=== PATIENT | male | born 1945 | race Caucasian/White ===

== ENCOUNTER 2019-12-18 10:04 | Outpatient (REF) | payer MEDICARE, OTHER, SELFPAY ==
[2019-12-18 11:52] LABS: Basophils Percent Auto 0.7 % (0-2); Eosinophils Absolute Auto 0.2 X10*3/uL (0.0-0.4); Hematocrit 40.8 % (42-52); Hemoglobin 13.5 g/dl (14.0-18.0); Imm Gran Abs Auto 0.05 X10*3/uL (0.00-0.03); Imm Gran Pct Auto 0.9 % (0.0-0.4); Lymphocytes Absolute Auto 0.6 X10*3/uL (1.2-4.9); Lymphocytes Percent Auto 10.8 % (20-40); MANUAL DIFF FLAG SCAN; Mean Corpuscular HGB Conc 33.1 g/dl (31.0-36.0); Mean Corpuscular Hemoglobin 31.6 pg (27.0-33.0); Mean Corpuscular Volume 95.6 fL (80-98); Mean Platelet Volume 10.4 fL (9.4-12.4); Monocytes Absolute Auto 0.7 X10*3/uL (0.1-1.2); Monocytes Percent Auto 12.5 % (2-11); Neutrophils Absolute Auto 3.9 X10*3/uL (2.0-8.3); Neutrophils Percent Auto 71.1 % (45-73); Platelet Count 155 X10*3/uL (160-400); Red Blood Count 4.27 X10*6/uL (4.60-5.80); Red Cell Distribution Width 12.9 % (11.0-16.0); SCAN SMEAR FLAG 1; White Blood Count 5.4 X10*3/uL (4.8-10.8)
[2019-12-18 12:08] LABS: Glucose Urine UA NEG (NEG); Leukocyte Esterase Urine NEG (NEG); Nitrite Urine NEG (NEG); Specific Gravity - Urine 1.025 (1.005-1.025); Urine Blood NEG (NEG); Urine Ketones NEG (NEG); Urine Protein NEG (NEG-TRACE)
[2019-12-18 12:18] LABS: Appearance Urine HAZY; Color Urine YELLOW
[2019-12-18 12:21] LABS: Alanine Aminotransferase 28 U/L (0-40); Albumin Level 3.9 g/dL (3.5-5.0); Alkaline Phosphatase 78 U/L (39-117); Anion Gap 15 (12-20); Aspartate Amino Transferase 29 U/L (5-37); Bilirubin Total 0.7 mg/dL (0.0-1.0); Blood Urea Nitrogen 22 mg/dL (9-16); Calcium 9.4 mg/dL (8.4-10.2); Carbon Dioxide 22 mmol/L (22-29); Chloride 107 mmol/L (96-108); Cholesterol 114 mg/dL; Estimated Glomerular Filt Rate > 60; Glucose Fasting 94 mg/dL (60-99); HDL Cholesterol 44 mg/dL; LDL Cholesterol Calculated 55 mg/dl; Potassium 4.2 mmol/l (3.3-5.1); Sodium 140 mmol/L (135-145); Total Protein 7.3 g/dL (6.5-8.0); Triglycerides 77 mg/dL
[2019-12-18 12:39] LABS: SLIDE REVIEW VERIFIED
[2019-12-18 12:44] LABS: Prostate Specific Antigen 0.52 ng/mL (<0.05-4.0)
[2019-12-18 14:02] LABS: Reflex LDLD? No
== END 2019-12-18 10:05 | disposition home or self-care (01) ==
LOC: HO.LAB 10:04
PROVIDERS: PCP Internal Medicine; Visit Provider Internal Medicine
DX: E78.00 Pure hypercholesterolemia, unspecified (principal); D86.9 Sarcoidosis, unspecified; M87.051 Idiopathic aseptic necrosis of right femur
CPT/HCPCS: 36415; 80053; 80061; 81003; 84153; 85025

== ENCOUNTER → 2020-04-21 11:16 | Outpatient (BNVA) | payer MEDICARE, OTHER, SELFPAY | PROVIDERS: PCP Internal Medicine; Visit Provider Hospitalist | DX: D86.9 Sarcoidosis, unspecified (principal); J45.40 Moderate persistent asthma, uncomplicated; J30.9 Allergic rhinitis, unspecified | CPT/HCPCS: Q3014 ==

== ENCOUNTER 2020-06-16 10:51 | Outpatient (REF) | payer MEDICARE, OTHER, SELFPAY ==
[2020-06-16 12:26] LABS: Alanine Aminotransferase 32 U/L (0-40); Alkaline Phosphatase 72 U/L (39-117); Aspartate Amino Transferase 32 U/L (5-37); Bilirubin Direct 0.4 mg/dL (0.0-0.5); Cholesterol 122 mg/dL; HDL Cholesterol 43 mg/dL; LDL Cholesterol Calculated 57 mg/dl; Total Protein 7.2 g/dL (6.5-8.0); Triglycerides 112 mg/dL
[2020-06-16 13:27] LABS: Reflex LDLD? No
== END 2020-06-16 10:52 | disposition home or self-care (01) ==
LOC: HO.LNP 10:51
PROVIDERS: Visit Provider Internal Medicine
DX: E78.00 Pure hypercholesterolemia, unspecified (principal)
CPT/HCPCS: 80061; 80076

== ENCOUNTER 2020-06-18 13:44 | Outpatient (REF) | payer MEDICARE, OTHER, SELFPAY ==
[2020-06-18 13:59] LABS: Basophils Percent Auto 0.7 % (0-2); Eosinophils Absolute Auto 0.3 X10*3/uL (0.0-0.4); Eosinophils Percent Auto 4.6 % (0-4); Hematocrit 42.1 % (42-52); Hemoglobin 13.8 g/dl (14.0-18.0); Imm Gran Abs Auto 0.07 X10*3/uL (0.00-0.03); Imm Gran Pct Auto 1.2 % (0.0-0.4); Lymphocytes Absolute Auto 0.6 X10*3/uL (1.2-4.9); Lymphocytes Percent Auto 9.4 % (20-40); MANUAL DIFF FLAG SCAN; Mean Corpuscular HGB Conc 32.8 g/dl (31.0-36.0); Mean Corpuscular Hemoglobin 32.1 pg (27.0-33.0); Mean Corpuscular Volume 97.9 fL (80-98); Mean Platelet Volume 11.7 fL (9.4-12.4); Monocytes Absolute Auto 0.7 X10*3/uL (0.1-1.2); Monocytes Percent Auto 11.2 % (2-11); Neutrophils Absolute Auto 4.3 X10*3/uL (2.0-8.3); Neutrophils Percent Auto 72.9 % (45-73); Platelet Count 144 X10*3/uL (160-400); Red Cell Distribution Width 13.3 % (11.0-16.0); SCAN SMEAR FLAG 1; White Blood Count 5.9 X10*3/uL (4.8-10.8)
[2020-06-18 14:36] LABS: Iron 93 mcg/dL (45-160); Percent Iron Saturation 32 % (15-50); Total Iron Binding Capacity 289 mcg/dL (228-428); Unsaturated Iron Binding 196 ug/dL
[2020-06-18 14:44] LABS: SLIDE REVIEW VERIFIED
[2020-06-18 15:01] LABS: Thyroid Stimulating Hormone 2.37 uIU/mL (0.32-4.0)
== END 2020-06-18 13:45 | disposition home or self-care (01) ==
LOC: HO.LNP 13:44
PROVIDERS: Visit Provider Internal Medicine
DX: R53.83 Other fatigue (principal); R06.02 Shortness of breath
CPT/HCPCS: 83540; 84443; 85025

== ENCOUNTER 2020-06-23 07:55 | Outpatient (REF) | payer MEDICARE, OTHER, SELFPAY ==
--- NOTE | ~2020-06-23 | XR_ITS ---
EXAMINATION: XR CHEST CLINICAL INFORMATION: Moderate persistent asthma COMPARISON: Chest x-ray November 07, 2016 TECHNIQUE: 2 views of the chest were obtained. FINDINGS: Cardiac silhouette is normal in size. The lungs are adequately aerated. Mild interval increase in prominence of interstitial markings diffusely, particularly the left upper lobe. Previously visualized fibrotic changes and scarring with calcifications of the right lung apex is again noted. No pneumothorax or pleural effusion. Mild to moderate diffuse degenerative changes of the spine. XR/XR chest 2V IMPRESSION: Mild interval worsening in prominence of the interstitial markings diffusely, particularly within the left upper lobe. This may represent progression of chronic changes, however, superimposed left upper lobe infiltrate or mass is within the differential. Clinical correlation is recommended. Further evaluation with chest CT may be warranted.
[2020-06-23 09:48] LABS: B Type Natriuretic Peptide 220 pg/mL (<100); Troponin-I High Sensitivity 13.5 ng/L (<3.5-35.0)
[2020-06-23 09:53] LABS: Anion Gap 11 (12-20); Blood Urea Nitrogen 24 mg/dL (9-16); Calcium 9.8 mg/dL (8.4-10.2); Carbon Dioxide 28 mmol/L (22-29); Chloride 108 mmol/L (96-108); Estimated Glomerular Filt Rate 49; Glucose Random 101 mg/dL (60-115); Potassium 4.8 mmol/L (3.3-5.1); Sodium 142 mmol/L (135-145)
[2020-06-23 10:15] LABS: Erythrocyte Sedimentation Rate 7 MM/HR (0-15)
[2020-06-24 10:01] LABS: Immunoglobulin E 381 kU/L (<OR=114)
[2020-06-24 14:07] LABS: Anti Nuclear Antibody Screen NEGATIVE (NEGATIVE)
[2020-07-04 01:31] LABS: Angiotensin Converting Enzyme 30 U/L (9-67)
== END 2020-06-23 07:56 | disposition home or self-care (01) ==
LOC: HO.XRAY 07:55
PROVIDERS: PCP Internal Medicine; Visit Provider Hospitalist
DX: J45.40 Moderate persistent asthma, uncomplicated (principal); J30.9 Allergic rhinitis, unspecified; D86.9 Sarcoidosis, unspecified
CPT/HCPCS: 36415; 71046; 80048; 82164; 82785; 83880; 84484; 85652; 86038; 86039; 99212

== ENCOUNTER → 2020-06-24 14:59 | Outpatient (REF) | payer MEDICARE, OTHER, SELFPAY ==
--- NOTE | 2020-06-24 15:04 | CA_ITS ---
Transthoracic Echocardiogram Patient (Last, First, Middle): Erasmo Quevedo B Gender: Male Date of : 1945 Age: 75 Procedure Date: 06/24/2020 Procedure Type: Transthoracic Echocardiogram Location: OP Height: 172.72 cm Weight: 106.6 kg BSA: 2.19 m2 Heart Rate: bpm BP: 135 / 68 mmHg Window Dresser: Referring MD: Sebastian Patricia MD Play Reader: Joon Hopper MD Symptoms: I27.20 - Pulmonary hypertension, unspecified Study Quality: Fair ECG Rhythm: Sinus Conclusions: - 1. Normal LV systolic function with impaired relaxation filling pattern 2. Fibrocalcific aortic valve changes noted with mildly increased gradient suggestive of early aortic stenosis 3. Normal RV systolic pressure 4. No pericardial effusion Findings Left Ventricle Normal left ventricular size and systolic function. There is mildly increased left ventricular wall thickness. The visually estimated ejection fraction is between 60-65%. Spectral Doppler is indicative of an impaired relaxation filling pattern. E/E prime ratio is between 8 and 15 consistent with indeterminate filling pressures. Right Ventricle Normal right ventricular cavity size and systolic function. Atria The left atrium is mildly dilated. There is no evidence of interatrial shunt. The right atrium was not well visualized. Aortic Valve The aortic valve was not well visualized. There is mild calcification of the aortic valve. There is mild thickening of the aortic valve. The mean gradient is 10 mmHg. The aortic valve area is 2.13 cm2. There is no aortic valve regurgitation. Mitral Valve Normal mitral valve structure and function. There is trace mitral valve regurgitation. There is no mitral valve stenosis. Pulmonic Valve The pulmonic valve was not well visualized. Tricuspid Valve Likely normal tricuspid valve structure and function. There is trace tricuspid valve regurgitation. The right ventricular systolic pressure is normal. The right ventricular systolic pressure is 18 mmHg. Normal right atrial pressure. There is no evidence of pulmonary hypertension. Great Vessels All visible segments of the aorta are normal in size. The pulmonary artery was not well visualized. Venous The inferior vena cava is normal in size and collapses greater than 50% with inspiration. Pericardium/Pleural There is no evidence of pericardial effusion. Measurements 2D Linear Measurements IVSd: 1.26 0.6-0.9/0.6-1.0 cm LVIDd: 5.47 3.9-5.3/4.2-5.9 cm LVIDd Index: 2.50 2.4-3.2/2.2-3.1 cm/m2 LVIDs: 3.79 2.0-3.6 cm LVPWd: 1.27 0.7-1.1 cm Ao Root: 3.30 2.1-3.5 cm LA Diam: 4.80 2.7-3.8/3.0-4.0 cm LAIDs Index: 2.19 1.5-2.3 cm/m2 LV Mass: 362.27 67-162/88-224 g LV Mass Index: 165.42 43-95/49-115 g/m2 LVOT Diam: 2.60 3.0+(-)1.3 cm Mitral Valve MV Pk E: 0.59 MV PK A: 0.52 MV Decel Time: 239.00 E/A: 1.10 E'Lateral: 7.25 E'Medial: 5.42 E/E' Med: 10.80 E/E' Lat: 8.10 PHT: 70.00 MVA PHT: 3.14 Decel [place]: 2.45 Aortic Valve AoV Pk John: 2.05 AoV Mn John: 1.46 AoV VTI: 0.50 AoV Pk Grad: 17.00 Aov Mn Grad: 10.00 NATHALIE Cont.VTI: 2.13 LVOT LVOT Pk John: 0.93 LVOT Mn John: 0.63 LVOT VTI: 0.20 LVOT Pk Grad: 3.00 LVOT Mn Grad: 2.00 LVOT Diam: 2.60 LVOT Area: 5.31 Diastolic Function MV Pk E: 0.59 MV Pk A: 0.52 E/A: 1.10 E'Medial: 5.42 E/E' Med: 10.80 E' Laterial: 7.25 E/E' Lat: 8.10 Tricuspid Valve TR Pk John: 1.95 TR Pk Grad: 15.00 RA Press: 3.00 RVSP: 18.00 Great Vessels Aorta Ao Root-2D: 3.30 2.0-3.7 cm Ao Asc: 3.40 2.1-3.4 cm Pulmonary Valve PV Pk John: 0.87 Peak PV Grad: 3.00 Updated in Other Vendor System with Status of Final Joon Hopper MD electronically signed on 06/25/2020 4:21:44 PM with status of Final
== END ==
LOC: HO.CARD 14:59
PROVIDERS: Visit Provider Hospitalist
DX: I27.20 Pulmonary hypertension, unspecified (principal)
CPT/HCPCS: 93306

== ENCOUNTER 2020-06-29 12:49 | Outpatient (REF) | payer MEDICARE, OTHER, SELFPAY ==
--- NOTE | ~2020-06-29 | XR_ITS ---
EXAMINATION: XR CHEST CLINICAL INFORMATION: Sarcoidosis. COMPARISON: Previous chest x-ray May 2020 TECHNIQUE: 2 views of the chest were obtained. FINDINGS: The cardiac silhouette does not appear enlarged. The pulmonary [place] are prominent. This is unchanged. There are increased interstitial markings. There are small nodules. There is a larger abnormal parenchymal density in the left upper lobe and the left hilar region. These findings appear unchanged from previous chest x-rays. There is no pleural effusion or pneumothorax. There are degenerative changes of the spine. XR/XR chest 2V IMPRESSION: Stable chest x-ray findings.
[2020-06-29 15:01] LABS: Anion Gap 13 (12-20); Blood Urea Nitrogen 29 mg/dL (9-16); Calcium 9.4 mg/dL (8.4-10.2); Carbon Dioxide 26 mmol/L (22-29); Chloride 107 mmol/L (96-108); Estimated Glomerular Filt Rate 46; Glucose Random 100 mg/dL (60-115); Potassium 4.3 mmol/L (3.3-5.1); Sodium 142 mmol/L (135-145)
== END 2020-06-29 12:50 | disposition home or self-care (01) ==
LOC: HO.RESP 12:49
PROVIDERS: PCP Internal Medicine; Visit Provider Hospitalist
DX: J45.40 Moderate persistent asthma, uncomplicated (principal); D86.9 Sarcoidosis, unspecified
CPT/HCPCS: 36415; 71046; 80048; 94060; 94727; 94729

== ENCOUNTER → 2020-07-06 10:41 | Outpatient (BNVA) | payer MEDICARE, OTHER, SELFPAY | PROVIDERS: PCP Internal Medicine; Referring Provider Internal Medicine; Visit Provider Internal Medicine Cardiovascular Disease | DX: I25.10 Atherosclerotic heart disease of native coronary artery without angina pectoris (principal); R06.02 Shortness of breath | CPT/HCPCS: 93005; 99212 ==

== ENCOUNTER → 2020-07-10 10:02 | Outpatient (BNVA) | payer MEDICARE, OTHER, SELFPAY | PROVIDERS: PCP Internal Medicine; Visit Provider Hospitalist | DX: J98.4 Other disorders of lung (principal); J45.40 Moderate persistent asthma, uncomplicated; R06.01 Orthopnea | CPT/HCPCS: 99212 ==

== ENCOUNTER 2020-07-20 09:41 | Outpatient (REF) | payer MEDICARE, OTHER, SELFPAY ==
--- NOTE | ~2020-07-20 | CT_ITS ---
EXAMINATION: CT CHEST WITHOUT CONTRAST CLINICAL INFORMATION: Sarcoidosis. COMPARISON: Chest x-ray 06/29/2020. TECHNIQUE: Multidetector volumetric CT imaging of the chest was done. Axial MIP volume rendering provided. Sagittal and coronal reformatted images were obtained. This CT examination was performed using dose optimization techniques as appropriate, variously including the following: *Automated exposure control *Adjustment of mA and/or kV according to patient size (this includes techniques or standardized protocols for targeted exams where dose is matched to indication/reason for exam; i.e. extremities or head) *Use of iterative reconstruction technique DLP: 251 mGy-cm. FINDINGS: COMMUNITY CENTER WORKER: Expanded lungs with increased interstitial markings in both lungs. No consolidation seen. LUNGS: There are patchy parenchymal opacities in both upper lobes condensing into larger opacities and extending to the suprahilar region bilaterally. There are multiple bilateral vysza-mn-naklqmbl-sized pulmonary nodule seen in both upper lobes, and both lower lower lobes numerous to count. There are less nodules seen in the right middle lobe and the lingula. MEDIASTINUM: The thyroid lobes are symmetrical and normal. The central trachea and the bronchi are widely patent. There are multiple calcified tjafl-ai-dsgjhacb sized mediastinal lymph nodes. The heart size and the great vessels are normal caliber. There are coronary artery calcifications. No pleural effusion seen. PLEURA: There is no pleural effusion. No pleural mass or thickening. AXILLA: No lymphadenopathy. UPPER ABDOMEN: Visualized liver, spleen, pancreas and bilateral adrenal glands are unremarkable. OSSEOUS STRUCTURES: No lytic or sclerotic process seen. CT/CT chest wo con IMPRESSION: Bilateral patchy parenchymal opacities and nodules in both upper and lower lobes consistent with sarcoid disease. There are numerous calcified mediastinal lymph nodes. There is no pleural effusion or pleural thickening.
== END 2020-07-20 09:42 | disposition home or self-care (01) ==
LOC: HO.CT 09:41
PROVIDERS: PCP Internal Medicine; Visit Provider Hospitalist
DX: D86.9 Sarcoidosis, unspecified (principal); R06.01 Orthopnea; J98.4 Other disorders of lung
CPT/HCPCS: 71250

== ENCOUNTER → 2020-08-07 09:45 | Outpatient (BNVA) | payer MEDICARE, OTHER, SELFPAY | PROVIDERS: PCP Internal Medicine; Visit Provider Hospitalist | DX: J98.4 Other disorders of lung (principal); J45.40 Moderate persistent asthma, uncomplicated; J30.9 Allergic rhinitis, unspecified; N18.9 Chronic kidney disease, unspecified; D86.9 Sarcoidosis, unspecified; R06.02 Shortness of breath | CPT/HCPCS: 99212 ==

== ENCOUNTER 2020-09-29 13:22 | Outpatient (REF) | payer MEDICARE, OTHER, SELFPAY ==
[2020-09-29 14:30] LABS: MANUAL DIFF FLAG NO
[2020-09-29 14:40] LABS: Basophils Percent Auto 0.5 % (0-2); Eosinophils Absolute Auto 0.2 X10*3/uL (0.0-0.4); Eosinophils Percent Auto 3.9 % (0-4); Hematocrit 40.6 % (42-52); Hemoglobin 13.4 g/dl (14.0-18.0); Imm Gran Abs Auto 0.03 X10*3/uL (0.00-0.03); Imm Gran Pct Auto 0.5 % (0.0-0.4); Lymphocytes Absolute Auto 0.7 X10*3/uL (1.2-4.9); Lymphocytes Percent Auto 12.9 % (20-40); Mean Corpuscular Hemoglobin 31.9 pg (27.0-33.0); Mean Corpuscular Volume 96.7 fL (80-98); Mean Platelet Volume 10.5 fL (9.4-12.4); Monocytes Absolute Auto 0.7 X10*3/uL (0.1-1.2); Monocytes Percent Auto 13.1 % (2-11); Neutrophils Absolute Auto 3.8 X10*3/uL (2.0-8.3); Neutrophils Percent Auto 69.1 % (45-73); Platelet Count 147 X10*3/uL (160-400); Red Cell Distribution Width 13.2 % (11.0-16.0); White Blood Count 5.6 X10*3/uL (4.8-10.8)
[2020-09-29 15:12] LABS: Alanine Aminotransferase 25 U/L (0-40); Albumin Level 3.7 g/dL (3.5-5.0); Alkaline Phosphatase 73 U/L (39-117); Anion Gap 13 (12-20); Aspartate Amino Transferase 27 U/L (5-37); Bilirubin Direct 0.3 mg/dL (0.0-0.5); Bilirubin Total 0.8 mg/dL (0.0-1.0); Blood Urea Nitrogen 19 mg/dL (9-16); Calcium 9.4 mg/dL (8.4-10.2); Carbon Dioxide 22 mmol/L (22-29); Chloride 110 mmol/L (96-108); Estimated Glomerular Filt Rate 58; Glucose Random 102 mg/dL (60-115); Potassium 4.5 mmol/L (3.3-5.1); Sodium 140 mmol/L (135-145); Total Protein 6.9 g/dL (6.5-8.0)
[2020-09-29 15:15] LABS: B Type Natriuretic Peptide 239 pg/mL (<100)
[2020-09-29 15:27] LABS: Erythrocyte Sedimentation Rate 12 MM/HR (0-15)
== END 2020-09-29 13:23 | disposition home or self-care (01) ==
LOC: HO.LAB 13:22
PROVIDERS: PCP Internal Medicine; Visit Provider Hospitalist
DX: D86.9 Sarcoidosis, unspecified (principal); I25.10 Atherosclerotic heart disease of native coronary artery without angina pectoris; J98.4 Other disorders of lung; R06.02 Shortness of breath
CPT/HCPCS: 36415; 80048; 80076; 83880; 85025; 85652

== ENCOUNTER 2020-10-29 10:19 | Outpatient (REF) | payer MEDICARE, OTHER, SELFPAY ==
[2020-10-29 10:52] LABS: MANUAL DIFF FLAG NO
[2020-10-29 11:29] LABS: Basophils Percent Auto 0.4 % (0-2); Eosinophils Absolute Auto 0.2 X10*3/uL (0.0-0.4); Eosinophils Percent Auto 4.5 % (0-4); Hematocrit 41.6 % (42-52); Imm Gran Abs Auto 0.06 X10*3/uL (0.00-0.03); Imm Gran Pct Auto 1.2 % (0.0-0.4); Lymphocytes Absolute Auto 0.6 X10*3/uL (1.2-4.9); Lymphocytes Percent Auto 11.5 % (20-40); Mean Corpuscular HGB Conc 33.7 g/dl (31.0-36.0); Mean Corpuscular Hemoglobin 32.3 pg (27.0-33.0); Mean Corpuscular Volume 96.1 fL (80-98); Mean Platelet Volume 10.6 fL (9.4-12.4); Monocytes Absolute Auto 0.6 X10*3/uL (0.1-1.2); Monocytes Percent Auto 12.1 % (2-11); Neutrophils Absolute Auto 3.5 X10*3/uL (2.0-8.3); Neutrophils Percent Auto 70.3 % (45-73); Platelet Count 151 X10*3/uL (160-400); Red Blood Count 4.33 X10*6/uL (4.60-5.80); Red Cell Distribution Width 13.1 % (11.0-16.0); White Blood Count 4.9 X10*3/uL (4.8-10.8)
[2020-10-29 11:31] LABS: Glucose Urine UA NEG (NEG); Leukocyte Esterase Urine NEG (NEG); Nitrite Urine NEG (NEG); Specific Gravity - Urine 1.015 (1.005-1.025); Urine Blood NEG (NEG); Urine Ketones NEG (NEG); Urine Protein NEG (NEG-TRACE)
[2020-10-29 11:34] LABS: Appearance Urine CLEAR; Color Urine YELLOW
[2020-10-29 11:42] LABS: Anion Gap 11 (12-20); Blood Urea Nitrogen 20 mg/dL (9-16); Carbon Dioxide 23 mmol/L (22-29); Chloride 108 mmol/L (96-108); Estimated Glomerular Filt Rate > 60; Phosphorus 2.9 mg/dL (2.7-4.5); Potassium 4.4 mmol/L (3.3-5.1); Sodium 138 mmol/L (135-145)
[2020-10-29 11:50] LABS: B Type Natriuretic Peptide 135 pg/mL (<100)
[2020-10-29 12:10] LABS: Creatinine, mg/dL 80.57
[2020-10-29 12:13] LABS: Creatinine Urine 134.28 mg/dL; Microalbum/Creatinine Ratio Ur 5.9 ug/mg cr; Total Protein Urine Random < 7 mg/dL (<12)
[2020-10-29 12:26] LABS: Creatinine, 24Hr Urine 1.1 G/Day (1.0-2.0); Sodium 24 Hr Urine 141.1 mmol/Day (40-220); Total Volume 24 Hour Urine 1425 mL
[2020-10-29 12:48] LABS: Creatinine (CrCl) 1.16 mg/dL (0.5-1.4); Creatinine Clearance 68.7 mL/min (85-125)
[2020-10-30 12:34] LABS: Calcium 9.8 mg/dL (8.4-10.2)
[2020-10-30 17:51] LABS: Calcium (PTHI) 9.7 mg/dL (8.6-10.3); PTHI 17 pg/mL (14-64)
== END 2020-10-29 10:20 | disposition home or self-care (01) ==
LOC: HO.LAB 10:19
PROVIDERS: Internal Medicine Nephrology; PCP Internal Medicine; Visit Provider Internal Medicine Nephrology
DX: N20.0 Calculus of kidney (principal); D86.0 Sarcoidosis of lung; N18.31 Chronic kidney disease, stage 3a; N25.0 Renal osteodystrophy
CPT/HCPCS: 36415; 80051; 81003; 82040; 82043; 82306; 82308; 82310; 82565; 82575; 83880; 83970; 84100; 84156; 84300; 84520; 85025; 87086

== ENCOUNTER 2020-11-06 | Outpatient (REF) | payer MEDICARE, OTHER, SELFPAY | END 2020-11-06 00:01 | disposition home or self-care (01) | LOC: CF | PROVIDERS: Visit Provider Hospitalist | DX: J98.4 Other disorders of lung (principal); N18.9 Chronic kidney disease, unspecified; R06.02 Shortness of breath; J45.40 Moderate persistent asthma, uncomplicated; J30.9 Allergic rhinitis, unspecified; D86.9 Sarcoidosis, unspecified; I25.10 Atherosclerotic heart disease of native coronary artery without angina pectoris; I49.3 Ventricular premature depolarization; I47.2 Ventricular tachycardia; Z88.0 Allergy status to penicillin; Z88.8 Allergy status to other drugs, medicaments and biological substances; Z91.041 Radiographic dye allergy status; Z95.5 Presence of coronary angioplasty implant and graft | CPT/HCPCS: 99212 ==

== ENCOUNTER 2020-12-28 11:04 | Outpatient (REF) | payer MEDICARE, OTHER, SELFPAY ==
[2020-12-28 11:08] LABS: MANUAL DIFF FLAG NO
[2020-12-28 11:12] LABS: Basophils Absolute Auto 0.1 X10*3/uL (0.0-0.2); Basophils Percent Auto 0.9 % (0-2); Eosinophils Absolute Auto 0.3 X10*3/uL (0.0-0.4); Eosinophils Percent Auto 5.3 % (0-4); Hematocrit 44.2 % (42.0-52.0); Hemoglobin 14.5 g/dl (14.0-18.0); Imm Gran Abs Auto 0.04 X10*3/uL (0.00-0.03); Imm Gran Pct Auto 0.7 % (0.0-0.4); Lymphocytes Absolute Auto 0.9 X10*3/uL (1.2-4.9); Lymphocytes Percent Auto 16.7 % (20-40); Mean Corpuscular HGB Conc 32.8 g/dl (31.0-36.0); Mean Corpuscular Hemoglobin 32.4 pg (27.0-33.0); Mean Corpuscular Volume 98.7 fL (80.0-98.0); Mean Platelet Volume 11.7 fL (9.4-12.4); Monocytes Absolute Auto 0.6 X10*3/uL (0.1-1.2); Monocytes Percent Auto 11.7 % (2-11); Neutrophils Absolute Auto 3.52 x10*3/uL (2.0-8.3); Neutrophils Percent Auto 64.7 % (45-73); Platelet Count 151 X10*3/uL (160-400); Red Blood Count 4.48 X10*6/uL (4.60-5.80); Red Cell Distribution Width 12.8 % (11.0-16.0); White Blood Count 5.5 X10*3/uL (4.8-10.8)
[2020-12-28 11:41] LABS: Alanine Aminotransferase 33 U/L (0-40); Albumin Level 3.9 g/dL (3.5-5.0); Alkaline Phosphatase 69 U/L (39-117); Anion Gap 14 (12-20); Aspartate Amino Transferase 32 U/L (5-37); Bilirubin Total 1.1 mg/dL (0.0-1.0); Blood Urea Nitrogen 21 mg/dL (9-16); Calcium 9.8 mg/dL (8.4-10.2); Carbon Dioxide 27 mmol/L (22-29); Chloride 105 mmol/L (96-108); Cholesterol 110 mg/dL; Estimated Glomerular Filt Rate 55; Glucose Fasting 110 mg/dL (60-99); HDL Cholesterol 42 mg/dL; LDL Cholesterol Calculated 48 mg/dl; Potassium 4.5 mmol/L (3.3-5.1); Sodium 141 mmol/L (135-145); Total Protein 7.2 g/dL (6.5-8.0); Triglycerides 101 mg/dL
[2020-12-28 11:48] LABS: Appearance Urine CLEAR; Color Urine YELLOW; Glucose Urine UA NEG (NEG); Leukocyte Esterase Urine NEG (NEG); Nitrite Urine NEG (NEG); PH 6.5 (5.0-8.0); Urine Blood NEG (NEG); Urine Ketones NEG (NEG); Urine Protein NEG (NEG-TRACE)
[2020-12-28 11:58] LABS: Reflex LDLD? No
[2020-12-28 12:02] LABS: PSA,Total (Free>4and<10) 0.35 ng/mL (0.00-4.00)
== END 2020-12-28 11:05 | disposition home or self-care (01) ==
LOC: HO.LNP 11:04
PROVIDERS: Visit Provider Internal Medicine
DX: E78.00 Pure hypercholesterolemia, unspecified (principal); D86.9 Sarcoidosis, unspecified
CPT/HCPCS: 80053; 80061; 81003; 84153; 85025

== ENCOUNTER → 2021-01-07 10:14 | Outpatient (BNVA) | payer MEDICARE, OTHER, SELFPAY | PROVIDERS: PCP Internal Medicine; Referring Provider Internal Medicine; Visit Provider Internal Medicine Cardiovascular Disease | DX: I25.10 Atherosclerotic heart disease of native coronary artery without angina pectoris (principal); I49.3 Ventricular premature depolarization; R06.02 Shortness of breath | CPT/HCPCS: 99212 ==

== ENCOUNTER 2021-03-16 09:03 | Outpatient (REF) | payer MEDICARE, OTHER, SELFPAY ==
--- NOTE | 2021-03-16 | PFT_ITS ---
FLOWS: FEV1 78% of predicted at 2.39 L. FVC 72% of predicted at 3.06 L. FEV1 to FVC ratio of 0.78. No bronchodilator response except in ylkkr-ty-iusobo airways. LUNG VOLUMES: Total lung capacity 74% of predicted at 5.23 L. Residual volume 73% of predicted at 1.88 L. FVC 74% of predicted at 3.35 L. Expiratory reserve volume 7% of predicted at 0.10 L. Diffusion capacity is mildly decreased, diffusion capacity adjusted to normal after correction for alveolar ventilation. IMPRESSION: Moderate restrictive ventilatory defect with no bronchodilator response except in qpkzw-kk-bgysdp airways. Decreased expiratory reserve volume suggests extrathoracic restriction likely secondary to abdominal obesity. Decreased diffusion capacity suggests emphysema. MD CHACHO Bustos/MODL / [id number]
== END 2021-03-16 09:04 | disposition home or self-care (01) ==
LOC: HO.RESP 09:03
PROVIDERS: PCP Internal Medicine; Visit Provider Hospitalist
DX: J44.9 Chronic obstructive pulmonary disease, unspecified (principal); J98.4 Other disorders of lung; R06.02 Shortness of breath; J45.40 Moderate persistent asthma, uncomplicated; J30.9 Allergic rhinitis, unspecified; D86.9 Sarcoidosis, unspecified; N18.9 Chronic kidney disease, unspecified
CPT/HCPCS: 94060; 94727; 94729; 99212

== ENCOUNTER → 2021-06-09 13:24 | Outpatient (REF) | payer MEDICARE, OTHER, SELFPAY ==
--- NOTE | 2021-06-09 14:07 | CA_ITS ---
Transthoracic Echocardiogram Patient (Last, First, Middle): Erasmo Quevedo B Gender: Male Date of : 1945 Age: 76 Procedure Date: 06/09/2021 Procedure Type: Transthoracic Echocardiogram Location: OP Height: 180.34 cm Weight: 100.7 kg BSA: 2.20 m2 Heart Rate: bpm BP: 125 / 76 mmHg Ship Pilot: DANNA Referring MD: Joon Hopper MD Er Tech: Joon Hopper MD Symptoms: R06.02 - Shortness of breath Study Quality: Technically Difficult ECG Rhythm: Sinus Conclusions: - 1. Mildly reduced LV systolic function with LVEF of 45-50% with impaired relaxation filling pattern 2. Normal cardiac valvular Doppler 3. Normal RV systolic pressure 4. No gross pericardial effusion Findings Left Ventricle The left ventricle was not well visualized. There is normal left ventricular wall thickness. The left ventricular systolic function is mildly decreased. The visually estimated ejection fraction is between 45-50%. Spectral Doppler is indicative of an impaired relaxation filling pattern. E/E prime ratio is between 8 and 15 consistent with indeterminate filling pressures. Right Ventricle The right ventricle was not well visualized. Atria The left atrium was not well visualized. Interatrial shunt cannot be excluded. The right atrium was not well visualized. Aortic Valve There is mild calcification of the aortic valve. There is moderate thickening of the aortic valve. There is no aortic valve stenosis. There is no aortic valve regurgitation. Mitral Valve There is mild anterior mitral leaflet thickening. There is trace mitral valve regurgitation. There is no mitral valve stenosis. Pulmonic Valve The pulmonic valve was not well visualized. Tricuspid Valve The tricuspid valve was not well visualized. There is trace tricuspid valve regurgitation. The right ventricular systolic pressure is normal. The right ventricular systolic pressure is 22 mmHg. Normal right atrial pressure. There is no evidence of pulmonary hypertension. Great Vessels All visible segments of the aorta are normal in size. The pulmonary artery was not well visualized. Venous The inferior vena cava is normal in size and collapses greater than 50% with inspiration. Pericardium/Pleural There is no evidence of pericardial effusion. Prior Study Comparison Changes noted compared to prior study dated: 06/24/2020. LV systolic function is reduced Measurements 2D Linear Measurements IVSd: 1.33 0.6-0.9/0.6-1.0 cm LVIDd: 5.91 3.9-5.3/4.2-5.9 cm LVIDd Index: 2.69 2.4-3.2/2.2-3.1 cm/m2 LVIDs: 4.71 2.0-3.6 cm LVPWd: 1.06 0.7-1.1 cm LA Diam: 4.40 2.7-3.8/3.0-4.0 cm LAIDs Index: 2.00 1.5-2.3 cm/m2 LV Mass: 379.98 67-162/88-224 g LV Mass Index: 172.72 43-95/49-115 g/m2 LVOT Diam: 2.50 3.0+(-)1.3 cm 2D Systolic Function EF 4C: 50.50 >55% EF 2C: 45.80 >55% EF BiP: 47.80 >55% Mitral Valve MV Pk E: 0.46 MV PK A: 0.49 MV Decel Time: 313.00 E/A: 0.90 E'Lateral: 3.92 E'Medial: 3.15 E/E' Med: 14.50 E/E' Lat: 11.70 PHT: 92.00 MVA PHT: 2.39 Decel [place]: 1.47 Aortic Valve AoV Pk John: 1.61 AoV Mn John: 1.09 AoV VTI: 0.33 AoV Pk Grad: 10.00 Aov Mn Grad: 5.00 NATHALIE Cont.VTI: 2.28 LVOT LVOT Pk John: 0.71 LVOT Mn John: 0.48 LVOT VTI: 0.15 LVOT Pk Grad: 2.00 LVOT Mn Grad: 1.00 LVOT Diam: 2.50 LVOT Area: 4.91 Diastolic Function MV Pk E: 0.46 MV Pk A: 0.49 E/A: 0.90 E'Medial: 3.15 E/E' Med: 14.50 E' Laterial: 3.92 E/E' Lat: 11.70 Right Ventricle TAPSE (mm): 23.00 Tricuspid Valve TR Pk John: 1.86 TR Pk Grad: 14.00 RA Press: 8.00 RVSP: 22.00 Great Vessels Aorta Sinus of Valsalva: 3.52 2.0-3.[address] Ridge: 3.13 1.7-3.4 cm Ao Asc: 3.60 2.1-3.4 cm Ao Arch: 3.20 Updated in Other Vendor System with Status of Final Joon Hopper MD electronically signed on 06/10/2021 9:00:35 AM with status of Final
== END ==
LOC: HO.CARD 13:24
PROVIDERS: Visit Provider Internal Medicine Cardiovascular Disease
DX: R06.02 Shortness of breath (principal)
CPT/HCPCS: 93306

== ENCOUNTER → 2021-06-22 14:00 | Outpatient (BNVA) | payer MEDICARE, OTHER, SELFPAY | PROVIDERS: PCP Internal Medicine; Referring Provider Internal Medicine; Visit Provider Internal Medicine Cardiovascular Disease | DX: I42.9 Cardiomyopathy, unspecified (principal); I25.10 Atherosclerotic heart disease of native coronary artery without angina pectoris | CPT/HCPCS: 99212 ==

== ENCOUNTER → 2021-06-24 09:22 | Outpatient (REF) | payer MEDICARE, OTHER, SELFPAY ==
--- NOTE | ~2021-06-24 | NM_ITS ---
Lexiscan Myocardial perfusion study Indication: Cardiomyopathy, assess for coronary disease and ischemia Technique: The patient was brought in for a Lexiscan perfusion study on 06/24/2021 and was injected 0.4 mg of Lexiscan intravenously. Within a minute of this injection 35 mCi of sestamibi was given intravenously. Images were obtained using the SPECT gamma camera interlaced with the gating device. Images were obtained in supine position. Resting perfusion study was performed on 06/25/2021. Patient was administered 35 mCi of sestamibi intravenously at rest. Images were then obtained in supine position. Total DLP 109mGy-cm. Images were processed with the software and compared side to side in short axis, horizontal long axis and vertical long axis views. Findings: Raw acquisition reviewed. The stress perfusion study showed no significant perfusion abnormality. Both uncorrected as well as CT attenuation corrected images were reviewed. The gated study shows mildly reduced LV systolic function with calculated LVEF of 50 %. LV cavity is normal in size. The gated study shows normal wall thickening and contraction of segments. Resting study shows no significant perfusion abnormality. Both uncorrected as well as CT attenuation corrected images were reviewed. Gating at rest reveals normal wall motion with ejection fraction at 51%. The findings are consistent with no definite reversible or fixed perfusion defects. NM/NM nicolás perf SPECT rest & str Impression: 1. Myocardial perfusion imaging study shows likely normal myocardial perfusion without any evidence of ischemia or infarction. 2. Gated LVEF is 50% during stress and 51% during rest. 3. Transient ischemic dilatation not present. EKG component of the test reported separately.
--- NOTE | 2021-06-24 09:25 | CA_ITS ---
Acquisition Time: 2021-06-24 09:39:24 Total Exercise Time: 00:02:00 Test Indications: SOB, ABN ECHO, PVC'S, NSVT Medications: SEE CHART Protocol: LEXISCAN Max HR: 076 BPM 52% of Pred: 144 BPM Max BP: 124/058 mmHG Max Work Load: 1.0 METS Pharmacological stress test with Lexiscan injection, while sitting and kicking his legs, without anginal symptoms, with isolated PVCs, with normotensive resposne to injection, with nondiagnostic EKG for ischemia. Nuclear images pending. Test reviewed with Dr Traore. Referred By: Joon Hopper Overread By: PETEY PAGE
== END ==
LOC: HO.CARD 09:22
PROVIDERS: Visit Provider Internal Medicine Cardiovascular Disease
DX: I25.10 Atherosclerotic heart disease of native coronary artery without angina pectoris (principal); I49.3 Ventricular premature depolarization; R06.02 Shortness of breath
CPT/HCPCS: 78452; 93017; A9500; J0280; J2785

== ENCOUNTER → 2021-06-29 14:54 | Outpatient (REF) | payer MEDICARE, OTHER, SELFPAY ==
--- NOTE | 2021-06-29 14:59 | HM_ITS ---
* Total monitoring time 3 days. * Underlying rhythm is sinus. Average rate 59/Min. Range 47 to 88/Min. * No atrial fibrillation or flutter or AV blocks or pauses. * Occasional supraventricular ectopy. [place] of 2.2%. 7 supraventricular episodes. Longest, 8 beats. * Frequent ventricular ectopy. Overall burden 7.6%. 2 morphologies. 238 couplets. 4 runs; longest 7 beats. * No patient events. MTDD
== END ==
LOC: HO.CARD 14:54
PROVIDERS: PCP Internal Medicine; Visit Provider Internal Medicine Cardiovascular Disease
DX: I49.3 Ventricular premature depolarization (principal)
CPT/HCPCS: 93242

== ENCOUNTER 2021-07-02 09:11 | Outpatient (REF) | payer MEDICARE, OTHER, SELFPAY ==
[2021-07-02 10:21] LABS: Anion Gap 12 (12-20); Blood Urea Nitrogen 20 mg/dL (9-16); Calcium 9.8 mg/dL (8.4-10.2); Carbon Dioxide 27 mmol/L (22-29); Chloride 106 mmol/L (96-108); Estimated Glomerular Filt Rate 50; Glucose Random 102 mg/dL (60-115); Potassium 4.5 mmol/L (3.3-5.1); Sodium 140 mmol/L (135-145)
[2021-07-02 10:22] LABS: Alanine Aminotransferase 34 U/L (0-40); Albumin Level 3.9 g/dL (3.5-5.0); Alkaline Phosphatase 68 U/L (39-117); Aspartate Amino Transferase 31 U/L (5-37); Bilirubin Direct 0.4 mg/dL (0.0-0.5); Bilirubin Total 0.9 mg/dL (0.0-1.0); Cholesterol 120 mg/dL; HDL Cholesterol 45 mg/dL; LDL Cholesterol Calculated 57 mg/dl; Total Protein 7.5 g/dL (6.5-8.0); Triglycerides 90 mg/dL
[2021-07-02 12:40] LABS: Reflex LDLD? No
== END 2021-07-02 09:12 | disposition home or self-care (01) ==
LOC: HO.LAB 09:11
PROVIDERS: Absent Provider Internal Medicine Cardiovascular Disease; PCP Internal Medicine; Visit Provider Internal Medicine
DX: I25.10 Atherosclerotic heart disease of native coronary artery without angina pectoris (principal); E78.00 Pure hypercholesterolemia, unspecified
CPT/HCPCS: 36415; 80048; 80061; 80076

== ENCOUNTER 2021-09-08 11:04 | Outpatient (REF) | payer MEDICARE, OTHER, SELFPAY ==
[2021-09-08 11:18] LABS: MANUAL DIFF FLAG NO
[2021-09-08 11:29] LABS: Basophils Absolute Auto 0.1 X10*3/uL (0.0-0.2); Basophils Percent Auto 0.7 % (0-2); Eosinophils Absolute Auto 0.2 X10*3/uL (0.0-0.4); Eosinophils Percent Auto 2.7 % (0-4); Hematocrit 41.2 % (42.0-52.0); Hemoglobin 13.7 g/dl (14.0-18.0); Imm Gran Abs Auto 0.04 X10*3/uL (0.00-0.03); Imm Gran Pct Auto 0.5 % (0.0-0.4); Lymphocytes Absolute Auto 0.8 X10*3/uL (1.2-4.9); Lymphocytes Percent Auto 10.6 % (20-40); Mean Corpuscular HGB Conc 33.3 g/dl (31.0-36.0); Mean Corpuscular Hemoglobin 32.5 pg (27.0-33.0); Mean Corpuscular Volume 97.6 fL (80.0-98.0); Mean Platelet Volume 10.5 fL (9.4-12.4); Monocytes Absolute Auto 0.7 X10*3/uL (0.1-1.2); Monocytes Percent Auto 9.5 % (2-11); Neutrophils Absolute Auto 5.7 x10*3/uL (2.0-8.3); Platelet Count 192 X10*3/uL (160-400); Red Blood Count 4.22 X10*6/uL (4.60-5.80); Red Cell Distribution Width 13.2 % (11.0-16.0); White Blood Count 7.4 X10*3/uL (4.8-10.8)
[2021-09-08 12:06] LABS: Erythrocyte Sedimentation Rate 23 MM/HR (0-15)
[2021-09-10 13:46] LABS: SARS COV2 IgG NEGATIVE
== END 2021-09-08 11:05 | disposition home or self-care (01) ==
LOC: HO.LAB 11:04
PROVIDERS: PCP Internal Medicine; Visit Provider Hospitalist
DX: J98.4 Other disorders of lung (principal); N18.9 Chronic kidney disease, unspecified; R06.02 Shortness of breath; J45.40 Moderate persistent asthma, uncomplicated; J30.9 Allergic rhinitis, unspecified; D86.9 Sarcoidosis, unspecified; G47.33 Obstructive sleep apnea (adult) (pediatric); Z20.822 Contact with and (suspected) exposure to COVID-19
CPT/HCPCS: 36415; 85025; 85652; 86769; 99212

== ENCOUNTER → 2021-09-13 09:52 | Outpatient (BNVA) | payer MEDICARE, OTHER, SELFPAY | PROVIDERS: PCP Internal Medicine; Referring Provider Internal Medicine; Visit Provider Internal Medicine Cardiovascular Disease | DX: I42.9 Cardiomyopathy, unspecified (principal); I25.10 Atherosclerotic heart disease of native coronary artery without angina pectoris; I49.3 Ventricular premature depolarization | CPT/HCPCS: 82607; 82746; 84439; 84443; 99212 ==

== ENCOUNTER 2021-09-13 15:42 | Outpatient (REF) | payer MEDICARE, OTHER, SELFPAY ==
[2021-09-13 16:23] LABS: TSH reflex Free T4 4.15 uIU/mL (0.32-4.0)
[2021-09-13 16:48] LABS: Folate 12.5 ng/mL (> or = 4.0); Vitamin B12 285 pg/mL (200-900)
[2021-09-13 17:01] LABS: Free T4 (Free Thyroxine) 0.85 ng/dL (0.71-1.85)
== END 2021-09-13 15:43 | disposition home or self-care (01) ==
LOC: HO.LNP 15:42
PROVIDERS: Visit Provider Internal Medicine
DX: Z13.89 Encounter for screening for other disorder (principal)
CPT/HCPCS: 82607; 82746; 84439; 84443

== ENCOUNTER → 2021-09-20 12:56 | Outpatient (REF) | payer MEDICARE, OTHER, SELFPAY | LOC: HO.SL 12:56 | PROVIDERS: PCP Internal Medicine; Visit Provider Internal Medicine Pulmonary Disease | DX: G47.33 Obstructive sleep apnea (adult) (pediatric) (principal) | CPT/HCPCS: 95806 ==

== ENCOUNTER → 2021-10-04 09:36 | Outpatient (BNVA) | payer MEDICARE, OTHER, SELFPAY | PROVIDERS: PCP Internal Medicine; Visit Provider Hospitalist | DX: G47.33 Obstructive sleep apnea (adult) (pediatric) (principal); J98.4 Other disorders of lung; J45.40 Moderate persistent asthma, uncomplicated; J30.9 Allergic rhinitis, unspecified; D86.9 Sarcoidosis, unspecified; N18.9 Chronic kidney disease, unspecified | CPT/HCPCS: Q3014 ==

== ENCOUNTER → 2021-12-29 15:53 | Outpatient (REF) | payer MEDICARE, OTHER, SELFPAY ==
--- NOTE | 2021-12-29 15:55 | CA_ITS ---
Transthoracic Echocardiogram Patient (Last, First, Middle): Erasmo Quevedo B Gender: Male Date of : 1945 Age: 76 Procedure Date: 12/29/2021 Procedure Type: Transthoracic Echocardiogram Location: OP Height: 180.34 cm Weight: 104.33 kg BSA: 2.24 m2 Heart Rate: bpm BP: 136 / 60 mmHg Director Of Parks And Recreation: Referring MD: Joon Hopper MD Symptoms: I42.9 - Cardiomyopathy, unspecified Study Quality: Good/Contrast used ECG Rhythm: Sinus Conclusions: - The left ventricular systolic function is mildly decreased. The calculated ejection fraction is 47% by biplane method. Findings Left Ventricle Normal left ventricular cavity size. There is mildly increased left ventricular wall thickness. The left ventricular systolic function is mildly decreased. The calculated ejection fraction is 47% by biplane method. There is mild global hypokinesis. Right Ventricle Moderately increased right ventricular cavity size. There is normal right ventricular systolic function. Venous The inferior vena cava is normal in size and collapses less than 50% with inspiration. Prior Study Comparison No significant change compared to prior study dated: 06/09/2021. Measurements 2D Linear Measurements IVSd: 1.20 0.6-0.9/0.6-1.0 cm LVIDd: 5.44 3.9-5.3/4.2-5.9 cm LVIDd Index: 2.43 2.4-3.2/2.2-3.1 cm/m2 LVIDs: 4.43 2.0-3.6 cm LVPWd: 1.24 0.7-1.1 cm LV Mass: 341.45 67-162/88-224 g LV Mass Index: 152.43 43-95/49-115 g/m2 LVOT Diam: 2.20 3.0+(-)1.3 cm 2D Systolic Function EF 4C: 50.00 >55% EF 2C: 41.60 >55% EF BiP: 47.30 >55% LVOT LVOT Pk John: 0.71 LVOT Mn John: 0.51 LVOT VTI: 0.14 LVOT Pk Grad: 2.00 LVOT Mn Grad: 1.00 LVOT Diam: 2.20 LVOT Area: 3.80 Tricuspid Valve TR Pk John: 1.78 TR Pk Grad: 13.00 RA Press: 3.00 RVSP: 16.00 Updated in Other Vendor System with Status of Final Osmar Traore MD electronically signed on 12/31/2021 11:12:56 AM with status of Final
== END ==
LOC: HO.CARD 15:53
PROVIDERS: PCP Internal Medicine; Visit Provider Internal Medicine Cardiovascular Disease
DX: I42.9 Cardiomyopathy, unspecified (principal)
CPT/HCPCS: 93308; Q9957

== ENCOUNTER 2021-12-30 10:50 | Outpatient (REF) | payer MEDICARE, OTHER, SELFPAY ==
[2021-12-30 10:54] LABS: MANUAL DIFF FLAG NO
[2021-12-30 11:08] LABS: Appearance Urine Clear; Color Urine Yellow; Glucose Urine UA Negative (Negative); Leukocyte Esterase Urine Trace (Negative); Nitrite Urine Negative (Negative); Specific Gravity - Urine 1.015 (1.005-1.025); UMIC TRIGGER UA YES; Urine Blood Negative (Negative); Urine Ketones Negative (Negative); Urine Protein Negative (Neg-Trace)
[2021-12-30 11:10] LABS: Basophils Percent Auto 0.5 % (0-2); Eosinophils Absolute Auto 0.4 X10*3/uL (0.0-0.4); Eosinophils Percent Auto 5.2 % (0-4); Hematocrit 41.6 % (42.0-52.0); Hemoglobin 13.3 g/dl (14.0-18.0); Imm Gran Abs Auto 0.06 X10*3/uL (0.00-0.03); Imm Gran Pct Auto 0.7 % (0.0-0.4); Lymphocytes Absolute Auto 1.6 X10*3/uL (1.2-4.9); Lymphocytes Percent Auto 19.7 % (20-40); Mean Corpuscular Hemoglobin 31.8 pg (27.0-33.0); Mean Corpuscular Volume 99.5 fL (80.0-98.0); Mean Platelet Volume 12.1 fL (9.4-12.4); Monocytes Percent Auto 11.7 % (2-11); Neutrophils Absolute Auto 5.1 x10*3/uL (2.0-8.3); Neutrophils Percent Auto 62.2 % (45-73); Platelet Count 191 X10*3/uL (160-400); Red Blood Count 4.18 X10*6/uL (4.60-5.80); Red Cell Distribution Width 13.3 % (11.0-16.0); White Blood Count 8.3 X10*3/uL (4.8-10.8)
[2021-12-30 11:11] LABS: Bacteria Urine None Seen (None Seen); Hyaline Casts Urine 0-2 /LPF (0-2); RBC Urine 0-2 /HPF (0-2); Squamous Epithelial Cell Urine 0-2 /HPF (0-2); WBC Urine 0-5 /HPF (0-5)
[2021-12-30 11:16] LABS: Alanine Aminotransferase 25 U/L (0-40); Albumin Level 3.6 g/dL (3.5-5.0); Alkaline Phosphatase 83 U/L (39-117); Anion Gap 15 (12-20); Aspartate Amino Transferase 26 U/L (5-37); Bilirubin Total 0.8 mg/dL (0.0-1.0); Blood Urea Nitrogen 16 mg/dL (9-16); Calcium 9.7 mg/dL (8.4-10.2); Carbon Dioxide 24 mmol/L (22-29); Chloride 107 mmol/L (96-108); Cholesterol 111 mg/dL; Estimated Glomerular Filt Rate 50; Glucose Fasting 111 mg/dL (60-99); HDL Cholesterol 43 mg/dL; LDL Cholesterol Calculated 52 mg/dl; Potassium 4.2 mmol/L (3.3-5.1); Sodium 142 mmol/L (135-145); Total Protein 7.3 g/dL (6.5-8.0); Triglycerides 81 mg/dL
[2021-12-30 11:37] LABS: PSA,Total (Free>4and<10) 0.53 ng/mL (0.00-4.00)
== END 2021-12-30 10:51 | disposition home or self-care (01) ==
LOC: HO.LNP 10:50
PROVIDERS: Visit Provider Internal Medicine
DX: E78.00 Pure hypercholesterolemia, unspecified (principal); D86.9 Sarcoidosis, unspecified; Z12.5 Encounter for screening for malignant neoplasm of prostate
CPT/HCPCS: 80053; 80061; 81001; 84153; 85025

== ENCOUNTER → 2022-01-18 09:48 | Outpatient (BNVA) | payer MEDICARE, OTHER, SELFPAY | PROVIDERS: PCP Internal Medicine; Visit Provider Hospitalist | DX: G47.33 Obstructive sleep apnea (adult) (pediatric) (principal); J98.4 Other disorders of lung; J45.40 Moderate persistent asthma, uncomplicated; J30.9 Allergic rhinitis, unspecified; D86.9 Sarcoidosis, unspecified | CPT/HCPCS: 99212 ==

== ENCOUNTER → 2022-03-22 10:00 | Outpatient (BNVA) | payer MEDICARE, OTHER, SELFPAY | PROVIDERS: PCP Internal Medicine; Referring Provider Internal Medicine; Visit Provider Internal Medicine Cardiovascular Disease | DX: I42.9 Cardiomyopathy, unspecified (principal); I25.10 Atherosclerotic heart disease of native coronary artery without angina pectoris | CPT/HCPCS: 99212 ==

== ENCOUNTER 2022-06-30 10:32 | Outpatient (REF) | payer MEDICARE, OTHER, SELFPAY ==
[2022-06-30 11:21] LABS: Alanine Aminotransferase 29 U/L (0-40); Albumin Level 3.7 g/dL (3.5-5.0); Alkaline Phosphatase 76 U/L (39-117); Aspartate Amino Transferase 27 U/L (5-37); Bilirubin Direct 0.3 mg/dL (0.0-0.5); Cholesterol 114 mg/dL; HDL Cholesterol 39 mg/dL; LDL Cholesterol Calculated 57 mg/dl; Total Protein 6.9 g/dL (6.5-8.0); Triglycerides 93 mg/dL
[2022-06-30 14:44] LABS: Reflex LDLD? No
== END 2022-06-30 10:33 | disposition home or self-care (01) ==
LOC: HO.LNP 10:32
PROVIDERS: PCP Internal Medicine; Visit Provider Internal Medicine
DX: E78.00 Pure hypercholesterolemia, unspecified (principal)
CPT/HCPCS: 80061; 80076

== ENCOUNTER → 2022-07-26 09:52 | Outpatient (BNVA) | payer MEDICARE, OTHER, SELFPAY | PROVIDERS: PCP Internal Medicine; Visit Provider Hospitalist | DX: G47.33 Obstructive sleep apnea (adult) (pediatric) (principal); J98.4 Other disorders of lung; J45.40 Moderate persistent asthma, uncomplicated; J30.9 Allergic rhinitis, unspecified; R91.8 Other nonspecific abnormal finding of lung field; D86.9 Sarcoidosis, unspecified; Z79.899 Other long term (current) drug therapy | CPT/HCPCS: 99212 ==

== ENCOUNTER 2022-08-19 12:48 | Outpatient (REF) | payer MEDICARE, OTHER, SELFPAY ==
--- NOTE | ~2022-08-19 | CT_ITS ---
EXAMINATION: CT HEAD WITHOUT CONTRAST CLINICAL INFORMATION: Disorientation. COMPARISON: None. TECHNIQUE: Contiguous axial imaging was performed from the skullbase to vertex without intravenous administration of contrast. This CT examination was performed using dose optimization techniques as appropriate, variously including the following: *Automated exposure control *Adjustment of mA and/or kV according to patient size (this includes techniques or standardized protocols for targeted exams where dose is matched to indication/reason for exam; i.e. extremities or head) *Use of iterative reconstruction technique DLP: 901 mGy-cm. FINDINGS: There is no evidence of acute intracranial hemorrhage or territorial infarction. No abnormal mass effect or midline shift is seen. Ferreira to white matter differentiation is well preserved. No extra-axial fluid collections are identified. Moderate generalized parenchymal volume loss noted with concordant ex vacuo prominence of the ventricles. Mild chronic white matter microangiopathic changes noted. The osseous structures and soft tissues are normal. The mastoid air cells are well aerated. There is mild mucosal thickening in the left maxillary antrum. CT/CT head/brain wo IV con IMPRESSION: No acute intracranial pathology. Moderate diffuse parenchymal volume loss and mild chronic white matter microangiopathy.
== END 2022-08-19 12:49 | disposition home or self-care (01) ==
LOC: HO.CT 12:48
PROVIDERS: PCP Internal Medicine; Visit Provider Internal Medicine
DX: R41.0 Disorientation, unspecified (principal); F34.1 Dysthymic disorder
CPT/HCPCS: 70450

== ENCOUNTER 2023-01-03 08:37 | Outpatient (REF) | payer MEDICARE, OTHER, SELFPAY ==
[2023-01-03 10:42] LABS: MANUAL DIFF FLAG NO
[2023-01-03 10:53] LABS: Basophils Percent Auto 0.5 % (0-2); Eosinophils Absolute Auto 0.3 X10*3/uL (0.0-0.4); Eosinophils Percent Auto 4.1 % (0-4); Hematocrit 46.6 % (42.0-52.0); Hemoglobin 15.2 g/dl (14.0-18.0); Imm Gran Abs Auto 0.07 X10*3/uL (0.00-0.03); Lymphocytes Absolute Auto 1.5 X10*3/uL (1.2-4.9); Lymphocytes Percent Auto 20.3 % (20-40); Mean Corpuscular HGB Conc 32.6 g/dl (31.0-36.0); Mean Corpuscular Hemoglobin 32.5 pg (27.0-33.0); Mean Corpuscular Volume 99.8 fL (80.0-98.0); Mean Platelet Volume 10.8 fL (9.4-12.4); Monocytes Absolute Auto 0.8 X10*3/uL (0.1-1.2); Monocytes Percent Auto 10.8 % (2-11); Neutrophils Absolute Auto 4.6 x10*3/uL (2.0-8.3); Neutrophils Percent Auto 63.3 % (45-73); Platelet Count 179 X10*3/uL (160-400); Red Blood Count 4.67 X10*6/uL (4.60-5.80); White Blood Count 7.3 X10*3/uL (4.8-10.8)
[2023-01-03 10:54] LABS: Appearance Urine Clear; Color Urine Yellow; Glucose Urine UA Negative (Negative); Leukocyte Esterase Urine Small (1+) (Negative); Nitrite Urine Negative (Negative); UMIC TRIGGER UACC YES; Urine Blood Negative (Negative); Urine Ketones Negative (Negative); Urine Protein Negative (Neg-Trace)
[2023-01-03 10:58] LABS: Bacteria Urine None Seen (None Seen); Hyaline Casts Urine 0-2 /LPF (0-2); Squamous Epithelial Cell Urine 0-2 /HPF (0-2); UACC Culture Trigger YES
[2023-01-03 11:10] LABS: Alanine Aminotransferase 19 U/L (0-40); Albumin Level 3.8 g/dL (3.5-5.0); Alkaline Phosphatase 80 U/L (39-117); Anion Gap 10 (12-20); Aspartate Amino Transferase 24 U/L (5-37); Bilirubin Total 0.9 mg/dL (0.0-1.0); Blood Urea Nitrogen 17 mg/dL (9-16); Calcium 9.8 mg/dL (8.4-10.2); Carbon Dioxide 27 mmol/L (22-29); Chloride 108 mmol/L (96-108); Cholesterol 132 mg/dL (<200); Estimated Glomerular Filt Rate 54; Glucose Fasting 99 mg/dL (60-99); HDL Cholesterol 38 mg/dL (>40); LDL Cholesterol Calculated 74 mg/dL (<100); Potassium 4.1 mmol/L (3.3-5.1); Sodium 141 mmol/L (135-145); Total Protein 7.5 g/dL (6.5-8.0); Triglycerides 102 mg/dL (<150)
[2023-01-03 11:19] LABS: PSA,Total (Free>4and<10) 0.53 ng/mL (0.00-4.00)
== END 2023-01-03 08:38 | disposition home or self-care (01) ==
LOC: HO.10HDL 08:37
PROVIDERS: Visit Provider Internal Medicine
DX: D86.9 Sarcoidosis, unspecified (principal); E78.00 Pure hypercholesterolemia, unspecified; R82.90 Unspecified abnormal findings in urine; Z12.5 Encounter for screening for malignant neoplasm of prostate
CPT/HCPCS: 36415; 80053; 80061; 81001; 84153; 85025; 87086

== ENCOUNTER → 2023-01-25 10:45 | Outpatient (REF) | payer MEDICARE, OTHER, SELFPAY ==
--- NOTE | 2023-01-25 10:48 | HM_ITS ---
Conclusion: 1. Patient was monitored for total period of 3 days 2. Baseline was atrial fibrillation/flutter with average heart rate of 80 beats per minute with adequate rate control 3. No significant pauses noted greater than 3 seconds 4. Frequent PVCs noted with total burden of 26% with multiple nonsustained VT episodes noted, fastest at 164 beats per minute 5. Patient complain mainly at symptoms of tiredness which correlated with underlying rhythm. MTDD
--- NOTE | 2023-01-25 10:48 | CA_ITS ---
Transthoracic Echocardiogram Patient (Last, First, Middle): Erasmo Quevedo B Gender: Male Date of : 1945 Age: 77 Procedure Date: 01/25/2023 Procedure Type: Transthoracic Echocardiogram Location: OP Height: 180.34 cm Weight: 101.15 kg BSA: 2.21 m2 Heart Rate: bpm BP: 94 / 58 mmHg Social Research Assistant: TO Referring MD: Joon Hopper MD Airconditioning Plant Operator: Joon Hopper MD Symptoms: I42.9 - Cardiomyopathy, unspecified Study Quality: Fair/Contrast ECG Rhythm: Undetermined Conclusions: - 1. Mild to moderate LV systolic dysfunction 2. Left atrial is mildly dilated 3. Mild aortic stenosis 4. Normal RVSP 5. No pericardial effusion. Findings Procedure Information Contrast agent, definity, is being given per protocol without apparent complications. Left Ventricle Normal left ventricular cavity size. There is normal left ventricular wall thickness. The left ventricular systolic function is mild to moderately decreased. The visually estimated ejection fraction is between 40-45%. Diastolic function is indeterminate on the basis of available data. Right Ventricle The right ventricle was not well visualized. Atria The left atrium is mildly dilated. Interatrial shunt cannot be excluded. The right atrium was not well visualized. Aortic Valve There is mild calcification of the aortic valve. There is mild thickening of the aortic valve. There is mild aortic valve stenosis. The peak aortic velocity is 1.81 m/s. The mean gradient is 7 mmHg. There is no aortic valve regurgitation. Mitral Valve There is mild anterior and posterior mitral leaflet thickening. There is mild mitral valve regurgitation. There is no mitral valve stenosis. Pulmonic Valve The pulmonic valve was not well visualized. Tricuspid Valve Likely normal tricuspid valve structure and function. There is trace tricuspid valve regurgitation. The right ventricular systolic pressure is normal. The right ventricular systolic pressure is 20 mmHg. Normal right atrial pressure. There is no evidence of pulmonary hypertension. Great Vessels The pulmonary artery was not well visualized. Venous The inferior vena cava is normal in size and collapses greater than 50% with inspiration. Pericardium/Pleural There is no evidence of pericardial effusion. Measurements 2D Linear Measurements IVSd: 1.09 0.6-0.9/0.6-1.0 cm LVIDd: 4.56 3.9-5.3/4.2-5.9 cm LVIDd Index: 2.06 2.4-3.2/2.2-3.1 cm/m2 LVIDs: 3.09 2.0-3.6 cm LVPWd: 1.07 0.7-1.1 cm LV Mass: 216.99 67-162/88-224 g LV Mass Index: 98.19 43-95/49-115 g/m2 LVOT Diam: 2.30 3.0+(-)1.3 cm 2D Systolic Function EF 4C: 43.90 >55% EF 2C: 46.10 >55% EF BiP: 44.60 >55% Mitral Valve E'Lateral: 7.51 E'Medial: 5.55 Aortic Valve AoV Pk John: 1.81 AoV Mn John: 1.21 AoV VTI: 0.36 AoV Pk Grad: 13.00 Aov Mn Grad: 7.00 NATHALIE Cont.VTI: 0.87 LVOT LVOT Pk John: 0.46 LVOT Mn John: 0.31 LVOT VTI: 0.08 LVOT Pk Grad: 1.00 LVOT Mn Grad: 0.00 LVOT Diam: 2.30 LVOT Area: 4.15 Diastolic Function E'Medial: 5.55 E' Laterial: 7.51 Right Ventricle TAPSE (mm): 18.00 TVS' John: 10.30 Tricuspid Valve TR Pk John: 2.05 TR Pk Grad: 17.00 RA Press: 3.00 RVSP: 20.00 Great Vessels Aorta Sinus of Valsalva: 3.65 2.0-3.[address] [place]: 2.49 1.7-3.4 cm Ao Asc: 3.50 2.1-3.4 cm Updated in Other Vendor System with Status of Final Joon Hopper MD electronically signed on 01/26/2023 5:06:15 PM with status of Final
== END ==
LOC: HO.CARD 10:45
PROVIDERS: PCP Internal Medicine; Visit Provider Internal Medicine Cardiovascular Disease
DX: I49.3 Ventricular premature depolarization (principal); I42.9 Cardiomyopathy, unspecified
CPT/HCPCS: 93242; 93306; Q9957

== ENCOUNTER → 2023-01-25 10:48 | Outpatient (BNV) | payer MEDICARE, OTHER, SELFPAY | PROVIDERS: PCP Internal Medicine; Visit Provider Internal Medicine Cardiovascular Disease | DX: I48.91 Unspecified atrial fibrillation (principal) | CPT/HCPCS: 93244; 93306 ==

== ENCOUNTER 2023-02-07 11:11 | Outpatient (AMB) | payer MEDICARE, OTHER, SELFPAY ==
[2023-02-07 11:32] VITALS: BP 134/82; PULSE 86; BMI 32.6
--- NOTE | 2023-02-07 11:32 | MHC.OFFVIS ---
Intake Vital Signs 02/07/23 11:32 Height 5 ft 10 in Weight 227 lb 1.218 oz BMI 32.6 BP 134/82 Blood Pressure Location Lt brachial Position Sitting Pulse 86 Intake Visit Reasons: follow-up after echo and holter Intake Note: follow-up after echo and holter c/o blood in urine and fatigue Share[employer] Developer Required: No Hematology Oncology Consultant: Hematology Oncology Consultant Present Accompanied by: Spouse Allergies gadobenic acid [Multihance] Allergy (Severe, Verified 07/26/22 10:00) Rash azithromycin [From ZITHROMAX Z-JOYCE] Allergy (Intermediate, Verified 07/26/22 10:00) HIVES Iodinated Contrast Media [IV CONTRAST] Allergy (Intermediate, Verified 07/26/22 10:00) HIVES Penicillins Allergy (Mild, Verified 07/26/22 10:00) RASH Medication List - Last Reconciled 02/07/23 by Joon Hopper MD albuterol sulfate 90 mcg/actuation 2 inhalations inhalation Q6H PRN 30 days allopurinol 100 mg PO DAILY atorvastatin 80 mg PO DAILY azelastine-fluticasone 137-50 mcg/spray 1 spray intranasal BID bisoprolol fumarate 5 mg PO DAILY brimonidine 0.1% (Alphagan P) drps ophthalmic (eye) losartan 25 mg PO BEDTIME mometasone-formoterol 200-5 mcg/actuation 2 puffs inhalation BID 90 days montelukast 10 mg PO DAILY potassium citrate ER PO rivaroxaban (Xarelto) 20 mg PO DAILY tiotropium bromide 2.5 mcg/actuation (Spiriva Respimat) 2 inhalations inhalation DAILY HPI HPI Comments History of Present Illness Details Erasmo comes for urgent follow-up visit as having increasing symptoms exertional shortness of breath. is concerned about increasing symptoms of shortness of breath with walking short distances. He had a recent echocardiogram which showed undetermined rhythm is suggestive atrial flutter. Holter monitors consistent with atrial fibrillation flutter with controlled ventricular response with frequent PVCs. No clear symptoms of orthopnea, PND, leg edema. Patient is not using CPAP therapy at this point time. Denies any exertional chest pain. Denies any lightheadedness, syncope. After detecting atrial flutter last week he was started on Xarelto 20 mg daily which she has been taking and took this morning and subsequently the patient said he noticed some blood in his urine. This was more than tinged hematuria. Patient does have history of renal stones. [facility] Medical History Pulmonary nodules Chronic restrictive lung disease Chronic renal disease Nonsustained ventricular tachycardia PVCs (premature ventricular contractions) CAD (coronary artery disease) Dyspnea Chronic allergic rhinitis Asthma Sarcoidosis Surgical History Stented coronary artery Family History Other Asthma Social History Patient Tobacco Use Status: Never used Tobacco Review of Systems Const Denies chills, Denies fatigue, Denies fever(s), Denies frequent falls, Denies weakness, Denies weight gain and Denies weight loss ENT Denies dizziness Card Denies chest pain, Denies leg edema, Denies lightheadedness, Denies palpitations, Denies dyspnea, Denies dyspnea on exertion, Denies orthopnea and Denies other (loss of consciousness) Resp Denies cough, Denies dyspnea and Denies dyspnea on exertion GI Denies hematochezia and Denies change in stool character Musc Denies abnormal gait, Denies muscle weakness, Denies numbness, Denies radiating pain into limb and Denies tingling Neuro Denies abnormal gait, Denies dizziness, Denies frequent falls, Denies numbness, Denies tingling and Denies weakness Endo Denies fatigue and Denies palpitations Physical Exam Vital Signs: Last Vital Signs Pulse 86 02/07/23 11:32 BP 134/82 02/07/23 11:32 BMI result Body Mass Index 32.6 Const General: cooperative, comfortable, alert and awake Nutritional Appearance: obese Orientation/consciousness: patient oriented x3 Limitations: ambulation with cane Neck Neck: Yes trachea midline, Yes supple and Yes no JVD Resp Effort & Inspection: normal respiratory effort Auscultation: clear to auscultation bilaterally, no rales and no wheezes Cardio Jugular venous distension: no JVD Palpation: normal PMI Rhythm: abnormal rhythm irregularly irregular Heart sounds: S1 normal heart sound present and S2 normal heart sound present GI Auscultation: normal bowel sounds Skin General skin exam: no rashes or lesions noted Neuro General: patient oriented x3 and no focal motor deficits Extrem General: Yes no clubbing, cyanosis or edema Psych Appearance: grossly normal Office Procedures EKG Details: EKG shows atrial flutter with variable conduction with wide complex QRS complex either PVCs or aberrantly conducted complexes with nonspecific ST T wave changes [id number], Complete Assessment & Plan Assessment & Plan (1) Atrial flutter: Code(s): I48.92 - Unspecified atrial flutter Plan: Patient with newly increased symptoms exertional shortness of without worsening pulmonary function, could be related to new onset atrial flutter with loss of AV synchrony. No overt signs of heart failure. Cause of atrial flutter appears to be multifactorial related to possibly underlying cardiomyopathy possibly related to sarcoidosis, chronic pulmonary disease, and/or untreated sleep apnea. Importance of treating sleep apnea was discussed. Had sent a message to Dr. Patricia about hopefully initiating CPAP therapy. Other complexity in his condition is hematuria related to Xarelto therapy. This appears to be mild at this point time. Advised to increase fluid intakes. If the hematuria clears with increase fluid intake, I have advised to continue Xarelto therapy and reach out to urology. If his hematuria persist despite increase hydration current therapy will need to re-evaluate Xarelto therapy and have to stop it. If the blood tennis cannot be continued safely, I would not pursue with synchronized cardioversion at this point in time. We also discussed about possibly doing MEGHANA guided cardioversion although I do not think this is necessary. His main issues going to be bleeding related to Xarelto therapy and if he cannot continue Xarelto therapy this would become an issue and without to consider him for Watchman device. All this was discussed with patient and patient's and they showed understanding. However I do things maintaining rhythm will improve his symptoms related to loss of AV synchrony and may even require antiarrhythmic drug therapy. (2) Cardiomyopathy: Code(s): I42.9 - Cardiomyopathy, unspecified Plan: Cardiomyopathy with slight worsening LV systolic function question ischemic question related to sarcoidosis. Will suggest a vasodilating myocardial perfusion imaging in near future. Continue neurohormonal modulation with losartan and bisoprolol. Avoidance of cardiotoxic agent was discussed. Increasing symptoms possibly related to atrial flutter. At this point time advised management as above. Will also perform a cardiac MRI to evaluate for any scar related cardiac sarcoidosis and may require further evaluation with cardiac PET metabolic imaging to evaluate for active inflammation. (3) PVCs (premature ventricular contractions): Code(s): I49.3 - Ventricular premature depolarization Plan: PVCs workup as above. (4) CAD (coronary artery disease): Code(s): I25.10 - Atherosclerotic heart disease of upper [place] coronary artery without angina pectoris Plan: CAD with prior stenting of the LAD. Having increasing symptoms of shortness of breath and worsening LV ejection fraction. Rule out myocardial ischemia. Currently on full oral anticoagulation with Xarelto and avoid aspirin therapy especially given his hematuria. Continue high-intensity statin therapy. Continue aggressive blood pressure control. Will follow up in the clinic in 6 weeks time after cardioversion. Greater than 40 minutes was spent in managing his complex care. Orders: Orders CA lexiscan stress w nicolás Today I42.9 - Cardiomyopathy, unspecified MR cardiac morph fnct w con 1 Week I42.9 - Cardiomyopathy, unspecified Coding Level of Care Code Est Pt Level 5 (82617) Diagnoses Atrial flutter I48.92 Cardiomyopathy I42.9 PVCs (premature ventricular contractions) I49.3 CAD (coronary artery disease) I25.10 CPT Codes EKG - CPT: 07667-[id number], Complete ([id number])
== END 2023-02-07 12:17 | disposition home or self-care (01) ==
PROVIDERS: PCP Internal Medicine; Visit Provider Internal Medicine Cardiovascular Disease
DX: I48.92 Unspecified atrial flutter (principal); I42.9 Cardiomyopathy, unspecified; I49.3 Ventricular premature depolarization; I25.10 Atherosclerotic heart disease of native coronary artery without angina pectoris
CPT/HCPCS: 93010; 99215

== ENCOUNTER → 2023-02-07 11:11 | Outpatient (BNVA) | payer MEDICARE, OTHER, SELFPAY | PROVIDERS: PCP Internal Medicine; Visit Provider Internal Medicine Cardiovascular Disease | DX: I48.92 Unspecified atrial flutter (principal); I42.9 Cardiomyopathy, unspecified; I49.3 Ventricular premature depolarization; I25.10 Atherosclerotic heart disease of native coronary artery without angina pectoris | CPT/HCPCS: 93005; 99212 ==

== ENCOUNTER 2023-03-21 09:18 | Outpatient (AMB) | payer MEDICARE, OTHER, SELFPAY ==
--- NOTE | 2023-03-21 09:27 | A.OFFVIS_ITS ---
Intake Vital Signs 03/21/23 09:28 Height 5 ft 10 in Weight 227 lb 1.218 oz BMI 32.6 Pulse 88 Pulse Source Pulse Oximeter Pulse Oximetry (%) 96 Oxygen Delivery Method Room Air Intake Visit Reasons: Obstructive sleep apnea Allergies gadobenic acid [Multihance] Allergy (Severe, Verified 03/21/23 09:29) Rash azithromycin [From ZITHROMAX Z-JOYCE] Allergy (Intermediate, Verified 03/21/23 09:29) HIVES Iodinated Contrast Media [IV CONTRAST] Allergy (Intermediate, Verified 03/21/23 09:29) HIVES Penicillins Allergy (Mild, Verified 03/21/23 09:29) RASH HPI HPI Comments History of Present Illness Details The patient is a 77-year-old gentleman with known sarcoidosis in addition to asthma COPD overlap syndrome. Overall he is doing very well. He continues to be a maximum respiratory therapy. The response better with the nebulized therapy. He had a good summer without any exacerbations of the obstructive airway disease. We talked about ways to deescalate his respiratory therapy. He still having some dyspnea on exertion, mild in severity usually when he is going up hills. Usually gets better with rest. His major issue right now is weight gain in addition to difficulty sleeping. He does not have any significant snoring. However, we did talk about considering a sleep study. His Fanshawe score is elevated 12/20. He says that he has fragmented sleep and will see if we can improve that with a sleep aid. Otherwise we can consider a sleep study in the future. 03/16/2021 the patient is here for a pulmonary follow-up visit. Overall he is doing about the same. Still having dyspnea on exertion. [id number] severity. He does try to go walking and exercise. She continues with respiratory therapy. He did not have to start the budesonide. The patient did undergo pulmonary function studies today. We did review them. It appears that he does have interval worsening of both the FVC and the FEV1. This goes along with a restrictive ventilatory defect. He does have mild restrictive lung disease. Patient does have some underlying parenchymal lung conditions on his CT scan although they have not changed. The patient has had issues with weight gain. We did talk about the importance of weight loss. In addition to that he will have a chest x-ray done when able in order to assess for any changes based on the abnormal PFTs. 09/08/2021 the patient is here for a pulmonary follow-up visit. From a respiratory status he is doing very well. He continues uses respiratory inhale rs with good effect. He has not required any prednisone. He has not had any recent exacerbations. However, he has been having significant daytime drowsiness. He has been sleeping at nighttime and also for several hours during the daytime. His Fanshawe score is elevated 12/24. His is concerned. She denies any significant apneic episodes although he does snore. The patient has never had a sleep study he does have increased cardiovascular risk factors therefore a home sleep study is warranted. Were also request additional blood work to further address the issues with the change in mentation. 10/04/2021 the patient has a telehealth visit today. Still having significant daytime drowsiness. His Fanshawe score still 11/24. The patient did have a home sleep study that we reviewed together. It appears that he has moderate obstructive sleep apnea with significant hypoxia and some evidence of tachyarrhythmia. Therefore, the patient does have significant cardiovascular risk factors and needs to start PAP therapy as possible. from a respiratory status seems to be stable on the current respiratory regimen. Therefore will continue that at this time. 07/26/2022 the patient is here for pulmonary follow-up visit. Overall he is doing well from a respiratory status. He continues uses rest for medications as prescribed. He has not required any prednisone or any rescue medication at this time. He doing well from a respiratory status. He has been sleeping off and on. Slightly fragmented sometimes he wakes up and reads and sometimes he does other things. Therefore, he tends to wake up later in the day usually around 11:00 o'clock to noontime. We talked about better sleep quality by providing sleep aid. I did send trazodone to the pharmacy for him to try to use 1 hour before sleep in order to see if this would help him with better sleep hygiene. The patient was initially going to have an overnight oximetry to see if he needed oxygen but will hold off at this time as it is more cumbersome. The patient has been trying to sleep on his side to try to minimize the snoring and the apneic episodes. We did review his last CT scan of the chest that was done back in 2020 with multiple pulmonary nodules in airspace disease. The patient understands this is a sarcoidosis. Does not mean that that is active but the only way of knowing for sure is to repeat imaging studies. Clinically the patient is doing well he now so therefore will hold off on a CT scan until next year. Unless, the patient has any worsening symptoms he is to call the office in then we may want to reimage his chest at an earlier time in that case. 03/21/2023 the patient is here for a pulmonary follow-up visit. The patient is having issues with his atrial fibrillation. He is monitored closely by Cardiology. He was placed on anticoagulation but had to stop it because of hematuria. Therefore now he is off all anticoagulation. Barker Peeler concerned because of his untreated sleep apnea resulting worsening cardiac arrhythmias. The patient did have a sleep study back in demonstrating moderate sleep apnea. He also has significant hypoxia. We did review the results together. The patient did have a hard time with CPAP. He is wondering about other alternatives. The patient continues to have daytime drowsiness. His Fanshawe score is elevated 11/24. He has been sleeping about 12 hours a day and still feels tired. He also complains of shortness breath [id number] with activity. He does have some degree of myopathy. In view of the cardiac arrh ythmia in the significant sleep apnea the patient needs to have an in-lab sleep study to further address the question of the sleep apnea and hopefully to get it titrated in the hospital if he does qualify for split study. The patient now has atrial fibrillation off anticoagulation I am concerned for the possibility of stroke and therefore I would like to have him have this study as soon as possible. I will request an urgent in-lab sleep study at this time. From a respiratory status continues use his respiratory inhalers. Has not had to use his rescue inhaler at this time. [facility] Medical History Pulmonary nodules Chronic restrictive lung disease Chronic renal disease Nonsustained ventricular tachycardia PVCs (premature ventricular contractions) CAD (coronary artery disease) Dyspnea Chronic allergic rhinitis Asthma Sarcoidosis Surgical History Stented coronary artery Family History Other Asthma Social History Patient Tobacco Use Status: Never used Tobacco Review of Systems Const Denies chills, Reports daytime sleepiness, Reports difficulty sleeping, Reports fatigue, Denies fever(s), Denies frequent falls, Denies weakness, Denies weight gain and Denies weight loss Eyes Denies change in vision ENT Denies change in voice and Denies dizziness Card Denies chest pain, Denies leg edema, Denies lightheadedness, Denies palpitations, Denies dyspnea, Reports dyspnea on exertion, Denies orthopnea and Denies other (loss of consciousness) Resp Reports cough, Denies dyspnea and Reports dyspnea on exertion GI Denies hematochezia and Denies change in stool character Musc Denies abnormal gait, Denies muscle weakness, Denies numbness, Denies radiating pain into limb and Denies tingling Neuro Denies abnormal gait, Denies dizziness, Denies frequent falls, Denies numbness, Denies tingling and Denies weakness Endo Reports fatigue and Denies palpitations Physical Exam Vital Signs: Last Vital Signs Pulse 88 03/21/23 09:28 Pulse Ox 96 03/21/23 09:28 Oxygen Delivery Method Room Air 03/21/23 09:28 BMI result Body Mass Index 32.6 Const General: cooperative, comfortable, alert and awake Orientation/consciousness: patient oriented x3 HEENT Head: Yes normal to inspection Eyes Conjunctivae: conjunctival abnormal bilateral pallor Neck Neck: Yes trachea midline, Yes supple and Yes no JVD Chest Chest palpation & inspection: normal inspection of the chest Resp Effort & Inspection: normal respiratory effort Auscultation: no rales, no wheezes and diminished lung sounds Cardio Heart sounds: S1 normal heart sound present and S2 normal heart sound present GI Auscultation: normal bowel sounds Skin General skin exam: no rashes or lesions noted Neuro General: patient oriented x3 and no focal motor deficits Extrem General: Yes no clubbing, cyanosis or edema Psych Appearance: grossly normal Assessment & Plan Assessment & Plan (1) MARE (obstructive sleep apnea): Code(s): G47.33 - Obstructive sleep apnea (adult) (pediatric) (2) Chronic restrictive lung disease: Code(s): J98.4 - Other disorders of lung (3) Asthma: Code(s): J45.909 - Unspecified asthma, uncomplicated Qualifiers: Asthma severity: moderate Asthma persistence: persistent Asthma complication type: uncomplicated Qualified Code(s): J45.40 - Moderate persistent asthma, uncomplicated (4) Chronic allergic rhinitis: Code(s): J30.9 - Allergic rhinitis, unspecified (5) Sarcoidosis: Code(s): D86.9 - Sarcoidosis, unspecified (6) Pulmonary nodules: Code(s): R91.8 - Other nonspecific abnormal finding of lung field (7) Atrial flutter: Code(s): I48.92 - Unspecified atrial flutter Qualifiers: Atrial flutter type: unspecified Qualified Code(s): I48.92 - Unspecified atrial flutter Plan Needs an in-lab PSG, split study Continue Dulera twice a day Continue Spiriva daily Continue Singulair daily Weight management Follow-up 6-8 weeks Orders: Orders RT PSG in-lab sleep study Today G47.33 - Obstructive sleep apnea (adult) (pediatric), I42.9 - Cardiomyopathy, unspecified, I48.92 - Unspecified atrial flutter, J44.9 - Chronic obstructive pulmonary disease, unspecified, R91.8 - Oth er nonspecific abnormal finding of lung field Coding Level of Care Code Est Pt Level 4 (98869) Diagnoses MARE (obstructive sleep apnea) G47.33 Chronic restrictive lung disease J98.4 Moderate persistent asthma without complication J45.40 Asthma severity: moderate Asthma persistence: persistent Asthma complication type: uncomplicated Chronic allergic rhinitis J30.9 Sarcoidosis D86.9 Pulmonary nodules R91.8 Atrial flutter, unspecified type I48.92 Atrial flutter type: unspecified Time Spent (min) 17
[2023-03-21 09:28] VITALS: PULSE 88; O2SAT 96; BMI 32.6
== END 2023-03-21 10:04 | disposition home or self-care (01) ==
PROVIDERS: PCP Internal Medicine; Visit Provider Hospitalist
DX: G47.33 Obstructive sleep apnea (adult) (pediatric) (principal); J98.4 Other disorders of lung; J45.40 Moderate persistent asthma, uncomplicated; J30.9 Allergic rhinitis, unspecified; D86.9 Sarcoidosis, unspecified; R91.8 Other nonspecific abnormal finding of lung field; I48.92 Unspecified atrial flutter
CPT/HCPCS: 99214

== ENCOUNTER → 2023-03-21 09:18 | Outpatient (BNVA) | payer MEDICARE, OTHER, SELFPAY | PROVIDERS: PCP Internal Medicine; Visit Provider Hospitalist | DX: G47.33 Obstructive sleep apnea (adult) (pediatric) (principal); J98.4 Other disorders of lung; J45.40 Moderate persistent asthma, uncomplicated; J30.9 Allergic rhinitis, unspecified; D86.9 Sarcoidosis, unspecified; R91.8 Other nonspecific abnormal finding of lung field; I48.92 Unspecified atrial flutter; Z79.899 Other long term (current) drug therapy | CPT/HCPCS: 99212 ==

== ENCOUNTER → 2023-03-24 07:51 | Outpatient (REF) | payer MEDICARE, OTHER, SELFPAY ==
--- NOTE | ~2023-03-24 | NM_ITS ---
Lexiscan Myocardial perfusion study Indication: Shortness of breath, assess for coronary disease and ischemia Technique: The patient was brought in for a Lexiscan perfusion study on 03/24/2023 and was injected 0.4 mg of Lexiscan intravenously. Within a minute of this injection 35 mCi of sestamibi was given intravenously. Images were obtained using the SPECT gamma camera interlaced with the gating device. Images were obtained in supine position. Resting perfusion study was performed on 03/27/2023. Patient was administered 35 mCi of sestamibi intravenously at rest. Images were then obtained in supine position. Images were processed with the software and compared side to side in short axis, horizontal long axis and vertical long axis views. Total DLP 168mGy-cm. Findings: Raw acquisition reviewed. The stress perfusion study showed mildly diminished tracer uptake in the distal part of lateral wall. With CT attenuation correction, there is significant improvement suggestive of soft tissue attenuation artifact. The gated study shows diminished LV systolic function with calculated LVEF of 42%. LV cavity is normal in size. The gated study shows globally reduced wall thickening and contraction of segments. Resting study shows mildly reduced tracer uptake in the distal part of inferolateral wall. There is improvement with CT attenuation correction suggestive of possibly diaphragmatic attenuation artifact. Gating at rest reveals normal wall motion with ejection fraction at 45%. The findings are consistent with fixed distal lateral defect suspected to be from attenuation artifact. NM/NM nicolás perf SPECT rest & str Impression: 1. Myocardial perfusion imaging study shows no clear evidence of any ischemia or infarction. Probably normal myocardial perfusion. 2. Gated LVEF is 42% during stress and 45% during rest. Correlate with echocardiogram. 3. Transient ischemic dilatation not present. EKG component of the test reported separately.
--- NOTE | 2023-03-24 07:53 | CA_ITS ---
Acquisition Time: 2023-03-24 07:55:57 Total Exercise Time: 00:02:00 Test Indications: Dyspnea Medications: ALBUTEROL ALLOPURINOL ATORVASTATIN BISOPROLOL LOSARTAN SINGULAIR XARELTO Protocol: LEXISCAN Max HR: 098 BPM 68% of Pred: 143 BPM Max BP: 108/064 mmHG Max Work Load: 1.0 METS Pharmacological stress test with Lexiscan injection, without anginal symptoms, isolated PVCs, ventricular bigeminy, with normotensive response to injection, with nondiagnoistic EKGs. Aminophylline 75mg IVP given to reverse Lexiscan. Nuclear images pending. Test reviewed with Dr. Brown. Referred By: Joon Hopper Overread By: Kristy Valencia
== END ==
LOC: HO.CARD 07:51
PROVIDERS: PCP Internal Medicine; Visit Provider Internal Medicine Cardiovascular Disease
DX: I42.9 Cardiomyopathy, unspecified (principal)
CPT/HCPCS: 78452; 93017; A9500; J0280; J2785

== ENCOUNTER → 2023-03-24 07:53 | Outpatient (BNV) | payer MEDICARE, OTHER, SELFPAY | PROVIDERS: PCP Internal Medicine; Visit Provider Nurse Practitioner | DX: I42.9 Cardiomyopathy, unspecified (principal); R06.02 Shortness of breath | CPT/HCPCS: 78452; 93016; 93018 ==

== ENCOUNTER → 2023-03-28 19:30 | Outpatient (REF) | payer MEDICARE, OTHER, SELFPAY | LOC: HO.SL 19:30 | PROVIDERS: PCP Internal Medicine; Visit Provider Hospitalist | DX: G47.33 Obstructive sleep apnea (adult) (pediatric) (principal); J44.9 Chronic obstructive pulmonary disease, unspecified; R91.8 Other nonspecific abnormal finding of lung field; I48.92 Unspecified atrial flutter; I42.9 Cardiomyopathy, unspecified | CPT/HCPCS: 95810 ==

== ENCOUNTER → 2023-03-28 23:17 | Outpatient (BNV) | payer MEDICARE, OTHER, SELFPAY | PROVIDERS: PCP Internal Medicine; Visit Provider Internal Medicine | DX: R06.83 Snoring (principal) | CPT/HCPCS: 95810 ==

== ENCOUNTER 2023-05-04 09:46 | Outpatient (AMB) | payer MEDICARE, OTHER, SELFPAY ==
--- NOTE | 2023-05-04 09:58 | A.OFFVIS_ITS ---
Intake Vital Signs 05/04/23 10:01 Height 5 ft 10 in Weight 227 lb 1.218 oz BMI 32.6 Pulse 90 Pulse Source Pulse Oximeter Pulse Oximetry (%) 96 Oxygen Delivery Method Room Air Intake Visit Reasons: Obstructive sleep apnea Process Mechanic Required: No Allergies gadobenic acid [Multihance] Allergy (Severe, Verified 05/04/23 10:02) Rash azithromycin [From ZITHROMAX Z-JOYCE] Allergy (Intermediate, Verified 05/04/23 10:02) HIVES Iodinated Contrast Media [IV CONTRAST] Allergy (Intermediate, Verified 05/04/23 10:02) HIVES Penicillins Allergy (Mild, Verified 05/04/23 10:02) RASH HPI HPI Comments History of Present Illness Details The patient is a 78-year-old gentleman with known sarcoidosis in addition to asthma COPD overlap syndrome. Overall he is doing very well. He continues to be a maximum respiratory therapy. The response better with the nebulized therapy. He had a good summer without any exacerbations of the obstructive airway disease. We talked about ways to deescalate his respiratory therapy. He still having some dyspnea on exertion, mild in severity usually when he is going up hills. Usually gets better with rest. His major issue right now is weight gain in addition to difficulty sleeping. He does not have any significant snoring. However, we did talk about considering a sleep study. His [place] score is elevated 10/24. He says that he has fragmented sleep and will see if we can improve that with a sleep aid. Otherwise we can consider a sleep study in the future. 03/21/2023 the patient is here for a pulmonary follow-up visit. The patient is having issues with his atrial fibrillation. He is monitored closely by Cardiology. He was placed on anticoagulation but had to stop it because of hematuria. Therefore now he is off all anticoagulation. Technology Infusion Specialist concerned because of his untreated sleep apnea resulting worsening cardiac arrhythmias. T he patient did have a sleep study back in demonstrating moderate sleep apnea. He also has significant hypoxia. We did review the results together. The patient did have a hard time with CPAP. He is wondering about other alternatives. The patient continues to have daytime drowsiness. His [place] score is elevated 11/24. He has been sleeping about 12 hours a day and still feels tired. He also complains of shortness breath [id number] with activity. He does have some degree of myopathy. In view of the cardiac arrhythmia in the significant sleep apnea the patient needs to have an in-lab sleep study to further address the question of the sleep apnea and hopefully to get it titrated in the hospital if he does qualify for split study. The patient now has atrial fibrillation off anticoagulation I am concerned for the possibility of stroke and therefore I would like to have him have this study as soon as possible. I will request an urgent in-lab sleep study at this time. From a respiratory status continues use his respiratory inhalers. Has not had to use his rescue inhaler at this time. 05/04/2023 the patient is here for pulmona ry follow-up visit. Been doing about the same. Still very drowsy sleeps around 12 hours a day. His [place] score is elevated 16/24. He did undergo an in-lab sleep study. It was not significant but likely nondiagnostic since he had a hard time sleeping. The patient does have a history asthma COPD overlap syndrome. Will go ahead and check his overnight oximetry. He continues to follow closely with Cardiology regarding his cardiac arrhythmia. In the meantime from the sarcoid standpoint the patient has had pulmonary nodules and has scheduled CT scan for May 2023. If the CT scans abnormal let him know. Otherwise will follow-up in the next visit. From a respiratory status seems responding well to the current respiratory regimen so therefore will not make any changes at this time. [facility] Medical History Pulmonary nodules Chronic restrictive lung disease Chronic renal disease Nonsustained ventricular tachycardia PVCs (premature ventricular contractions) CAD (coronary artery disease) Dyspnea Chronic allergic rhinitis Asthma Sarcoidosis Surgical History Stented coronary artery Family History Other Asthma Social History Patient Tobacco Use Status: Never used Tobacco Review of Systems Const Denies chills, Reports daytime sleepiness, Reports difficulty sleeping, Reports fatigue, Denies fever(s), Denies frequent falls, Denies weakness, Denies weight gain and Denies weight loss Eyes Denies change in vision ENT Denies change in voice and Denies dizziness Card Denies chest pain, Denies leg edema, Denies lightheadedness, Denies palpitations, Denies dyspnea, Reports dyspnea on exertion, Denies orthopnea and Denies other (loss of consciousness) Resp Reports cough, Denies dyspnea and Reports dyspnea on exertion GI Denies hematochezia and Denies change in stool character Musc Denies abnormal gait, Denies muscle weakness, Denies numbness, Denies radiating pain into limb and Denies tingling Neuro Denies abnormal gait, Denies dizziness, Denies frequent falls, Denies numbness, Denies tingling and Denies weakness Endo Reports fatigue and Denies palpitations Physical Exam Vital Signs: Last Vital Signs Pulse 90 05/04/23 10:01 Pulse Ox 96 05/04/23 10:01 Oxygen Delivery Method Room Air 05/04/23 10:01 BMI result Body Mass Index 32.6 Const General: cooperative, comfortable, alert and awake Orientation/consciousness: patient oriented x3 HEENT Head: Yes normal to inspection Eyes Conjunctivae: conjunctival abnormal bilateral pallor Neck Neck: Yes trachea midline, Yes supple and Yes no JVD Chest Chest palpation & inspection: normal inspection of the chest Resp Effort & Inspection: normal respiratory effort Auscultation: no rales, no wheezes and diminished lung sounds Cardio Heart sounds: S1 normal heart sound present and S2 normal heart sound present GI Auscultation: normal bowel sounds Skin General skin exam: no rashes or lesions noted Neuro General: patient oriented x3 and no focal motor deficits Extrem General: Yes no clubbing, cyanosis or edema Psych Appearance: grossly normal Assessment & Plan Assessment & Plan (1) Asthma-COPD overlap syndrome: Code(s): J44.9 - Chronic obstructive pulmonary disease, unspecified (2) Chronic restrictive lung disease: Code(s): J98.4 - Other disorders of lung (3) Chronic allergic rhinitis: Code(s): J30.9 - Allergic rhinitis, unspecified (4) Sarcoidosis: Code(s): D86.9 - Sarcoidosis, unspecified (5) Pulmonary nodules: Code(s): R91.8 - Other nonspecific abnormal finding of lung field (6) Atrial flutter: Code(s): I48.92 - Unspecified atrial flutter Qualifiers: Atrial flutter type: unspecified Qualified Code(s): I48.92 - Unspecified atrial flutter (7) Asthma: Code(s): J45.909 - Unspecified asthma, uncomplicated Qualifiers: Asthma complication type: uncomplicated Asthma persistence: persistent Asthma severity: moderate Qualified Code(s): J45.40 - Moderate persistent asthma, uncomplicated Plan Overnight oximetry on RA Continue Dulera twice a day Continue Spiriva daily Continue Singulair daily Weight management CT chest 05/2023 Follow-up 6 months Coding Level of Care Code Est Pt Level 4 (20782) Diagnoses Asthma-COPD overlap syndrome J44.9 Chronic restrictive lung disease J98.4 Chronic allergic rhinitis J30.9 Sarcoidosis D86.9 Pulmonary nodules R91.8 Atrial flutter, unspecified type I48.92 Atrial flutter type: unspecified Moderate persistent asthma without complication J45.40 Asthma complication type: uncomplicated Asthma persistence: persistent Asthma severity: moderate Time Spent (min) 17
[2023-05-04 10:01] VITALS: PULSE 90; O2SAT 96; BMI 32.6
== END 2023-05-04 10:43 | disposition home or self-care (01) ==
PROVIDERS: PCP Internal Medicine; Visit Provider Hospitalist
DX: J44.9 Chronic obstructive pulmonary disease, unspecified (principal); J98.4 Other disorders of lung; J30.9 Allergic rhinitis, unspecified; D86.9 Sarcoidosis, unspecified; R91.8 Other nonspecific abnormal finding of lung field; I48.92 Unspecified atrial flutter; J45.40 Moderate persistent asthma, uncomplicated
CPT/HCPCS: 99214

== ENCOUNTER → 2023-05-04 09:46 | Outpatient (BNVA) | payer MEDICARE, OTHER, SELFPAY | PROVIDERS: PCP Internal Medicine; Visit Provider Hospitalist | DX: I48.92 Unspecified atrial flutter (principal); I42.9 Cardiomyopathy, unspecified; I25.10 Atherosclerotic heart disease of native coronary artery without angina pectoris; I49.3 Ventricular premature depolarization; J44.9 Chronic obstructive pulmonary disease, unspecified; J98.4 Other disorders of lung; J30.9 Allergic rhinitis, unspecified; J45.40 Moderate persistent asthma, uncomplicated; D86.9 Sarcoidosis, unspecified; R91.8 Other nonspecific abnormal finding of lung field | CPT/HCPCS: 93005; 99212 ==

== ENCOUNTER 2023-05-04 11:13 | Outpatient (AMB) | payer MEDICARE, OTHER, SELFPAY ==
[2023-05-04 11:28] VITALS: BP 118/64; PULSE 84; BMI 31.9
--- NOTE | 2023-05-04 11:28 | MHC.OFFVIS ---
Intake Vital Signs 05/04/23 11:28 Height 5 ft 10 in Weight 222 lb BMI 31.9 BP 118/64 Blood Pressure Location Lt brachial Position Sitting Pulse 84 Intake Visit Reasons: 3 month follow-up after mri Intake Note: follow up to discuss MRI and Stress test with EKG Allergies gadobenic acid [Multihance] Allergy (Severe, Verified 05/04/23 10:02) Rash azithromycin [From ZITHROMAX Z-JOYCE] Allergy (Intermediate, Verified 05/04/23 10:02) HIVES Iodinated Contrast Media [IV CONTRAST] Allergy (Intermediate, Verified 05/04/23 10:02) HIVES Penicillins Allergy (Mild, Verified 05/04/23 10:02) RASH Medication List - Last Reconciled 05/04/23 by Joon Hopper MD albuterol sulfate 90 mcg/actuation 2 inhalations inhalation Q6H PRN 30 days allopurinol 100 mg PO DAILY atorvastatin 80 mg PO DAILY azelastine-fluticasone 137-50 mcg/spray 1 spray intranasal BID bisoprolol fumarate 5 mg PO DAILY brimonidine 0.1% (Alphagan P) drps ophthalmic (eye) losartan 25 mg PO BEDTIME mometasone-formoterol 200-5 mcg/actuation 2 puffs inhalation BID 90 days montelukast 10 mg PO DAILY potassium citrate ER PO tiotropium bromide 2.5 mcg/actuation (Spiriva Respimat) 2 inhalations inhalation DAILY HPI HPI Comments History of Present Illness Details Erasmo comes for follow-up, accompanied by his . He has not had any recurrent hematuria. He has currently not on any oral anticoagulation. Has seen Neurology and there has been no other obvious source of bleeding except for BPH. He is currently on medications for the same. As per the continues to be very limited in amount of activity with exertional shortness of breath just walking room to room. No orthopnea, PND, leg edema. Myocardial perfusion imaging was within normal limits with no evidence of ischemia. Cardiac MRI was suboptimal due to arrhythmias although showed moderate LV systolic dysfunction and aortic stenosis there was no clear gadolinium enhancement that would suggest sarcoidosis. He continues to have frequent PVCs. Not using his CPAP. [facility], [facility] Medical History Pulmonary nodules Chronic restrictive lung disease Chronic renal disease Nonsustained ventricular tachycardia PVCs (premature ventricular contractions) CAD (coronary artery disease) Dyspnea Chronic allergic rhinitis Asthma Sarcoidosis Surgical History Stented coronary artery Family History Other Asthma Social History Patient Tobacco Use Status: Never used Tobacco Review of Systems Const Denies weakness ENT Denies dizziness Card Denies chest pain, Denies chest pain with activity, Denies syncope, Denies rapid heart rate, Denies pedal edema, Denies edema, Denies leg edema, Denies lightheadedness, Denies palpitations, Denies dyspnea, Denies dyspnea on exertion and Denies orthopnea Resp Denies cough, Denies dyspnea and Denies dyspnea on exertion GI Denies hematochezia and Denies change in stool character Musc Denies abnormal gait, Denies muscle cramps, Denies muscle weakness, Denies numbness, Denies radiating pain into limb and Denies tingling Neuro Denies abnormal gait, Denies dizziness, Denies syncope, Denies numbness, Denies tingling and Denies weakness Endo Denies palpitations Physical Exam Vital Signs: Last Vital Signs Pulse 84 05/04/23 11:28 BP 118/64 05/04/23 11:28 BMI result Body Mass Index 31.9 Const General: cooperative, comfortable, alert and awake Nutritional Appearance: obese Orientation/consciousness: patient oriented x3 Limitations: ambulation with cane Neck Neck: Yes trachea midline, Yes supple and Yes no JVD Resp Effort & Inspection: normal respiratory effort Auscultation: clear to auscultation bilaterally, no rales and no wheezes Cardio Jugular venous distension: no JVD Palpation: normal PMI Rhythm: abnormal rhythm irregularly irregular Heart sounds: S1 normal heart sound present and S2 normal heart sound present GI Auscultation: normal bowel sounds Skin General skin exam: no rashes or lesions noted Neuro General: patient oriented x3 and no focal motor deficits Extrem General: Yes no clubbing, cyanosis or edema Psych Appearance: grossly normal Office Procedures EKG Details: EKG shows atrial flutter with controlled ventricular response with frequent PVCs/aberrantly conducted complexes [id number], Complete Assessment & Plan Assessment & Plan (1) Atrial flutter: Code(s): I48.92 - Unspecified atrial flutter Qualifiers: Atrial flutter type: unspecified Qualified Code(s): I48.92 - Unspecified atrial flutter Plan: Recent onset persistent atrial flutter with significantly worsening symptoms of exertional shortness of breath with minimal functionality. No overt signs of congestive heart failure. Management of atrial flutter was discussed. It is reasonable to pursue rhythm control approach given his significant symptoms as well as LV systolic dysfunction. This was discussed with him and his . He has currently not having any bleeding issues. Will therefore take the liberty to start him on oral anticoagulant therapy but switch her to Eliquis 5 mg b.i.d.. Continue current rate control strategies. Once he is 3 and half weeks with oral anticoagulation has no bleeding complication will start him on antiarrhythmic drug therapy with Multaq to help us with achieving sinus rhythm and maintaining sinus rhythm in the long run. Management was discussed in details. If he develops bleeding issues, will need referral for Watchman device. (2) Cardiomyopathy: Code(s): I42.9 - Cardiomyopathy, unspecified Plan: Cardiomyopathy with [id number] LV systolic dysfunction. There is no clear evidence of ischemia or infiltrative disorder based on the cardiac MRI and recent myocardial perfusion imaging. Could be related to atrial flutter or cardiomyopathy process. Will pursue rhythm control approach as above and see if this will help with improving his LV systolic function. Meanwhile continue current neurohormonal modulation with losartan as well as bisoprolol therapy. Signs and symptoms of heart failure were discussed. (3) CAD (coronary artery disease): Code(s): I25.10 - Atherosclerotic heart disease of [place] coronary artery without angina pectoris Plan: CAD with remote stenting of the LAD. No recurrent evidence of ischemia. Currently on full oral anticoagulation and will therefore avoid aspirin therapy. Continue high-intensity statin therapy. Blood pressure is currently well optimized. Target goal LDL less than 60 mg/dL. (4) PVCs (premature ventricular contractions): Code(s): I49.3 - Ventricular premature depolarization Plan: Frequent PVCs which in the past have been polymorphic. There has been clearly no evidence of infiltrative disorder from prior workup. Although this is not completely ruled out. Will continue to follow clinically. Pursue rhythm control approach as above. Follow up with Holter monitor. No change in therapy. Will follow up in the clinic in 2 months time, sooner p.r.n.. Thank you for allowing me to partake in his care Orders: Orders Cardioversion 4 Weeks I48.92 - Unspecified atrial flutter Medications: New dronedarone (Multaq) must administer with a meal/food 400 mg PO Q12H 60 tabs 5RF I48.92 - Unspecified atrial flutter apixaban (Eliquis) 5 mg PO BID 60 tabs 5RF I48.92 - Unspecified atrial flutter Discontinued rivaroxaban (Xarelto) must administer with evening meal Discontinued Reason: Patient no longer taking 20 mg PO DAILY 30 tabs 0RF Coding Level of Care Code Est Pt Level 4 (87746) Diagnoses Atrial flutter, unspecified type I48.92 Atrial flutter type: unspecified Cardiomyopathy I42.9 CAD (coronary artery disease) I25.10 PVCs (premature ventricular contractions) I49.3 CPT Codes EKG - CPT: 66260-[id number], Complete ([id number])
== END 2023-05-04 12:34 | disposition home or self-care (01) ==
PROVIDERS: PCP Internal Medicine; Visit Provider Internal Medicine Cardiovascular Disease
DX: I48.92 Unspecified atrial flutter (principal); I42.9 Cardiomyopathy, unspecified; I25.10 Atherosclerotic heart disease of native coronary artery without angina pectoris; I49.3 Ventricular premature depolarization
CPT/HCPCS: 93010; 99214

== ENCOUNTER 2023-05-31 11:18 | Day surgery (SDC) | payer MEDICARE, OTHER, SELFPAY ==
--- NOTE | 2023-05-29 13:32 | HO.ANESPROP2 ---
Documented by User: Amanda Lan NP 05/29/23 13:33 HPI - Anesthesia Eval Consult details Narrative: 78yo M for Cardioversion Eliquis for afib PMFSH Active Problems Active Problems: All Active Problems (Updated 03/21/23 @ 12:56 by Sebastian Patricia MD) Atrial flutter (Acute) Pulmonary nodules (Acute) Asthma-COPD overlap syndrome (Acute) MARE (obstructive sleep apnea) (Acute) Cardiomyopathy (Acute) Chronic restrictive lung disease (Acute) Chronic renal disease (Acute) SOB (shortness of breath) on exertion (Acute) PVCs (premature ventricular contractions) (Acute) CAD (coronary artery disease) (Acute) Dyspnea (Acute) Chronic allergic rhinitis (Acute) Asthma (Acute) Sarcoidosis (Acute) Past Medical History Medical History Pulmonary nodules Chronic restrictive lung disease Chronic renal disease Nonsustained ventricular tachycardia PVCs (premature ventricular contractions) CAD (coronary artery disease) Dyspnea Chronic allergic rhinitis Asthma Sarcoidosis Family History Family History Other Asthma Surgical History Surgical History Stented coronary artery Social History Social History Patient Tobacco Use Status: Never used Tobacco Advance Directives: No Advance Directives Information Provided: Yes Meds Allergies Allergy/AdvReac Type Severity Reaction Status Date / Time gadobenic acid [Multihance] Allergy Severe Rash Verified 05/04/23 10:02 azithromycin Allergy Intermediate HIVES Verified 05/04/23 10:02 [From ZITHROMAX Z-JOYCE] Iodinated Contrast Media Allergy Intermediate HIVES Verified 05/04/23 10:02 [IV CONTRAST] Penicillins Allergy Mild RASH Verified 05/04/23 10:02 Home Medications Medication Instructions Recorded Confirmed Last Taken Type allopurinol 100 mg tablet 100 mg PO DAILY 04/21/20 05/04/23 Unknown History montelukast 10 mg tablet 10 mg PO DAILY 04/21/20 05/04/23 Unknown History brimonidine 0.1 % eye drops drp ophthalmic (eye) 02/07/23 05/04/23 Unknown History (Alphagan P) potassium citrate 10 mEq (1,080 PO 02/07/23 05/04/23 Unknown History mg) tablet,extended release Exam Narrative Narrative: ECHO 12/2022 Conclusions: - 1. Mild to moderate LV systolic dysfunction 2. Left atrial is mildly dilated 3. Mild aortic stenosis 4. Normal RVSP 5. No pericardial effusion. NM nicolás perf SPECT rest & str 02/2023 Impression: 1. Myocardial perfusion imaging study shows no clear evidence of any ischemia or infarction. Probably normal myocardial perfusion. 2. Gated LVEF is 42% during stress and 45% during rest. Correlate with echocardiogram. 3. Transient ischemic dilatation not present. EKG component of the test reported separately. Assessment and Plan Assessment Anesthesia Assessment: Chart Reviewed Documented by User: Jessica Boyer MD 05/31/23 11:58 [facility]LY [facility] Past Medical History Medical History Pulmonary nodules Chronic restrictive lung disease Chronic renal disease Nonsustained ventricular tachycardia PVCs (premature ventricular contractions) CAD (coronary artery disease) Dyspnea Chronic allergic rhinitis Asthma Sarcoidosis Family History Family History Other Asthma Family history of problems with anesthesia: No Surgical History Surgical History Stented coronary artery History of Problems with Anesthesia: No Social History Social History Patient Tobacco Use Status: Never used Tobacco Advance Directives: No Advance Directives Information Provided: Yes Meds Allergies Allergy/AdvReac Type Severity Reaction Status Date / Time gadobenic acid [Multihance] Allergy Severe Rash Verified 05/04/23 10:02 azithromycin Allergy Intermediate HIVES Verified 05/04/23 10:02 [From ZITHROMAX Z-JOYCE] Iodinated Contrast Media Allergy Intermediate HIVES Verified 05/04/23 10:02 [IV CONTRAST] Penicillins Allergy Mild RASH Verified 05/04/23 10:02 Home Medications Medication Instructions Recorded Confirmed Last Taken Type allopurinol 100 mg tablet 100 mg PO DAILY 04/21/20 05/04/23 Unknown History montelukast 10 mg tablet 10 mg PO DAILY 04/21/20 05/04/23 Unknown History brimonidine 0.1 % eye drops drp ophthalmic (eye) 02/07/23 05/04/23 Unknown History (Alphagan P) potassium citrate 10 mEq (1,080 PO 02/07/23 05/04/23 Unknown History mg) tablet,extended release Exam Airway Mallampati Class: II TM Dist: >3cm Neck ROM: Full Heart: rrr Lungs: cta Assessment and Plan Assessment Anesthesia Assessment: Anesthesia Plan Discussed Final Anesthetic Review Family History of Problems with Anesthesia: No History of Problems with Anesthesia: No NPO: Yes ASA Class: III Final Preanesthetic Review: No Changes in Pt Med Stat, Meds/Allgs Chart Reviewed and Consent Obtained/Reviewed Patient Risk: Intermediate Procedure Risk: Low Anesthetic Plan Anesthetic Plan: GA Disposition: Standard PACU
--- NOTE | 2023-05-31 11:46 | MHC.SHP ---
Pre-Procedural Eval Section A - 24 Hr Update-Section A only Date of Service: 05/31/23 The patient is an INPATIENT: No Changes since office visit: Yes Changes in Medication and Yes Patient answered all questions; No Cold of Flu in the past 2 weeks and No New Medical Problems The patient has been examined within 24 hours of the surgical procedure. The History & Physical has been completed within 30 days and I have reviewed it.: Yes Section B - Complete if H&P > 30 days Chief Complaint: Unspecified atrial flutter Allergies: Allergies Allergy/AdvReac Type Severity Reaction Status Date / Time gadobenic acid [Multihance] Allergy Severe Rash Verified 05/04/23 10:02 azithromycin Allergy Intermediate HIVES Verified 05/04/23 10:02 [From ZITHROMAX Z-JOYCE] Iodinated Contrast Media Allergy Intermediate HIVES Verified 05/04/23 10:02 [IV CONTRAST] Penicillins Allergy Mild RASH Verified 05/04/23 10:02 Plan I have reviewed the history and physical and performed a pertinent physical examination on my patient. No changes have occurred unless specified. Time Spent With Patient Time: Total time managing care of this patient today ____ minutes.
[2023-05-31 11:59] VITALS: BMI 31.2
[2023-05-31 12:03] VITALS: BP 112/73; PULSE 66; RESP 18; TEMP 36.1; O2SAT 96
[2023-05-31] MEDS: Lactated Ringers 1,000 ML 100 ML IVCONT (12:19)
--- NOTE | 2023-05-31 13:41 | PC.NURSE ---
When asked what procedure he was having done, pt was unable to state. Pt knows it has something to do with his heart. My told me about an hour ago, but I forgot Pt oriented x4, but is a poor historian regarding his medical history.
--- NOTE | 2023-05-31 14:01 | ECG_ITS ---
Test Reason : s/p cardioversion Blood Pressure : / mmHG Vent. Rate : 058 BPM Atrial Rate : 058 BPM P-R Int : 222 ms QRS Dur : 108 ms QT Int : 442 ms P-R-T Axes : 022 -23 -24 degrees QTc Int : 433 ms Sinus bradycardia with 1st degree A-V block with frequent Premature ventricular complexes Nonspecific T wave abnormality Abnormal ECG When compared with ECG of 20-AUG-2014 16:18, Premature supraventricular complexes are no longer Present NM interval has increased Vent. rate has decreased BY 39 BPM Nonspecific T wave abnormality now evident in Anterior leads Referred By: Joon Hopper Electronically Signed By:JOON HOPPER MD
--- NOTE | 2023-05-31 14:05 | HO.CARDIVERS ---
Cardioversion Procedure Note Cardioversion Date of Procedure: Today Ordering Provider: Dr. Hopper Performing Provider: Dr. Hopper Indication for Procedure: Symptomatic persistent atrial fibrillation Pre-Op Diagnosis: Same Post-Op Diagnosis: NSR Performed with Transesophageal Echo: No Consent: Verbal and Written consent was obtained from the patient before starting. The patient was made aware of the risk of synchronized cardioversion including benefits and alternatives Procedure: After consent obtained, cardioversion pads were attached in AP configuration and the patient was sedated by the anesthesia team. Once adequate sedation achieved, patinet was delivered 200 J of biphasic synchronized energy in AP configuration. Complications: None Impression: Successful conversion to NSR Recommendations: 1. 12 lead EKG 2. Continue multaq and eliquis. 3. Follow up in clinic.
[2023-05-31 14:13] VITALS: BP 85/58; PULSE 59; RESP 17; TEMP 36.7; O2SAT 96
[2023-05-31 14:18] VITALS: BP 90/58; PULSE 58; RESP 18; O2SAT 97
[2023-05-31 14:23] VITALS: BP 94/76; PULSE 57; RESP 18; O2SAT 99
[2023-05-31 14:28] VITALS: BP 120/80; PULSE 62; RESP 18; TEMP 36.3; O2SAT 96
[2023-05-31 14:43] VITALS: BP 128/72; PULSE 62; RESP 18; O2SAT 96
== END 2023-05-31 15:35 | disposition home or self-care (01) ==
PROVIDERS: PCP Internal Medicine; Visit Provider Internal Medicine Cardiovascular Disease
PROC: 5A2204Z Restoration of Cardiac Rhythm, Single (ICD-10-PCS; principal; 2023-05-31 13:00)
DX: I48.92 Unspecified atrial flutter (principal); I48.19 Other persistent atrial fibrillation; I42.9 Cardiomyopathy, unspecified; I25.10 Atherosclerotic heart disease of native coronary artery without angina pectoris; Z95.5 Presence of coronary angioplasty implant and graft; I49.3 Ventricular premature depolarization; I47.29 Other ventricular tachycardia; J45.909 Unspecified asthma, uncomplicated; D86.9 Sarcoidosis, unspecified; Z79.01 Long term (current) use of anticoagulants; N18.9 Chronic kidney disease, unspecified; Z79.51 Long term (current) use of inhaled steroids; Z79.899 Other long term (current) drug therapy; Z91.041 Radiographic dye allergy status; Z88.0 Allergy status to penicillin; Z88.1 Allergy status to other antibiotic agents
CPT/HCPCS: 92960; 93005; J2704

== ENCOUNTER → 2023-05-31 11:18 | Outpatient (BNV) | payer MEDICARE, OTHER, SELFPAY | PROVIDERS: PCP Internal Medicine; Visit Provider Internal Medicine Cardiovascular Disease | DX: I48.19 Other persistent atrial fibrillation (principal) | CPT/HCPCS: 92960; 93010 ==

== ENCOUNTER → 2023-06-14 11:28 | Outpatient (REF) | payer MEDICARE, OTHER, SELFPAY ==
--- NOTE | 2023-06-14 11:33 | HM_ITS ---
* Total monitoring time 3 days. * Underlying rhythm is sinus with an average rate of 54/Min. * Frequent ventricular ectopy with a burden of 10%. Frequent bigeminy. Rare trigeminy. Rare couplets, triplets. Multiple morphologies.5 short runs. Longest 7 beats. * Rare supraventricular ectopy. * No significant pauses or AV blocks. * No patient markers or diary events. MTDD
== END ==
LOC: HO.CARD 11:28
PROVIDERS: PCP Internal Medicine; Visit Provider Internal Medicine Cardiovascular Disease
DX: I48.92 Unspecified atrial flutter (principal); I49.3 Ventricular premature depolarization
CPT/HCPCS: 93242

== ENCOUNTER → 2023-06-14 11:33 | Outpatient (BNV) | payer MEDICARE, OTHER, SELFPAY | PROVIDERS: PCP Internal Medicine; Visit Provider Internal Medicine | DX: I49.3 Ventricular premature depolarization (principal) | CPT/HCPCS: 93244 ==

== ENCOUNTER 2023-06-19 09:57 | Outpatient (REF) | payer MEDICARE, OTHER, SELFPAY ==
--- NOTE | ~2023-06-19 | CT_ITS ---
EXAMINATION: CT CHEST WITHOUT CONTRAST CLINICAL INFORMATION: Pulmonary nodules. COMPARISON: CT chest 07/20/2020. TECHNIQUE: Multidetector volumetric CT imaging of the chest was done. Axial MIP volume rendering provided. Sagittal and coronal reformatted images were obtained. This CT examination was performed using dose optimization techniques as appropriate, variously including the following: *Automated exposure control *Adjustment of mA and/or kV according to patient size (this includes techniques or standardized protocols for targeted exams where dose is matched to indication/reason for exam; i.e. extremities or head) *Use of iterative reconstruction technique DLP: 322 mGy-cm FINDINGS: LUNGS: Again seen are numerous bilateral pulmonary nodules many of which have associated calcification. Rich images of most have been saved. When comparison is made to the 07/20/2020 study there has been no significant or meaningful interval change. Some traction bronchiectasis is present at the lung bases, most marked in the right lower lobe medially. MEDIASTINUM: Heart size is normal. Again seen is mediastinal and bilateral hilar lymphadenopathy with the majority of nodes with calcification unchanged when compared to the 07/20/2020 study. CORONARY ARTERY CALCIFICATION: Extensive. PLEURA: There is no pleural effusion. No pleural mass or thickening. AXILLA: No lymphadenopathy. UPPER ABDOMEN: Unremarkable. OSSEOUS STRUCTURES: Mild degenerative changes. No bony destructive lesions. CT/CT chest wo IV con IMPRESSION: Stable appearance of the chest with numerous bilateral pulmonary nodules and mediastinal and hilar lymphadenopathy. The majority of the nodules and lymph nodes contain calcification. 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 Fleischner guidelines were followed.
== END 2023-06-19 09:58 | disposition home or self-care (01) ==
LOC: HO.CT 09:57
PROVIDERS: PCP Internal Medicine; Visit Provider Hospitalist
DX: R91.8 Other nonspecific abnormal finding of lung field (principal)
CPT/HCPCS: 71250

== ENCOUNTER 2023-06-29 10:21 | Outpatient (AMB) | payer MEDICARE, OTHER, SELFPAY ==
--- NOTE | 2023-06-29 10:23 | MHC.OFFVIS ---
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 Accompanied by: Spouse Allergies gadobenic acid [Multihance] Allergy (Severe, Verified 05/04/23 10:02) Rash azithromycin [From ZITHROMAX Z-JOYCE] Allergy (Intermediate, Verified 05/04/23 10:02) HIVES Iodinated Contrast Media [IV CONTRAST] Allergy (Intermediate, Verified 05/04/23 10:02) HIVES Penicillins Allergy (Mild, Verified 05/04/23 10:02) RASH Medication List - Last Reconciled 06/29/23 by Joon Hopper MD albuterol sulfate 90 mcg/actuation 2 inhalations inhalation Q6H PRN 30 days allopurinol 100 mg PO DAILY apixaban (Eliquis) 5 mg PO BID 90 days atorvastatin 80 mg PO DAILY azelastine-fluticasone 137-50 mcg/spray 1 spray intranasal BID bisoprolol fumarate 5 mg PO DAILY brimonidine 0.1% (Alphagan P) drps ophthalmic (eye) dronedarone (Multaq) 400 mg PO Q12H finasteride 5 mg PO DAILY losartan 25 mg PO BEDTIME mometasone-formoterol 200-5 mcg/actuation 2 puffs inhalation BID 90 days montelukast 10 mg PO DAILY potassium citrate ER PO tiotropium bromide 2.5 mcg/actuation (Spiriva Respimat) 2 inhalations inhalation DAILY HPI Comments Details: Erasmo comes for follow-up, accompanied by his . Status post cardioversion. Holter monitor shows frequent sinus bradycardia and frequent PVCs. However there was no episodes of atrial flutter fibrillation. Patient says he does not feel much difference in his symptomatology. Has not been exercising much. Denies any anginal symptoms. No heart failure symptoms. He said he had episode of lightheadedness yesterday in the late afternoon lasted for about couple of hours. He did not syncopized. This was while he was sitting in the chair any cap sitting. No hemodynamics were performed at that time. Takes all his medications. No bleeding issues or neurologic events [facility] Medical History Pulmonary nodules Chronic restrictive lung disease Chronic renal disease Nonsustained ventricular tachycardia PVCs (premature ventricular contractions) CAD (coronary artery disease) Dyspnea Chronic allergic rhinitis Asthma Sarcoidosis Surgical History Stented coronary artery Family History Other Asthma Social History Patient Tobacco Use Status: Current someday Tobacco user Tobacco use type: Cigar Review of Systems Const Denies chills, Denies fatigue, Denies fever(s), Denies frequent falls, Denies weakness, Denies weight gain and Denies weight loss ENT Denies dizziness Card Denies chest pain, Denies leg edema, Denies lightheadedness, Denies palpitations, Denies dyspnea, Denies dyspnea on exertion, Denies orthopnea and Denies other (loss of consciousness) Resp Denies cough, Denies dyspnea and Denies dyspnea on exertion GI Denies hematochezia and Denies change in stool character Musc Denies abnormal gait, Denies muscle weakness, Denies numbness, Denies radiating pain into limb and Denies tingling Neuro Denies abnormal gait, Denies dizziness, Denies frequent falls, Denies numbness, Denies tingling and Denies weakness Endo Denies fatigue and Denies palpitations Physical Exam Vital Signs: BMI result Body Mass Index 32.9 Const General: cooperative, comfortable, alert and awake Nutritional Appearance: obese Orientation/consciousness: patient oriented x3 Limitations: ambulation with cane Neck Neck: Yes trachea midline, Yes supple and Yes no JVD Resp Effort & Inspection: normal respiratory effort Auscultation: clear to auscultation bilaterally, no rales and no wheezes Cardio Jugular venous distension: no JVD Palpation: normal PMI Rate: regular rate Rhythm: abnormal rhythm with ectopic beats Heart sounds: S1 normal heart sound present, S2 normal heart sound present, no click, no gallops and Murmur heart sound present systolic early, decrescendo and crescendo GI Auscultation: normal bowel sounds Skin General skin exam: no rashes or lesions noted Neuro General: patient oriented x3 and no focal motor deficits Extrem General: Yes no clubbing, cyanosis or edema Psych Appearance: grossly normal Office Procedures EKG Details: EKG shows normal sinus rhythm with heart rate of 59 beats per minute frequent PVCs with first-degree AV block with PVCs appear to be unifocal on today's EKG with nonspecific T-wave changes [id number], Complete Assessment & Plan Assessment & Plan (1) Cardiomyopathy: Code(s): I42.9 - Cardiomyopathy, unspecified Category: Medical Plan: Cardiomyopathy of unclear etiology although clinically with no signs or symptoms of heart failure. Continue neurohormonal modulation with bisoprolol and losartan. There is no evidence of myocardial ischemia. Signs and symptoms of heart failure were discussed. Encouraged to increase activity level. (2) Atrial flutter: Code(s): I48.92 - Unspecified atrial flutter Category: Medical Qualifiers: Atrial flutter type: unspecified Qualified Code(s): I48.92 - Unspecified atrial flutter Plan: Atrial flutter which is not paroxysmal since cardioversion. Currently being maintained on Multaq therapy and maintaining his rhythm. Heart rate is on the slow side without any symptoms. Continue Multaq therapy. He has not noticed significant change in his exercise capacity. Encouraged to continue to participate in physical activity as tolerated. If there is no significant change in his functional capacity in normal sinus rhythm in future will pursue rate control approach either blood control approach. Continue full oral anticoagulation, currently on Eliquis 5 mg b.i.d.. Semi annual renal function test should be performed. EKG every 3 months need to be performed. (3) CAD (coronary artery disease): Code(s): I25.10 - Atherosclerotic heart disease of [place] coronary artery without angina pectoris Category: Medical Plan: CAD status post prior stenting to the LAD. No symptoms of angina. Currently on full oral anticoagulation with Eliquis and therefore would avoid antiplatelet regimen. Continue full high-intensity statin therapy. Target goal LDL closer to 60 mg/dL. Blood pressure is generally well optimized advised to monitor blood pressure at home maintain a log. Goal blood pressure less than 130/84. Low-salt diet was discussed. Advised to increase activity level and participate in weight loss program. (4) PVCs (premature ventricular contractions): Code(s): I49.3 - Ventricular premature depolarization Category: Medical Plan: PVCs which are frequent and multifocal. Although he has no symptoms related to it. No obvious etiology including extensive workup for cardiac sarcoidosis has led to no obvious findings of infiltrative heart disease. Remains asymptomatic. He does have episode of nonsustained VT. LV ejection fraction is mildly to moderately depressed will continue monitor. If LV function further deteriorates consider ICD placement. This was discussed. Follow up in the clinic in 3 months for EKG in 6 months with me. Thank you for allowing me to partake in his care Coding Level of Care Code Est Pt Level 4 (15056) Diagnoses Cardiomyopathy I42.9 Atrial flutter, unspecified type I48.92 Atrial flutter type: unspecified CAD (coronary artery disease) I25.10 PVCs (premature ventricular contractions) I49.3 CPT Codes EKG - CPT: 39449-[id number], Complete ([id number])
[2023-06-29 10:24] VITALS: BP 140/80; PULSE 59; BMI 32.9
== END 2023-06-29 10:50 | disposition home or self-care (01) ==
PROVIDERS: PCP Internal Medicine; Visit Provider Internal Medicine Cardiovascular Disease
DX: I42.9 Cardiomyopathy, unspecified (principal); I48.92 Unspecified atrial flutter; I25.10 Atherosclerotic heart disease of native coronary artery without angina pectoris; I49.3 Ventricular premature depolarization
CPT/HCPCS: 93010; 99214

== ENCOUNTER → 2023-06-29 10:21 | Outpatient (BNVA) | payer MEDICARE, OTHER, SELFPAY | PROVIDERS: PCP Internal Medicine; Visit Provider Internal Medicine Cardiovascular Disease | DX: I42.9 Cardiomyopathy, unspecified (principal); I48.92 Unspecified atrial flutter; I25.10 Atherosclerotic heart disease of native coronary artery without angina pectoris; I49.3 Ventricular premature depolarization | CPT/HCPCS: 93005; 99212 ==

== ENCOUNTER 2023-07-14 11:46 | Outpatient (REF) | payer MEDICARE, OTHER, SELFPAY ==
[2023-07-14 12:31] LABS: Alanine Aminotransferase 20 U/L (0-40); Albumin Level 3.8 g/dL (3.5-5.0); Alkaline Phosphatase 63 U/L (39-117); Aspartate Amino Transferase 23 U/L (5-37); Bilirubin Direct 0.4 mg/dL (0.0-0.5); Cholesterol 114 mg/dL (<200); HDL Cholesterol 42 mg/dL (>40); LDL Cholesterol Calculated 53 mg/dL (<100); Total Protein 7.5 g/dL (6.5-8.0); Triglycerides 97 mg/dL (<150)
[2023-07-14 14:49] LABS: Reflex LDLD? No
== END 2023-07-14 11:47 | disposition home or self-care (01) ==
LOC: HO.LNP 11:46
PROVIDERS: Visit Provider Internal Medicine
DX: E78.00 Pure hypercholesterolemia, unspecified (principal)
CPT/HCPCS: 80061; 80076

== ENCOUNTER 2023-08-20 17:34 | Inpatient (IN) | payer MEDICARE, OTHER, SELFPAY ==
--- NOTE | ~2023-08-20 | CT_ITS ---
EXAMINATION: CT soft tissue neck w IV con CLINICAL INFORMATION: right sided swelling, patient had recent right sided dental extraction, now septic with significant right sided facial and neck swelling - concern for abscess. COMPARISON: None TECHNIQUE: Following the administration of 60 mL of Omnipaque 350 intravenous contrast, helical imaging was performed in the axial plane with generation of coronal and sagittal reformatted images. This CT examination was performed using dose optimization techniques as appropriate, variously including the following: * Automated exposure control * Adjustment of mA and/or kV according to patient size (this includes techniques or standardized protocols for targeted exams where dose is matched to indication/reason for exam; i.e. extremities or head) Use of iterative reconstruction technique DLP: 2178 mGy-cm FINDINGS: Absent right mandibular second premolar tooth and second molar. Small mucus retention cyst in the posterior maxillary sinus. Inferior mucoperiosteal thickening in the left maxillary sinus. No acute fracture. Streak artifact from dental amalgam limits evaluation of the soft tissues. Phlegmonous changes are seen within the right premandibular space including small foci of gas. There is marked asymmetric soft tissue edema and inflammatory stranding within the right cheek/premandibular space. No organized fluid collection. The parotid glands are homogeneous in attenuation. Submandibular glands are normal. No contour abnormality or pathologic enhancement is seen within the oral cavity or pharyngeal mucosal space. No retropharyngeal fluid collection is seen. The parapharyngeal fat is preserved. The carotid sheath vasculature opacify normally. No extra mucosal soft tissue mass or fluid collection is seen. No suspicious cervical lymph nodes are identified by size criteria, enhancement characteristics, or morphology. The thyroid gland appears normal. Multifocal nodular opacities in the visualized lung apices. The imaged portions of the brain and orbits appear within normal limits. Mild cervical spondylosis. There are no destructive lesions within the osseous structures. CT/CT soft tissue neck w IV con IMPRESSION: 1. Phlegmonous changes in the right premandibular space with marked asymmetric soft tissue edema and inflammatory stranding. No organized fluid collection. 2. Absent right mandibular second premolar tooth and second molar. 3. Multifocal nodular opacities in the visualized lung apices, likely infectious/inflammatory in etiology.
--- NOTE | ~2023-08-20 | XR_ITS ---
EXAMINATION: XR CHEST CLINICAL INFORMATION: Follow-up pneumonia. COMPARISON: Prior chest radiographs, most recently 08/22/2023; CT chest dated 06/17/2023.. TECHNIQUE: Frontal view of the chest was obtained. FINDINGS: The heart, great vessels, pulmonary vasculature and mediastinum are stable. There are persistent bilateral patchy opacities, with some interim improvement in the right upper lobe. A small right pleural effusion is questioned. There is no pneumothorax. Multiple calcified lymph nodes are redemonstrated. There are degenerative changes of the shoulders. No acute osseous abnormality is seen. XR/XR chest 1V IMPRESSION: Findings are consistent with persistent mild bilateral pneumonia and a small right pleural effusion.
--- NOTE | ~2023-08-20 | CT_ITS ---
EXAMINATION: CT head/brain wo IV con CLINICAL INFORMATION: Patient more altered than baseline COMPARISON: CT head 08/19/2022 TECHNIQUE: Contiguous axial imaging was performed from the skull base to vertex without intravenous contrast. This CT examination was performed using dose optimization techniques as appropriate, variously including the following: * Automated exposure control * Adjustment of mA and/or kV according to patient size (this includes techniques or standardized protocols for targeted exams where dose is matched to indication/reason for exam; i.e. extremities or head) * Use of iterative reconstruction technique DLP: 773 mGy-cm. FINDINGS: There is no evidence of acute intracranial hemorrhage or territorial infarction. Ferreira to white matter differentiation is well preserved. No abnormal mass effect or midline shift is seen. No extra-axial fluid collections are identified. No hydrocephalus. Proportional prominence of the ventricles and sulcal spaces is consistent with moderate volume loss. Patchy periventricular and deep white matter hypoattenuation is consistent with mild small vessel ischemic changes. The cerebellar tonsils are well positioned. No acute osseous or soft tissue abnormality. Visualized portions of the orbits are unremarkable. Mild mucoperiosteal thickening in the left maxillary sinus. Remaining visualized paranasal sinuses and mastoid air cells are well-aerated. CT/CT head/brain wo IV con IMPRESSION: 1. No acute intracranial pathology. No significant interval change compared to 08/16/2022. 2. Chronic small vessel ischemic disease and volume loss.
--- NOTE | ~2023-08-20 | US_ITS ---
EXAMINATION: US ABDOMEN LIMITED CLINICAL INFORMATION: Elevated Bilirubin, septic COMPARISON: CT abdomen/pelvis 10/29/2018 TECHNIQUE: Real-time imaging of the right upper quadrant abdominal viscera. FINDINGS: PANCREAS: Obscured from visualization by overlying bowel gas. LIVER: Evaluation is limited due to patient body habitus. The visualized liver is normal in size. The liver contour is normal. There is diffuse mildly increased liver parenchymal echogenicity, consistent with hepatic steatosis. No focal hepatic lesion. There is no intrahepatic biliary duct dilatation seen. GALLBLADDER: The gallbladder is physiologically distended without evidence of stones, sludge, polyps, wall thickening or pericholecystic fluid. COMMON BILE DUCT: Normal in caliber measuring 0.5 cm in diameter. FREE FLUID: None. US/US abdomen limited IMPRESSION: Mild hepatic steatosis.
--- NOTE | ~2023-08-20 | XR_ITS ---
EXAMINATION: XR CHEST CLINICAL INFORMATION: Hypoxia sepsis COMPARISON: Chest radiograph from 06/29/2020 TECHNIQUE: Frontal view of the chest was obtained. FINDINGS: Bilateral pulmonary nodules are better appreciated on prior cross-sectional imaging. Bilateral low lung volume. Interstitial prominence. Trace bilateral pleural effusions. No pneumothorax. Trachea is midline. Cardiac mediastinal silhouette is mildly enlarged. Osseous structures are intact. Soft tissues are unremarkable. XR/XR chest 1V IMPRESSION: 1. Bilateral pulmonary nodules are better appreciated on prior cross-sectional imaging. 2. Bilateral low lung volume. 3. Interstitial prominence. 4. Trace bilateral pleural effusions.
--- NOTE | ~2023-08-20 | CT_ITS ---
EXAMINATION: CT FACIAL BONES WITHOUT CONTRAST CLINICAL INFORMATION: Swelling COMPARISON: CT head and neck exams from the same day TECHNIQUE: Noncontrast multidetector helical imaging was performed through the facial bones. Coronal and sagittal reformatted images were created. This CT examination was performed using dose optimization techniques as appropriate, variously including the following: *Automated exposure control *Adjustment of mA and/or kV according to patient size (this includes techniques or standardized protocols for targeted exams where dose is matched to indication/reason for exam; i.e. extremities or head) *Use of iterative reconstruction technique DLP: 1432 mGy-cm FINDINGS: There is redemonstration of phlegmonous changes around the right aspect of the mandible as seen on recent soft tissue neck CT. No definite fluid collection is seen, though evaluation for this is limited in the absence of intravenous contrast. Evaluation of this region is also limited due to streak artifact from dental hardware. Redemonstrated sequelae of right-sided mandibular tooth extraction. No acute maxillofacial fractures are seen. Moderate mucosal thickening of the left maxillary sinus. Mild mucosal thickening of the right maxillary sinus. Slight mucosal thickening of the bilateral ethmoid air cells. Frontal and sphenoid sinuses appear well-aerated The mandibular condyles are well-seated in the condylar fossa. Mastoid air cells are well-aerated. The orbits demonstrate a grossly normal appearance bilaterally. The globes are intact, and there are no suspicious findings to suggest retrobulbar hemorrhage. Visualized portions of the brain parenchyma are unremarkable. Degenerative changes noted in the partially visualized cervical spine. CT/CT facial bones wo IV con IMPRESSION: Redemonstration of phlegmonous changes around the right aspect of the mandible as seen on recent soft tissue neck CT. No definite fluid collection is seen, though evaluation for this is limited in the absence of intravenous contrast and streak artifact from dental hardware.
--- NOTE | ~2023-08-20 | XR_ITS ---
EXAMINATION: XR CHEST CLINICAL INFORMATION: Hypoxia COMPARISON: Chest 08/20/2023 TECHNIQUE: AP upright portable view of the chest was obtained. 10:24 AM FINDINGS: The patient is rotated. Low lung volumes. There is increased patchy opacity in the left upper lobe and left lower lobe/lingula. There is definite increased patchy opacity in the right lower lobe/right middle lobe. Again noted is slight streaky opacity in the right upper lobe. The cardiomediastinal silhouette is stable. Probable small right pleural effusion. A few small pulmonary nodules are noted. No acute osseous abnormality. There is marked degenerative change of the left glenohumeral joint. XR/XR chest 1V IMPRESSION: 1. Worsening bilateral pneumonia. 2. Probable small right pleural effusion. 3. A few small pulmonary nodules are noted, better seen on chest CT scan
[2023-08-20 17:44] VITALS: BP 104/41; BP 90/42; PULSE 60; PULSE 67; RESP 26; TEMP 39; O2SAT 89; BMI 33.6
--- NOTE | 2023-08-20 17:54 | ECG_ITS ---
Test Reason : AMS Blood Pressure : / mmHG Vent. Rate : 070 BPM Atrial Rate : 070 BPM P-R Int : 192 ms QRS Dur : 104 ms QT Int : 426 ms P-R-T Axes : 011 -26 -07 degrees QTc Int : 460 ms Sinus rhythm with frequent Premature ventricular complexes Nonspecific ST and T wave abnormality Abnormal ECG When compared with ECG of 31-MAY-2023 14:24, [place] interval has decreased Referred By: Mercedes Gonzales Electronically Signed By:CASSIDY MITCHELL MD
--- NOTE | 2023-08-20 17:54 | ED.GENADULT ---
HPI - General Adult General Chief complaint: Altered Mental Status Stated complaint: ams, dental surgery recently, R side jaw swelling Time Seen by Provider: 08/20/23 17:53 Source: patient Mode of arrival: ambulatory Limitations: no limitations History of Present Illness ED Provider: Mercedes Gonzales PA-C HPI narrative: 78-year-old male with history of atrial flutter s/p cardioversion on eliquis, CAD, sarcoidosis of the lung, asthma who is s/p tooth extraction on 08/14 and was brought from home by ambulance for evaluation of AMS and right-sided facial swelling. He had 3 teeth extracted from his right mouth (2 from back bottom, one from back top) on 08/14, swelling started on 08/16, and his noticed some confusion starting this morning. His eliquis was held for the procedure, his gave him one dose on 08/15 morning and has not given it since because she noticed the swelling on morning of 08/16. He has not been eating or drinking as much since the procedure. He had 3 episodes of diarrhea 2 days ago, no blood, has been taking antidiarrheals with good effect. He was not on any antibiotics pre- or post-extraction, but his called dentist this morning about the swelling and dentist prescribed augmentin, he has had one dose. Patient denies chest pain, shortness of breath, nausea/vomiting. Denies difficulty breathing given the swelling, but endorses some difficulty swallowing. He is alert and oriented to person and place, not the year. MD complaint: Right-sided facial swelling, AMS Onset (ago): day(s) (5 days swelling, confusion since this morning) Location: face and neck Radiation: non-radiation Associated symptoms: confusion, fever/chills and loss of appetite Treatments prior to arrival: cold therapy Related Data Home Medications ?Medication ?Instructions ?Recorded ?Confirmed allopurinol 100 mg tablet 100 mg PO DAILY 04/21/20 06/29/23 montelukast 10 mg tablet 10 mg PO DAILY 04/21/20 06/29/23 brimonidine 0.1 % eye drops drp ophthalmic (eye) 02/07/23 06/29/23 (Alphagan P) potassium citrate 10 mEq (1,080 PO 02/07/23 06/29/23 mg) tablet,extended release finasteride 5 mg tablet 5 mg PO DAILY 06/29/23 06/29/23 Previous Rx's ?Medication ?Instructions ?Recorded azelastine 137 mcg-fluticasone 50 1 spray intranasal BID #69 grams 12/20/21 mcg/spray nasal spray mometasone-formoterol HFA 200 2 puff inhalation BID 90 days #3 ea 11/07/22 mcg-5 mcg/actuation aerosol inhaler losartan 25 mg tablet 25 mg PO BEDTIME #90 tabs 11/16/22 tiotropium bromide 2.5 2 inh inhalation DAILY #12 grams 11/16/22 mcg/actuation mist for inhalation (Spiriva Respimat) albuterol sulfate 90 mcg/actuation 2 inh inhalation Q6H PRN shortness 12/19/22 aerosol inhaler of breath or wheezing 30 days #18 grams atorvastatin 80 mg tablet 80 mg PO DAILY #90 tabs 04/26/23 bisoprolol fumarate 5 mg tablet 5 mg PO DAILY #90 tabs 05/25/23 apixaban 5 mg tablet (Eliquis) 5 mg PO BID 90 days #180 tabs 05/30/23 dronedarone 400 mg tablet (Multaq) 400 mg PO Q12H 90 days #180 tabs 07/17/23 Allergies Allergy/AdvReac Type Severity Reaction Status Date / Time gadobenic acid [Multihance] Allergy Severe Rash Verified 08/20/23 17:46 azithromycin Allergy Intermediate HIVES Verified 08/20/23 17:46 [From ZITHROMAX Z-JOYCE] Iodinated Contrast Media Allergy Intermediate HIVES Verified 08/20/23 17:46 [IV CONTRAST] Penicillins Allergy Mild RASH Verified 08/20/23 17:46 Review of Systems Constitutional: Constitutional: Reports no additional constitutional complaints, Denies chills, Reports fever(s) and Denies night sweats Eyes: Eyes: Reports no additional eye complaints, Denies blurry vision, Denies change in vision, Denies diplopia, Denies eye discharge, Denies loss of vision and Denies eye pain ENT: Reports dysphagia, Denies dizziness and Reports facial pain Cardiovascular: Cardiovascular: Reports no additional cardiovascular complaints, Denies chest pain, Denies lightheadedness, Denies Loss of Consciousness and Denies dyspnea Respiratory: Respiratory: Reports no additional respiratory complaints and Denies dyspnea Gastrointestinal: Gastrointestinal: Reports no additional gastrointestinal complaints, Denies abdominal pain, Denies melena, Denies hematochezia, Denies change in bowel habits, Denies change in stool character, Reports dysphagia and Reports diarrhea (3 episodes, improved with medication) Genitourinary: Genitourinary: Reports no additional male genitourinary complaints, Denies hematuria, Denies oliguria, Denies difficulty urinating, Denies dysuria, Denies urinary frequency, Denies urinary hesitancy, Denies urinary incontinence and Denies urinary urgency Musculoskeletal: Musculoskeletal: Reports no additional musculoskeletal complaints, Denies numbness and Denies tingling Integumentary/Breasts: Skin/Breast: Reports swelling (right side of face and neck with overlying bruise) Neurologic: Reports confusion (alert, oriented to person and place, not year, able to answer hpi questions), Denies dizziness, Denies loss of vision, Denies numbness and Denies tingling Psychiatric: Psychiatric: Reports no additional psychiatric complaints and Reports confusion (alert, oriented to person and place, not year, able to answer hpi questions) Endocrine: Endocrine: Reports no additional endocrine complaints Hematologic/Lymphatic: Hematologic/Lymphatic: Reports no additional hematologic/lymphatic complaints Allergic/Immunologic: Allergic/Immunologic: Reports no additional allergic/immunologic complaints PMFSH Past Medical History Attestation statement: The following information was validated with the patient. (all information validated with the patient's ) Source: old records reviewed, obtained from family (patient's provided additional history and confirmed the history provided by the patient) and nursing notes reviewed Medical History Pulmonary nodules Chronic restrictive lung disease Chronic renal disease Nonsustained ventricular tachycardia PVCs (premature ventricular contractions) CAD (coronary artery disease) Dyspnea Chronic allergic rhinitis Asthma Sarcoidosis Surgical History Stented coronary artery Family History Family History Other Asthma Social History Social History Patient Tobacco Use Status: Current someday Tobacco user Tobacco use type: Cigar Smoked in Last 30 Days: No Use of substances other than those prescribed or required for medical reasons: No Advance Directives: No Advance Directives Information Provided: Yes Do you have a plan to hurt others: No Plan Physical Exam ED Vital Signs: Vital Signs - 24 hr 08/20/23 17:44 08/20/23 18:24 08/20/23 20:09 Temperature 102.2 F H Pulse Rate 67 64 66 Respiratory Rate 26 H 17 16 Blood Pressure 90/42 L 103/49 L 78/45 L Pulse Oximetry 89 L 95 98 Oxygen Delivery Method Room Air Nasal Cannula Nasal Cannula Oxygen Flow Rate 2 3 08/20/23 20:46 08/20/23 23:06 08/21/23 00:06 Temperature Pulse Rate 61 54 60 Respiratory Rate 16 15 Blood Pressure 97/39 L 114/81 97/55 L Pulse Oximetry 97 100 100 Oxygen Delivery Method Nasal Cannula Nasal Cannula Nasal Cannula Oxygen Flow Rate 3 3 3 BMI result Body Mass Index 33.6 Const General: alert, awake and confusion (alert, oriented to person and place, not year, able to answer hpi questions) Nutritional Appearance: well nourished Orientation/consciousness: confusion (alert, oriented to person and place, not year, able to answer hpi questions) Limitations: no limitations [facility] Head: Yes atraumatic Ears: hearing grossly normal bilaterally and external ears normal General nose exam: Normal external nose present, no nasal discharge noted and no epistaxis Face and sinus: No abrasion, No laceration and Yes other (right sided facial and neck swelling / bruising) Mouth: Normal oral and palatal mucosa present, no drooling and no muffled voice Eyes General: appearance normal, both eyes and all related structures Periorbital: periorbital findings normal Eyelids: Yes eyelids normal Conjunctivae: conjunctivae normal Pupils: Equal, round and reactive pupils present EOM: EOMs intact bilaterally Neck Neck: Yes normal visual inspection, Yes full ROM and Yes no lymphadenopathy Chest Chest palpation & inspection: normal inspection of the chest Resp Effort & Inspection: normal respiratory effort and able to speak in complete sentences GI Inspection: Yes normal to inspection Neuro General: confusion (alert, oriented to person and place, not year, able to answer hpi questions) Cranial nerves: Yes Equal, round and reactive pupils present Cognition (Neuro): normal cognition Motor exam (neuro): 5/5 motor strength present throughout Sensory Exam: Normal double simultaneous stimulation for sensation Coordination: [id number] test normal Extrem General: Yes normal to inspection, Yes full ROM and Yes capillary refill normal Psych Appearance: grossly normal Mental Status: mental status grossly normal Affect: normal affect Attitude: cooperative Thought process: Normal thought process present Thought content: Normal thought content present Insight: Good insight present (Psych) Medications Administered Discontinued Medications Generic Name Dose Route Start Last Admin Trade Name Mia PRN Reason Stop Dose Admin Acetaminophen 650 mg 08/20/23 18:17 08/20/23 18:34 Acetaminophen Supp 650 Mg Supp.Rect LA 08/20/23 18:18 650 mg ONCE ONE Administration Ceftriaxone Sodium 1 gm/ 50 mls @ 100 mls/hr 08/20/23 17:54 08/20/23 19:04 Sodium Chloride IV 08/20/23 18:23 Infused ONCE ONE Infusion Sodium Chloride 2,190 mls @ 2,190 mls/hr 08/20/23 17:58 08/20/23 20:00 Ns IV 08/20/23 18:57 Infused .Q1H STA Infusion Piperacillin Sod/Tazobactam 50 mls @ 100 mls/hr 08/20/23 20:08 08/20/23 20:49 Sod 3.375 gm/ Sodium Chloride IV 08/20/23 20:37 Infused ONCE ONE Infusion Sodium Chloride 500 mls @ 500 mls/hr 08/20/23 21:30 08/20/23 23:13 Ns IV 08/20/23 22:29 Infused .Q1H ESTUARDO Infusion Vancomycin HCl 2,000 mg in 500 mls @ 250 mls/hr 08/20/23 21:45 08/21/23 00:07 Vancomycin/Ns IV 08/20/23 23:44 Infused ONCE ONE Infusion Albumin Human 100 mls @ 133.333 mls/hr 08/20/23 22:00 08/21/23 00:07 Kedbumin 25 % IV 08/20/23 23:44 Infused Q1H ESTUARDO Infusion Iohexol 60 ml 08/20/23 19:24 08/20/23 19:24 Iohexol 350 Mg/Ml 100 Ml Infus..Btl IV 08/20/23 19:25 60 ml ONCE ONE Administration Medical Decision Making Medical Decision Making MDM Narrative: Patient is a 78 year old assigned male at with a history of atrial flutter on eliquis, CKD, CAD, MARE, asthma, and cardiomyopathy presenting to the emergency department today with sepsis. Patient's physical exam showed mild swelling and bruising in various stages of healing to the right side of the face and neck. Patient's blood work showed an elevated WBC count of 14.1, ESR of 59, CRP of 22.82, albumin of 3.1, total bili of 1.8, BUN of 24, CR of 1.50, and NA of 134. Patient's urine showed no acute process. Patient's chest x-ray showed trace bilateral pleural effusions. Given the patient's elevated bilirubin and at the time, undifferentiated infectious process, I obtained a RUQ US that showed no acute process. Patient's head CT showed no acute process. Patient's CT of the face and neck showed phlegmonous changes in the right premandibular space with marked asymmetric soft tissue edema and inflammatory stranding but no abscess. Additionally, showed multifocal nodular opacities in the visualized lung apices the radiologst speculates are likely infectious/inflammatory. Sepsis was added to my working differential diagnosis at 1754. Upon arrival, patient's SPO2 was initially 88% on room air. Patient was placed on 3 liters of oxygen via nasal cannula and brought up to 100%. Patient's blood pressure was 90/42. Patient was given a 30mg/kg IV fluid bolus based on ideal body weight that was calculated by the system to be 73kg therefore patient was given 2,190ml of NS. Patient was given IV ceftriaxone and zosyn. I attempted to admit the patient to medicine however, the patient's MAP continued to be on the lower side of normal and dipped into abnormal territory. I spoke the risk control product liability director motion picture photographer, Dr. Bray, who recommended IV albumin and repeating the blood pressures. Patient's blood pressure continued to remain low. Patient continued to protect his own airway and mentate well. Patient accepted to the ICU. I explained my physical exam findings as well as all test results to the patient and the patient's . I answered all questions asked by the patient and the patient's . Patient and the patient's verbalized agreement and understanding with this treatment plan and admission. Differential Diagnosis Differential Diagnoses: The differential diagnosis associated with the presentation includes Cellulitis Sepsis Hypotension Hypoxia Admission/Observation Consideration of admission/observation: Escalation of care including admission/observation considered Patient admitted to the ICU as noted in the MDM Rationale portion of this note. Consult Healthcare Provider Management of the patient was discussed with: Hospitalist (spoke to the hospitalist about potential hospital admission as noted in the MDM Rationale portion of this note.) and Beam Racker (spoke to the risk control product liability director as noted in the MDM Rationale portion of this note.) Lab Data [facility] Lab Attestation statement: I reviewed the patient's lab results. My interpretation of these results are in the MDM Rationale portion of this note. 08/20/23 18:10 08/20/23 18:10 Labs: Lab Results 08/20/23 08/20/23 08/20/23 Range/Units 17:57 18:10 20:49 WBC 14.1 H (4.8-10.8) X10*3/uL RBC 3.57 L D (4.60-5.80) X10*6/uL Hgb 12.1 L D (14.0-18.0) g/dl Hct 34.4 L D (42.0-52.0) % MCV 96.4 (80.0-98.0) fL MCH 33.9 H (27.0-33.0) pg MCHC 35.2 (31.0-36.0) g/dl RDW 13.7 (11.0-16.0) % Plt Count 153 L (160-400) X10*3/uL MPV 10.4 (9.4-12.4) fL Immature Gran % (Auto) 0.8 H (0.0-0.4) % Neut % (Auto) 82.3 H (45-73) % Lymph % (Auto) 5.9 L (20-40) % Gregg % (Auto) 10.9 (2-11) % Eos % (Auto) 0.0 (0-4) % Baso % (Auto) 0.1 (0-2) % Lymph # (Auto) 0.8 L (1.2-4.9) X10*3/uL Gregg # (Auto) 1.5 H (0.1-1.2) X10*3/uL Eos # (Auto) 0.0 (0.0-0.4) X10*3/uL Baso # (Auto) 0.0 (0.0-0.2) X10*3/uL Abs Immat Gran (auto) 0.11 H (0.00-0.03) X10*3/uL Absolute Neuts (auto) 11.6 H (2.0-8.3) x10*3/uL Absolute Nucleated RBC 0.000 (0.0-0.012) X10*3/uL Nucleated RBC % (auto) 0.0 (0.0-0.2) /100WBC Smear Tech's Comments VERIFIED ESR 59 H (0-15) MM/HR PT 17.1 H (11.1-13.3) SEC INR 1.4 H (0.9-1.1) APTT 30.7 (26.0-36.8) SEC Sodium 134 L (135-145) mmol/L Potassium 4.7 (3.3-5.1) mmol/L Chloride 106 (96-108) mmol/L Carbon Dioxide 20 L (22-29) mmol/L Anion Gap 13 (12-20) BUN 24 H (9-16) mg/dL Creatinine 1.50 H (0.5-1.4) mg/dL Estim Creat Clear Calc 49.5 Estimated GFR 45 POC Glucose 117 H (60-115) mg/dL Random Glucose 112 (60-115) mg/dL Lactic Acid 1.0 (0.5-2.0) mmol/L Calcium 8.6 D (8.4-10.2) mg/dL Magnesium 1.9 (1.6-2.6) mg/dL Total Bilirubin 1.8 H (0.0-1.0) mg/dL AST 19 (5-37) U/L ALT 13 (0-40) U/L Alkaline Phosphatase 54 (39-117) U/L Troponin I High Sens 22.2 (<3.5-35.0) ng/L C-Reactive Protein 22.82 H (< or = 0.50) mg/dL Total Protein 6.8 (6.5-8.0) g/dL Albumin 3.1 L (3.5-5.0) g/dL Urine Color Dark Yellow Urine Appearance Cloudy Urine pH 6.5 (5.0-9.0) Ur Specific Radnor 1.025 (1.005-1.025) Urine Protein Trace (Neg-Trace) mg/dL Urine Glucose (UA) Negative (Negative) mg/dL Urine Ketones Trace (Negative) mg/dL Urine Blood Large (3+) H (Negative) Urine Nitrite Negative (Negative) Ur Leukocyte Esterase Small (1+) H (Negative) Urine RBC >20 H (0-2) /HPF Urine WBC 6-10 (0-5) /HPF Ur Squamous Epith Cells 0-2 (0-2) /HPF Urine Bacteria None Seen (None Seen) Hyaline Casts 0-2 (0-2) /LPF Influenza Type A (PCR) NEGATIVE (Negative) Influenza Type B (PCR) NEGATIVE (Negative) RSV RNA Qual (PCR) NEGATIVE (Negative) SARS-CoV-2 RNA (RT-PCR) NEGATIVE (Negative) Independent Interpretation I performed an independent interpretation of an: Plain X-Ray and CT Scan Interpretation: My interpretation is in agreement with the radiologist's impression of these imaging studies. EXAMINATION: XR CHEST CLINICAL INFORMATION: Hypoxia sepsis COMPARISON: Chest radiograph from 06/29/2020 TECHNIQUE: Frontal view of the chest was obtained. FINDINGS: Bilateral pulmonary nodules are better appreciated on prior cross-sectional imaging. Bilateral low lung volume. Interstitial prominence. Trace bilateral pleural effusions. No pneumothorax. Trachea is midline. Cardiac mediastinal silhouette is mildly enlarged. Osseous structures are intact. Soft tissues are unremarkable. XR/XR chest 1V IMPRESSION: 1. Bilateral pulmonary nodules are better appreciated on prior cross-sectional imaging. 2. Bilateral low lung volume. 3. Interstitial prominence. 4. Trace bilateral pleural effusions. Dictated By: Rohan Vega MD Signed By: Electronically signed by Rohan Vega MD 08/20/[id number] EXAMINATION: US ABDOMEN LIMITED CLINICAL INFORMATION: Elevated Bilirubin, septic COMPARISON: CT abdomen/pelvis 10/29/2018 TECHNIQUE: Real-time imaging of the right upper quadrant abdominal viscera. FINDINGS: PANCREAS: Obscured from visualization by overlying bowel gas. LIVER: Evaluation is limited due to patient body habitus. The visualized liver is normal in size. The liver contour is normal. There is diffuse mildly increased liver parenchymal echogenicity, consistent with hepatic steatosis. No focal hepatic lesion. There is no intrahepatic biliary duct dilatation seen. GALLBLADDER: The gallbladder is physiologically distended without evidence of stones, sludge, polyps, wall thickening or pericholecystic fluid. COMMON BILE DUCT: Normal in caliber measuring 0.5 cm in diameter. FREE FLUID: None. US/US abdomen limited IMPRESSION: Mild hepatic steatosis. Dictated By: Christy Klein Signed By: Electronically signed by Christy Klein 08/20/232006 EXAMINATION: CT head/brain wo IV con CLINICAL INFORMATION: Patient more altered than baseline COMPARISON: CT head 08/19/2022 TECHNIQUE: Contiguous axial imaging was performed from the skull base to vertex without intravenous contrast. This CT examination was performed using dose optimization techniques as appropriate, variously including the following: * Automated exposure control * Adjustment of mA and/or kV according to patient size (this includes techniques or standardized protocols for targeted exams where dose is matched to indication/reason for exam; i.e. extremities or head) * Use of iterative reconstruction technique DLP: 773 mGy-cm. FINDINGS: There is no evidence of acute intracranial hemorrhage or territorial infarction. Ferreira to white matter differentiation is well preserved. No abnormal mass effect or midline shift is seen. No extra-axial fluid collections are identified. No hydrocephalus. Proportional prominence of the ventricles and sulcal spaces is consistent with moderate volume loss. Patchy periventricular and deep white matter hypoattenuation is consistent with mild small vessel ischemic changes. The cerebellar tonsils are well positioned. No acute osseous or soft tissue abnormality. Visualized portions of the orbits are unremarkable. Mild mucoperiosteal thickening in the left maxillary sinus. Remaining visualized paranasal sinuses and mastoid air cells are well-aerated. CT/CT head/brain wo IV con IMPRESSION: 1. No acute intracranial pathology. No significant interval change compared to 08/16/2022. 2. Chronic small vessel ischemic disease and volume loss. Dictated By: Christy Klein Signed By: Electronically signed by Christy Klein 08/20/232036 EXAMINATION: CT soft tissue neck w IV con CLINICAL INFORMATION: right sided swelling, patient had recent right sided dental extraction, now septic with significant right sided facial and neck swelling - concern for abscess. COMPARISON: None TECHNIQUE: Following the administration of 60 mL of Omnipaque 350 intravenous contrast, helical imaging was performed in the axial plane with generation of coronal and sagittal reformatted images. This CT examination was performed using dose optimization techniques as appropriate, variously including the following: * Automated exposure control * Adjustment of mA and/or kV according to patient size (this includes techniques or standardized protocols for targeted exams where dose is matched to indication/reason for exam; i.e. extremities or head) Use of iterative reconstruction technique DLP: 2178 mGy-cm FINDINGS: Absent right mandibular second premolar tooth and second molar. Small mucus retention cyst in the posterior maxillary sinus. Inferior mucoperiosteal thickening in the left maxillary sinus. No acute fracture. Streak artifact from dental amalgam limits evaluation of the soft tissues. Phlegmonous changes are seen within the right premandibular space including small foci of gas. There is marked asymmetric soft tissue edema and inflammatory stranding within the right cheek/premandibular space. No organized fluid collection. The parotid glands are homogeneous in attenuation. Submandibular glands are normal. No contour abnormality or pathologic enhancement is seen within the oral cavity or pharyngeal mucosal space. No retropharyngeal fluid collection is seen. The parapharyngeal fat is preserved. The carotid sheath vasculature opacify normally. No extra mucosal soft tissue mass or fluid collection is seen. No suspicious cervical lymph nodes are identified by size criteria, enhancement characteristics, or morphology. The thyroid gland appears normal. Multifocal nodular opacities in the visualized lung apices. The imaged portions of the brain and orbits appear within normal limits. Mild cervical spondylosis. There are no destructive lesions within the osseous structures. CT/CT soft tissue neck w IV con IMPRESSION: 1. Phlegmonous changes in the right premandibular space with marked asymmetric soft tissue edema and inflammatory stranding. No organized fluid collection. 2. Absent right mandibular second premolar tooth and second molar. 3. Multifocal nodular opacities in the visualized lung apices, likely infectious/inflammatory in etiology. Dictated By: Christy Klein Signed By: Electronically signed by Christy Klein 08/20/[id number] EXAMINATION: CT FACIAL BONES WITHOUT CONTRAST CLINICAL INFORMATION: Swelling COMPARISON: CT head and neck exams from the same day TECHNIQUE: Noncontrast multidetector helical imaging was performed through the facial bones. Coronal and sagittal reformatted images were created. This CT examination was performed using dose optimization techniques as appropriate, variously including the following: *Automated exposure control *Adjustment of mA and/or kV according to patient size (this includes techniques or standardized protocols for targeted exams where dose is matched to indication/reason for exam; i.e. extremities or head) *Use of iterative reconstruction technique DLP: 1432 mGy-cm FINDINGS: There is redemonstration of phlegmonous changes around the right aspect of the mandible as seen on recent soft tissue neck CT. No definite fluid collection is seen, though evaluation for this is limited in the absence of intravenous contrast. Evaluation of this region is also limited due to streak artifact from dental hardware. Redemonstrated sequelae of right-sided mandibular tooth extraction. No acute maxillofacial fractures are seen. Moderate mucosal thickening of the left maxillary sinus. Mild mucosal thickening of the right maxillary sinus. Slight mucosal thickening of the bilateral ethmoid air cells. Frontal and sphenoid sinuses appear well-aerated The mandibular condyles are well-seated in the condylar fossa. Mastoid air cells are well-aerated. The orbits demonstrate a grossly normal appearance bilaterally. The globes are intact, and there are no suspicious findings to suggest retrobulbar hemorrhage. Visualized portions of the brain parenchyma are unremarkable. Degenerative changes noted in the partially visualized cervical spine. CT/CT facial bones wo IV con IMPRESSION: Redemonstration of phlegmonous changes around the right aspect of the mandible as seen on recent soft tissue neck CT. No definite fluid collection is seen, though evaluation for this is limited in the absence of intravenous contrast and streak artifact from dental hardware. Dictated By: Erasmo Eldridge MD Signed By: Electronically signed by Erasmo Eldridge MD 08/20/23 1688 Radiology Impression Discussion of test interpretation with radiology: I have reviewed the radiologist's reading. Independent Historian Clinical information obtained from an independent historian. History obtained from or confirmed by: Spouse (patient's provided additional history and confirmed the history provided by the patient) and EMS (EMS provided additional history and confirmed the history provided by the patient.) Critical Care Time Critical Care Time Critical Care Time: Yes Total Critical Care Time: 81 Attestation: I spent 81 minutes of Critical Care Time with this patient. This does not include time spent on separately reported billable procedures. Discharge Plan Discharge Clinical Impression: Sepsis, Cellulitis of face, Acute hypotension, Hypoxia Patient Disposition: Admitted As Inpatient Print Language: Greenlandic
[2023-08-20] MEDS: 0.9 % Sodium Chloride 2,190 ML 2190 ML IV (18:16)
[2023-08-20 18:24] VITALS: BP 103/49; PULSE 64; RESP 17; O2SAT 95
[2023-08-20 18:24] LABS: Glucose, Whole Blood 117 mg/dL (60-115)
[2023-08-20 18:29] LABS: Basophils Percent Auto 0.1 % (0-2); Hematocrit 34.4 % (42.0-52.0); Hemoglobin 12.1 g/dl (14.0-18.0); INTERNATIONAL NORM RATIO 1.4 (0.9-1.1); Imm Gran Abs Auto 0.11 X10*3/uL (0.00-0.03); Imm Gran Pct Auto 0.8 % (0.0-0.4); Lymphocytes Absolute Auto 0.8 X10*3/uL (1.2-4.9); Lymphocytes Percent Auto 5.9 % (20-40); MANUAL DIFF FLAG SCAN; Mean Corpuscular HGB Conc 35.2 g/dl (31.0-36.0); Mean Corpuscular Hemoglobin 33.9 pg (27.0-33.0); Mean Corpuscular Volume 96.4 fL (80.0-98.0); Mean Platelet Volume 10.4 fL (9.4-12.4); Monocytes Absolute Auto 1.5 X10*3/uL (0.1-1.2); Monocytes Percent Auto 10.9 % (2-11); Neutrophils Absolute Auto 11.6 x10*3/uL (2.0-8.3); Neutrophils Percent Auto 82.3 % (45-73); Platelet Count 153 X10*3/uL (160-400); Prothrombin Time 17.1 SEC (11.1-13.3); Red Blood Count 3.57 X10*6/uL (4.60-5.80); Red Cell Distribution Width 13.7 % (11.0-16.0); SCAN SMEAR FLAG 1; White Blood Count 14.1 X10*3/uL (4.8-10.8)
[2023-08-20 18:32] LABS: Partial Thromboplastin Time 30.7 SEC (26.0-36.8)
[2023-08-20] MEDS: cefTRIAXone sodium 1 GM in 0.9 % Sodium Chloride 50 ML IV (18:34)
[2023-08-20] MEDS: Acetaminophen Supp 650 MG SUPP.RECT PR (18:34)
[2023-08-20 18:47] LABS: Alanine Aminotransferase 13 U/L (0-40); Albumin Level 3.1 g/dL (3.5-5.0); Alkaline Phosphatase 54 U/L (39-117); Anion Gap 13 (12-20); Aspartate Amino Transferase 19 U/L (5-37); Bilirubin Total 1.8 mg/dL (0.0-1.0); Blood Urea Nitrogen 24 mg/dL (9-16); C Reactive Protein 22.82 mg/dL (< or = 0.50); Calcium 8.6 mg/dL (8.4-10.2); Carbon Dioxide 20 mmol/L (22-29); Chloride 106 mmol/L (96-108); Creatinine Clr Calc Pharmacy 49.5; Estimated Glomerular Filt Rate 45; Glucose Random 112 mg/dL (60-115); Magnesium 1.9 mg/dL (1.6-2.6); Potassium 4.7 mmol/L (3.3-5.1); Sodium 134 mmol/L (135-145); Total Protein 6.8 g/dL (6.5-8.0)
[2023-08-20 18:48] LABS: Troponin-I High Sensitivity 22.2 ng/L (<3.5-35.0)
[2023-08-20 18:54] LABS: SLIDE REVIEW VERIFIED
[2023-08-20 19:06] LABS: Influenza A PCR NEGATIVE (Negative); Influenza B PCR NEGATIVE (Negative); Resp Syncy Virus RNA Qual PCR NEGATIVE (Negative); SARS COV2 PCR INHOUSE NEGATIVE (Negative)
[2023-08-20 19:12] LABS: Erythrocyte Sedimentation Rate 59 MM/HR (0-15)
[2023-08-20] MEDS: iohexoL 350 MG/ML 100 ML INFUS..BTL 60 ML IV (19:24)
[2023-08-20 20:09] VITALS: BP 78/45; PULSE 66; RESP 16; O2SAT 98
--- NOTE | 2023-08-20 20:10 | PC.NURSE ---
Pt awake and alert. Fluids completed, hypotensive 78/45 [address] Mercedes and Dr Chiu aware. Pt encouraged to provide urine sample. Dr Chiu at bedside.
[2023-08-20] MEDS: Piperacillin Sodium/Tazobactam 3.375 GM in 0.9 % Sodium Chloride 50 ML IV (20:19)
[2023-08-20 20:46] VITALS: BP 97/39; PULSE 61; RESP 16; O2SAT 97
[2023-08-20 20:57] LABS: Appearance Urine Cloudy; Color Urine Dark Yellow; Glucose Urine UA Negative (Negative); Leukocyte Esterase Urine Small (1+) (Negative); Nitrite Urine Negative (Negative); PH 6.5 (5.0-9.0); Specific Gravity - Urine 1.025 (1.005-1.025); UMIC TRIGGER UACC YES; Urine Blood Large (3+) (Negative); Urine Ketones Trace mg/dL (Negative); Urine Protein Trace mg/dL (Neg-Trace)
[2023-08-20 21:28] LABS: Bacteria Urine None Seen (None Seen); Hyaline Casts Urine 0-2 /LPF (0-2); RBC Urine >20 /HPF (0-2); Squamous Epithelial Cell Urine 0-2 /HPF (0-2); UACC Culture Trigger YES
[2023-08-20] MEDS: 0.9 % Sodium Chloride 500 ML IV (21:58)
[2023-08-20] MEDS: Albumin Human 25 % 100 ML 133.33 ML IV ×2 (21:58→23:04)
[2023-08-20] MEDS: vancomycin/NS 2,000 MG/500 ML PLAST..BAG 250 MG IV (21:59)
[2023-08-20 23:06] VITALS: BP 114/81; PULSE 54; O2SAT 100
[2023-08-21] VITALS (21 sets, daily range): BP systolic 88–117; BP diastolic 41–68; PULSE 54–67; RESP 14–25; TEMP 36.1–36.8; O2SAT 90–100; BMI 34.0
--- NOTE | 2023-08-21 | ECG_ITS ---
Test Reason : bigeminy Blood Pressure : / mmHG Vent. Rate : 057 BPM Atrial Rate : 057 BPM P-R Int : 184 ms QRS Dur : 108 ms QT Int : 458 ms P-R-T Axes : 000 -24 005 degrees QTc Int : 445 ms Sinus bradycardia with frequent Premature ventricular complexes in a pattern of bigeminy Low voltage QRS Nonspecific ST and T wave abnormality Abnormal ECG When compared with ECG of 20-AUG-2023 17:44, No significant change was found Referred By: Bola Ayoub Electronically Signed By:CASSIDY MITCHELL MD
--- NOTE | 2023-08-21 00:57 | PC.NURSE ---
Nurse to nurse report give to JOYCE George. Pt being transferred to the ICU. Pt and family at bedside aware of plan of care.
[2023-08-21] MEDS: Albumin Human 25 % 100 ML IV ×4 (01:21→20:52)
--- NOTE | 2023-08-21 01:28 | P.HPCC_ITS ---
History of Present Illness Date of Service: 08/21/23 Attending physician on admission: Anibal Bray Chief Complaint: AMS The patient is a 78-year-old male with a past medical history of atrial flutter s/p? cardioversion on Eliquis, coronary artery disease, sarcoidosis of the lung,? COPD / asthma overlap syndrome, and recent tooth x3 tooth extraction on 08/14 who presented to the emergency department via? ambulance for evaluation of altered mental status and right-sided facial swelling. According to his patient? started to become confused during the morning,? which kept worsening throughout the day.? She noted the his facial swelling was also increased in size since his tooth extraction. She also reported patient not been eating or drinking as much since the procedure. He had 3 episodes of diarrhea 2 days ago, no blood, has been taking antidiarrheals with good effect. He was not on any antibiotics pre- or post-extraction, but his called dentist this morning about the swelling and dentist prescribed augmentin, he has had one dose. ? On arrival to the emergency department, patient was satting 88% on room air, T high 102.2, tachypneic to 26, and blood pressure 90/42. Laboratory data was significant for WBC 14.1, platelets 153,? serum sodium 134, serum bicarb 20, BUN 24, creatinine 1.50 ?Imaging:? Face/ soft tissue neck CT: Phlegmonous changes in the right premandibular space with marked, asymmetric soft tissue edema and inflammatory stranding. No organized fluid collection.Absent right mandibular second premolar tooth and second molar. Head CT:? no acute findings Abdominal ultrasound: Mild hepatic steatosis. Chest x-ray:? no significant changes? when compared to previous chest x-ray ? ED course:? Patient received 30 mL/kg fluid bolus, 200 mL of albumin, ceftriaxone 1 g, Zosyn 3.375, vancomycin and Tylenol Review of Systems 2 Review of Systems: PER HPI [facility] Past Medical History Medical History Pulmonary nodules Chronic restrictive lung disease Chronic renal disease Nonsustained ventricular tachycardia PVCs (premature ventricular contractions) CAD (coronary artery disease) Dyspnea Chronic allergic rhinitis Asthma Sarcoidosis Family History Family History Other Asthma Surgical History Surgical History Stented coronary artery Social History Social History Household Members: Spouse Housing: House Do you presently have visiting nurse or other home services: No Patient Tobacco Use Status: Never used Tobacco Tobacco use type: Cigar Smoked in Last 30 Days: No e-Cigarette/Vaping Use: Never Used Second Hand Smoke Exposure: No Use of substances other than those prescribed or required for medical reasons: No Currently Displaying Signs/Symptoms of Drug Intoxication Withdrawal: No Any prior treatment program specific to substance use: No Have you been hit, kicked, punched, or otherwise hurt by someone within the past year? If so, by whom?: No Do you feel safe in your current relationship?: Yes Is there a partner from a previous relationship who is making you feel unsafe now?: No Are you made to feel afraid or neglected: No Advance Directives: No Advance Directives Information Provided: Yes Do you have a plan to hurt others: No Plan Recently lost weight without trying: Yes How much weight loss: 2-13 pounds Eating poorly because of decreased appetite: Yes Nutrition screen score: 4 Nutrition Risks: Dental problems Poor oral hygiene: No service: Yes Meds Allergies Allergy/AdvReac Type Severity Reaction Status Date / Time gadobenic acid [Multihance] Allergy Severe Rash Verified 08/20/23 17:46 azithromycin Allergy Intermediate HIVES Verified 08/20/23 17:46 [From ZITHROMAX Z-JOYCE] Iodinated Contrast Media Allergy Intermediate HIVES Verified 08/20/23 17:46 [IV CONTRAST] Penicillins Allergy Mild RASH Verified 08/20/23 17:46 Active Medications: Current Medications Albumin Human (Kedbumin 25 %) 100 mls @ 100 mls/hr IV Q6H [facility] Stop: 08/21/23 19:59 Last Admin: 08/21/23 01:21 Dose: 100 mls/hr Piperacillin Sod/Tazobactam (Sod 4.5 gm/ Sodium Chloride) 100 mls @ 200 mls/hr IV Q8H [facility] Home Medications ?Medication ?Instructions ?Recorded ?Confirmed ?Last Taken ?Type allopurinol 100 mg tablet 100 mg PO DAILY 04/21/20 08/21/23 08/19/23 History montelukast 10 mg tablet 10 mg PO DAILY 04/21/20 08/21/23 08/19/23 History potassium citrate 10 mEq (1,080 10 meq PO BID 02/07/23 08/21/23 08/19/23 History mg) tablet,extended release finasteride 5 mg tablet 5 mg PO DAILY 06/29/23 08/21/23 08/19/23 History azelastine 137 mcg-fluticasone 50 1 spray intranasal BID PRN Allergy 08/21/23 08/21/23 Unknown History mcg/spray nasal spray Symptoms brimonidine 0.1 % eye drops 1 drp ophthalmic (eye) BID 08/21/23 08/21/23 08/20/23 History (Alphagan P) dronedarone 400 mg tablet (Multaq) 400 mg PO BID 08/21/23 08/21/23 08/20/23 History Physical Exam 2 Vital Signs: Vital Signs: Last Vital Signs Temp 102.2 F H 08/20/23 17:44 Pulse 60 08/21/23 00:06 Resp 15 08/21/23 00:06 BP 97/55 L 08/21/23 00:06 Pulse Ox 100 08/21/23 00:06 O2 Del Method Nasal Cannula 08/21/23 00:06 O2 Flow Rate 3 08/21/23 00:06 BMI result Body Mass Index 33.6 ?General:? Alert oriented x3 no acute distress.? Speaking full sentences. Following all commands. ?HEENT:? Head is normocephalic, Right facial swelling, pupils equal round reactive to light accommodation bilaterally.? Extraocular movements appear intact.? Buccal mucosa is moist, Neck is supple without lymphadenopathy. ?Cardiac:? sinus harper, no murmurs ?Pulmonary:? Clear to auscultation, no wheezes, rales or rhonchi. ?Abdomen:? ?Abdomen soft, non-tender, non-distended. Normal bowel sounds. No pulsatile mass. No hepatosplenomegaly. ?Musculoskeletal:? Moving all 4 extremities upon request a major joints, there is no crepitus or tenderness.? The strength is 5/5 bilaterally and throughout all 4 extremities.? Gait not assessed at this point. ?Neurologic:? cranial nerves 2-12 are grossly intact.? No focal deficits noted.Motor strength as above.?? ?Skin:? Right facial swelling, scattered bruises. No ulcers. Vascular:? 2+ pulses upper and lower extremities distally.? Results Labs 08/22/23 07:46 08/22/23 07:46 Labs: Laboratory Results - last 24 hr 08/20/23 08/20/23 08/20/23 17:57 18:10 20:49 MCV 96.4 MCH 33.9 H MCHC 35.2 RDW 13.7 Plt Count 153 L MPV 10.4 Immature Gran % (Auto) 0.8 H Neut % (Auto) 82.3 H Lymph % (Auto) 5.9 L [place] % (Auto) 10.9 Eos % (Auto) 0.0 Baso % (Auto) 0.1 Lymph # (Auto) 0.8 L [place] # (Auto) 1.5 H Eos # (Auto) 0.0 Baso # (Auto) 0.0 Abs Immat Gran (auto) 0.11 H Absolute Neuts (auto) 11.6 H Absolute Nucleated RBC 0.000 Nucleated RBC % (auto) 0.0 Smear Tech's Comments VERIFIED ESR 59 H PT 17.1 H INR 1.4 H APTT 30.7 Anion Gap 13 Estim Creat Clear Calc 49.5 Estimated GFR 45 POC Glucose 117 H Random Glucose 112 Lactic Acid 1.0 Calcium 8.6 D Magnesium 1.9 Total Bilirubin 1.8 H AST 19 ALT 13 Alkaline Phosphatase 54 Troponin I High Sens 22.2 C-Reactive Protein 22.82 H Total Protein 6.8 Albumin 3.1 L Urine Color Dark Yellow Urine Appearance Cloudy Urine pH 6.5 Ur Specific [place] 1.025 Urine Protein Trace Urine Glucose (UA) Negative Urine Ketones Trace Urine Blood Large (3+) H Urine Nitrite Negative Ur Leukocyte Esterase Small (1+) H Urine RBC >20 H Urine WBC 6-10 Ur Squamous Epith Cells 0-2 Urine Bacteria None Seen Hyaline Casts 0-2 Influenza Type A (PCR) NEGATIVE Influenza Type B (PCR) NEGATIVE RSV RNA Qual (PCR) NEGATIVE SARS-CoV-2 RNA (RT-PCR) NEGATIVE Imaging Radiologist's Impressions: Impressions Chest X-Ray 08/20/23 18:44 IMPRESSION: 1. Bilateral pulmonary nodules are better appreciated on prior cross-sectional imaging. 2. Bilateral low lung volume. 3. Interstitial prominence. 4. Trace bilateral pleural effusions. Abdomen Ultrasound 08/20/23 19:00 IMPRESSION: Mild hepatic steatosis. Head CT 08/20/23 19:30 IMPRESSION: 1. No acute intracranial pathology. No significant interval change compared to 08/16/2022. 2. Chronic small vessel ischemic disease and volume loss. Soft Tissue Neck CT 08/20/23 19:31 IMPRESSION: 1. Phlegmonous changes in the right premandibular space with marked asymmetric soft tissue edema and inflammatory stranding. No organized fluid collection. 2. Absent right mandibular second premolar tooth and second molar. 3. Multifocal nodular opacities in the visualized lung apices, likely infectious/inflammatory in etiology. Face CT 08/20/23 20:43 IMPRESSION: Redemonstration of phlegmonous changes around the right aspect of the mandible as seen on recent soft tissue neck CT. No definite fluid collection is seen, though evaluation for this is limited in the absence of intravenous contrast and streak artifact from dental hardware. Assessment and Plan (1) Acute hypotension: Status: Acute (2) Sepsis: Status: Acute (3) Cellulitis of face: Status: Acute (4) Acute hypoxic respiratory failure: Status: Acute (5) ETELVINA (acute kidney injury): Status: Acute Plan 78-year-old male with history of atrial flutter s/p? cardioversion on Eliquis, coronary artery disease, sarcoidosis of the lung,? COPD / asthma overlap syndrome, and recent tooth x3 tooth extraction on 08/14? now admitted to ICU due to sepsis likely from facial cellulitis and hypotension Neuro:? ?Altered mental status: ? according to patient was? confused,? worsening throughout the day.? But since arrival to the emergency department patient is back to baseline.? This is likely related to infection.? resolved Cardiac:?? ?Sepsis:? no evidence of septic shock,? patient?s lactic is normal.? Sources likely from facial cellulitis/tooth infection from extraction,? no evidence of abscess in the CT scan.? He was covered with ceftriaxone, vanco and Zosyn.? We will continue Zosyn.? ?Hypotension: ? as stated before I do not believe this is septic shock,? patient does have underlying history of hypertension.? Hypotension likely related to infection,? he received appropriate fluid hydration.? On my assessment patient?s blood pressure are soft but stable.? He is mentating.? Will hold off on starting pressors.? Hold blood pressure medications Pulmonary:? ??No acute issues Renal:?? ?ETELVINA- ? most likely related to hypoperfusion, nonoliguric.? Received fluids in ED.? Continue to check renal induces and urine output ?Diarrhea:? patient?s reported diarrhea the past couple of days, ? serum bicarb is slightly low,? this is likely the cause. ? Due to recent antibiotic exposure prior to the procedure, Will send C diff Endo:?? ?No acute issues? GI:? ?No acute issues ??ID:?? Facial cellulitis:? No evidence of tooth abcess from recent tooth extractions in CT. Will cont Sozyn? until blood cultures resulted.? Heme/Onc:? No acute issues. Psych:? No acute issues. Misc: no acute issues Prophylaxis:? pneumo boots,? Resume eliquis when patient is able to eat? Code? status:? FULL CODE ? Critical care time: x 60 min of critical care time? ?Case discussed with attending Dr Bray?
[2023-08-21] MEDS: Piperacillin Sodium/Tazobactam 4.5 GM in 0.9 % Sodium Chloride 100 ML IV ×3 (04:04→20:51)
[2023-08-21 05:22] LABS: VBG Base Excess -0.9 mmol/L; VBG HCO3 23 mmol/L (22-26); VBG pCO2 37 mmHg; VBG pO2 26 mmHg
[2023-08-21 05:23] LABS: MANUAL DIFF FLAG NO
[2023-08-21 05:25] LABS: Basophils Percent Auto 0.3 % (0-2); Eosinophils Percent Auto 0.3 % (0-4); Hematocrit 29.3 % (42.0-52.0); Hemoglobin 9.6 g/dl (14.0-18.0); Imm Gran Abs Auto 0.07 X10*3/uL (0.00-0.03); Imm Gran Pct Auto 0.7 % (0.0-0.4); Lymphocytes Percent Auto 10.3 % (20-40); Mean Corpuscular HGB Conc 32.8 g/dl (31.0-36.0); Mean Corpuscular Hemoglobin 33.3 pg (27.0-33.0); Mean Corpuscular Volume 101.7 fL (80.0-98.0); Mean Platelet Volume 9.8 fL (9.4-12.4); Monocytes Percent Auto 10.1 % (2-11); Neutrophils Absolute Auto 7.9 x10*3/uL (2.0-8.3); Neutrophils Percent Auto 78.3 % (45-73); Platelet Count 103 X10*3/uL (160-400); Red Blood Count 2.88 X10*6/uL (4.60-5.80); Red Cell Distribution Width 13.7 % (11.0-16.0)
[2023-08-21 05:43] LABS: Alanine Aminotransferase 10 U/L (0-40); Albumin Level 3.7 g/dL (3.5-5.0); Alkaline Phosphatase 44 U/L (39-117); Anion Gap 12 (12-20); Aspartate Amino Transferase 13 U/L (5-37); Bilirubin Total 1.8 mg/dL (0.0-1.0); Blood Urea Nitrogen 22 mg/dL (9-16); Calcium 8.5 mg/dL (8.4-10.2); Carbon Dioxide 21 mmol/L (22-29); Chloride 109 mmol/L (96-108); Creatinine Clr Calc Pharmacy 51.1; Estimated Glomerular Filt Rate 47; Glucose Random 102 mg/dL (60-115); Magnesium 1.9 mg/dL (1.6-2.6); Phosphorus 2.6 mg/dL (2.7-4.5); Potassium 4.3 mmol/L (3.3-5.1); Sodium 138 mmol/L (135-145); Total Protein 6.3 g/dL (6.5-8.0)
[2023-08-21 06:16] LABS: Venous Blood Gas Refer to POC result
[2023-08-21] MEDS: Sodium,Potassium Phosphates POWD.PACK 1 PACKET PO (08:22)
[2023-08-21] MEDS: Finasteride 5 MG TABLET PO (08:23)
[2023-08-21] MEDS: Montelukast Sodium 10 MG TABLET PO (08:23)
[2023-08-21] MEDS: Apixaban 5 MG TABLET PO ×2 (08:24→20:52)
--- NOTE | 2023-08-21 09:57 | MHC.CM.PN ---
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 ANTIC PT WILL NEED PT EVAL FOR DISPO.
[2023-08-21 10:34] LABS: Hematocrit 30.2 % (42.0-52.0); Hemoglobin 9.8 g/dl (14.0-18.0); Mean Corpuscular HGB Conc 32.5 g/dl (31.0-36.0); Mean Corpuscular Hemoglobin 33.1 pg (27.0-33.0); Mean Platelet Volume 10.9 fL (9.4-12.4); Platelet Count 113 X10*3/uL (160-400); Red Blood Count 2.96 X10*6/uL (4.60-5.80); Red Cell Distribution Width 13.7 % (11.0-16.0); White Blood Count 10.3 X10*3/uL (4.8-10.8)
[2023-08-21] MEDS: Tiotropium Bromide 2.5 mcg 1 PUFF/2.5 MCG MIST.INHAL 2 PUFF INHALE (10:44)
[2023-08-21] MEDS: 0.9 % Sodium Chloride 500 ML IV (10:53)
--- NOTE | 2023-08-21 14:15 | PHA.MEDREC ---
Pharmacy Consult ? Medication Reconciliation Pharmacy has completed the medication reconciliation. Spoke to patient's and updated med rec done by nursing. She said his last dose of eliquis was on monday (due to recent surgery), alphagan is 1 drop in both eyes BID, and potassium citrate 10 meq bid.
--- NOTE | 2023-08-21 17:44 | PM.EVENT ---
Event Note Date of Service: 08/21/23 Event Note: Discussed case with ICU attending provider. Patient admitted for altered mental status and hypotension. Empirically started on antibiotics for possible cellulitis to left cheek secondary to tooth extraction. Time Spent With Patient Time: Total time managing care of this patient today ____ minutes.
[2023-08-21] MEDS: Brimonidine Tartrate 0.2% Oph 5 ML BOTTLE 1 DROP EYE-BOTH (21:06)
[2023-08-21 22:37] LABS: CDiff Gene PCR NEGATIVE (Negative)
[2023-08-22] VITALS (13 sets, daily range): BP systolic 102–123; BP diastolic 54–66; PULSE 58–91; RESP 16–20; TEMP 36.4–37.1; O2SAT 86–98
[2023-08-22] MEDS: Piperacillin Sodium/Tazobactam 4.5 GM in 0.9 % Sodium Chloride 100 ML IV ×3 (03:33→21:53)
[2023-08-22] MEDS: Dronedarone HCl 400 MG TABLET PO ×2 (06:26→21:59)
--- NOTE | 2023-08-22 06:28 | PC.NURSE ---
at 06:11 patient had a run of VTAC per threat monitoring analyst. patient reports feeling asymptomatic. vitals taken and stable. Dr. Antonio notified. STAT labs ordered and ordered to administer multaq 400 po. administered at 06:26. patient resting in bed with no complaints. ``
[2023-08-22 08:06] LABS: Hematocrit 31.3 % (42.0-52.0); Hemoglobin 10.1 g/dl (14.0-18.0); Mean Corpuscular HGB Conc 32.3 g/dl (31.0-36.0); Mean Corpuscular Hemoglobin 33.4 pg (27.0-33.0); Mean Corpuscular Volume 103.6 fL (80.0-98.0); PLT CLUMP 1; Red Blood Count 3.02 X10*6/uL (4.60-5.80); Red Cell Distribution Width 13.6 % (11.0-16.0)
[2023-08-22 08:20] LABS: Anion Gap 13 (12-20); Blood Urea Nitrogen 27 mg/dL (9-16); Calcium 9.2 mg/dL (8.4-10.2); Carbon Dioxide 18 mmol/L (22-29); Chloride 113 mmol/L (96-108); Creatinine Clr Calc Pharmacy 49.1; Estimated Glomerular Filt Rate 45; Glucose Random 92 mg/dL (60-115); Magnesium 2.1 mg/dL (1.6-2.6); Potassium 3.8 mmol/L (3.3-5.1); Sodium 140 mmol/L (135-145)
[2023-08-22 08:55] LABS: White Blood Count 8.4 X10*3/uL (4.8-10.8)
[2023-08-22 08:56] LABS: Platelet Count 108 X10*3/uL (160-400)
[2023-08-22] MEDS: Tiotropium Bromide 2.5 mcg 1 PUFF/2.5 MCG MIST.INHAL 2 PUFF INHALE (09:01)
[2023-08-22] MEDS: allopurinoL 100 MG TABLET PO (09:35)
[2023-08-22] MEDS: Montelukast Sodium 10 MG TABLET PO (09:35)
[2023-08-22] MEDS: Brimonidine Tartrate 0.2% Oph 5 ML BOTTLE 1 DROP EYE-BOTH (09:35)
[2023-08-22] MEDS: Apixaban 5 MG TABLET PO ×2 (09:35→21:59)
[2023-08-22] MEDS: Finasteride 5 MG TABLET PO (09:35)
--- NOTE | 2023-08-22 10:00 | PC.NURSE ---
02 sat 83% while ambulating on room air to doorway and back to recliner. Mild SOB noted. Patient oob to recliner, at rest 93% on room air.
--- NOTE | 2023-08-22 11:38 | P.PNIM_ITS ---
Subjective Subjective Date of Service: 08/22/23 Review of Systems Follow up ICU transfer, hypotension, facial cellulitis from tooth extraction feeling better but still with edema to right side of face hypoxia with ambulation Physical Exam 2 Vital Signs: Vital Signs: Last Vital Signs Temp 97.5 F 08/22/23 08:15 Pulse 63 08/22/23 08:15 Resp 20 08/22/23 08:15 BP 113/61 08/22/23 08:15 Pulse Ox 93 08/22/23 10:00 O2 Del Method Room Air 08/22/23 10:00 O2 Flow Rate 2 08/22/23 06:18 Oxygen Flow Rate 2 08/21/23 02:16 BMI result Body Mass Index 34.0 Appearing in no acute distress lung sounds are clear to auscultation heart regular rate rhythm, clear S1, S2 positive bowel sounds, abdomen is soft, nontender neuro patient is alert x3, no focal deficits Objective Data Active Medications Albuterol Sulfate (Albuterol Sulfate (0.083%) 2.5 Mg/3 Ml Vial.Neb) 2.5 mg INHALE Q4H PRN PRN Reason: Shortness of Breath/Wheezing Allopurinol (Allopurinol 100 Mg Tablet) 100 mg PO DAILY [facility] Last Admin: 08/22/23 09:35 Dose: 100 mg Documented By: JOSÉ Apixaban (Apixaban 5 Mg Tablet) 5 mg PO BID [facility] Last Admin: 08/22/23 09:35 Dose: 5 mg Documented By: JOSÉ Brimonidine Tartrate (Brimonidine Tartrate 0.2% Oph 5 Ml Bottle) 1 drop EYE- BOTH BID [facility] Last Admin: 08/22/23 09:35 Dose: 1 drop Documented By: JOSÉ Dronedarone (Dronedarone Hcl 400 Mg Tablet) 400 mg PO BID [facility] Last Admin: 08/22/23 06:26 Dose: 400 mg Documented By: SILVIANO Comments: per Dr. Antonio Finasteride (Finasteride 5 Mg Tablet) 5 mg PO DAILY [facility] Last Admin: 08/22/23 09:35 Dose: 5 mg Documented By: JOSÉ Piperacillin Sod/Tazobactam (Sod 4.5 gm/ Sodium Chloride) 100 mls @ 200 mls/hr IV Q8H [facility] Last Infusion: 08/22/23 04:10 Dose: Infused Documented By: SILVIANO Montelukast Sodium (Montelukast Sodium 10 Mg Tablet) 10 mg PO DAILY [facility] Last Admin: 08/22/23 09:35 Dose: 10 mg Documented By: JOSÉ Patient Own ( Mometasone- Formoterol 200-5 Mcg /Actuation Hfa Aerosol Inhaler) 2 puff INHALE BID [facility] Last Admin: 08/22/23 08:09 Dose: 2 puff Documented By: KRISTIN Tiotropium [place] (Tiotropium [place] 2.5 Mcg 1 Puff/2.5 Mcg Mist.Inhal) 2 puff INHALE RDAILY [facility] Last Admin: 08/22/23 09:01 Dose: 2 puff Documented By: KRISTIN Labs 08/22/23 07:46 08/22/23 07:46 Labs: Laboratory Results - last 24 hr 08/21/23 08/22/23 15:51 07:46 MCV 103.6 H MCH 33.4 H MCHC 32.3 RDW 13.6 Plt Count 108 L MPV Not Reportable Absolute Nucleated RBC 0.000 Nucleated RBC % (auto) 0.0 Anion Gap 13 Estim Creat Clear Calc 49.1 Estimated GFR 45 Random Glucose 92 Calcium 9.2 D Phosphorus 3.0 Magnesium 2.1 C. difficile Tox B Gene NEGATIVE Microbiology Microbiology Results: Microbiology 08/20/23 Unknown Urine Culture - Final Urine clean catch - Urine lopez top No growth. 08/20/23 18:31 Blood Culture - Preliminary Blood - Venous No growth after 24 hours. 08/20/23 18:10 Blood Culture - Preliminary Blood - Venous No growth after 24 hours. Assessment and Plan (1) Acute hypoxic respiratory failure: Status: Acute Plan 78 year old man s/p tooth extraction x4 presented to the ED for right sided facial swelling that started 08/17/23 along with some confusion that started the morning of admission. The patient was noted to be hypotensive and septic and was transferred to the ICU. Patient did not require pressors. reported that patient's blood pressures are always on the low side. Patient was transferred to medical floor on 08/21/2023 Acute hypoxic respiratory failure secondary to CAP Ambulated and oxygen saturation went down to 88% Chest x-ray slowing worsening bilateral pneumonia continue suplemental oxygen to keep o2 sat>90% continue zosyn, doxycycline added Facial cellulitis Secondary to tooth extraction Face CT showed phlegmonous changes around the right aspect of the mandible, no definite fluid collection. Blood cultures negative Continue Zosyn will need to follow up with o/p dental surgeon Sepsis secondary to facial cellulitis Status post tooth extraction Sepsis resolved Hypotension. Stable blood pressure History of atrial flutter, paroxysmal Continue Multaq, Eliquis History of coronary artery disease Bisoprolol was on hold due to hypotension, we will restart and monitor blood pressure BPH Continue finasteride Asthma no exacerbation albuterol as needed DVT prophylaxis on Eliquis Attending Dr. Mayo Full code Continue hospitalization for treatment of facial cellulitis requiring IV antibiotics and community-acquired pneumonia with hypoxia Quality Stroke Does the patient have a stroke diagnosis?: No VTE Prior VTE?: No VTE Risk Level:: Medical - moderate - high VTE Device Contraindication: N/A - Device Ordered VTE Drug Contraindication: N/A - Med Ordered
[2023-08-22] MEDS: Doxycycline Hyclate 100 MG in 0.9 % Sodium Chloride 250 ML 166.67 MG IV ×2 (13:01→22:31)
--- NOTE | 2023-08-22 14:43 | MHC.CM.PN ---
A new HCP has been documented. Copies were made and given to patient. It has been scanned into the EMR.
--- NOTE | 2023-08-22 14:53 | P.CDIM_ITS ---
PROVIDER RESPONSE TEXT: To clarify, the appropriate diagnosis supported by the clinical indicators: Acute on chronic renal injury (CKD): 3a QUERY TEXT: PHYSICIAN'S DOCUMENTATION REQUEST Date of Query: 08/22/2023 12:19 PM EDT Patient Name: Erasmo Quevedo Admit Date: 08/21/2023 Dear Pat Patricia, A review of the medical record indicates additional documentation may be needed. Please review below and update the documentation accordingly. Clinical Indicators: ICU H&P dated 08/20 - PMH: Chronic renal disease Plan: ETELVINA, most likely related to hypoperfusion, nonoliguric. Received fluids in ED. Continue to check renal indices and urine output. BUN CR: 1.46 1.52 Please clarify which of the following accurately represents the patient's stage of the noted CKD: Acute on chronic renal injury (CKD) Stage 1, 2, 3a, 3b, 4 etc if known Other (explain) Clinically unable to determine (explain) Thank you, Herminia Johnson, CCS, CDIS Use of terms such as suspected, likely, concern for, or probable (associated with a specific diagnosi s that is being evaluated, monitored, or treated as if it exists) are acceptable and can be coded in the inpatient se tting, when documented at the time of discharge. Please use your independent medical judgment in providing your response. THIS QUERY IS PART OF THE PERMANENT MEDICAL RECORD
[2023-08-22] MEDS: Losartan Potassium 25 MG TABLET PO (21:59)
[2023-08-23] VITALS (10 sets, daily range): BP systolic 103–127; BP diastolic 51–68; PULSE 56–64; RESP 18–20; TEMP 35.6–37; O2SAT 90–98; BMI 34.2
[2023-08-23] MEDS: Piperacillin Sodium/Tazobactam 4.5 GM in 0.9 % Sodium Chloride 100 ML IV ×3 (04:36→22:06)
[2023-08-23] MEDS: Tiotropium Bromide 2.5 mcg 1 PUFF/2.5 MCG MIST.INHAL 2 PUFF INHALE (08:06)
[2023-08-23] MEDS: Apixaban 5 MG TABLET PO ×2 (08:37→22:05)
[2023-08-23] MEDS: Montelukast Sodium 10 MG TABLET PO (08:37)
[2023-08-23] MEDS: allopurinoL 100 MG TABLET PO (08:37)
[2023-08-23] MEDS: Bisoprolol Fumarate 5 MG TABLET PO (08:37)
[2023-08-23] MEDS: Finasteride 5 MG TABLET PO (08:37)
[2023-08-23] MEDS: Dronedarone HCl 400 MG TABLET PO ×2 (08:37→22:05)
[2023-08-23] MEDS: Brimonidine Tartrate 0.2% Oph 5 ML BOTTLE 1 DROP EYE-BOTH ×2 (08:38→22:13)
[2023-08-23 08:42] LABS: Hematocrit 31.8 % (42.0-52.0); Hemoglobin 10.7 g/dl (14.0-18.0); Mean Corpuscular HGB Conc 33.6 g/dl (31.0-36.0); Mean Corpuscular Hemoglobin 33.9 pg (27.0-33.0); Mean Corpuscular Volume 100.6 fL (80.0-98.0); Mean Platelet Volume 10.5 fL (9.4-12.4); Platelet Count 143 X10*3/uL (160-400); Red Blood Count 3.16 X10*6/uL (4.60-5.80); Red Cell Distribution Width 13.7 % (11.0-16.0); White Blood Count 7.5 X10*3/uL (4.8-10.8)
[2023-08-23] MEDS: Doxycycline Hyclate 100 MG in 0.9 % Sodium Chloride 250 ML 166.7 MG IV (08:48)
[2023-08-23 08:53] LABS: Anion Gap 13 (12-20); Blood Urea Nitrogen 27 mg/dL (9-16); Calcium 9.2 mg/dL (8.4-10.2); Carbon Dioxide 20 mmol/L (22-29); Chloride 113 mmol/L (96-108); Estimated Glomerular Filt Rate 43; Glucose Random 97 mg/dL (60-115); Potassium 3.5 mmol/L (3.3-5.1); Sodium 142 mmol/L (135-145)
--- NOTE | 2023-08-23 11:33 | MHC.SL.SWA ---
Dysphasia Diet Status: UPGRADE solids Liquid Consistency and Strategies for Safe Swallow: Liquid Intake Recommendation: Thin Solid Food Consistency: Dietary Recommendations: Grnd/Mech Altered (NDD2) Oral Medication Intake: Whole with Liquid Please contact the pharmacy regarding appropriate crushable or liquid drug formulations that are available whenever modified delivery is recommended. Compensatory Strategies and Precautions to be Taken for Safe Swallow: Sitting Upright (90 deg) Alternate Liquids/Solids Supervision While Eating and Drinking for Safe Swallow: Total Supervision (1:1) Recommendation for Speech: Inpatient Speech Therapy Comment: Recommend limit UPGRADE to GROUND/MECH ALTERED (NDD2) solids at this time d/t reported discomfort w/ jaw. Continue w/ THIN liquids and pills WHOLE w/ LIQUID. Recommend pt encouraged to drink from cup to help clear any oral residue. Recommend FULL SUPERVISION (if is not present) per request of pt's to ensure toleration of diet and to encourage pt to eat. CS ASSOCIATE to follow to monitor toleration of diet and upgrade if/when warranted. Pt's baseline is regular solids prior to dental surgery. Digital Media Specialist Clinican/Clinical Fellow: No Supervisory Statement: I have reviewed and agree with the student/clinical fellow's documentation: N/A Speech Language Pathologist: Lakeisha Pompa M.A., CCC-CS ASSOCIATE
[2023-08-23] MEDS: Albuterol Sulfate (0.083%) 2.5 MG/3 ML VIAL.NEB INHALE (12:12)
--- NOTE | 2023-08-23 13:17 | MHC.CM.PN ---
EMR reviewed and per MD rounds, pt is not medically cleared for discharge due to management of facial cellulitis requiring IV antibiotics and community-acquired pneumonia with hypoxia.
--- NOTE | 2023-08-23 13:31 | HO.PM.IMPN ---
Subjective Subjective Date of Service: 08/23/23 Interval History: Seen and examined this morning Follow-up for facial cellulitis secondary to tooth infection and bilateral pneumonia Still reporting shortness of breath Review of Systems Review of Systems: Yes all other systems are reviewed and are negative Constitutional Constitutional: Denies chills and Denies fever(s) Cardiovascular Cardiovascular: Denies chest pain and Reports dyspnea Respiratory Respiratory: Reports dyspnea Gastrointestinal Gastrointestinal: Denies abdominal pain Physical Exam Vital Signs: Vital Signs: Last Vital Signs Temp 96.5 F L 08/23/23 12:00 Pulse 62 08/23/23 12:17 Resp 18 08/23/23 12:17 BP 118/60 08/23/23 12:00 Pulse Ox 97 08/23/23 12:00 O2 Del Method Nasal Cannula 08/23/23 12:00 O2 Flow Rate 2 08/23/23 12:00 Oxygen Flow Rate 2 08/21/23 02:16 BMI result Body Mass Index 34.2 Const: General: cooperative, comfortable, no acute distress, alert and awake Nutritional Appearance: overweight Resp: Other: Coarse breath sounds, no wheezing Effort & Inspection: normal respiratory effort, able to speak in complete sentences, no respiratory distress and no use of accessory muscles Cardio: Rate: regular rate GI: Inspection: No distended Palpation (GI): Soft to palpation and nontender Skin: Other: right side face swelling, no erythema Neuro: Other: grossly nonfocal Objective Data Active Medications Albuterol Sulfate (Albuterol Sulfate (0.083%) 2.5 Mg/3 Ml Vial.Neb) 2.5 mg INHALE Q4H PRN PRN Reason: Shortness of Breath/Wheezing Last Admin: 08/23/23 12:12 Dose: 2.5 mg Documented By: KEIRA Albuterol Sulfate (Albuterol Sulfate 90 Mcg 8 Gm Inhaler) 2 puff INHALE Q6H PRN PRN Reason: shortness of breath or wheezing Allopurinol (Allopurinol 100 Mg Tablet) 100 mg PO DAILY [facility] Last Admin: 08/23/23 08:37 Dose: 100 mg Documented By: KLAUDIA Apixaban (Apixaban 5 Mg Tablet) 5 mg PO BID [facility] Last Admin: 08/23/23 08:37 Dose: 5 mg Documented By: KLAUDIA Bisoprolol Fumarate (Bisoprolol Fumarate 5 Mg Tablet) 5 mg PO DAILY [facility] Last Admin: 08/23/23 08:37 Dose: 5 mg Documented By: KLAUDIA Brimonidine Tartrate (Brimonidine Tartrate 0.2% Oph 5 Ml Bottle) 1 drop EYE-BOTH BID [facility] Last Admin: 08/23/23 08:38 Dose: 1 drop Documented By: KLAUDIA Dronedarone (Dronedarone Hcl 400 Mg Tablet) 400 mg PO BID [facility] Last Admin: 08/23/23 08:37 Dose: 400 mg Documented By: KLAUDIA Finasteride (Finasteride 5 Mg Tablet) 5 mg PO DAILY [facility] Last Admin: 08/23/23 08:37 Dose: 5 mg Documented By: KLAUDIA Piperacillin Sod/Tazobactam (Sod 4.5 gm/ Sodium Chloride) 100 mls @ 200 mls/hr IV Q8H [facility] Last Infusion: 08/23/23 13:20 Dose: Infused Documented By: KLAUDIA Doxycycline Hyclate 100 mg/ (Sodium Chloride) 250 mls @ 166.67 mls/hr IV BID [facility] Last Infusion: 08/23/23 10:58 Dose: Infused Documented By: KLAUDIA Losartan Potassium (Losartan Potassium 25 Mg Tablet) 25 mg PO BEDTIME [facility]; Protocol Last Admin: 08/22/23 21:59 Dose: 25 mg Documented By: SHWETA Montelukast Sodium (Montelukast Sodium 10 Mg Tablet) 10 mg PO DAILY [facility] Last Admin: 08/23/23 08:37 Dose: 10 mg Documented By: KLAUDIA Patient Own ( Mometasone- Formoterol 200-5 Mcg /Actuation Hfa Aerosol Inhaler) 2 puff INHALE BID [facility] Last Admin: 08/23/23 08:06 Dose: 2 puff Documented By: ARLEEN Tiotropium [place] (Tiotropium [place] 2.5 Mcg 1 Puff/2.5 Mcg Mist.Inhal) 2 puff INHALE RDAILY [facility] Last Admin: 08/23/23 08:06 Dose: 2 puff Documented By: ARLEEN Labs 08/23/23 08:32 08/23/23 08:32 Labs: Laboratory Results - last 24 hr 08/23/23 08:32 MCV 100.6 H MCH 33.9 H MCHC 33.6 RDW 13.7 Plt Count 143 L D MPV 10.5 Absolute Nucleated RBC 0.000 Nucleated RBC % (auto) 0.0 Anion Gap 13 Estim Creat Clear Calc 48.0 Estimated GFR 43 Random Glucose 97 Calcium 9.2 Microbiology Microbiology Results: Microbiology 08/20/23 18:31 Blood Culture - Preliminary Blood - Venous No growth after 48 hours. 08/20/23 18:10 Blood Culture - Preliminary Blood - Venous No growth after 48 hours. Assessment and Plan (1) Acute hypoxic respiratory failure: Status: Acute Plan This is a 78 year old man s/p tooth extraction x4 presented to the ED for right sided facial swelling that started 08/17/23 along with some confusion that started the morning of admission. The patient was noted to be hypotensive and septic and was transferred to the ICU. Patient did not require pressors. reported that patient's blood pressures are always on the low side. Patient was transferred to medical floor on 08/21/2023 Acute hypoxic respiratory failure secondary to CAP Has history of underlying COPD/asthma and sarcoidosis Ambulated and oxygen saturation went down to 88% Chest x-ray slowing worsening bilateral pneumonia continue suplemental oxygen to keep o2 sat>90% continue zosyn, doxycycline Speech therapy following, diet advanced to NDD2 Facial cellulitis Secondary to tooth extraction Face CT showed phlegmonous changes around the right aspect of the mandible, no definite fluid collection. Blood cultures negative Continue Zosyn will need to follow up with o/p oral surgeon Sepsis secondary to facial cellulitis Status post tooth extraction Sepsis resolved Hypotension. Stable blood pressure on home meds, losartan, bisoprolol History of atrial flutter, paroxysmal Continue Multaq, Eliquis History of coronary artery disease Bisoprolol resumed BPH Continue finasteride Asthma/COPD no exacerbation, albuterol as needed DVT prophylaxis on Eliquis Full code Continue hospitalization for treatment of facial cellulitis requiring IV antibiotics and community-acquired pneumonia with hypoxia Quality Stroke Does the patient have a stroke diagnosis?: No VTE Prior VTE?: No VTE Risk Level:: Medical - moderate - high VTE Device Contraindication: N/A - Device Ordered VTE Drug Contraindication: N/A - Med Ordered
[2023-08-23] MEDS: Losartan Potassium 25 MG TABLET PO (22:06)
[2023-08-23] MEDS: Doxycycline Hyclate 100 MG in 0.9 % Sodium Chloride 250 ML 166.67 MG IV (22:47)
[2023-08-24] VITALS (11 sets, daily range): BP systolic 100–164; BP diastolic 48–82; PULSE 57–97; RESP 18–22; TEMP 35.9–36.8; O2SAT 94–98
[2023-08-24] MEDS: Piperacillin Sodium/Tazobactam 4.5 GM in 0.9 % Sodium Chloride 100 ML IV ×3 (04:00→22:28)
[2023-08-24] MEDS: Apixaban 5 MG TABLET PO ×2 (07:57→22:33)
[2023-08-24] MEDS: Finasteride 5 MG TABLET PO (07:57)
[2023-08-24] MEDS: Dronedarone HCl 400 MG TABLET PO ×2 (07:57→22:44)
[2023-08-24] MEDS: allopurinoL 100 MG TABLET PO (07:58)
[2023-08-24] MEDS: Montelukast Sodium 10 MG TABLET PO (07:58)
[2023-08-24] MEDS: Bisoprolol Fumarate 5 MG TABLET PO (07:58)
[2023-08-24] MEDS: Tiotropium Bromide 2.5 mcg 1 PUFF/2.5 MCG MIST.INHAL 2 PUFF INHALE (08:00)
[2023-08-24] MEDS: Doxycycline Hyclate 100 MG in 0.9 % Sodium Chloride 250 ML 166.67 MG IV (08:00)
[2023-08-24] MEDS: Brimonidine Tartrate 0.2% Oph 5 ML BOTTLE 1 DROP EYE-BOTH ×2 (08:01→22:49)
[2023-08-24] MEDS: Loperamide HCl 2 MG CAPSULE PO (11:35)
--- NOTE | 2023-08-24 11:52 | P.PNIM_ITS ---
Subjective Subjective Date of Service: 08/24/23 Interval History: Seen and examined this morning Follow-up for respiratory failure, dental infection Was able to ambulate in the hallway without desaturating, breathing improving Still with some facial swelling but also appears to be improving Review of Systems Review of Systems: Yes all other systems are reviewed and are negative Constitutional Constitutional: Denies chills and Denies fever(s) Cardiovascular Cardiovascular: Denies chest pain and Denies dyspnea on exertion Respiratory Respiratory: Denies cough and Denies dyspnea on exertion Gastrointestinal Gastrointestinal: Denies abdominal pain Physical Exam 2 Vital Signs: Vital Signs: Last Vital Signs Temp 97.7 F 08/24/23 08:00 Pulse 73 08/24/23 08:04 Resp 18 08/24/23 08:04 BP 121/63 08/24/23 08:00 Pulse Ox 94 08/24/23 08:00 O2 Del Method Room Air 08/24/23 08:00 O2 Flow Rate 2 08/24/23 04:00 Oxygen Flow Rate 2 08/21/23 02:16 BMI result Body Mass Index 34.2 Const: General: cooperative, comfortable, no acute distress, alert and awake Nutritional Appearance: overweight Resp: Effort & Inspection: normal respiratory effort, able to speak in complete sentences, no respiratory distress and no use of accessory muscles Cardio: Rate: regular rate GI: Inspection: No distended Palpation (GI): Soft to palpation and nontender Skin: Other: right side face swelling, no erythema Neuro: Other: grossly nonfocal Objective Data Active Medications Albuterol Sulfate (Albuterol Sulfate (0.083%) 2.5 Mg/3 Ml Vial.Neb) 2.5 mg INHALE Q4H PRN PRN Reason: Shortness of Breath/Wheezing Last Admin: 08/23/23 12:12 Dose: 2.5 mg Documented By: KEIRA Albuterol Sulfate (Albuterol Sulfate 90 Mcg 8 Gm Inhaler) 2 puff INHALE Q6H PRN PRN Reason: shortness of breath or wheezing Allopurinol (Allopurinol 100 Mg Tablet) 100 mg PO DAILY [facility] Last Admin: 08/24/23 07:58 Dose: 100 mg Documented By: JOSÉ Apixaban (Apixaban 5 Mg Tablet) 5 mg PO BID [facility] Last Admin: 08/24/23 07:57 Dose: 5 mg Documented By: JOSÉ Bisoprolol Fumarate (Bisoprolol Fumarate 5 Mg Tablet) 5 mg PO DAILY [facility] Last Admin: 08/24/23 07:58 Dose: 5 mg Documented By: JOSÉ Brimonidine Tartrate (Brimonidine Tartrate 0.2% Oph 5 Ml Bottle) 1 drop EYE- BOTH BID [facility] Last Admin: 08/24/23 08:01 Dose: 1 drop Documented By: JOSÉ Dronedarone (Dronedarone Hcl 400 Mg Tablet) 400 mg PO BID [facility] Last Admin: 08/24/23 07:57 Dose: 400 mg Documented By: JOSÉ Finasteride (Finasteride 5 Mg Tablet) 5 mg PO DAILY [facility] Last Admin: 08/24/23 07:57 Dose: 5 mg Documented By: JOSÉ Piperacillin Sod/Tazobactam (Sod 4.5 gm/ Sodium Chloride) 100 mls @ 200 mls/hr IV Q8H [facility] Last Admin: 08/24/23 11:34 Dose: 200 mls/hr Documented By: JOSÉ Doxycycline Hyclate 100 mg/ (Sodium Chloride) 250 mls @ 166.67 mls/hr IV BID [facility] Last Infusion: 08/24/23 09:58 Dose: Infused Documented By: JOSÉ Loperamide HCl (Loperamide Hcl 2 Mg Capsule) 2 mg PO Q6H PRN PRN Reason: Diarrhea Last Admin: 08/24/23 11:35 Dose: 2 mg Documented By: JOSÉ Losartan Potassium (Losartan Potassium 25 Mg Tablet) 25 mg PO BEDTIME [facility]; Protocol Last Admin: 08/23/23 22:06 Dose: 25 mg Documented By: SHWETA Montelukast Sodium (Montelukast Sodium 10 Mg Tablet) 10 mg PO DAILY [facility] Last Admin: 08/24/23 07:58 Dose: 10 mg Documented By: JOSÉ Patient Own ( Mometasone- Formoterol 200-5 Mcg /Actuation Hfa Aerosol Inhaler) 2 puff INHALE BID [facility] Last Admin: 08/24/23 08:01 Dose: 2 puff Documented By: KRISTIN Tiotropium [place] (Tiotropium [place] 2.5 Mcg 1 Puff/2.5 Mcg Mist.Inhal) 2 puff INHALE RDAILY [facility] Last Admin: 08/24/23 08:00 Dose: 2 puff Documented By: KRISTIN Labs 08/23/23 08:32 08/23/23 08:32 Assessment and Plan (1) Acute hypoxic respiratory failure: Status: Acute Plan This is a 78 year old man s/p tooth extraction x4 presented to the ED for right sided facial swelling that started 08/17/23 along with some confusion that started the morning of admission. The patient was noted to be hypotensive and septic and was transferred to the ICU. Patient did not require pressors. reported that patient's blood pressures are always on the low side. Patient was transferred to medical floor on 08/21/2023 Acute hypoxic respiratory failure secondary to CAP Has history of underlying COPD/asthma and sarcoidosis did better with ambulation, no desaturation; trial off oxygen Chest x-ray slowing worsening bilateral pneumonia continue supplemental oxygen to keep o2 sat>90% continue zosyn, doxycycline Speech therapy following, diet advanced to NDD2 Seen by Pulmonary, recommend to repeat chest x-ray in a.m. Facial cellulitis Secondary to tooth extraction Face CT showed phlegmonous changes around the right aspect of the mandible, no definite fluid collection. Blood cultures negative Continue Zosyn will need to follow up with o/p oral surgeon Sepsis secondary to facial cellulitis Status post tooth extraction Sepsis resolved Thrombocytopenia Likely due to acute infection Improving Hypotension. Stable blood pressure on home meds, losartan, bisoprolol History of atrial flutter, paroxysmal Continue Multaq, Eliquis History of coronary artery disease Bisoprolol resumed BPH Continue finasteride Asthma/COPD no exacerbation, albuterol as needed DVT prophylaxis on Eliquis Full code Disposition home with home physical therapy upon discharge Continue hospitalization for treatment of facial cellulitis requiring IV antibiotics and community-acquired pneumonia with hypoxia Quality Stroke Does the patient have a stroke diagnosis?: No VTE Prior VTE?: No VTE Risk Level:: Medical - moderate - high VTE Device Contraindication: N/A - Device Ordered VTE Drug Contraindication: N/A - Med Ordered
[2023-08-24] MEDS: Albuterol Sulfate (0.083%) 2.5 MG/3 ML VIAL.NEB INHALE (12:00)
--- NOTE | 2023-08-24 13:00 | MHC.SL.SWA ---
Speech Pathologist Impression: Risk of Aspiration Due to: Dysphasia Diet Status: Recommend continue on Ground/Mechanical (NDD2) for ease of mastication, Thin Liquids, pills whole with liquid. Recommend diet to advance to regular consistencies with continued improvement of oral/dental status at next level of care/discharge. Liquid Consistency and Strategies for Safe Swallow: Liquid Intake Recommendation: Thin Liquid Intake Strategies: Unrestricted Solid Food Consistency: Dietary Recommendations: Grnd/Mech Altered (NDD2) Additional Modifications to Solid Foods: Oral Medication Intake: Whole with Liquid Please contact the pharmacy regarding appropriate crushable or liquid drug formulations that are available whenever modified delivery is recommended. Compensatory Strategies and Precautions to be Taken for Safe Swallow: Sitting Upright (90 deg) Alternate Liquids/Solids Supervision While Eating and Drinking for Safe Swallow: Intermittent Supervision Foods to Avoid: Swallowing Recommended Treatments: Compens. Strategy Educat. Recommendation for Speech: Inpatient Speech Therapy Comment: Patient seen at lunch for toleration of recommended diet of Ground Mechanical/Thin from yesterday's evaluation. Diet recommended secondary to oral management issues s/p infection from oral surgery (teeth removal). Patient reported that his mouth is generally feeling better today. However reported that patient has had a poor appetite, which began before having oral surgery, and ate only small amounts last night, and had just finished eating a small amount of oatmeal from his breakfast tray immediately before the arrival of lunch. Patient was not interested in having any of the food on tray, however agreed to drink nutritional shake that came with meal. Patient was observed taking sips with a straw, producing a well timed swallow and no clinical signs of aspiration. reported that patient is likely to be discharged tomorrow, inquired if I was going to change diet. Advised that this was not indicated at this time, however that the issue is secondary to his dental/mouth issues, and she can advance diet independently to his preferred foods as tolerated after discharge. and patient agreed that adding Ensures to diet at home would be welcome. Recommend continue on Ground/Mechanical (NDD2) for ease of mastication, Thin Liquids, pills whole with liquid. Recommend diet to advance to regular consistencies with continued improvement of oral/dental status at next level of care/discharge. Frequency/Duration: Date Range for Service Req: Timeline to reassess: Hand Profiler Clinican/Clinical Fellow: No Supervisory Statement: I have reviewed and agree with the student/clinical fellow's documentation: N/A Speech Language Pathologist: Heidi Loera M.A., [facility] [employer]
--- NOTE | 2023-08-24 15:47 | P.CONPL_ITS ---
History of Present Illness History of Present Illness Consult date: 08/24/23 Chief complaint: hypotension Narrative: This is an inpatient pulmonary consultation the patient is a 78-year-old gentleman with known sarcoidosis who presents after complications after teeth extractions. The patient had a procedure done and then afterwards started getting swelling of the face. He was starting to get confused. He was brought to the [facility] ER. There was a question of compromised airway and he was admitted briefly to the ICU. The patient is placed on IV antibiotics. His swelling started to come down. His mentation also improving. Although yesterday started developing worsening shortness of breath. Moderate severity. He had his repeat chest x-ray demonstrating worsening bilateral patchy opacities. Seems to be feeling better at this time. May have a component of aspiration pneumonitis. Also being treated for pneumonia. He did require oxygen although right now is on room air. Review of Systems 2 Constitutional: Constitutional: Reports no additional constitutional complaints, Denies chills, Denies fever(s) and Denies night sweats Eyes: Eyes: Reports no additional eye complaints, Denies blurry vision, Denies change in vision, Denies diplopia, Denies eye discharge, Denies loss of vision and Denies eye pain ENT: Reports dysphagia, Denies dizziness and Reports facial pain Cardiovascular: Cardiovascular: Reports no additional cardiovascular complaints, Denies chest pain, Denies lightheadedness, Denies Loss of Consciousness and Denies dyspnea Respiratory: Respiratory: Reports no additional respiratory complaints and Denies dyspnea Gastrointestinal: Gastrointestinal: Reports no additional gastrointestinal complaints, Denies abdominal pain, Denies melena, Denies hematochezia, Denies change in bowel habits, Denies change in stool character, Reports dysphagia and Reports diarrhea (3 episodes, improved with medication) Genitourinary: Genitourinary: Reports no additional male genitourinary complaints, Denies hematuria, Denies oliguria, Denies difficulty urinating, Denies dysuria, Denies urinary frequency, Denies urinary hesitancy, Denies urinary incontinence and Denies urinary urgency Musculoskeletal: Musculoskeletal: Reports no additional musculoskeletal complaints, Denies numbness and Denies tingling Integumentary/Breasts: Skin/Breast: Reports swelling (right side of face and neck with overlying bruise) Neurologic: Reports confusion (alert, oriented to person and place, not year, able to answer hpi questions), Denies dizziness, Denies loss of vision, Denies numbness and Denies tingling Psychiatric: Psychiatric: Reports no additional psychiatric complaints and Reports confusion (alert, oriented to person and place, not year, able to answer hpi questions) Endocrine: Endocrine: Reports no additional endocrine complaints Hematologic/Lymphatic: Hematologic/Lymphatic: Reports no additional hematologic/lymphatic complaints Allergic/Immunologic: Allergic/Immunologic: Reports no additional allergic/immunologic complaints [facility] Past Medical History Medical History Pulmonary nodules Chronic restrictive lung disease Chronic renal disease Nonsustained ventricular tachycardia PVCs (premature ventricular contractions) CAD (coronary artery disease) Dyspnea Chronic allergic rhinitis Asthma Sarcoidosis Family History Family History Other Asthma Surgical History Surgical History Stented coronary artery Social History Social History Household Members: Spouse Housing: House Do you presently have visiting nurse or other home services: No Patient Tobacco Use Status: Never used Tobacco Tobacco use type: Cigar Smoked in Last 30 Days: No e-Cigarette/Vaping Use: Never Used Second Hand Smoke Exposure: No Use of substances other than those prescribed or required for medical reasons: No Currently Displaying Signs/Symptoms of Drug Intoxication Withdrawal: No Any prior treatment program specific to substance use: No Have you been hit, kicked, punched, or otherwise hurt by someone within the past year? If so, by whom?: No Do you feel safe in your current relationship?: Yes Is there a partner from a previous relationship who is making you feel unsafe now?: No Are you made to feel afraid or neglected: No Advance Directives: No Advance Directives Information Provided: Yes Do you have a plan to hurt others: No Plan Recently lost weight without trying: Yes How much weight loss: 2-13 pounds Eating poorly because of decreased appetite: Yes Nutrition screen score: 4 Nutrition Risks: Dental problems Poor oral hygiene: No service: Yes Meds Allergies Allergy/AdvReac Type Severity Reaction Status Date / Time gadobenic acid [Multihance] Allergy Severe Rash Verified 08/20/23 17:46 azithromycin Allergy Intermediate HIVES Verified 08/20/23 17:46 [From RFMicron [id number]] Iodinated Contrast Media Allergy Intermediate HIVES Verified 08/20/23 17:46 [IV CONTRAST] Penicillins Allergy Mild RASH Verified 08/20/23 17:46 Active Medications: Current Medications Albuterol Sulfate (Albuterol Sulfate (0.083%) 2.5 Mg/3 Ml Vial.Neb) 2.5 mg INHALE Q4H PRN PRN Reason: Shortness of Breath/Wheezing Last Admin: 08/24/23 12:00 Dose: 2.5 mg Albuterol Sulfate (Albuterol Sulfate 90 Mcg 8 Gm Inhaler) 2 puff INHALE Q6H PRN PRN Reason: shortness of breath or wheezing Allopurinol (Allopurinol 100 Mg Tablet) 100 mg PO DAILY [facility] Last Admin: 08/24/23 07:58 Dose: 100 mg Apixaban (Apixaban 5 Mg Tablet) 5 mg PO BID [facility] Last Admin: 08/24/23 07:57 Dose: 5 mg Bisoprolol Fumarate (Bisoprolol Fumarate 5 Mg Tablet) 5 mg PO DAILY [facility] Last Admin: 08/24/23 07:58 Dose: 5 mg Brimonidine Tartrate (Brimonidine Tartrate 0.2% Oph 5 Ml Bottle) 1 drop EYE- BOTH BID [facility] Last Admin: 08/24/23 08:01 Dose: 1 drop Dronedarone (Dronedarone Hcl 400 Mg Tablet) 400 mg PO BID [facility] Last Admin: 08/24/23 07:57 Dose: 400 mg Finasteride (Finasteride 5 Mg Tablet) 5 mg PO DAILY [facility] Last Admin: 08/24/23 07:57 Dose: 5 mg Piperacillin Sod/Tazobactam (Sod 4.5 gm/ Sodium Chloride) 100 mls @ 200 mls/hr IV Q8H [facility] Last Infusion: 08/24/23 12:24 Dose: Infused Doxycycline Hyclate 100 mg/ (Sodium Chloride) 250 mls @ 166.67 mls/hr IV BID [facility] Last Infusion: 08/24/23 09:58 Dose: Infused Loperamide HCl (Loperamide Hcl 2 Mg Capsule) 2 mg PO Q6H PRN PRN Reason: Diarrhea Last Admin: 08/24/23 11:35 Dose: 2 mg Losartan Potassium (Losartan Potassium 25 Mg Tablet) 25 mg PO BEDTIME [facility]; Protocol Last Admin: 08/23/23 22:06 Dose: 25 mg Montelukast Sodium (Montelukast Sodium 10 Mg Tablet) 10 mg PO DAILY [facility] Last Admin: 08/24/23 07:58 Dose: 10 mg Patient Own ( Mometasone- Formoterol 200-5 Mcg /Actuation Hfa Aerosol Inhaler) 2 puff INHALE BID [facility] Last Admin: 08/24/23 08:01 Dose: 2 puff Tiotropium [place] (Tiotropium [place] 2.5 Mcg 1 Puff/2.5 Mcg Mist.Inhal) 2 puff INHALE RDAILY [facility] Last Admin: 08/24/23 08:00 Dose: 2 puff Home Medications ?Medication ?Instructions ?Recorded ?Confirmed ?Last Taken ?Type allopurinol 100 mg tablet 100 mg PO DAILY 04/21/20 08/21/23 08/19/23 History montelukast 10 mg tablet 10 mg PO DAILY 04/21/20 08/21/23 08/19/23 History potassium citrate 10 mEq (1,080 10 meq PO BID 02/07/23 08/21/23 08/19/23 History mg) tablet,extended release finasteride 5 mg tablet 5 mg PO DAILY 06/29/23 08/21/23 08/19/23 History azelastine 137 mcg-fluticasone 50 1 spray intranasal BID PRN Allergy 08/21/23 08/21/23 Unknown History mcg/spray nasal spray Symptoms brimonidine 0.1 % eye drops 1 drp ophthalmic (eye) BID 08/21/23 08/21/23 08/20/23 History (Alphagan P) dronedarone 400 mg tablet (Multaq) 400 mg PO BID 08/21/23 08/21/23 08/20/23 History Physical Exam 2 Vital Signs: Vital Signs: Last Vital Signs Temp 98.0 F 08/24/23 12:00 Pulse 95 08/24/23 12:06 Resp 20 08/24/23 12:06 BP 102/59 L 08/24/23 12:00 Pulse Ox 98 08/24/23 12:00 O2 Del Method Room Air 08/24/23 12:00 O2 Flow Rate 2 08/24/23 04:00 Oxygen Flow Rate 2 08/21/23 02:16 BMI result Body Mass Index 34.2 Const: General: confusion (alert, oriented to person and place, not year, able to answer hpi questions) Nutritional Appearance: overweight O rientation/consciousness: confusion (alert, oriented to person and place, not year, able to answer hpi questions) HEENT: Face and sinus: Yes edema and Yes fluctuance Eyes: Conjunctivae: conjunctival abnormal bilateral pallor Neck: Neck: Yes trachea midline, Yes supple and Yes no JVD Chest: Chest palpation & inspection: normal inspection of the chest Resp: Effort & Inspection: normal respiratory effort, able to speak in complete sentences, no respiratory distress and no use of accessory muscles A uscultation: no crackles, no rales, no rhonchi and diminished lung sounds Cardio: Rate: regular rate Heart sounds: S1 normal heart sound present and S2 normal heart sound present GI: Inspection: No distended Palpation (GI): Soft to palpation and nontender Auscultation: normal bowel sounds Skin: Other: right side face swelling, no erythema General skin exam: no rashes or lesions noted Neuro: Other: grossly nonfocal General: confusion (alert, oriented to person and place, not year, able to answer hpi questions) Extrem: General: Yes no clubbing, cyanosis or edema Psych: Appearance: grossly normal Results Laboratory Findings 08/23/23 08:32 08/23/23 08:32 ABG, PT/INR, D-dimer: PT/INR, D-dimer PT 17.1 SEC (11.1-13.3) H 08/20/23 18:10 INR 1.4 (0.9-1.1) H 08/20/23 18:10 Abnormal lab findings: Abnormal Labs 08/20/23 08/20/23 08/20/23 17:57 18:10 20:49 WBC 14.1 H RBC 3.57 L D Hgb 12.1 L D Hct 34.4 L D MCV MCH 33.9 H Plt Count 153 L Immature Gran % (Auto) 0.8 H Neut % (Auto) 82.3 H Lymph % (Auto) 5.9 L Lymph # (Auto) 0.8 L [place] # (Auto) 1.5 H Abs Immat Gran (auto) 0.11 H Absolute Neuts (auto) 11.6 H ESR 59 H PT 17.1 H INR 1.4 H Sodium 134 L Chloride Carbon Dioxide 20 L BUN 24 H Creatinine 1.50 H POC Glucose 117 H Phosphorus Total Bilirubin 1.8 H C-Reactive Protein 22.82 H Total Protein Albumin 3.1 L Urine Blood Large (3+) H Ur Leukocyte Esterase Small (1+) H Urine RBC >20 H 08/21/23 08/21/23 08/22/23 04:50 10:10 07:46 WBC RBC 2.88 L 2.96 L 3.02 L Hgb 9.6 L D 9.8 L 10.1 L Hct 29.3 L 30.2 L 31.3 L MCV 101.7 H D 102.0 H 103.6 H MCH 33.3 H 33.1 H 33.4 H Plt Count 103 L D 113 L 108 L Immature Gran % (Auto) 0.7 H Neut % (Auto) 78.3 H Lymph % (Auto) 10.3 L Lymph # (Auto) 1.0 L [place] # (Auto) Abs Immat Gran (auto) 0.07 H Absolute Neuts (auto) ESR PT INR Sodium Chloride 109 H 113 H Carbon Dioxide 21 L 18 L BUN 22 H 27 H Creatinine 1.46 H 1.52 H POC Glucose Phosphorus 2.6 L Total Bilirubin 1.8 H C-Reactive Protein Total Protein 6.3 L Albumin Urine Blood Ur Leukocyte Esterase Urine RBC 08/23/23 08:32 WBC RBC 3.16 L Hgb 10.7 L Hct 31.8 L MCV 100.6 H MCH 33.9 H Plt Count 143 L D Immature Gran % (Auto) Neut % (Auto) Lymph % (Auto) Lymph # (Auto) [place] # (Auto) Abs Immat Gran (auto) Absolute Neuts (auto) ESR PT INR Sodium Chloride 113 H Carbon Dioxide 20 L BUN 27 H Creatinine 1.56 H POC Glucose Phosphorus Total Bilirubin C-Reactive Protein Total Protein Albumin Urine Blood Ur Leukocyte Esterase Urine RBC Microbiology: Microbiology 08/20/23 18:31 Blood - Venous Blood Culture - Preliminary No growth after 48 hours. 08/20/23 18:10 Blood - Venous Blood Culture - Preliminary No growth after 48 hours. 08/20/23 Unknown Urine clean catch - Urine lopez top Urine Culture - Final No growth. Assessment and Plan (1) Acute hypoxic respiratory failure: Status: Acute (2) Pulmonary nodules: Status: Acute (3) Cellulitis of face: Status: Acute (4) Aspiration pneumonitis: Status: Acute (5) Pneumonia: Qualifiers: Pneumonia type: due to unspecified organism Laterality: bilateral Lung location: unspecified part of lung Qualified Code(s): J18.9 - Pneumonia, unspecified organism Status: Acute Plan Clinically improving continue abx oxygen to keep pox>92% repeat CXR tomorrow Procedures Date of Service Date of Service: 08/24/23
[2023-08-24] MEDS: Losartan Potassium 25 MG TABLET PO (22:33)
[2023-08-24] MEDS: Doxycycline Hyclate 100 MG in 0.9 % Sodium Chloride 250 ML 166.7 MG IV (22:44)
[2023-08-25 00:20] VITALS: BP 127/58; PULSE 65; RESP 18; TEMP 36.6; O2SAT 94
[2023-08-25 04:00] VITALS: PULSE 53; RESP 20; TEMP 36.7; O2SAT 93
[2023-08-25] MEDS: Piperacillin Sodium/Tazobactam 4.5 GM in 0.9 % Sodium Chloride 100 ML IV (05:11)
[2023-08-25 06:00] VITALS: BMI 33.8
[2023-08-25 07:31] VITALS: PULSE 53; O2SAT 93
[2023-08-25] MEDS: Montelukast Sodium 10 MG TABLET PO (07:31)
[2023-08-25] MEDS: Finasteride 5 MG TABLET PO (07:31)
[2023-08-25] MEDS: Bisoprolol Fumarate 5 MG TABLET PO (07:31)
[2023-08-25] MEDS: Loperamide HCl 2 MG CAPSULE PO (07:31)
[2023-08-25] MEDS: Dronedarone HCl 400 MG TABLET PO (07:31)
[2023-08-25] MEDS: allopurinoL 100 MG TABLET PO (07:31)
[2023-08-25] MEDS: Apixaban 5 MG TABLET PO (07:31)
[2023-08-25] MEDS: Tiotropium Bromide 2.5 mcg 1 PUFF/2.5 MCG MIST.INHAL 2 PUFF INHALE (07:35)
[2023-08-25 07:40] VITALS: PULSE 56; RESP 20; O2SAT 95
[2023-08-25 07:55] VITALS: BP 156/75; PULSE 54; RESP 18; TEMP 36.5; O2SAT 94
[2023-08-25] MEDS: Doxycycline Monohydrate 100 MG CAPSULE PO (08:31)
[2023-08-25 11:02] VITALS: BP 125/68; PULSE 53; RESP 19; TEMP 36.4; O2SAT 94
--- NOTE | 2023-08-25 11:27 | P.DS_ITS ---
DS: Providers Provider Date of Service: 08/25/23 Date of admission: 08/21/23 00:53 Date of discharge: 08/25/23 Primary care physician: Moris Yu MD Consults: 08/24/23 07:21 Consult to Pulmonology Routine Consulting Provider: [facility] Reason for consultation: respiratory failure, pna; ?h/o sarcoidosis Has provider been notified: No Attending physician on discharge: Chris Manuel Discharging clinician: Tamera Watts DS: Diagnosis Discharge Diagnosis (1) Acute hypoxic respiratory failure: Status: Acute (2) Pulmonary nodules: Status: Acute (3) Cellulitis of face: Status: Acute (4) Aspiration pneumonitis: Status: Acute (5) Pneumonia: Status: Acute DS: Summary Hospital Course Hospital Course: From H&P on the day of admission The patient is a 78-year-old male with a past medical history of atrial flutter s/p? cardioversion on Eliquis, coronary artery disease, sarcoidosis of the lung,? COPD / asthma overlap syndrome, and recent tooth x3 tooth extraction on 08/14 who presented to the emergency department via? ambulance for evaluation of altered mental status and right-sided facial swelling. According to his patient? started to become confused during the morning,? which kept worsening throughout the day.? She noted the his facial swelling was also increased in size since his tooth extraction. She also reported patient not been eating or drinking as much since the procedure. He had 3 episodes of diarrhea 2 days ago, no blood, has been taking antidiarrheals with good effect. He was not on any antibiotics pre- or post-extraction, but his called dentist this morning about the swelling and dentist prescribed augmentin, he has had one dose. ? On arrival to the emergency department, patient was satting 88% on room air, T high 102.2, tachypneic to 26, and blood pressure 90/42. Laboratory data was significant for WBC 14.1, platelets 153,? serum sodium 134, serum bicarb 20, BUN 24, creatinine 1.50 ?Imaging:? Face/ soft tissue neck CT: Phlegmonous changes in the right premandibular space with marked, asymmetric soft tissue edema and inflammatory stranding. No organized fluid collection.Absent right mandibular second premolar tooth and second molar. Head CT:? no acute findings Abdominal ultrasound: Mild hepatic steatosis. Chest x-ray:? no significant changes? when compared to previous chest x-ray ? ED course:? Patient received 30 mL/kg fluid bolus, 200 mL of albumin, ceftriaxone 1 g, Zosyn 3.375, vancomycin and Tylenol This is a 78 year old man s/p tooth extraction x4 presented to the ED for right sided facial swelling that started 08/17/23 along with some confusion that started the morning of admission. The patient was noted to be hypotensive and septic and was transferred to the ICU. Patient did not require pressors. Patient was transferred to medical floor on 08/21/2023. Acute hypoxic respiratory failure secondary to CAP Has history of underlying COPD/asthma and sarcoidosis. Was able to be weaned off of oxygen and respiratory symptoms improved. Patient was able to ambulate without desaturating. He was treated with IV zosyn, doxycycline He was seen by Pulmonary and there was some question about aspiration pneumonitis. He did not receive any steroids. He was seen in consultation by speech therapy diet advanced to NDD2 which is he tolerating. No further inpatient workup recommended by pulmonology. sepsis due to Facial cellulitis Secondary to tooth extraction Face CT showed phlegmonous changes around the right aspect of the mandible, no definite fluid collection. Facial swelling continues to improve. Blood cultures have remained negative to date. sepsis resolved. Treated with IV Zosyn, will be discharged to complete 14 days of oral antibiotics. Needs definitive outpatient management with oral surgeon. Patient and his are aware and they have scheduled outpatient follow-up appointment Thrombocytopenia Likely due to acute infection Improving Hypotension. Stable blood pressure on home meds, losartan, bisoprolol Time Attestation Discharge Coordination Time (in mins): 36 Quality: Safe Use of Opioids Does Pt have an Active Cancer Diagnosis on the Problem List?: No Quality: Stroke Does the patient have a stroke diagnosis?: No Physical Exam Vital Signs: Vital Signs: Last Vital Signs Temp 97.5 F 08/25/23 11:02 Pulse 53 08/25/23 11:02 Resp 19 08/25/23 11:02 BP 125/68 08/25/23 11:02 Pulse Ox 94 08/25/23 11:02 O2 Del Method Room Air 08/25/23 11:02 O2 Flow Rate 2 08/24/23 04:00 Oxygen Flow Rate 2 08/21/23 02:16 BMI result Body Mass Index 33.8 Const: General: cooperative, comfortable, no acute distress, alert and awake Nutritional Appearance: overweight Resp: Effort & Inspection: normal respiratory effort, able to speak in complete sentences, no respiratory distress and no use of accessory muscles Cardio: Rate: regular rate GI: Inspection: No distended Palpation (GI): Soft to palpation and nontender Skin: Other: right side face swelling, no erythema Neuro: Other: grossly nonfocal DS: Data Data Completed and Pending Labs on day of discharge: Preliminary micro results at discharge 08/20/23 18:31 Blood Culture - Preliminary Blood - Venous No growth after 48 hours. 08/20/23 18:10 Blood Culture - Preliminary Blood - Venous No growth after 48 hours. Discharge Plan Discharge Anticipated Discharge Date/Time: 08/25/23 11:38 Patient Disposition: Home Health Service Discharge Diagnosis: Acute hypoxic respiratory failure due to pneumonia Sepsis due to facial cellulitis/dental infection Referrals: [facility] [Outside] - 1 Week Moris Yu MD [Primary Care Provider] - 1 Week Discharge Medications: New doxycycline monohydrate 100 mg tablet 100 mg PO BID 5 Days Qty: 10 0RF amoxicillin-pot clavulanate 875-125 mg tablet 1 tab PO Q12H 10 Days Qty: 20 0RF Continued mometasone-formoterol 200-5 mcg/actuation HFA aerosol inhaler 2 puff inhalation BID 90 Days Qty: 3 3RF losartan 25 mg tablet 25 mg PO BEDTIME Qty: 90 3RF Spiriva Respimat 2.5 mcg/actuation mist 2 inh inhalation DAILY Qty: 12 3RF albuterol sulfate 90 mcg/actuation HFA aerosol inhaler 2 inh inhalation Q6H PRN (Reason: shortness of breath or wheezing) 30 Days Qty: 18 12RF atorvastatin 80 mg tablet 80 mg PO DAILY Qty: 90 3RF bisoprolol fumarate 5 mg tablet 5 mg PO DAILY Qty: 90 3RF Eliquis 5 mg tablet 5 mg PO BID 90 Days Qty: 180 3RF brimonidine [Alphagan P] 0.1 % drops 1 drp ophthalmic (eye) BID Multaq 400 mg tablet 400 mg PO BID azelastine-fluticasone 137-50 mcg/spray spray,non-aerosol 1 spray intranasal BID PRN (Reason: Allergy Symptoms) allopurinol 100 mg tablet 100 mg PO DAILY montelukast 10 mg tablet 10 mg PO DAILY potassium citrate 10 mEq (1,080 mg) tablet extended release 10 meq PO BID finasteride 5 mg tablet 5 mg PO DAILY Discharge Orders: Discharge Order (Routine); Ordered 08/25/23 Ordered By: Tamera Watts Activity on Discharge: As tolerated Stand Alone Forms: Patient Portal Discharge page Print Language: Irish Other Ambulatory Orders: Basic Metabolic Panel (Routine) Timeframe: 1 Week Facility: [facility] - Location: Laboratory Ordered By: Tamera Watts Complete Blood Count no Diff (Routine) Timeframe: 1 Week Facility: [facility] - Location: Laboratory Ordered By: Tamera Watts Care Plan Goals: See below Health Concerns: Sepsis due to facial cellulitis Hypoxic respiratory failure due to Pneumonia Acute kidney injury Plan of Treatment: Recommend to complete entire course of antibiotics as prescribed. Call to schedule follow-up appointment with oral surgeon as soon as possible for definitive management of dental infection Call to schedule follow-up appointment with PCP Recommend outpatient follow-up lab work to monitor kidney function and platelet levels Outpatient follow-up with pulmonology as previously scheduled Recommend NDD2 diet - ground diet Home physical therapy services Assessment: See discharge summary
--- NOTE | 2023-08-25 11:45 | P.F2F_ITS ---
Service Date Service Date: 08/25/23 Encounter Date of encounter: 08/25/23 Reasons for Services Signs and symptoms assessed: Needs home physical therapy for safety mobility and therapeutic exercises Reason for physical therapy: home safety and mobility, therapeutic exercises and gait/transfer training Reason for speech therapy: swallowing impairment Overseeing Care: Mrois Yu Homebound: Leaving the home is medically contraindicated at this time without the asist of a device and/or another person due th the listed conditions above and below. Reason homebound: unsteady gait / fall risk Certification: Based on the above findings, I certify that this patient is confined to the home and needs intermittent jail care, physical therapy and/or speech therapy, or continues to need occupational therapy. The patient is under my care, and I have initiated the establishment of the plan of care. The patient will be followed by a physician who will periodically review the plan of care. Time Spent With Patient Time: Total time managing care of this patient today ____ minutes.
--- NOTE | 2023-08-25 11:49 | MHC.CM.PN ---
Patient has been medically cleared for dc to home today, with services.A referral was made to [facility], who has been made aware of today's dc. CM met with Patient and his at bedside and addressed IMM with them (original was given to Patient and a copy has been placed on the chart).
== END 2023-08-25 13:41 | DRG 871 ==
LOC: HO.ED 08-21 00:37 → HO.EDOVER 08-21 00:58 → HO.ICU 08-21 01:00 → HO.IMC 08-21 18:29
PROVIDERS: Internal Medicine; Internal Medicine Critical Care Medicine; Internal Medicine Pulmonary Disease; Physician Assistant Medical; Admitting Provider Registered Nurse Community Health; Emergency Provider Internal Medicine; PCP Internal Medicine; Visit Provider Physician Assistant Medical
DX: A41.9 Sepsis, unspecified organism (principal); J18.9 Pneumonia, unspecified organism; J69.0 Pneumonitis due to inhalation of food and vomit; L03.211 Cellulitis of face; N17.9 Acute kidney failure, unspecified; K91.89 Other postprocedural complications and disorders of digestive system; I48.92 Unspecified atrial flutter; J44.0 Chronic obstructive pulmonary disease with (acute) lower respiratory infection; D69.59 Other secondary thrombocytopenia; D86.0 Sarcoidosis of lung; K76.0 Fatty (change of) liver, not elsewhere classified; K04.7 Periapical abscess without sinus; N40.0 Benign prostatic hyperplasia without lower urinary tract symptoms; I95.9 Hypotension, unspecified; N18.31 Chronic kidney disease, stage 3a; I25.10 Atherosclerotic heart disease of native coronary artery without angina pectoris; Z20.822 Contact with and (suspected) exposure to COVID-19; Z91.041 Radiographic dye allergy status; Z79.01 Long term (current) use of anticoagulants; Z79.899 Other long term (current) drug therapy
CPT/HCPCS: 0241U; 36415; 70450; 70486; 70491; 71045; 76705; 80048; 80053; 81001; 82803; 82947; 83605; 83735; 84100; 84484; 85025; 85027; 85610; 85652; 85730; 86140; 87040; 87086; 87493; 92526; 92610; 93005; 97110; 97116; 97162; 99285; J0696; J2543; J3370; P9047; Q9967

== ENCOUNTER → 2023-08-20 17:54 | Outpatient (BNV) | payer MEDICARE, OTHER, SELFPAY | PROVIDERS: Admitting Provider Registered Nurse Community Health; Emergency Provider Internal Medicine; PCP Internal Medicine; Visit Provider Internal Medicine Cardiovascular Disease | DX: R94.31 Abnormal electrocardiogram [ECG] [EKG] (principal); R41.82 Altered mental status, unspecified | CPT/HCPCS: 93010 ==

== ENCOUNTER 2023-08-21 00:53 | Outpatient (BNV) | payer MEDICARE, OTHER, SELFPAY | END 2023-08-21 12:42 | PROVIDERS: Admitting Provider Registered Nurse Community Health; Emergency Provider Internal Medicine; PCP Internal Medicine; Visit Provider Internal Medicine Cardiovascular Disease | DX: R94.31 Abnormal electrocardiogram [ECG] [EKG] (principal); R00.1 Bradycardia, unspecified; R41.82 Altered mental status, unspecified | CPT/HCPCS: 93010 ==

== ENCOUNTER → 2023-08-21 00:53 | Outpatient (BNV) | payer MEDICARE, OTHER, SELFPAY | PROVIDERS: Admitting Provider Registered Nurse Community Health; Emergency Provider Internal Medicine; PCP Internal Medicine; Visit Provider Nurse Practitioner Acute Care | DX: J96.01 Acute respiratory failure with hypoxia (principal); L03.211 Cellulitis of face | CPT/HCPCS: 99232; 99239; 99499; G0180 ==

== ENCOUNTER → 2023-08-21 00:53 | Outpatient (BNV) | payer MEDICARE, OTHER, SELFPAY | PROVIDERS: Admitting Provider Registered Nurse Community Health; Emergency Provider Internal Medicine; PCP Internal Medicine; Visit Provider Registered Nurse Community Health | DX: J96.01 Acute respiratory failure with hypoxia (principal); A41.9 Sepsis, unspecified organism; L03.211 Cellulitis of face; I95.9 Hypotension, unspecified; N17.9 Acute kidney failure, unspecified | CPT/HCPCS: 99291 ==

== ENCOUNTER → 2023-08-21 00:53 | Outpatient (BNV) | payer MEDICARE, OTHER, SELFPAY | PROVIDERS: Admitting Provider Registered Nurse Community Health; Emergency Provider Internal Medicine; PCP Internal Medicine; Visit Provider Hospitalist | DX: J96.01 Acute respiratory failure with hypoxia (principal); R91.8 Other nonspecific abnormal finding of lung field; J69.0 Pneumonitis due to inhalation of food and vomit | CPT/HCPCS: 99222 ==

== ENCOUNTER 2023-09-04 12:18 | Inpatient (IN) | payer MEDICARE, OTHER, SELFPAY ==
[2023-09-04] VITALS (7 sets, daily range): BP systolic 103–148; BP diastolic 57–78; PULSE 56–60; RESP 15–20; TEMP 36.1–36.9; O2SAT 93–100; BMI 30.3; BMI 30.5
--- NOTE | ~2023-09-04 | FL_ITS ---
EXAMINATION: XR FLUOROSCOPY WITH IMAGES CLINICAL INFORMATION: Right stent placement COMPARISON: CT abdomen pelvis on 09/04/2023 TECHNIQUE: Fluoroscopy Supervised By: Dr. Ibarra. Fluoroscopy Time: 10.9 seconds. Cumulative Dose: 2.601 mGy. DAP: 1.131 Gycm2. Images: 1. FINDINGS: There is right hydronephrosis and a ureteral stent. FL/FL guidance in OR IMPRESSION: Fluoroscopy performed in the OR. Please see operative report for additional information.
--- NOTE | ~2023-09-04 | XR_ITS ---
EXAMINATION: XR CHEST CLINICAL INFORMATION: Shortness of breath COMPARISON: None available. TECHNIQUE: Frontal view of the chest was obtained. FINDINGS: vascularity. LUNGS: Persistent extensive reticular densities are seen in bilateral lungs. Patchy alveolar densities are seen in medial left upper lobe suprahilar region. Persistent extensive calcified granulomas are seen in medial right supraclavicular chest, bilateral mediastinal and hilar calcified lymph nodes. No pneumothorax is seen. BONES: Bony skeleton is intact. XR/XR chest 1V IMPRESSION: 1. Unchanged extensive right upper chest calcified granulomas, calcified mediastinal and hilar lymphadenopathy, compatible with sarcoidosis. 3. Persistent bilateral reticular interstitial lung fibrosis, organizing pneumonia in left suprahilar region.
--- NOTE | ~2023-09-04 | CT_ITS ---
EXAMINATION: CT CHEST, ABDOMEN AND PELVIS withoutCONTRAST CLINICAL INFORMATION: Abdominal pain. Constipation. Shortness of breath. History of sarcoidosis. COMPARISON: CT chest June 19, 2023. CT abdomen pelvis October 29, 2018 TECHNIQUE: Multidetector volumetric CT imaging of the chest, abdomen and pelvis was obtained . Coronal, Sagittal reformatted images preformed at the CT scanner. [This CT examination was performed using dose optimization techniques as appropriate, variously including the following: *Automated exposure control *Adjustment of mA and/or kV according to patient size (this includes techniques or standardized protocols for targeted exams where dose is matched to indication/reason for exam; i.e. extremities or head) *Use of iterative reconstruction technique] DLP: 1279 mGy-cm. FINDINGS: CT CHEST: Lungs: No significant change in bilateral airspace opacities since prior CT of June 19, 2023. Stable bilateral pulmonary nodules many of which are calcified. Patchy parenchymal airspace disease with associated calcifications in the posterior upper and lower lobes and perihilar lung. Stable mild bronchiectasis at lung bases with interstitial thickening lower lobes. No acute airspace disease. Mediastinum: Heart size is normal. No pericardial effusion. Numerous calcified lymph nodes redemonstrated in the mediastinum and [place] bilaterally. No new bulky lymphadenopathy. Coronary arteries: Heavy volume of coronary calcification. Pleura: No pleural effusion. Axilla: No lymphadenopathy. CT ABDOMEN AND PELVIS: Liver, Gallbladder and Biliary Tree: The liver is normal in size, shape, and attenuation. No focal hepatic lesion or biliary ductal dilatation is present. The gallbladder is unremarkable with no evidence of radiopaque gallstones, gallbladder wall thickening, or obvious pericholecystic inflammatory changes. Pancreas: Fatty atrophy of the pancreas. No acute abnormality. Spleen: Spleen normal in size and contour. No focal lesion. Adrenal Glands: Adrenal glands are normal in size. No focal mass. Kidneys and Ureters: Right kidney: Mild fullness of the right renal pelvis and proximal ureter. There is a stone in the proximal right ureter measuring 1.4 cm in length 0.6 cm in width. This is at the L4-L5 disc level. There is a 1.3 cm stone in the right renal pelvis. Density measurement 916 Hounsfield units. This stone is 11.4 cm from the posterior skin line. Multiple additional nonobstructive calculi in the right kidney. There are at least 10additional stones range in size from 1 cm to 3 mm. Left kidney: There is no hydronephrosis or hydroureter. There are least 6 nonobstructive calculi in the left kidney. There is a 2.8 cm cortical cyst upper pole of left kidney. No follow-up imaging is recommended for simple renal cyst. Bladder: Unremarkable. Gastrointestinal Tract: No acute abnormality. There is no bowel wall thickening /edema. There is no bowel obstruction. There is a moderate volume of stool in the colon. The appendix is normal . The small bowel loops are unremarkable. The stomach is normal. There is no hiatal hernia. Mesentery: No focal inflammation. No free fluid. No free air. Abdominal Wall: No significant hernia is appreciated. Lymph Nodes: Normal. Vascular: Vascular calcifications throughout the abdomen and pelvis. There is no aneurysm of aorta. Pelvic Viscera: Unremarkable. Osseous Structures: Status post right hip replacement. 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 CT/CT abdomen pelvis wo IV con IMPRESSION: 1. Mild hydronephrosis of right kidney due to an obstructing stone in the proximal right ureter. There is a 1.3 cm stone in the right renal pelvis. There are multiple additional nonobstructive bilateral renal calculi. 2. Stable bilateral airspace disease. Multiple calcified and noncalcified pulmonary nodules. Calcified mediastinal and hilar lymph nodes consistent with prior granulomatous disease. No new acute abnormality of the chest. 3. No acute abnormality of the abdomen or the pelvis. There is a moderate volume of stool in the colon. There is no acute abnormality of the bowel. 4. Status post right hip replacement. 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
--- NOTE | 2023-09-04 13:25 | ED.ABDPAIN ---
HPI - Abdominal Pain General Chief Complaint: Abdominal Pain Stated Complaint: WEAKNESS,PNA 1 WK AGO,FINISHED ABX PER EMS Time Seen by Provider: 09/04/23 12:21 Source: patient Mode of arrival: ambulatory Limitations: no limitations History of Present Illness ED Provider: Moni WINSTON HPI narrative: This is a 78-year-old male history of obesity, ETELVINA, atrial flutter on Eliquis, asthma, COPD, cardiomyopathy, constrictive lung disease, PVCs, CAD, asthma, sarcoidosis, recently admitted with septic pneumonia per patient presenting to the emergency department with complaints of fatigue, malaise, myalgias, failure to thrive, abdominal pain, changes in bowel habits ongoing for the past 3 days. Patient states he has not had a normal bowel movement for the past 3 days he was constipated up until this morning where he had a very small irregular bowel movement. He reports significant left-sided abdominal pain without radiation. Patient states that the pain is severe. He does not feel right. He was discharged home on Augmentin and doxycycline Augmentin he only took for 7 days although he is prescribed 10 days because it was causing him GI upset. Doxycycline he took for 5 days. He reports shortness of breath is still present. Patient denies fevers, chills, chest pain, nausea, vomiting, headache, vision changes, dizziness. Related Data Home Medications ?Medication ?Instructions ?Recorded ?Confirmed allopurinol 100 mg tablet 100 mg PO DAILY 04/21/20 08/21/23 montelukast 10 mg tablet 10 mg PO DAILY 04/21/20 08/21/23 potassium citrate 10 mEq (1,080 10 meq PO BID 02/07/23 08/21/23 mg) tablet,extended release finasteride 5 mg tablet 5 mg PO DAILY 06/29/23 08/21/23 azelastine 137 mcg-fluticasone 50 1 spray intranasal BID PRN Allergy 08/21/23 08/21/23 mcg/spray nasal spray Symptoms brimonidine 0.1 % eye drops 1 drp ophthalmic (eye) BID 08/21/23 08/21/23 (Alphagan P) dronedarone 400 mg tablet (Multaq) 400 mg PO BID 08/21/23 08/21/23 Previous Rx's ?Medication ?Instructions ?Recorded mometasone-formoterol HFA 200 2 puff inhalation BID 90 days #3 ea 11/07/22 mcg-5 mcg/actuation aerosol inhaler losartan 25 mg tablet 25 mg PO BEDTIME #90 tabs 11/16/22 tiotropium bromide 2.5 2 inh inhalation DAILY #12 grams 11/16/22 mcg/actuation mist for inhalation (Spiriva Respimat) albuterol sulfate 90 mcg/actuation 2 inh inhalation Q6H PRN shortness 12/19/22 aerosol inhaler of breath or wheezing 30 days #18 grams atorvastatin 80 mg tablet 80 mg PO DAILY #90 tabs 04/26/23 bisoprolol fumarate 5 mg tablet 5 mg PO DAILY #90 tabs 05/25/23 apixaban 5 mg tablet (Eliquis) 5 mg PO BID 90 days #180 tabs 05/30/23 amoxicillin 875 mg-potassium 1 tab PO Q12H 10 days #20 tabs 08/25/23 clavulanate 125 mg tablet doxycycline monohydrate 100 mg 100 mg PO BID 5 days #10 tabs 08/25/23 tablet Allergies Allergy/AdvReac Type Severity Reaction Status Date / Time gadobenic acid [Multihance] Allergy Severe Rash Verified 09/04/23 12:59 azithromycin Allergy Intermediate HIVES Verified 09/04/23 12:59 [From ZITHROMAX Z-JOYCE] Iodinated Contrast Media Allergy Intermediate HIVES Verified 09/04/23 12:59 [IV CONTRAST] Penicillins Allergy Mild RASH Verified 09/04/23 12:59 Review of Systems Review of Systems Yes all other systems are reviewed and are negative PMFSH Past Medical History Attestation statement: The following information was validated with the patient. Source: old records reviewed and nursing notes reviewed Medical History Pulmonary nodules Chronic restrictive lung disease Chronic renal disease Nonsustained ventricular tachycardia PVCs (premature ventricular contractions) CAD (coronary artery disease) Dyspnea Chronic allergic rhinitis Asthma Sarcoidosis Surgical History Stented coronary artery Family History Family History Other Asthma Social History Social History Household Members: Spouse Housing: House Do you presently have visiting nurse or other home services: No Patient Tobacco Use Status: Never used Tobacco Tobacco use type: Cigar Smoked in Last 30 Days: No e-Cigarette/Vaping Use: Never Used Second Hand Smoke Exposure: No Use of substances other than those prescribed or required for medical reasons: No Advance Directives: No Advance Directives Information Provided: Yes service: Yes Physical Exam ED Vital Signs: Vital Signs - 24 hr 09/04/23 12:55 09/04/23 13:00 09/04/23 14:18 Temperature 97.8 F 98.1 F Pulse Rate 58 60 58 Respiratory Rate 20 20 16 Blood Pressure 103/59 L 131/71 Pulse Oximetry 100 97 99 Oxygen Delivery Method Room Air Room Air Room Air 09/04/23 14:47 Temperature Pulse Rate 56 Respiratory Rate 16 Blood Pressure 128/62 Pulse Oximetry 95 Oxygen Delivery Method Room Air BMI result Body Mass Index 30.3 vss Appearance: Alert.? Oriented X3.? No acute distress.? Head: Normocephalic, atraumatic, no step-offs or deformities Eyes: Pupils equal, round and reactive to light.? CVS: Normal heart rate and rhythm.? Pulses normal.? Respiratory: No respiratory distress.? Breath sounds normal.? Abdomen: Soft and tenderness to palpation to LLQ.?Normoactive BS throughout. Skin: Skin warm and dry.? Normal skin color.? Normal skin turgor.? Extremities: No lower extremity edema.? No calf ttp. Global weakness Back: No midline tenderness, no C-spine tenderness, full range of motion, no CVA tenderness bilaterally Neuro: Oriented X 3.? No motor deficit.? No sensory deficit. CN 2-12 intact Course Reevaluation(s) Reevaluation #1: CBC with a normocytic anemia at baseline. Chemistry with elevated BUN and creatinine likely secondary to poor p.o. intake/dehydration. T bili 1.5 chronically high however. UA without infection. Chest x-ray with unchanged extensive right upper chest calcified granulomas likely secondary to sarcoidosis persistent bilateral reticular interstitial lung fibrosis organizing pneumonia in the left suprahilar region. Cef and vanco ordered. At this time infection suspected, antibiotics ordered. Will hydrate patient as well at this time. Time: 14:54 Reevaluation #2: Plan is hospital admission CT abdomen and pelvis pending. CT chest pending. Hospitalist Pat Hill in the room, will admit after imaging returns. Time: 14:55 Medical Decision Making Medical Decision Making [facility] Narrative: 78-year-old male presents with fatigue, malaise, myalgias, shortness of breath, abdominal pain ongoing for 3-4 days. Recently admitted for septic pneumonia. Physical exam tenderness to palpation of abdomen diffusely worse to the left lower quadrant. Normoactive bowel sounds. History and physical exam concerning for obstruction versus constipation vs diverticulitis. Will rule out worsening pneumonia, metabolic derangements. Unlikely ACS, PE, acute respiratory distress, dissection. I do not suspect appendicitis pancreatitis cholecystitis. Will rule out UTI as well. Plan labs, imaging urine Differential Diagnosis Differential Diagnoses: The differential diagnosis associated with the presentation includes History and physical exam concerning for obstruction versus constipation vs diverticulitis. Will rule out worsening pneumonia, metabolic derangements. Unlikely ACS, PE, acute respiratory distress, dissection. I do not suspect appendicitis pancreatitis cholecystitis. Will rule out UTI as well. Admission/Observation Consideration of admission/observation: Escalation of care including admission/observation considered Possible Lab Data [facility] Lab Attestation statement: I reviewed the patient's lab results. 09/04/23 13:29 09/04/23 13:29 Labs: Lab Results 09/04/23 09/04/23 Range/Units 13:29 13:53 WBC 7.8 (4.8-10.8) X10*3/uL RBC 3.69 L (4.60-5.80) X10*6/uL Hgb 12.1 L (14.0-18.0) g/dl Hct 35.3 L (42.0-52.0) % MCV 95.7 (80.0-98.0) fL MCH 32.8 (27.0-33.0) pg MCHC 34.3 (31.0-36.0) g/dl RDW 13.5 (11.0-16.0) % Plt Count 227 D (160-400) X10*3/uL MPV 11.3 (9.4-12.4) fL Immature Gran % (Auto) 0.4 (0.0-0.4) % Neut % (Auto) 64.3 (45-73) % Lymph % (Auto) 19.1 L (20-40) % [place] % (Auto) 14.0 H (2-11) % Eos % (Auto) 1.4 (0-4) % Baso % (Auto) 0.8 (0-2) % Lymph # (Auto) 1.5 (1.2-4.9) X10*3/uL [place] # (Auto) 1.1 (0.1-1.2) X10*3/uL Eos # (Auto) 0.1 (0.0-0.4) X10*3/uL Baso # (Auto) 0.1 (0.0-0.2) X10*3/uL Abs Immat Gran (auto) 0.03 (0.00-0.03) X10*3/uL Absolute Neuts (auto) 5.0 (2.0-8.3) x10*3/uL Absolute Nucleated RBC 0.000 (0.0-0.012) X10*3/uL Nucleated RBC % (auto) 0.0 (0.0-0.2) /100WBC PT 15.3 H (11.1-13.3) SEC INR 1.3 H (0.9-1.1) Sodium 137 (135-145) mmol/L Potassium 4.0 (3.3-5.1) mmol/L Chloride 102 (96-108) mmol/L Carbon Dioxide 24 (22-29) mmol/L Anion Gap 15 (12-20) BUN 29 H (9-16) mg/dL Creatinine 2.24 H (0.5-1.4) mg/dL Estim Creat Clear Calc 31.5 Estimated GFR 28 Random Glucose 95 (60-115) mg/dL Calcium 9.8 D (8.4-10.2) mg/dL Magnesium 2.2 (1.6-2.6) mg/dL Total Bilirubin 1.5 H (0.0-1.0) mg/dL AST 29 (5-37) U/L ALT 21 (0-40) U/L Alkaline Phosphatase 72 (39-117) U/L Troponin I High Sens 30.7 (<3.5-35.0) ng/L B-Natriuretic Peptide 98 (<100) pg/mL Total Protein 7.2 (6.5-8.0) g/dL Albumin 3.7 (3.5-5.0) g/dL Lipase 17 (8-78) U/L Urine Color Yellow Urine Appearance Clear Urine pH 8.0 (5.0-9.0) Ur Specific [place] 1.010 (1.005-1.025) Urine Protein Negative (Neg-Trace) mg/dL Urine Glucose (UA) Negative (Negative) mg/dL Urine Ketones Negative (Negative) mg/dL Urine Blood Negative (Negative) Urine Nitrite Negative (Negative) Ur Leukocyte Esterase Small (1+) H (Negative) Urine RBC 0-2 (0-2) /HPF Urine WBC 6-10 H (0-5) /HPF Ur Squamous Epith Cells 0-2 (0-2) /HPF Urine Bacteria None Seen (None Seen) Hyaline Casts 0-2 (0-2) /LPF Independent Interpretation I performed an independent interpretation of an: EKG (Vent. Rate : 054 BPM Atrial Rate : 054 BPM P-R Int : 204 ms QRS Dur : 110 ms QT Int : 442 ms P-R-T Axes : 015 -26 034 degrees QTc Int : 419 ms Sinus bradycardia Nonspecific T wave abnormality Abnormal ECG When compared with ECG of 21-AUG-2023 12:42, Premature ventricul), Plain X-Ray ( XR/XR chest 1V IMPRESSION: 1. Unchanged extensive right upper chest calcified granulomas, calcified mediastinal and hilar lymphadenopathy, compatible with sarcoidosis. 3. Persistent bilateral reticular interstitial lung fibrosis, organizing pneumonia in left suprahilar region.) and CT Scan Radiology Impression Discussion of test interpretation with radiology: I have reviewed the radiologist's reading. External Record Review External record reviewed: Inpatient record, Office record, Outpatient record, Prior outpatient labs, Prior outpatient radiology, Primary care record and Outside ED record Chronic Conditions Patient?s care impacted by: Other Medications Administered Generic Name Dose Route Start Last Admin Trade Name Freq PRN Reason Stop Dose Admin Sodium Chloride 500 mls @ 500 mls/hr 09/04/23 14:30 09/04/23 14:46 Ns IV 09/04/23 15:29 500 mls/hr .Q1H ESTUARDO Administration Critical Care Time Critical Care Time Critical Care Time: Yes Total Critical Care Time: 45 Attestation: I attest to this time spent taking care of the patient, obtaining history, physical, reviewing labs, imaging, speaking to my attending, specialist or hospitalist. Discharge Plan Discharge Clinical Impression: Sarcoidosis, ETELVINA (acute kidney injury), Pneumonia, Abdominal pain, Dehydration Patient Disposition: Admitted As Inpatient Print Language: Hungarian
--- NOTE | 2023-09-04 13:30 | ECG_ITS ---
Test Reason : WEAKNESS Blood Pressure : / mmHG Vent. Rate : 054 BPM Atrial Rate : 054 BPM P-R Int : 204 ms QRS Dur : 110 ms QT Int : 442 ms P-R-T Axes : 015 -26 034 degrees QTc Int : 419 ms Sinus bradycardia Inferior T wave inversions-consider ischemia Abnormal ECG When compared with ECG of 21-AUG-2023 12:42, Premature ventricular complexes are no longer Present Referred By: Keesha Stein Electronically Signed By:Chan Brown
[2023-09-04 13:33] LABS: MANUAL DIFF FLAG NO
[2023-09-04 13:39] LABS: Basophils Absolute Auto 0.1 X10*3/uL (0.0-0.2); Basophils Percent Auto 0.8 % (0-2); Eosinophils Absolute Auto 0.1 X10*3/uL (0.0-0.4); Eosinophils Percent Auto 1.4 % (0-4); Hematocrit 35.3 % (42.0-52.0); Hemoglobin 12.1 g/dl (14.0-18.0); Imm Gran Abs Auto 0.03 X10*3/uL (0.00-0.03); Imm Gran Pct Auto 0.4 % (0.0-0.4); Lymphocytes Absolute Auto 1.5 X10*3/uL (1.2-4.9); Lymphocytes Percent Auto 19.1 % (20-40); Mean Corpuscular HGB Conc 34.3 g/dl (31.0-36.0); Mean Corpuscular Hemoglobin 32.8 pg (27.0-33.0); Mean Corpuscular Volume 95.7 fL (80.0-98.0); Mean Platelet Volume 11.3 fL (9.4-12.4); Monocytes Absolute Auto 1.1 X10*3/uL (0.1-1.2); Neutrophils Percent Auto 64.3 % (45-73); Platelet Count 227 X10*3/uL (160-400); Red Blood Count 3.69 X10*6/uL (4.60-5.80); Red Cell Distribution Width 13.5 % (11.0-16.0); White Blood Count 7.8 X10*3/uL (4.8-10.8)
[2023-09-04 13:45] LABS: INTERNATIONAL NORM RATIO 1.3 (0.9-1.1); Prothrombin Time 15.3 SEC (11.1-13.3)
[2023-09-04 14:02] LABS: Appearance Urine Clear; Color Urine Yellow; Glucose Urine UA Negative (Negative); Leukocyte Esterase Urine Small (1+) (Negative); Nitrite Urine Negative (Negative); UMIC TRIGGER UACC YES; Urine Blood Negative (Negative); Urine Ketones Negative (Negative); Urine Protein Negative (Neg-Trace)
[2023-09-04 14:07] LABS: Bacteria Urine None Seen (None Seen); Hyaline Casts Urine 0-2 /LPF (0-2); RBC Urine 0-2 /HPF (0-2); Squamous Epithelial Cell Urine 0-2 /HPF (0-2); UACC Culture Trigger YES
[2023-09-04 14:08] LABS: Alanine Aminotransferase 21 U/L (0-40); Albumin Level 3.7 g/dL (3.5-5.0); Alkaline Phosphatase 72 U/L (39-117); Anion Gap 15 (12-20); Aspartate Amino Transferase 29 U/L (5-37); B Type Natriuretic Peptide 98 pg/mL (<100); Bilirubin Total 1.5 mg/dL (0.0-1.0); Blood Urea Nitrogen 29 mg/dL (9-16); Calcium 9.8 mg/dL (8.4-10.2); Carbon Dioxide 24 mmol/L (22-29); Chloride 102 mmol/L (96-108); Creatinine Clr Calc Pharmacy 31.5; Estimated Glomerular Filt Rate 28; Glucose Random 95 mg/dL (60-115); Lipase 17 U/L (8-78); Magnesium 2.2 mg/dL (1.6-2.6); Sodium 137 mmol/L (135-145); Total Protein 7.2 g/dL (6.5-8.0); Troponin-I High Sensitivity 30.7 ng/L (<3.5-35.0)
[2023-09-04] MEDS: 0.9 % Sodium Chloride 500 ML IV ×2 (14:46→16:43)
--- NOTE | 2023-09-04 15:48 | PHA.MEDREC ---
Addendum entered by Sharon Reyes [facility] 09/04/23 17:16: spoke with in ED. Patient has eliquis held since 08/27/[address] nava due to bloody urine. Original Note: Pharmacy Consult ? Medication Reconciliation Pharmacy has completed the medication reconciliation. Spoke to at bedside to confirm med list. Patients was very knowledgeable and had a list with her from last visit.
--- NOTE | 2023-09-04 15:51 | PM.IMHP ---
History of Present Illness Date of Service: 09/04/23 Chief Complaint: Lethargy 70-year-old man presented to the ER with lethargy and poor appetite over the last several days. Patient was discharged from [facility] on 08/25/2023. Attempt was treated for sepsis secondary to facial cellulitis and acute hypoxic respiratory failure secondary to pneumonia. Patient reports he went home he felt better but then he started to feel worse and have episodes of wheezing. He was seen by his primary care provider who started him on Lasix for edema as well. Continuing on his oral antibiotics but began to feel nauseous and had very poor appetite so his stopped them short of the 10 days. Patient denies chest pain, shortness of breath, vomiting, diarrhea. Reported nausea with some loose stools and very poor appetite. In the ER, chest CT showed abdominal CT showed mild hydronephrosis of the right kidney due to an obstructing stone in the proximal right ureter, 1.3 cm stone in the right renal pelvis and stable airspace disease. No fever leukocytosis noted, creatinine to be elevated at 2.24. Vital signs stable. Patient was given ceftriaxone, vancomycin and morphine in the ER along with 500 mL of IV fluid. He will be admitted for further management and treatment of healthcare associated pneumonia and hydronephrosis. Review of Systems Review of Systems: Denies any recent fever chills or decrease in appetite respiratory denies any shortness of breath or cough, reported some mild wheezing cardiovascular denied chest pain gastrointestinal denies any dysphagia abdominal pain nausea vomiting or diarrhea genitourinary denies any dysuria frequency or hematuria musculoskeletal denies any joint pain or swelling neuropsych denies any weakness or seizures all other systems reviewed are negative [facility] Medical History Pulmonary nodules Chronic restrictive lung disease Chronic renal disease Nonsustained ventricular tachycardia PVCs (premature ventricular contractions) CAD (coronary artery disease) Dyspnea Chronic allergic rhinitis Asthma Sarcoidosis Family History Other Asthma Surgical History Stented coronary artery Social History Household Members: Spouse Housing: House Do you presently have visiting nurse or other home services: No Patient Tobacco Use Status: Never used Tobacco Tobacco use type: Cigar Smoked in Last 30 Days: No e-Cigarette/Vaping Use: Never Used Second Hand Smoke Exposure: No Use of substances other than those prescribed or required for medical reasons: No Currently Displaying Signs/Symptoms of Drug Intoxication Withdrawal: No Any prior treatment program specific to substance use: No Have you been hit, kicked, punched, or otherwise hurt by someone within the past year? If so, by whom?: No Do you feel safe in your current relationship?: Yes Is there a partner from a previous relationship who is making you feel unsafe now?: No Are you made to feel afraid or neglected: No Advance Directives: No Advance Directives Information Provided: Yes Do you have a plan to hurt others: No Plan Recently lost weight without trying: Unsure How much weight loss: Unsure Eating poorly because of decreased appetite: Yes Nutrition screen score: 5 Nutrition Risks: Poor intake 0-25% >4 days Poor oral hygiene: No service: Yes Meds Allergies Allergy/AdvReac Type Severity Reaction Status Date / Time gadobenic acid [Multihance] Allergy Severe Rash Verified 09/04/23 12:59 azithromycin Allergy Intermediate HIVES Verified 09/04/23 12:59 [From ZITHROMAX Z-JOYCE] Iodinated Contrast Media Allergy Intermediate HIVES Verified 09/04/23 12:59 [IV CONTRAST] Penicillins Allergy Mild RASH Verified 09/04/23 12:59 Active Medications: Current Medications Vancomycin HCl (Vancomycin/Ns) 2,000 mg in 500 mls @ 250 mls/hr IV ONCE ONE Stop: 09/04/23 16:53 Sodium Chloride (Ns) 500 mls @ 500 mls/hr IV .Q1H ESTUARDO Stop: 09/04/23 15:59 Home Medications ?Medication ?Instructions ?Recorded ?Confirmed ?Last Taken ?Type allopurinol 100 mg tablet 100 mg PO DAILY 04/21/20 09/04/23 08/31/23 History montelukast 10 mg tablet 10 mg PO DAILY@1200 04/21/20 09/04/23 08/31/23 History potassium citrate 10 mEq (1,080 10 meq PO BID 02/07/23 09/04/23 08/31/23 History mg) tablet,extended release finasteride 5 mg tablet 5 mg PO DAILY 06/29/23 09/04/23 08/19/23 History brimonidine 0.1 % eye drops 1 drp ophthalmic (eye) BID 08/21/23 09/04/23 08/20/23 History (Alphagan P) dronedarone 400 mg tablet (Multaq) 400 mg PO BID 08/21/23 09/04/23 08/31/23 History Prevagen 1 cap PO DAILY 09/04/23 09/04/23 Unknown History atorvastatin 80 mg tablet 80 mg PO BEDTIME 09/04/23 09/04/23 09/03/23 History azelastine 137 mcg-fluticasone 50 2 spray intranasal DAILY 09/04/23 09/04/23 Unknown History mcg/spray nasal spray (Dymista) furosemide 40 mg tablet 40 mg PO DAILY 09/04/23 09/04/23 08/31/23 History mometasone-formoterol HFA 200 1 puff inhalation BID 09/04/23 09/04/23 08/31/23 History mcg-5 mcg/actuation aerosol inhaler (Dulera) multivitamin 1 tab PO DAILY 09/04/23 09/04/23 09/03/23 History Physical Exam Vital Signs and Narrative: Vital Signs: Last Vital Signs Temp 98.1 F 09/04/23 14:18 Pulse 56 09/04/23 14:47 Resp 16 09/04/23 14:47 BP 128/62 09/04/23 14:47 Pulse Ox 95 09/04/23 14:47 O2 Del Method Room Air 09/04/23 14:47 BMI result Body Mass Index 30.3 Appearing in no acute distress head is normocephalic atraumatic eyes pupils are PERRLA sclera is anicteric mouth throat mucous membranes are intact and moist neck is supple no lymphadenopathy, no JVD noted lung sounds are clear to auscultation heart regular rate rhythm, clear S1, S2 positive bowel sounds, abdomen is soft, nontender neuro patient is alert x3, no focal deficits Results Labs 09/05/23 06:24 09/05/23 06:25 Labs: Laboratory Results - last 24 hr 09/04/23 09/04/23 13:29 13:53 MCV 95.7 MCH 32.8 MCHC 34.3 RDW 13.5 Plt Count 227 D MPV 11.3 Immature Gran % (Auto) 0.4 Neut % (Auto) 64.3 Lymph % (Auto) 19.1 L [place] % (Auto) 14.0 H Eos % (Auto) 1.4 Baso % (Auto) 0.8 Lymph # (Auto) 1.5 [place] # (Auto) 1.1 Eos # (Auto) 0.1 Baso # (Auto) 0.1 Abs Immat Gran (auto) 0.03 Absolute Neuts (auto) 5.0 Absolute Nucleated RBC 0.000 Nucleated RBC % (auto) 0.0 PT 15.3 H INR 1.3 H Anion Gap 15 Estim Creat Clear Calc 31.5 Estimated GFR 28 Random Glucose 95 Calcium 9.8 D Magnesium 2.2 Total Bilirubin 1.5 H AST 29 ALT 21 Alkaline Phosphatase 72 Troponin I High Sens 30.7 B-Natriuretic Peptide 98 Total Protein 7.2 Albumin 3.7 Lipase 17 Urine Color Yellow Urine Appearance Clear Urine pH 8.0 Ur Specific [place] 1.010 Urine Protein Negative Urine Glucose (UA) Negative Urine Ketones Negative Urine Blood Negative Urine Nitrite Negative Ur Leukocyte Esterase Small (1+) H Urine RBC 0-2 Urine WBC 6-10 H Ur Squamous Epith Cells 0-2 Urine Bacteria None Seen Hyaline Casts 0-2 Imaging Radiologist's Impressions: Impressions Chest X-Ray 09/04/23 13:00 IMPRESSION: 1. Unchanged extensive right upper chest calcified granulomas, calcified mediastinal and hilar lymphadenopathy, compatible with sarcoidosis. 3. Persistent bilateral reticular interstitial lung fibrosis, organizing pneumonia in left suprahilar region. Assessment and Plan (1) Pneumonia: Status: Acute (2) Dehydration: Status: Acute (3) Pneumonia: Qualifiers: Laterality: bilateral Lung location: unspecified part of lung Pneumonia type: due to unspecified organism Qualified Code(s): J18.9 - Pneumonia, unspecified organism Status: Acute Plan 78-year-old man admitted with healthcare associated pneumonia hydronephrosis and ETELVINA Healthcare associated pneumonia Chest CT shows stable bilateral airspace disease with multiple calcified and noncalcified pulmonary nodules Recently admitted with pneumonia will treat with broad-spectrum antibiotics at this time Continue vancomycin, renally dosed and Zosyn Supplemental oxygen as needed Cough suppressant as needed ETELVINA Multifactorial secondary to recent Lasix, hypovolemia, hydronephrosis and poor appetite Gentle IV fluids Nephrology consultation Stop Lasix Hydronephrosis Patient with Nausea Abdominal CT shows mild hydronephrosis of right kidney due to obstructing stone in the proximal right ureter, 1.3 cm stone in the right renal pelvis Antiemetics as needed Urology consultation>rec NPO after midnight History of atrial flutter, paroxysmal Continue BB and Multaq hold Eliquis for urological procedure BPH Continue finasteride Mild intermittent asthma/COPD overlap No exacerbation Continue home inhalers Hyperlipidemia Continue statin DVT prophylaxis with eliquis, hold for urological procedure Full code Patient will likely require 48 hours for treatment of healthcare associated pneumonia requiring IV antibiotics, ETELVINA requiring IV fluids and specialty consultation. Due to patient's age he is at high risk for decompensation. Quality Stroke Does the patient have a stroke diagnosis?: No VTE Prior VTE?: No VTE Risk Level:: Medical - moderate - high VTE Device Contraindication: Treatment Not Indicated VTE Drug Contraindication: N/A - Med Ordered
[2023-09-04 16:19] LABS: Lactic Acid 1.5 mmol/L (0.5-2.0)
[2023-09-04] MEDS: cefTRIAXone sodium 1 GM in 0.9 % Sodium Chloride 50 ML IV (16:33)
[2023-09-04] MEDS: vancomycin/NS 2,000 MG/500 ML PLAST..BAG 250 MG IV (17:32)
--- NOTE | 2023-09-04 17:37 | PC.NURSE ---
Pt is resting comfortably with complaints offered. Vancomycin administered per APR.
--- NOTE | 2023-09-04 17:58 | PHA.PROG ---
Admission Date/Time: September 04, 2023 16:02 Indication: Respiratory Weight in k.708 kg Adjusted body weight in Kg: [place] body weight in Kg: Obesity Dosing Indication % IBW: Serum Creatinine - Last 168 Hours 09/04/23 13:29 Creatinine 2.24 H Estimated CrCl and GFR - Last 168 Hours 09/04/23 13:29 Estim Creat Clear Calc 31.5 Estimated GFR 28 Vancomycin Loading Dose: 2000 mg x 1 Current Vancomycin Dosing Regimen: 750mg Q24H Vancomycin Monitoring using AUC goal of 400 - 600 range with trough as surrogate marker: 428mg/L Date and Time for next Vancomycin Level to be drawn: 09/05 @1500 Pharmacist Comments on Vancomycin Plan: Patient's renal function is poor, so getting a level after two doses to ensure proper monitoring. Predicted trough of 14.6mg/L. Will adjust if renal function changes Vancomycin dosing will take advantage of [employer] as a clinical decision support tool that uses Bayesian modeling to calculate individual patient's pharmacokinetic parameters and forecast the patient's drug concentration time course with the target goal AUC 24 range of 400 - 600 mg/L/hr.
[2023-09-04] MEDS: polyethylene glycoL 3350 17 GM POWD.PACK PO (21:13)
[2023-09-04] MEDS: Atorvastatin Calcium 80 MG TABLET PO (21:13)
[2023-09-04] MEDS: Dronedarone HCl 400 MG TABLET PO (21:13)
[2023-09-05] VITALS (14 sets, daily range): BP systolic 95–160; BP diastolic 58–112; PULSE 51–64; RESP 1–18; TEMP 36–36.6; O2SAT 94–97
--- NOTE | 2023-09-05 04:25 | PC.NURSE ---
per Dr. Paco Alston due to patient allergy to penicillin do not administer zosyn. zosyn changed to ceftriaxone per provider. all needs met, call ellis in reach.
[2023-09-05 06:27] LABS: MANUAL DIFF FLAG NO
[2023-09-05 06:31] LABS: Basophils Percent Auto 0.5 % (0-2); Eosinophils Absolute Auto 0.1 X10*3/uL (0.0-0.4); Eosinophils Percent Auto 1.6 % (0-4); Hematocrit 36.7 % (42.0-52.0); Hemoglobin 12.2 g/dl (14.0-18.0); Imm Gran Abs Auto 0.05 X10*3/uL (0.00-0.03); Imm Gran Pct Auto 0.7 % (0.0-0.4); Lymphocytes Absolute Auto 1.6 X10*3/uL (1.2-4.9); Lymphocytes Percent Auto 21.6 % (20-40); Mean Corpuscular HGB Conc 33.2 g/dl (31.0-36.0); Mean Corpuscular Hemoglobin 32.4 pg (27.0-33.0); Mean Corpuscular Volume 97.3 fL (80.0-98.0); Mean Platelet Volume 11.5 fL (9.4-12.4); Monocytes Absolute Auto 1.2 X10*3/uL (0.1-1.2); Monocytes Percent Auto 16.3 % (2-11); Neutrophils Absolute Auto 4.4 x10*3/uL (2.0-8.3); Neutrophils Percent Auto 59.3 % (45-73); Platelet Count 196 X10*3/uL (160-400); Red Blood Count 3.77 X10*6/uL (4.60-5.80); Red Cell Distribution Width 13.6 % (11.0-16.0); White Blood Count 7.4 X10*3/uL (4.8-10.8)
[2023-09-05 06:51] LABS: Anion Gap 15 (12-20); Blood Urea Nitrogen 24 mg/dL (9-16); Calcium 9.5 mg/dL (8.4-10.2); Carbon Dioxide 23 mmol/L (22-29); Chloride 105 mmol/L (96-108); Creatinine Clr Calc Pharmacy 38.1; Estimated Glomerular Filt Rate 35; Glucose Random 88 mg/dL (60-115); Magnesium 2.2 mg/dL (1.6-2.6); Potassium 3.9 mmol/L (3.3-5.1); Sodium 139 mmol/L (135-145)
--- NOTE | 2023-09-05 08:25 | HE.PHANOTE ---
Re: Vanco Pt Creatinine improved, 750mg q24h predicted subtherapeutic AUC. Changed dose to 1000mg q24h with predicted AUC = 486 mg/L and trough of 16mg/L. Level still to be drawn for 09/05 @1500.
--- NOTE | 2023-09-05 09:09 | HO.PM.IMPN ---
Subjective Subjective Date of Service: 09/05/23 Review of Systems Follow up abd pain and nausea feeling better noted renal stone plan for urological procedure Physical Exam Vital Signs: Vital Signs: Last Vital Signs Temp 96.8 F 09/05/23 08:00 Pulse 57 09/05/23 08:00 Resp 18 09/05/23 08:00 BP 134/63 09/05/23 08:00 Pulse Ox 96 09/05/23 08:00 O2 Del Method Room Air 09/05/23 08:00 BMI result Body Mass Index 30.5 Appearing in no acute distress lung sounds are clear to auscultation heart regular rate rhythm, clear S1, S2 positive bowel sounds, abdomen is soft, nontender neuro patient is alert x3, no focal deficits Objective Data Active Medications Acetaminophen (Acetaminophen 325 Mg Tablet) 650 mg PO Q6H PRN PRN Reason: Pain, Mild (Pain Scale 1-3), fever or headache Albuterol Sulfate (Albuterol Sulfate 90 Mcg 8 Gm Inhaler) 2 puff INHALE Q6H PRN PRN Reason: shortness of breath or wheezing Allopurinol (Allopurinol 100 Mg Tablet) 100 mg PO DAILY [facility] Apixaban (Apixaban 5 Mg Tablet) 5 mg PO BID [facility] Atorvastatin Calcium (Atorvastatin Calcium 80 Mg Tablet) 80 mg PO BEDTIME [facility] Last Admin: 09/04/23 21:13 Dose: 80 mg Documented By: JOHNNY Azelastine HCl (Azelastine Hcl Nasal 137 Mcg/[place] 30 Ml) 2 spray NOSTRIL-B DAILY [facility] Benzonatate (Benzonatate 100 Mg Capsule) 100 mg PO TID PRN PRN Reason: Cough Bisoprolol Fumarate (Bisoprolol Fumarate 5 Mg Tablet) 5 mg PO DAILY [facility] Brimonidine Tartrate (Brimonidine Tartrate 0.2% Oph 5 Ml Bottle) 1 drop EYE-BOTH BID [facility] Last Admin: 09/04/23 21:45 Dose: Not Given Documented By: JOHNNY Non-Admin Reason: Med Not Available Calcium Carbonate (Calcium Carbonate 750 Mg Tab.Chew) 750 mg PO Q4H PRN PRN Reason: Heartburn Dronedarone (Dronedarone Hcl 400 Mg Tablet) 400 mg PO BID [facility] Last Admin: 09/04/23 21:13 Dose: 400 mg Documented By: JOHNNY Finasteride (Finasteride 5 Mg Tablet) 5 mg PO DAILY [facility] Fluticasone Propionate (Fluticasone Propionate Nasal 16 Gm [place]) 2 spray NOSTRIL-B DAILY [facility] Fluticasone/Vilanterol (Fluticasone/Vilanterol 200/25 Blst.W.Dev) 1 puff INHALE RDAILY [facility] Ceftriaxone Sodium 1 gm/ (Sodium Chloride) 50 mls @ 100 mls/hr IV Q24H [facility] Vancomycin HCl 1,000 mg/ (Sodium Chloride) 270 mls @ 270 mls/hr IV Q24H [facility] Magnesium Hydroxide (Milk Of Magnesia 30 Ml Oral.Susp) 30 ml PO DAILY PRN PRN Reason: Constipation Melatonin (Melatonin 3 Mg Tablet) 6 mg PO BEDTIME PRN PRN Reason: Insomnia Montelukast Sodium (Montelukast Sodium 10 Mg Tablet) 10 mg PO DAILY@1200 [facility] Multivitamins/Vitamin C (Multivitamin Tablet) 1 tab PO DAILY [facility] Pharmacy Consult (Consult Rx Vancomycin Dosing) 1 each MISCELLANE DAILY PRN PRN Reason: Consult order Polyethylene Glycol (Polyethylene Glycol 3350 17 Gm Powd.Pack) 17 gm PO DAILY PRN PRN Reason: Constipation Last Admin: 09/04/23 21:13 Dose: 17 gm Documented By: JOHNNY Sodium Chloride (0.9 % Sodium Chloride Flush 3 Ml Syringe) 3 ml IVFLUSH [facility] Last Admin: 09/05/23 00:27 Dose: Not Given Documented By: JOHNNY Non-Admin Reason: Patient Asleep Tiotropium Petros (Tiotropium Petros 2.5 Mcg 1 Puff/2.5 Mcg Mist.Inhal) 2 puff INHALE RDAILY [facility] Labs 09/05/23 06:24 09/05/23 06:25 Labs: Laboratory Results - last 24 hr 09/04/23 09/04/23 09/04/23 13:29 13:53 16:02 MCV 95.7 MCH 32.8 MCHC 34.3 RDW 13.5 Plt Count 227 D MPV 11.3 Immature Gran % (Auto) 0.4 Neut % (Auto) 64.3 Lymph % (Auto) 19.1 L [place] % (Auto) 14.0 H Eos % (Auto) 1.4 Baso % (Auto) 0.8 Lymph # (Auto) 1.5 Caroline # (Auto) 1.1 Eos # (Auto) 0.1 Baso # (Auto) 0.1 Abs Immat Gran (auto) 0.03 Absolute Neuts (auto) 5.0 Absolute Nucleated RBC 0.000 Nucleated RBC % (auto) 0.0 PT 15.3 H INR 1.3 H Anion Gap 15 Estim Creat Clear Calc 31.5 Estimated GFR 28 Random Glucose 95 Lactic Acid 1.5 Calcium 9.8 D Magnesium 2.2 Total Bilirubin 1.5 H AST 29 ALT 21 Alkaline Phosphatase 72 Troponin I High Sens 30.7 B-Natriuretic Peptide 98 Total Protein 7.2 Albumin 3.7 Lipase 17 Urine Color Yellow Urine Appearance Clear Urine pH 8.0 Ur Specific [place] 1.010 Urine Protein Negative Urine Glucose (UA) Negative Urine Ketones Negative Urine Blood Negative Urine Nitrite Negative Ur Leukocyte Esterase Small (1+) H Urine RBC 0-2 Urine WBC 6-10 H Ur Squamous Epith Cells 0-2 Urine Bacteria None Seen Hyaline Casts 0-2 09/05/23 09/05/23 06:24 06:25 MCV 97.3 MCH 32.4 MCHC 33.2 RDW 13.6 Plt Count 196 MPV 11.5 Immature Gran % (Auto) 0.7 H Neut % (Auto) 59.3 Lymph % (Auto) 21.6 Caroline % (Auto) 16.3 H Eos % (Auto) 1.6 Baso % (Auto) 0.5 Lymph # (Auto) 1.6 Caroline # (Auto) 1.2 Eos # (Auto) 0.1 Baso # (Auto) 0.0 Abs Immat Gran (auto) 0.05 H Absolute Neuts (auto) 4.4 Absolute Nucleated RBC 0.000 Nucleated RBC % (auto) 0.0 PT INR Anion Gap 15 Estim Creat Clear Calc 38.1 Estimated GFR 35 Random Glucose 88 Lactic Acid Calcium 9.5 Magnesium 2.2 Total Bilirubin AST ALT Alkaline Phosphatase Troponin I High Sens B-Natriuretic Peptide Total Protein Albumin Lipase Urine Color Urine Appearance Urine pH Ur Specific [place] Urine Protein Urine Glucose (UA) Urine Ketones Urine Blood Urine Nitrite Ur Leukocyte Esterase Urine RBC Urine WBC Ur Squamous Epith Cells Urine Bacteria Hyaline Casts Assessment and Plan (1) Acute hypoxic respiratory failure: Status: Resolved Plan 78-year-old man admitted with healthcare associated pneumonia hydronephrosis and ETELVINA Hydronephrosis Patient with Nausea and poor appetite Abdominal CT shows mild hydronephrosis of right kidney due to obstructing stone in the proximal right ureter, 1.3 cm stone in the right renal pelvis Antiemetics as needed zosyn Urology consultation>possible urological procedure today Pneumonia. CT scan confirmed no new pna Seems less likely as patient is not hypoxic or sob Chest CT shows stable bilateral airspace disease with multiple calcified and noncalcified pulmonary nodules will stop vancomycin, continue zosyn for renal stone ETELVINA. Creat trending down Multifactorial secondary to recent Lasix, hypovolemia, hydronephrosis and poor appetite Gentle IV fluids Nephrology consultation lasix stopped History of atrial flutter, paroxysmal Continue BB and Multaq hold Eliquis for urological procedure BPH Continue finasteride Mild intermittent asthma/COPD overlap No exacerbation Continue home inhalers Hyperlipidemia Continue statin DVT prophylaxis with eliquis, hold for urological procedure attending Dr. Mayo Full code continue hospital stay for treatment of healthcare associated pneumonia requiring IV antibiotics, ETELVINA requiring IV fluids and specialty consultation. Due to patient's age he is at high risk for decompensation. Quality Stroke Does the patient have a stroke diagnosis?: No VTE Prior VTE?: No VTE Risk Level:: Medical - moderate - high VTE Device Contraindication: Treatment Not Indicated VTE Drug Contraindication: N/A - Med Ordered
[2023-09-05] MEDS: 0.9 % Sodium Chloride Flush 3 ML SYRINGE IVFLUSH ×2 (09:10→20:47)
[2023-09-05] MEDS: allopurinoL 100 MG TABLET PO (09:11)
[2023-09-05] MEDS: Dronedarone HCl 400 MG TABLET PO ×2 (09:11→20:46)
[2023-09-05] MEDS: Multivitamin TABLET 1 TAB PO (09:11)
[2023-09-05] MEDS: Finasteride 5 MG TABLET PO (09:12)
--- NOTE | 2023-09-05 09:30 | MHC.CM.PN ---
IMM AND FORM DELIVERED. PT LIVES WITH SPOUSE. INDEPENDENT WITH MOBILITY BUT USES A WALKER NEEDED. + HCP ON FILE. PCP DR. CHRISTIAN WEBB DP: HOME, NO SERVICES ANTICIPATED. SPOUSE WILL TRANSPORT HOME. CM WILL CONTINUE TO FOLLOW FOR ANY CHANGE TO DC PLAN/NEEDS.
--- NOTE | 2023-09-05 09:55 | PC.NURSE ---
BP 133/87 pulse 51-54 range,BEATRICE Stewart notified Zebeta held per Pat
[2023-09-05] MEDS: 0.9 % Sodium Chloride 1,000 ML 100 ML IVCONT ×3 (10:22→21:55)
--- NOTE | 2023-09-05 11:14 | P.CNUR_ITS ---
History of Present Illness Consult details Consult date: 09/05/23 Narrative: CC: Right mid ureter obstructing stone with elevated creatinine 78-year-old male Recent admission to [facility] with facial cellulitis and hypoxic respiratory failure. Comes back with history of nausea, poor appetite. Had thought this was secondary to antibiotics. Creatinine 1.86 Imaging - CT Mild hydronephrosis of right kidney due to an obstructing stone in the proximal right ureter. There is a 1.3 cm stone in the right renal pelvis. There are multiple additional nonobstructive bilateral renal calculi. Admitted for IV antibiotics. Will need cystoscopy with stent placement Review of Systems 2 Constitutional: Constitutional: Reports as per HPI and Reports no additional constitutional complaints Cardiovascular: Cardiovascular: Reports as per HPI and Reports no additional cardiovascular complaints Respiratory: Respiratory: Reports as per HPI and Reports no additional respiratory complaints Gastrointestinal: Gastrointestinal: Reports as per HPI and Reports no additional gastrointestinal complaints Genitourinary: Genitourinary: Reports as per HPI Musculoskeletal: Musculoskeletal: Reports no additional musculoskeletal complaints and Reports as per HPI Neurologic: Reports system reviewed and no additional complaints, except as documented and Reports as per HPI [facility] Past Medical History Medical History Pulmonary nodules Chronic restrictive lung disease Chronic renal disease Nonsustained ventricular tachycardia PVCs (premature ventricular contractions) CAD (coronary artery disease) Dyspnea Chronic allergic rhinitis Asthma Sarcoidosis Family History Family History Other Asthma Surgical History Surgical History Stented coronary artery Social History Social History Household Members: Spouse Housing: House Do you presently have visiting nurse or other home services: No Patient Tobacco Use Status: Never used Tobacco Tobacco use type: Cigar Smoked in Last 30 Days: No e-Cigarette/Vaping Use: Never Used Second Hand Smoke Exposure: No Use of substances other than those prescribed or required for medical reasons: No Currently Displaying Signs/Symptoms of Drug Intoxication Withdrawal: No Any prior treatment program specific to substance use: No Have you been hit, kicked, punched, or otherwise hurt by someone within the past year? If so, by whom?: No Do you feel safe in your current relationship?: Yes Is there a partner from a previous relationship who is making you feel unsafe now?: No Are you made to feel afraid or neglected: No Advance Directives: No Advance Directives Information Provided: Yes Do you have a plan to hurt others: No Plan Recently lost weight without trying: Unsure How much weight loss: Unsure Eating poorly because of decreased appetite: Yes Nutrition screen score: 5 Nutrition Risks: Poor intake 0-25% >4 days Poor oral hygiene: No service: Yes Meds Allergies Allergy/AdvReac Type Severity Reaction Status Date / Time gadobenic acid [Multihance] Allergy Severe Rash Verified 09/04/23 12:59 azithromycin Allergy Intermediate HIVES Verified 09/04/23 12:59 [From ZITHROMAX Z-JOYCE] Iodinated Contrast Media Allergy Intermediate HIVES Verified 09/04/23 12:59 [IV CONTRAST] Penicillins Allergy Mild RASH Verified 09/04/23 12:59 Active Medications: Current Medications Acetaminophen (Acetaminophen 325 Mg Tablet) 650 mg PO Q6H PRN PRN Reason: Pain, Mild (Pain Scale 1-3), fever or headache Albuterol Sulfate (Albuterol Sulfate 90 Mcg 8 Gm Inhaler) 2 puff INHALE Q6H PRN PRN Reason: shortness of breath or wheezing Allopurinol (Allopurinol 100 Mg Tablet) 100 mg PO DAILY [facility] Last Admin: 09/05/23 09:11 Dose: 100 mg Apixaban (Apixaban 5 Mg Tablet) 5 mg PO BID [facility] Atorvastatin Calcium (Atorvastatin Calcium 80 Mg Tablet) 80 mg PO BEDTIME [facility] Last Admin: 09/04/23 21:13 Dose: 80 mg Azelastine HCl (Azelastine Hcl Nasal 137 Mcg/[place] 30 Ml) 2 spray NOSTRIL-B DAILY [facility] Last Admin: 09/05/23 09:13 Dose: Not Given Benzonatate (Benzonatate 100 Mg Capsule) 100 mg PO TID PRN PRN Reason: Cough Bisoprolol Fumarate (Bisoprolol Fumarate 5 Mg Tablet) 5 mg PO DAILY [facility] Last Admin: 09/05/23 09:12 Dose: 5 mg Brimonidine Tartrate (Brimonidine Tartrate 0.2% Oph 5 Ml Bottle) 1 drop EYE- BOTH BID [facility] Last Admin: 09/05/23 09:15 Dose: Not Given Calcium Carbonate (Calcium Carbonate 750 Mg Tab.Chew) 750 mg PO Q4H PRN PRN Reason: Heartburn Dronedarone (Dronedarone Hcl 400 Mg Tablet) 400 mg PO BID [facility] Last Admin: 09/05/23 09:11 Dose: 400 mg Finasteride (Finasteride 5 Mg Tablet) 5 mg PO DAILY [facility] Last Admin: 09/05/23 09:12 Dose: 5 mg Fluticasone Propionate (Fluticasone Propionate Nasal 16 Gm [place]) 2 spray NOSTRIL-B DAILY [facility] Last Admin: 09/05/23 09:14 Dose: Not Given Fluticasone/Vilanterol (Fluticasone/Vilanterol 200/25 Blst.W.Dev) 1 puff INHALE RDAILY [facility] Ceftriaxone Sodium 1 gm/ (Sodium Chloride) 50 mls @ 100 mls/hr IV Q24H [facility] Vancomycin HCl 1,000 mg/ (Sodium Chloride) 270 mls @ 270 mls/hr IV Q24H [facility] Sodium Chloride (Ns) 1,000 mls @ 100 mls/hr IVCONT .Q10H [facility] Last Admin: 09/05/23 10:22 Dose: 100 mls/hr Magnesium Hydroxide (Milk Of Magnesia 30 Ml Oral.Susp) 30 ml PO DAILY PRN PRN Reason: Constipation Melatonin (Melatonin 3 Mg Tablet) 6 mg PO BEDTIME PRN PRN Reason: Insomnia Montelukast Sodium (Montelukast Sodium 10 Mg Tablet) 10 mg PO DAILY@1200 [facility] Multivitamins/Vitamin C (Multivitamin Tablet) 1 tab PO DAILY [facility] Last Admin: 09/05/23 09:11 Dose: 1 tab Pharmacy Consult (Consult Rx Vancomycin Dosing) 1 each MISCELLANE DAILY PRN PRN Reason: Consult order Polyethylene Glycol (Polyethylene Glycol 3350 17 Gm Powd.Pack) 17 gm PO DAILY PRN PRN Reason: Constipation Last Admin: 09/04/23 21:13 Dose: 17 gm Sodium Chloride (0.9 % Sodium Chloride Flush 3 Ml Syringe) 3 ml IVFLUSH QSHIFT [facility] Last Admin: 09/05/23 09:10 Dose: 3 ml Tiotropium [place] (Tiotropium [place] 2.5 Mcg 1 Puff/2.5 Mcg Mist.Inhal) 2 puff INHALE RDAILY [facility] Home Medications ?Medication ?Instructions ?Recorded ?Confirmed ?Last Taken ?Type allopurinol 100 mg tablet 100 mg PO DAILY 04/21/20 09/04/23 08/31/23 History montelukast 10 mg tablet 10 mg PO DAILY@1200 04/21/20 09/04/23 08/31/23 History potassium citrate 10 mEq (1,080 10 meq PO BID 02/07/23 09/04/23 08/31/23 History mg) tablet,extended release finasteride 5 mg tablet 5 mg PO DAILY 06/29/23 09/04/23 08/19/23 History brimonidine 0.1 % eye drops 1 drp ophthalmic (eye) BID 08/21/23 09/04/23 08/20/23 History (Alphagan P) dronedarone 400 mg tablet (Multaq) 400 mg PO BID 08/21/23 09/04/23 08/31/23 History Prevagen 1 cap PO DAILY 09/04/23 09/04/23 Unknown History atorvastatin 80 mg tablet 80 mg PO BEDTIME 09/04/23 09/04/23 09/03/23 History azelastine 137 mcg-fluticasone 50 2 spray intranasal DAILY 09/04/23 09/04/23 Unknown History mcg/spray nasal spray (Dymista) furosemide 40 mg tablet 40 mg PO DAILY 09/04/23 09/04/23 08/31/23 History mometasone-formoterol HFA 200 1 puff inhalation BID 09/04/23 09/04/23 08/31/23 History mcg-5 mcg/actuation aerosol inhaler (Dulera) multivitamin 1 tab PO DAILY 09/04/23 09/04/23 09/03/23 History Physical Exam 2 Vital Signs: Vital Signs: Last Vital Signs Temp 96.8 F 09/05/23 08:00 Pulse 51 09/05/23 09:34 Resp 18 09/05/23 08:00 BP 132/87 09/05/23 09:34 Pulse Ox 96 09/05/23 08:00 O2 Del Method Room Air 09/05/23 08:00 BMI result Body Mass Index 30.5 Const: General: cooperative, healthy appearing, comfortable and no acute distress Orientation/consciousness: patient oriented x3 HEENT: Face and sinus: Yes normal facial exam Mouth: moist mucous membranes Neck: Neck: Yes normal visual inspection, Yes full ROM and Yes trachea midline Chest: Chest palpation & inspection: normal inspection of the chest Resp: Effort & Inspection: normal respiratory effort, able to speak in complete sentences and no respiratory distress GI: Inspection: Yes normal to inspection Back/Spine/Pelvis: Cervical Spine: normal cervical lordosis Thoracic/Lumbar Spine: thoracic and lumbar spine normal to inspection Skin: General skin exam: no rashes or lesions noted Neuro: General: patient oriented x3, tone normal and moves all extremities Extrem: General: Yes normal to inspection and Yes capillary refill normal Results Labs 09/05/23 06:24 09/05/23 06:25 Labs: Abnormal lab results 09/04/23 09/04/23 09/05/23 Range/Units 13:29 13:53 06:24 RBC 3.69 L 3.77 L (4.60-5.80) X10*6/uL Hgb 12.1 L 12.2 L (14.0-18.0) g/dl Hct 35.3 L 36.7 L (42.0-52.0) % Immature Gran % (Auto) 0.7 H (0.0-0.4) % Lymph % (Auto) 19.1 L (20-40) % [place] % (Auto) 14.0 H 16.3 H (2-11) % Abs Immat Gran (auto) 0.05 H (0.00-0.03) X10*3/uL PT 15.3 H (11.1-13.3) SEC INR 1.3 H (0.9-1.1) BUN 29 H (9-16) mg/dL Creatinine 2.24 H (0.5-1.4) mg/dL Total Bilirubin 1.5 H (0.0-1.0) mg/dL Ur Leukocyte Esterase Small (1+) H (Negative) Urine WBC 6-10 H (0-5) /HPF 09/05/23 Range/Units 06:25 RBC (4.60-5.80) X10*6/uL Hgb (14.0-18.0) g/dl Hct (42.0-52.0) % Immature Gran % (Auto) (0.0-0.4) % Lymph % (Auto) (20-40) % [place] % (Auto) (2-11) % Abs Immat Gran (auto) (0.00-0.03) X10*3/uL PT (11.1-13.3) SEC INR (0.9-1.1) BUN 24 H (9-16) mg/dL Creatinine 1.86 H (0.5-1.4) mg/dL Total Bilirubin (0.0-1.0) mg/dL Ur Leukocyte Esterase (Negative) Urine WBC (0-5) /HPF Short CBC 09/04/23 09/05/23 Range/Units 13:29 06:24 WBC 7.8 7.4 (4.8-10.8) X10*3/uL Hgb 12.1 L 12.2 L (14.0-18.0) g/dl Hct 35.3 L 36.7 L (42.0-52.0) % Plt Count 227 D 196 (160-400) X10*3/uL BMP 09/04/23 09/05/23 13:29 06:25 Sodium 137 139 Potassium 4.0 3.9 Chloride 102 105 Carbon Dioxide 24 23 BUN 29 H 24 H Creatinine 2.24 H 1.86 H Calcium 9.8 D 9.5 Liver Function 09/04/23 Range/Units 13:29 Total Bilirubin 1.5 H (0.0-1.0) mg/dL AST 29 (5-37) U/L ALT 21 (0-40) U/L Alkaline Phosphatase 72 (39-117) U/L Albumin 3.7 (3.5-5.0) g/dL Urine 09/04/23 Range/Units 13:53 Urine Color Yellow Urine Appearance Clear Urine pH 8.0 (5.0-9.0) Ur Specific [place] 1.010 (1.005-1.025) Urine Protein Negative (Neg-Trace) mg/dL Urine Glucose (UA) Negative (Negative) mg/dL All other labs normal. Assessment and Plan (1) ETELVINA (acute kidney injury): Status: Acute (2) Ureteric stone: Status: Acute Plan Risks, benefits and alternatives to therapy were discussed. These include but are not limited to infection, bleeding, damage to local organs and tissues, need for further interventions. Anesthetic risks regarding cardiac arrhythmia, blood clots, and potential mortality were discussed. The patient understands the typical recovery time and the outpatient nature of the procedure. After consideration of these risks the patient gives full informed consent and they wish to move ahead with the procedure. Cystoscopy, right retrograde, right stent placement Procedures Date of Service Date of Service: 09/05/23
[2023-09-05] MEDS: Montelukast Sodium 10 MG TABLET PO (11:22)
--- NOTE | 2023-09-05 12:12 | MHC.CLN ---
RE: CONSULT FOR POOR PO PT IS CURRENTLY NPO WHEN DIET ADVANCES; WILL ADD SUPPLEMENTS TO INCREASE PO INTAKE FOLLOWING WITH TEAM
--- NOTE | 2023-09-05 14:01 | PM.CNPUL ---
History of Present Illness History of Present Illness Consult date: 09/05/23 Chief complaint: HCAP, momo Narrative: 78-year-old gentleman with underlying history of sarcoidosis followed by Dr. Patricia admitted on 09/04/2023 with lethargy and poor appetite and empirically treated for sepsis with possible pulmonary source. Further workup demonstrated persistent mild bilateral infiltrates that appear to be chronic and hydronephrosis with obstructing stone. Patient respiratory status remains at baseline. Review of Systems Constitutional: Constitutional: Denies daytime sleepiness, Denies excessive sweating, Denies fatigue, Denies fever(s), Denies lethargy, Denies malaise, Denies night sweats, Denies snoring and Denies weight loss Eyes: Eyes: Denies blurry vision and Denies itchy eyes ENT: Denies nasal congestion, Denies post nasal drip, Denies sinus pain, Denies sinus pressure and Denies other ( Thrush) Cardiovascular: Cardiovascular: Denies chest pain, Denies pedal edema, Denies dyspnea, Denies orthopnea and Denies paroxysmal nocturnal dyspnea Respiratory: Respiratory: Denies cough, Denies hemoptysis, Denies excessive phlegm production, Denies dyspnea, Denies snoring and Denies wheezing Gastrointestinal: Gastrointestinal: Denies abdominal pain and Denies heartburn Musculoskeletal: Musculoskeletal: Denies myalgias, Denies arthralgias and Denies joint swelling Integumentary/Breasts: Skin/Breast: Denies rash Neurologic: Denies memory loss and Denies seizure-like activity Psychiatric: Psychiatric: Denies abnormal sleep pattern, Denies anxiety and Denies memory loss Endocrine: Endocrine: Denies excessive sweating, Denies fatigue and Denies heat intolerance Hematologic/Lymphatic: Hematologic/Lymphatic: Denies easy bruising Allergic/Immunologic: Allergic/Immunologic: Denies itchy eyes, Denies seasonal rhinorrhea and Denies wheezing PMFSH Past Medical History Medical History Pulmonary nodules Chronic restrictive lung disease Chronic renal disease Nonsustained ventricular tachycardia PVCs (premature ventricular contractions) CAD (coronary artery disease) Dyspnea Chronic allergic rhinitis Asthma Sarcoidosis Family History Family History Other Asthma Surgical History Surgical History Stented coronary artery Social History Social History Household Members: Spouse Housing: House Do you presently have visiting nurse or other home services: No Patient Tobacco Use Status: Never used Tobacco Tobacco use type: Cigar Smoked in Last 30 Days: No e-Cigarette/Vaping Use: Never Used Second Hand Smoke Exposure: No Use of substances other than those prescribed or required for medical reasons: No Currently Displaying Signs/Symptoms of Drug Intoxication Withdrawal: No Any prior treatment program specific to substance use: No Have you been hit, kicked, punched, or otherwise hurt by someone within the past year? If so, by whom?: No Do you feel safe in your current relationship?: Yes Is there a partner from a previous relationship who is making you feel unsafe now?: No Are you made to feel afraid or neglected: No Advance Directives: No Advance Directives Information Provided: Yes Do you have a plan to hurt others: No Plan Recently lost weight without trying: Unsure How much weight loss: Unsure Eating poorly because of decreased appetite: Yes Nutrition screen score: 5 Nutrition Risks: Poor intake 0-25% >4 days Poor oral hygiene: No service: Yes Meds Allergies Allergy/AdvReac Type Severity Reaction Status Date / Time gadobenic acid [Multihance] Allergy Severe Rash Verified 09/04/23 12:59 azithromycin Allergy Intermediate HIVES Verified 09/04/23 12:59 [From ZITHROMAX Z-JOYCE] Iodinated Contrast Media Allergy Intermediate HIVES Verified 09/04/23 12:59 [IV CONTRAST] Penicillins Allergy Mild RASH Verified 09/04/23 12:59 Active Medications: Current Medications Acetaminophen (Acetaminophen 325 Mg Tablet) 650 mg PO Q6H PRN PRN Reason: Pain, Mild (Pain Scale 1-3), fever or headache Albuterol Sulfate (Albuterol Sulfate 90 Mcg 8 Gm Inhaler) 2 puff INHALE Q6H PRN PRN Reason: shortness of breath or wheezing Allopurinol (Allopurinol 100 Mg Tablet) 100 mg PO DAILY [facility] Last Admin: 09/05/23 09:11 Dose: 100 mg Apixaban (Apixaban 5 Mg Tablet) 5 mg PO BID [facility] Atorvastatin Calcium (Atorvastatin Calcium 80 Mg Tablet) 80 mg PO BEDTIME [facility] Last Admin: 09/04/23 21:13 Dose: 80 mg Azelastine HCl (Azelastine Hcl Nasal 137 Mcg/[place] 30 Ml) 2 spray NOSTRIL-B DAILY [facility] Last Admin: 09/05/23 09:13 Dose: Not Given Benzonatate (Benzonatate 100 Mg Capsule) 100 mg PO TID PRN PRN Reason: Cough Bisoprolol Fumarate (Bisoprolol Fumarate 5 Mg Tablet) 5 mg PO DAILY [facility] Last Admin: 09/05/23 09:12 Dose: 5 mg Brimonidine Tartrate (Brimonidine Tartrate 0.2% Oph 5 Ml Bottle) 1 drop EYE-BOTH BID [facility] Last Admin: 09/05/23 09:15 Dose: Not Given Calcium Carbonate (Calcium Carbonate 750 Mg Tab.Chew) 750 mg PO Q4H PRN PRN Reason: Heartburn Dronedarone (Dronedarone Hcl 400 Mg Tablet) 400 mg PO BID [facility] Last Admin: 09/05/23 09:11 Dose: 400 mg Finasteride (Finasteride 5 Mg Tablet) 5 mg PO DAILY [facility] Last Admin: 09/05/23 09:12 Dose: 5 mg Fluticasone Propionate (Fluticasone Propionate Nasal 16 Gm [place]) 2 spray NOSTRIL-B DAILY [facility] Last Admin: 09/05/23 09:14 Dose: Not Given Fluticasone/Vilanterol (Fluticasone/Vilanterol 200/25 Blst.W.Dev) 1 puff INHALE RDAILY [facility] Last Admin: 09/05/23 11:14 Dose: Not Given Ceftriaxone Sodium 1 gm/ (Sodium Chloride) 50 mls @ 100 mls/hr IV Q24H [facility] Vancomycin HCl 1,000 mg/ (Sodium Chloride) 270 mls @ 270 mls/hr IV Q24H [facility] Sodium Chloride (Ns) 1,000 mls @ 100 mls/hr IVCONT .Q10H [facility] Last Admin: 09/05/23 10:22 Dose: 100 mls/hr Magnesium Hydroxide (Milk Of Magnesia 30 Ml Oral.Susp) 30 ml PO DAILY PRN PRN Reason: Constipation Melatonin (Melatonin 3 Mg Tablet) 6 mg PO BEDTIME PRN PRN Reason: Insomnia Montelukast Sodium (Montelukast Sodium 10 Mg Tablet) 10 mg PO DAILY@1200 [facility] Last Admin: 09/05/23 11:22 Dose: 10 mg Multivitamins/Vitamin C (Multivitamin Tablet) 1 tab PO DAILY [facility] Last Admin: 09/05/23 09:11 Dose: 1 tab Pharmacy Consult (Consult Rx Vancomycin Dosing) 1 each MISCELLANE DAILY PRN PRN Reason: Consult order Polyethylene Glycol (Polyethylene Glycol 3350 17 Gm Powd.Pack) 17 gm PO DAILY PRN PRN Reason: Constipation Last Admin: 09/04/23 21:13 Dose: 17 gm Sodium Chloride (0.9 % Sodium Chloride Flush 3 Ml Syringe) 3 ml IVFLUSH QSHIFT [facility] Last Admin: 09/05/23 09:10 Dose: 3 ml Tiotropium [place] (Tiotropium [place] 2.5 Mcg 1 Puff/2.5 Mcg Mist.Inhal) 2 puff INHALE RDAILY [facility] Last Admin: 09/05/23 11:14 Dose: Not Given Home Medications ?Medication ?Instructions ?Recorded ?Confirmed ?Last Taken ?Type allopurinol 100 mg tablet 100 mg PO DAILY 04/21/20 09/04/23 08/31/23 History montelukast 10 mg tablet 10 mg PO DAILY@1200 04/21/20 09/04/23 08/31/23 History potassium citrate 10 mEq (1,080 10 meq PO BID 02/07/23 09/04/23 08/31/23 History mg) tablet,extended release finasteride 5 mg tablet 5 mg PO DAILY 06/29/23 09/04/23 08/19/23 History brimonidine 0.1 % eye drops 1 drp ophthalmic (eye) BID 08/21/23 09/04/23 08/20/23 History (Alphagan P) dronedarone 400 mg tablet (Multaq) 400 mg PO BID 08/21/23 09/04/23 08/31/23 History Prevagen 1 cap PO DAILY 09/04/23 09/04/23 Unknown History atorvastatin 80 mg tablet 80 mg PO BEDTIME 09/04/23 09/04/23 09/03/23 History azelastine 137 mcg-fluticasone 50 2 spray intranasal DAILY 09/04/23 09/04/23 Unknown History mcg/spray nasal spray (Dymista) furosemide 40 mg tablet 40 mg PO DAILY 09/04/23 09/04/23 08/31/23 History mometasone-formoterol HFA 200 1 puff inhalation BID 09/04/23 09/04/23 08/31/23 History mcg-5 mcg/actuation aerosol inhaler (Dulera) multivitamin 1 tab PO DAILY 09/04/23 09/04/23 09/03/23 History Physical Exam Vital Signs: Vital Signs: Last Vital Signs Temp 96.8 F 09/05/23 08:00 Pulse 51 09/05/23 09:34 Resp 18 09/05/23 08:00 BP 132/87 09/05/23 09:34 Pulse Ox 96 09/05/23 08:00 O2 Del Method Room Air 09/05/23 08:00 BMI result Body Mass Index 30.5 Const: General: no acute distress and alert Nutritional Appearance: not obese Orientation/consciousness: Other orientation findings ( oriented) HEENT: Head: Yes atraumatic Eyes: General: appearance normal, both eyes and all related structures Sclerae: sclerae normal EOM: EOMs intact bilaterally Neck: Neck: Yes supple Lymphatic: no lymphadenopathy noted Resp: Effort & Inspection: normal respiratory effort and no use of accessory muscles Auscultation: clear to auscultation bilaterally Cardio: Rate: regular rate Rhythm: regular rhythm Heart sounds: no gallops, no murmurs and no rubs Skin: General skin exam: other ( warm) Extrem: General: No clubbing, No cyanosis and No edema Results Laboratory Findings 09/05/23 06:24 09/05/23 06:25 ABG, PT/INR, D-dimer: PT/INR, D-dimer PT 15.3 SEC (11.1-13.3) H 09/04/23 13:29 INR 1.3 (0.9-1.1) H 09/04/23 13:29 Abnormal lab findings: Abnormal Labs 09/04/23 09/04/23 09/05/23 13:29 13:53 06:24 RBC 3.69 L 3.77 L Hgb 12.1 L 12.2 L Hct 35.3 L 36.7 L Immature Gran % (Auto) 0.7 H Lymph % (Auto) 19.1 L [place] % (Auto) 14.0 H 16.3 H Abs Immat Gran (auto) 0.05 H PT 15.3 H INR 1.3 H BUN 29 H Creatinine 2.24 H Total Bilirubin 1.5 H Ur Leukocyte Esterase Small (1+) H Urine WBC 6-10 H 09/05/23 06:25 RBC Hgb Hct Immature Gran % (Auto) Lymph % (Auto) [place] % (Auto) Abs Immat Gran (auto) PT INR BUN 24 H Creatinine 1.86 H Total Bilirubin Ur Leukocyte Esterase Urine WBC Microbiology: Microbiology 09/04/23 Unknown Urine clean catch - Clean Catch Midstream Urine Culture - Final No growth. Assessment and Plan (1) Sarcoidosis: Status: Acute (2) Pneumonia: Status: Acute (3) Abnormal CT scan of lung: Status: Acute Plan Impression: 78-year-old gentleman admitted with sepsis that appears to have source secondary to obstructing stone. No evidence of an acute pneumonia at this time. Underlying sarcoidosis and asthma/COPD overlap syndrome. Recommendations: Agree with broad-spectrum antibiotic coverage and decompression of hydronephrosis. Procedures Date of Service Date of Service: 09/05/23
--- NOTE | 2023-09-05 15:08 | P.CONNP_ITS ---
History of Present Illness Reason for Consult Consult date: 09/05/23 Reason for consult: ETELVINA Chief Complaint Chief complaint: HCAP, etelvina History of Present Illness Narrative: 70-year-old man presented to the ER with lethargy and poor appetite over the last several days. Patient was discharged from [facility] on 08/25/2023. Attempt was treated for sepsis secondary to facial cellulitis and acute hypoxic respiratory failure secondary to pneumonia. Patient reports he went home he felt better but then he started to feel worse and have episodes of wheezing. He was seen by his primary care provider who started him on Lasix for edema as well. Continuing on his oral antibiotics but began to feel nauseous and had very poor appetite so his stopped them short of the 10 days. Patient denies chest pain, shortness of breath, vomiting, diarrhea. Reported nausea with some loose stools and very poor appetite. In the ER, chest CT showed abdominal CT showed mild hydronephrosis of the right kidney due to an obstructing stone in the proximal right ureter, 1.3 cm stone in the right renal pelvis and stable airspace disease. Review of Systems Constitutional: Denies fever(s) and Denies weight loss Cardiovascular: Denies chest pain Respiratory: Denies cough and Denies hemoptysis Gastrointestinal: Denies abdominal pain, Denies diarrhea and Denies nausea Musculoskeletal: Denies back pain Denies focal weakness PMFSH Past Medical History Medical History (Updated 09/05/23 @ 14:03 by Anibal Bray MD) Pulmonary nodules Chronic restrictive lung disease Chronic renal disease Nonsustained ventricular tachycardia PVCs (premature ventricular contractions) CAD (coronary artery disease) Dyspnea Chronic allergic rhinitis Asthma Sarcoidosis Family History Family History Other Asthma Surgical History Surgical History (Updated 09/05/23 @ 14:45 by Amber Sequeira RN) H/O hernia repair Stented coronary artery Social History Social History Household Members: Spouse Housing: House Do you presently have visiting nurse or other home services: No Patient Tobacco Use Status: Current someday Tobacco user Tobacco use type: Cigar Smoked in Last 30 Days: No e-Cigarette/Vaping Use: Never Used Second Hand Smoke Exposure: No Use of substances other than those prescribed or required for medical reasons: No Currently Displaying Signs/Symptoms of Drug Intoxication Withdrawal: No Any prior treatment program specific to substance use: No Have you been hit, kicked, punched, or otherwise hurt by someone within the past year? If so, by whom?: No Do you feel safe in your current relationship?: Yes Is there a partner from a previous relationship who is making you feel unsafe now?: No Are you made to feel afraid or neglected: No Are you DNR?: No Advance Directives: No Advance Directives Information Provided: Yes Do you have a plan to hurt others: No Plan Recently lost weight without trying: Unsure How much weight loss: Unsure Eating poorly because of decreased appetite: Yes Nutrition screen score: 5 Nutrition Risks: Poor intake 0-25% >4 days Poor oral hygiene: No service: Yes Meds Allergies Allergy/AdvReac Type Severity Reaction Status Date / Time gadobenic acid [Multihance] Allergy Severe Rash Verified 09/05/23 14:38 azithromycin Allergy Intermediate HIVES Verified 09/05/23 14:38 [From ZITHROMAX Z-JOYCE] Iodinated Contrast Media Allergy Intermediate HIVES Verified 09/05/23 14:38 [IV CONTRAST] Penicillins Allergy Mild RASH Verified 09/05/23 14:38 Active Medications: Current Medications Acetaminophen (Acetaminophen 325 Mg Tablet) 650 mg PO Q6H PRN PRN Reason: Pain, Mild (Pain Scale 1-3), fever or headache Albuterol Sulfate (Albuterol Sulfate 90 Mcg 8 Gm Inhaler) 2 puff INHALE Q6H PRN PRN Reason: shortness of breath or wheezing Allopurinol (Allopurinol 100 Mg Tablet) 100 mg PO DAILY [facility] Last Admin: 09/05/23 09:11 Dose: 100 mg Apixaban (Apixaban 5 Mg Tablet) 5 mg PO BID [facility] Atorvastatin Calcium (Atorvastatin Calcium 80 Mg Tablet) 80 mg PO BEDTIME [facility] Last Admin: 09/04/23 21:13 Dose: 80 mg Azelastine HCl (Azelastine Hcl Nasal 137 Mcg/[place] 30 Ml) 2 spray NOSTRIL-B DAILY [facility] Last Admin: 09/05/23 09:13 Dose: Not Given Benzonatate (Benzonatate 100 Mg Capsule) 100 mg PO TID PRN PRN Reason: Cough Bisoprolol Fumarate (Bisoprolol Fumarate 5 Mg Tablet) 5 mg PO DAILY [facility] Last Admin: 09/05/23 14:06 Dose: Not Given Brimonidine Tartrate (Brimonidine Tartrate 0.2% Oph 5 Ml Bottle) 1 drop EYE- BOTH BID [facility] Last Admin: 09/05/23 09:15 Dose: Not Given Calcium Carbonate (Calcium Carbonate 750 Mg Tab.Chew) 750 mg PO Q4H PRN PRN Reason: Heartburn Dronedarone (Dronedarone Hcl 400 Mg Tablet) 400 mg PO BID [facility] Last Admin: 09/05/23 09:11 Dose: 400 mg Finasteride (Finasteride 5 Mg Tablet) 5 mg PO DAILY [facility] Last Admin: 09/05/23 09:12 Dose: 5 mg Fluticasone Propionate (Fluticasone Propionate Nasal 16 Gm [place]) 2 spray NOSTRIL-B DAILY [facility] Last Admin: 09/05/23 09:14 Dose: Not Given Fluticasone/Vilanterol (Fluticasone/Vilanterol 200/25 Blst.W.Dev) 1 puff INHALE RDAILY [facility] Last Admin: 09/05/23 11:14 Dose: Not Given Ceftriaxone Sodium 1 gm/ (Sodium Chloride) 50 mls @ 100 mls/hr IV Q24H [facility] Vancomycin HCl 1,000 mg/ (Sodium Chloride) 270 mls @ 270 mls/hr IV Q24H [facility] Sodium Chloride (Ns) 1,000 mls @ 100 mls/hr IVCONT .Q10H [facility] Last Admin: 09/05/23 10:22 Dose: 100 mls/hr Magnesium Hydroxide (Milk Of Magnesia 30 Ml Oral.Susp) 30 ml PO DAILY PRN PRN Reason: Constipation Melatonin (Melatonin 3 Mg Tablet) 6 mg PO BEDTIME PRN PRN Reason: Insomnia Montelukast Sodium (Montelukast Sodium 10 Mg Tablet) 10 mg PO DAILY@1200 [facility] Last Admin: 09/05/23 11:22 Dose: 10 mg Multivitamins/Vitamin C (Multivitamin Tablet) 1 tab PO DAILY [facility] Last Admin: 09/05/23 09:11 Dose: 1 tab Pharmacy Consult (Consult Rx Vancomycin Dosing) 1 each MISCELLANE DAILY PRN PRN Reason: Consult order Polyethylene Glycol (Polyethylene Glycol 3350 17 Gm Powd.Pack) 17 gm PO DAILY PRN PRN Reason: Constipation Last Admin: 09/04/23 21:13 Dose: 17 gm Sodium Chloride (0.9 % Sodium Chloride Flush 3 Ml Syringe) 3 ml IVFLUSH QSHIFT [facility] Last Admin: 09/05/23 09:10 Dose: 3 ml Tiotropium [place] (Tiotropium [place] 2.5 Mcg 1 Puff/2.5 Mcg Mist.Inhal) 2 puff INHALE RDAILY [facility] Last Admin: 09/05/23 11:14 Dose: Not Given Home Medications ?Medication ?Instructions ?Recorded ?Confirmed ?Last Taken ?Type allopurinol 100 mg tablet 100 mg PO DAILY 04/21/20 09/04/23 08/31/23 History montelukast 10 mg tablet 10 mg PO DAILY@1200 04/21/20 09/04/23 08/31/23 History potassium citrate 10 mEq (1,080 10 meq PO BID 02/07/23 09/04/23 08/31/23 History mg) tablet,extended release finasteride 5 mg tablet 5 mg PO DAILY 06/29/23 09/04/23 08/19/23 History brimonidine 0.1 % eye drops 1 drp ophthalmic (eye) BID 08/21/23 09/04/23 08/20/23 History (Alphagan P) dronedarone 400 mg tablet (Multaq) 400 mg PO BID 08/21/23 09/04/23 08/31/23 History Prevagen 1 cap PO DAILY 09/04/23 09/04/23 Unknown History atorvastatin 80 mg tablet 80 mg PO BEDTIME 09/04/23 09/04/23 09/03/23 History azelastine 137 mcg-fluticasone 50 2 spray intranasal DAILY 09/04/23 09/04/23 Unknown History mcg/spray nasal spray (Dymista) furosemide 40 mg tablet 40 mg PO DAILY 09/04/23 09/04/23 08/31/23 History mometasone-formoterol HFA 200 1 puff inhalation BID 09/04/23 09/04/23 08/31/23 History mcg-5 mcg/actuation aerosol inhaler (Dulera) multivitamin 1 tab PO DAILY 09/04/23 09/04/23 09/03/23 History Physical Exam Vital Signs: Last Vital Signs Temp 96.9 F 09/05/23 14:40 Pulse 61 09/05/23 14:40 Resp 18 09/05/23 14:40 BP 95/58 L 09/05/23 14:40 Pulse Ox 97 09/05/23 14:40 O2 Del Method Room Air 09/05/23 14:40 BMI result Body Mass Index 30.5 Awake. Comfortable. Neck is supple. Mucosa moist. Lungs bilateral scattered rhonchi. Heart S1-S2 heard no gallop. Abdomen soft. Extremities no edema. No involuntary movements. No myoclonus. Results Lab Results 09/05/23 06:24 09/05/23 06:25 Lab results: Chemistry 09/04/23 09/05/23 13:29 06:25 Sodium 137 139 Potassium 4.0 3.9 Carbon Dioxide 24 23 BUN 29 H 24 H Creatinine 2.24 H 1.86 H Calcium 9.8 D 9.5 Hematology 09/04/23 09/05/23 13:29 06:24 WBC 7.8 7.4 Hgb 12.1 L 12.2 L Plt Count 227 D 196 Urinalysis 09/04/23 13:53 Urine Color Yellow Urine Appearance Clear Urine pH 8.0 Ur Specific [place] 1.010 Urine Protein Negative Urine Glucose (UA) Negative Urine Ketones Negative Urine Blood Negative Urine Nitrite Negative Ur Leukocyte Esterase Small (1+) H Urine RBC 0-2 Urine WBC 6-10 H Ur Squamous Epith Cells 0-2 Hyaline Casts 0-2 Assessment and Plan (1) Ureteric stone: Status: Acute (2) Dehydration: Status: Acute (3) ETELVINA (acute kidney injury): Status: Acute Plan ETELVINA due to combination of obstructive uropathy and volume depletion. With IV hydration renal function is improving. He has been scheduled for urological workup including cystoscopy and stent placement. For now would recommend IV hydration keep intake more than output and avoid hypotension. Renal function should returned to baseline She will follow along with the team. Thank you Procedures Date of Service Date of Service: 09/05/23
--- NOTE | 2023-09-05 16:26 | PC.NURSE ---
Scheduled Recephin ordered by [place]. When hanging, [facility] alerted contraindication due to PCN allergy (Rash). Pat Patricia made aware. Per her, okay to give. Medication hung.
[2023-09-05] MEDS: cefTRIAXone sodium 1 GM in 0.9 % Sodium Chloride 50 ML IV (16:32)
--- NOTE | 2023-09-05 18:10 | MHC.SHP ---
Pre-Procedural Eval Section A - 24 Hr Update-Section A only Date of Service: 09/05/23 The patient is an INPATIENT: Yes The patient has been examined within 24 hours of the surgical procedure. The History & Physical has been completed within 30 days and I have reviewed it.: Yes Section B - Complete if H&P > 30 days Chief Complaint: ETELVINA, ureteral stone Allergies: Allergies Allergy/AdvReac Type Severity Reaction Status Date / Time gadobenic acid [Multihance] Allergy Severe Rash Verified 09/05/23 14:38 azithromycin Allergy Intermediate HIVES Verified 09/05/23 14:38 [From ZITHROMAX Z-JOYCE] Iodinated Contrast Media Allergy Intermediate HIVES Verified 09/05/23 14:38 [IV CONTRAST] Penicillins Allergy Mild RASH Verified 09/05/23 14:38 Plan Diagnosis/Plan: Unchanged I have reviewed the history and physical and performed a pertinent physical examination on my patient. No changes have occurred unless specified. Plan for Cystoscopy, right ureteral stent. Risks discussed included but not limited to, Irritative voiding symptoms, bladder spasms, urgency, blood in urine. Time Spent With Patient Time: Total time managing care of this patient today ____ minutes.
--- NOTE | 2023-09-05 18:15 | P.CONAN_ITS ---
[facility] Active Problems Active Problems: All Active Problems Abnormal CT scan of lung (Acute) Ureteric stone (Acute) Dehydration (Acute) Abdominal pain (Acute) Pneumonia (Acute) ETELVINA (acute kidney injury) (Acute) Pneumonia (Acute) Aspiration pneumonitis (Acute) ETELVINA (acute kidney injury) (Acute) Cellulitis of face (Acute) Atrial flutter (Acute) Asthma-COPD overlap syndrome (Acute) MARE (obstructive sleep apnea) (Acute) Cardiomyopathy (Acute) SOB (shortness of breath) on exertion (Acute) Chronic restrictive lung disease (Acute) Chronic renal disease (Acute) PVCs (premature ventricular contractions) (Acute) CAD (coronary artery disease) (Acute) Dyspnea (Acute) Chronic allergic rhinitis (Acute) Asthma (Acute) Sarcoidosis (Acute) Past Medical History Medical History Pulmonary nodules Chronic restrictive lung disease Chronic renal disease Nonsustained ventricular tachycardia PVCs (premature ventricular contractions) CAD (coronary artery disease) Dyspnea Chronic allergic rhinitis Asthma Sarcoidosis Family History Family History Other Asthma Family history of problems with anesthesia: No Surgical History Surgical History H/O hernia repair Stented coronary artery History of Problems with Anesthesia: No Social History Social History Household Members: Spouse Housing: House Do you presently have visiting nurse or other home services: No Patient Tobacco Use Status: Current someday Tobacco user Tobacco use type: Cigar Smoked in Last 30 Days: No e-Cigarette/Vaping Use: Never Used Second Hand Smoke Exposure: No Use of substances other than those prescribed or required for medical reasons: No Currently Displaying Signs/Symptoms of Drug Intoxication Withdrawal: No Any prior treatment program specific to substance use: No Have you been hit, kicked, punched, or otherwise hurt by someone within the past year? If so, by whom?: No Do you feel safe in your current relationship?: Yes Is there a partner from a previous relationship who is making you feel unsafe now?: No Are you made to feel afraid or neglected: No Are you DNR?: No Advance Directives: No Advance Directives Information Provided: Yes Do you have a plan to hurt others: No Plan Recently lost weight without trying: Unsure How much weight loss: Unsure Eating poorly because of decreased appetite: Yes Nutrition screen score: 5 Nutrition Risks: Poor intake 0-25% >4 days Poor oral hygiene: No service: Yes Meds Allergies Allergy/AdvReac Type Severity Reaction Status Date / Time gadobenic acid [Multihance] Allergy Severe Rash Verified 09/05/23 14:38 azithromycin Allergy Intermediate HIVES Verified 09/05/23 14:38 [From ZITHROMAX Z-JOYCE] Iodinated Contrast Media Allergy Intermediate HIVES Verified 09/05/23 14:38 [IV CONTRAST] Penicillins Allergy Mild RASH Verified 09/05/23 14:38 Active Medications: Current Medications Acetaminophen (Acetaminophen 325 Mg Tablet) 650 mg PO Q6H PRN PRN Reason: Pain, Mild (Pain Scale 1-3), fever or headache Albuterol Sulfate (Albuterol Sulfate 90 Mcg 8 Gm Inhaler) 2 puff INHALE Q6H PRN PRN Reason: shortness of breath or wheezing Allopurinol (Allopurinol 100 Mg Tablet) 100 mg PO DAILY [facility] Last Admin: 09/05/23 09:11 Dose: 100 mg Apixaban (Apixaban 5 Mg Tablet) 5 mg PO BID [facility] Atorvastatin Calcium (Atorvastatin Calcium 80 Mg Tablet) 80 mg PO BEDTIME [facility] Last Admin: 09/04/23 21:13 Dose: 80 mg Azelastine HCl (Azelastine Hcl Nasal 137 Mcg/[place] 30 Ml) 2 spray NOSTRIL-B DAILY [facility] Last Admin: 09/05/23 09:13 Dose: Not Given Benzonatate (Benzonatate 100 Mg Capsule) 100 mg PO TID PRN PRN Reason: Cough Bisoprolol Fumarate (Bisoprolol Fumarate 5 Mg Tablet) 5 mg PO DAILY [facility] Last Admin: 09/05/23 14:06 Dose: Not Given Brimonidine Tartrate (Brimonidine Tartrate 0.2% Oph 5 Ml Bottle) 1 drop EYE- BOTH BID [facility] Last Admin: 09/05/23 09:15 Dose: Not Given Calcium Carbonate (Calcium Carbonate 750 Mg Tab.Chew) 750 mg PO Q4H PRN PRN Reason: Heartburn Dronedarone (Dronedarone Hcl 400 Mg Tablet) 400 mg PO BID [facility] Last Admin: 09/05/23 09:11 Dose: 400 mg Finasteride (Finasteride 5 Mg Tablet) 5 mg PO DAILY [facility] Last Admin: 09/05/23 09:12 Dose: 5 mg Fluticasone Propionate (Fluticasone Propionate Nasal 16 Gm [place]) 2 spray NOSTRIL-B DAILY [facility] Last Admin: 09/05/23 09:14 Dose: Not Given Ceftriaxone Sodium 1 gm/ (Sodium Chloride) 50 mls @ 100 mls/hr IV Q24H [facility] Last Infusion: 09/05/23 17:02 Dose: Infused Sodium Chloride (Ns) 1,000 mls @ 100 mls/hr IVCONT .Q10H [facility] Last Admin: 09/05/23 10:22 Dose: 100 mls/hr Magnesium Hydroxide (Milk Of Magnesia 30 Ml Oral.Susp) 30 ml PO DAILY PRN PRN Reason: Constipation Melatonin (Melatonin 3 Mg Tablet) 6 mg PO BEDTIME PRN PRN Reason: Insomnia Montelukast Sodium (Montelukast Sodium 10 Mg Tablet) 10 mg PO DAILY@1200 [facility] Last Admin: 09/05/23 11:22 Dose: 10 mg Multivitamins/Vitamin C (Multivitamin Tablet) 1 tab PO DAILY [facility] Last Admin: 09/05/23 09:11 Dose: 1 tab Non-Formulary Medication (Dulera 200/5 Mcg) 1 inhalation INHALE RBID [facility] Pharmacy Consult (Consult Rx Vancomycin Dosing) 1 each MISCELLANE DAILY PRN PRN Reason: Consult order Polyethylene Glycol (Polyethylene Glycol 3350 17 Gm Powd.Pack) 17 gm PO DAILY PRN PRN Reason: Constipation Last Admin: 09/04/23 21:13 Dose: 17 gm Sodium Chloride (0.9 % Sodium Chloride Flush 3 Ml Syringe) 3 ml IVFLUSH QSHIFT [facility] Last Admin: 09/05/23 17:07 Dose: Not Given Tiotropium [place] (Tiotropium [place] 2.5 Mcg 1 Puff/2.5 Mcg Mist.Inhal) 2 puff INHALE RDAILY [facility] Last Admin: 09/05/23 11:14 Dose: Not Given Home Medications ?Medication ?Instructions ?Recorded ?Confirmed ?Last Taken ?Type allopurinol 100 mg tablet 100 mg PO DAILY 04/21/20 09/04/23 08/31/23 History montelukast 10 mg tablet 10 mg PO DAILY@1200 04/21/20 09/04/23 08/31/23 History potassium citrate 10 mEq (1,080 10 meq PO BID 02/07/23 09/04/23 08/31/23 History mg) tablet,extended release finasteride 5 mg tablet 5 mg PO DAILY 06/29/23 09/04/23 08/19/23 History brimonidine 0.1 % eye drops 1 drp ophthalmic (eye) BID 08/21/23 09/04/23 08/20/23 History (Alphagan P) dronedarone 400 mg tablet (Multaq) 400 mg PO BID 08/21/23 09/04/23 08/31/23 History Prevagen 1 cap PO DAILY 09/04/23 09/04/23 Unknown History atorvastatin 80 mg tablet 80 mg PO BEDTIME 09/04/23 09/04/23 09/03/23 History azelastine 137 mcg-fluticasone 50 2 spray intranasal DAILY 09/04/23 09/04/23 Unknown History mcg/spray nasal spray (Dymista) furosemide 40 mg tablet 40 mg PO DAILY 09/04/23 09/04/23 08/31/23 History mometasone-formoterol HFA 200 1 puff inhalation BID 09/04/23 09/04/23 08/31/23 History mcg-5 mcg/actuation aerosol inhaler (Dulera) multivitamin 1 tab PO DAILY 09/04/23 09/04/23 09/03/23 History Exam Height,Weight and Vital Signs: Height 5 ft 10 in Weight 96.3 kg Last Vital Signs Temp 96.9 F 09/05/23 14:40 Pulse 61 09/05/23 14:40 Resp 18 09/05/23 14:40 BP 95/58 L 09/05/23 14:40 Pulse Ox 97 09/05/23 14:40 O2 Del Method Room Air 09/05/23 14:40 Pertinent Lab Results Pertinent Lab Results: Laboratory Tests 09/04/23 09/04/23 09/04/23 13:29 13:53 16:02 WBC 7.8 RBC 3.69 L Hgb 12.1 L Hct 35.3 L MCV 95.7 MCH 32.8 MCHC 34.3 RDW 13.5 Plt Count 227 D MPV 11.3 Immature Gran % (Auto) 0.4 Neut % (Auto) 64.3 Lymph % (Auto) 19.1 L [place] % (Auto) 14.0 H Eos % (Auto) 1.4 Baso % (Auto) 0.8 Lymph # (Auto) 1.5 [place] # (Auto) 1.1 Eos # (Auto) 0.1 Baso # (Auto) 0.1 Abs Immat Gran (auto) 0.03 Absolute Neuts (auto) 5.0 Absolute Nucleated RBC 0.000 Nucleated RBC % (auto) 0.0 PT 15.3 H INR 1.3 H Sodium 137 Potassium 4.0 Chloride 102 Carbon Dioxide 24 Anion Gap 15 BUN 29 H Creatinine 2.24 H Estim Creat Clear Calc 31.5 Estimated GFR 28 Random Glucose 95 Lactic Acid 1.5 Calcium 9.8 D Magnesium 2.2 Total Bilirubin 1.5 H AST 29 ALT 21 Alkaline Phosphatase 72 Troponin I High Sens 30.7 B-Natriuretic Peptide 98 Total Protein 7.2 Albumin 3.7 Lipase 17 Urine Color Yellow Urine Appearance Clear Urine pH 8.0 Ur Specific [place] 1.010 Urine Protein Negative Urine Glucose (UA) Negative Urine Ketones Negative Urine Blood Negative Urine Nitrite Negative Ur Leukocyte Esterase Small (1+) H Urine RBC 0-2 Urine WBC 6-10 H Ur Squamous Epith Cells 0-2 Urine Bacteria None Seen Hyaline Casts 0-2 09/05/23 09/05/23 06:24 06:25 WBC 7.4 RBC 3.77 L Hgb 12.2 L Hct 36.7 L MCV 97.3 MCH 32.4 MCHC 33.2 RDW 13.6 Plt Count 196 MPV 11.5 Immature Gran % (Auto) 0.7 H Neut % (Auto) 59.3 Lymph % (Auto) 21.6 [place] % (Auto) 16.3 H Eos % (Auto) 1.6 Baso % (Auto) 0.5 Lymph # (Auto) 1.6 [place] # (Auto) 1.2 Eos # (Auto) 0.1 Baso # (Auto) 0.0 Abs Immat Gran (auto) 0.05 H Absolute Neuts (auto) 4.4 Absolute Nucleated RBC 0.000 Nucleated RBC % (auto) 0.0 PT INR Sodium 139 Potassium 3.9 Chloride 105 Carbon Dioxide 23 Anion Gap 15 BUN 24 H Creatinine 1.86 H Estim Creat Clear Calc 38.1 Estimated GFR 35 Random Glucose 88 Lactic Acid Calcium 9.5 Magnesium 2.2 Total Bilirubin AST ALT Alkaline Phosphatase Troponin I High Sens B-Natriuretic Peptide Total Protein Albumin Lipase Urine Color Urine Appearance Urine pH Ur Specific [place] Urine Protein Urine Glucose (UA) Urine Ketones Urine Blood Urine Nitrite Ur Leukocyte Esterase Urine RBC Urine WBC Ur Squamous Epith Cells Urine Bacteria Hyaline Casts Airway Mallampati Class: II TM Dist: >3cm Neck ROM: Full Heart: RRR Lungs: CTA Assessment and Plan Assessment Anesthesia Assessment: Anesthesia Plan Discussed Final Anesthetic Review Family History of Problems with Anesthesia: No History of Problems with Anesthesia: No NPO: Yes ASA Class: III Final Preanesthetic Review: Meds/Allgs Chart Reviewed, Consent Obtained/Reviewed and Anes Risks/Benef Reviewed Patient Risk: Intermediate Procedure Risk: Low Anesthetic Plan Anesthetic Plan: GA Disposition: Standard PACU
--- NOTE | 2023-09-05 18:28 | P.CONAN_ITS ---
[facility] Active Problems Active Problems: All Active Problems Abnormal CT scan of lung (Acute) Ureteric stone (Acute) Dehydration (Acute) Abdominal pain (Acute) Pneumonia (Acute) ETELVINA (acute kidney injury) (Acute) Pneumonia (Acute) Aspiration pneumonitis (Acute) ETELVINA (acute kidney injury) (Acute) Cellulitis of face (Acute) Atrial flutter (Acute) Asthma-COPD overlap syndrome (Acute) MARE (obstructive sleep apnea) (Acute) Cardiomyopathy (Acute) SOB (shortness of breath) on exertion (Acute) Chronic restrictive lung disease (Acute) Chronic renal disease (Acute) PVCs (premature ventricular contractions) (Acute) CAD (coronary artery disease) (Acute) Dyspnea (Acute) Chronic allergic rhinitis (Acute) Asthma (Acute) Sarcoidosis (Acute) Past Medical History Medical History Pulmonary nodules Chronic restrictive lung disease Chronic renal disease Nonsustained ventricular tachycardia PVCs (premature ventricular contractions) CAD (coronary artery disease) Dyspnea Chronic allergic rhinitis Asthma Sarcoidosis Family History Family History Other Asthma Family history of problems with anesthesia: No Surgical History Surgical History H/O hernia repair Stented coronary artery History of Problems with Anesthesia: No Social History Social History Household Members: Spouse Housing: House Do you presently have visiting nurse or other home services: No Patient Tobacco Use Status: Current someday Tobacco user Tobacco use type: Cigar Smoked in Last 30 Days: No e-Cigarette/Vaping Use: Never Used Second Hand Smoke Exposure: No Use of substances other than those prescribed or required for medical reasons: No Currently Displaying Signs/Symptoms of Drug Intoxication Withdrawal: No Any prior treatment program specific to substance use: No Have you been hit, kicked, punched, or otherwise hurt by someone within the past year? If so, by whom?: No Do you feel safe in your current relationship?: Yes Is there a partner from a previous relationship who is making you feel unsafe now?: No Are you made to feel afraid or neglected: No Are you DNR?: No Advance Directives: No Advance Directives Information Provided: Yes Do you have a plan to hurt others: No Plan Recently lost weight without trying: Unsure How much weight loss: Unsure Eating poorly because of decreased appetite: Yes Nutrition screen score: 5 Nutrition Risks: Poor intake 0-25% >4 days Poor oral hygiene: No service: Yes Meds Allergies Allergy/AdvReac Type Severity Reaction Status Date / Time gadobenic acid [Multihance] Allergy Severe Rash Verified 09/05/23 14:38 azithromycin Allergy Intermediate HIVES Verified 09/05/23 14:38 [From ZITHROMAX Z-JOYCE] Iodinated Contrast Media Allergy Intermediate HIVES Verified 09/05/23 14:38 [IV CONTRAST] Penicillins Allergy Mild RASH Verified 09/05/23 14:38 Active Medications: Current Medications Acetaminophen (Acetaminophen 325 Mg Tablet) 650 mg PO Q6H PRN PRN Reason: Pain, Mild (Pain Scale 1-3), fever or headache Albuterol Sulfate (Albuterol Sulfate 90 Mcg 8 Gm Inhaler) 2 puff INHALE Q6H PRN PRN Reason: shortness of breath or wheezing Allopurinol (Allopurinol 100 Mg Tablet) 100 mg PO DAILY [facility] Last Admin: 09/05/23 09:11 Dose: 100 mg Apixaban (Apixaban 5 Mg Tablet) 5 mg PO BID [facility] Atorvastatin Calcium (Atorvastatin Calcium 80 Mg Tablet) 80 mg PO BEDTIME [facility] Last Admin: 09/04/23 21:13 Dose: 80 mg Azelastine HCl (Azelastine Hcl Nasal 137 Mcg/[place] 30 Ml) 2 spray NOSTRIL-B DAILY [facility] Last Admin: 09/05/23 09:13 Dose: Not Given Benzonatate (Benzonatate 100 Mg Capsule) 100 mg PO TID PRN PRN Reason: Cough Bisoprolol Fumarate (Bisoprolol Fumarate 5 Mg Tablet) 5 mg PO DAILY [facility] Last Admin: 09/05/23 14:06 Dose: Not Given Brimonidine Tartrate (Brimonidine Tartrate 0.2% Oph 5 Ml Bottle) 1 drop EYE- BOTH BID [facility] Last Admin: 09/05/23 09:15 Dose: Not Given Calcium Carbonate (Calcium Carbonate 750 Mg Tab.Chew) 750 mg PO Q4H PRN PRN Reason: Heartburn Dronedarone (Dronedarone Hcl 400 Mg Tablet) 400 mg PO BID [facility] Last Admin: 09/05/23 09:11 Dose: 400 mg Finasteride (Finasteride 5 Mg Tablet) 5 mg PO DAILY [facility] Last Admin: 09/05/23 09:12 Dose: 5 mg Fluticasone Propionate (Fluticasone Propionate Nasal 16 Gm [place]) 2 spray NOSTRIL-B DAILY [facility] Last Admin: 09/05/23 09:14 Dose: Not Given Ceftriaxone Sodium 1 gm/ (Sodium Chloride) 50 mls @ 100 mls/hr IV Q24H [facility] Last Infusion: 09/05/23 17:02 Dose: Infused Sodium Chloride (Ns) 1,000 mls @ 100 mls/hr IVCONT .Q10H [facility] Last Admin: 09/05/23 10:22 Dose: 100 mls/hr Magnesium Hydroxide (Milk Of Magnesia 30 Ml Oral.Susp) 30 ml PO DAILY PRN PRN Reason: Constipation Melatonin (Melatonin 3 Mg Tablet) 6 mg PO BEDTIME PRN PRN Reason: Insomnia Montelukast Sodium (Montelukast Sodium 10 Mg Tablet) 10 mg PO DAILY@1200 [facility] Last Admin: 09/05/23 11:22 Dose: 10 mg Multivitamins/Vitamin C (Multivitamin Tablet) 1 tab PO DAILY [facility] Last Admin: 09/05/23 09:11 Dose: 1 tab Non-Formulary Medication (Dulera 200/5 Mcg) 1 inhalation INHALE RBID [facility] Pharmacy Consult (Consult Rx Vancomycin Dosing) 1 each MISCELLANE DAILY PRN PRN Reason: Consult order Polyethylene Glycol (Polyethylene Glycol 3350 17 Gm Powd.Pack) 17 gm PO DAILY PRN PRN Reason: Constipation Last Admin: 09/04/23 21:13 Dose: 17 gm Sodium Chloride (0.9 % Sodium Chloride Flush 3 Ml Syringe) 3 ml IVFLUSH QSHIFT [facility] Last Admin: 09/05/23 17:07 Dose: Not Given Tiotropium [place] (Tiotropium [place] 2.5 Mcg 1 Puff/2.5 Mcg Mist.Inhal) 2 puff INHALE RDAILY [facility] Last Admin: 09/05/23 11:14 Dose: Not Given Home Medications ?Medication ?Instructions ?Recorded ?Confirmed ?Last Taken ?Type allopurinol 100 mg tablet 100 mg PO DAILY 04/21/20 09/04/23 08/31/23 History montelukast 10 mg tablet 10 mg PO DAILY@1200 04/21/20 09/04/23 08/31/23 History potassium citrate 10 mEq (1,080 10 meq PO BID 02/07/23 09/04/23 08/31/23 History mg) tablet,extended release finasteride 5 mg tablet 5 mg PO DAILY 06/29/23 09/04/23 08/19/23 History brimonidine 0.1 % eye drops 1 drp ophthalmic (eye) BID 08/21/23 09/04/23 08/20/23 History (Alphagan P) dronedarone 400 mg tablet (Multaq) 400 mg PO BID 08/21/23 09/04/23 08/31/23 History Prevagen 1 cap PO DAILY 09/04/23 09/04/23 Unknown History atorvastatin 80 mg tablet 80 mg PO BEDTIME 09/04/23 09/04/23 09/03/23 History azelastine 137 mcg-fluticasone 50 2 spray intranasal DAILY 09/04/23 09/04/23 Unknown History mcg/spray nasal spray (Dymista) furosemide 40 mg tablet 40 mg PO DAILY 09/04/23 09/04/23 08/31/23 History mometasone-formoterol HFA 200 1 puff inhalation BID 09/04/23 09/04/23 08/31/23 History mcg-5 mcg/actuation aerosol inhaler (Dulera) multivitamin 1 tab PO DAILY 09/04/23 09/04/23 09/03/23 History Exam Height,Weight and Vital Signs: Height 5 ft 10 in Weight 96.3 kg Last Vital Signs Temp 96.9 F 09/05/23 14:40 Pulse 61 09/05/23 14:40 Resp 18 09/05/23 14:40 BP 95/58 L 09/05/23 14:40 Pulse Ox 97 09/05/23 14:40 O2 Del Method Room Air 09/05/23 14:40 Pertinent Lab Results Pertinent Lab Results: Laboratory Tests 09/04/23 09/04/23 09/04/23 13:29 13:53 16:02 WBC 7.8 RBC 3.69 L Hgb 12.1 L Hct 35.3 L MCV 95.7 MCH 32.8 MCHC 34.3 RDW 13.5 Plt Count 227 D MPV 11.3 Immature Gran % (Auto) 0.4 Neut % (Auto) 64.3 Lymph % (Auto) 19.1 L [place] % (Auto) 14.0 H Eos % (Auto) 1.4 Baso % (Auto) 0.8 Lymph # (Auto) 1.5 [place] # (Auto) 1.1 Eos # (Auto) 0.1 Baso # (Auto) 0.1 Abs Immat Gran (auto) 0.03 Absolute Neuts (auto) 5.0 Absolute Nucleated RBC 0.000 Nucleated RBC % (auto) 0.0 PT 15.3 H INR 1.3 H Sodium 137 Potassium 4.0 Chloride 102 Carbon Dioxide 24 Anion Gap 15 BUN 29 H Creatinine 2.24 H Estim Creat Clear Calc 31.5 Estimated GFR 28 Random Glucose 95 Lactic Acid 1.5 Calcium 9.8 D Magnesium 2.2 Total Bilirubin 1.5 H AST 29 ALT 21 Alkaline Phosphatase 72 Troponin I High Sens 30.7 B-Natriuretic Peptide 98 Total Protein 7.2 Albumin 3.7 Lipase 17 Urine Color Yellow Urine Appearance Clear Urine pH 8.0 Ur Specific [place] 1.010 Urine Protein Negative Urine Glucose (UA) Negative Urine Ketones Negative Urine Blood Negative Urine Nitrite Negative Ur Leukocyte Esterase Small (1+) H Urine RBC 0-2 Urine WBC 6-10 H Ur Squamous Epith Cells 0-2 Urine Bacteria None Seen Hyaline Casts 0-2 09/05/23 09/05/23 06:24 06:25 WBC 7.4 RBC 3.77 L Hgb 12.2 L Hct 36.7 L MCV 97.3 MCH 32.4 MCHC 33.2 RDW 13.6 Plt Count 196 MPV 11.5 Immature Gran % (Auto) 0.7 H Neut % (Auto) 59.3 Lymph % (Auto) 21.6 [place] % (Auto) 16.3 H Eos % (Auto) 1.6 Baso % (Auto) 0.5 Lymph # (Auto) 1.6 [place] # (Auto) 1.2 Eos # (Auto) 0.1 Baso # (Auto) 0.0 Abs Immat Gran (auto) 0.05 H Absolute Neuts (auto) 4.4 Absolute Nucleated RBC 0.000 Nucleated RBC % (auto) 0.0 PT INR Sodium 139 Potassium 3.9 Chloride 105 Carbon Dioxide 23 Anion Gap 15 BUN 24 H Creatinine 1.86 H Estim Creat Clear Calc 38.1 Estimated GFR 35 Random Glucose 88 Lactic Acid Calcium 9.5 Magnesium 2.2 Total Bilirubin AST ALT Alkaline Phosphatase Troponin I High Sens B-Natriuretic Peptide Total Protein Albumin Lipase Urine Color Urine Appearance Urine pH Ur Specific [place] Urine Protein Urine Glucose (UA) Urine Ketones Urine Blood Urine Nitrite Ur Leukocyte Esterase Urine RBC Urine WBC Ur Squamous Epith Cells Urine Bacteria Hyaline Casts Airway Heart: RRR Lungs: CTA Assessment and Plan Assessment Anesthesia Assessment: Anesthesia Plan Discussed Final Anesthetic Review Family History of Problems with Anesthesia: No History of Problems with Anesthesia: No NPO: Yes ASA Class: III and Emergency Final Preanesthetic Review: Meds/Allgs Chart Reviewed, Consent Obtained/Reviewed and Anes Risks/Benef Reviewed Patient Risk: Intermediate Procedure Risk: Low Anesthetic Plan Anesthetic Plan: GA Disposition: Standard PACU
--- NOTE | 2023-09-05 18:43 | P.OP_ITS ---
Operative Note Operative Note Date of Service: 09/05/23 Narrative: PreOperative Diagnosis:?? Right ureteral stone right hydronephrosis, ETELVINA Post Operative Diagnosis:?? ?Right ureteral stone right hydronephrosis ETELVINA Procedure: Cystoscopy, right retrograde right stent insertion, size 6 Faroese by 22-32 cm Surgeon:?Dr Kuldip Ibarra Anesthesia:? General Indications for procedure: ETELVINA right hydronephrosis obstructing ureteral stone Procedure: After informed consent was verified the patient was brought to the operating placed on the OR table in supine position.? General Anesthesia was administered per protocol.? The patient was placed in lithotomy position, prepped and draped in the usual sterile fashion.? Safety pause time-out and side of surgery confirmed.? Antibiotics confirmed. The patient is on scheduled ceftriaxone. A 22 Faroese cystoscope was inserted transurethrally, the bulbous urethra was within normal limits. The prostatic urethra was obstructive. The bladder was visualized.? The right ureteral orifice was visualized. The? right ureteric orifice was cannulated? and a retrograde examination was performed, A hydrophilic guidewire was placed up to the level of the renal pelvis under fluoroscopy. A 6 fr by 22-32 cm ureteral stent was passed over the guide wire under fluor oscopic guidance. The guide wire was removed. The bladder was emptied.? The rigid cystoscope was removed. ? The patient tolerated the procedure well and was brought to the recovery room in stable condition. Complications: None Drains: Ureteral stent as dictated above
[2023-09-05] MEDS: Atorvastatin Calcium 80 MG TABLET PO (20:46)
[2023-09-05] MEDS: Brimonidine Tartrate 0.2% Oph 5 ML BOTTLE 1 DROP EYE-BOTH (20:46)
[2023-09-06] VITALS (8 sets, daily range): BP systolic 121–145; BP diastolic 60–84; PULSE 52–65; RESP 16–18; TEMP 36–36.4; O2SAT 94–97
[2023-09-06] MEDS: 0.9 % Sodium Chloride 1,000 ML 100 ML IVCONT (01:45)
[2023-09-06] MEDS: Acetaminophen 325 MG TABLET 650 MG PO (03:55)
[2023-09-06 06:55] LABS: Creatinine Clr Calc Pharmacy 43.4; Estimated Glomerular Filt Rate 41
[2023-09-06] MEDS: Tiotropium Bromide 2.5 mcg 1 PUFF/2.5 MCG MIST.INHAL 2 PUFF INHALE (08:32)
--- NOTE | 2023-09-06 08:42 | P.POSTANES_ITS ---
Post Anesthesia Evaluation Post Anesthesia Evaluation Date of Service: 09/06/23 Vital Signs: Vital Signs Temp Pulse Resp BP Pulse Ox O2 Del Method 09/06/23 08:36 52 18 09/06/23 08:33 96.8 F 52 18 145/71 H 94 Room Air 09/06/23 04:49 96.9 F 61 18 133/60 96 Room Air 09/05/23 23:30 96.8 F 64 18 160/72 H 96 Room Air 09/05/23 22:04 97.6 F 58 1 L 138/78 97 Room Air Anesthesia: General LMA Mental Status: Awake Pain Control: Satisfactory Nausea/Vomiting: None Hydration: Adequate Anesthesia-Related Issues: No Anes. Related Issues Comments: Patient concerned about inability to use bathroom. A little confused/forgetful- repeating same questions and same concerns. I did speak with his nurse to inform primary MD. Patient apparently did have a small bowel movement this morning and will be getting a bladder scan to assess bladder content.
[2023-09-06] MEDS: Finasteride 5 MG TABLET PO (08:54)
[2023-09-06] MEDS: Bisoprolol Fumarate 5 MG TABLET PO (08:54)
[2023-09-06] MEDS: allopurinoL 100 MG TABLET PO (08:54)
[2023-09-06] MEDS: Dronedarone HCl 400 MG TABLET PO ×2 (08:54→20:23)
[2023-09-06] MEDS: Multivitamin TABLET 1 TAB PO (08:54)
[2023-09-06] MEDS: Brimonidine Tartrate 0.2% Oph 5 ML BOTTLE 1 DROP EYE-BOTH ×2 (09:01→20:24)
[2023-09-06] MEDS: Zinc Oxide (Triple Paste) 56.7 GM OINT 1 APPL TOPICAL ×2 (09:02→20:24)
--- NOTE | 2023-09-06 09:50 | P.PNIM_ITS ---
Subjective Subjective Date of Service: 09/06/23 Review of Systems Follow up renal stone s/p cystoscopy feeling better, no nausea or vomiting Physical Exam 2 Vital Signs: Vital Signs: Last Vital Signs Temp 96.8 F 09/06/23 08:33 Pulse 62 09/06/23 08:57 Resp 18 09/06/23 08:36 BP 145/71 H 09/06/23 08:33 Pulse Ox 94 09/06/23 08:33 O2 Del Method Room Air 09/06/23 08:33 BMI result Body Mass Index 30.5 Appearing in no acute distress lung sounds are clear to auscultation heart regular rate rhythm, clear S1, S2 positive bowel sounds, abdomen is soft, nontender neuro patient is alert x3, no focal deficits Objective Data Active Medications Acetaminophen (Acetaminophen 325 Mg Tablet) 650 mg PO Q6H PRN PRN Reason: Pain, Mild (Pain Scale 1-3), fever or headache Last Admin: 09/06/23 03:55 Dose: 650 mg Documented By: DANISHA Albuterol Sulfate (Albuterol Sulfate 90 Mcg 8 Gm Inhaler) 2 puff INHALE Q6H PRN PRN Reason: shortness of breath or wheezing Allopurinol (Allopurinol 100 Mg Tablet) 100 mg PO DAILY [facility] Last Admin: 09/06/23 08:54 Dose: 100 mg Documented By: NYA Atorvastatin Calcium (Atorvastatin Calcium 80 Mg Tablet) 80 mg PO BEDTIME [facility] Last Admin: 09/05/23 20:46 Dose: 80 mg Documented By: JOHNNY Azelastine HCl (Azelastine Hcl Nasal 137 Mcg/[place] 30 Ml) 2 spray NOSTRIL-B DAILY [facility] Last Admin: 09/06/23 08:57 Dose: Not Given Documented By: NYA Non-Admin Reason: Patient Refused Benzonatate (Benzonatate 100 Mg Capsule) 100 mg PO TID PRN PRN Reason: Cough Bisoprolol Fumarate (Bisoprolol Fumarate 5 Mg Tablet) 5 mg PO DAILY [facility] Last Admin: 09/06/23 08:54 Dose: 5 mg Documented By: YNA Brimonidine Tartrate (Brimonidine Tartrate 0.2% Oph 5 Ml Bottle) 1 drop EYE- BOTH BID [facility] Last Admin: 09/06/23 09:01 Dose: 1 drop Documented By: NYA Calcium Carbonate (Calcium Carbonate 750 Mg Tab.Chew) 750 mg PO Q4H PRN PRN Reason: Heartburn Dronedarone (Dronedarone Hcl 400 Mg Tablet) 400 mg PO BID [facility] Last Admin: 09/06/23 08:54 Dose: 400 mg Documented By: NYA Finasteride (Finasteride 5 Mg Tablet) 5 mg PO DAILY [facility] Last Admin: 09/06/23 08:54 Dose: 5 mg Documented By: NYA Fluticasone Propionate (Fluticasone Propionate Nasal 16 Gm [place]) 2 spray NOSTRIL-B DAILY [facility] Last Admin: 09/06/23 08:57 Dose: Not Given Documented By: NYA Non-Admin Reason: Patient Refused Ceftriaxone Sodium 1 gm/ (Sodium Chloride) 50 mls @ 100 mls/hr IV Q24H [facility] Last Infusion: 09/05/23 17:02 Dose: Infused Documented By: BOY Sodium Chloride (Ns) 1,000 mls @ 100 mls/hr IVCONT .Q10H [facility] Last Infusion: 09/06/23 01:45 Dose: Infused Documented By: DANISHA Magnesium Hydroxide (Milk Of Magnesia 30 Ml Oral.Susp) 30 ml PO DAILY PRN PRN Reason: Constipation Melatonin (Melatonin 3 Mg Tablet) 6 mg PO BEDTIME PRN PRN Reason: Insomnia Montelukast Sodium (Montelukast Sodium 10 Mg Tablet) 10 mg PO DAILY@1200 [facility] Last Admin: 09/05/23 11:22 Dose: 10 mg Documented By: FLORY Multivitamins/Vitamin C (Multivitamin Tablet) 1 tab PO DAILY [facility] Last Admin: 09/06/23 08:54 Dose: 1 tab Documented By: NYA Non-Formulary Medication (Dulera 200/5 Mcg) 1 inhalation INHALE RBID [facility] Last Admin: 09/06/23 08:32 Dose: 1 inhalation Documented By: KEIRA Polyethylene Glycol (Polyethylene Glycol 3350 17 Gm Powd.Pack) 17 gm PO DAILY PRN PRN Reason: Constipation Last Admin: 09/04/23 21:13 Dose: 17 gm Documented By: JOHNNY Sodium Chloride (0.9 % Sodium Chloride Flush 3 Ml Syringe) 3 ml IVFLUSH QSHIFT [facility] Last Admin: 09/06/23 06:59 Dose: Not Given Documented By: NYA Non-Admin Reason: IV Running Tiotropium [place] (Tiotropium [place] 2.5 Mcg 1 Puff/2.5 Mcg Mist.Inhal) 2 puff INHALE RDAILY [facility] Last Admin: 09/06/23 08:32 Dose: 2 puff Documented By: KEIRA Zinc Oxide (Zinc Oxide (Triple Paste) 56.7 Gm Oint) 1 appl TOPICAL TID [facility]; Protocol Last Admin: 09/06/23 09:02 Dose: 1 appl Documented By: NYA Labs 09/05/23 06:24 09/06/23 05:31 Labs: Laboratory Results - last 24 hr 09/06/23 05:31 Estim Creat Clear Calc 43.4 Estimated GFR 41 Microbiology Microbiology Results: Microbiology 09/04/23 16:02 Blood Culture - Preliminary Blood - Venous No growth after 24 hours. 09/04/23 15:40 Blood Culture - Preliminary Blood - Venous No growth after 24 hours. 09/04/23 Unknown Urine Culture - Final Urine clean catch - Clean Catch Midstream No growth. Assessment and Plan (1) Acute hypoxic respiratory failure: Status: Resolved Plan 78-year-old man admitted with healthcare associated pneumonia hydronephrosis and ETELVINA Hydronephrosis. Resolved continues with poor appetite Abdominal CT shows mild hydronephrosis of right kidney due to obstructing stone in the proximal right ureter, 1.3 cm stone in the right renal pelvis s/p cystoscopy and right stent placement urine clearer and urinating plan for o/p follow up for stent removal Constipation Miralax Pneumonia. CT scan confirmed no new pna Seems less likely as patient is not hypoxic or sob Chest CT shows stable bilateral airspace disease with multiple calcified and noncalcified pulmonary nodules stopped vancomycin and zosyn ETELVINA. Creat trending down Multifactorial secondary to recent Lasix, hypovolemia, hydronephrosis and poor appetite s/p Gentle IV fluids Nephrology consultation>obstructive uropathy and volume depletion. continue IV hydration lasix stopped History of atrial flutter, paroxysmal Continue BB and Multaq hold Eliquis for urological procedure BPH Continue finasteride Mild intermittent asthma/COPD overlap No exacerbation Continue home inhalers Hyperlipidemia Continue statin DVT prophylaxis with eliquis, hold for urological procedure attending Dr. Manuel Full code continue hospital stay for treatment of healthcare associated pneumonia requiring IV antibiotics, ETELVINA requiring IV fluids and specialty consultation. Due to patient's age he is at high risk for decompensation. Quality Stroke Does the patient have a stroke diagnosis?: No VTE Prior VTE?: No VTE Risk Level:: Medical - moderate - high VTE Device Contraindication: Treatment Not Indicated VTE Drug Contraindication: N/A - Med Ordered
[2023-09-06] MEDS: polyethylene glycoL 3350 17 GM POWD.PACK PO (10:26)
[2023-09-06] MEDS: Montelukast Sodium 10 MG TABLET PO (11:27)
[2023-09-06] MEDS: 0.9 % Sodium Chloride 1,000 ML 80 ML IVCONT (12:00)
--- NOTE | 2023-09-06 13:04 | MHC.CM.PN ---
EMR REVIEWED AND PER MD ROUNDS, PT IS NOT MEDICALLY CLEARED FOR DC (S/P STENT PLACEMENT, IV ABT) CM WILL CONTINUE TO FOLLOW FOR ANY CHANGE TO DC PLAN/NEEDS.
--- NOTE | 2023-09-06 15:28 | P.PNNP_ITS ---
Subjective Subjective Date of Service: 09/06/23 Interval history: s/p cysto and r ureteral stent Physical Exam 2 Vital Signs: Vital Signs: Last Vital Signs Temp 97.1 F 09/06/23 15:17 Pulse 64 09/06/23 15:17 Resp 16 09/06/23 15:17 BP 134/84 09/06/23 15:17 Pulse Ox 95 09/06/23 15:17 O2 Del Method Room Air 09/06/23 15:17 BMI result Body Mass Index 30.5 Awake. Comfortable. Neck is supple. Mucosa moist. Lungs bilateral scattered rhonchi. Heart S1-S2 heard no gallop. Abdomen soft. Extremities no edema. No involuntary movements. No myoclonus. Objective Data Labs 09/05/23 06:24 09/07/23 07:34 Labs: Laboratory Results - last 24 hr 09/06/23 05:31 Creatinine 1.63 H Estim Creat Clear Calc 43.4 Estimated GFR 41 Microbiology Microbiology Results: Microbiology 09/04/23 16:02 Blood - Venous Blood Culture - Preliminary No growth after 24 hours. 09/04/23 15:40 Blood - Venous Blood Culture - Preliminary No growth after 24 hours. 09/04/23 Unknown Urine clean catch - Clean Catch Midstream Urine Culture - Final No growth. Procedures Date of Service Date of Service: 09/07/23 Assessment & Plan Assessment and plan (1) ETELVINA (acute kidney injury): Status: Acute Plan ETELVINA due to combination of obstructive uropathy and volume depletion. With IV hydration renal function is improving. s/p Cysto and Rt ureteral stent For now would recommend IV hydration keep intake more than output and avoid hypotension. Renal function should returned to baseline She will follow along with the team. Thank you Time Spent With Patient Time: Total time managing care of this patient today ____ minutes. Progress Note: Quality Stroke Does the patient have a stroke diagnosis?: No
--- NOTE | 2023-09-06 15:35 | HO.WOUND ---
Wound Consult: Initial 78yr old? admitted to [facility] on 09/04/23 - See progress notes and H&P for detailed history.? Wound consult placed for Left buttock injury.? Patient agreeable to assessment and photo documentation.? at bedside reports concerns over patient nutritional status - nutrition to be reconsulted. They report the left buttock injury was the result of sliding on the bed yesterday he felt he pinched his skin on something. Left buttock Etiology: ?Abrasion Measurements: 1cm x 3cm x 0.1cm Wound Bed: clean partial thickness tissue loss Drainage / Odor: None noted Edges: ? linear well defined [place] wound: ?pink blanchable tissue - pink red tender MASD noted to perianal tissue - No Induration, Fluctuance or Warmth noted Pain: tenderness and burning to perianal area Goals of Treatment: ? Foam dressing to left buttock to allow for moist wound healing and Barrier cream to perianal tissue to protect from moisture and friciton Recommendations: 1. Turn and Reposition every 2 hours and as needed for patient comfort.? Use pillows or wedges to support off loading positions. 2. Off Load all bony prominences with use of pillows and heel boots if needed.? Apply Preventative foams where needed. ? 3. Monitor for incontinence and moisture control, use barrier creams when needed for prevention and treatment. 4. Provide adequate and supplemental nutrition.? 5. Order or Continue low air loss mattress. 6. When applicable maintain blood glucose levels per Providers order. 7. Left buttock - Cleanse with routine cleansing. Cover with foam dressing, change every 3 days and PRN. 8. Buttock and perianal - Cleanse with PH balanced wipes. apply barrier cream to perianal area and reddened buttock to rpotect from moisture and friction. Apply twice daily and PRN after episodes of incontinence. Re-consult wound care Nurse for wound deterioration or wound changes.
[2023-09-06] MEDS: cefTRIAXone sodium 1 GM in 0.9 % Sodium Chloride 50 ML IV (15:45)
--- NOTE | 2023-09-06 15:57 | MHC.CLN ---
NUTRITION ADDED ENSURE TID PER FAMILY DUE TO FAIR INTAKE. SUPPLEMENT PROVIDES 1050 KCALS, 60 G PROTEIN.
[2023-09-06] MEDS: Atorvastatin Calcium 80 MG TABLET PO (20:24)
[2023-09-06] MEDS: 0.9 % Sodium Chloride Flush 3 ML SYRINGE IVFLUSH (20:24)
[2023-09-06] MEDS: Melatonin 3 MG TABLET 6 MG PO (20:26)
[2023-09-07] MEDS: 0.9 % Sodium Chloride 1,000 ML 80 ML IVCONT (00:42)
[2023-09-07 03:00] VITALS: BP 139/63; PULSE 53; RESP 18; TEMP 36; O2SAT 96
--- NOTE | 2023-09-07 04:10 | PC.NURSE ---
Pt AOx3, able to make needs known. Pt can be impulsive and get OOB without using call ellis. He's urinating frequently; having difficulty starting a stream; urine is pink to yellow. Pt educated and re-educated on why he needs to use the call ellis and wait for staff prior to getting OOB. Pt stated he understood and has used the call ellis more often as the shift has gone on. Since he is experiencing frequency and urgency, he does not wait long for stafff. Camera in room; call ellis within reach; bed alarm is on.
[2023-09-07 07:00] VITALS: BP 117/61; PULSE 60; RESP 16; TEMP 36.4; O2SAT 95
[2023-09-07] MEDS: Tiotropium Bromide 2.5 mcg 1 PUFF/2.5 MCG MIST.INHAL 2 PUFF INHALE (07:59)
[2023-09-07 08:03] VITALS: PULSE 53; RESP 18; O2SAT 95
[2023-09-07 08:04] LABS: Anion Gap 13 (12-20); Blood Urea Nitrogen 13 mg/dL (9-16); Calcium 8.7 mg/dL (8.4-10.2); Carbon Dioxide 16 mmol/L (22-29); Chloride 113 mmol/L (96-108); Creatinine Clr Calc Pharmacy 58.5; Estimated Glomerular Filt Rate 58; Glucose Random 98 mg/dL (60-115); Potassium 3.8 mmol/L (3.3-5.1); Sodium 138 mmol/L (135-145)
--- NOTE | 2023-09-07 09:25 | PM.DS ---
DS: Providers Provider Date of Service: 09/07/23 Date of admission: 09/04/23 16:02 Primary care physician: Moris Yu MD Consults: 09/04/23 16:04 Consult to Nephrology Routine Consulting Provider: [facility] [place] [facility] Reason for consultation: ETELVINA Consult to Pulmonology Routine Consulting Provider: [facility] [place] [facility] Reason for consultation: repeat pna 09/04/23 16:29 Consult to Urology Routine Consulting Provider: [facility] [place] [facility] Reason for consultation: Hydronephrosis 09/05/23 20:43 Consult to Wound Care Routine Reason for consultation: skin laceration, buttocks 09/06/23 09:10 Consult to Wound Care Routine Reason for consultation: skin tear to L buttocks DS: Summary Hospital Course Hospital Course: History and physical as per admitting provider. 70-year-old man presented to the ER with lethargy and poor appetite over the last several days. Patient was discharged from [facility] on 08/25/2023. Attempt was treated for sepsis secondary to facial cellulitis and acute hypoxic respiratory failure secondary to pneumonia. Patient reports he went home he felt better but then he started to feel worse and have episodes of wheezing. He was seen by his primary care provider who started him on Lasix for edema as well. Continuing on his oral antibiotics but began to feel nauseous and had very poor appetite so his stopped them short of the 10 days. Patient denies chest pain, shortness of breath, vomiting, diarrhea. Reported nausea with some loose stools and very poor appetite. In the ER, chest CT showed abdominal CT showed mild hydronephrosis of the right kidney due to an obstructing stone in the proximal right ureter, 1.3 cm stone in the right renal pelvis and stable airspace disease. No fever leukocytosis noted, creatinine to be elevated at 2.24. Vital signs stable. Patient was given ceftriaxone, vancomycin and morphine in the ER along with 500 mL of IV fluid. He will be admitted for further management and treatment of healthcare associated pneumonia and hydronephrosis. 78-year-old man treated for nausea and vomiting. Initially it was thought symptoms were related to pneumonia but CT scan confirmed no new pneumonia and antibiotics were stopped. He had an abdominal CT scan which showed hydronephrosis with right kidney obstructing stone measuring at 1.3 cm. Patient was seen and evaluated by Urology and is status post cystoscopy, right retrograde right stent insertion on 09/05/2023. Plan will be for patient to follow-up with Urology for stent removal. Patient no longer has any nausea or abdominal pain. He is passing his bowels. ETELVINA has resolved and patient back at his baseline. He was seen evaluated by Physical therapy who recommended home. Plan is to discharge patient and he is in agreement with this. History of atrial flutter, paroxysmal. Continue beta-miguel angel, Multaq and Eliquis BPH. Continue finasteride Mild intermittent asthma/COPD. No exacerbation. Continue home inhalers Hyperlipidemia. Continue statin Time Attestation Discharge Coordination Time (in mins): 32 Quality: Safe Use of Opioids Does Pt have an Active Cancer Diagnosis on the Problem List?: No Quality: Stroke Does the patient have a stroke diagnosis?: No Physical Exam Vital Signs: Vital Signs: Last Vital Signs Temp 97.6 F 09/07/23 07:00 Pulse 53 09/07/23 08:03 Resp 18 09/07/23 08:03 BP 117/61 09/07/23 07:00 Pulse Ox 95 09/07/23 07:00 O2 Del Method Room Air 09/07/23 07:00 BMI result Body Mass Index 30.5 Appearing in no acute distress head is normocephalic atraumatic eyes pupils are PERRLA sclera is anicteric mouth throat mucous membranes are intact and moist neck is supple no lymphadenopathy, no JVD noted lung sounds are clear to auscultation heart regular rate rhythm, clear S1, S2 positive bowel sounds, abdomen is soft, nontender neuro patient is alert x3, no focal deficits DS: Data Data Completed and Pending Labs on day of discharge: Laboratory Results - last 24 hr 09/07/23 09/07/23 07:34 07:36 Hold Purple Top SEE NOTE Sodium 138 Potassium 3.8 Chloride 113 H Carbon Dioxide 16 L Anion Gap 13 BUN 13 Creatinine 1.21 Estim Creat Clear Calc 58.5 Estimated GFR 58 Random Glucose 98 Calcium 8.7 D Preliminary micro results at discharge 09/04/23 16:02 Blood Culture - Preliminary Blood - Venous No growth after 48 hours. 09/04/23 15:40 Blood Culture - Preliminary Blood - Venous No growth after 48 hours. Discharge Plan Discharge Anticipated Discharge Date/Time: 09/07/23 09:29 Patient Disposition: Home, Self-Care Discharge Diagnosis: Hydronephrosis Ureteral stent placement Constipation ETELVINA Referrals: Kuldip Ibarra MD [Physician] - 1 Week Moris Yu MD [Primary Care Provider] - 1 Week Discharge Medications: New Eliquis 5 mg tablet 5 mg PO BID Qty: 60 0RF Continued losartan 25 mg tablet 25 mg PO BEDTIME Qty: 90 3RF Spiriva Respimat 2.5 mcg/actuation mist 2 inh inhalation DAILY Qty: 12 3RF albuterol sulfate 90 mcg/actuation HFA aerosol inhaler 2 inh inhalation Q6H PRN (Reason: shortness of breath or wheezing) 30 Days Qty: 18 12RF bisoprolol fumarate 5 mg tablet 5 mg PO DAILY Qty: 90 3RF multivitamin Tablet 1 tab PO DAILY Dulera 200-5 mcg/actuation Hfa Aerosol Inhaler 1 puff INHALATION BID atorvastatin 80 mg tablet 80 mg PO BEDTIME azelastine-fluticasone [Dymista] 137-50 mcg/spray Speed,Non-Aerosol 2 spray INTRANASAL DAILY Rx Instructions: administer into each nostril Prevagen 1 cap PO DAILY brimonidine [Alphagan P] 0.1 % drops 1 drp ophthalmic (eye) BID Multaq 400 mg tablet 400 mg PO BID allopurinol 100 mg tablet 100 mg PO DAILY montelukast 10 mg tablet 10 mg PO DAILY@1200 potassium citrate 10 mEq (1,080 mg) tablet extended release 10 meq PO BID finasteride 5 mg tablet 5 mg PO DAILY Discontinued Eliquis 5 mg tablet 5 mg PO BID 90 Days Qty: 180 3RF Rx Instructions: on hold for 2 weeks since 08/27/23 furosemide 40 mg tablet 40 mg PO DAILY Rx Instructions: ordered on 08/29/23 x 10 days Discharge Orders: Discharge Order (Routine); Ordered 09/07/23 Ordered By: Pat Patricia Diet: Advance to usual diet Activity on Discharge: As tolerated Stand Alone Forms: Patient Portal Discharge page Print Language: Kyrgyz Care Plan Goals: Follow-up with Urology for management of ureteral stent Monitor for any signs of urinary retention, increased bloody urine, fever, chills, abdominal pain Health Concerns: Hydronephrosis Ureteral stent placement Constipation ETELVINA Plan of Treatment: Follow-up with primary care provider as needed Take all medications as prescribed Assessment: See discharge summary Patient Instructions: Constipation (DC), Acute Kidney Injury (DC), Hydronephrosis (DC), Urethral Stent Placement (DC)
[2023-09-07] MEDS: Fluticasone Propionate Nasal 16 GM SPRAY 2 SPRAY NOSTRIL-B (09:27)
[2023-09-07] MEDS: Multivitamin TABLET 1 TAB PO (09:27)
[2023-09-07] MEDS: polyethylene glycoL 3350 17 GM POWD.PACK PO ×2 (09:27)
[2023-09-07] MEDS: Azelastine HCl Nasal 137 MCG/Spray 30 ML 2 SPRAY NOSTRIL-B (09:27)
[2023-09-07] MEDS: Dronedarone HCl 400 MG TABLET PO (09:28)
[2023-09-07] MEDS: allopurinoL 100 MG TABLET PO (09:28)
[2023-09-07] MEDS: Bisoprolol Fumarate 5 MG TABLET PO (09:28)
[2023-09-07] MEDS: Finasteride 5 MG TABLET PO (09:28)
[2023-09-07] MEDS: 0.9 % Sodium Chloride Flush 3 ML SYRINGE IVFLUSH (09:29)
[2023-09-07] MEDS: Zinc Oxide (Triple Paste) 56.7 GM OINT 1 APPL TOPICAL (09:30)
[2023-09-07] MEDS: Brimonidine Tartrate 0.2% Oph 5 ML BOTTLE 1 DROP EYE-BOTH (09:40)
[2023-09-07] MEDS: Montelukast Sodium 10 MG TABLET PO (11:32)
--- NOTE | 2023-09-07 12:58 | P.PNNP_ITS ---
Subjective Subjective Date of Service: 09/07/23 Interval history: s/p cysto and r ureteral stent Physical Exam 2 Vital Signs: Vital Signs: Last Vital Signs Temp 97.6 F 09/07/23 07:00 Pulse 53 09/07/23 08:03 Resp 18 09/07/23 08:03 BP 117/61 09/07/23 07:00 Pulse Ox 95 09/07/23 07:00 O2 Del Method Room Air 09/07/23 07:00 BMI result Body Mass Index 30.5 Awake. Comfortable. Neck is supple. Mucosa moist. Lungs bilateral scattered rhonchi. Heart S1-S2 heard no gallop. Abdomen soft. Extremities no edema. No involuntary movements. No myoclonus. Objective Data Labs 09/05/23 06:24 09/07/23 07:34 Labs: Laboratory Results - last 24 hr 09/07/23 09/07/23 07:34 07:36 Hold Purple Top SEE NOTE Sodium 138 Potassium 3.8 Chloride 113 H Carbon Dioxide 16 L Anion Gap 13 BUN 13 Creatinine 1.21 Estim Creat Clear Calc 58.5 Estimated GFR 58 Random Glucose 98 Calcium 8.7 D Microbiology Microbiology Results: Microbiology 09/04/23 16:02 Blood - Venous Blood Culture - Preliminary No growth after 48 hours. 09/04/23 15:40 Blood - Venous Blood Culture - Preliminary No growth after 48 hours. 09/04/23 Unknown Urine clean catch - Clean Catch Midstream Urine Culture - Final No growth. Procedures Date of Service Date of Service: 09/07/23 Assessment & Plan Assessment and plan (1) ETELVINA (acute kidney injury): Status: Acute Plan ETELVINA due to combination of obstructive uropathy and volume depletion. With IV hydration renal function is improving. s/p Cysto and Rt ureteral stent Can discontinue IV fluids keep intake more than output and avoid hypotension. Renal function continues to improve and should return to baseline She will follow along with the team. Thank you Time Spent With Patient Time: Total time managing care of this patient today ____ minutes. Progress Note: Quality Stroke Does the patient have a stroke diagnosis?: No
--- NOTE | 2023-09-07 13:08 | MHC.CM.PN ---
PT WILL DC HOME TODAY WITH NO SERVICES VIA FAMILY TRANSPORT
== END 2023-09-07 13:45 | disposition home or self-care (01) | DRG 659 ==
LOC: HO.ED 14:57 → HO.EDOVER 16:08 → HO.S3 19:26
PROVIDERS: Physician Assistant; Urology; Admitting Provider Nurse Practitioner Acute Care; Emergency Provider Emergency Medicine; PCP Internal Medicine; Visit Provider Nurse Practitioner Acute Care
PROC: 0T768DZ Dilation of Right Ureter with Intraluminal Device, Via Natural or Artificial Opening Endoscopic (ICD-10-PCS; principal; 2023-09-05 15:50)
DX: N13.2 Hydronephrosis with renal and ureteral calculous obstruction (principal); J96.01 Acute respiratory failure with hypoxia; I48.92 Unspecified atrial flutter; N17.9 Acute kidney failure, unspecified; I25.10 Atherosclerotic heart disease of native coronary artery without angina pectoris; J44.9 Chronic obstructive pulmonary disease, unspecified; K59.00 Constipation, unspecified; F17.210 Nicotine dependence, cigarettes, uncomplicated; T50.1X5A Adverse effect of loop [high-ceiling] diuretics, initial encounter; Z71.6 Tobacco abuse counseling; J45.20 Mild intermittent asthma, uncomplicated; E86.0 Dehydration; D86.0 Sarcoidosis of lung; E86.1 Hypovolemia; N40.0 Benign prostatic hyperplasia without lower urinary tract symptoms; E78.5 Hyperlipidemia, unspecified; Z95.5 Presence of coronary angioplasty implant and graft; Z79.899 Other long term (current) drug therapy
CPT/HCPCS: 36415; 71045; 71250; 74176; 80048; 80053; 81001; 81003; 82565; 83605; 83690; 83735; 83880; 84484; 85025; 85610; 87040; 87086; 93005; 97162; 99285; C1769; C2617; J0696; J2704; J3370; Q9967

== ENCOUNTER → 2023-09-04 13:30 | Outpatient (BNV) | payer MEDICARE, OTHER, SELFPAY | PROVIDERS: Admitting Provider Nurse Practitioner Acute Care; Emergency Provider Emergency Medicine; PCP Internal Medicine; Visit Provider Internal Medicine Cardiovascular Disease | DX: R94.31 Abnormal electrocardiogram [ECG] [EKG] (principal); R53.1 Weakness | CPT/HCPCS: 93010 ==

== ENCOUNTER → 2023-09-04 16:02 | Outpatient (BNV) | payer MEDICARE, OTHER, SELFPAY | PROVIDERS: Admitting Provider Nurse Practitioner Acute Care; Emergency Provider Emergency Medicine; PCP Internal Medicine; Visit Provider Internal Medicine Hypertension Specialist | DX: N17.9 Acute kidney failure, unspecified (principal); Z96.0 Presence of urogenital implants | CPT/HCPCS: 99223; 99232 ==

== ENCOUNTER → 2023-09-04 16:02 | Outpatient (BNV) | payer MEDICARE, OTHER, SELFPAY | PROVIDERS: Admitting Provider Nurse Practitioner Acute Care; Emergency Provider Emergency Medicine; PCP Internal Medicine; Visit Provider Nurse Practitioner Acute Care | DX: N13.30 Unspecified hydronephrosis (principal); N17.9 Acute kidney failure, unspecified | CPT/HCPCS: 99223; 99232; 99239 ==

== ENCOUNTER → 2023-09-04 16:02 | Outpatient (BNV) | payer MEDICARE, OTHER, SELFPAY | PROVIDERS: Admitting Provider Nurse Practitioner Acute Care; Emergency Provider Emergency Medicine; PCP Internal Medicine; Visit Provider Urology | DX: N17.9 Acute kidney failure, unspecified (principal); N20.1 Calculus of ureter | CPT/HCPCS: 52332; 74420; 99223 ==

== ENCOUNTER → 2023-09-04 16:02 | Outpatient (BNV) | payer MEDICARE, OTHER, SELFPAY | PROVIDERS: Admitting Provider Nurse Practitioner Acute Care; Emergency Provider Emergency Medicine; PCP Internal Medicine; Visit Provider Internal Medicine Pulmonary Disease | DX: D86.9 Sarcoidosis, unspecified (principal); J18.9 Pneumonia, unspecified organism; R91.8 Other nonspecific abnormal finding of lung field | CPT/HCPCS: 99222 ==

== ENCOUNTER 2023-09-14 19:25 | Inpatient (IN) | payer MEDICARE, OTHER, SELFPAY ==
--- NOTE | ~2023-09-14 | XR_ITS ---
EXAMINATION: XR ABDOMEN KUB CLINICAL INDICATION: Evaluate stool burden COMPARISON: CT abdomen pelvis 09/14/2023 TECHNIQUE: AP view of the abdomen. FINDINGS: Minimal stool is present in the colon. Double-J right ureteral stent is present. There is marked degenerative changes in the spine with biconvex scoliosis. A right hip prosthesis is present. Bilateral nephrolithiasis again seen, better characterized on the recent CT scan. XR/XR KUB IMPRESSION: Minimal stool burden. Other incidental findings as described above.
--- NOTE | ~2023-09-14 | CT_ITS ---
EXAMINATION: CT ABDOMEN AND PELVIS WITHOUT CONTRAST CLINICAL INFORMATION: History of kidney stones status post stent COMPARISON: CT abdomen pelvis 09/04/2023 TECHNIQUE: Multidetector volumetric imaging was performed from the superior aspect of the liver through the pubic symphysis. Sagittal and coronal reformatted images were obtained on the technologist's workstation. This CT examination was performed using dose optimization techniques as appropriate, variously including the following: *Automated exposure control *Adjustment of mA and/or kV according to patient size (this includes techniques or standardized protocols for targeted exams where dose is matched to indication/reason for exam; i.e. extremities or head) *Use of iterative reconstruction technique DLP: 741 mGy-cm FINDINGS: LUNG BASES: Calcified granulomas are present along with traction bronchiectasis and scarring. LIVER, GALLBLADDER, AND BILIARY TREE: The liver is normal in size, shape, and attenuation. No focal hepatic lesion or biliary ductal dilatation is present. The gallbladder is unremarkable with no evidence of radiopaque gallstones, gallbladder wall thickening, or obvious pericholecystic inflammatory changes. PANCREAS: Unremarkable. SPLEEN: Unremarkable. ADRENAL GLANDS: Unremarkable. KIDNEYS AND URETERS: On the right, a double-J internally stent is present. Multiple small intrarenal calculi are seen. There is one larger calculus at the UP junction measuring 0.8 cm. There is a 5 mm calculus adjacent to the stent in the mid ureter. Multiple nonobstructing calculi present in the left kidney. A benign left mid renal 1.0 cm Bosniak class I renal cyst is noted which requires no additional imaging or follow up. No solid renal masses are seen. BLADDER: Logan catheter is present in the bladder GASTROINTESTINAL TRACT: The small and large bowel are unremarkable. The appendix is unremarkable. ABDOMINAL WALL: Tiny periumbilical hernia contains only fat. There is a tiny left inguinal hernia seen containing only fat. LYMPH NODES: No retroperitoneal lymphadenopathy. VASCULAR: Unremarkable. PELVIC VISCERA: The prostate and seminal vesicles are unremarkable. OSSEOUS STRUCTURES: There is a right total hip prosthesis present. Marked degenerative changes are present throughout the spine with mild scoliosis convex to right. CT/CT abdomen pelvis wo IV con IMPRESSION: 1. Bilateral nephrolithiasis with right-sided double-J stent in place. There is a 5 mm calculus adjacent to the stent in the mid ureter. 2. Other incidental findings as described above. Fleischner guidelines were followed.
[2023-09-14 19:27] VITALS: BP 120/80; PULSE 60; O2SAT 97
[2023-09-14 19:37] VITALS: BMI 39.5
[2023-09-14 20:14] LABS: Appearance Urine Cloudy; Color Urine Dark Yellow; Glucose Urine UA Negative (Negative); Leukocyte Esterase Urine Large (3+) (Negative); Nitrite Urine Positive (Negative); UMIC TRIGGER UACC YES; Urine Blood Moderate (2+) (Negative); Urine Ketones Negative (Negative); Urine Protein 30 (1+) mg/dL (Neg-Trace)
[2023-09-14 20:25] LABS: Bacteria Urine None Seen (None Seen); Hyaline Casts Urine 0-2 /LPF (0-2); RBC Urine >20 /HPF (0-2); Squamous Epithelial Cell Urine 0-2 /HPF (0-2); UACC Culture Trigger YES; WBC Urine >50 /HPF (0-5)
--- NOTE | 2023-09-14 20:35 | ED_ITS ---
HPI - Male Genitourinary General Chief complaint: Urogenital-Male Stated complaint: unable to urinate Time Seen by Provider: 09/14/23 19:52 History of Present Illness HPI Narrative: Patient is a 78-year-old male presents today with having lower abdominal pain, difficulty with urination. History of having a stent placed on September 04 for a kidney stone. Patient been having difficulty with urination. Feeling very weak tired. Having diarrhea, generalized malaise. No fever no chills. No coughing or congestion or upper respiratory symptoms. Patient been on antibiotics in the past week. Now is also having diarrhea. The diarrhea does not have any distinct of smell. There is no blood. Came in for further evaluation of abdominal cramping. Taking Pyridium. Has a history of large prostate in the past. Currently not on narcotics Related Data Home Medications ?Medication ?Instructions ?Recorded ?Confirmed allopurinol 100 mg tablet 100 mg PO DAILY 04/21/20 09/04/23 montelukast 10 mg tablet 10 mg PO DAILY@1200 04/21/20 09/04/23 potassium citrate 10 mEq (1,080 10 meq PO BID 02/07/23 09/04/23 mg) tablet,extended release finasteride 5 mg tablet 5 mg PO DAILY 06/29/23 09/04/23 brimonidine 0.1 % eye drops 1 drp ophthalmic (eye) BID 08/21/23 09/04/23 (Alphagan P) dronedarone 400 mg tablet (Multaq) 400 mg PO BID 08/21/23 09/04/23 Prevagen 1 cap PO DAILY 09/04/23 09/04/23 atorvastatin 80 mg tablet 80 mg PO BEDTIME 09/04/23 09/04/23 azelastine 137 mcg-fluticasone 50 2 spray intranasal DAILY 09/04/23 09/04/23 mcg/spray nasal spray (Dymista) mometasone-formoterol HFA 200 1 puff inhalation BID 09/04/23 09/04/23 mcg-5 mcg/actuation aerosol inhaler (Dulera) multivitamin 1 tab PO DAILY 09/04/23 09/04/23 Previous Rx's ?Medication ?Instructions ?Recorded losartan 25 mg tablet 25 mg PO BEDTIME #90 tabs 11/16/22 tiotropium bromide 2.5 2 inh inhalation DAILY #12 grams 11/16/22 mcg/actuation mist for inhalation (Spiriva Respimat) albuterol sulfate 90 mcg/actuation 2 inh inhalation Q6H PRN shortness 12/19/22 aerosol inhaler of breath or wheezing 30 days #18 grams bisoprolol fumarate 5 mg tablet 5 mg PO DAILY #90 tabs 05/25/23 apixaban 5 mg tablet (Eliquis) 5 mg PO BID #60 tabs 09/07/23 Allergies Allergy/AdvReac Type Severity Reaction Status Date / Time gadobenic acid [Multihance] Allergy Severe Rash Verified 09/14/23 19:43 azithromycin Allergy Intermediate HIVES Verified 09/14/23 19:43 [From ZITHROMAX Z-JOYCE] Iodinated Contrast Media Allergy Intermediate HIVES Verified 09/14/23 19:43 [IV CONTRAST] Penicillins Allergy Mild RASH Verified 09/14/23 19:43 Review of Systems 2 Review of Systems: Positive generalized malaise weakness No fever no chills no cough no congestion or upper respiratory symptoms PMFSH Past Medical History Attestation statement: The following information was validated with the patient. Medical History Pulmonary nodules Chronic restrictive lung disease Chronic renal disease Nonsustained ventricular tachycardia PVCs (premature ventricular contractions) CAD (coronary artery disease) Dyspnea Chronic allergic rhinitis Asthma Sarcoidosis Surgical History H/O hernia repair Stented coronary artery Family History Family History Other Asthma Social History Social History Household Members: Spouse Housing: House Do you presently have visiting nurse or other home services: No Patient Tobacco Use Status: Current someday Tobacco user Tobacco use type: Cigar e-Cigarette/Vaping Use: Never Used Second Hand Smoke Exposure: No Advance Directives: Yes Advance Directives on File: Yes Advance Directives Date on File: 09/14/23 Do you have a plan to hurt others: No Plan service: Yes Physical Exam 2 Vital Signs: Vital Signs: BMI result Body Mass Index 39.5 Appearance: Alert. Oriented X3. No acute distress. Eyes: Pupils equal, round and reactive to light. ENT: Pharynx normal. Neck: Normal inspection. Neck supple. No lymph nodes noted. No crepitus CVS: Normal heart rate and rhythm. Pulses normal. Normal S1 and S2 Respiratory: No respiratory distress. Breath sounds normal. No Wheezing. No rales Abdomen: Soft and nontender. No rigidity. No distention. good BS x4 Skin: Skin warm and dry. Normal skin color. Normal skin turgor. Extremities: No lower extremity edema. Neurovascular intact to all extremities. No Lacerations. No Rash Neuro: Oriented X 3. No motor deficit. No sensory deficit. Moving all extermities. No slurred speech Medications Administered Discontinued Medications Generic Name Dose Route Start Last Admin Trade Name Freq PRN Reason Stop Dose Admin Sodium Chloride 1,000 mls @ 999 mls/hr 09/14/23 20:45 09/14/23 22:07 Ns IV 09/14/23 21:45 999 mls/hr .Q1H1M ESTUARDO Administration Lidocaine HCl 10 ml 09/14/23 20:05 09/14/23 22:07 Lidocaine Hcl 2 % Urojet 10 Ml Jel.Pf.Shelby TOPICAL 09/14/23 20:06 10 ml ONCE ONE Administration Medical Decision Making Medical Decision Making [facility] Narrative: Patient bladder scan showed 330 cc of urine. I personally put in a 18 [place] coude catheter under sterile condition. Drained out the urine. Patient's CT scan of the abdomen showed no acute evidence of bowel obstruction. It did show evidence for a proximal ureteral stone. The stent is shown to be in place. Patient's urine showed gross infection. Antibiotic was started. Patient to be monitored IV hydration. Case discussed with urology. Consulted by the hospitalist team. To be admitted. Family made aware. Differential Diagnosis Differential Diagnoses: The differential diagnosis associated with the presentation includes Urinary retention, UTI, dehydration, C diff Admission/Observation Consideration of admission/observation: Escalation of care including admission/observation considered Consult Healthcare Provider Management of the patient was discussed with: Hospitalist and Director Of Epidemiology (Urology) Lab Data [facility] Lab Attestation statement: I reviewed the patient's lab results. 09/14/23 21:46 09/14/23 21:46 Labs: Lab Results 09/14/23 09/14/23 Range/Units 20:08 21:46 WBC 8.9 (4.8-10.8) X10*3/uL RBC 3.31 L (4.60-5.80) X10*6/uL Hgb 10.9 L (14.0-18.0) g/dl Hct 32.0 L (42.0-52.0) % MCV 96.7 (80.0-98.0) fL MCH 32.9 (27.0-33.0) pg MCHC 34.1 (31.0-36.0) g/dl RDW 13.7 (11.0-16.0) % Plt Count 130 L D (160-400) X10*3/uL MPV 11.4 (9.4-12.4) fL Immature Gran % (Auto) 0.5 H (0.0-0.4) % Neut % (Auto) 75.7 H (45-73) % Lymph % (Auto) 10.2 L (20-40) % [place] % (Auto) 12.2 H (2-11) % Eos % (Auto) 1.1 (0-4) % Baso % (Auto) 0.3 (0-2) % Lymph # (Auto) 0.9 L (1.2-4.9) X10*3/uL [place] # (Auto) 1.1 (0.1-1.2) X10*3/uL Eos # (Auto) 0.1 (0.0-0.4) X10*3/uL Baso # (Auto) 0.0 (0.0-0.2) X10*3/uL Abs Immat Gran (auto) 0.04 H (0.00-0.03) X10*3/uL Absolute Neuts (auto) 6.7 (2.0-8.3) x10*3/uL Absolute Nucleated RBC 0.000 (0.0-0.012) X10*3/uL Nucleated RBC % (auto) 0.0 (0.0-0.2) /100WBC Sodium 136 (135-145) mmol/L Potassium 4.4 (3.3-5.1) mmol/L Chloride 105 (96-108) mmol/L Carbon Dioxide 19 L (22-29) mmol/L Anion Gap 16 (12-20) BUN 12 (9-16) mg/dL Creatinine 1.38 (0.5-1.4) mg/dL Estim Creat Clear Calc 46.5 Estimated GFR 50 Random Glucose 91 (60-115) mg/dL Lactic Acid 1.3 (0.5-2.0) mmol/L Calcium 9.4 D (8.4-10.2) mg/dL Urine Color Dark Yellow Urine Appearance Cloudy Urine pH 7.0 (5.0-9.0) Ur Specific [place] 1.010 (1.005-1.025) Urine Protein 30 (1+) H (Neg-Trace) mg/dL Urine Glucose (UA) Negative (Negative) mg/dL Urine Ketones Negative (Negative) mg/dL Urine Blood Moderate (2+) H (Negative) Urine Nitrite Positive H (Negative) Ur Leukocyte Esterase Large (3+) H (Negative) Urine RBC >20 H (0-2) /HPF Urine WBC >50 H (0-5) /HPF Ur Squamous Epith Cells 0-2 (0-2) /HPF Urine Bacteria None Seen (None Seen) Hyaline Casts 0-2 (0-2) /LPF Urine Yeast Present Independent Interpretation I performed an independent interpretation of an: CT Scan Radiology Impression Discussion of test interpretation with radiology: I have reviewed the radiologist's reading. Discharge Plan Discharge Clinical Impression: Acute dehydration, Urinary tract infection Patient Disposition: Admitted As Inpatient Prescriptions: No Action losartan 25 mg tablet 25 mg PO BEDTIME Qty: 90 3RF Spiriva Respimat 2.5 mcg/actuation mist 2 inh inhalation DAILY Qty: 12 3RF albuterol sulfate 90 mcg/actuation HFA aerosol inhaler 2 inh inhalation Q6H PRN (Reason: shortness of breath or wheezing) 30 Days Qty: 18 12RF bisoprolol fumarate 5 mg tablet 5 mg PO DAILY Qty: 90 3RF multivitamin Tablet 1 tab PO DAILY Dulera 200-5 mcg/actuation Hfa Aerosol Inhaler 1 puff INHALATION BID atorvastatin 80 mg tablet 80 mg PO BEDTIME azelastine-fluticasone [Dymista] 137-50 mcg/spray [place],Non-Aerosol 2 spray INTRANASAL DAILY Rx Instructions: administer into each nostril Prevagen 1 cap PO DAILY Eliquis 5 mg tablet 5 mg PO BID Qty: 60 0RF brimonidine [Alphagan P] 0.1 % drops 1 drp ophthalmic (eye) BID Multaq 400 mg tablet 400 mg PO BID allopurinol 100 mg tablet 100 mg PO DAILY montelukast 10 mg tablet 10 mg PO DAILY@1200 potassium citrate 10 mEq (1,080 mg) tablet extended release 10 meq PO BID finasteride 5 mg tablet 5 mg PO DAILY Print Language: Ugandan
--- NOTE | 2023-09-14 20:36 | ECG_ITS ---
Test Reason : UROGENITAL Blood Pressure : / mmHG Vent. Rate : 058 BPM Atrial Rate : 058 BPM P-R Int : 208 ms QRS Dur : 106 ms QT Int : 462 ms P-R-T Axes : 040 -25 -20 degrees QTc Int : 453 ms Sinus bradycardia with frequent Premature ventricular complexes Nonspecific ST abnormality Abnormal ECG When compared with ECG of 04-SEP-2023 13:44, Premature ventricular complexes are now Present Nonspecific T wave abnormality no longer evident in Anterolateral leads Referred By: Beverly Sanchez Electronically Signed By:CASSIDY MITCHELL MD
[2023-09-14 21:57] LABS: MANUAL DIFF FLAG NO
[2023-09-14] MEDS: 0.9 % Sodium Chloride 1,000 ML 999 ML IV (22:07)
[2023-09-14] MEDS: Lidocaine HCl 2 % Urojet 10 ML JEL.PF.APP TOPICAL (22:07)
[2023-09-14 22:12] LABS: Lactic Acid 1.3 mmol/L (0.5-2.0)
[2023-09-14 22:17] LABS: Anion Gap 16 (12-20); Blood Urea Nitrogen 12 mg/dL (9-16); Calcium 9.4 mg/dL (8.4-10.2); Carbon Dioxide 19 mmol/L (22-29); Chloride 105 mmol/L (96-108); Creatinine Clr Calc Pharmacy 46.5; Estimated Glomerular Filt Rate 50; Glucose Random 91 mg/dL (60-115); Potassium 4.4 mmol/L (3.3-5.1); Sodium 136 mmol/L (135-145)
[2023-09-14 22:19] LABS: Basophils Percent Auto 0.3 % (0-2); Eosinophils Absolute Auto 0.1 X10*3/uL (0.0-0.4); Eosinophils Percent Auto 1.1 % (0-4); Hemoglobin 10.9 g/dl (14.0-18.0); Imm Gran Abs Auto 0.04 X10*3/uL (0.00-0.03); Imm Gran Pct Auto 0.5 % (0.0-0.4); Lymphocytes Absolute Auto 0.9 X10*3/uL (1.2-4.9); Lymphocytes Percent Auto 10.2 % (20-40); Mean Corpuscular HGB Conc 34.1 g/dl (31.0-36.0); Mean Corpuscular Hemoglobin 32.9 pg (27.0-33.0); Mean Corpuscular Volume 96.7 fL (80.0-98.0); Mean Platelet Volume 11.4 fL (9.4-12.4); Monocytes Absolute Auto 1.1 X10*3/uL (0.1-1.2); Monocytes Percent Auto 12.2 % (2-11); Neutrophils Absolute Auto 6.7 x10*3/uL (2.0-8.3); Neutrophils Percent Auto 75.7 % (45-73); Platelet Count 130 X10*3/uL (160-400); Red Blood Count 3.31 X10*6/uL (4.60-5.80); Red Cell Distribution Width 13.7 % (11.0-16.0); White Blood Count 8.9 X10*3/uL (4.8-10.8)
[2023-09-14] MEDS: QUEtiapine Fumarate 25 MG TABLET PO (23:07)
[2023-09-14] MEDS: cefTRIAXone sodium 1 GM in 0.9 % Sodium Chloride 50 ML IV (23:07)
[2023-09-14 23:37] VITALS: BP 126/66; PULSE 60; RESP 20; TEMP 36.7; O2SAT 99
--- NOTE | 2023-09-14 23:43 | MHC.EDTECH ---
GI panel sample collected and sent to lab. pt resting comfortably, two visitors at bedside.
--- NOTE | 2023-09-15 00:02 | P.HPHOSP_ITS ---
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 Patient was recently admitted and discharged on 09/06 with hydronephrosis in the setting of obstructing right kidney stone. Patient underwent right retrograde stent placement on 09/04 by urology. Patient states that since being discharged he was having increased urinary urgency and frequency until the day of presentation. On the day of presentation, patient with inability to urinate. Also was having lower abdominal discomfort. No fever, chills, nausea, vomiting, flank pain. Also has been having loose stools about 3-4 episodes, nonbloody for the last 2 days. Patient was on antibiotics last week for possible pneumonia. No chest discomfort, palpitations, shortness of breath. In the emergency department, Logan catheter was inserted and mood and 400 cc urine obtained. UA with 3+ leukocyte esterase, positive nitrites and more than 50 WBC. Review of Systems 2 Constitutional: Constitutional: Reports fatigue, Reports lethargy, Reports malaise and Reports weakness Cardiovascular: Cardiovascular: Reports no additional cardiovascular complaints Respiratory: Respiratory: Reports no additional respiratory complaints Gastrointestinal: Gastrointestinal: Reports diarrhea Genitourinary: Genitourinary: Reports difficulty urinating Neurologic: Reports weakness Endocrine: Endocrine: Reports fatigue [facility] Medical History Pulmonary nodules Chronic restrictive lung disease Chronic renal disease Nonsustained ventricular tachycardia PVCs (premature ventricular contractions) CAD (coronary artery disease) Dyspnea Chronic allergic rhinitis Asthma Sarcoidosis Family History Other Asthma Surgical History H/O hernia repair Stented coronary artery Social History Household Members: Spouse Housing: House Do you presently have visiting nurse or other home services: No Patient Tobacco Use Status: Current someday Tobacco user Tobacco use type: Cigar e-Cigarette/Vaping Use: Never Used Second Hand Smoke Exposure: No Advance Directives: Yes Advance Directives on File: Yes Advance Directives Date on File: 09/14/23 Do you have a plan to hurt others: No Plan service: Yes Meds Allergies Allergy/AdvReac Type Severity Reaction Status Date / Time gadobenic acid [Multihance] Allergy Severe Rash Verified 09/14/23 19:43 azithromycin Allergy Intermediate HIVES Verified 09/14/23 19:43 [From ZITHROMAX Z-JOYCE] Iodinated Contrast Media Allergy Intermediate HIVES Verified 09/14/23 19:43 [IV CONTRAST] Penicillins Allergy Mild RASH Verified 09/14/23 19:43 Home Medications ?Medication ?Instructions ?Recorded ?Confirmed ?Last Taken ?Type allopurinol 100 mg tablet 100 mg PO DAILY 04/21/20 09/04/23 08/31/23 History montelukast 10 mg tablet 10 mg PO DAILY@1200 04/21/20 09/04/23 08/31/23 History potassium citrate 10 mEq (1,080 10 meq PO BID 02/07/23 09/04/23 08/31/23 History mg) tablet,extended release finasteride 5 mg tablet 5 mg PO DAILY 06/29/23 09/04/23 08/19/23 History brimonidine 0.1 % eye drops 1 drp ophthalmic (eye) BID 08/21/23 09/04/23 08/20/23 History (Alphagan P) dronedarone 400 mg tablet (Multaq) 400 mg PO BID 08/21/23 09/04/23 08/31/23 History Prevagen 1 cap PO DAILY 09/04/23 09/04/23 Unknown History atorvastatin 80 mg tablet 80 mg PO BEDTIME 09/04/23 09/04/23 09/03/23 History azelastine 137 mcg-fluticasone 50 2 spray intranasal DAILY 09/04/23 09/04/23 Unknown History mcg/spray nasal spray (Dymista) mometasone-formoterol HFA 200 1 puff inhalation BID 09/04/23 09/04/23 08/31/23 History mcg-5 mcg/actuation aerosol inhaler (Dulera) multivitamin 1 tab PO DAILY 09/04/23 09/04/23 09/03/23 History Physical Exam 2 Vital Signs and Narrative: Vital Signs: Last Vital Signs Temp 98.0 F 09/14/23 23:37 Pulse 60 09/14/23 23:37 Resp 20 09/14/23 23:37 BP 126/66 09/14/23 23:37 Pulse Ox 99 09/14/23 23:37 O2 Del Method Room Air 09/14/23 23:37 BMI result Body Mass Index 39.5 Middle-aged male lying in bed in no distress Neck supple, no JVD Regular rate and rhythm, S1-S2 heard Regular breath sounds bilaterally, no wheezing or crackles appreciated Abdomen soft nontender, no guarding, no rigidity Patient is awake, alert and oriented to self, place, time and person ; no focal motor deficit Psych: Normal mood No pedal edema Results Labs 09/14/23 21:46 09/14/23 21:46 Labs: Laboratory Results - last 24 hr 09/14/23 09/14/23 20:08 21:46 MCV 96.7 MCH 32.9 MCHC 34.1 RDW 13.7 Plt Count 130 L D MPV 11.4 Immature Gran % (Auto) 0.5 H Neut % (Auto) 75.7 H Lymph % (Auto) 10.2 L [place] % (Auto) 12.2 H Eos % (Auto) 1.1 Baso % (Auto) 0.3 Lymph # (Auto) 0.9 L [place] # (Auto) 1.1 Eos # (Auto) 0.1 Baso # (Auto) 0.0 Abs Immat Gran (auto) 0.04 H Absolute Neuts (auto) 6.7 Absolute Nucleated RBC 0.000 Nucleated RBC % (auto) 0.0 Anion Gap 16 Estim Creat Clear Calc 46.5 Estimated GFR 50 Random Glucose 91 Lactic Acid 1.3 Calcium 9.4 D Urine Color Dark Yellow Urine Appearance Cloudy Urine pH 7.0 Ur Specific [place] 1.010 Urine Protein 30 (1+) H Urine Glucose (UA) Negative Urine Ketones Negative Urine Blood Moderate (2+) H Urine Nitrite Positive H Ur Leukocyte Esterase Large (3+) H Urine RBC >20 H Urine WBC >50 H Ur Squamous Epith Cells 0-2 Urine Bacteria None Seen Hyaline Casts 0-2 Urine Yeast Present Imaging Radiologist's Impressions: Impressions Abdomen/Pelvis CT 09/14/23 20:55 IMPRESSION: 1. Bilateral nephrolithiasis with right-sided double-J stent in place. There is a 5 mm calculus adjacent to the stent in the mid ureter. 2. Other incidental findings as described above. Fleischner guidelines were followed. 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 #. Acute urinary retention due to ?acute complicated UTI: Will admit patient and initiate empiric IV Rocephin. Patient with recent stent placement and history of BPH. More than 400 cc urine obtained with Logan catheter insertion in the ER. As per the nurse, more than 900 cc urine obtained in the 1st couple of hours. Consulting Urology, appreciate assistance #. Diarrhea: GI panel and C diff pending (patient with recent antibiotics). #. Paroxysmal atrial flutter: Rate controlled in the ER. On Eliquis. Patient on beta-miguel angel and Multaq #. BPH: On finasteride #. Mild intermittent asthma: No exacerbation during admission. Continue home inhalers #. Mixed hyperlipidemia: On statin #. Hypertension: On losartan Med rec pending DVT prophylaxis: Neel Full code Admit as inpatient and will require two night minimum hospital stay for IV antibiotics, evaluation of urinary retention and diarrhea (as above), which is not possible in a lesser acute setting. Specialist consult pending Quality Stroke Does the patient have a stroke diagnosis?: No VTE Prior VTE?: No VTE Risk Level:: Medical - moderate - high VTE Device Contraindication: Treatment Not Indicated VTE Drug Contraindication: N/A - Med Ordered
[2023-09-15] MEDS: OLANZapine 10 MG VIAL 5 MG IM (00:49)
[2023-09-15] MEDS: 0.9 % Sodium Chloride Flush 3 ML SYRINGE IVFLUSH ×2 (03:44→18:06)
[2023-09-15 04:00] VITALS: BP 113/67; PULSE 66; RESP 16; TEMP 36.7; O2SAT 95
[2023-09-15 06:44] LABS: Creatinine Clr Calc Pharmacy 48.3; Estimated Glomerular Filt Rate 52; Potassium 5.1 mmol/L (3.3-5.1)
[2023-09-15 06:45] LABS: Anion Gap 16 (12-20); Blood Urea Nitrogen 13 mg/dL (9-16); Carbon Dioxide 16 mmol/L (22-29); Chloride 110 mmol/L (96-108); Glucose Random 87 mg/dL (60-115); Sodium 137 mmol/L (135-145)
--- NOTE | 2023-09-15 08:32 | PC.NURSE ---
this RN resumed care of pt at 0645. pt alert and oriented but seemingly confused at times. pt easily redirectable/follows commands appropriately. vss and up to date. resting comfortably in no apparent distress. no sob/wob noted. respirations even/unlabored. 1:1 sitter present bedside for safety precautions. admission worksheet complete. transport notified/aware at this time.
--- NOTE | 2023-09-15 09:13 | PHA.MEDREC ---
Addendum entered by Kiki Damico, [facility] 09/15/23 09:45: REVIEWED Original Note: Pharmacy Consult ? Medication Reconciliation Pharmacy has completed the medication reconciliation. spoke to patient's over the phone. She confirmed all his medications, which matched recent discharge note from 09/06. Notably, she stated that the eliquis was held on August 26 for the dental procedure and she has held it since the last admission after speaking to the doctor. This seems to contradict the discharge packet from 09/06 which provides a new prescription for eliquis with a start date of that day. Will leave last known dose at 08/27/2023.
--- NOTE | 2023-09-15 09:15 | P.PNIM_ITS ---
Subjective Subjective Date of Service: 09/15/23 Interval History: weakness improving, no further diarrhea Physical Exam 2 Vital Signs: Vital Signs: Last Vital Signs Temp 98.0 F 09/15/23 04:00 Pulse 66 09/15/23 04:00 Resp 16 09/15/23 04:00 BP 113/67 09/15/23 04:00 Pulse Ox 95 09/15/23 04:00 O2 Del Method Room Air 09/15/23 04:00 BMI result Body Mass Index 39.5 General: AO X 3, no acute distress Resp: CTA bilateral, no accessory muscles used CVS: S1,S2,RRR GI: soft, non tender, non distended Neuro: motor grossly intact, alert Psych: appropriate affect, appropriate insight Objective Data Active Medications Acetaminophen (Acetaminophen 325 Mg Tablet) 650 mg PO Q6H PRN PRN Reason: Pain, Mild (Pain Scale 1-3), fever or headache Calcium Carbonate (Calcium Carbonate 750 Mg Tab.Chew) 750 mg PO Q4H PRN PRN Reason: Heartburn Ceftriaxone Sodium 1 gm/ (Sodium Chloride) 50 mls @ 100 mls/hr IV Q24H [facility] Magnesium Hydroxide (Milk Of Magnesia 30 Ml Oral.Susp) 30 ml PO DAILY PRN PRN Reason: Constipation Melatonin (Melatonin 3 Mg Tablet) 6 mg PO BEDTIME PRN PRN Reason: Insomnia Ondansetron HCl (Ondansetron Hcl 4 Mg/2 Ml Vial) 4 mg IVPUSH Q8H PRN PRN Reason: Nausea and Vomiting Sodium Chloride (0.9 % Sodium Chloride Flush 3 Ml Syringe) 3 ml IVFLUSH QSHIFT [facility] Last Admin: 09/15/23 07:33 Dose: Not Given Documented By: YUDY Non-Admin Reason: Patient Asleep Labs 09/14/23 21:46 09/15/23 05:28 Labs: Laboratory Results - last 24 hr 09/14/23 09/14/23 09/15/23 20:08 21:46 05:28 MCV 96.7 MCH 32.9 MCHC 34.1 RDW 13.7 Plt Count 130 L D MPV 11.4 Immature Gran % (Auto) 0.5 H Neut % (Auto) 75.7 H Lymph % (Auto) 10.2 L [place] % (Auto) 12.2 H Eos % (Auto) 1.1 Baso % (Auto) 0.3 Lymph # (Auto) 0.9 L [place] # (Auto) 1.1 Eos # (Auto) 0.1 Baso # (Auto) 0.0 Abs Immat Gran (auto) 0.04 H Absolute Neuts (auto) 6.7 Absolute Nucleated RBC 0.000 Nucleated RBC % (auto) 0.0 Anion Gap 16 16 Estim Creat Clear Calc 46.5 48.3 Estimated GFR 50 52 Random Glucose 91 87 Lactic Acid 1.3 Calcium 9.4 D 9.0 Urine Color Dark Yellow Urine Appearance Cloudy Urine pH 7.0 Ur Specific [place] 1.010 Urine Protein 30 (1+) H Urine Glucose (UA) Negative Urine Ketones Negative Urine Blood Moderate (2+) H Urine Nitrite Positive H Ur Leukocyte Esterase Large (3+) H Urine RBC >20 H Urine WBC >50 H Ur Squamous Epith Cells 0-2 Urine Bacteria None Seen Hyaline Casts 0-2 Urine Yeast Present Assessment and Plan (1) Diarrhea: Status: Acute Plan 78M PMH pafib, bph, copd, hld, gout, htn, presented with weakness, urinary retnetnion Acute urinary retention complicated by urinary tract infection Continue Logan, ceftriaxone, follow-up cultures, Urology Diarrhea Follow-up PCR Paroxysmal atrial flutter Continue beta-miguel angel, Multaq, Eliquis BPH Finasteride Hyperlipidemia Continue statin Hypertension Continue losartan DVT prophylaxis on Eliquis Full code reason for continued hospitalization: Awaiting cultures Quality Stroke Does the patient have a stroke diagnosis?: No VTE Prior VTE?: No VTE Risk Level:: Medical - moderate - high VTE Device Contraindication: Treatment Not Indicated VTE Drug Contraindication: N/A - Med Ordered
[2023-09-15 09:23] VITALS: BP 143/68; PULSE 60; RESP 16; TEMP 36.5; O2SAT 95
[2023-09-15 10:01] LABS: Basophils Percent Auto 0.3 % (0-2); Eosinophils Absolute Auto 0.1 X10*3/uL (0.0-0.4); Eosinophils Percent Auto 1.1 % (0-4); Hemoglobin 11.7 g/dl (14.0-18.0); Imm Gran Abs Auto 0.07 X10*3/uL (0.00-0.03); Imm Gran Pct Auto 0.7 % (0.0-0.4); Lymphocytes Absolute Auto 0.9 X10*3/uL (1.2-4.9); Lymphocytes Percent Auto 9.3 % (20-40); Mean Corpuscular HGB Conc 33.4 g/dl (31.0-36.0); Mean Corpuscular Hemoglobin 33.1 pg (27.0-33.0); Mean Corpuscular Volume 98.9 fL (80.0-98.0); Mean Platelet Volume 11.3 fL (9.4-12.4); Monocytes Absolute Auto 1.2 X10*3/uL (0.1-1.2); Monocytes Percent Auto 12.4 % (2-11); Neutrophils Absolute Auto 7.2 x10*3/uL (2.0-8.3); Neutrophils Percent Auto 76.2 % (45-73); Platelet Count 124 X10*3/uL (160-400); Red Blood Count 3.54 X10*6/uL (4.60-5.80); Red Cell Distribution Width 13.7 % (11.0-16.0); White Blood Count 9.5 X10*3/uL (4.8-10.8)
[2023-09-15 10:09] LABS: MANUAL DIFF FLAG NO
[2023-09-15] MEDS: Finasteride 5 MG TABLET PO (10:30)
[2023-09-15] MEDS: Montelukast Sodium 10 MG TABLET PO (10:30)
[2023-09-15] MEDS: Dronedarone HCl 400 MG TABLET PO (10:30)
[2023-09-15] MEDS: Apixaban 5 MG TABLET PO (10:31)
[2023-09-15] MEDS: Bisoprolol Fumarate 5 MG TABLET PO (10:35)
[2023-09-15 10:55] LABS: Adenovirus F 40/41 Not Detected (Not Detect.); Astrovirus Not Detected (Not Detect.); Campylobacter Not Detected (Not Detect.); Cryptosporidium Not Detected (Not Detect.); Cyclospora cayetanensis Not Detected (Not Detect.); E. coli EAEC Not Detected (Not Detect.); E. coli EPEC Not Detected (Not Detect.); E. coli ETEC Not Detected (Not Detect.); E. coli STEC Not Detected (Not Detect.); Entamoeba histolytica Not Detected (Not Detect.); Giardia lamblia Not Detected (Not Detect.); Norovirus GI/GII Not Detected (Not Detect.); Plesiomonas shigelloides Not Detected (Not Detect.); Rotavirus A Not Detected (Not Detect.); Salmonella Not Detected (Not Detect.); Sapovirus Not Detected (Not Detect.); Shigella sp./EIEC Not Detected (Not Detect.); Vibrio Not Detected (Not Detect.); Vibrio Cholerae Not Detected (Not Detect.); Yersinia enterocolitica Not Detected (Not Detect.)
--- NOTE | 2023-09-15 11:33 | MHC.CLN ---
NUTRITION PER PRIOR ADM 09/06/23, FAMILY WOULD LIKE PATIENT TO HAVE ENSURE TID. SUPPLEMENT ORDERED. PROVIDES 1050 KCALS, 60 G PROTEIN.
[2023-09-15 12:15] VITALS: TEMP 37.6
--- NOTE | 2023-09-15 12:45 | MHC.CLN ---
NUTRITION CONSULT FOR POOR PO INTAKE. VISITED WITH FAMILY. DOES NOT TAKE ENSURE SUPPLEMENT. HAS AT HOME AND DOES NOT TAKE/LIKE. ADDING MAGIC CUP TID TO INCREASE CALORIC INTAKE. SUPPLEMENT PROVIDES 870 KCALS, 27 G PROTEIN. LIBERALIZE DIET FROM CARDIAC TO REGULAR TO PROMOTE PO INTAKE.
--- NOTE | 2023-09-15 15:02 | PM.UROCN ---
History of Present Illness Consult details Consult date: 09/15/23 Narrative: 78-year-old male presented to ED with having lower abdominal pain, difficulty with urination. Feeling very weak tired. Having diarrhea, generalized malaise. History of having a right stent placed on September 04 for a obstructing ureteral stone. CTAP - right ureteral stent in good position, B/L renal stones, right ureteral stone along stent. Review of Systems Review of Systems: Yes all other systems are reviewed and are negative Constitutional: Constitutional: Reports no additional constitutional complaints Eyes: Eyes: Reports no additional eye complaints ENT: Reports system reviewed and no additional complaints, except as documented Cardiovascular: Cardiovascular: Reports no additional cardiovascular complaints Respiratory: Respiratory: Reports no additional respiratory complaints Gastrointestinal: Gastrointestinal: Reports no additional gastrointestinal complaints Genitourinary: Genitourinary: Reports as per HPI Musculoskeletal: Musculoskeletal: Reports no additional musculoskeletal complaints Integumentary/Breasts: Skin/Breast: Reports system reviewed and no additional complaints, except as docu Neurologic: Reports system reviewed and no additional complaints, except as documented Psychiatric: Psychiatric: Reports no additional psychiatric complaints Endocrine: Endocrine: Reports no additional endocrine complaints Hematologic/Lymphatic: Hematologic/Lymphatic: Reports no additional hematologic/lymphatic complaints Allergic/Immunologic: Allergic/Immunologic: Reports no additional allergic/immunologic complaints PMFSH Past Medical History Medical History Pulmonary nodules Chronic restrictive lung disease Chronic renal disease Nonsustained ventricular tachycardia PVCs (premature ventricular contractions) CAD (coronary artery disease) Dyspnea Chronic allergic rhinitis Asthma Sarcoidosis Family History Family History Other Asthma Surgical History Surgical History H/O hernia repair Stented coronary artery Social History Social History Household Members: Spouse Housing: House Do you presently have visiting nurse or other home services: No Alcohol intake: never Patient Tobacco Use Status: Never used Tobacco Tobacco use type: Cigar Smoked in Last 30 Days: No e-Cigarette/Vaping Use: Never Used Second Hand Smoke Exposure: No Use of substances other than those prescribed or required for medical reasons: No Currently Displaying Signs/Symptoms of Drug Intoxication Withdrawal: No Have you been hit, kicked, punched, or otherwise hurt by someone within the past year? If so, by whom?: No Do you feel safe in your current relationship?: Yes Is there a partner from a previous relationship who is making you feel unsafe now?: No Are you made to feel afraid or neglected: No Advance Directives: Yes Advance Directives Information Provided: Yes Advance Directives on File: Yes Advance Directives Date on File: 09/14/23 Do you have a plan to hurt others: No Plan Recently lost weight without trying: Yes How much weight loss: 2-13 pounds Eating poorly because of decreased appetite: Yes Nutrition screen score: 4 Nutrition Risks: Poor intake 0-25% >4 days Poor oral hygiene: No service: Yes Meds Allergies Allergy/AdvReac Type Severity Reaction Status Date / Time gadobenic acid [Multihance] Allergy Severe Rash Verified 09/14/23 19:43 azithromycin Allergy Intermediate HIVES Verified 09/14/23 19:43 [From ZITHROMAX Z-JOYCE] Iodinated Contrast Media Allergy Intermediate HIVES Verified 09/14/23 19:43 [IV CONTRAST] Penicillins Allergy Mild RASH Verified 09/14/23 19:43 Active Medications: Current Medications Acetaminophen (Acetaminophen 325 Mg Tablet) 650 mg PO Q6H PRN PRN Reason: Pain, Mild (Pain Scale 1-3), fever or headache Allopurinol (Allopurinol 100 Mg Tablet) 100 mg PO DAILY [facility] Apixaban (Apixaban 5 Mg Tablet) 5 mg PO BID [facility] Last Admin: 09/15/23 10:31 Dose: 5 mg Atorvastatin Calcium (Atorvastatin Calcium 80 Mg Tablet) 80 mg PO BEDTIME [facility] Bisoprolol Fumarate (Bisoprolol Fumarate 5 Mg Tablet) 5 mg PO DAILY [facility] Last Admin: 09/15/23 10:35 Dose: 5 mg Brimonidine Tartrate (Brimonidine Tartrate 0.2% Oph 5 Ml Bottle) 1 drop EYE-BOTH BID [facility] Calcium Carbonate (Calcium Carbonate 750 Mg Tab.Chew) 750 mg PO Q4H PRN PRN Reason: Heartburn Dronedarone (Dronedarone Hcl 400 Mg Tablet) 400 mg PO BID [facility] Last Admin: 09/15/23 10:30 Dose: 400 mg Finasteride (Finasteride 5 Mg Tablet) 5 mg PO DAILY [facility] Last Admin: 09/15/23 10:30 Dose: 5 mg Ceftriaxone Sodium 1 gm/ (Sodium Chloride) 50 mls @ 100 mls/hr IV Q24H [facility] Losartan Potassium (Losartan Potassium 25 Mg Tablet) 25 mg PO BEDTIME [facility]; Protocol Magnesium Hydroxide (Milk Of Magnesia 30 Ml Oral.Susp) 30 ml PO DAILY PRN PRN Reason: Constipation Melatonin (Melatonin 3 Mg Tablet) 6 mg PO BEDTIME PRN PRN Reason: Insomnia Montelukast Sodium (Montelukast Sodium 10 Mg Tablet) 10 mg PO DAILY@1200 [facility] Last Admin: 09/15/23 10:30 Dose: 10 mg Non-Formulary Medication (Mometasone-Formoterol [Dulera]) 1 puff INHALE BID [facility] Ondansetron HCl (Ondansetron Hcl 4 Mg/2 Ml Vial) 4 mg IVPUSH Q8H PRN PRN Reason: Nausea and Vomiting Sodium Chloride (0.9 % Sodium Chloride Flush 3 Ml Syringe) 3 ml IVFLUSH QSHIFT [facility] Last Admin: 09/15/23 07:33 Dose: Not Given Tiotropium [place] (Tiotropium [place] 2.5 Mcg 1 Puff/2.5 Mcg Mist.Inhal) 2 puff INHALE RDAILY [facility] Last Admin: 09/15/23 10:17 Dose: Not Given Home Medications ?Medication ?Instructions ?Recorded ?Confirmed ?Last Taken ?Type allopurinol 100 mg tablet 100 mg PO DAILY 04/21/20 09/15/23 09/14/23 History montelukast 10 mg tablet 10 mg PO DAILY@1200 04/21/20 09/15/23 09/14/23 History potassium citrate 10 mEq (1,080 10 meq PO BID 02/07/23 09/15/23 09/14/23 History mg) tablet,extended release finasteride 5 mg tablet 5 mg PO DAILY 06/29/23 09/15/23 09/14/23 History brimonidine 0.1 % eye drops 1 drp ophthalmic (eye) BID 08/21/23 09/15/23 09/14/23 History (Alphagan P) dronedarone 400 mg tablet (Multaq) 400 mg PO BID 08/21/23 09/15/23 09/14/23 History atorvastatin 80 mg tablet 80 mg PO BEDTIME 09/04/23 09/15/23 09/14/23 History mometasone-formoterol HFA 200 1 puff inhalation BID 09/04/23 09/15/23 09/14/23 History mcg-5 mcg/actuation aerosol inhaler (Dulera) Physical Exam Vital Signs: Vital Signs: Last Vital Signs Temp 99.7 F 09/15/23 12:15 Pulse 60 09/15/23 09:23 Resp 16 09/15/23 09:23 BP 143/68 H 09/15/23 09:23 Pulse Ox 95 09/15/23 09:23 O2 Del Method Room Air 09/15/23 09:23 BMI result Body Mass Index 39.5 Const: General: no acute distress and well developed Orientation/consciousness: patient oriented x3 HEENT: Head: Yes normocephalic and Yes atraumatic Eyes: Conjunctivae: conjunctivae normal Neck: Neck: Yes normal visual inspection Chest: Chest palpation & inspection: normal inspection of the chest Resp: Effort & Inspection: normal respiratory effort Cardio: Rate: regular rate GI: Inspection: Yes normal to inspection Palpation (GI): Soft to palpation Skin: General skin exam: no rashes or lesions noted Neuro: General: patient oriented x3 Extrem: General: No pedal edema Psych: Appearance: grossly normal Affect: normal affect Results Labs 09/15/23 09:35 09/15/23 05:28 Labs: Abnormal lab results 09/14/23 09/14/23 09/15/23 Range/Units 20:08 21:46 05:28 RBC 3.31 L (4.60-5.80) X10*6/uL Hgb 10.9 L (14.0-18.0) g/dl Hct 32.0 L (42.0-52.0) % MCV (80.0-98.0) fL MCH (27.0-33.0) pg Plt Count 130 L D (160-400) X10*3/uL Immature Gran % (Auto) 0.5 H (0.0-0.4) % Neut % (Auto) 75.7 H (45-73) % Lymph % (Auto) 10.2 L (20-40) % [place] % (Auto) 12.2 H (2-11) % Lymph # (Auto) 0.9 L (1.2-4.9) X10*3/uL Abs Immat Gran (auto) 0.04 H (0.00-0.03) X10*3/uL Chloride 110 H (96-108) mmol/L Carbon Dioxide 19 L 16 L (22-29) mmol/L Urine Protein 30 (1+) H (Neg-Trace) mg/dL Urine Blood Moderate (2+) H (Negative) Urine Nitrite Positive H (Negative) Ur Leukocyte Esterase Large (3+) H (Negative) Urine RBC >20 H (0-2) /HPF Urine WBC >50 H (0-5) /HPF 09/15/23 Range/Units 09:35 RBC 3.54 L (4.60-5.80) X10*6/uL Hgb 11.7 L (14.0-18.0) g/dl Hct 35.0 L (42.0-52.0) % MCV 98.9 H (80.0-98.0) fL MCH 33.1 H (27.0-33.0) pg Plt Count 124 L (160-400) X10*3/uL Immature Gran % (Auto) 0.7 H (0.0-0.4) % Neut % (Auto) 76.2 H (45-73) % Lymph % (Auto) 9.3 L (20-40) % [place] % (Auto) 12.4 H (2-11) % Lymph # (Auto) 0.9 L (1.2-4.9) X10*3/uL Abs Immat Gran (auto) 0.07 H (0.00-0.03) X10*3/uL Chloride (96-108) mmol/L Carbon Dioxide (22-29) mmol/L Urine Protein (Neg-Trace) mg/dL Urine Blood (Negative) Urine Nitrite (Negative) Ur Leukocyte Esterase (Negative) Urine RBC (0-2) /HPF Urine WBC (0-5) /HPF Short CBC 09/14/23 09/15/23 Range/Units 21:46 09:35 WBC 8.9 9.5 (4.8-10.8) X10*3/uL Hgb 10.9 L 11.7 L (14.0-18.0) g/dl Hct 32.0 L 35.0 L (42.0-52.0) % Plt Count 130 L D 124 L (160-400) X10*3/uL BMP 09/14/23 09/15/23 21:46 05:28 Sodium 136 137 Potassium 4.4 5.1 Chloride 105 110 H Carbon Dioxide 19 L 16 L BUN 12 13 Creatinine 1.38 1.33 Calcium 9.4 D 9.0 Urine 09/14/23 Range/Units 20:08 Urine Color Dark Yellow Urine Appearance Cloudy Urine pH 7.0 (5.0-9.0) Ur Specific [place] 1.010 (1.005-1.025) Urine Protein 30 (1+) H (Neg-Trace) mg/dL Urine Glucose (UA) Negative (Negative) mg/dL All other labs normal. Imaging Additional studies: Date of Service: 09/14/23 EXAMINATION: CT ABDOMEN AND PELVIS WITHOUT CONTRAST CLINICAL INFORMATION: History of kidney stones status post stent COMPARISON: CT abdomen pelvis 09/04/2023 TECHNIQUE: Multidetector volumetric imaging was performed from the superior aspect of the liver through the pubic symphysis. Sagittal and coronal reformatted images were obtained on the technologist's workstation. This CT examination was performed using dose optimization techniques as appropriate, variously including the following: *Automated exposure control *Adjustment of mA and/or kV according to patient size (this includes techniques or standardized protocols for targeted exams where dose is matched to indication/reason for exam; i.e. extremities or head) *Use of iterative reconstruction technique DLP: 741 mGy-cm FINDINGS: LUNG BASES: Calcified granulomas are present along with traction bronchiectasis and scarring. LIVER, GALLBLADDER, AND BILIARY TREE: The liver is normal in size, shape, and attenuation. No focal hepatic lesion or biliary ductal dilatation is present. The gallbladder is unremarkable with no evidence of radiopaque gallstones, gallbladder wall thickening, or obvious pericholecystic inflammatory changes. PANCREAS: Unremarkable. SPLEEN: Unremarkable. ADRENAL GLANDS: Unremarkable. KIDNEYS AND URETERS: On the right, a double-J internally stent is present. Multiple small intrarenal calculi are seen. There is one larger calculus at the UP junction measuring 0.8 cm. There is a 5 mm calculus adjacent to the stent in the mid ureter. Multiple nonobstructing calculi present in the left kidney. A benign left mid renal 1.0 cm Bosniak class I renal cyst is noted which requires no additional imaging or follow up. No solid renal masses are seen. BLADDER: Logan catheter is present in the bladder GASTROINTESTINAL TRACT: The small and large bowel are unremarkable. The appendix is unremarkable. ABDOMINAL WALL: Tiny periumbilical hernia contains only fat. There is a tiny left inguinal hernia seen containing only fat. LYMPH NODES: No retroperitoneal lymphadenopathy. VASCULAR: Unremarkable. PELVIC VISCERA: The prostate and seminal vesicles are unremarkable. OSSEOUS STRUCTURES: There is a right total hip prosthesis present. Marked degenerative changes are present throughout the spine with mild scoliosis convex to right. IMPRESSION: 1. Bilateral nephrolithiasis with right-sided double-J stent in place. There is a 5 mm calculus adjacent to the stent in the mid ureter. 2. Other incidental findings as described above. Assessment and Plan (1) Diarrhea: Status: Acute (2) Urinary retention: Status: Acute (3) Chronic renal disease: Qualifiers: Chronic kidney disease stage: unspecified stage Qualified Code(s): N18.9 - Chronic kidney disease, unspecified Status: Acute (4) Bilateral kidney stones: Status: Acute (5) Ureteral stent present: Status: Acute (6) Ureteral calculus, right: Status: Acute (7) BPH loc w urin obs/LUTS: Status: Acute Plan Pt is on proscar at home Flomax ordered Recommend voiding trial prior to discharge FU with Urology for further stone management Procedures Date of Service Date of Service: 09/15/23
[2023-09-15 15:33] VITALS: BP 126/66; PULSE 60; RESP 20; TEMP 37.2; O2SAT 97
[2023-09-15] MEDS: Acetaminophen 325 MG TABLET 650 MG PO (18:12)
[2023-09-15 19:19] VITALS: BP 118/64; PULSE 63; RESP 18; TEMP 36.5; O2SAT 95
[2023-09-15 19:22] VITALS: PULSE 58; O2SAT 91
[2023-09-15] MEDS: Brimonidine Tartrate 0.2% Oph 5 ML BOTTLE 1 DROP EYE-BOTH (20:56)
[2023-09-15] MEDS: cefTRIAXone sodium 1 GM in 0.9 % Sodium Chloride 50 ML IV (21:04)
[2023-09-16] VITALS (7 sets, daily range): BP systolic 107–141; BP diastolic 58–96; PULSE 57–74; RESP 16–17; TEMP 36.1–36.4; O2SAT 92–95
[2023-09-16 07:43] LABS: Alanine Aminotransferase 23 U/L (0-40); Albumin Level 3.1 g/dL (3.5-5.0); Alkaline Phosphatase 76 U/L (39-117); Anion Gap 15 (12-20); Aspartate Amino Transferase 29 U/L (5-37); Bilirubin Direct 0.2 mg/dL (0.0-0.5); Bilirubin Total 0.6 mg/dL (0.0-1.0); Blood Urea Nitrogen 13 mg/dL (9-16); Calcium 9.1 mg/dL (8.4-10.2); Carbon Dioxide 20 mmol/L (22-29); Chloride 110 mmol/L (96-108); Creatinine Clr Calc Pharmacy 51.3; Estimated Glomerular Filt Rate 56; Glucose Fasting 76 mg/dL (60-99); Sodium 141 mmol/L (135-145); Total Protein 6.6 g/dL (6.5-8.0)
[2023-09-16] MEDS: Tiotropium Bromide 2.5 mcg 1 PUFF/2.5 MCG MIST.INHAL 2 PUFF INHALE (08:07)
[2023-09-16] MEDS: Finasteride 5 MG TABLET PO (08:41)
[2023-09-16] MEDS: Apixaban 5 MG TABLET PO ×2 (08:41→20:48)
[2023-09-16] MEDS: Dronedarone HCl 400 MG TABLET PO ×2 (08:41→20:48)
[2023-09-16] MEDS: Bisoprolol Fumarate 5 MG TABLET PO (08:41)
[2023-09-16] MEDS: Brimonidine Tartrate 0.2% Oph 5 ML BOTTLE 1 DROP EYE-BOTH ×2 (08:41→20:49)
[2023-09-16] MEDS: allopurinoL 100 MG TABLET PO (08:41)
[2023-09-16] MEDS: 0.9 % Sodium Chloride Flush 3 ML SYRINGE IVFLUSH ×3 (08:42→20:53)
--- NOTE | 2023-09-16 09:12 | HO.PM.IMPN ---
Subjective Subjective Date of Service: 09/16/23 Interval History: feeling stronger Physical Exam Vital Signs: Vital Signs: Last Vital Signs Temp 97.2 F 09/16/23 08:00 Pulse 74 09/16/23 08:07 Resp 16 09/16/23 08:07 BP 141/96 H 09/16/23 08:00 Pulse Ox 95 09/16/23 08:00 O2 Del Method Room Air 09/16/23 08:00 BMI result Body Mass Index 39.5 General: AO X 3, no acute distress Resp: CTA bilateral, no accessory muscles used CVS: S1,S2,RRR GI: soft, non tender, non distended Neuro: motor grossly intact, alert Psych: appropriate affect, appropriate insight Objective Data Active Medications Acetaminophen (Acetaminophen 325 Mg Tablet) 650 mg PO Q6H PRN PRN Reason: Pain, Mild (Pain Scale 1-3), fever or headache Last Admin: 09/15/23 18:12 Dose: 650 mg Documented By: DRU Allopurinol (Allopurinol 100 Mg Tablet) 100 mg PO DAILY [facility] Last Admin: 09/16/23 08:41 Dose: 100 mg Documented By: ADAM Apixaban (Apixaban 5 Mg Tablet) 5 mg PO BID [facility] Last Admin: 09/16/23 08:41 Dose: 5 mg Documented By: ADAM Artificial Tears (Artificial Tears 15 Ml Drops) 2 drop EYE-BOTH Q4H PRN PRN Reason: Dry Eyes Last Admin: 09/16/23 08:41 Dose: 2 drop Documented By: ADAM Atorvastatin Calcium (Atorvastatin Calcium 80 Mg Tablet) 80 mg PO BEDTIME [facility] Last Admin: 09/15/23 21:02 Dose: Not Given Documented By: SARWAT Non-Admin Reason: Patient Refused Bisoprolol Fumarate (Bisoprolol Fumarate 5 Mg Tablet) 5 mg PO DAILY [facility] Last Admin: 09/16/23 08:41 Dose: 5 mg Documented By: ADAM Brimonidine Tartrate (Brimonidine Tartrate 0.2% Oph 5 Ml Bottle) 1 drop EYE-BOTH BID [facility] Last Admin: 09/16/23 08:41 Dose: 1 drop Documented By: ADAM Calcium Carbonate (Calcium Carbonate 750 Mg Tab.Chew) 750 mg PO Q4H PRN PRN Reason: Heartburn Dronedarone (Dronedarone Hcl 400 Mg Tablet) 400 mg PO BID [facility] Last Admin: 09/16/23 08:41 Dose: 400 mg Documented By: ADAM Finasteride (Finasteride 5 Mg Tablet) 5 mg PO DAILY [facility] Last Admin: 09/16/23 08:41 Dose: 5 mg Documented By: ADAM Ceftriaxone Sodium 1 gm/ (Sodium Chloride) 50 mls @ 100 mls/hr IV Q24H [facility] Last Infusion: 09/15/23 21:34 Dose: Infused Documented By: SARWAT Losartan Potassium (Losartan Potassium 25 Mg Tablet) 25 mg PO BEDTIME [facility]; Protocol Last Admin: 09/15/23 21:02 Dose: Not Given Documented By: SARWAT Non-Admin Reason: Patient Refused Magnesium Hydroxide (Milk Of Magnesia 30 Ml Oral.Susp) 30 ml PO DAILY PRN PRN Reason: Constipation Melatonin (Melatonin 3 Mg Tablet) 6 mg PO BEDTIME PRN PRN Reason: Insomnia Montelukast Sodium (Montelukast Sodium 10 Mg Tablet) 10 mg PO DAILY@1200 [facility] Last Admin: 09/15/23 10:30 Dose: 10 mg Documented By: DRU Patient Own Med( Mometasone- Formoterol [Dulera] 200-5 Mcg/Actuation Hfa Aerosol I 1 puff INHALE BID [facility] Last Admin: 09/16/23 08:06 Dose: 1 puff Documented By: KEIRA Ondansetron HCl (Ondansetron Hcl 4 Mg/2 Ml Vial) 4 mg IVPUSH Q8H PRN PRN Reason: Nausea and Vomiting Sodium Chloride (0.9 % Sodium Chloride Flush 3 Ml Syringe) 3 ml IVFLUSH QSHIFT [facility] Last Admin: 09/16/23 08:42 Dose: 3 ml Documented By: ADAM Tamsulosin HCl (Tamsulosin Hcl 0.4 Mg Capsule) 0.4 mg PO BEDTIME [facility] Last Admin: 09/15/23 21:02 Dose: Not Given Documented By: SARWAT Non-Admin Reason: Patient Refused Tiotropium [place] (Tiotropium [place] 2.5 Mcg 1 Puff/2.5 Mcg Mist.Inhal) 2 puff INHALE RDAILY [facility] Last Admin: 09/16/23 08:07 Dose: 2 puff Documented By: KEIRA Labs 09/15/23 09:35 09/16/23 05:45 Labs: Laboratory Results - last 24 hr 09/14/23 09/15/23 09/16/23 23:38 09:35 05:45 MCV 98.9 H MCH 33.1 H MCHC 33.4 RDW 13.7 Plt Count 124 L MPV 11.3 Immature Gran % (Auto) 0.7 H Neut % (Auto) 76.2 H Lymph % (Auto) 9.3 L [place] % (Auto) 12.4 H Eos % (Auto) 1.1 Baso % (Auto) 0.3 Lymph # (Auto) 0.9 L [place] # (Auto) 1.2 Eos # (Auto) 0.1 Baso # (Auto) 0.0 Abs Immat Gran (auto) 0.07 H Absolute Neuts (auto) 7.2 Absolute Nucleated RBC 0.000 Nucleated RBC % (auto) 0.0 Hold Purple Top SEE NOTE Anion Gap 15 Estim Creat Clear Calc 51.3 Estimated GFR 56 Fasting Glucose 76 Calcium 9.1 Total Bilirubin 0.6 Direct Bilirubin 0.2 AST 29 ALT 23 Alkaline Phosphatase 76 Total Protein 6.6 Albumin 3.1 L Stl C. cayetanensis PCR Not Detected Stool Rotavirus A PCR Not Detected Stl Adenov F 40/41 PCR Not Detected Stool Astrovirus (PCR) Not Detected Stool Campylobacter PCR Not Detected Stool Cryptosporidium PCR Not Detected Stl Sh Tox Pr E STEC PCR Not Detected Stool E coli O157 PCR Not applicable Stl Enterotoxigenic E PCR Not Detected Stool EPEC (PCR) Not Detected Stool EAEC (PCR) Not Detected Stl E. histolytica PCR Not Detected Stool Giardia [place]lia PCR Not Detected Stl P. shigelloides PCR Not Detected Stool Salmonella PCR Not Detected Stool Sapovirus (PCR) Not Detected Stl Shigella/EIEC PCR Not Detected St Y.enterocolitica PCR Not Detected Stool Vibrio (PCR) Not Detected Stl Vibrio cholerae PCR Not Detected Stl Norovirus GI/GII PCR Not Detected Microbiology Microbiology Results: Microbiology 09/14/23 21:46 Blood Culture - Preliminary Blood - Venous No growth after 24 hours. 09/14/23 21:46 Blood Culture - Preliminary Blood - Venous No growth after 24 hours. 09/14/23 Unknown Urine Culture - Preliminary Urine clean catch - Clean Catch Midstream Culture too young to evaluate. Assessment and Plan (1) Diarrhea: Status: Acute Plan 78M PMH pafib, bph, copd, hld, gout, htn, presented with weakness, urinary retnetnion Acute urinary retention complicated by urinary tract infection Continue Logan, ceftriaxone, follow-up cultures, Urology appreciated - flomax, TOV prior to discharge Diarrhea stool pcr negative, improving Paroxysmal atrial flutter Continue beta-miguel angel, Multaq, Eliquis BPH Finasteride Hyperlipidemia Continue statin Hypertension Continue losartan DVT prophylaxis on Eliquis Full code reason for continued hospitalization: Awaiting cultures Quality Stroke Does the patient have a stroke diagnosis?: No VTE Prior VTE?: No VTE Risk Level:: Medical - moderate - high VTE Device Contraindication: Treatment Not Indicated VTE Drug Contraindication: N/A - Med Ordered
[2023-09-16] MEDS: Montelukast Sodium 10 MG TABLET PO (12:20)
--- NOTE | 2023-09-16 15:20 | MHC.CM.PN ---
PT REPORTS HE LIVES WITH HIS AND IS INDEPENDENT WITH CARE PT USES A WALKER NEEDED AND HAS NO OTHER DME PT HAS A HCP ON FILE HE CONFIRMS IS ACCURATE PCP: [facility] AND RIGHTS DELIVERED DCP: HOME NO SERVICES VIA PRIVATE TRANSPORT
[2023-09-16] MEDS: Tamsulosin HCL 0.4 MG CAPSULE PO (20:48)
[2023-09-16] MEDS: Atorvastatin Calcium 80 MG TABLET PO (20:48)
[2023-09-16] MEDS: Losartan Potassium 25 MG TABLET PO (20:49)
[2023-09-16] MEDS: cefTRIAXone sodium 1 GM in 0.9 % Sodium Chloride 50 ML IV (20:56)
--- NOTE | 2023-09-17 | ECG_ITS ---
Test Reason : check qt Blood Pressure : / mmHG Vent. Rate : 068 BPM Atrial Rate : 068 BPM P-R Int : 182 ms QRS Dur : 118 ms QT Int : 442 ms P-R-T Axes : 053 -26 052 degrees QTc Int : 469 ms Sinus rhythm with frequent Premature ventricular complexes Non-specific intra-ventricular conduction delay Nonspecific ST and T wave abnormality Prolonged QT Abnormal ECG When compared with ECG of 14-SEP-2023 21:03, No significant changes seen Referred By: Jefry Álvarez Electronically Signed By:KATIA SONG
[2023-09-17 02:26] VITALS: BP 112/57; PULSE 53; RESP 18; TEMP 36.1; O2SAT 97
[2023-09-17] MEDS: Tiotropium Bromide 2.5 mcg 1 PUFF/2.5 MCG MIST.INHAL 2 PUFF INHALE (07:50)
[2023-09-17 07:53] VITALS: PULSE 64; RESP 20; O2SAT 93
[2023-09-17 08:00] VITALS: BP 127/69; PULSE 65; RESP 16; TEMP 36.4; O2SAT 94
--- NOTE | 2023-09-17 09:03 | HO.PM.IMPN ---
Subjective Subjective Date of Service: 09/17/23 Interval History: feeling stronger Physical Exam Vital Signs: Vital Signs: Last Vital Signs Temp 97.6 F 09/17/23 08:00 Pulse 65 09/17/23 08:00 Resp 16 09/17/23 08:00 BP 127/69 09/17/23 08:00 Pulse Ox 94 09/17/23 08:00 O2 Del Method Room Air 09/17/23 08:00 BMI result Body Mass Index 39.5 General: AO X 3, no acute distress Resp: CTA bilateral, no accessory muscles used CVS: S1,S2,RRR GI: soft, non tender, non distended Neuro: motor grossly intact, alert Psych: appropriate affect, appropriate insight Objective Data Active Medications Acetaminophen (Acetaminophen 325 Mg Tablet) 650 mg PO Q6H PRN PRN Reason: Pain, Mild (Pain Scale 1-3), fever or headache Last Admin: 09/15/23 18:12 Dose: 650 mg Documented By: DRU Allopurinol (Allopurinol 100 Mg Tablet) 100 mg PO DAILY [facility] Last Admin: 09/16/23 08:41 Dose: 100 mg Documented By: ADAM Apixaban (Apixaban 5 Mg Tablet) 5 mg PO BID [facility] Last Admin: 09/16/23 20:48 Dose: 5 mg Documented By: SARWAT Artificial Tears (Artificial Tears 15 Ml Drops) 2 drop EYE-BOTH Q4H PRN PRN Reason: Dry Eyes Atorvastatin Calcium (Atorvastatin Calcium 80 Mg Tablet) 80 mg PO BEDTIME [facility] Last Admin: 09/16/23 20:48 Dose: 80 mg Documented By: SARWAT Bisoprolol Fumarate (Bisoprolol Fumarate 5 Mg Tablet) 5 mg PO DAILY [facility] Last Admin: 09/16/23 08:41 Dose: 5 mg Documented By: ADAM Brimonidine Tartrate (Brimonidine Tartrate 0.2% Oph 5 Ml Bottle) 1 drop EYE-BOTH BID [facility] Last Admin: 09/16/23 20:49 Dose: 1 drop Documented By: SARWAT Calcium Carbonate (Calcium Carbonate 750 Mg Tab.Chew) 750 mg PO Q4H PRN PRN Reason: Heartburn Dronedarone (Dronedarone Hcl 400 Mg Tablet) 400 mg PO BID [facility] Last Admin: 09/16/23 20:48 Dose: 400 mg Documented By: SARWAT Finasteride (Finasteride 5 Mg Tablet) 5 mg PO DAILY [facility] Last Admin: 09/16/23 08:41 Dose: 5 mg Documented By: ADAM Ceftriaxone Sodium 1 gm/ (Sodium Chloride) 50 mls @ 100 mls/hr IV Q24H [facility] Last Infusion: 09/16/23 21:28 Dose: Infused Documented By: SARWAT Fluconazole (Diflucan) 200 mg in 100 mls @ 100 mls/hr IV Q24H [facility] Losartan Potassium (Losartan Potassium 25 Mg Tablet) 25 mg PO BEDTIME [facility]; Protocol Last Admin: 09/16/23 20:49 Dose: 25 mg Documented By: SARWAT Magnesium Hydroxide (Milk Of Magnesia 30 Ml Oral.Susp) 30 ml PO DAILY PRN PRN Reason: Constipation Melatonin (Melatonin 3 Mg Tablet) 6 mg PO BEDTIME PRN PRN Reason: Insomnia Montelukast Sodium (Montelukast Sodium 10 Mg Tablet) 10 mg PO DAILY@1200 [facility] Last Admin: 09/16/23 12:20 Dose: 10 mg Documented By: ADAM Patient Own Med( Mometasone- Formoterol [Dulera] 200-5 Mcg/Actuation Hfa Aerosol I 1 puff INHALE BID [facility] Last Admin: 09/17/23 07:50 Dose: 1 puff Documented By: KRISTIN Ondansetron HCl (Ondansetron Hcl 4 Mg/2 Ml Vial) 4 mg IVPUSH Q8H PRN PRN Reason: Nausea and Vomiting Sodium Chloride (0.9 % Sodium Chloride Flush 3 Ml Syringe) 3 ml IVFLUSH QSHIFT [facility] Last Admin: 09/16/23 20:53 Dose: 3 ml Documented By: SARWAT Tamsulosin HCl (Tamsulosin Hcl 0.4 Mg Capsule) 0.4 mg PO BEDTIME [facility] Last Admin: 09/16/23 20:48 Dose: 0.4 mg Documented By: SARWAT Tiotropium [place] (Tiotropium [place] 2.5 Mcg 1 Puff/2.5 Mcg Mist.Inhal) 2 puff INHALE RDAILY [facility] Last Admin: 09/17/23 07:50 Dose: 2 puff Documented By: KRISTIN Labs 09/15/23 09:35 07/20/24 05:45 Microbiology Microbiology Results: Microbiology 09/14/23 21:46 Blood Culture - Preliminary Blood - Venous No growth after 48 hours. 09/14/23 21:46 Blood Culture - Preliminary Blood - Venous No growth after 48 hours. 09/14/23 Unknown Urine Culture - Preliminary Urine clean catch - Clean Catch Midstream Yeast Assessment and Plan (1) Diarrhea: Status: Acute Plan 78M PMH pafib, bph, copd, hld, gout, htn, presented with weakness, urinary retnetnion Acute urinary retention complicated by urinary tract infection Continue Logan, ceftriaxone,cutlure growing yeast,, Urology appreciated - flomax, TOV prior to discharge added diflucan (qt 442) Diarrhea stool pcr negative, improving Paroxysmal atrial flutter Continue beta-miguel angel, Multaq, Eliquis BPH Finasteride Hyperlipidemia Continue statin Hypertension Continue losartan DVT prophylaxis on Eliquis Full code reason for continued hospitalization: ongoing iv antibiotics/antifungal, plan for tov tomorrow Quality Stroke Does the patient have a stroke diagnosis?: No VTE Prior VTE?: No VTE Risk Level:: Medical - moderate - high VTE Device Contraindication: Treatment Not Indicated VTE Drug Contraindication: N/A - Med Ordered
[2023-09-17] MEDS: Dronedarone HCl 400 MG TABLET PO ×2 (09:09→20:36)
[2023-09-17] MEDS: Milk of Magnesia 30 ML ORAL.SUSP PO (09:09)
[2023-09-17] MEDS: allopurinoL 100 MG TABLET PO (09:09)
[2023-09-17] MEDS: Bisoprolol Fumarate 5 MG TABLET PO (09:09)
[2023-09-17] MEDS: Apixaban 5 MG TABLET PO ×2 (09:09→20:36)
[2023-09-17] MEDS: Fluconazole in NaCl,Iso-Osm 200 MG/100 ML PIGGYBACK 100 MG IV (09:09)
[2023-09-17] MEDS: Finasteride 5 MG TABLET PO (09:09)
[2023-09-17] MEDS: Brimonidine Tartrate 0.2% Oph 5 ML BOTTLE 1 DROP EYE-BOTH ×2 (09:10→20:36)
[2023-09-17] MEDS: 0.9 % Sodium Chloride Flush 3 ML SYRINGE IVFLUSH ×3 (09:16→20:36)
[2023-09-17] MEDS: Montelukast Sodium 10 MG TABLET PO (11:27)
[2023-09-17 15:33] VITALS: BP 112/59; PULSE 61; RESP 18; TEMP 36.8; O2SAT 95
[2023-09-17 19:38] VITALS: BP 125/55; PULSE 67; RESP 18; TEMP 36.5; O2SAT 97
[2023-09-17 19:44] VITALS: PULSE 64; RESP 18; O2SAT 94
[2023-09-17] MEDS: Losartan Potassium 25 MG TABLET PO (20:36)
[2023-09-17] MEDS: Tamsulosin HCL 0.4 MG CAPSULE PO (20:36)
[2023-09-17] MEDS: Atorvastatin Calcium 80 MG TABLET PO (20:36)
[2023-09-17] MEDS: cefTRIAXone sodium 1 GM in 0.9 % Sodium Chloride 50 ML IV (22:22)
[2023-09-18] VITALS (9 sets, daily range): BP systolic 108–123; BP diastolic 53–68; PULSE 58–84; RESP 16–22; TEMP 36.4–37.1; O2SAT 96–98
[2023-09-18 07:16] LABS: Anion Gap 13 (12-20); Blood Urea Nitrogen 14 mg/dL (9-16); Calcium 8.5 mg/dL (8.4-10.2); Carbon Dioxide 19 mmol/L (22-29); Chloride 111 mmol/L (96-108); Creatinine Clr Calc Pharmacy 50.9; Estimated Glomerular Filt Rate 55; Glucose Fasting 86 mg/dL (60-99); Potassium 3.7 mmol/L (3.3-5.1); Sodium 139 mmol/L (135-145)
[2023-09-18 07:33] LABS: Hematocrit 31.2 % (42.0-52.0); Hemoglobin 10.3 g/dl (14.0-18.0); Mean Corpuscular Hemoglobin 33.1 pg (27.0-33.0); Mean Corpuscular Volume 100.3 fL (80.0-98.0); Mean Platelet Volume 11.9 fL (9.4-12.4); Platelet Count 137 X10*3/uL (160-400); Red Blood Count 3.11 X10*6/uL (4.60-5.80); Red Cell Distribution Width 13.9 % (11.0-16.0); White Blood Count 7.8 X10*3/uL (4.8-10.8)
[2023-09-18] MEDS: Tiotropium Bromide 2.5 mcg 1 PUFF/2.5 MCG MIST.INHAL 2 PUFF INHALE (07:39)
[2023-09-18] MEDS: Finasteride 5 MG TABLET PO (08:41)
[2023-09-18] MEDS: Bisoprolol Fumarate 5 MG TABLET PO (08:41)
[2023-09-18] MEDS: Dronedarone HCl 400 MG TABLET PO ×2 (08:41→20:39)
[2023-09-18] MEDS: Apixaban 5 MG TABLET PO ×2 (08:41→20:39)
[2023-09-18] MEDS: allopurinoL 100 MG TABLET PO (08:41)
[2023-09-18] MEDS: Artificial Tears 15 ML DROPS 2 DROP EYE-BOTH (08:41)
[2023-09-18] MEDS: Fluconazole in NaCl,Iso-Osm 200 MG/100 ML PIGGYBACK 100 MG IV (08:42)
[2023-09-18] MEDS: 0.9 % Sodium Chloride Flush 3 ML SYRINGE IVFLUSH ×3 (08:44→20:39)
--- NOTE | 2023-09-18 08:58 | HO.PM.IMPN ---
Subjective Subjective Date of Service: 09/18/23 Interval History: feeling stronger Physical Exam Vital Signs: Vital Signs: Last Vital Signs Temp 97.5 F 09/18/23 07:44 Pulse 70 09/18/23 07:44 Resp 22 H 09/18/23 07:44 BP 122/68 09/18/23 07:44 Pulse Ox 98 09/18/23 07:44 O2 Del Method Room Air 09/18/23 07:44 BMI result Body Mass Index 39.5 General: AO X 3, no acute distress Resp: CTA bilateral, no accessory muscles used CVS: S1,S2,RRR GI: soft, non tender, non distended Neuro: motor grossly intact, alert Psych: appropriate affect, appropriate insight Objective Data Active Medications Acetaminophen (Acetaminophen 325 Mg Tablet) 650 mg PO Q6H PRN PRN Reason: Pain, Mild (Pain Scale 1-3), fever or headache Last Admin: 09/15/23 18:12 Dose: 650 mg Documented By: DRU Allopurinol (Allopurinol 100 Mg Tablet) 100 mg PO DAILY [facility] Last Admin: 09/17/23 09:09 Dose: 100 mg Documented By: ADAM Apixaban (Apixaban 5 Mg Tablet) 5 mg PO BID [facility] Last Admin: 09/17/23 20:36 Dose: 5 mg Documented By: DOMI Artificial Tears (Artificial Tears 15 Ml Drops) 2 drop EYE-BOTH Q4H PRN PRN Reason: Dry Eyes Atorvastatin Calcium (Atorvastatin Calcium 80 Mg Tablet) 80 mg PO BEDTIME [facility] Last Admin: 09/17/23 20:36 Dose: 80 mg Documented By: DOMI Bisoprolol Fumarate (Bisoprolol Fumarate 5 Mg Tablet) 5 mg PO DAILY [facility] Last Admin: 09/17/23 09:09 Dose: 5 mg Documented By: ADAM Brimonidine Tartrate (Brimonidine Tartrate 0.2% Oph 5 Ml Bottle) 1 drop EYE-BOTH BID [facility] Last Admin: 09/17/23 20:36 Dose: 1 drop Documented By: DOMI Calcium Carbonate (Calcium Carbonate 750 Mg Tab.Chew) 750 mg PO Q4H PRN PRN Reason: Heartburn Dronedarone (Dronedarone Hcl 400 Mg Tablet) 400 mg PO BID [facility] Last Admin: 09/17/23 20:36 Dose: 400 mg Documented By: DOMI Finasteride (Finasteride 5 Mg Tablet) 5 mg PO DAILY [facility] Last Admin: 09/17/23 09:09 Dose: 5 mg Documented By: ADAM Ceftriaxone Sodium 1 gm/ (Sodium Chloride) 50 mls @ 100 mls/hr IV Q24H [facility] Last Infusion: 09/17/23 22:52 Dose: Infused Documented By: DOMI Fluconazole (Diflucan) 200 mg in 100 mls @ 100 mls/hr IV Q24H [facility] Last Infusion: 09/17/23 10:40 Dose: Infused Documented By: ADAM Losartan Potassium (Losartan Potassium 25 Mg Tablet) 25 mg PO BEDTIME [facility]; Protocol Last Admin: 09/17/23 20:36 Dose: 25 mg Documented By: DOMI Magnesium Hydroxide (Milk Of Magnesia 30 Ml Oral.Susp) 30 ml PO DAILY PRN PRN Reason: Constipation Last Admin: 09/17/23 09:09 Dose: 30 ml Documented By: ADAM Melatonin (Melatonin 3 Mg Tablet) 6 mg PO BEDTIME PRN PRN Reason: Insomnia Montelukast Sodium (Montelukast Sodium 10 Mg Tablet) 10 mg PO DAILY@1200 [facility] Last Admin: 09/17/23 11:27 Dose: 10 mg Documented By: ADAM Patient Own Med( Mometasone- Formoterol [Dulera] 200-5 Mcg/Actuation Hfa Aerosol I 1 puff INHALE BID [facility] Last Admin: 09/18/23 07:39 Dose: 1 puff Documented By: JOHANNE Ondansetron HCl (Ondansetron Hcl 4 Mg/2 Ml Vial) 4 mg IVPUSH Q8H PRN PRN Reason: Nausea and Vomiting Sodium Chloride (0.9 % Sodium Chloride Flush 3 Ml Syringe) 3 ml IVFLUSH QSHIFT [facility] Last Admin: 09/17/23 20:36 Dose: 3 ml Documented By: DOMI Tamsulosin HCl (Tamsulosin Hcl 0.4 Mg Capsule) 0.4 mg PO BEDTIME [facility] Last Admin: 09/17/23 20:36 Dose: 0.4 mg Documented By: DOMI Tiotropium [place] (Tiotropium [place] 2.5 Mcg 1 Puff/2.5 Mcg Mist.Inhal) 2 puff INHALE RDAILY [facility] Last Admin: 09/18/23 07:39 Dose: 2 puff Documented By: JOHANNE Labs 09/18/23 05:02 09/18/23 05:02 Labs: Laboratory Results - last 24 hr 09/18/23 05:02 MCV 100.3 H MCH 33.1 H MCHC 33.0 RDW 13.9 Plt Count 137 L MPV 11.9 Absolute Nucleated RBC 0.000 Nucleated RBC % (auto) 0.0 Anion Gap 13 Estim Creat Clear Calc 50.9 Estimated GFR 55 Fasting Glucose 86 Calcium 8.5 D Microbiology Microbiology Results: Microbiology 09/14/23 Unknown Urine Culture - Final Urine clean catch - Clean Catch Midstream Christa albicans Assessment and Plan (1) Diarrhea: Status: Acute Plan 78M PMH pafib, bph, copd, hld, gout, htn, presented with weakness, urinary retnetnion Acute urinary retention complicated by urinary tract infection Continue Logan, ceftriaxone,cutlure growing yeast,, Urology appreciated - flomax, TOV prior to discharge (will attempt today) diflucan (qtc 442) Diarrhea stool pcr negative, improved Paroxysmal atrial flutter Continue beta-miguel angel, Multaq, Eliquis BPH Finasteride Hyperlipidemia Continue statin Hypertension Continue losartan DVT prophylaxis on Eliquis Full code reason for continued hospitalization: tov Quality Stroke Does the patient have a stroke diagnosis?: No VTE Prior VTE?: No VTE Risk Level:: Medical - moderate - high VTE Device Contraindication: Treatment Not Indicated VTE Drug Contraindication: N/A - Med Ordered
[2023-09-18] MEDS: Brimonidine Tartrate 0.2% Oph 5 ML BOTTLE 1 DROP EYE-BOTH ×2 (09:20→20:36)
[2023-09-18] MEDS: Milk of Magnesia 30 ML ORAL.SUSP 60 ML PO (11:13)
[2023-09-18] MEDS: Montelukast Sodium 10 MG TABLET PO (11:13)
--- NOTE | 2023-09-18 16:01 | PC.NURSE ---
Addendum entered by Mayra Ferrer RN 09/18/23 16:04: Encouraged PO intake and ambulation. Pt able to ambulate in hallway multiple times this shift with 1A and walker. Original Note: F/C removed at 0900. Pt able to void 75ml at 14:31, PVR scan 135ml. MD Álvarez made aware, KUB ordered. Pt also endorsing constipation, 60ml MOM given this morning, pending results.
[2023-09-18] MEDS: Calcium Carbonate 750 MG TAB.CHEW PO (17:10)
[2023-09-18] MEDS: Losartan Potassium 25 MG TABLET PO (20:36)
[2023-09-18] MEDS: Atorvastatin Calcium 80 MG TABLET PO (20:39)
[2023-09-18] MEDS: Tamsulosin HCL 0.4 MG CAPSULE PO (20:39)
[2023-09-18] MEDS: cefTRIAXone sodium 1 GM in 0.9 % Sodium Chloride 50 ML IV (21:03)
[2023-09-19 04:00] VITALS: BP 124/59; PULSE 54; RESP 18; TEMP 36.4; O2SAT 97
--- NOTE | 2023-09-19 06:18 | PC.NURSE ---
Patient voiding small amounts of odorless cyu overnight s/p loving removal during the day on 09/17. Bladder scans and post-voids performed, pt voiding greater amounts than retaining. Please see worklist bladder scan task and I+O's for full details. Pt denies dysuria, pelvic pressure/discomfort/pain. Covering Dr. Paco Alston notified.
[2023-09-19 07:56] VITALS: BP 117/58; PULSE 55; RESP 12; TEMP 36.6; O2SAT 98
[2023-09-19] MEDS: Apixaban 5 MG TABLET PO (08:12)
[2023-09-19] MEDS: Bisoprolol Fumarate 5 MG TABLET PO (08:12)
[2023-09-19] MEDS: allopurinoL 100 MG TABLET PO (08:12)
[2023-09-19] MEDS: Dronedarone HCl 400 MG TABLET PO (08:12)
[2023-09-19] MEDS: 0.9 % Sodium Chloride Flush 3 ML SYRINGE IVFLUSH (08:13)
[2023-09-19] MEDS: Artificial Tears 15 ML DROPS 2 DROP EYE-BOTH (08:13)
[2023-09-19] MEDS: Brimonidine Tartrate 0.2% Oph 5 ML BOTTLE 1 DROP EYE-BOTH (08:13)
[2023-09-19] MEDS: Fluconazole in NaCl,Iso-Osm 200 MG/100 ML PIGGYBACK 100 MG IV (08:14)
[2023-09-19] MEDS: Finasteride 5 MG TABLET PO (08:18)
[2023-09-19] MEDS: Tiotropium Bromide 2.5 mcg 1 PUFF/2.5 MCG MIST.INHAL 2 PUFF INHALE (08:35)
[2023-09-19 08:37] VITALS: PULSE 70; RESP 18; O2SAT 97
--- NOTE | 2023-09-19 08:43 | P.DS_ITS ---
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 Patient was recently admitted and discharged on 09/06 with hydronephrosis in the setting of obstructing right kidney stone. Patient underwent right retrograde stent placement on 09/04 by urology. Patient states that since being discharged he was having increased urinary urgency and frequency until the day of presentation. On the day of presentation, patient with inability to urinate. Also was having lower abdominal discomfort. No fever, chills, nausea, vomiting, flank pain. Also has been having loose stools about 3-4 episodes, nonbloody for the last 2 days. Patient was on antibiotics last week for possible pneumonia. No chest discomfort, palpitations, shortness of breath. In the emergency department, Logan catheter was inserted and mood and 400 cc urine obtained. UA with 3+ leukocyte esterase, positive nitrites and more than 50 WBC. hospital course: Patient was admitted for acute urinary retention complicated by urinary tract infection. Logan was placed and patient was seen by Urology recommended Flomax and voiding trial prior to discharge which was done successfully. On discharge patient will continue Flomax and follow up with Urology. He was treated with ceftriaxone, urine culture ended up growing yeast and Diflucan was added. On discharge will complete 3 more days of Ceftin and 5 more days of Diflucan. For diarrhea patient underwent stool PCR which was negative, stool was too formed to test for C diff. diarrhea resolved. For BPH was continued on finasteride and Flomax added. For hyperlipidemia continue statin. For hypertension continued on losartan. Patient is feeling better will be discharged home. Time Attestation Discharge Coordination Time (in mins): 33 Quality: Safe Use of Opioids Does Pt have an Active Cancer Diagnosis on the Problem List?: No Quality: Stroke Does the patient have a stroke diagnosis?: No Physical Exam Vital Signs: Vital Signs: Last Vital Signs Temp 97.9 F 09/19/23 07:56 Pulse 70 09/19/23 08:37 Resp 18 09/19/23 08:37 BP 117/58 L 09/19/23 07:56 Pulse Ox 98 09/19/23 07:56 O2 Del Method Room Air 09/19/23 07:56 BMI result Body Mass Index 39.5 General: AO X 3, no acute distress Resp: CTA bilateral, no accessory muscles used CVS: S1,S2,RRR GI: soft, non tender, non distended Neuro: motor grossly intact, alert Psych: appropriate affect, appropriate insight DS: Data Data Completed and Pending Completed studies during hospitalization [Text1]: Procedures Dilation of Right Ureter with Intraluminal Device, Via Natural or Artificial Opening Endoscopic (09/04/23) Fluoroscopy of Right Kidney, Ureter and Bladder (09/04/23) Labs on day of discharge: Preliminary micro results at discharge 09/14/23 21:46 Blood Culture - Preliminary Blood - Venous No growth after 48 hours. 09/14/23 21:46 Blood Culture - Preliminary Blood - Venous No growth after 48 hours. Discharge Plan Discharge Anticipated Discharge Date/Time: 09/19/23 08:40 Patient Disposition: Home, Self-Care Discharge Diagnosis: uti Referrals: Moris Yu MD [Primary Care Provider] - 1 Week Discharge Medications: New tamsulosin 0.4 mg Capsule 0.4 mg PO BEDTIME Qty: 90 0RF cefuroxime axetil 500 mg tablet 500 mg PO BID Qty: 6 0RF fluconazole [Diflucan] 200 mg tablet 200 mg PO DAILY Qty: 5 0RF Continued losartan 25 mg tablet 25 mg PO BEDTIME Qty: 90 3RF Spiriva Respimat 2.5 mcg/actuation mist 2 inh inhalation DAILY Qty: 12 3RF bisoprolol fumarate 5 mg tablet 5 mg PO DAILY Qty: 90 3RF Dulera 200-5 mcg/actuation Hfa Aerosol Inhaler 1 puff INHALATION BID atorvastatin 80 mg tablet 80 mg PO BEDTIME Eliquis 5 mg tablet 5 mg PO BID Qty: 60 0RF brimonidine [Alphagan P] 0.1 % drops 1 drp ophthalmic (eye) BID Multaq 400 mg tablet 400 mg PO BID allopurinol 100 mg tablet 100 mg PO DAILY montelukast 10 mg tablet 10 mg PO DAILY@1200 potassium citrate 10 mEq (1,080 mg) tablet extended release 10 meq PO BID finasteride 5 mg tablet 5 mg PO DAILY Discharge Orders: Discharge Order (Routine); Ordered 09/19/23 Ordered By: Jefry Álvarez Diet: Advance to usual diet Activity on Discharge: As tolerated Stand Alone Forms: Patient Portal Discharge page Print Language: Vincentian Care Plan Goals: avoid urinary retention Health Concerns: uti, urinary retentiona Plan of Treatment: monitor urine output, started flomax, complete antibiotic and antifungal courses, follow up with urology Assessment: see above
--- NOTE | 2023-09-19 09:31 | MHC.CM.PN ---
DP: PT HAS BEEN MEDICALLY CLEARED FOR DC HOME, NO SERVICES. [facility] WILL TRANSPORT
== END 2023-09-19 11:04 | disposition home or self-care (01) | DRG 728 ==
LOC: HO.ED 23:12 → HO.EDOVER 09-15 01:43 → HO.S3 09-15 08:12
PROVIDERS: Student in an Organized Health Care Education/Training Program; Admitting Provider Student in an Organized Health Care Education/Training Program; Emergency Provider Emergency Medicine Emergency Medical Services; PCP Internal Medicine; Visit Provider Internal Medicine
DX: B37.49 Other urogenital candidiasis (principal); I48.92 Unspecified atrial flutter; I25.10 Atherosclerotic heart disease of native coronary artery without angina pectoris; E86.0 Dehydration; N40.1 Benign prostatic hyperplasia with lower urinary tract symptoms; N20.0 Calculus of kidney; R33.8 Other retention of urine; R19.7 Diarrhea, unspecified; E78.2 Mixed hyperlipidemia; J45.20 Mild intermittent asthma, uncomplicated; Z95.2 Presence of prosthetic heart valve; Z88.0 Allergy status to penicillin; Z91.041 Radiographic dye allergy status; Z79.01 Long term (current) use of anticoagulants; Z79.899 Other long term (current) drug therapy
CPT/HCPCS: 36415; 74018; 74176; 80048; 80076; 81001; 83605; 85025; 85027; 87040; 87086; 87088; 87507; 93005; 94640; 99285; C1758; J0696; J1450; J2359

== ENCOUNTER → 2023-09-14 20:26 | Outpatient (BNV) | payer MEDICARE, OTHER, SELFPAY | PROVIDERS: Emergency Provider Emergency Medicine Emergency Medical Services; PCP Internal Medicine; Visit Provider Student in an Organized Health Care Education/Training Program | DX: R19.7 Diarrhea, unspecified (principal) | CPT/HCPCS: 99222; 99232; 99239; 99499 ==

== ENCOUNTER → 2023-09-14 20:36 | Outpatient (BNV) | payer MEDICARE, OTHER, SELFPAY | PROVIDERS: Admitting Provider Student in an Organized Health Care Education/Training Program; Emergency Provider Emergency Medicine Emergency Medical Services; PCP Internal Medicine; Visit Provider Internal Medicine Cardiovascular Disease | DX: R00.1 Bradycardia, unspecified (principal); R94.31 Abnormal electrocardiogram [ECG] [EKG] | CPT/HCPCS: 93010 ==

== ENCOUNTER 2023-09-15 | Outpatient (BNV) | payer MEDICARE, OTHER, SELFPAY | END 2023-09-17 08:45 | PROVIDERS: Admitting Provider Student in an Organized Health Care Education/Training Program; Emergency Provider Emergency Medicine Emergency Medical Services; PCP Internal Medicine; Visit Provider Internal Medicine | DX: R94.31 Abnormal electrocardiogram [ECG] [EKG] (principal); I49.3 Ventricular premature depolarization | CPT/HCPCS: 93010 ==

== ENCOUNTER → 2023-09-15 | Outpatient (BNV) | payer MEDICARE, OTHER, SELFPAY | PROVIDERS: Admitting Provider Student in an Organized Health Care Education/Training Program; Emergency Provider Emergency Medicine Emergency Medical Services; PCP Internal Medicine; Visit Provider Urology | DX: R33.9 Retention of urine, unspecified (principal); N18.9 Chronic kidney disease, unspecified; N20.0 Calculus of kidney; N40.1 Benign prostatic hyperplasia with lower urinary tract symptoms; R19.7 Diarrhea, unspecified; Z96.0 Presence of urogenital implants; N20.1 Calculus of ureter | CPT/HCPCS: 99222 ==

== ENCOUNTER 2023-09-28 09:50 | Outpatient (AMB) | payer MEDICARE, OTHER, SELFPAY ==
--- NOTE | 2023-09-28 09:55 | AM.OFFVISNUR ---
Intake Visit Reasons: EKG Allergies gadobenic acid [Multihance] Allergy (Severe, Verified 09/14/23 19:43) Rash azithromycin [From ZITHROMAX Z-JOYCE] Allergy (Intermediate, Verified 09/14/23 19:43) HIVES Iodinated Contrast Media [IV CONTRAST] Allergy (Intermediate, Verified 09/14/23 19:43) HIVES Penicillins Allergy (Mild, Verified 09/14/23 19:43) RASH Nursing Note pt is here for ekg pt is on dronedarone 400 mg PO BID ekg reviewed by Dr MANZO Office Procedures EKG [id number], Complete
== END 2023-09-28 10:10 | disposition home or self-care (01) ==
PROVIDERS: PCP Internal Medicine; Visit Provider Internal Medicine Cardiovascular Disease
DX: R94.31 Abnormal electrocardiogram [ECG] [EKG] (principal); I49.3 Ventricular premature depolarization
CPT/HCPCS: 93010

== ENCOUNTER → 2023-09-28 09:50 | Outpatient (BNVA) | payer MEDICARE, OTHER, SELFPAY | PROVIDERS: PCP Internal Medicine; Visit Provider Internal Medicine Cardiovascular Disease | DX: I49.3 Ventricular premature depolarization (principal); R94.31 Abnormal electrocardiogram [ECG] [EKG] | CPT/HCPCS: 93005 ==

== ENCOUNTER 2023-10-19 15:09 | Outpatient (AMB) | payer MEDICARE, OTHER, SELFPAY ==
--- NOTE | 2023-10-19 15:23 | A.OFFVIS_ITS ---
Intake Visit Reasons: discuss procedure Intake Note: Patient is present for DISCUSS PROCEDURE Urology Medication:TAMSULOSIN, FINESTERIDE Antibiotic Allergy:AZITHROMYCIN Blood Thinner:[facility] Required: No Allergies gadobenic acid [Multihance] Allergy (Severe, Verified 10/31/23 06:48) Rash azithromycin [From ZITHROMAX Z-JOYCE] Allergy (Intermediate, Verified 10/31/23 06:48) HIVES Iodinated Contrast Media [IV CONTRAST] Allergy (Intermediate, Verified 10/31/23 06:48) HIVES Penicillins Allergy (Mild, Verified 10/31/23 06:48) RASH HPI Comments Details: 78-year-old male h/o kidney stones. s/p right stent placed on September 04 for a obstructing ureteral stone. CTAP - right ureteral stent in good position, B/L renal stones, right ureteral stone along stent. discussed plan for Cystoscopy, right ureteroscopy, possible laser lithotripsy, ureteral stent exchange. Risks discussed included but not limited to, possible need to repeat procedure if stone is not completely fragmented, Irritative voiding symptoms, bladder spasms, urgency, blood in urine. [facility] Medical History Pulmonary nodules Chronic restrictive lung disease Chronic renal disease Nonsustained ventricular tachycardia PVCs (premature ventricular contractions) CAD (coronary artery disease) Dyspnea Chronic allergic rhinitis Asthma Sarcoidosis Surgical History H/O hernia repair Stented coronary artery Family History Other Asthma Social History Household Members: Spouse Housing: House Do you presently have visiting nurse or other home services: No Alcohol intake: never Patient Tobacco Use Status: Never used Tobacco Tobacco use type: Cigar e-Cigarette/Vaping Use: Never Used Second Hand Smoke Exposure: No Use of substances other than those prescribed or required for medical reasons: No Are you DNR?: No Advance Directives: No Advance Directives Information Provided: Yes Advance Directives Date on File: 09/14/23 Recently lost weight without trying: No service: No Review of Systems Const All systems reviewed & are unremarkable except as noted in HPI and below Reports no additional complaints Eyes Reports no additional complaints ENT Reports no additional complaints Card Reports no additional complaints Resp Reports no additional complaints GI Reports no additional complaints Reports as per HPI Musc Reports no additional complaints Skin/Breast Reports system reviewed and no additional complaints, except as documented Neuro Reports no additional complaints Psych Reports no additional complaints Endo Reports no additional complaints Josias/Lymph Reports no additional complaints Aller/Immun Reports no additional complaints Assessment & Plan Assessment & Plan (1) BPH loc w urin obs/LUTS: Code(s): N40.1 - Benign prostatic hyperplasia with lower urinary tract symptoms Category: Medical (2) Ureteral calculus, right: Code(s): N20.1 - Calculus of ureter Category: Medical (3) Ureteral stent present: Code(s): Z96.0 - Presence of urogenital implants Category: Medical (4) Bilateral kidney stones: Code(s): N20.0 - Calculus of kidney Category: Medical Plan Cystoscopy, right ureteroscopy, possible laser lithotripsy, ureteral stent exchange. Patient Instructions: The patient had an opportunity to ask questions regarding treatment plan. The patient expressed understanding and agreement with the above treatment plan. The patient is aware they should contact our office by phone for worsening of their current condition or the appearance of new symptoms. Compliance is encouraged with any medications and followup testing that is ordered. It is a privilege to be allowed the opportunity to participate in the urologic care of your patient. If you have any questions or concerns regarding treatment for the above conditions please do not hesitate to contact me. The office telephone contact is [phone]. This note is constructed in part using voice recognition software. While every effort has been made to ensure accuracy physician practice market manager errors may have been included. Yours sincerely, Kuldip Ibarra MD Coding Level of Care Code Est Pt Level 4 (93360) Diagnoses BPH loc w urin obs/LUTS N40.1 Ureteral calculus, right N20.1 Ureteral stent present Z96.0 Bilateral kidney stones N20.0
== END 2023-10-19 16:04 | disposition home or self-care (01) ==
PROVIDERS: PCP Internal Medicine; Visit Provider Urology
DX: N40.1 Benign prostatic hyperplasia with lower urinary tract symptoms (principal); N20.1 Calculus of ureter; Z96.0 Presence of urogenital implants; N20.0 Calculus of kidney
CPT/HCPCS: 99214

== ENCOUNTER → 2023-10-19 15:09 | Outpatient (BNVA) | payer MEDICARE, OTHER, SELFPAY | PROVIDERS: PCP Internal Medicine; Visit Provider Urology | DX: N40.1 Benign prostatic hyperplasia with lower urinary tract symptoms (principal); N13.8 Other obstructive and reflux uropathy; N20.0 Calculus of kidney; N20.1 Calculus of ureter; Z96.0 Presence of urogenital implants | CPT/HCPCS: 99212 ==

== ENCOUNTER 2023-10-24 13:15 | Outpatient (AMB) | payer MEDICARE, OTHER, SELFPAY ==
[2023-10-24 13:30] VITALS: BP 128/60; PULSE 62; O2SAT 98; BMI 29.8
--- NOTE | 2023-10-24 13:30 | A.OFFVIS_ITS ---
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 Overall he is doing very well. He continues to be a maximum respiratory therapy. The response better with the nebulized therapy. He had a good summer without any exacerbations of the obstructive airway disease. We talked about ways to deescalate his respiratory therapy. He still having some dyspnea on exertion, mild in severity usually when he is going up hills. Usually gets better with rest. His major issue right now is weight gain in addition to difficulty sleeping. He does not have any significant snoring. However, we did talk about considering a sleep study. His Wallace score is elevated 10/24. He says that he has fragmented sleep and will see if we can improve that with a sleep aid. Otherwise we can consider a sleep study in the future. 03/21/2023 the patient is here for a pulmonary follow-up visit. The patient is having issues with his atrial fibrillation. He is monitored closely by Cardiology. He was placed on anticoagulation but had to stop it because of hematuria. Therefore now he is off all anticoagulation. 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 The patient did have a sleep study back in demonstrating moderate sleep apnea. He also has significant hypoxia. We did review the results together. The patient did have a hard time with CPAP. He is wondering about other alternatives. The patient continues to have daytime drowsiness. His Wallace score is elevated 11/24. He has been sleeping about 12 hours a day and still feels tired. He also complains of shortness breath [id number] with activity. He does have some degree of myopathy. In view of the cardiac arrhythmia in the significant sleep apnea the patient needs to have an in-lab sleep study to further address the question of the sleep apnea and hopefully to get it titrated in the hospital if he does qualify for split study. The patient now has atrial fibrillation off anticoagulation I am concerned for the possibility of stroke and therefore I would like to have him have this study as soon as possible. I will request an urgent in-lab sleep study at this time. From a respiratory status continues use his respiratory inhalers. Has not had to use his rescue inhaler at this time. 05/04/2023 the patient is here for pulmonary follow-up visit. Been doing about the same. Still very drowsy sleeps around 12 hours a day. His Wallace score is elevated 16/24. He did undergo an in-lab sleep study. It was not significant but likely nondiagnostic since he had a hard time sleeping. The patient does have a history asthma COPD overlap syndrome. Will go ahead and check his overnight oximetry. He continues to follow closely with Cardiology regarding his cardiac arrhythmia. In the meantime from the sarcoid standpoint the patient has had pulmonary nodules and has scheduled CT scan for May 2023. If the CT scans abnormal let him know. Otherwise will follow-up in the next visit. From a respiratory status seems responding well to the current respiratory regimen so therefore will not make any changes at this time. 10/24/2023 the patient is here for a pulmonary follow-up visit. The patient overall doing better. He was hospitalized initially with a dental abscess that resulted in compromise upper airway altered mental status. Subsequently after that he ended up with pneumonia. He was treated with antibiotics and did clear. He recently did have a CT scan of the chest which I personally reviewed demonstrating no evidence of any acute disease. He does have the chronic interstitial changes pulmonary nodules secondary to his sarcoid history but nothing acute. In addition to that the patient was found to have a large kidney stone. He did have a ureter stent placement. Now he needs to undergo further urological therapies for this stone. He will require anesthesia and surgical procedure. At this point he is doing well from a respiratory status. He did have 1 episode where he woke up with shortness of breath and wheezing. Although it did clear after using his nebulizer. Currently his respiratory exam is reassuring. We did review his blood work he did have a drop in his hemoglobin. he also has been dizzy. Therefore, will go ahead and request additional blood work to make sure that he is not having any worsening anemia. He will also follow-up cardiology. Needs a preoperative evaluation. From a pulmonary standpoint the patient is doing very well and he may be able to proceed with anesthesia and surgery at this time. He does have some [id number] risk for perioperative pulmonary complications which includes; atelectasis, hypoxia, pneumonia and prolonged mechanical ventilation. He is medically optimized from pulmonary standpoint may and may be able to proceed. [facility] Medical History Pulmonary nodules Chronic restrictive lung disease Chronic renal disease Nonsustained ventricular tachycardia PVCs (premature ventricular contractions) CAD (coronary artery disease) Dyspnea Chronic allergic rhinitis Asthma Sarcoidosis Surgical History H/O hernia repair Stented coronary artery Family History Other Asthma Social History Household Members: Spouse Housing: House Do you presently have visiting nurse or other home services: No Alcohol intake: never Patient Tobacco Use Status: Never used Tobacco Tobacco use type: Cigar e-Cigarette/Vaping Use: Never Used Second Hand Smoke Exposure: No Advance Directives Date on File: 09/14/23 service: No Review of Systems Const Denies chills, Reports daytime sleepiness, Reports difficulty sleeping, Reports fatigue, Denies fever(s), Denies frequent falls, Denies weakness, Denies weight gain and Denies weight loss Eyes Denies change in vision ENT Denies change in voice and Denies dizziness Card Denies chest pain, Denies leg edema, Denies lightheadedness, Denies palpitations, Denies dyspnea, Reports dyspnea on exertion, Denies orthopnea and Denies other (loss of consciousness) Resp Reports cough, Denies dyspnea, Reports dyspnea on exertion and Reports wheezing GI Denies hematochezia and Denies change in stool character Musc Denies abnormal gait, Denies muscle weakness, Denies numbness, Denies radiating pain into limb and Denies tingling Neuro Denies abnormal gait, Denies dizziness, Denies frequent falls, Denies numbness, Denies tingling and Denies weakness Endo Reports fatigue and Denies palpitations Aller/Immun Reports wheezing Physical Exam Vital Signs: Last Vital Signs Pulse 62 10/24/23 13:30 BP 128/60 10/24/23 13:30 Pulse Ox 98 10/24/23 13:30 Oxygen Delivery Method Room Air 10/24/23 13:30 BMI result Body Mass Index 29.8 Last Vital Signs Temp 98.0 F 08/24/23 12:00 Pulse 95 08/24/23 12:06 Resp 20 08/24/23 12:06 BP 102/59 L 08/24/23 12:00 Pulse Ox 98 08/24/23 12:00 O2 Del Method Room Air 08/24/23 12:00 O2 Flow Rate 2 08/24/23 04:00 Oxygen Flow Rate 2 08/21/23 02:16 BMI result Body Mass Index 34.2 Const General: comfortable HEENT Head: Yes normocephalic Eyes Conjunctivae: conjunctival abnormal bilateral pallor Neck Neck: Yes trachea midline and Yes supple Chest Chest palpation & inspection: normal inspection of the chest Resp Effort & Inspection: normal respiratory effort Auscultation: no crackles, no rales, no rhonchi, no wheezes and diminished lung sounds Cardio Rate: regular rate Heart sounds: S1 normal heart sound present and S2 normal heart sound present GI Inspection: No distended Palpation (GI): Soft to palpation and nontender Auscultation: normal bowel sounds Skin Other: right side face swelling, no erythema General skin exam: no rashes or lesions noted Neuro Other: grossly nonfocal Extrem General: Yes no clubbing, cyanosis or edema Psych Appearance: grossly normal Results Reviewed Results Reviewed: personally reviewed the CT chest 09/2023-no acute changes, ILD/pulmonary nodules are stable Assessment & Plan Assessment & Plan (1) Pre-op chest exam: Code(s): Z01.811 - Encounter for preprocedural respiratory examination Category: Medical (2) Asthma-COPD overlap syndrome: Code(s): J44.9 - Chronic obstructive pulmonary disease, unspecified Category: Medical (3) Chronic restrictive lung disease: Code(s): J98.4 - Other disorders of lung Category: Medical (4) Chronic allergic rhinitis: Code(s): J30.9 - Allergic rhinitis, unspecified Category: Medical (5) Sarcoidosis: Code(s): D86.9 - Sarcoidosis, unspecified Category: Medical (6) Pulmonary nodules: Code(s): R91.8 - Other nonspecific abnormal finding of lung field Category: Medical (7) Atrial flutter: Code(s): I48.92 - Unspecified atrial flutter Category: Medical Qualifiers: Atrial flutter type: unspecified Qualified Code(s): I48.92 - Unspecified atrial flutter (8) Asthma: Code(s): J45.909 - Unspecified asthma, uncomplicated Category: Medical Qualifiers: Asthma complication type: uncomplicated Asthma persistence: persistent Asthma severity: moderate Qualified Code(s): J45.40 - Moderate persistent asthma, uncomplicated Plan May proceed with anesthesia and procedure at this time Continue Dulera twice a day Continue Spiriva daily Continue Singulair daily Bloodwork Follow-up 6 months Orders: Orders Basic Metabolic Panel Today J44.9 - Chronic obstructive pulmonary disease, unspecified Erythrocyte Sedimentation Rate Today J44.9 - Chronic obstructive pulmonary disease, unspecified Complete Blood Count Auto Diff Today J44.9 - Chronic obstructive pulmonary disease, unspecified Liver Panel Today J44.9 - Chronic obstructive pulmonary disease, unspecified Coding Level of Care Code Est Pt Level 4 (76395) Complex EM visit Add On G2211 Diagnoses Pre-op chest exam Z01.811 Asthma-COPD overlap syndrome J44.9 Chronic restrictive lung disease J98.4 Chronic allergic rhinitis J30.9 Sarcoidosis D86.9 Pulmonary nodules R91.8 Atrial flutter, unspecified type I48.92 Atrial flutter type: unspecified Moderate persistent asthma without complication J45.40 Asthma complication type: uncomplicated Asthma persistence: persistent Asthma severity: moderate Time Spent (min) 18
== END 2023-10-24 13:53 | disposition home or self-care (01) ==
PROVIDERS: PCP Internal Medicine; Visit Provider Hospitalist
DX: Z01.811 Encounter for preprocedural respiratory examination (principal); J44.9 Chronic obstructive pulmonary disease, unspecified; J98.4 Other disorders of lung; J30.9 Allergic rhinitis, unspecified; D86.9 Sarcoidosis, unspecified; R91.8 Other nonspecific abnormal finding of lung field; I48.92 Unspecified atrial flutter; J45.40 Moderate persistent asthma, uncomplicated
CPT/HCPCS: 99214; G2211

== ENCOUNTER 2023-10-24 13:15 | Outpatient (REF) | payer MEDICARE, OTHER, SELFPAY ==
[2023-10-24 14:45] LABS: MANUAL DIFF FLAG NO
[2023-10-24 15:12] LABS: Basophils Percent Auto 0.6 % (0-2); Eosinophils Absolute Auto 0.2 X10*3/uL (0.0-0.4); Eosinophils Percent Auto 3.9 % (0-4); Hematocrit 35.1 % (42.0-52.0); Hemoglobin 11.8 g/dl (14.0-18.0); Imm Gran Abs Auto 0.04 X10*3/uL (0.00-0.03); Imm Gran Pct Auto 0.8 % (0.0-0.4); Mean Corpuscular HGB Conc 33.6 g/dl (31.0-36.0); Mean Corpuscular Hemoglobin 33.6 pg (27.0-33.0); Mean Platelet Volume 10.8 fL (9.4-12.4); Monocytes Absolute Auto 0.5 X10*3/uL (0.1-1.2); Neutrophils Absolute Auto 3.5 x10*3/uL (2.0-8.3); Neutrophils Percent Auto 65.7 % (45-73); Platelet Count 155 X10*3/uL (160-400); Red Blood Count 3.51 X10*6/uL (4.60-5.80); Red Cell Distribution Width 13.9 % (11.0-16.0); White Blood Count 5.3 X10*3/uL (4.8-10.8)
[2023-10-24 15:30] LABS: Alanine Aminotransferase 17 U/L (0-40); Albumin Level 3.4 g/dL (3.5-5.0); Alkaline Phosphatase 75 U/L (39-117); Anion Gap 10 (12-20); Aspartate Amino Transferase 18 U/L (5-37); Bilirubin Direct 0.4 mg/dL (0.0-0.5); Bilirubin Total 0.9 mg/dL (0.0-1.0); Blood Urea Nitrogen 20 mg/dL (9-16); Calcium 9.6 mg/dL (8.4-10.2); Carbon Dioxide 25 mmol/L (22-29); Chloride 110 mmol/L (96-108); Estimated Glomerular Filt Rate 33; Glucose Random 107 mg/dL (60-115); Potassium 4.3 mmol/L (3.3-5.1); Sodium 141 mmol/L (135-145); Total Protein 6.8 g/dL (6.5-8.0)
[2023-10-24 15:51] LABS: Erythrocyte Sedimentation Rate 23 MM/HR (0-15)
== END 2023-10-24 13:16 | disposition home or self-care (01) ==
LOC: HO.LAB 13:15
PROVIDERS: PCP Internal Medicine; Visit Provider Hospitalist
DX: Z01.811 Encounter for preprocedural respiratory examination (principal); J44.9 Chronic obstructive pulmonary disease, unspecified
CPT/HCPCS: 36415; 80048; 80076; 85025; 85027; 85652; 99212

== ENCOUNTER 2023-10-31 05:58 | Day surgery (SDC) | payer MEDICARE, OTHER, SELFPAY ==
--- NOTE | 2023-10-26 13:03 | HO.ANESPROP2 ---
Documented by User: Amanda Lan NP 10/26/23 13:06 HPI - Anesthesia Eval Consult details Narrative: 78yo M for Right Cystoscopy, Ureteroroscopy, Retro, Laser with stent exchange s/p same 08/2023 with GA-LMA 5 Eliquis for afib Cardiac optimized per workload [facility] Active Problems Active Problems: All Active Problems Pre-op chest exam (Acute) BPH loc w urin obs/LUTS (Acute) Ureteral calculus, right (Acute) Ureteral stent present (Acute) Bilateral kidney stones (Acute) Aspiration pneumonitis (Acute) ETELVINA (acute kidney injury) (Acute) Cellulitis of face (Acute) Atrial flutter (Acute) Asthma-COPD overlap syndrome (Acute) MARE (obstructive sleep apnea) (Acute) Cardiomyopathy (Acute) SOB (shortness of breath) on exertion (Acute) Chronic restrictive lung disease (Acute) Chronic renal disease (Acute) PVCs (premature ventricular contractions) (Acute) CAD (coronary artery disease) (Acute) Dyspnea (Acute) Chronic allergic rhinitis (Acute) Asthma (Acute) Past Medical History Medical History Pulmonary nodules Chronic restrictive lung disease Chronic renal disease Nonsustained ventricular tachycardia PVCs (premature ventricular contractions) CAD (coronary artery disease) Dyspnea Chronic allergic rhinitis Asthma Sarcoidosis Family History Family History Other Asthma Family history of problems with anesthesia: No Surgical History Surgical History H/O hernia repair Stented coronary artery History of Problems with Anesthesia: No Social History Social History Household Members: Spouse Housing: House Do you presently have visiting nurse or other home services: No Alcohol intake: never Patient Tobacco Use Status: Never used Tobacco Tobacco use type: Cigar e-Cigarette/Vaping Use: Never Used Second Hand Smoke Exposure: No Use of substances other than those prescribed or required for medical reasons: No Are you DNR?: No Advance Directives: No Advance Directives Information Provided: Yes Advance Directives Date on File: 09/14/23 Recently lost weight without trying: No service: No Meds Allergies Allergy/AdvReac Type Severity Reaction Status Date / Time gadobenic acid [Multihance] Allergy Severe Rash Verified 10/31/23 06:48 azithromycin Allergy Intermediate HIVES Verified 10/31/23 06:48 [From ZITHROMAX Z-JOYCE] Iodinated Contrast Media Allergy Intermediate HIVES Verified 10/31/23 06:48 [IV CONTRAST] Penicillins Allergy Mild RASH Verified 10/31/23 06:48 Home Medications ?Medication ?Instructions ?Recorded ?Confirmed ?Last Taken ?Type allopurinol 100 mg tablet 100 mg PO DAILY 04/21/20 10/31/23 09/14/23 History montelukast 10 mg tablet 10 mg PO DAILY@1200 04/21/20 10/31/23 09/14/23 History potassium citrate 10 mEq (1,080 10 meq PO BID 02/07/23 10/31/23 09/14/23 History mg) tablet,extended release finasteride 5 mg tablet 5 mg PO DAILY 06/29/23 10/31/23 09/14/23 History brimonidine 0.1 % eye drops 1 drp ophthalmic (eye) BID 08/21/23 10/31/23 09/14/23 History (Alphagan P) dronedarone 400 mg tablet (Multaq) 400 mg PO BID 08/21/23 10/31/23 09/14/23 History atorvastatin 80 mg tablet 80 mg PO BEDTIME 09/04/23 10/31/23 09/14/23 History mometasone-formoterol HFA 200 1 puff inhalation BID 09/04/23 10/31/23 09/14/23 History mcg-5 mcg/actuation aerosol inhaler (Dulera) Exam Pertinent Lab Results Pertinent Lab Results: Laboratory Tests 10/24/23 14:42 WBC 5.3 Hgb 11.8 L Hct 35.1 L Plt Count 155 L Sodium 141 Potassium 4.3 Chloride 110 H Carbon Dioxide 25 BUN 20 H Creatinine 1.99 H Narrative Narrative: EKG 08/2023 Vent. Rate : 068 BPM Atrial Rate : 068 BPM P-R Int : 182 ms QRS Dur : 118 ms QT Int : 442 ms P-R-T Axes : 053 -26 052 degrees QTc Int : 469 ms Sinus rhythm with frequent Premature ventricular complexes Non-specific intra-ventricular conduction delay Nonspecific ST and T wave abnormality Prolonged QT Abnormal ECG When compared with ECG of 14-SEP-2023 21:03, No significant changes seen ECHO 2022 Conclusions: - 1. Mild to moderate LV systolic dysfunction 2. Left atrial is mildly dilated 3. Mild aortic stenosis 4. Normal RVSP 5. No pericardial effusion. Assessment and Plan Assessment Anesthesia Assessment: Chart Reviewed Final Anesthetic Review Family History of Problems with Anesthesia: No History of Problems with Anesthesia: No Documented by User: Karin Kasper MD 10/31/23 08:23 [facility] Past Medical History Medical History Pulmonary nodules Chronic restrictive lung disease Chronic renal disease Nonsustained ventricular tachycardia PVCs (premature ventricular contractions) CAD (coronary artery disease) Dyspnea Chronic allergic rhinitis Asthma Sarcoidosis Family History Family History Other Asthma Surgical History Surgical History H/O hernia repair Stented coronary artery Social History Social History Household Members: Spouse Housing: House Do you presently have visiting nurse or other home services: No Alcohol intake: never Patient Tobacco Use Status: Never used Tobacco Tobacco use type: Cigar e-Cigarette/Vaping Use: Never Used Second Hand Smoke Exposure: No Use of substances other than those prescribed or required for medical reasons: No Are you DNR?: No Advance Directives: No Advance Directives Information Provided: Yes Advance Directives Date on File: 09/14/23 Recently lost weight without trying: No service: No Meds Allergies Allergy/AdvReac Type Severity Reaction Status Date / Time gadobenic acid [Multihance] Allergy Severe Rash Verified 10/31/23 06:48 azithromycin Allergy Intermediate HIVES Verified 10/31/23 06:48 [From ZITHROMAX Z-JOYCE] Iodinated Contrast Media Allergy Intermediate HIVES Verified 10/31/23 06:48 [IV CONTRAST] Penicillins Allergy Mild RASH Verified 10/31/23 06:48 Home Medications ?Medication ?Instructions ?Recorded ?Confirmed ?Last Taken ?Type allopurinol 100 mg tablet 100 mg PO DAILY 04/21/20 10/31/23 09/14/23 History montelukast 10 mg tablet 10 mg PO DAILY@1200 04/21/20 10/31/23 09/14/23 History potassium citrate 10 mEq (1,080 10 meq PO BID 02/07/23 10/31/23 09/14/23 History mg) tablet,extended release finasteride 5 mg tablet 5 mg PO DAILY 06/29/23 10/31/23 09/14/23 History brimonidine 0.1 % eye drops 1 drp ophthalmic (eye) BID 08/21/23 10/31/23 09/14/23 History (Alphagan P) dronedarone 400 mg tablet (Multaq) 400 mg PO BID 08/21/23 10/31/23 09/14/23 History atorvastatin 80 mg tablet 80 mg PO BEDTIME 09/04/23 10/31/23 09/14/23 History mometasone-formoterol HFA 200 1 puff inhalation BID 09/04/23 10/31/23 09/14/23 History mcg-5 mcg/actuation aerosol inhaler (Dulera) Exam Airway Mallampati Class: III TM Dist: <=3cm Neck ROM: Limited Heart: rrr Lungs: cta Assessment and Plan Assessment Anesthesia Assessment: Anesthesia Plan Discussed Final Anesthetic Review NPO: Yes ASA Class: III Final Preanesthetic Review: No Changes in Pt Med Stat, Meds/Allgs Chart Reviewed, Consent Obtained/Reviewed and Anes Risks/Benef Reviewed Patient Risk: Intermediate Procedure Risk: Low Anesthetic Plan Anesthetic Plan: GA Disposition: Standard PACU
[2023-10-31] VITALS (8 sets, daily range): BP systolic 90–112; BP diastolic 45–82; PULSE 54–78; RESP 16–18; TEMP 36.3–36.4; O2SAT 94–100; BMI 29.7
[2023-10-31] MEDS: Lactated Ringers 1,000 ML 100 ML IVCONT (06:50)
--- NOTE | 2023-10-31 07:35 | MHC.SHP ---
Pre-Procedural Eval Section A - 24 Hr Update-Section A only Date of Service: 10/31/23 The patient is an INPATIENT: No The patient has been examined within 24 hours of the surgical procedure. The History & Physical has been completed within 30 days and I have reviewed it.: Yes Section B - Complete if H&P > 30 days Chief Complaint: Calculus of ureter Allergies: Allergies Allergy/AdvReac Type Severity Reaction Status Date / Time gadobenic acid [Multihance] Allergy Severe Rash Verified 10/31/23 06:48 azithromycin Allergy Intermediate HIVES Verified 10/31/23 06:48 [From ZITHROMAX Z-JOYCE] Iodinated Contrast Media Allergy Intermediate HIVES Verified 10/31/23 06:48 [IV CONTRAST] Penicillins Allergy Mild RASH Verified 10/31/23 06:48 Plan Diagnosis/Plan: Unchanged I have reviewed the history and physical and performed a pertinent physical examination on my patient. No changes have occurred unless specified. Plan for Cystoscopy, right ureteroscopy, possible laser lithotripsy, ureteral stent exchange. Risks discussed included but not limited to, possible need to repeat procedure if stone is not completely fragmented, Irritative voiding symptoms, bladder spasms, urgency, blood in urine. Time Spent With Patient Time: Total time managing care of this patient today ____ minutes.
--- NOTE | 2023-10-31 08:41 | W.PM.OPN ---
Operative Note Operative Note Date of Service: 10/31/23 Narrative: PreOperative Diagnosis:?? Right ureteral stone, hydronephrosis status post right ureteral stent Post Operative Diagnosis:?? Right ureteral stone, hydronephrosis status post right ureteral stent Procedure: Cystoscopy, Right ureteroscopy laser lithotripsy stent exchange, size 6 Uzbek by 22-32 cm Surgeon:?Dr Kuldip Ibarra Anesthesia:? General Indications for procedure: History of nephrolithiasis with bilateral kidney stones, obstructive uropathy secondary to right ureteral stone status post right ureteral stent. Here for stone fragmentation. Procedure: After informed consent was verified the patient was brought to the operating placed on the OR table in supine position.? General Anesthesia was administered per protocol.? The patient was placed in lithotomy position, prepped and draped in the usual sterile fashion.? Safety pause time-out and side of surgery confirmed.? Antibiotics confirmed. A 22 Uzbek cystoscope was inserted transurethrally, the bulbous urethra was within normal limits. The prostatic urethra noted obstructive median lobe. The bladder was visualized.? Both ureteric orifices were in normal position. The right ureteral stent was curled in the bladder. The distal end of the ureteral stent was grasped with the flexible grasping forceps. The stent was pulled retrograde through the urethra. A guidewire was passed through the stent. The cystoscope was removed, leaving the guidewire in place. The guidewire was used as the safety and was attached to the draping. The semi rigid ureteroscope was passed transurethrally to the level of the stone in the mid ureter. Laser lithotripsy of the stone was done using the 365 fiber with a combination of dusting and pulsating settings. There was good fragmentation of the stone. The stones were felt tiny enough to pass. The ureteroscope was removed. The cystoscope was passed over the safety guidewire. A? 6 Uzbek by 22-32 cm stent was placed into the ureter and renal pelvis under a combination of fluoroscopy and direct visualization. The bladder was emptied.? The rigid cystoscope was removed. ? A an 18 Uzbek Logan catheter was placed. The patient tolerated the procedure well and was brought to the recovery room in stable condition. Complications: None Drains: 18 Uzbek Logan, Ureteral stent as dictated above
[2023-10-31] MEDS: Phenazopyridine HCL 200 MG TABLET PO (09:07)
== END 2023-10-31 09:51 | disposition home or self-care (01) ==
PROVIDERS: PCP Internal Medicine; Visit Provider Urology
PROC: (CPT 52356; principal; 2023-10-31 07:30)
DX: N13.2 Hydronephrosis with renal and ureteral calculous obstruction (principal); N13.8 Other obstructive and reflux uropathy; N18.9 Chronic kidney disease, unspecified; Z96.0 Presence of urogenital implants; J98.4 Other disorders of lung; I25.10 Atherosclerotic heart disease of native coronary artery without angina pectoris; Z95.5 Presence of coronary angioplasty implant and graft; J45.909 Unspecified asthma, uncomplicated; D86.9 Sarcoidosis, unspecified; Z79.899 Other long term (current) drug therapy; Z88.0 Allergy status to penicillin; Z88.1 Allergy status to other antibiotic agents; Z88.8 Allergy status to other drugs, medicaments and biological substances; Z91.041 Radiographic dye allergy status; Z98.890 Other specified postprocedural states
CPT/HCPCS: 52356; C1758; C1769; C2617; J0690; J2371; J2405; J2704; J3010; Q9967

== ENCOUNTER → 2023-10-31 05:58 | Outpatient (BNV) | payer MEDICARE, OTHER, SELFPAY | PROVIDERS: PCP Internal Medicine; Visit Provider Urology | DX: N20.1 Calculus of ureter (principal) | CPT/HCPCS: 52356; 74420 ==

== ENCOUNTER 2023-11-16 13:49 | Outpatient (AMB) | payer MEDICARE, OTHER, SELFPAY ==
--- NOTE | 2023-11-16 14:04 | MHC.OFFVIS ---
Intake Visit Reasons: Stent Removal Intake Note: Patient is present for stent removal Urology Medication:TAMSULOSIN, FINESTERIDE, allopurinol, K-citrate Antibiotic Allergy:AZITHROMYCIN Blood Thinner:ELIQUIS Finger Buffs Assembler Required: No Allergies gadobenic acid [Multihance] Allergy (Severe, Verified 11/16/23 14:05) Rash azithromycin [From ZITHROMAX Z-JOYCE] Allergy (Intermediate, Verified 11/16/23 14:05) HIVES Iodinated Contrast Media [IV CONTRAST] Allergy (Intermediate, Verified 11/16/23 14:05) HIVES Penicillins Allergy (Mild, Verified 11/16/23 14:05) RASH Medication List - Last Reconciled 11/16/23 by Kuldip Ibarra MD allopurinol 100 mg PO DAILY apixaban (Eliquis) 5 mg PO BID atorvastatin 80 mg PO BEDTIME bisoprolol fumarate 2.5 mg (1/2 x 5 mg) PO DAILY brimonidine 0.1% (Alphagan P) 1 drp ophthalmic (eye) BID cefuroxime axetil 500 mg PO BID dronedarone (Multaq) 400 mg PO BID finasteride 5 mg PO DAILY losartan 25 mg PO BEDTIME mometasone-formoterol 200-5 mcg/actuation (Dulera) 1 puff inhalation BID montelukast 10 mg PO DAILY@1200 nitrofurantoin monohyd/m-cryst 100 mg (Macrobid) 100 mg PO BID potassium citrate ER 10 mEq PO BID tamsulosin 0.4 mg PO BEDTIME tiotropium bromide 2.5 mcg/actuation (Spiriva Respimat) 2 inhalations inhalation DAILY HPI Comments Details: 11/16/23--Here for stent removal. s/p --Right ureteroscopy laser lithotripsy 10/31/23 for right ureteral stone. Right ureteral stent removed without difficulty. Erasmo was previously followed by [place] [facility] and is on potassium citrate. Will refer to nephrology for further evaluation. Follow-up in 3 months KUB prior. Urine sent for culture will empirically place on Macrobid. Review of chart: 10/19/23--78-year-old male h/o kidney stones. s/p right stent placed on September 04 for a obstructing ureteral stone. CTAP - right ureteral stent in good position, B/L renal stones, right ureteral stone along stent. discussed plan for Cystoscopy, right ureteroscopy, possible laser lithotripsy, ureteral stent exchange. Risks discussed included but not limited to, possible need to repeat procedure if stone is not completely fragmented, Irritative voiding symptoms, bladder spasms, urgency, blood in urine. [facility] Medical History Pulmonary nodules Chronic restrictive lung disease Chronic renal disease Nonsustained ventricular tachycardia PVCs (premature ventricular contractions) CAD (coronary artery disease) Dyspnea Chronic allergic rhinitis Asthma Sarcoidosis Surgical History H/O hernia repair Stented coronary artery Family History Other Asthma Social History Household Members: Spouse Housing: House Do you presently have visiting nurse or other home services: No Alcohol intake: never Patient Tobacco Use Status: Never used Tobacco Tobacco use type: Cigar e-Cigarette/Vaping Use: Never Used Second Hand Smoke Exposure: No Advance Directives Date on File: 09/14/23 service: No Review of Systems Const All systems reviewed & are unremarkable except as noted in HPI and below Reports no additional complaints Eyes Reports no additional complaints ENT Reports no additional complaints Card Reports no additional complaints Resp Reports no additional complaints GI Reports no additional complaints Reports as per HPI Musc Reports no additional complaints Skin/Breast Reports system reviewed and no additional complaints, except as documented Neuro Reports no additional complaints Psych Reports no additional complaints Endo Reports no additional complaints Josias/Lymph Reports no additional complaints Aller/Immun Reports no additional complaints Office Procedures Cystoscopy Consent Discussed risk and benefit or proposed procedure with the patient. Information consent for procedure given to the patient. Discussed technical aspects, risks, benefits and alternatives in full. Addressed all of the patient's questions and concerns regarding the procedure. The patient demonstrated knowledge and understanding. They wish to proceed with this procedure. Preparation The patient was prepped in the usual manner. A television receiver analyzer was present and in the room. Genitalia was prepped with betadine solution in a sterile manner. Lidocaine Jelly 2% was placed into the urethra and 16Fr flexible Olympus cystoscope was inserted into the meatus after adequate lubrication. Time out per protocol performed. Bladder Inspection Cystoscopy findings: mild edema ureteral orifice which is expected, distal end of ureteral stent visualized. The grasping forceps were used and the stent was removed without difficulty. [id number] with stent removal DISPOSABLE SCOPE URO-G FLEXIBLE SCOPE Procedure code (CPT) selection complete Office Meds lidocaine HCl 2 % mucosal jelly in applicator Performing Provider: Kuldip Ibarra MD Performing Location: [facility] Urology [facility] Administered by: Filemon Earl LPN on 11/16/23 14:21 Dose Route Admin Location Dispensed Lot Number Expiration Date [employer] 10 mL intra-urethral 10 mL naproxen 500 mg tablet Performing Provider: Kuldip Ibarra MD Performing Location: [facility] Urology [facility] Administered by: Filemon Earl LPN on 11/16/23 14:21 Dose Route Admin Location Dispensed Lot Number Expiration Date [employer] 500 mg PO 1 tab ciprofloxacin HCl 500 mg tablet Performing Provider: Kuldip Ibarra MD Performing Location: [facility] Urology [facility] Administered by: Filemon Earl LPN on 11/16/23 14:21 Dose Route Admin Location Dispensed Lot Number Expiration Date [employer] 500 mg PO 1 tab Results AMB Urinalysis, Automated UA Leukoctes 500 Brook[place]nn/uL Last Edit by URVASHI Mckeon on 11/16/23 14:24 UA Nitrite Negative Last Edit by URVASHI Mckeon on 11/16/23 14:24 UA Urobilinogen 0.2 mg/dL Last Edit by URVASHI Mckeon on 11/16/23 14:24 UA Protein 30 mg/dL Last Edit by URVASHI Mckeon on 11/16/23 14:24 UA pH 6.0 Last Edit by URVASHI Mckeon on 11/16/23 14:24 UA Blood 200 Sanjiv/uL Last Edit by URVASHI Mckeon on 11/16/23 14:24 UA Specific [place] 1.015 Last Edit by URVASHI Mckeon on 11/16/23 14:24 UA Ketone Negative Last Edit by URVASHI Mckeon on 11/16/23 14:24 UA Bilirubin 0 mg/dL Last Edit by URVASHI Mckeon on 11/16/23 14:24 UA Glucose 0 mg/dL Last Edit by URVASHI Mckeon on 11/16/23 14:24 Results Reviewed Results Reviewed: Laboratory Last Values Urine pH (Auto) 6.0 11/16/23 14:23 Specific [place] (Auto) 1.015 11/16/23 14:23 Urine Protein (Auto) 30 mg/dL 11/16/23 14:23 Glucose (UA)(Auto) 0 mg/dL 11/16/23 14:23 Urine Ketones (Auto) Negative 11/16/23 14:23 Urine Blood (Auto) 200 Sanjiv/uL 11/16/23 14:23 Urine Nitrite (Auto) Negative 11/16/23 14:23 Urine Bilirubin (Auto) 0 mg/dL 11/16/23 14:23 Urine Urobilinogen (Auto) 0.2 mg/dL 11/16/23 14:23 Leukocyte Esterase (Auto) 500 Brook[place]nn/uL 11/16/23 14:23 Date of Service: 09/14/23 Procedure(s): CT abdomen pelvis wo IV con Accession Number(s): [id number] cc: Moris Yu MD; Beverly Sanchez MD~ EXAMINATION: CT ABDOMEN AND PELVIS WITHOUT CONTRAST CLINICAL INFORMATION: History of kidney stones status post stent COMPARISON: CT abdomen pelvis 09/04/2023 TECHNIQUE: Multidetector volumetric imaging was performed from the superior aspect of the liver through the pubic symphysis. Sagittal and coronal reformatted images were obtained on the technologist's workstation. This CT examination was performed using dose optimization techniques as appropriate, variously including the following: *Automated exposure control *Adjustment of mA and/or kV according to patient size (this includes techniques or standardized protocols for targeted exams where dose is matched to indication/reason for exam; i.e. extremities or head) *Use of iterative reconstruction technique DLP: 741 mGy-cm FINDINGS: LUNG BASES: Calcified granulomas are present along with traction bronchiectasis and scarring. LIVER, GALLBLADDER, AND BILIARY TREE: The liver is normal in size, shape, and attenuation. No focal hepatic lesion or biliary ductal dilatation is present. The gallbladder is unremarkable with no evidence of radiopaque gallstones, gallbladder wall thickening, or obvious pericholecystic inflammatory changes. PANCREAS: Unremarkable. SPLEEN: Unremarkable. ADRENAL GLANDS: Unremarkable. KIDNEYS AND URETERS: On the right, a double-J internally stent is present. Multiple small intrarenal calculi are seen. There is one larger calculus at the UP junction measuring 0.8 cm. There is a 5 mm calculus adjacent to the stent in the mid ureter. Multiple nonobstructing calculi present in the left kidney. A benign left mid renal 1.0 cm Bosniak class I renal cyst is noted which requires no additional imaging or follow up. No solid renal masses are seen. BLADDER: Logan catheter is present in the bladder GASTROINTESTINAL TRACT: The small and large bowel are unremarkable. The appendix is unremarkable. ABDOMINAL WALL: Tiny periumbilical hernia contains only fat. There is a tiny left inguinal hernia seen containing only fat. LYMPH NODES: No retroperitoneal lymphadenopathy. VASCULAR: Unremarkable. PELVIC VISCERA: The prostate and seminal vesicles are unremarkable. OSSEOUS STRUCTURES: There is a right total hip prosthesis present. Marked degenerative changes are present throughout the spine with mild scoliosis convex to right. IMPRESSION: 1. Bilateral nephrolithiasis with right-sided double-J stent in place. There is a 5 mm calculus adjacent to the stent in the mid ureter. 2. Other incidental findings as described above. Assessment & Plan Assessment & Plan (1) Bilateral kidney stones: Code(s): N20.0 - Calculus of kidney Category: Medical Plan Bilateral kidney stones. Patient previously seen by another urologist and is on potassium citrate. Will refer to nephrology for further evaluation. Follow-up in 3 months KUB prior. Urine sent for culture will empirically place on Macrobid. Orders: Orders AMB Urinalysis Automated Today Z13.9 - Encounter for screening, unspecified AMB Cystoscopy Today N20.0 - Calculus of kidney, N20.1 - Calculus of ureter, N40.1 - Benign prostatic hyperplasia with lower urinary tract symptoms, Z96.0 - Presence of urogenital implants Referrals Nephrology Referral N20.0 - Calculus of kidney Medications: New nitrofurantoin monohyd/m-cryst 100 mg (Macrobid) must administer with a meal/food 100 mg PO BID 6 caps 0RF Patient Instructions: The patient had an opportunity to ask questions regarding treatment plan. The patient expressed understanding and agreement with the above treatment plan. The patient is aware they should contact our office by phone for worsening of their current condition or the appearance of new symptoms. Compliance is encouraged with any medications and followup testing that is ordered. It is a privilege to be allowed the opportunity to participate in the urologic care of your patient. If you have any questions or concerns regarding treatment for the above conditions please do not hesitate to contact me. The office telephone contact is [phone]. This note is constructed in part using voice recognition software. While every effort has been made to ensure accuracy supply room clerk errors may have been included. Yours sincerely, Kuldip Ibarra MD Coding Level of Care Code Est Pt Level 3 (39828) Diagnoses Bilateral kidney stones N20.0 CPT Codes Cystoscopy - CPT: 99713-[id number] with stent removal ([id number])
== END 2023-11-16 15:20 | disposition home or self-care (01) ==
PROVIDERS: PCP Internal Medicine; Visit Provider Urology
DX: N20.0 Calculus of kidney (principal); Z96.0 Presence of urogenital implants; Z13.9 Encounter for screening, unspecified
CPT/HCPCS: 52310; 99213

== ENCOUNTER 2023-11-16 13:49 | Outpatient (REF) | payer MEDICARE, OTHER, SELFPAY | END 2023-11-16 13:50 | disposition home or self-care (01) | LOC: HO.LAB 13:49 | PROVIDERS: PCP Internal Medicine; Visit Provider Urology | DX: N20.0 Calculus of kidney (principal); N39.0 Urinary tract infection, site not specified; Z96.0 Presence of urogenital implants | CPT/HCPCS: 52310; 81003; 87086; 99212 ==

== ENCOUNTER 2023-11-24 13:17 | Outpatient (AMB) | payer MEDICARE, OTHER, SELFPAY ==
[2023-11-24 13:19] VITALS: BP 84/58; PULSE 41; O2SAT 95; BMI 30.7
--- NOTE | 2023-11-24 13:19 | HO.NEPHOV ---
Vital Signs 11/24/23 13:19 Height 5 ft 10 in Weight 214 lb BMI 30.7 BP 84/58 L Blood Pressure Location Rt brachial Position Sitting Pulse 41 L Pulse Source Pulse Oximeter Pulse Oximetry (%) 95 Oxygen Delivery Method Room Air Intake Visit Reasons: Calculus of kidney/ LVM Microelectronics Assembler Required: No Accompanied by: Spouse Allergies gadobenic acid [Multihance] Allergy (Severe, Verified 11/24/23 13:22) Rash azithromycin [From ZITHROMAX Z-JOYCE] Allergy (Intermediate, Verified 11/24/23 13:22) HIVES Iodinated Contrast Media [IV CONTRAST] Allergy (Intermediate, Verified 11/24/23 13:22) HIVES Penicillins Allergy (Mild, Verified 11/24/23 13:22) RASH Medication List - Last Reconciled 11/24/23 by Mau Hodge MD allopurinol 100 mg PO DAILY apixaban (Eliquis) 5 mg PO BID atorvastatin 80 mg PO BEDTIME bisoprolol fumarate 2.5 mg (1/2 x 5 mg) PO DAILY brimonidine 0.1% (Alphagan P) 1 drp ophthalmic (eye) BID dronedarone (Multaq) 400 mg PO BID finasteride 5 mg PO DAILY losartan 25 mg PO BEDTIME mometasone-formoterol 200-5 mcg/actuation (Dulera) 1 puff inhalation BID montelukast 10 mg PO DAILY@1200 potassium citrate ER 10 mEq PO BID tamsulosin 0.4 mg PO BEDTIME tiotropium bromide 2.5 mcg/actuation (Spiriva Respimat) 2 inhalations inhalation DAILY HPI Comments Details: 78-year-old male with pertinent history of paroxysmal atrial flutter on Eliquis, BPH, 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 Underwent cystoscopy and stent placement. Stent was removed in October 2023. Blood pressure has been relatively low. Bisoprolol has been cut by 50% by Cardiology. He was accompanied by his today. He is still has relatively low blood pressure. He has been able to maintain fluid intake. No nausea or vomiting. No chest pain no palpitation. No urinary symptoms at present. Recent creatinine was 1.9 as of October 23 which is higher than the baseline. [facility] Medical History Pulmonary nodules Chronic restrictive lung disease Chronic renal disease Nonsustained ventricular tachycardia PVCs (premature ventricular contractions) CAD (coronary artery disease) Dyspnea Chronic allergic rhinitis Asthma Sarcoidosis Surgical History H/O hernia repair Stented coronary artery Family History Other Asthma Social History Household Members: Spouse Housing: House Do you presently have visiting nurse or other home services: No Alcohol intake: never Patient Tobacco Use Status: Never used Tobacco Tobacco use type: Cigar e-Cigarette/Vaping Use: Never Used Second Hand Smoke Exposure: No Advance Directives Date on File: 09/14/23 service: No Physical Exam Vital Signs: Last Vital Signs Pulse 41 L 11/24/23 13:19 BP 84/58 L 11/24/23 13:19 Pulse Ox 95 11/24/23 13:19 Oxygen Delivery Method Room Air 11/24/23 13:19 BMI result Body Mass Index 30.7 Currently in a wheelchair comfortable. Neck supple no JVD. Mucosa dry. Lungs entry equal. Heart has been steroid no gallop Abdomen soft nontender Extremities no edema. Results Reviewed Nephrology Results: Hgb 11.8 g/dl (14.0-18.0) L 10/24/23 WBC 5.3 X10*3/uL (4.8-10.8) 10/24/23 Plt Count 155 X10*3/uL (160-400) L 10/24/23 Sodium 141 mmol/L (135-145) 10/24/23 Potassium 4.3 mmol/L (3.3-5.1) 10/24/23 Chloride 110 mmol/L (96-108) H 10/24/23 Carbon Dioxide 25 mmol/L (22-29) 10/24/23 BUN 20 mg/dL (9-16) H 10/24/23 Creatinine 1.99 mg/dL (0.5-1.4) H 10/24/23 Calcium 9.6 mg/dL (8.4-10.2) 10/24/23 Urine Protein 30 (1+) mg/dL (Neg-Trace) H 09/14/23 Assessment & Plan Assessment & Plan (1) ETELVINA (acute kidney injury): Comment: Due to obstructive uropathy. Code(s): N17.9 - Acute kidney failure, unspecified Category: Medical Plan: Renal function improved after leading obstruction. There has been a recent bump in serum creatinine. Creatinine was 1.9 as of October 23. This could be due to hypoperfusion. Status post removal of ureteral stent and cystoscopy few weeks ago. There could be a component of hypoperfusion from low blood pressure as well Recheck renal function today. Encouraged him to increase fluid intake. (2) Bilateral kidney stones: Code(s): N20.0 - Calculus of kidney Category: Medical Plan: Increase p.o. fluid intake Continue with lemonade Low-sodium diet. (3) HTN (hypertension): Code(s): I10 - Essential (primary) hypertension Category: Medical Plan: Blood pressure is rather low today. Discontinue losartan 25 mg daily. . Orders: Orders Basic Metabolic Panel Today N17.9 - Acute kidney failure, unspecified, N20.0 - Calculus of kidney Complete Blood Count Auto Diff Today N17.9 - Acute kidney failure, unspecified, N20.0 - Calculus of kidney Medications: Discontinued losartan Discontinued Reason: Doctor's Order 25 mg PO BEDTIME 90 tabs 3RF Coding Level of Care Code Est Pt Level 4 (93799) Complex EM visit Add On G2211 Diagnoses ETELVINA (acute kidney injury) N17.9 Bilateral kidney stones N20.0 HTN (hypertension) I10
== END 2023-11-24 13:42 | disposition home or self-care (01) ==
PROVIDERS: PCP Internal Medicine; Visit Provider Internal Medicine Hypertension Specialist
DX: N17.9 Acute kidney failure, unspecified (principal); N20.0 Calculus of kidney; I10 Essential (primary) hypertension
CPT/HCPCS: 99214; G2211

== ENCOUNTER → 2023-11-24 13:17 | Outpatient (BNVA) | payer MEDICARE, OTHER, SELFPAY | PROVIDERS: PCP Internal Medicine; Visit Provider Internal Medicine Hypertension Specialist | DX: N20.0 Calculus of kidney (principal); N17.9 Acute kidney failure, unspecified; I10 Essential (primary) hypertension | CPT/HCPCS: 99212 ==

== ENCOUNTER 2024-01-02 14:37 | Outpatient (REF) | payer MEDICARE, OTHER, SELFPAY ==
[2024-01-02 15:41] LABS: MANUAL DIFF FLAG NO
[2024-01-02 17:04] LABS: Basophils Percent Auto 0.7 % (0-2); Eosinophils Absolute Auto 0.2 X10*3/uL (0.0-0.4); Eosinophils Percent Auto 3.7 % (0-4); Hematocrit 37.6 % (42.0-52.0); Hemoglobin 12.6 g/dl (14.0-18.0); Imm Gran Abs Auto 0.04 X10*3/uL (0.00-0.03); Imm Gran Pct Auto 0.7 % (0.0-0.4); Lymphocytes Absolute Auto 0.9 X10*3/uL (1.2-4.9); Mean Corpuscular HGB Conc 33.5 g/dl (31.0-36.0); Mean Corpuscular Hemoglobin 32.8 pg (27.0-33.0); Mean Corpuscular Volume 97.9 fL (80.0-98.0); Mean Platelet Volume 11.5 fL (9.4-12.4); Monocytes Absolute Auto 0.5 X10*3/uL (0.1-1.2); Neutrophils Percent Auto 69.9 % (45-73); Platelet Count 155 X10*3/uL (160-400); Red Blood Count 3.84 X10*6/uL (4.60-5.80); Red Cell Distribution Width 13.9 % (11.0-16.0); White Blood Count 5.7 X10*3/uL (4.8-10.8)
[2024-01-02 17:28] LABS: Anion Gap 10 (12-20); Blood Urea Nitrogen 17 mg/dL (9-16); Calcium 9.7 mg/dL (8.4-10.2); Carbon Dioxide 23 mmol/L (22-29); Chloride 110 mmol/L (96-108); Estimated Glomerular Filt Rate 38; Glucose Random 97 mg/dL (60-115); Potassium 4.4 mmol/L (3.3-5.1); Sodium 139 mmol/L (135-145)
== END 2024-01-02 14:38 | disposition home or self-care (01) ==
LOC: HO.LAB 14:37
PROVIDERS: Internal Medicine Hypertension Specialist; PCP Internal Medicine; Visit Provider Internal Medicine Cardiovascular Disease
DX: N20.0 Calculus of kidney (principal); N17.9 Acute kidney failure, unspecified; I95.9 Hypotension, unspecified; I48.92 Unspecified atrial flutter; I42.9 Cardiomyopathy, unspecified; I25.10 Atherosclerotic heart disease of native coronary artery without angina pectoris; R00.1 Bradycardia, unspecified; I44.0 Atrioventricular block, first degree; Z79.899 Other long term (current) drug therapy
CPT/HCPCS: 36415; 80048; 85025; 93005; 99212

== ENCOUNTER 2024-01-02 14:37 | Outpatient (AMB) | payer MEDICARE, OTHER, SELFPAY ==
--- NOTE | 2024-01-02 14:50 | A.OFFVIS_ITS ---
Vital Signs 01/02/24 14:55 Height 5 ft 10 in Weight 209 lb 14.081 oz BMI 30.1 BP 90/52 L Blood Pressure Location Lt brachial Position Sitting Pulse 57 Intake Visit Reasons: 6m follow up Intake Note: 6 mo f/u. Had an episode of dizziness yesterday. Pt has had some medication adjustments. Combat Control Required: No Accompanied by: Spouse Allergies gadobenic acid [Multihance] Allergy (Severe, Verified 11/24/23 13:22) Rash azithromycin [From ZITHROMAX Z-JOYCE] Allergy (Intermediate, Verified 11/24/23 13:22) HIVES Iodinated Contrast Media [IV CONTRAST] Allergy (Intermediate, Verified 11/24/23 13:22) HIVES Penicillins Allergy (Mild, Verified 11/24/23 13:22) RASH Medication List - Last Reconciled 01/02/24 by Joon Hopper MD allopurinol 100 mg PO DAILY apixaban (Eliquis) 5 mg PO BID atorvastatin 80 mg PO BEDTIME bisoprolol fumarate 2.5 mg (1/2 x 5 mg) PO DAILY brimonidine 0.1% (Alphagan P) 1 drp ophthalmic (eye) BID dronedarone (Multaq) 400 mg PO Q12H 90 days finasteride 5 mg PO DAILY mometasone-formoterol 200-5 mcg/actuation (Dulera) 1 puff inhalation BID montelukast 10 mg PO DAILY@1200 potassium citrate ER 10 mEq PO BID tamsulosin 0.4 mg PO BEDTIME tiotropium bromide 2.5 mcg/actuation (Spiriva Respimat) 2 inhalations inhalation DAILY HPI Comments Details: Erasmo comes for follow-up. Since I last saw him he has had multiple hospitalizations initially related to sepsis related to his oral infection, subsequently developed shortness of breath and was started on Lasix and admitted with acute dehydration and subsequently diagnose with obstructing renal stone for which she then underwent stent placement. This was then followed by infection along with acute kidney injury. Patient since then has had significant issues with low blood pressure and symptoms of lightheadedness. His losartan was discontinued as bisoprolol was reduced to 2.5 mg daily. Last night continued to have symptoms of lightheadedness. No falls. He does not have a robust oral intake of fluids. Denies any heart failure symptoms. No prolonged palpitation irregular heartbeat. Last creatinine in September was 1.99, no repeat renal function since then. Denies any wheezing or cough productive of phlegm. No fever or chills. No orthopnea, PND, leg edema. No chest pain. [facility] Medical History Pulmonary nodules Chronic restrictive lung disease Chronic renal disease Nonsustained ventricular tachycardia PVCs (premature ventricular contractions) CAD (coronary artery disease) Dyspnea Chronic allergic rhinitis Asthma Sarcoidosis Surgical History H/O hernia repair Stented coronary artery Family History Father Atrial fibrillation Mother Atrial fibrillation Other Asthma Social History Household Members: Spouse Housing: House Do you presently have visiting nurse or other home services: No Alcohol intake: never Patient Tobacco Use Status: Never used Tobacco Tobacco use type: Cigar e-Cigarette/Vaping Use: Never Used Second Hand Smoke Exposure: No Advance Directives Date on File: 09/14/23 service: No Review of Systems Const Denies chills, Denies fatigue, Denies fever(s), Denies weight gain and Denies weight loss ENT Denies dizziness Card Denies chest pain, Denies leg edema, Denies lightheadedness, Denies palpitations, Denies dyspnea on exertion, Denies orthopnea and Denies other Resp Denies cough and Denies dyspnea on exertion GI Denies hematochezia and Denies change in stool character Musc Denies abnormal gait, Denies muscle weakness, Denies numbness, Denies radiating pain into limb and Denies tingling Neuro Denies abnormal gait, Denies dizziness, Denies numbness and Denies tingling Endo Denies fatigue and Denies palpitations Physical Exam Vital Signs: Last Vital Signs Pulse 57 01/02/24 14:55 BP 90/52 L 01/02/24 14:55 BMI result Body Mass Index 30.1 Const General: cooperative, comfortable, alert, awake and tired appearing Nutritional Appearance: obese Orientation/consciousness: patient oriented x3 Limitations: ambulation with walker Neck Neck: Yes trachea midline, Yes supple and Yes no JVD Resp Effort & Inspection: normal respiratory effort Auscultation: clear to auscultation bilaterally, no rales and no wheezes Cardio Jugular venous distension: no JVD Palpation: normal PMI Rate: regular rate Rhythm: regular rhythm Heart sounds: S1 normal heart sound present, S2 normal heart sound present, no click, no gallops and Murmur heart sound present systolic early, decrescendo and crescendo GI Auscultation: normal bowel sounds Skin General skin exam: no rashes or lesions noted Neuro General: patient oriented x3 and no focal motor deficits Extrem General: Yes no clubbing, cyanosis or edema Psych Appearance: grossly normal Office Procedures EKG Details: EKG shows sinus bradycardia with first-degree AV block otherwise normal EKG [id number], Complete Assessment & Plan Assessment & Plan (1) Low blood pressure: Code(s): I95.9 - Hypotension, unspecified Category: Medical Plan: Patient will continue low blood pressure. At this point time I encouraged to increase fluid intake as well as somewhat of salt intake. Will discontinue bisoprolol therapy given his low blood pressure. Follow-up renal function near future. Management of low blood pressure was discussed. (2) Paroxysmal atrial flutter: Code(s): I48.92 - Unspecified atrial flutter Category: Medical Plan: Paroxysmal atrial flutter has remained suppressed on Multaq therapy. Continue the same. No side effects related to it. Rhythm control approach. Continue full oral anticoagulation, currently on Eliquis 5 mg b.i.d.. Closely follow renal function. (3) Cardiomyopathy: Code(s): I42.9 - Cardiomyopathy, unspecified Category: Medical Plan: Cardiomyopathy process with [id number] LV systolic dysfunction. No signs or symptoms of heart failure. Can not tolerate neurohormonal modulation due to low blood pressure. Will continue to monitor clinically for signs and symptoms of heart failure. This was discussed. Understands agrees. (4) CAD (coronary artery disease): Code(s): I25.10 - Atherosclerotic heart disease of picayune coronary artery without angina pectoris Category: Medical Plan: CAD with prior LAD stenting. No symptoms of angina. Continue full oral anticoagulation Eliquis. Avoid aspirin therapy to reduce bleeding risk. Continue aggressive risk factor modification high-intensity statin therapy. Will follow up in the clinic in 3 months time, sooner p.r.n.. Thank you for allowing me to partake in his care Orders: Orders Basic Metabolic Panel Today N17.9 - Acute kidney failure, unspecified Coding Level of Care Code Est Pt Level 4 (44845) Complex EM visit Add On G2211 Diagnoses Low blood pressure I95.9 Paroxysmal atrial flutter I48.92 Cardiomyopathy I42.9 CAD (coronary artery disease) I25.10 CPT Codes EKG - CPT: 79381-[id number], Complete ([id number])
[2024-01-02 14:55] VITALS: BP 90/52; PULSE 57; BMI 30.1
== END 2024-01-02 15:22 | disposition home or self-care (01) ==
LOC: HO.HCS 14:37
PROVIDERS: PCP Internal Medicine; Visit Provider Internal Medicine Cardiovascular Disease
DX: I95.9 Hypotension, unspecified (principal); I48.92 Unspecified atrial flutter; I42.9 Cardiomyopathy, unspecified; I25.10 Atherosclerotic heart disease of native coronary artery without angina pectoris
CPT/HCPCS: 93010; 99214; G2211

== ENCOUNTER 2024-02-15 11:42 | Outpatient (REF) | payer MEDICARE, OTHER, SELFPAY ==
--- NOTE | ~2024-02-15 | XR_ITS ---
EXAMINATION: XR ABDOMEN KUB CLINICAL INDICATION: N40.1 - Benign prostatic hyperplasia with lower urinary tract symptoms COMPARISON: 09/18/2023 TECHNIQUE: AP view of the abdomen. FINDINGS: Previously seen right nephroureteral stent has been removed. Multiple calcified stones are again seen throughout both kidneys. There is a large calcified stone in the right paraspinal soft tissues at the level of the L3 likely within the proximal ureter. This is grossly unchanged in position compared to the prior exams. There are multiple additional calcifications along the right paraspinal soft tissues extending more inferiorly which could represent additional ureteral stones. Bowel gas pattern is unremarkable. Status post right hip total arthroplasty. Degenerative changes seen of the lumbar spine and left hip joint XR/XR KUB IMPRESSION: 1. Bilateral nephrolithiasis. 2. Large calcified stone in the right paraspinal soft tissues at the level of L3 likely within the proximal ureter. This is grossly unchanged in position compared to the prior exams. There are multiple additional calcifications along the right paraspinal soft tissues extending more inferiorly which could represent additional ureteral stones. Electronically signed by: Newton Elkins MD 02/17/2024 08:39 PM CATHLEEN HAYWARD
--- OUTSIDE RECORDS SUMMARY | 2024-02-15 11:49 | XMS_ITS ---
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 Name Role Phone Moris Yu Primary Care Provider ALLERGIES Allergen (clinical drug ingredient) Drug/Non Drug Allergy documented on EMR Reaction Allergy Type Onset Date Status azithromycin Zithromax Z-Jhonny severe diarrhea Drug Allergy Active penicillin G Penicillin G Potassium rash Drug Allergy Active Doxycycline Calcium hives Drug Allergy Active Gadolinium and/or gadolinium compound (FN) gadalinium (uncoded) hives Allergy Active Gadavist hives Drug Allergy Active REASON FOR VISIT 3 DAY F/U, video [phone] MEDICATIONS Medication SIG (Take, Route, Frequency, Duration) Notes Start Date End Date Status Spiriva Respimat 2.5 MCG/ACT 2 puffs Inhalation Once a day Active Atorvastatin Calcium 80 MG take 1 tablet daily Orally Once a day Active Dulera 100-5 MCG/ACT 2 puffs Inhalation Twice a day Active Prevagen 10 MG as directed Orally Active Bisoprolol Fumarate 5 MG 1 tablet Orally Once a day for 30 day(s) Active Finasteride 5 MG 1 tablet Orally Once a day for 30 day(s) Active Potassium Citrate ER 10 MEQ (1080 MG) 1 tablet with meals Orally Twice a day Active Allopurinol 100 MG 1 tablet Orally Once a day for 30 day(s) Active Xelpros 0.005 % 1 null into affected eye in the evening Ophthalmic Once a day Active Losartan Potassium 25 MG 1 tablet Orally Once a day for 30 day(s) Active Ventolin HFA 108 2 puffs as needed Inhalation every 4 hrs Not-Takin g Albuterol Sulfate 0.63 MG/3ML 3 ml as needed Inhalation Three times a day for 90 days 10/23/2014 Not-Taking Multaq 400 MG 1 tablet with meals Orally Twice a day for 30 day(s) Active Cialis 10 MG 1 tablet Orally for 30 day(s) Not-Taking Pyridium 100 MG 1 tablet after meals Orally Three times a day for 10 days 09/14/2023 Active Omeprazole 20 MG TAKE 1 CAPSULE DAILY Orally Once a day for 90 days Not-Taking Alphagan P 0.1 % 1 drop into affected eye Ophthalmic every 8 hrs Not-Taking Albuterol Sulfate HFA 108 (90 Base) MCG/ACT 1 puff as needed Inhalation every 4 hrs 07/09/2021 Not-Takin g Budesonide (Inhalation) once a day, QOD Not-Taking Naproxen 250 MG 1 tablet with food o r milk Orally Twice a day for 30 day(s) Not-Taking Doxycycline Hyclate 100 MG 1 capsule Orally Once a day for 10 day(s) Not-Taking Eliquis 5 MG 1 tablet Orally Twic e a day for 30 day(s) Not-Taking Montelukast Sodium 10 mg TAKE 1 TABLET D AILY IN THE EVENING Active Dymista 137-50 MCG/ACT 1 puff in each no stril Nasally Twice a day Not-Taking Escitalopram Oxalate 10 MG 1 tablet Orally Once a day for 30 day(s) 07/08/2022 Not-Taking PROBLEMS Problem Type ICD Code Onset Dates Problem Status W/U Status Risk SNOMED Code Notes Problem Acute constipation (K59.00) Active confirmed 777858172 VITAL SIGNS BMI 30.85 kg/m2 09/14/2023 Height 70 in 09/14/2023 Weight 215 lbs 09/14/2023 weight is 215 at home BP not taken at home today no temp Encounters Encounter Location Date Provider Diagnosis Moris Yu MD [address] [place], [place] [phone] 09/14/2023 Moris Yu Dysuria R30.0 ; Acut e diarrhea R19.7 and Acute constipation K59.00 ASSESSMENTS Encounter Date Diagnosis Assessment Notes Treatment Notes Treatment Clinical Notes 09/14/2023 Dysuria (ICD-10 - R30.0) 09/14/2023 Acute diarrhea (ICD-10 - R19.7) after taking laxatives, is now having diarrhea. will observe 09/14/2023 Acute constipation (ICD-10 - K59.00) at present after taking laxatives, is cleaned out and not being bothered as much PLAN OF TREATMENT Medication Medication Name Sig Start Date Stop Date Notes Pyridium 100 MG 1 tablet after meals Orally Three times a day for 10 days 09/14/2023 Treatment Notes Assessment Notes Acute diarrhea after taking laxativ es, is now having diarrhea. will observe Acute constipation at present after verito ing laxatives, is cleaned out and not being bothered as much Next Appt Details Provider Name:Moris delgadillo, 03/01/2024 08:15:00 AM, [address] [place] [address], [address], [place], [place], [phone], Provider Name:Moris delgadillo, 03/08/2024 11:00:00 AM, [address] [place] [address], [address], [place], [place], [phone], Progress Notes * Examination Category Sub-Category Detail Notes General Examination GENERAL APPEARANCE: ill appe aring History and Physical Notes * HPI (History of Present Illness) Category Sub-Category Detail Notes Symptom(s) Telehealth Location of [facility] rendering services:: [address], [address] Location of patient:: at address listed in demographics for today's visit Patient identification confirmed using:: Name, , SSN, Insurance information Telehealth method:: Video co nference where patient is visible to the provider of care Consent:: Patient verbally c onsented to treatment, Patient verbally consented to billing insurance company, Patient informed of any privacy concerns related to method of visit
--- OUTSIDE RECORDS SUMMARY | 2024-02-15 11:49 | XMS_ITS | Continuity of Care Document ---
Author Name [facility] Organization [facility] Care Team Providers Care Supervisor Nutritional Yeast Name Role Phone [facility] Unavailable Unavailable Medications Combined list of outpatient medications from Department of Defense and Veterans Affairs facilities.Medications provided include 1) outpatient medications from the last 15 months, and 2) patient-reported medications. Medication Details Route Status Patient Instructions Prescription Expires Prescription Number Last Dispense Date Ordering Provider Order Date Order Qty Source ALLOPURINOL (ALLOPURINO L), 100MG, TABLET, ORAL, [facility], 1000 ea. BOTTLE Active [id number] 4 2023 90 Pharmac y Data Transac tion Service Facilit y ALPHAGAN P (BRIMONIDIN E TARTRATE), 0.1%, DROPS, OPHTHALMIC, [employer] 5 ml DROP BTL Active [id number] 3 2022 25 Pharmac y Data Transac tion Service Facilit y ALPHAGAN P (BRIMONIDIN E TARTRATE), 0.1%, DROPS, OPHTHALMIC, [employer] 5 ml DROP BTL Active [id number] 4 2023 25 Pharmac y Data Transac tion Service Facilit y AMOX TR-POTASSIU M CLAVULANATE (AMOXICILLI N/POTASSIUM CLAV), 875-125 MG, TABLET, ORAL, [facility], 20 ea. BOTTLE Active [id number] 4 2023 14 Pharmac y Data Transac tion Service Facilit y ATORVASTATI N CALCIUM (atorvastat in calcium), 80 MG, TABLET, ORAL, PRAVIN PHARMACEU, 500 ea. BOTTLE Active [id number] 4 2023 90 Pharmac y Data Transac tion Service Facilit y BISOPROLOL FUMARATE (bisoprolol fumarate), 5 MG, TABLET, ORAL, [employer] 100 ea. BOTTLE Active [id number] 4 2023 90 Pharmac y Data Transac tion Service Facilit y BISOPROLOL FUMARATE (bisoprolol fumarate), 5 MG, TABLET, ORAL, [employer] [facility]., 100 ea. BOTTLE Active [id number] 4 2023 90 Pharmac y Data Transac tion Service Facilit y ELIQUIS (APIXABAN), 5 MG, TABLET, ORAL, [facility] , 60 ea. BOTTLE Active [id number] 4 2023 180 Pharmac y Data Transac tion Service Facilit y ELIQUIS (APIXABAN), 5 MG, TABLET, ORAL, [facility] , 60 ea. BOTTLE Active [id number] 2023 180 Pharmac y Data Transac tion Service Facilit y ELIQUIS (APIXABAN), 5 MG, TABLET, ORAL, [facility] , 60 ea. BOTTLE Cancele d [id number] : 2023 0 Pharmac y Data Transac tion Service Facilit y ELIQUIS (APIXABAN), 5 MG, TABLET, ORAL, [facility] , 60 ea. BOTTLE Cancele d [id number] : 2023 0 Pharmac y Data Transac tion Service Facilit y ELIQUIS (APIXABAN), 5 MG, TABLET, ORAL, [facility] , 60 ea. BOTTLE Active [id number] 4 2023 60 Pharmac y Data Transac tion Service Facilit y FINASTERIDE (FINASTERID E), 5 MG, TABLET, ORAL, EXELAN PHARMACE, 90 ea. BOTTLE Active [id number] 4 2023 90 Pharmac y Data Transac tion Service Facilit y FINASTERIDE (FINASTERID E), 5 MG, TABLET, ORAL, EXELAN PHARMACE, 90 ea. BOTTLE Active [id number] 4 2023 90 Pharmac y Data Transac tion Service Facilit y FINASTERIDE (FINASTERID E), 5 MG, TABLET, ORAL, EXELAN PHARMACE, 90 ea. BOTTLE Active [id number] 2023 90 Pharmac y Data Transac tion Service Facilit y LOSARTAN POTASSIUM (losartan potassium), 25 MG, TABLET, ORAL, [facility]LC[employer] PHARMACE, 1000 ea. BOTTLE Active [id number] 3 2023 90 Pharmac y Data Transac tion Service Facilit y LOSARTAN POTASSIUM (losartan potassium), 25 MG, TABLET, ORAL, [facility]LCARE PHARMACE, 1000 ea. BOTTLE Active [id number] 4 2023 90 Pharmac y Data Transac tion Service Facilit y LOSARTAN POTASSIUM (losartan potassium), 25 MG, TABLET, ORAL, XLCARE PHARMACE, 1000 ea. BOTTLE Active [id number] 4 2023 90 Pharmac y Data Transac tion Service Facilit y MULTAQ (DRONEDARON E HYDROCHLORI DE), 400 MG, TABLET, ORAL, SANOFI-AVEN TIS, 60 ea. BOTTLE Active [id number] 4 2023 180 Pharmac y Data Transac tion Service Facilit y MULTAQ (DRONEDARON E HYDROCHLORI DE), 400 MG, TABLET, ORAL, SANOFI-AVEN TIS, 60 ea. BOTTLE Active [id number] 4 2023 60 Pharmac y Data Transac tion Service Facilit y MULTAQ (DRONEDARON E HYDROCHLORI DE), 400 MG, TABLET, ORAL, SANOFI-AVEN TIS, 60 ea. BOTTLE Active [id number] 4 2023 60 Pharmac y Data Transac tion Service Facilit y POTASSIUM CITRATE (POTASSIUM CITRATE), 10MEQ, TABLET SA, ORAL, UPSHER PICKERING, 100 ea. BOTTLE Active [id number] 4 2023 200 Pharmac y Data Transac tion Service Facilit y POTASSIUM CITRATE (POTASSIUM CITRATE), 10MEQ, TABLET SA, ORAL, UPSHER P[employer]ERING, 100 ea. BOTTLE Active [id number] 4 2023 200 Pharmac y Data Transac tion Service Facilit y SPIRIVA RESPIMAT (TIOTROPIUM BROMIDE), 2.5 MCG, MIST INHAL, INHALATION, BOEHRINGER ING., 4 g AER W/ADAP Active [id number] 4 2023 12 Pharmac y Data Transac tion Service Facilit y Immunizations Combined list of available immunizations from the Department of Defense and Veterans Affairs facilities. Immunization Series Date Given Administered By Site Reaction Lot Number CVX Code Drug Insurance Claims Examiner Status Comments Source Tdap 2019 EVAN, () Not Given Tdap [facility] Influenza, injectable, MDCK, quadrivalent, preservative 2018 ANNABEL,D () Not Given Influenza , injectabl e, MDCK, quadrival ent, preservat mele [facility] zoster recombinant 2018 ANNABEL,D () Not Given zoster recombina nt [facility] Influenza, seasonal, injectable 2014 ANNABEL,D () Not Given Influenza , seasonal, injectabl e DoD Social History Combined list of available smoking, tobacco, and other social history from Department of Defense and Veterans Affairs facilities. Social History Type Response Date Comment [facility] e This section is an empty social history section. DoD
--- OUTSIDE RECORDS SUMMARY | 2024-02-15 11:49 | XMS_ITS ---
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 Name Role Phone Moris Yu Primary Care [...] hives Drug Allergy Active REASON FOR VISIT PH/TCM, Accompanied by MEDICATIONS Medication SIG (Take, Route, Frequency, Duration) Notes Start Date End Date Status Alphagan P 0.1 % 1 drop into affected eye Ophthalmic every 8 hrs Not-Taking Cialis 10 MG 1 tablet Orally for 30 day(s) Not-Taking Albuterol Sulfate 0.63 MG/3ML 3 ml as needed Inhalation Three times a day for 90 days 10/23/2014 Not-Taking Ventolin HFA 108 2 puffs as needed Inhalation every 4 hrs Not-Takin g Multaq 400 MG 1 tablet with meals Orally Twice a day for 30 day(s) Active Naproxen 250 MG 1 tablet with food o r milk Orally Twice a day for 30 day(s) Not-Taking Budesonide (Inhalation) once a day, QOD Not-Taking Albuterol Sulfate HFA 108 (90 Base) MCG/ACT 1 puff as needed Inhalation every 4 hrs 07/09/2021 Not-Takin g Omeprazole 20 MG TAKE 1 CAPSULE DAILY Orally Once a day for 90 days Not-Taking Escitalopram Oxalate 10 MG 1 tablet Orally Once a day for 30 day(s) 07/08/2022 Not-Taking Montelukast Sodium 10 mg TAKE 1 TABLET D AILY IN THE EVENING Active Eliquis 5 MG 1 tablet Orally Twic e a day for 30 day(s) Not-Taking Doxycycline Hyclate 100 MG 1 capsule Orally Once a day for 10 day(s) Not-Taking Dymista 137-50 MCG/ACT 1 puff in each no stril Nasally Twice a day Not-Taking Bisoprolol Fumarate 5 MG 1 tablet Orally Once a day for 30 day(s) Active Atorvastatin Calcium 80 MG take 1 tablet daily Orally Once a day Active Prevagen 10 MG as directed Orally Active Spiriva Respimat 2.5 MCG/ACT 2 puffs Inhalation Once a day Active Dulera 100-5 MCG/ACT 2 puffs Inhalation Twice a day Active Potassium Citrate ER 10 MEQ (1080 MG) 1 tablet with meals Orally Twice a day Active Finasteride 5 MG 1 tablet Orally Once a day for 30 day(s) Active Losartan Potassium 25 MG 1 tablet Orally Once a day for 30 day(s) Active Xelpros 0.005 % 1 null into affected eye in the evening Ophthalmic Once a day Active Allopurinol 100 MG 1 tablet Orally Once a day for 30 day(s) Active VITAL SIGNS BMI 30.70 kg/m2 09/25/2023 Blood pressure systolic 102 mm Hg 09/25/19 24 Blood pressure diastolic 78 mm Hg 024 Height 70 in 09/25/2023 Weight 214 lbs 09/25/2023 Encounters Encounter Location Date Provider Diagnosis Moris Yu MD [address] [place] [address] [address] [place], [place] [phone] 09/25/2023 Moris Yu 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 09/25/2023 Paroxysmal atrial fibrillation (ICD-10 - I48.0) going to get ecg this week 09/25/2023 Chronic congestive heart failure, unspecified heart failure type (ICD-10 - I50.9) stable with no evidence of recurrence PLAN OF TREATMENT Treatment Notes Assessment Notes Status post insertion of az g eluting coronary artery stent no chest pain, Total time spent on the date of the encounter is 35 minutes including both face to face time spent and time spent reviewing documentation, and counseling the patient. Paroxysmal atrial fibrillation going to get ecg this week Chronic congestive heart singh lure, unspecified heart failure type stable with no evidence of recurrence Next Appt Details Provider Name:Moris delgadillo, 03/01/2024 08:15:00 AM, [address] [place] [address], [address], [place], [place], [phone], Provider Name:Moris delgadillo, 03/08/2024 11:00:00 AM, [address] [place] [address], [address], [place], [place], [phone], Progress Notes * Examination Category Sub-Category Detail Notes General Examination GENERAL APPEARANCE: alert, w ell hydrated, in no distress , male HEAD: normocephalic HEART: no murmurs, rubs, ga llops, regular rate and rhythm LUNGS: no wheezes, rales, r honchi, good air movement, clear to auscultation bilaterally ABDOMEN: soft, nontender, non distended SKIN: good turgor EXTREMITIES: no edema
--- OUTSIDE RECORDS SUMMARY | 2024-02-15 11:49 | XMS_ITS ---
Author Organization Moris Yu MD Address [address] [place], [place] [phone] Care Team Providers Care Valve Technician Name Role Phone Moris Yu Primary Care Provider REASON FOR VISIT Discharge summary rec'd Encounters Encounter Location Date Provider Diagnosis Moris Yu MD [address] [place], [place] [phone] 09/19/2023 Moris Yu PLAN OF TREATMENT Next Appt Details Provider Name:Moris delgadillo, 03/01/2024 08:15:00 AM, [address] [place] [address], [address], [place], [place], [phone], Provider Name:Moris delgadillo, 03/08/2024 11:00:00 AM, [address] [place] [address], [address], [place], [place], [phone],
== END 2024-02-15 11:43 | disposition home or self-care (01) ==
LOC: HO.XRAY 11:42
PROVIDERS: PCP Internal Medicine; Visit Provider Urology
DX: N40.1 Benign prostatic hyperplasia with lower urinary tract symptoms (principal); N20.1 Calculus of ureter; N20.0 Calculus of kidney; Z96.0 Presence of urogenital implants
CPT/HCPCS: 74018

== ENCOUNTER 2024-02-22 13:13 | Outpatient (AMB) | payer MEDICARE, OTHER, SELFPAY ==
--- NOTE | 2024-02-21 20:06 | A.OFFVIS_ITS ---
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 KUB 02/15/24--1. Bilateral nephrolithiasis. 2. Large calcified stone in the right paraspinal soft tissues at the level of L3 likely within the proximal ureter. Review of chart: 11/16/23--Here for stent removal. s/p --Right ureteroscopy laser lithotripsy 10/31/23 for right ureteral stone. Right ureteral stent removed without difficulty. Erasmo was previously followed by [facility] and is on potassium citrate. Will refer to nephrology for further evaluation. Follow-up in 3 months KUB prior. Urine sent for culture will empirically place on Macrobid. 10/19/23--78-year-old male h/o kidney stones. s/p right stent placed on September 04 for a obstructing ureteral stone. CTAP - right ureteral stent in good position, B/L renal stones, right ureteral stone along stent. discussed plan for Cystoscopy, right ureteroscopy, possible laser lithotripsy, u reteral stent exchange. Risks discussed included but not limited to, possible need to repeat procedure if stone is not completely fragmented, Irritative voiding symptoms, bladder spasms, urgency, blood in urine. [facility] Medical History Pulmonary nodules Chronic restrictive lung disease Chronic renal disease Nonsustained ventricular tachycardia PVCs (premature ventricular contractions) CAD (coronary artery disease) Dyspnea Chronic allergic rhinitis Asthma Sarcoidosis Surgical History H/O hernia repair Stented coronary artery Family History Father Atrial fibrillation Mother Atrial fibrillation Other Asthma Social History Household Members: Spouse Housing: House Do you presently have visiting nurse or other home services: No Alcohol intake: never Patient Tobacco Use Status: Never used Tobacco Tobacco use type: Cigar e-Cigarette/Vaping Use: Never Used Second Hand Smoke Exposure: No Advance Directives Date on File: 09/14/23 service: No Review of Systems Const All systems reviewed & are unremarkable except as noted in HPI and below Reports no additional complaints Eyes Reports no additional complaints ENT Reports no additional complaints Card Reports no additional complaints Resp Reports no additional complaints GI Reports no additional complaints Reports as per HPI Musc Reports no additional complaints Skin/Breast Reports system reviewed and no additional complaints, except as documented Neuro Reports no additional complaints Psych Reports no additional complaints Endo Reports no additional complaints Josias/Lymph Reports no additional complaints Aller/Immun Reports no additional complaints Office Procedures Post Void Residual Post Residual Void Post Void Residual (PVR): 144 [id number] Void Residual by ultrasound Results AMB Urinalysis, Automated UA Leukoctes 125 Brooklynn/uL Last Edit by Clair Powers CMA on 02/22/24 13:50 UA Nitrite Negative Last Edit by Clair Powers CMA on 02/22/24 13:50 UA Urobilinogen 0.2 mg/dL Last Edit by Clair Powers CMA on 02/22/24 13:5 0 UA Protein 15 mg/dL Last Edit by Clair Powers CMA on 02/22/24 13:50 UA pH 6.0 Last Edit by Clair Powers CMA on 02/22/24 13:50 UA Blood 200 Sanjiv/uL Last Edit by Clair Powers CMA on 02/22/24 13:50 UA Specific Toney 1.015 Last Edit by Clair Powers CMA on 02/22/24 13: 50 UA Ketone Negative Last Edit by Clair Powers CMA on 02/22/24 13:50 UA Bilirubin 0 mg/dL Last Edit by Clair Powers CMA on 02/22/24 13:50 UA Glucose 0 mg/dL Last Edit by Clair Powers CMA on 02/22/24 13:50 Results Reviewed Results Reviewed: Date of Service: 02/15/24 XR ABDOMEN KUB CLINICAL INDICATION: N40.1 - Benign prostatic hyperplasia with lower urinary tract symptoms COMPARISON: 09/18/2023 TECHNIQUE: AP view of the abdomen. FINDINGS: Previously seen right nephroureteral stent has been removed. Multiple calcified stones are again seen throughout both kidneys. There is a large calcified stone in the right paraspinal soft tissues at the level of the L3 likely within the proximal ureter. This is grossly unchanged in position compared to the prior exams. There are multiple additional calcifications along the right paraspinal soft tissues extending more inferiorly which could represent additional ureteral stones. Bowel gas pattern is unremarkable. Status post right hip total arthroplasty. Degenerative changes seen of the lumbar spine and left hip joint IMPRESSION: 1. Bilateral nephrolithiasis. 2. Large calcified stone in the right paraspinal soft tissues at the level of L3 likely within the proximal ureter. This is grossly unchanged in position compared to the prior exams. There are multiple additional calcifications along the right paraspinal soft tissues extending more inferiorly which could represent additional ureteral stones. Date of Service: 09/14/23 CT ABDOMEN AND PELVIS WITHOUT CONTRAST CLINICAL INFORMATION: History of kidney stones status post stent COMPARISON: CT abdomen pelvis 09/04/2023 TECHNIQUE: Multidetector volumetric imaging was performed from the superior aspect of the liver through the pubic symphysis. Sagittal and coronal reformatted images were obtained on the technologist's workstation. This CT examination was performed using dose optimization techniques as appropriate, variously including the following: *Automated exposure control *Adjustment of mA and/or kV according to patient size (this includes techniques or standardized protocols for targeted exams where dose is matched to indication/reason for exam; i.e. extremities or head) *Use of iterative reconstruction technique DLP: 741 mGy-cm FINDINGS: LUNG BASES: Calcified granulomas are present along with traction bronchiectasis and scarring. LIVER, GALLBLADDER, AND BILIARY TREE: The liver is normal in size, shape, and attenuation. No focal hepatic lesion or biliary ductal dilatation is present. The gallbladder is unremarkable with no evidence of radiopaque gallstones, gallbladder wall thickening, or obvious pericholecystic inflammatory changes. PANCREAS: Unremarkable. SPLEEN: Unremarkable. ADRENAL GLANDS: Unremarkable. KIDNEYS AND URETERS: On the right, a double-J internally stent is present. Multiple small intrarenal calculi are seen. There is one larger calculus at the UP junction measuring 0.8 cm. There is a 5 mm calculus adjacent to the stent in the mid ureter. Multiple nonobstructing calculi present in the left kidney. A benign left mid renal 1.0 cm Bosniak class I renal cyst is noted which requires no additional imaging or follow up. No solid renal masses are seen. BLADDER: Logan catheter is present in the bladder GASTROINTESTINAL TRACT: The small and large bowel are unremarkable. The appendix is unremarkable. ABDOMINAL WALL: Tiny periumbilical hernia contains only fat. There is a tiny left inguinal hernia seen containing only fat. LYMPH NODES: No retroperitoneal lymphadenopathy. VASCULAR: Unremarkable. PELVIC VISCERA: The prostate and seminal vesicles are unremarkable. OSSEOUS STRUCTURES: There is a right total hip prosthesis present. Marked degenerative changes are present throughout the spine with mild scoliosis convex to right. IMPRESSION: 1. Bilateral nephrolithiasis with right-sided double-J stent in place. There is a 5 mm calculus adjacent to the stent in the mid ureter. 2. Other incidental findings as described above. Assessment & Plan Assessment & Plan (1) Bilateral kidney stones: Code(s): N20.0 - Calculus of kidney Category: Medical Plan Bilateral kidney stones. Patient previously seen by another urologist and is on potassium citrate. Orders: Orders AMB Urinalysis Automated Today Z13.9 - Encounter for screening, unspecified AMB Post Void Residual by ultrasound Today N39.0 - Urinary tract infection, site not specified Coding Diagnoses Bilateral kidney stones N20.0 CPT Codes Post Residual Void - PVR CPT Code: 05908-[id number] Void Residual by ultrasound ([id number])
--- OUTSIDE RECORDS SUMMARY | 2024-02-22 13:15 | XMS_ITS ---
Author Organization Moris Yu MD Address [address] [place], [place] [id number] Care Team Providers Care Refrigerator Crater Name Role Phone Moris Yu Primary Care Provider REASON FOR VISIT Discharge summary rec'd Encounters Encounter Location Date Provider Diagnosis Moris Yu MD [address] [place], [place] [phone] 09/19/2023 Moris Yu PLAN OF TREATMENT Next Appt Details Provider Name:Moris delgadillo, 03/01/2024 08:15:00 AM, [address] [place] [address], [address], [place], [place], [phone], Provider Name:Moris delgadillo, 03/08/2024 11:00:00 AM, [address] [place] [address], [address], [place], [place], [phone],
--- OUTSIDE RECORDS SUMMARY | 2024-02-22 13:15 | XMS_ITS | Patient Health Record ---
Author Organization Moris Yu MD Address [address] [place] [phone] Care Team Providers Care Zipper Setter Chainstitch Name Role Phone Moris Yu Primary Care Provider [phone] ALLERGIES Allergen (clinical drug ingredient) Drug/Non Drug Allergy documented on EMR Reaction Allergy Type Onset Date Status Gadavist hives Drug Allergy Active azithromycin Zithromax Z-Jhonny severe diarrhea Drug Allergy Active penicillin G Penicillin G Potassium rash Drug Allergy Active Doxycycline Calcium hives Drug Allergy Active Gadolinium and/or gadolinium compound (FN) gadalinium (uncoded) hives Allergy Active RESULTS Component Value Reference Range Notes NM nicolás perf SPECT rest & str Reviewed date:03/27/2023 05:18:34 PM Interpretation: Performing Lab: Notes/Report: [address] [address] Nuclear Medicine Report Signed Patient: Erasmo Quevedo MR#: [id number] 70 : 1945 Acct:[id number] Age/Sex: 77 / M ADM Date: 03/24/23 Loc: HO.CARD Attending Dr: Joon Hopper MD Ordering Physician: oJon Hopper MD Date of Service: 03/24/23 Procedure(s): NM nicolás perf SPECT rest str Accession Number(s): [id number] cc: Moris Yu MD; Joon Hopper MD Lexiscan Myocardial perfusion study Indication: Shortness of breath, assess for coronary disease and ischemia Technique: The patient was brought in for a Lexiscan perfusion study on 03/24/2023 and was injected 0.4 mg of Lexiscan intravenously. Within a minute of this injection 35 mCi of sestamibi was given intravenously. Images were obtained using the SPECT gamma camera interlaced with the gating device. Images were obtained in supine position. Resting perfusion study was performed on 03/27/2023. Patient was administered 35 mCi of sestamibi intravenously at rest. Images were then obtained in supine position. Images were processed with the software and compared side to side in short axis, horizontal long axis and vertical long axis views. Total DLP 168mGy-cm. Findings: Raw acquisition reviewed. The stress perfusion study showed mildly diminished tracer uptake in the distal part of lateral wall. With CT attenuation correction, there is significant improvement suggestive of soft tissue attenuation artifact. The gated study shows diminished LV systolic function with calculated LVEF of 42%. LV cavity is normal in size. The gated study shows globally reduced wall thickening and contraction of segments. Resting study shows mildly reduced tracer uptake in the distal part of inferolateral wall. There is improvement with CT attenuation correction suggestive of possibly diaphragmatic attenuation artifact. Gating at rest reveals normal wall motion with ejection fraction at 45%. The findings are consistent with fixed distal lateral defect suspected to be from attenuation artifact. NM/NM nicolás perf SPECT rest str Impression: 1. Myocardial perfusion imaging study shows no clear evidence of any ischemia or infarction. Probably normal myocardial perfusion. 2. Gated LVEF is 42% during stress and 45% during rest. Correlate with echocardiogram. 3. Transient ischemic dilatation not present. EKG component of the test reported separately. Dictated By: Osmar Traore MD Signed By: <Electronically signed by Osmar Traore MD in OV> 03/27/23 1458 DD/ 1245 TD/TT: Tinning Equipment Tender: CT chest wo con Reviewed date:06/25/2023 05:49:35 PM Interpretation: Performing Lab: Notes/Report: [address] [address] [address] Scan Report Signed Patient: Erasmo Quevedo MR#: [id number] 70 : 1945 Acct:[id number] Age/Sex: 78 / M ADM Date: 06/19/23 Loc: HO.CT Attending Dr: Sebastian Patricia MD Ordering Physician: Sebastian Patricia MD Date of Service: 06/19/23 Procedure(s): CT chest wo IV con Accession Number(s): [id number] cc: Moris Yu MD; Sebastian Patricia MD EXAMINATION: CT CHEST WITHOUT CONTRAST CLINICAL INFORMATION: Pulmonary nodules. COMPARISON: CT chest 07/20/2020. TECHNIQUE: Multidetector volumetric CT imaging of the chest was done. Axial MIP volume rendering provided. Sagittal and coronal reformatted images were obtained. This CT examination was performed using dose optimization techniques as appropriate, variously including the following: *Automated exposure control *Adjustment of mA and/or kV according to patient size (this includes techniques or standardized protocols for targeted exams where dose is matched to indication/reason for exam; i.e. extremities or head) *Use of iterative reconstruction technique DLP: 322 mGy-cm FINDINGS: LUNGS: Again seen are numerous bilateral pulmonary nodules many of which have associated calcification. Rich images of most have been saved. When comparison is made to the 07/20/2020 study there has been no significant or meaningful interval change. Some traction bronchiectasis is present at the lung bases, most marked in the right lower lobe medially. MEDIASTINUM: Heart size is normal. Again seen is mediastinal and bilateral hilar lymphadenopathy with the majority of nodes with calcification unchanged when compared to the 07/20/2020 study. CORONARY ARTERY CALCIFICATION: Extensive. PLEURA: There is no pleural effusion. No pleural mass or thickening. AXILLA: No lymphadenopathy. UPPER ABDOMEN: Unremarkable. OSSEOUS STRUCTURES: Mild degenerative changes. No bony destructive lesions. CT/CT chest wo IV con IMPRESSION: Stable appearance of the chest with numerous bilateral pulmonary nodules and mediastinal and hilar lymphadenopathy. The majority of the nodules and lymph nodes contain calcification. 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 Fleischner guidelines were followed. Dictated By: Serjio Torres MD Signed By: <Electronically signed by Serjio Torres MD in OV> 06/24/23 1154 DD/ 1042 TD/TT: Tinning Equipment Tender: SLOANE Adler Reviewed date:07/14/2023 08:13:36 PM Interpretation: Performing Lab:[facility], [address] [place] [phone] Notes/Report: Ebenezer Adler See Note Specimen held untested for 24 hours; Call to request Chemistry testing. Liver Panel Reviewed date:07/14/2023 08:11:47 PM Interpretation: Performing Lab:[facility], [address] [place] [phone] Notes/Report: Bilirubin Total 1.0 0.0-1.0 mg/dL Bilirubin Direct 0.4 0.0-0.5 mg/dL Aspartate Amino Transferase 23 5-37 U/L Alanine Aminotransferase 20 0-40 U/L Total Protein 7.5 6.5-8.0 g/dL Albumin Level 3.8 3.5-5.0 g/dL Alkaline Phosphatase 63 39-117 U/L Lipid Panel with Reflex Reviewed date:07/14/2023 08:11:57 PM Interpretation: Performing Lab:[facility], [address] [place] [phone] Notes/Report: Triglycerides 97 <150 mg/dL Desirable Triglyceride: less than 150 mg/dL Borderline High Triglyceride 150-199 mg/dL High Triglyceride: 200-499 mg/dL Very High Triglyceride: greater than or equal to 5OO mg/dL Cholesterol 114 <200 mg/dL Desirable Cholesterol: less than 200 mg/dL Borderline High Cholesterol: 200-239 mg/dL High Cholesterol: greater than 239 mg/dL LDL Cholesterol Calculated 53 <100 mg/dL Desirable LDL: less than 100 mg/dL Near Optimal/Above Optimal LDL: 110-129 mg/dL Borderline High LDL: 130-159 mg/dL High LDL: 160-189 mg/dL Very High LDL: greater than or equal to 190 mg/dL HDL Cholesterol 42 >40 mg/dL Desirable HDL: greater than 40 mg/dL Note: This HDL assay may give artificially low results in patients with liver disease. Glucose, Whole Blood Reviewed date:08/21/2023 06:52:52 AM Interpretation: Performing Lab:[facility], [address] [place] [phone] Notes/Report: Glucose, Whole Blood 117 60-115 mg/dL METER # : [id number] Urine Culture Reviewed date:08/22/2023 12:41:19 PM Interpretation: Performing Lab:[facility], [address] [place] [phone] Notes/Report: Urine Culture No growth. UA ClnCatch+Micro w/rflx Cul t Reviewed date:08/22/2023 04:59:33 PM Interpretation: Performing Lab:[facility], [address] [place] [phone] Notes/Report: Urine, Catheterized Color Urine Dark Yellow Appearance Urine Cloudy PH 6.5 5.0-9.0 Glucose Urine UA Negative Negative mg/dL Urine Blood Large (3+) Negative Specific Mcdermott - Urine 1.025 1.005-1.025 Urine Protein Trace Neg-Trace mg/dL Urine Ketones Trace Negative mg/dL Nitrite Urine Negative Negative Leukocyte Esterase Urine Small (1+) Negative RBC Urine >20 0-2 /HPF WBC Urine 6-10 0-5 /HPF Squamous Epithelial Cell Urine 0-2 0-2 /HPF Bacteria Urine None Seen None Seen Hyaline Casts Urine 0-2 0-2 /LPF CT soft tissue neck w con Reviewed date:08/21/2023 06:49:40 AM Interpretation: Performing Lab: Notes/Report: [address] [address] [address] Scan Report Signed Patient: Erasmo Quevedo MR#: [id number] 70 : 1945 Acct:[id number] Age/Sex: 78 / M ADM Date: 08/20/23 Loc: HO.ED Attending Dr: Ordering Physician: Mercedes Gonzales Date of Service: 08/20/23 Procedure(s): CT soft tissue neck w IV con Accession Number(s): [id number] cc: Moris Yu MD; Mercedes Gonzales EXAMINATION: CT soft tissue neck w IV con CLINICAL INFORMATION: right sided swelling, patient had recent right sided dental extraction, now septic with significant right sided facial and neck swelling - concern for abscess. COMPARISON: None TECHNIQUE: Following the administration of 60 mL of Omnipaque 350 intravenous contrast, helical imaging was performed in the axial plane with generation of coronal and sagittal reformatted images. This CT examination was performed using dose optimization techniques as appropriate, variously including the following: * Automated exposure control * Adjustment of mA and/or kV according to patient size (this includes techniques or standardized protocols for targeted exams where dose is matched to indication/reason for exam; i.e. extremities or head) Use of iterative reconstruction technique DLP: 2178 mGy-cm FINDINGS: Absent right mandibular second premolar tooth and second molar. Small mucus retention cyst in the posterior maxillary sinus. Inferior mucoperiosteal thickening in the left maxillary sinus. No acute fracture. Streak artifact from dental amalgam limits evaluation of the soft tissues. Phlegmonous changes are seen within the right premandibular space including small foci of gas. There is marked asymmetric soft tissue edema and inflammatory stranding within the right cheek/premandibular space. No organized fluid collection. The parotid glands are homogeneous in attenuation. Submandibular glands are normal. No contour abnormality or pathologic enhancement is seen within the oral cavity or pharyngeal mucosal space. No retropharyngeal fluid collection is seen. The parapharyngeal fat is preserved. The carotid sheath vasculature opacify normally. No extra mucosal soft tissue mass or fluid collection is seen. No suspicious cervical lymph nodes are identified by size criteria, enhancement characteristics, or morphology. The thyroid gland appears normal. Multifocal nodular opacities in the visualized lung apices. The imaged portions of the brain and orbits appear within normal limits. Mild cervical spondylosis. There are no destructive lesions within the osseous structures. CT/CT soft tissue neck w IV con IMPRESSION: 1. Phlegmonous changes in the right premandibular space with marked asymmetric soft tissue edema and inflammatory stranding. No organized fluid collection. 2. Absent right mandibular second premolar tooth and second molar. 3. Multifocal nodular opacities in the visualized lung apices, likely infectious/inflammatory in etiology. Dictated By: Christy Klein Signed By: <Electronically signed by Christy Klein in OV> 08/20/232051 DD/ 30 TD/TT: Tinning Equipment Tender: CT head/brain wo con Reviewed date:08/21/2023 06:50:20 AM Interpretation: Performing Lab: Notes/Report: [address] [address] [address] Scan Report Signed Patient: Erasmo Quevedo MR#: [id number] 70 : 1945 Acct:[id number] Age/Sex: 78 / M ADM Date: 08/20/23 Loc: HO.ED Attending Dr: Ordering Physician: Mercedes Gonzales Date of Service: 08/20/23 Procedure(s): CT head/brain wo IV con Accession Number(s): [id number] cc: Moris Yu MD; Mercedes Gonzales EXAMINATION: CT head/brain wo IV con CLINICAL INFORMATION: Patient more altered than baseline COMPARISON: CT head 08/19/2022 TECHNIQUE: Contiguous axial imaging was performed from the skull base to vertex without intravenous contrast. This CT examination was performed using dose optimization techniques as appropriate, variously including the following: * Automated exposure control * Adjustment of mA and/or kV according to patient size (this includes techniques or standardized protocols for targeted exams where dose is matched to indication/reason for exam; i.e. extremities or head) * Use of iterative reconstruction technique DLP: 773 mGy-cm. FINDINGS: There is no evidence of acute intracranial hemorrhage or territorial infarction. Ferreira to white matter differentiation is well preserved. No abnormal mass effect or midline shift is seen. No extra-axial fluid collections are identified. No hydrocephalus. Proportional prominence of the ventricles and sulcal spaces is consistent with moderate volume loss. Patchy periventricular and deep white matter hypoattenuation is consistent with mild small vessel ischemic changes. The cerebellar tonsils are well positioned. No acute osseous or soft tissue abnormality. Visualized portions of the orbits are unremarkable. Mild mucoperiosteal thickening in the left maxillary sinus. Remaining visualized paranasal sinuses and mastoid air cells are well-aerated. CT/CT head/brain wo IV con IMPRESSION: 1. No acute intracranial pathology. No significant interval change compared to 08/16/2022. 2. Chronic small vessel ischemic disease and volume loss. Dictated By: Christy Klein Signed By: <Electronically signed by Christy Klein in OV> 08/20/232036 DD/ 29 TD/TT: Tinning Equipment Tender: CT facial bones wo con Reviewed date:08/21/2023 06:51:02 AM Interpretation: Performing Lab: Notes/Report: [address] [address] [address] Scan Report Signed Patient: Erasmo Quevedo MR#: [id number] 70 : 1945 Acct:[id number] Age/Sex: 78 / M ADM Date: 08/20/23 Loc: HO.ED Attending Dr: Ordering Physician: Mercedes Gonzales Date of Service: 08/20/23 Procedure(s): CT facial bones wo IV con Accession Number(s): [id number] cc: Moris Yu MD; Mercedes Gonzales EXAMINATION: CT FACIAL BONES WITHOUT CONTRAST CLINICAL INFORMATION: Swelling COMPARISON: CT head and neck exams from the same day TECHNIQUE: Noncontrast multidetector helical imaging was performed through the facial bones. Coronal and sagittal reformatted images were created. This CT examination was performed using dose optimization techniques as appropriate, variously including the following: *Automated exposure control *Adjustment of mA and/or kV according to patient size (this includes techniques or standardized protocols for targeted exams where dose is matched to indication/reason for exam; i.e. extremities or head) *Use of iterative reconstruction technique DLP: 1432 mGy-cm FINDINGS: There is redemonstration of phlegmonous changes around the right aspect of the mandible as seen on recent soft tissue neck CT. No definite fluid collection is seen, though evaluation for this is limited in the absence of intravenous contrast. Evaluation of this region is also limited due to streak artifact from dental hardware. Redemonstrated sequelae of right-sided mandibular tooth extraction. No acute maxillofacial fractures are seen. Moderate mucosal thickening of the left maxillary sinus. Mild mucosal thickening of the right maxillary sinus. Slight mucosal thickening of the bilateral ethmoid air cells. Frontal and sphenoid sinuses appear well-aerated The mandibular condyles are well-seated in the condylar fossa. Mastoid air cells are well-aerated. The orbits demonstrate a grossly normal appearance bilaterally. The globes are intact, and there are no suspicious findings to suggest retrobulbar hemorrhage. Visualized portions of the brain parenchyma are unremarkable. Degenerative changes noted in the partially visualized cervical spine. CT/CT facial bones wo IV con IMPRESSION: Redemonstration of phlegmonous changes around the right aspect of the mandible as seen on recent soft tissue neck CT. No definite fluid collection is seen, though evaluation for this is limited in the absence of intravenous contrast and streak artifact from dental hardware. Dictated By: Erasmo Eldridge MD Signed By: <Electronically signed by Erasmo Eldridge MD in OV> 08/20/232302 DD/ 42 TD/TT: Tinning Equipment Tender: TH US abdomen limited Reviewed date:08/21/2023 06:51:42 AM Interpretation: Performing Lab: Notes/Report: [address] [address] Ultrasound Report Signed Patient: Erasmo Quevedo MR#: [id number] 70 : 1945 Acct:[id number] Age/Sex: 78 / M ADM Date: 08/20/23 Loc: HO.ED Attending Dr: Ordering Physician: Mercedes Gonzales Date of Service: 08/20/23 Procedure(s): US abdomen limited Accession Number(s): [id number] cc: Moris Yu MD; Mercedes Gonzales EXAMINATION: US ABDOMEN LIMITED CLINICAL INFORMATION: Elevated Bilirubin, septic COMPARISON: CT abdomen/pelvis 10/29/2018 TECHNIQUE: Real-time imaging of the right upper quadrant abdominal viscera. FINDINGS: PANCREAS: Obscured from visualization by overlying bowel gas. LIVER: Evaluation is limited due to patient body habitus. The visualized liver is normal in size. The liver contour is normal. There is diffuse mildly increased liver parenchymal echogenicity, consistent with hepatic steatosis. No focal hepatic lesion. There is no intrahepatic biliary duct dilatation seen. GALLBLADDER: The gallbladder is physiologically distended without evidence of stones, sludge, polyps, wall thickening or pericholecystic fluid. COMMON BILE DUCT: Normal in caliber measuring 0.5 cm in diameter. FREE FLUID: None. US/US abdomen limited IMPRESSION: Mild hepatic steatosis. Dictated By: Christy Klein Signed By: <Electronically signed by Christy Klein in OV> 08/20/232006 DD/ 99 TD/TT: Tinning Equipment Tender: XR chest 1V Reviewed date:08/21/2023 06:52:43 AM Interpretation: Performing Lab: Notes/Report: [address] [address] XRay Report Signed Patient: Erasmo Quevedo MR#: [id number] 70 : 1945 Acct:[id number] Age/Sex: 78 / M ADM Date: 08/20/23 Loc: HO.ED Attending Dr: Ordering Physician: Mercedes Gonzales Date of Service: 08/20/23 Procedure(s): XR chest 1V Accession Number(s): [id number] cc: Moris Yu MD; Mercedes Gonzales EXAMINATION: XR CHEST CLINICAL INFORMATION: Hypoxia sepsis COMPARISON: Chest radiograph from 06/29/2020 TECHNIQUE: Frontal view of the chest was obtained. FINDINGS: Bilateral pulmonary nodules are better appreciated on prior cross-sectional imaging. Bilateral low lung volume. Interstitial prominence. Trace bilateral pleural effusions. No pneumothorax. Trachea is midline. Cardiac mediastinal silhouette is mildly enlarged. Osseous structures are intact. Soft tissues are unremarkable. XR/XR chest 1V IMPRESSION: 1. Bilateral pulmonary nodules are better appreciated on prior cross-sectional imaging. 2. Bilateral low lung volume. 3. Interstitial prominence. 4. Trace bilateral pleural effusions. Dictated By: Rohan Vega MD Signed By: <Electronically signed by Rohan Vega MD in OV> 08/20/231931 DD/ 43 TD/TT: Tinning Equipment Tender: Complete Blood Count no Diff Reviewed date:08/21/2023 05:13:39 PM Interpretation: Performing Lab:[facility], [address] [place] [phone] Notes/Report: White Blood Count 10.3 4.8-10.8 X10*3/uL Red Blood Count 2.96 4.60-5.80 X10*6/uL Hemoglobin 9.8 14.0-18.0 g/dl Hematocrit 30.2 42.0-52.0 % Mean Corpuscular Volume 102.0 80.0-98.0 fL Mean Corpuscular Hemoglobin 33.1 27.0-33.0 pg Mean Corpuscular HGB Conc 32.5 31.0-36.0 g/dl Red Cell Distribution Width 13.7 11.0-16.0 % Platelet Count 113 160-400 X10*3/uL Mean Platelet Volume 10.9 9.4-12.4 fL NRBC Pct Auto 0.0 0.0-0.2 /100WBC NRBC Abs Auto 0.000 0.0-0.012 X10*3/uL Complete Blood Count Auto Di ff Reviewed date:08/21/2023 06:48:20 AM Interpretation: Performing Lab:[facility], [address] [place] [phone] Notes/Report: White Blood Count 10.0 4.8-10.8 X10*3/uL Red Blood Count 2.88 4.60-5.80 X10*6/uL Hemoglobin 9.6 14.0-18.0 g/dl Hematocrit 29.3 42.0-52.0 % Mean Corpuscular Volume 101.7 80.0-98.0 fL Mean Corpuscular Hemoglobin 33.3 27.0-33.0 pg Mean Corpuscular HGB Conc 32.8 31.0-36.0 g/dl Red Cell Distribution Width 13.7 11.0-16.0 % Platelet Count 103 160-400 X10*3/uL Mean Platelet Volume 9.8 9.4-12.4 fL Neutrophils Percent Auto 78.3 45-73 % Imm Gran Pct Auto 0.7 0.0-0.4 % Lymphocytes Percent Auto 10.3 20-40 % Monocytes Percent Auto 10.1 2-11 % Eosinophils Percent Auto 0.3 0-4 % Basophils Percent Auto 0.3 0-2 % NRBC Pct Auto 0.0 0.0-0.2 /100WBC Neutrophils Absolute Auto 7.9 2.0-8.3 x10*3/u L Imm Gran Abs Auto 0.07 0.00-0.03 X10*3/uL Lymphocytes Absolute Auto 1.0 1.2-4.9 X10*3/u L Monocytes Absolute Auto 1.0 0.1-1.2 X10*3/uL Eosinophils Absolute Auto 0.0 0.0-0.4 X10*3/u L Basophils Absolute Auto 0.0 0.0-0.2 X10*3/uL NRBC Abs Auto 0.000 0.0-0.012 X10*3/uL Comprehensive Met. Panel Reviewed date:08/21/2023 06:52:11 AM Interpretation: Performing Lab:[facility], [address] [place] [phone] Notes/Report: Sodium 138 135-145 mmol/L Potassium 4.3 3.3-5.1 mmol/L Chloride 109 96-108 mmol/L Carbon Dioxide 21 22-29 mmol/L Anion Gap 12 12-20 Blood Urea Nitrogen 22 9-16 mg/dL Creatinine 1.46 0.5-1.4 mg/dL Creatinine Clr Calc Pharmacy 51.1 eGFR (calculated from the MDRD study equation) and eCrCl (calculated from the Cockcroft-Gault equation) are based on different parameters and may not yield comparable results. If eCrCl result is absurd, please check patient's height/weight. Estimated Glomerular Filt Rate 47 NOTE: For -[place] individuals, multiply the result by 1.210. Chronic Kidney Disease: Estimated GFR < 60 mL/min/1.73m2 Severe Kidney Disease: Estimated GFR < 15 mL/min/1.73m2 Glucose Random 102 60-115 mg/dL Calcium 8.5 8.4-10.2 mg/dL Bilirubin Total 1.8 0.0-1.0 mg/dL Aspartate Amino Transferase 13 5-37 U/L Alanine Aminotransferase 10 0-40 U/L Total Protein 6.3 6.5-8.0 g/dL Albumin Level 3.7 3.5-5.0 g/dL Alkaline Phosphatase 44 39-117 U/L Phosphorus Reviewed date:08/21/2023 06:48:29 AM Interpretation: Performing Lab:[address] [phone] Notes/Report: Phosphorus 2.6 2.7-4.5 mg/dL Magnesium Reviewed date:08/21/2023 06:47:56 AM Interpretation: Performing Lab:[address] [phone] Notes/Report: Magnesium 1.9 1.6-2.6 mg/dL Venous Blood Gases - POC Reviewed date:08/21/2023 06:47:48 AM Interpretation: Performing Lab:[address] [phone] Notes/Report: VBG pH 7.40 7.32-7.43 METER #: [id number] additional_comment: Ganga mckinney VBG pCO2 37 METER #: [id number] additional_comment: Ganga mckinney VBG pO2 26 METER #: [id number] additional_comment: Ganga mckinney VBG Base Excess -0.9 METER #: [id number] additional_comment: Ganga mckinney VBG HCO3 23 22-26 mmol/L METER #: [id number] additional_comment: Ganga mckinney VBG O2 % Saturation 36.0 METER #: [id number] additional_comment: Ganga calvozgayathri CDiff Gene PCR Reviewed date:08/22/2023 12:32:10 PM Interpretation: Performing Lab:[facility], [address] [place] [phone] Notes/Report: CALLED ICU 1245 LEAT CDiff Gene PCR NEGATIVE Negative If C. difficile strongly suspected despite one negative test, a second test may be sent vs. empiric treatment for C. difficile infection. Complete Blood Count no Diff Reviewed date:08/22/2023 12:42:16 PM Interpretation: Performing Lab:[facility], [address] [place] [phone] Notes/Report: White Blood Count 8.4 4.8-10.8 X10*3/uL Red Blood Count 3.02 4.60-5.80 X10*6/uL Hemoglobin 10.1 14.0-18.0 g/dl Hematocrit 31.3 42.0-52.0 % Mean Corpuscular Volume 103.6 80.0-98.0 fL Mean Corpuscular Hemoglobin 33.4 27.0-33.0 pg Mean Corpuscular HGB Conc 32.3 31.0-36.0 g/dl Red Cell Distribution Width 13.6 11.0-16.0 % Platelet Count 108 160-400 X10*3/uL NRBC Pct Auto 0.0 0.0-0.2 /100WBC NRBC Abs Auto 0.000 0.0-0.012 X10*3/uL Basic Metabolic Panel Reviewed date:08/22/2023 12:40:03 PM Interpretation: Performing Lab:[facility], [address] [place] [phone] Notes/Report: Sodium 140 135-145 mmol/L Potassium 3.8 3.3-5.1 mmol/L Chloride 113 96-108 mmol/L Carbon Dioxide 18 22-29 mmol/L Anion Gap 13 12-20 Blood Urea Nitrogen 27 9-16 mg/dL Creatinine 1.52 0.5-1.4 mg/dL Creatinine Clr Calc Pharmacy 49.1 eGFR (calculated from the MDRD study equation) and eCrCl (calculated from the Cockcroft-Gault equation) are based on different parameters and may not yield comparable results. If eCrCl result is absurd, please check patient's height/weight. Estimated Glomerular Filt Rate 45 NOTE: For -Ugand[place] individuals, multiply the result by 1.210. Chronic Kidney Disease: Estimated GFR < 60 mL/min/1.73m2 Severe Kidney Disease: Estimated GFR < 15 mL/min/1.73m2 Glucose Random 92 60-115 mg/dL Calcium 9.2 8.4-10.2 mg/dL Phosphorus Reviewed date:08/22/2023 12:38:52 PM Interpretation: Performing Lab:[address] [address] Notes/Report: Phosphorus 3.0 2.7-4.5 mg/dL Magnesium Reviewed date:08/22/2023 12:32:17 PM Interpretation: Performing Lab:[address] [address] Notes/Report: Magnesium 2.1 1.6-2.6 mg/dL XR chest 1V Reviewed date:08/22/2023 12:39:44 PM Interpretation: Performing Lab: Notes/Report: [address] [address] XRay Report Signed Patient: Erasmo Quevedo MR#: [id number] 70 : 1945 Acct:[id number] Age/Sex: 78 / M ADM Date: 08/21/23 Loc: [facility] 470-[address]: Pat Patricia NP Ordering Physician: Pat Patricia NP Date of Service: 08/22/23 Procedure(s): XR chest 1V Accession Number(s): [id number] cc: Moris Yu MD; Pat Patricia NP EXAMINATION: XR CHEST CLINICAL INFORMATION: Hypoxia COMPARISON: Chest 08/20/2023 TECHNIQUE: AP upright portable view of the chest was obtained. 10:24 AM FINDINGS: The patient is rotated. Low lung volumes. There is increased patchy opacity in the left upper lobe and left lower lobe/lingula. There is definite increased patchy opacity in the right lower lobe/right middle lobe. Again noted is slight streaky opacity in the right upper lobe. The cardiomediastinal silhouette is stable. Probable small right pleural effusion. A few small pulmonary nodules are noted. No acute osseous abnormality. There is marked degenerative change of the left glenohumeral joint. XR/XR chest 1V IMPRESSION: 1. Worsening bilateral pneumonia. 2. Probable small right pleural effusion. 3. A few small pulmonary nodules are noted, better seen on chest CT scan Dictated By: Aura Timmons MD Signed By: <Electronically signed by Aura Timmons MD in OV> 08/22/23 1152 DD/ 1030 TD/TT: Tinning Equipment Tender: Complete Blood Count no Diff Reviewed date:08/23/2023 08:05:06 PM Interpretation: Performing Lab:[address] [address] Notes/Report: White Blood Count 7.5 4.8-10.8 X10*3/uL Red Blood Count 3.16 4.60-5.80 X10*6/uL Hemoglobin 10.7 14.0-18.0 g/dl Hematocrit 31.8 42.0-52.0 % Mean Corpuscular Volume 100.6 80.0-98.0 fL Mean Corpuscular Hemoglobin 33.9 27.0-33.0 pg Mean Corpuscular HGB Conc 33.6 31.0-36.0 g/dl Red Cell Distribution Width 13.7 11.0-16.0 % Platelet Count 143 160-400 X10*3/uL Mean Platelet Volume 10.5 9.4-12.4 fL NRBC Pct Auto 0.0 0.0-0.2 /100WBC NRBC Abs Auto 0.000 0.0-0.012 X10*3/uL Basic Metabolic Panel Reviewed date:08/23/2023 08:05:30 PM Interpretation: Performing Lab:[address] [address] Notes/Report: Sodium 142 135-145 mmol/L Potassium 3.5 3.3-5.1 mmol/L Chloride 113 96-108 mmol/L Carbon Dioxide 20 22-29 mmol/L Anion Gap 13 12-20 Blood Urea Nitrogen 27 9-16 mg/dL Creatinine 1.56 0.5-1.4 mg/dL Creatinine Clr Calc Pharmacy 48.0 eGFR (calculated from the MDRD study equation) and eCrCl (calculated from the Cockcroft-Gault equation) are based on different parameters and may not yield comparable results. If eCrCl result is absurd, please check patient's height/weight. Estimated Glomerular Filt Rate 43 NOTE: For -Ugand[place] individuals, multiply the result by 1.210. Chronic Kidney Disease: Estimated GFR < 60 mL/min/1.73m2 Severe Kidney Disease: Estimated GFR < 15 mL/min/1.73m2 Glucose Random 97 60-115 mg/dL Calcium 9.2 8.4-10.2 mg/dL XR chest 1V Reviewed date:08/26/2023 06:24:12 PM Interpretation: Performing Lab: Notes/Report: [address] [address] XRay Report Signed Patient: Erasmo Quevedo MR#: [id number] 70 : 1945 Acct:[id number] Age/Sex: 78 / M ADM Date: 08/21/23 Loc: [facility] 468-[address]: Tamera BARRON Ordering Physician: Tamera Watts Date of Service: 08/25/23 Procedure(s): XR chest 1V Accession Number(s): [id number] cc: Tamera Watts; Moris Yu MD EXAMINATION: XR CHEST CLINICAL INFORMATION: Follow-up pneumonia. COMPARISON: Prior chest radiographs, most recently 08/22/2023; CT chest dated 06/17/2023.. TECHNIQUE: Frontal view of the chest was obtained. FINDINGS: The heart, great vessels, pulmonary vasculature and mediastinum are stable. There are persistent bilateral patchy opacities, with some interim improvement in the right upper lobe. A small right pleural effusion is questioned. There is no pneumothorax. Multiple calcified lymph nodes are redemonstrated. There are degenerative changes of the shoulders. No acute osseous abnormality is seen. XR/XR chest 1V IMPRESSION: Findings are consistent with persistent mild bilateral pneumonia and a small right pleural effusion. Dictated By: Lit Douglas MD Signed By: <Electronically signed by Lit Douglas MD in OV> 08/25/23 1901 DD/ 0600 TD/TT: Tinning Equipment Tender: BOOM Dugan Acid Reviewed date:09/04/2023 04:43:19 PM Interpretation: Performing Lab:[facility], [address] [place] [phone] Notes/Report: Lactic Acid 1.5 0.5-2.0 mmol/L Urine Culture Reviewed date:09/05/2023 01:04:25 PM Interpretation: Performing Lab:[facility], [address] [place] [phone] Notes/Report: Urine Culture No growth. Blood Culture (First) Reviewed date:09/10/2023 01:28:56 PM Interpretation: Performing Lab:[facility], [address] [place] [phone] Notes/Report: Blood Culture (First) No growth after 5 days. Blood Culture (Second) Reviewed date:09/10/2023 01:28:42 PM Interpretation: Performing Lab:[facility], [address] [place] [phone] Notes/Report: Blood Culture (Second) No growth after [address] chest wo con Reviewed date:09/04/2023 04:44:13 PM Interpretation: Performing Lab: Notes/Report: [address] [address] [address] Scan Report Signed Patient: Erasmo Quevedo MR#: [id number] 70 : 1945 Acct:[id number] Age/Sex: 78 / M ADM Date: 09/04/23 Loc: 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 Constipation. Shortness of breath. History of sarcoidosis. COMPARISON: CT chest June 19, 2023. CT abdomen pelvis October 29, 2018 TECHNIQUE: Multidetector volumetric CT imaging of the chest, abdomen and pelvis was obtained . Coronal, Sagittal reformatted images preformed at the CT scanner. [This CT examination was performed using dose optimization techniques as appropriate, variously including the following: *Automated exposure control *Adjustment of mA and/or kV according to patient size (this includes techniques or standardized protocols for targeted exams where dose is matched to indication/reason for exam; i.e. extremities or head) *Use of iterative reconstruction technique] DLP: 1279 mGy-cm. FINDINGS: CT CHEST: Lungs: No significant change in bilateral airspace opacities since prior CT of June 19, 2023. Stable bilateral pulmonary nodules many of which are calcified. Patchy parenchymal airspace disease with associated calcifications in the posterior upper and lower lobes and perihilar lung. Stable mild bronchiectasis at lung bases with interstitial thickening lower lobes. No acute airspace disease. Mediastinum: Heart size is normal. No pericardial effusion. Numerous calcified lymph nodes redemonstrated in the mediastinum and [place] bilaterally. No new bulky lymphadenopathy. Coronary arteries: Heavy volume of coronary calcification. Pleura: No pleural effusion. Axilla: No lymphadenopathy. CT ABDOMEN AND PELVIS: Liver, Gallbladder and Biliary Tree: The liver is normal in size, shape, and attenuation. No focal hepatic lesion or biliary ductal dilatation is present. The gallbladder is unremarkable with no evidence of radiopaque gallstones, gallbladder wall thickening, or obvious pericholecystic inflammatory changes. Pancreas: Fatty atrophy of the pancreas. No acute abnormality. Spleen: Spleen normal in size and contour. No focal lesion. Adrenal Glands: Adrenal glands are normal in size. No focal mass. Kidneys and Ureters: Right kidney: Mild fullness of the right renal pelvis and proximal ureter. There is a stone in the proximal right ureter measuring 1.4 cm in length 0.6 cm in width. This is at the L4-L5 disc level. There is a 1.3 cm stone in the right renal pelvis. Density measurement 916 Hounsfield units. This stone is 11.4 cm from the posterior skin line. Multiple additional nonobstructive calculi in the right kidney. There are at least 10additional stones range in size from 1 cm to 3 mm. Left kidney: There is no hydronephrosis or hydroureter. There are least 6 nonobstructive calculi in the left kidney. There is a 2.8 cm cortical cyst upper pole of left kidney. No follow-up imaging is recommended for simple renal cyst. Bladder: Unremarkable. Gastrointestinal Tract: No acute abnormality. There is no bowel wall thickening /edema. There is no bowel obstruction. There is a moderate volume of stool in the colon. The appendix is normal . The small bowel loops are unremarkable. The stomach is normal. There is no hiatal hernia. Mesentery: No focal inflammation. No free fluid. No free air. Abdominal Wall: No significant hernia is appreciated. Lymph Nodes: Normal. Vascular: Vascular calcifications throughout the abdomen and pelvis. There is no aneurysm of aorta. Pelvic Viscera: Unremarkable. Osseous Structures: Status post right hip replacement. 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 CT/CT chest wo IV con IMPRESSION: 1. Mild hydronephrosis of right kidney due to an obstructing stone in the proximal right ureter. There is a 1.3 cm stone in the right renal pelvis. There are multiple additional nonobstructive bilateral renal calculi. 2. Stable bilateral airspace disease. Multiple calcified and noncalcified pulmonary nodules. Calcified mediastinal and hilar lymph nodes consistent with prior granulomatous disease. No new acute abnormality of the chest. 3. No acute abnormality of the abdomen or the pelvis. There is a moderate volume of stool in the colon. There is no acute abnormality of the bowel. 4. Status post right hip replacement. 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 Dictated By: Yasmani Benedict MD Signed By: <Electronically signed by Yasmani Benedict MD in OV> 09/04/23 1621 DD/ 1515 TD/TT: Tinning Equipment Tender: TANIKA CT abdomen pelvis wo con Reviewed date:09/04/2023 04:44:58 PM Interpretation: Performing Lab: Notes/Report: [address] [address] [address] Scan Report Signed Patient: Erasmo Quevedo MR#: [id number] 70 : 1945 Acct:[id number] Age/Sex: 78 / M ADM Date: 09/04/23 Loc: [facility]-[address]: Pat Patricia NP Ordering Physician: Keesha Stein Date of Service: 09/04/23 Procedure(s): CT abdomen pelvis wo IV con Accession Number(s): [id number] cc: Moris Yu MD; Keesha Stein EXAMINATION: CT CHEST, ABDOMEN AND PELVIS withoutCONTRAST CLINICAL INFORMATION: Abdominal pain. Constipation. Shortness of breath. History of sarcoidosis. COMPARISON: CT chest June 19, 2023. CT abdomen pelvis October 29, 2018 TECHNIQUE: Multidetector volumetric CT imaging of the chest, abdomen and pelvis was obtained . Coronal, Sagittal reformatted images preformed at the CT scanner. [This CT examination was performed using dose optimization techniques as appropriate, variously including the following: *Automated exposure control *Adjustment of mA and/or kV according to patient size (this includes techniques or standardized protocols for targeted exams where dose is matched to indication/reason for exam; i.e. extremities or head) *Use of iterative reconstruction technique] DLP: 1279 mGy-cm. FINDINGS: CT CHEST: Lungs: No significant change in bilateral airspace opacities since prior CT of June 19, 2023. Stable bilateral pulmonary nodules many of which are calcified. Patchy parenchymal airspace disease with associated calcifications in the posterior upper and lower lobes and perihilar lung. Stable mild bronchiectasis at lung bases with interstitial thickening lower lobes. No acute airspace disease. Mediastinum: Heart size is normal. No pericardial effusion. Numerous calcified lymph nodes redemonstrated in the mediastinum and [place] bilaterally. No new bulky lymphadenopathy. Coronary arteries: Heavy volume of coronary calcification. Pleura: No pleural effusion. Axilla: No lymphadenopathy. CT ABDOMEN AND PELVIS: Liver, Gallbladder and Biliary Tree: The liver is normal in size, shape, and attenuation. No focal hepatic lesion or biliary ductal dilatation is present. The gallbladder is unremarkable with no evidence of radiopaque gallstones, gallbladder wall thickening, or obvious pericholecystic inflammatory changes. Pancreas: Fatty atrophy of the pancreas. No acute abnormality. Spleen: Spleen normal in size and contour. No focal lesion. Adrenal Glands: Adrenal glands are normal in size. No focal mass. Kidneys and Ureters: Right kidney: Mild fullness of the right renal pelvis and proximal ureter. There is a stone in the proximal right ureter measuring 1.4 cm in length 0.6 cm in width. This is at the L4-L5 disc level. There is a 1.3 cm stone in the right renal pelvis. Density measurement 916 Hounsfield units. This stone is 11.4 cm from the posterior skin line. Multiple additional nonobstructive calculi in the right kidney. There are at least 10additional stones range in size from 1 cm to 3 mm. Left kidney: There is no hydronephrosis or hydroureter. There are least 6 nonobstructive calculi in the left kidney. There is a 2.8 cm cortical cyst upper pole of left kidney. No follow-up imaging is recommended for simple renal cyst. Bladder: Unremarkable. Gastrointestinal Tract: No acute abnormality. There is no bowel wall thickening /edema. There is no bowel obstruction. There is a moderate volume of stool in the colon. The appendix is normal . The small bowel loops are unremarkable. The stomach is normal. There is no hiatal hernia. Mesentery: No focal inflammation. No free fluid. No free air. Abdominal Wall: No significant hernia is appreciated. Lymph Nodes: Normal. Vascular: Vascular calcifications throughout the abdomen and pelvis. There is no aneurysm of aorta. Pelvic Viscera: Unremarkable. Osseous Structures: Status post right hip replacement. 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 CT/CT abdomen pelvis wo IV con IMPRESSION: 1. Mild hydronephrosis of right kidney due to an obstructing stone in the proximal right ureter. There is a 1.3 cm stone in the right renal pelvis. There are multiple additional nonobstructive bilateral renal calculi. 2. Stable bilateral airspace disease. Multiple calcified and noncalcified pulmonary nodules. Calcified mediastinal and hilar lymph nodes consistent with prior granulomatous disease. No new acute abnormality of the chest. 3. No acute abnormality of the abdomen or the pelvis. There is a moderate volume of stool in the colon. There is no acute abnormality of the bowel. 4. Status post right hip replacement. 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 Dictated By: Yasmani Benedict MD Signed By: <Electronically signed by Yasmani Benedict MD in OV> 09/04/23 1621 DD/ 1515 TD/TT: Tinning Equipment Tender: TANIKA XR chest 1V Reviewed date:09/04/2023 04:46:00 PM Interpretation: Performing Lab: Notes/Report: [address] [address] XRay Report Signed Patient: Erasmo Quevedo MR#: [id number] 70 : 1945 Acct:[id number] Age/Sex: 78 / M ADM Date: 09/04/23 Loc: [facility] Attending Dr: Ordering Physician: Keesha Stein Date of Service: 09/04/23 Procedure(s): XR chest 1V Accession Number(s): [id number] cc: Moris Yu MD; Keesha Stein EXAMINATION: XR CHEST CLINICAL INFORMATION: Shortness of breath COMPARISON: None available. TECHNIQUE: Frontal view of the chest was obtained. FINDINGS: vascularity. LUNGS: Persistent extensive reticular densities are seen in bilateral lungs. Patchy alveolar densities are seen in medial left upper lobe suprahilar region. Persistent extensive calcified granulomas are seen in medial right supraclavicular chest, bilateral mediastinal and hilar calcified lymph nodes. No pneumothorax is seen. BONES: Bony skeleton is intact. XR/XR chest 1V IMPRESSION: 1. Unchanged extensive right upper chest calcified granulomas, calcified mediastinal and hilar lymphadenopathy, compatible with sarcoidosis. 3. Persistent bilateral reticular interstitial lung fibrosis, organizing pneumonia in left suprahilar region. Dictated By: Santi Moses Signed By: <Electronically signed by Santi Moses in OV> 09/04/23 1444 DD/ 1300 TD/TT: Tinning Equipment Tender: Complete Blood Count Auto Di ff Reviewed date:09/05/2023 01:08:06 PM Interpretation: Performing Lab:[facility], [address] [place] [phone] Notes/Report: White Blood Count 7.4 4.8-10.8 X10*3/uL Red Blood Count 3.77 4.60-5.80 X10*6/uL Hemoglobin 12.2 14.0-18.0 g/dl Hematocrit 36.7 42.0-52.0 % Mean Corpuscular Volume 97.3 80.0-98.0 fL Mean Corpuscular Hemoglobin 32.4 27.0-33.0 pg Mean Corpuscular HGB Conc 33.2 31.0-36.0 g/dl Red Cell Distribution Width 13.6 11.0-16.0 % Platelet Count 196 160-400 X10*3/uL Mean Platelet Volume 11.5 9.4-12.4 fL Neutrophils Percent Auto 59.3 45-73 % Imm Gran Pct Auto 0.7 0.0-0.4 % Lymphocytes Percent Auto 21.6 20-40 % Monocytes Percent Auto 16.3 2-11 % Eosinophils Percent Auto 1.6 0-4 % Basophils Percent Auto 0.5 0-2 % NRBC Pct Auto 0.0 0.0-0.2 /100WBC Neutrophils Absolute Auto 4.4 2.0-8.3 x10*3/u L Imm Gran Abs Auto 0.05 0.00-0.03 X10*3/uL Lymphocytes Absolute Auto 1.6 1.2-4.9 X10*3/u L Monocytes Absolute Auto 1.2 0.1-1.2 X10*3/uL Eosinophils Absolute Auto 0.1 0.0-0.4 X10*3/u L Basophils Absolute Auto 0.0 0.0-0.2 X10*3/uL NRBC Abs Auto 0.000 0.0-0.012 X10*3/uL Basic Metabolic Panel Reviewed date:09/05/2023 01:02:01 PM Interpretation: Performing Lab:[facility], [address] [place] [phone] Notes/Report: Sodium 139 135-145 mmol/L Potassium 3.9 3.3-5.1 mmol/L Chloride 105 96-108 mmol/L Carbon Dioxide 23 22-29 mmol/L Anion Gap 15 12-20 Blood Urea Nitrogen 24 9-16 mg/dL Creatinine 1.86 0.5-1.4 mg/dL Creatinine Clr Calc Pharmacy 38.1 eGFR (calculated from the MDRD study equation) and eCrCl (calculated from the Cockcroft-Gault equation) are based on different parameters and may not yield comparable results. If eCrCl result is absurd, please check patient's height/weight. Estimated Glomerular Filt Rate 35 NOTE: For -Ugand[place] individuals, multiply the result by 1.210. Chronic Kidney Disease: Estimated GFR < 60 mL/min/1.73m2 Severe Kidney Disease: Estimated GFR < 15 mL/min/1.73m2 Glucose Random 88 60-115 mg/dL Calcium 9.5 8.4-10.2 mg/dL Magnesium Reviewed date:09/05/2023 09:55:27 AM Interpretation: Performing Lab:[facility], [address] [place] [phone] Notes/Report: Magnesium 2.2 1.6-2.6 mg/dL FL guidance in OR Reviewed date:09/10/2023 01:29:32 PM Interpretation: Performing Lab: Notes/Report: [address] [address] Fluoroscopy Report Signed Patient: Erasmo Quevedo MR#: [id number] 70 : 1945 Acct:[id number] Age/Sex: 78 / M ADM Date: 09/04/23 Loc: [facility] 363-[address]: Pat Patricia NP Ordering Physician: Kuldip Ibarra MD Date of Service: 09/05/23 Procedure(s): FL guidance in OR Accession Number(s): [id number] cc: Kuldip Ibarra MD; Moris Yu MD EXAMINATION: XR FLUOROSCOPY WITH IMAGES CLINICAL INFORMATION: Right stent placement COMPARISON: CT abdomen pelvis on 09/04/2023 TECHNIQUE: Fluoroscopy Supervised By: Dr. Ibarra. Fluoroscopy Time: 10.9 seconds. Cumulative Dose: 2.601 mGy. DAP: 1.131 Gycm2. Images: 1. FINDINGS: There is right hydronephrosis and a ureteral stent. FL/FL guidance in OR IMPRESSION: Fluoroscopy performed in the OR. Please see operative report for additional information. Dictated By: Jeni Hart MD Signed By: <Electronically signed by Jeni Hart MD in OV> 09/09/23 1538 DD/ 1845 TD/TT: Tinning Equipment Tender: TANG Creatinine Reviewed date:09/06/2023 04:10:25 PM Interpretation: Performing Lab:[facility], [address] [place] [phone] Notes/Report: Creatinine 1.63 0.5-1.4 mg/dL Creatinine Clr Calc Pharmacy 43.4 eGFR (calculated from the MDRD study equation) and eCrCl (calculated from the Cockcroft-Gault equation) are based on different parameters and may not yield comparable results. If eCrCl result is absurd, please check patient's height/weight. Estimated Glomerular Filt Rate 41 NOTE: For -Ugand[place] individuals, multiply the result by 1.210. Chronic Kidney Disease: Estimated GFR < 60 mL/min/1.73m2 Severe Kidney Disease: Estimated GFR < 15 mL/min/1.73m2 Hold Lav - Possible Hematolo gy Reviewed date:09/07/2023 12:36:28 PM Interpretation: Performing Lab:[facility], [address] [place] [phone] Notes/Report: Hold Lav - Possible Hematology SEE NOTE Specimen will be held untested for 8 hours. Call Hematology if testing is desired. Basic Metabolic Panel Reviewed date:09/07/2023 12:37:28 PM Interpretation: Performing Lab:[facility], [address] [place] [phone] Notes/Report: Sodium 138 135-145 mmol/L Potassium 3.8 3.3-5.1 mmol/L Chloride 113 96-108 mmol/L Carbon Dioxide 16 22-29 mmol/L Anion Gap 13 12-20 Blood Urea Nitrogen 13 9-16 mg/dL Creatinine 1.21 0.5-1.4 mg/dL Creatinine Clr Calc Pharmacy 58.5 eGFR (calculated from the MDRD study equation) and eCrCl (calculated from the Cockcroft-Gault equation) are based on different parameters and may not yield comparable results. If eCrCl result is absurd, please check patient's height/weight. Estimated Glomerular Filt Rate 58 NOTE: For -Ugandan individuals, multiply the result by 1.210. Chronic Kidney Disease: Estimated GFR < 60 mL/min/1.73m2 Severe Kidney Disease: Estimated GFR < 15 mL/min/1.73m2 Glucose Random 98 60-115 mg/dL Calcium 8.7 8.4-10.2 mg/dL Lactic Acid Reviewed date:09/15/2023 10:08:39 AM Interpretation: Performing Lab:[address] [phone] Notes/Report: Lactic Acid 1.3 0.5-2.0 mmol/L Blood Culture (First) Reviewed date:09/20/2023 08:17:24 PM Interpretation: Performing Lab:[facility], [address] [place] [phone] Notes/Report: Blood Culture (First) No growth after 5 days. Blood Culture (Second) Reviewed date:09/20/2023 08:16:12 PM Interpretation: Performing Lab:[address] [address] Notes/Report: Blood Culture (Second) No growth after 5 days. GI Panel Reviewed date:09/16/2023 04:20:02 PM Interpretation: Performing Lab:[address] [address] Notes/Report: Campylobacter Not Detected Not Detect. Plesiomonas shigelloides Not Detected Not Detect. Salmonella Not Detected Not Detect. Vibrio Not Detected Not Detect. Vibrio Cholerae Not Detected Not Detect. Yersinia enterocolitica Not Detected Not Detect. E. coli EAEC Not Detected Not Detect. E. coli EPEC Not Detected Not Detect. E. coli ETEC Not Detected Not Detect. E. coli STEC Not Detected Not Detect. E. coli O157 Not applicable Not Detect. E. coli containing the O157 antigen are a subset of Shiga-like toxin-producing E. coli (STEC). Shigella sp./EIEC Not Detected Not Detect. Cryptosporidium Not Detected Not Detect. Cyclospora cayetanensis Not Detected Not Detect. Entamoeba histolytica Not Detected Not Detect. Giardia lamblia Not Detected Not Detect. Adenovirus F 40/41 Not Detected Not Detect. Astrovirus Not Detected Not Detect. Norovirus GI/GII Not Detected Not Detect. Rotavirus A Not Detected Not Detect. Sapovirus Not Detected Not Detect. All results must be correlated with clinical findings. Negative results do not exclude the possibility of gastrointestinal infection and should not be used as the sole basis for diagnosis, treatment, or other management decisions. Virus, bacteria, and parasite nucleic acid may persist in vivo independently of organism viability. Additionally, some organisms may be carried symptomatically. Detection of organism targets does not imply that the corresponding organisms are infectious or are the causative agents for clinical symptoms. There is a risk of false negative values due to the presence of sequence variants in the gene targets of the assay, amplification inhibitors in specimens, or inadequate numbers of organisms for amplification. The identification of several diarrheagenic E. coli pathotypes has historically relied upon phenotypic characteristics. This panel targets genetic determinants characteristic of most pathogenic strains, but may not detect all strains having phenotypic characteristics of a pathotype. The performance of this test has not been established for monitoring treatment of infection with any of the panel organisms. This assay is performed by Multiplexed PCR, utilizing the [employer] [address] abdomen pelvis wo con Reviewed date:09/15/2023 10:09:52 AM Interpretation: Performing Lab: Notes/Report: [place] [address] CT Scan Report Signed Patient: Erasmo Quevedo MR#: [id number] 70 : 1945 Acct:[id number] Age/Sex: 78 / M ADM Date: 09/14/23 Loc: .ED Attending Dr: Ordering Physician: Beverly Sanchez MD Date of Service: 09/14/23 Procedure(s): CT abdomen pelvis wo IV con Accession Number(s): [id number] cc: Moris Yu MD; Beverly Sanchez MD EXAMINATION: CT ABDOMEN AND PELVIS WITHOUT CONTRAST CLINICAL INFORMATION: History of kidney stones status post stent COMPARISON: CT abdomen pelvis 09/04/2023 TECHNIQUE: Multidetector volumetric imaging was performed from the superior aspect of the liver through the pubic symphysis. Sagittal and coronal reformatted images were obtained on the technologist's workstation. This CT examination was performed using dose optimization techniques as appropriate, variously including the following: *Automated exposure control *Adjustment of mA and/or kV according to patient size (this includes techniques or standardized protocols for targeted exams where dose is matched to indication/reason for exam; i.e. extremities or head) *Use of iterative reconstruction technique DLP: 741 mGy-cm FINDINGS: LUNG BASES: Calcified granulomas are present along with traction bronchiectasis and scarring. LIVER, GALLBLADDER, AND BILIARY TREE: The liver is normal in size, shape, and attenuation. No focal hepatic lesion or biliary ductal dilatation is present. The gallbladder is unremarkable with no evidence of radiopaque gallstones, gallbladder wall thickening, or obvious pericholecystic inflammatory changes. PANCREAS: Unremarkable. SPLEEN: Unremarkable. ADRENAL GLANDS: Unremarkable. KIDNEYS AND URETERS: On the right, a double-J internally stent is present. Multiple small intrarenal calculi are seen. There is one larger calculus at the UP junction measuring 0.8 cm. There is a 5 mm calculus adjacent to the stent in the mid ureter. Multiple nonobstructing calculi present in the left kidney. A benign left mid renal 1.0 cm Bosniak class I renal cyst is noted which requires no additional imaging or follow up. No solid renal masses are seen. BLADDER: Logan catheter is present in the bladder GASTROINTESTINAL TRACT: The small and large bowel are unremarkable. The appendix is unremarkable. ABDOMINAL WALL: Tiny periumbilical hernia contains only fat. There is a tiny left inguinal hernia seen containing only fat. LYMPH NODES: No retroperitoneal lymphadenopathy. VASCULAR: Unremarkable. PELVIC VISCERA: The prostate and seminal vesicles are unremarkable. OSSEOUS STRUCTURES: There is a right total hip prosthesis present. Marked degenerative changes are present throughout the spine with mild scoliosis convex to right. CT/CT abdomen pelvis wo IV con IMPRESSION: 1. Bilateral nephrolithiasis with right-sided double-J stent in place. There is a 5 mm calculus adjacent to the stent in the mid ureter. 2. Other incidental findings as described above. Fleischner guidelines were followed. Dictated By: Serjio Torres MD Signed By: <Electronically signed by Serjio Torres MD in OV> 09/14/232200 DD/ 54 TD/TT: Tinning Equipment Tender: SLOANE Complete Blood Count Auto Di ff Reviewed date:09/16/2023 04:25:25 PM Interpretation: Performing Lab:[facility], [address] [place] [phone] Notes/Report: White Blood Count 9.5 4.8-10.8 X10*3/uL Red Blood Count 3.54 4.60-5.80 X10*6/uL Hemoglobin 11.7 14.0-18.0 g/dl Hematocrit 35.0 42.0-52.0 % Mean Corpuscular Volume 98.9 80.0-98.0 fL Mean Corpuscular Hemoglobin 33.1 27.0-33.0 pg Mean Corpuscular HGB Conc 33.4 31.0-36.0 g/dl Red Cell Distribution Width 13.7 11.0-16.0 % Platelet Count 124 160-400 X10*3/uL Mean Platelet Volume 11.3 9.4-12.4 fL Neutrophils Percent Auto 76.2 45-73 % Imm Gran Pct Auto 0.7 0.0-0.4 % Lymphocytes Percent Auto 9.3 20-40 % Monocytes Percent Auto 12.4 2-11 % Eosinophils Percent Auto 1.1 0-4 % Basophils Percent Auto 0.3 0-2 % NRBC Pct Auto 0.0 0.0-0.2 /100WBC Neutrophils Absolute Auto 7.2 2.0-8.3 x10*3/u L Imm Gran Abs Auto 0.07 0.00-0.03 X10*3/uL Lymphocytes Absolute Auto 0.9 1.2-4.9 X10*3/u L Monocytes Absolute Auto 1.2 0.1-1.2 X10*3/uL Eosinophils Absolute Auto 0.1 0.0-0.4 X10*3/u L Basophils Absolute Auto 0.0 0.0-0.2 X10*3/uL NRBC Abs Auto 0.000 0.0-0.012 X10*3/uL Basic Metabolic Panel Reviewed date:09/16/2023 04:19:35 PM Interpretation: Performing Lab:[facility], [address] [place] [phone] Notes/Report: Sodium 137 135-145 mmol/L Potassium 5.1 3.3-5.1 mmol/L Chloride 110 96-108 mmol/L Carbon Dioxide 16 22-29 mmol/L Anion Gap 16 12-20 Blood Urea Nitrogen 13 9-16 mg/dL Creatinine 1.33 0.5-1.4 mg/dL Creatinine Clr Calc Pharmacy 48.3 eGFR (calculated from the MDRD study equation) and eCrCl (calculated from the Cockcroft-Gault equation) are based on different parameters and may not yield comparable results. If eCrCl result is absurd, please check patient's height/weight. Estimated Glomerular Filt Rate 52 NOTE: For -Ugandan individuals, multiply the result by 1.210. Chronic Kidney Disease: Estimated GFR < 60 mL/min/1.73m2 Severe Kidney Disease: Estimated GFR < 15 mL/min/1.73m2 Glucose Random 87 60-115 mg/dL Calcium 9.0 8.4-10.2 mg/dL Hold Lav - Possible Hematolo gy Reviewed date:09/16/2023 04:13:06 PM Interpretation: Performing Lab:[facility], [address] [place] [phone] Notes/Report: Hold Lav - Possible Hematology SEE NOTE Specimen will be held untested for 8 hours. Call Hematology if testing is desired. Liver Panel Reviewed date:09/16/2023 04:11:11 PM Interpretation: Performing Lab:[facility], [address] [place] [phone] Notes/Report: Bilirubin Total 0.6 0.0-1.0 mg/dL Bilirubin Direct 0.2 0.0-0.5 mg/dL Slight Hem olysis Aspartate Amino Transferase 29 5-37 U/L Slight Hemolysis Alanine Aminotransferase 23 0-40 U/L Total Protein 6.6 6.5-8.0 g/dL Albumin Level 3.1 3.5-5.0 g/dL Alkaline Phosphatase 76 39-117 U/L Basic Metabolic Panel Fastin g Reviewed date:09/16/2023 04:12:46 PM Interpretation: Performing Lab:[facility], [address] [place] [phone] Notes/Report: Sodium 141 135-145 mmol/L Potassium 4.0 3.3-5.1 mmol/L Slight Hemoly sis Chloride 110 96-108 mmol/L Carbon Dioxide 20 22-29 mmol/L Anion Gap 15 12-20 Blood Urea Nitrogen 13 9-16 mg/dL Creatinine 1.25 0.5-1.4 mg/dL Creatinine Clr Calc Pharmacy 51.3 eGFR (calculated from the MDRD study equation) and eCrCl (calculated from the Cockcroft-Gault equation) are based on different parameters and may not yield comparable results. If eCrCl result is absurd, please check patient's height/weight. Estimated Glomerular Filt Rate 56 NOTE: For -Ugandan individuals, multiply the result by 1.210. Chronic Kidney Disease: Estimated GFR < 60 mL/min/1.73m2 Severe Kidney Disease: Estimated GFR < 15 mL/min/1.73m2 Glucose Fasting 76 60-99 mg/dL Calcium 9.1 8.4-10.2 mg/dL Complete Blood Count no Diff Reviewed date:09/18/2023 01:19:22 PM Interpretation: Performing Lab:[facility], [address] [place] [phone] Notes/Report: White Blood Count 7.8 4.8-10.8 X10*3/uL Red Blood Count 3.11 4.60-5.80 X10*6/uL Hemoglobin 10.3 14.0-18.0 g/dl Hematocrit 31.2 42.0-52.0 % Mean Corpuscular Volume 100.3 80.0-98.0 fL Mean Corpuscular Hemoglobin 33.1 27.0-33.0 pg Mean Corpuscular HGB Conc 33.0 31.0-36.0 g/dl Red Cell Distribution Width 13.9 11.0-16.0 % Platelet Count 137 160-400 X10*3/uL Mean Platelet Volume 11.9 9.4-12.4 fL NRBC Pct Auto 0.0 0.0-0.2 /100WBC NRBC Abs Auto 0.000 0.0-0.012 X10*3/uL Basic Metabolic Panel Fastin g Reviewed date:09/18/2023 12:40:26 PM Interpretation: Performing Lab:[facility], [address] [place] [phone] Notes/Report: Sodium 139 135-145 mmol/L Potassium 3.7 3.3-5.1 mmol/L Chloride 111 96-108 mmol/L Carbon Dioxide 19 22-29 mmol/L Anion Gap 13 12-20 Blood Urea Nitrogen 14 9-16 mg/dL Creatinine 1.26 0.5-1.4 mg/dL Creatinine Clr Calc Pharmacy 50.9 eGFR (calculated from the MDRD study equation) and eCrCl (calculated from the Cockcroft-Gault equation) are based on different parameters and may not yield comparable results. If eCrCl result is absurd, please check patient's height/weight. Estimated Glomerular Filt Rate 55 NOTE: For -Ugand[place] individuals, multiply the result by 1.210. Chronic Kidney Disease: Estimated GFR < 60 mL/min/1.73m2 Severe Kidney Disease: Estimated GFR < 15 mL/min/1.73m2 Glucose Fasting 86 60-99 mg/dL Calcium 8.5 8.4-10.2 mg/dL XR KUB Reviewed date:09/19/2023 12:17:19 PM Interpretation: Performing Lab: Notes/Report: [address] [address] XRay Report Signed Patient: Erasmo Quevedo MR#: [id number] 70 : 1945 Acct:[id number] Age/Sex: 78 / M ADM Date: 09/15/23 Loc: HO.S3 370-[address]: Jefry Álvarez MD Ordering Physician: Jefry Álvarez MD Date of Service: 09/18/23 Procedure(s): XR KUB Accession Number(s): [id number] cc: Moris Yu MD; Jefry Álvarez MD EXAMINATION: XR ABDOMEN KUB CLINICAL INDICATION: Evaluate stool burden COMPARISON: CT abdomen pelvis 09/14/2023 TECHNIQUE: AP view of the abdomen. FINDINGS: Minimal stool is present in the colon. Double-J right ureteral stent is present. There is marked degenerative changes in the spine with biconvex scoliosis. A right hip prosthesis is present. Bilateral nephrolithiasis again seen, better characterized on the recent CT scan. XR/XR KUB IMPRESSION: Minimal stool burden. Other incidental findings as described above. Dictated By: Serjio Torres MD Signed By: <Electronically signed by Serjio Torres MD in OV> 09/19/23 1012 DD/ 1619 TD/TT: Tinning Equipment Tender: SLOANE Complete Blood Count Auto Di ff Reviewed date:10/26/2023 09:59:23 AM Interpretation: Performing Lab:[facility], [address] [place] [phone] Notes/Report: White Blood Count 5.3 4.8-10.8 X10*3/uL Red Blood Count 3.51 4.60-5.80 X10*6/uL Hemoglobin 11.8 14.0-18.0 g/dl Hematocrit 35.1 42.0-52.0 % Mean Corpuscular Volume 100.0 80.0-98.0 fL Mean Corpuscular Hemoglobin 33.6 27.0-33.0 pg Mean Corpuscular HGB Conc 33.6 31.0-36.0 g/dl Red Cell Distribution Width 13.9 11.0-16.0 % Platelet Count 155 160-400 X10*3/uL Mean Platelet Volume 10.8 9.4-12.4 fL Neutrophils Percent Auto 65.7 45-73 % Imm Gran Pct Auto 0.8 0.0-0.4 % Lymphocytes Percent Auto 19.0 20-40 % Monocytes Percent Auto 10.0 2-11 % Eosinophils Percent Auto 3.9 0-4 % Basophils Percent Auto 0.6 0-2 % NRBC Pct Auto 0.0 0.0-0.2 /100WBC Neutrophils Absolute Auto 3.5 2.0-8.3 x10*3/u L Imm Gran Abs Auto 0.04 0.00-0.03 X10*3/uL Lymphocytes Absolute Auto 1.0 1.2-4.9 X10*3/u L Monocytes Absolute Auto 0.5 0.1-1.2 X10*3/uL Eosinophils Absolute Auto 0.2 0.0-0.4 X10*3/u L Basophils Absolute Auto 0.0 0.0-0.2 X10*3/uL NRBC Abs Auto 0.000 0.0-0.012 X10*3/uL Erythrocyte Sedimentation Ra te Reviewed date:10/25/2023 02:39:29 PM Interpretation: Performing Lab:[address] [phone] Notes/Report: Erythrocyte Sedimentation Rate 23 0-15 MM/HR Patients with polycythemia and many hemoglobin abnormalities may have depressed sed rates whereas patients with anemia may have elevated sed rates. Liver Panel Reviewed date:10/25/2023 02:40:10 PM Interpretation: Performing Lab:[facility], [address] [place] [phone] Notes/Report: Bilirubin Total 0.9 0.0-1.0 mg/dL Bilirubin Direct 0.4 0.0-0.5 mg/dL Aspartate Amino Transferase 18 5-37 U/L Alanine Aminotransferase 17 0-40 U/L Total Protein 6.8 6.5-8.0 g/dL Albumin Level 3.4 3.5-5.0 g/dL Alkaline Phosphatase 75 39-117 U/L Basic Metabolic Panel Reviewed date:10/26/2023 09:58:59 AM Interpretation: Performing Lab:[address] [phone] Notes/Report: Sodium 141 135-145 mmol/L Potassium 4.3 3.3-5.1 mmol/L Chloride 110 96-108 mmol/L Carbon Dioxide 25 22-29 mmol/L Anion Gap 10 12-20 Blood Urea Nitrogen 20 9-16 mg/dL Creatinine 1.99 0.5-1.4 mg/dL Estimated Glomerular Filt Rate 33 NOTE: For -Ugand[place] individuals, multiply the result by 1.210. Chronic Kidney Disease: Estimated GFR < 60 mL/min/1.73m2 Severe Kidney Disease: Estimated GFR < 15 mL/min/1.73m2 Glucose Random 107 60-115 mg/dL Calcium 9.6 8.4-10.2 mg/dL Urine Culture Reviewed date:11/19/2023 04:14:44 PM Interpretation: Performing Lab:[address] [phone] Notes/Report: Urine Culture Report Result Urine Culture < 10,000 cfu/ml Complete Blood Count Auto Di ff Reviewed date:01/03/2024 12:30:08 PM Interpretation: Performing Lab:[address] [phone] Notes/Report: White Blood Count 5.7 4.8-10.8 X10*3/uL Red Blood Count 3.84 4.60-5.80 X10*6/uL Hemoglobin 12.6 14.0-18.0 g/dl Hematocrit 37.6 42.0-52.0 % Mean Corpuscular Volume 97.9 80.0-98.0 fL Mean Corpuscular Hemoglobin 32.8 27.0-33.0 pg Mean Corpuscular HGB Conc 33.5 31.0-36.0 g/dl Red Cell Distribution Width 13.9 11.0-16.0 % Platelet Count 155 160-400 X10*3/uL Mean Platelet Volume 11.5 9.4-12.4 fL Neutrophils Percent Auto 69.9 45-73 % Imm Gran Pct Auto 0.7 0.0-0.4 % Lymphocytes Percent Auto 16.0 20-40 % Monocytes Percent Auto 9.0 2-11 % Eosinophils Percent Auto 3.7 0-4 % Basophils Percent Auto 0.7 0-2 % NRBC Pct Auto 0.0 0.0-0.2 /100WBC Neutrophils Absolute Auto 4.0 2.0-8.3 x10*3/u L Imm Gran Abs Auto 0.04 0.00-0.03 X10*3/uL Lymphocytes Absolute Auto 0.9 1.2-4.9 X10*3/u L Monocytes Absolute Auto 0.5 0.1-1.2 X10*3/uL Eosinophils Absolute Auto 0.2 0.0-0.4 X10*3/u L Basophils Absolute Auto 0.0 0.0-0.2 X10*3/uL NRBC Abs Auto 0.000 0.0-0.012 X10*3/uL Basic Metabolic Panel Reviewed date:01/03/2024 12:18:50 PM Interpretation: Performing Lab:[facility], [address] [place] [phone] Notes/Report: Sodium 139 135-145 mmol/L Potassium 4.4 3.3-5.1 mmol/L Chloride 110 96-108 mmol/L Carbon Dioxide 23 22-29 mmol/L Anion Gap 10 12-20 Blood Urea Nitrogen 17 9-16 mg/dL Creatinine 1.74 0.5-1.4 mg/dL Estimated Glomerular Filt Rate 38 NOTE: For -Ugandan individuals, multiply the result by 1.210. Chronic Kidney Disease: Estimated GFR < 60 mL/min/1.73m2 Severe Kidney Disease: Estimated GFR < 15 mL/min/1.73m2 Glucose Random 97 60-115 mg/dL Calcium 9.7 8.4-10.2 mg/dL XR KUB Reviewed date:02/18/2024 03:50:04 PM Interpretation: Performing Lab: Notes/Report: [address] [address] XRay Report Signed Patient: Erasmo Quevedo MR#: [id number] 70 : 1945 Acct:[id number] Age/Sex: 78 / M ADM Date: 02/15/24 Loc: HO.XRAY Attending Dr: Kuldip Ibarra MD Ordering Physician: Kuldip Ibarra MD Date of Service: 02/15/24 Procedure(s): XR KUB Accession Number(s): [id number] cc: Kuldip Ibarra MD; Moris Yu MD EXAMINATION: XR ABDOMEN KUB CLINICAL INDICATION: N40.1 - Benign prostatic hyperplasia with lower urinary tract symptoms COMPARISON: 09/18/2023 TECHNIQUE: AP view of the abdomen. FINDINGS: Previously seen right nephroureteral stent has been removed. Multiple calcified stones are again seen throughout both kidneys. There is a large calcified stone in the right paraspinal soft tissues at the level of the L3 likely within the proximal ureter. This is grossly unchanged in position compared to the prior exams. There are multiple additional calcifications along the right paraspinal soft tissues extending more inferiorly which could represent additional ureteral stones. Bowel gas pattern is unremarkable. Status post right hip total arthroplasty. Degenerative changes seen of the lumbar spine and left hip joint XR/XR KUB IMPRESSION: 1. Bilateral nephrolithiasis. 2. Large calcified stone in the right paraspinal soft tissues at the level of L3 likely within the proximal ureter. This is grossly unchanged in position compared to the prior exams. There are multiple additional calcifications along the right paraspinal soft tissues extending more inferiorly which could represent additional ureteral stones. Electronically signed by: Newton Elkins MD 02/17/2024 08:39 PM [facility] Dictated By: Newton Elkins MD Signed By: <Electronically signed by Newton Elkins MD in OV> 02/17/242038 DD/ 1150 TD/TT: 02/15/24 1205 Tinning Equipment Tender: REASON FOR REFERRAL No Information MEDICATIONS Medication SIG (Take, Route, Frequency, Duration) Notes Start Date End Date Status Potassium Citrate ER 10 MEQ (1080 MG) 1 tablet with meals Orally Twice a day Active Finasteride 5 MG 1 tablet Orally Once a day for 30 day(s) Active Losartan Potassium 25 MG 1 tablet Orally Once a day for 30 day(s) Active Xelpros 0.005 % 1 null into affected eye in the evening Ophthalmic Once a day Active Bisoprolol Fumarate 5 MG 1 tablet Orally Once a day for 30 day(s) Active Allopurinol 100 MG 1 tablet Orally Once a day for 30 day(s) Active Atorvastatin Calcium 80 MG take 1 tablet daily Orally Once a day Active Budesonide (Inhalation) once a day, QOD Not-Taking Prevagen 10 MG as directed Orally Active Albuterol Sulfate HFA 108 (90 Base) MCG/ACT 1 puff as needed Inhalation every 4 hrs 07/09/2021 Not-Ashvin stanfrod Spiriva Respimat 2.5 MCG/ACT 2 puffs Inhalation Once a day Active Alphagan P 0.1 % 1 drop into affected eye Ophthalmic every 8 hrs Not-Taking Dulera 100-5 MCG/ACT 2 puffs Inhalation Twice a day Active Omeprazole 20 MG TAKE 1 CAPSULE DAILY Orally Once a day for 90 days Not-Taking Cialis 10 MG 1 tablet Orally for 30 day(s) Not-Taking Montelukast Sodium 10 mg TAKE 1 TABLET D AILY IN THE EVENING Active Albuterol Sulfate 0.63 MG/3ML 3 ml as needed Inhalation Three times a day for 90 days 10/23/2014 Not-Taking Eliquis 5 MG 1 tablet Orally Twic e a day for 30 day(s) Not-Taking Doxycycline Hyclate 100 MG 1 capsule Orally Once a day for 10 day(s) Not-Taking Ventolin HFA 108 2 puffs as needed Inhalation every 4 hrs Not-Ashvin stanford Escitalopram Oxalate 10 MG 1 tablet Orally Once a day for 30 day(s) 07/08/2022 Not-Taking Dymista 137-50 MCG/ACT 1 puff in each no stril Nasally Twice a day Not-Taking Naproxen 250 MG 1 tablet with food o r milk Orally Twice a day for 30 day(s) Not-Taking Multaq 400 MG 1 tablet with meals Orally Twice a day for 30 day(s) Active IMMUNIZATIONS Vaccine Route Administration Date Status Comme nts Flu Vaccine Unknown 12/17/2010 Administered Shingles Unknown 06/30/2009 Administered Prevnar 13 Unknown 01/13/2012 Administered Flu Vaccine Unknown 12/07/2011 Administered given at [facility] Flu Vaccine Unknown 11/18/2012 Administered received at [facility] PPSV23 (Pnemovax) IM Intramuscular 09/19/2013 Administered Flu Vaccine Unknown 12/03/2013 Administered was given b [facility] Flu Vaccine Unknown 11/27/2014 Administered Given by wi fe TDaP IM Intramuscular 02/10/2015 Administered Fluarix Quadrivalent Unknown 12/08/2015 Administered Gi micheal by through a Flu Clinic Fluarix Quadrivalent IM Intramuscular 11/27/2017 Administe red Shingrix Unknown 01/11/2018 [facility]ered [facility] Shingrix Unknown 01/11/2018 [facility]ered [facility] Shingrix Unknown 05/17/2018 [facility]ered [facility] Fluarix Quadrivalent Unknown 12/05/2018 Administered [facility] PPSV23 (Pnemovax) IM Intramuscular 12/18/2018 Administered Influenza High Dose Unknown 11/05/[address] [facility] Covid Vaccine Unknown 05/13/2020 Administered Moderna Covid Vaccine Unknown 04/15/2020 Administered Moderna SARS-COV-2 Moderna Unknown 12/31/2020 [facility]ered [facility] Influenza High Dose Unknown 12/04/2020 [facility]ered [facility] Influenza High Dose Unknown 11/29/2021 Administered SOCIAL HISTORY Tobacco Use: Social History Observation Description Date Details (start date - stop date) Never Smoker NA - NA Sex Assigned At : Social History Observation Description Sex Assigned At Unknown Tobacco Use/Smoking Question Answer Notes Patient is a nonsmoker Additional Findings: Tobacco Non-User Cu rrent non-smoker, currently using no form of tobacco Alcohol Screen Question Answer Notes Did you have a drink containing alcohol in the p ast year? No Points 0 Interpretation Negative PROBLEMS Problem Type ICD Code Onset Dates Problem Status W/U Status Risk SNOMED Code Notes Problem Erectile Dysfunction (607.84) Active confirmed Erectile dysfun ction (001674185) Problem Thrombocytopenia (D69.6) Active confirmed 408698889 Problem Paroxysmal atrial fibrillation (I48.0) Active confirmed 674342845 Problem Tubular adenoma of colon (D12.6) Active confirmed 273724971 Problem History of coronary artery disease (Z86.79) Active confirmed 658788672 Problem Sarcoidosis (D86.9) Active confirmed 31 618658 Problem Dysthymia (F34.1) Active confirmed 7866 7006 Problem 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) Active confirmed 336191707 Problem Pure hypercholesterolemia (E78.00) Active confirmed 926032712 Problem Hypercholesterolemia (E78.00) Active confirmed Hypercholestero lemia (99525990) Problem BMI 32.0-32.9,adult (Z68.32) Active confirmed 931524273 Problem Moderate asthma without complication, unspecified whether persistent (J45.909) Active confirmed 479722682 Problem Chronic congestive heart failure, unspecified heart failure type (I50.9) Active confirmed 57638640 Problem Avascular necrosis o f bone of right hip (M87.051) Active confirmed 763060312 Problem 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) Active confirmed 656468567 Problem Hypersomnolence (G47.10) Active confirmed Hypersomnia (04464584) Problem Other ventricular tachycardia (I47.29) Active confirmed 99231150 Problem Acute constipation (K59.00) Active confirmed 306588225 VITAL SIGNS Blood pressure diastolic 78 mm Hg 09/25/2023 Height 70 in 09/25/2023 Blood pressure systolic 102 mm Hg 09/25/2023 Weight 214 lbs 09/25/2023 BMI 30.70 kg/m2 09/25/2023 Encounters Encounter Location Date Provider Diagnosis Moris Yu MD [address] [place] [address] [id number] 03/17/2023 Moris Yu MD [address] [place] [address] [id number] 07/14/2023 Moris Yu Pure hypercholestero lemia E78.00 Moris Yu MD [address] [place] [address] [id number] 03/01/2023 Moris Yu MD [address] [place] [address] [id number] 07/20/2023 Moris Yu Chronic congestive h eart failure, unspecified heart failure type I50.9 ; Hypercholesterolemia E78.00 ; Nonsustained ventricular tachycardia I47.2 and Other ventricular tachycardia I47.29 Moris Yu MD [address] [place] [address] [id number] 08/29/2023 Moris Yu Acute pneumonia J18. 9 ; Thrombocytopenia D69.6 ; Elevated serum creatinine R79.89 ; Lower extremity edema R60.0 ; Gross hematuria R31.0 and Dental abscess K04.7 Moris Yu MD [address] [place] [address] [id number] 09/25/2023 Moris Yu Status post insertio n of drug eluting coronary artery stent Z95.5 ; Paroxysmal atrial fibrillation I48.0 and Chronic congestive heart failure, unspecified heart failure type I50.9 Moris Yu MD [address] [place] [address] [id number] 09/04/2023 Moris Yu MD [address] [place] [address] [id number] 08/28/20[address] [place] [address] [id number] 09/08/2023 [address] [place] [address] [id number] 09/08/20[address] [place] [address] [id number] 09/19/2023 Moris Yu MD [address] [place] [address] [id number] 09/11/2023 Moris Yu Paroxysmal atrial fibrillation I48.0 and Gross hematuria R31.0 Moris Yu MD [address] [place] [address] [id number] 09/14/2023 Moris Yu Dysuria R30.0 ; Acut e diarrhea R19.7 and Acute constipation K59.00 ASSESSMENTS Encounter Date Diagnosis Assessment Notes Treatment Notes Treatment Clinical Notes 07/14/2023 Pure hypercholestero lemia (ICD-10 - E78.00) 07/20/2023 Hypercholesterolemia (ICD-10 - E78.00) doing well on meds, will continue curent regiment 07/20/2023 Chronic congestive h eart failure, unspecified heart failure type (ICD-10 - I50.9) need results from recent echo/ is always tired and short of breath. not doing any type of activity. conditioning deteriorating 08/29/2023 Thrombocytopenia (IC D-10 - D69.6) is getting repeat blood work 08/29/2023 Acute pneumonia (ICD -10 - J18.9) order given to patient 09/25/2023 Paroxysmal atrial fibrillation (ICD-10 - I48.0) going to get ecg this week 09/25/2023 Status post insertio n of drug eluting coronary artery stent (ICD-10 - Z95.5) no chest pain, Total time spent on the date of the encounter is 35 minutes including both face to face time spent and time spent reviewing documentation, and counseling the patient. 09/11/2023 Paroxysmal atrial fibrillation (ICD-10 - I48.0) knows that there is a risk but choses not to do any blood thinner. 09/11/2023 Gross hematuria (ICD -10 - R31.0) has not had any more. 09/14/2023 Dysuria (ICD-10 - R30.0) 09/14/2023 Acute diarrhea (ICD- 10 - R19.7) after taking laxatives, is now having diarrhea. will observe 07/20/2023 Nonsustained ventric ular tachycardia (ICD-10 - I47.2) had holter that showed nsvt and no treatment advised by cardiology 08/29/2023 Elevated serum creat inine (ICD-10 - R79.89) repeating blood work 09/25/2023 Chronic congestive h eart failure, unspecified heart failure type (ICD-10 - I50.9) stable with no evidence of recurrence 09/14/2023 Acute constipation (ICD-10 - K59.00) at present after taking laxatives, is cleaned out and not being bothered as much 07/20/2023 Other ventricular tachycardia (ICD-10 - I47.29) 08/29/2023 Lower extremity lc a (ICD-10 - R60.0) 08/29/2023 Gross hematuria (ICD -10 - R31.0) will hold the xarelto for now. there is a risk of clots and stroke but less than the bleeding risk 08/29/2023 Dental abscess (ICD- 10 - K04.7) going back to dentist PLAN OF TREATMENT Pending Test Test Name Order Date Electrocardiogram (EKG) 10/21/2016 CT BRAIN W&WO CONTRAST 07/08/2022 XR CHEST 2 VIEW PA & LAT 11/07/2016 XR CHEST 2 VIEW PA & LAT 05/17/2011 XR CHEST 2 VIEW PA & LAT 09/07/2015 XR GI SERIES 01/18/2013 Complete Blood Count Auto Diff 5 Comprehensive [place]. Panel Fast 5 Lipid Panel 03/01/2024 PSA,Total (Free>4and<10) 03/01/2024 CT head/brain wo con 07/28/2022 UA ClnCatch+Micro w/rflx Cult 03/01/2024 Future Test Test Name Order Date XR CHEST 2 VIEW PA & LAT 09/05/2023 Next Appt Details Provider Name:Moris Wiggins ier, 03/01/2024 08:15:00 AM, [address] [place] [address], [address], [place], [place], [phone], Provider Name:Moris Wiggins ier, 03/08/2024 11:00:00 AM, [address] [place] [address], [address], [place], [place], [phone], Insurance Providers Payer Name Payer Address Payer Phone Subscriber Number Group Number Insured Name Patient Relationship to Insured Coverage Start Date Coverage End Date [employer] [address] [place] [address] [id number] Erasmo Quevedo Self - patient is the insured [facility] [address] [place] [phone] [id number] Erasmo Quevedo Self - patient is the insured MEDICAL (GENERAL) HISTORY Medical History History ICD Code colonoscopy - 04/2006 - repea t 5 years. 07/27/12; colonoscopy 05/14/2013 - repeat 5 years; Colonoscopy done 11/19/[address] Srivastava - no further testing indicated. Achilles bursitis or tendinitis HX of Kidney Stones Incidental Lung Nodule
--- OUTSIDE RECORDS SUMMARY | 2024-02-22 13:15 | XMS_ITS ---
Author Name [facility] Organization Unknown History of Medication Use Medication Directions Dispensed Refills Start Date End Date Stat potassium citrate ER 10 mEq (1,080 mg) tablet,extended release 09/24/2022 active montelukast 10 mg tablet 09/24/2022 active amoxicillin 875 mg-potassium clavulanate 125 mg tablet TAKE 1 TABLET BY MOUTH EVERY 12 HOURS FOR 10 DAYS 09/24/2022 active allopurinol 100 mg tablet 09/24/2022 active losartan 25 mg tablet 09/24/2022 active escitalopram 10 mg tablet 09/24/2022 active montelukast 10 mg tablet 09/24/2022 active bisoprolol fumarate 5 mg tablet 09/24/2022 active atorvastatin 80 mg tablet 09/24/2022 active azelastine-fluticason e 137 mcg-50 mcg/spray nasal spray 09/24/2022 act mele clindamycin HCl 150 mg capsule 09/24/2022 active Paxlovid 150 mg-100 mg tablets in a dose pack (Renal Dose) TAKE 2 TABLETS BY MOUTH TWICE A DAY FOR 5 DAYS 09/24/2022 active trazodone 50 mg tablet 09/24/2022 active Spiriva Respimat 2.5 mcg/actuation solution for inhalation 09/24/2022 active
--- OUTSIDE RECORDS SUMMARY | 2024-02-22 13:15 | XMS_ITS | Data Portability ---
Author Organization [place] [facility] Mena Zaldivar AONE [place] Address [address] [facility] [address] [place] [address] Care Team Providers Care Jr. Java Developer Name Role Phone CHRISTIAN WEBB Primary Care Provider [phone] Assessment Encounter Date Assessment Date Assessment LastModified by Organization Details LastModified Time 09/22/2022 09/22/2022 77-year-old male status post R hip. R-DEE 09/18/19 PETER doing well clinically. He will continue with the stretching exercise regimen. He can discontinue his antibiotic prophylaxis however if his dentist wishes to continue this they can take over management. Follow up visit recall 5 years. Should he have any other orthopedic needs should they arise he should contact our office for the proper referral to the appropriate specialist. He agrees with the above-noted plan. Indirect care and treatment in conjunction with Dr. Castle Additional treatment plan discussed with the patient in detail included the following; - Provider focused nonsteroidal anti-inflammator y regimen (discussed were the pros, cons, benefits and risks as well as any black box warnings) in patients over 60 years old they should be very cautious in taking these medications due to potential decreased kidney function and or elevated blood pressure. - Analgesic pain medication for pain suppression (discussed were the pros, cons, benefits and risks as well as any black box warnings) - The use of topical pain relieving medication were discussed - The use of ice to decrease inflammation and pain - The use of assistive ambulatory devices for ambulation and fall prevention - Formal specific guided physical therapy program I reviewed my findings at length with the patient today. ??We discussed the nature and etiology of this problem along with current treatment options. We discussed the expected course and outcomes and what to expect. We also discussed risks and benefits. ?? All of their questions were answered today, and there was exhibited understanding and comprehension of all that was discussed. Time Spent: 10 minutes were spent reviewing previous imaging and charting. ??10 minutes were spent obtaining patient history. ??5 minutes were spent on physical exam. ??5??minutes were spent explaining diagnosis and assessment. Today's documentation was made using voice recognition software. This note may contain grammatical errors secondary to the software. Not available 09/22/2022 12:18:45 Plan of Treatment Reminders Order Date Submit Date Provider Last Modified By Organization Details Last Modified Time Details Appointments None record ed. Lab None record ed. Referral None record ed. Procedures None record ed. Surgeries None record ed. Imaging XR, hip, unilat eral, 2 or 3 view 023 09/23/19 23 [email or web address] [facility], [address], [place], [address], 16:12:07 Medication Orders None record ed. Patient TargetsNo targets recorded. Patient Instructions Encounter Date Encounter Id Patient Instructions Last Modified By Organization Details Last Modified Time 09/22/2022 [id number] three-view x-ray of the right hip reveals well-seated well-positioned total hip arthroplasty without sign of loosening. Not available 09/22/2022 13:42:30 Reason for Referral None Reported. Procedures Surgical History Date Name Laterality Status Provider Name and Address Organization Details Recorded Time total replacement of hip completed Marylou Bradshaw [place] - [facility], 09/22/2022 15:39:52 Imaging Results None recorded. Procedure Notes None recorded. Medical Equipment None Reported. Medications Name Sig Start Date Stop Date Status Note LastModified by Organization Details LastModified Time atorvastatin 80 mg tablet active Not Available Not Available Not Available trazodone 50 mg tablet active Not Available Not Available No t Available clindamycin HCl 150 mg capsule 09/22 completed Not Available Not Available Not Available allopurinol 100 mg tablet active Not Available Not Available Not Available bisoprolol fumarate 5 mg tablet active Not Available Not Available No t Available potassium citrate ER 10 mEq (1,080 mg) tablet,exten ded release active Not Available Not Available Not Available losartan 25 mg tablet active Not Available Not Available No t Available montelukast 10 mg tablet active Not Available Not Available Not Available amoxicillin 875 mg-potassium clavulanate 125 mg tablet TAKE 1 TABLET BY MOUTH EVERY 12 HOURS FOR 10 DAYS 09/22 completed Not Available Not Available Not Available escitalopram 10 mg tablet 09/22 completed Not Available Not Available Not Available azelastine 137 mcg-fluticas one 50 mcg/spray nasal spray 09/22 completed Not Available Not Available Not Available Spiriva Respimat 2.5 mcg/actuatio n solution for inhalation active Not Available Not Available N ot Available Paxlovid 150 mg-100 mg tablets in a dose pack (Renal Dose) TAKE 2 TABLETS BY MOUTH TWICE A DAY FOR 5 DAYS 09/22 completed Not Available Not Available Not Available Vitals Date Recorded Body height Body mass index (BMI) Body weight Provider Name and Address Organization Details Last Updated DateTime 09/22/2022 154.94 cm 43.5 kg/m2 703251.25 g Marylou MonroyRUST - [facility] 09/22/2022 14:14:14 Social History Question Answer Notes LastModified by Organizat ion Details LastModified Time Tobacco Smoking Status Never Smoker Marylou Bradshaw [facility], [place] [facility] 09/22/2022 15:42:02 What Is Your Level Of Alcohol Consumption? None Information not available 09/22/2022 Do You Use Any Illicit Or Recreational Drugs? No Information not available 09/22/2022 Do You Or Have You Ever Used Any Other Forms Of Tobacco Or Nicotine? No Information not available 09/22/2022 Sex: Unknown Functional Status None recorded. Mental Status None recorded. Family History Nothing Reported. Medical History Condition Response Kidney Disease Y Asthma Y Heart Disease Y Hypertension Y Past Encounters Encounter ID Performer Location Encounter Start Date Encounter Closed Date Diagnosis/Indication Diagnosis SNOMED-CT Code Diagnosis ICD10 Code [id number] MD DUSTY Whitneynina gonzalez [address] [place] [id number] 1 09/22/2022 13:17:45 09/22/2022 13:52:32 History of total replacement of right hip joint [id number] 80687 Z96.641 Health Concerns Section Related Observation LastModified by Organization Jerald angeles LastModified Time None Recorded Concern Status LastModified by Organization Details LastModified Time None Recorded Advance Directives Directive None Recorded Payers Encounter Date Sequence Insurance Name Policy Number Policy Grijalva Covered Member ID Grijalva Member ID Guarantor Name 09/22/2022 1 [place]ICARE B-[place]: [employer] Erasmo Quevedo [id number] Erasmo Quevedo 09/22/2022 2 WPS - FOR LIFE (MEDICARE SUPPLEMENT) Erasmo Quevedo [id number] Erasmo Gamal Sae Notes Date Note Type Note Provider Name and Address Organization Details Recorded Time 09/22/2022 text/html R hip. R-DEE 09/18/19. xrays today. 77-year-old male history of right total hip arthroplasty 09/18/[address] Sanchez. Here for annual follow-up. States intermittent discomfort however doing well. He does do stretching exercises. He also takes his antibiotic prophylaxis prior to dental work. COREEN SIMS PA-C [address] [place] [address], [place], [address], [place] [facility], 09/22/2022 13:52:09
--- OUTSIDE RECORDS SUMMARY | 2024-02-22 13:15 | XMS_ITS ---
Author Organization Moris Yu MD Address [address] [place] [id number] Care Team Providers Care Method Consultant Name Role Phone Moris Yu Primary Care Provider ALLERGIES Allergen (clinical drug ingredient) Drug/Non Drug Allergy documented on EMR Reaction Allergy Type Onset Date Status Gadavist hives Drug Allergy Active azithromycin Zithromax Z-Jhonny severe diarrhea Drug Allergy Active penicillin G Penicillin G Potassium rash Drug Allergy Active Doxycycline Calcium hives Drug Allergy Active Gadolinium and/or gadolinium compound (FN) gadalinium (uncoded) hives Allergy Active REASON FOR VISIT 3 DAY F/U, video [phone] MEDICATIONS Medication SIG (Take, Route, Frequency, Duration) [...] Notes Problem Acute constipation (K59.00) Active confirmed [id number] VITAL SIGNS BMI 30.85 kg/m2 09/14/2023 Height 70 in 09/14/2023 Weight 215 lbs 09/14/2023 weight is 215 at home BP not taken at home today no temp Encounters Encounter Location Date Provider Diagnosis Moris Yu MD [address] [place], [place] [id number] 09/14/2023 Moris Yu Dysuria R30.0 ; Acut [...] Details Provider Name:Moris delgadillo, 03/01/2024 08:15:00 AM, [address] [place] [address], [address], [place], [place], [phone], Provider Name:Moris delgadillo, 03/08/2024 11:00:00 AM, [address] [place] [address], [address], [place], [place], [phone], Progress Notes * Examination Category Sub-Category Detail Notes General Examination GENERAL APPEARANCE: ill appe aring History and Physical Notes * HPI (History of Present Illness) Category Sub-Category Detail Notes Symptom(s) Telehealth Location of [facility] ider rendering services:: [address], [address] [...]
--- OUTSIDE RECORDS SUMMARY | 2024-02-22 13:15 | XMS_ITS | Continuity of Care Document ---
Author Name [facility] Organization [facility] Care Team Providers Care Pharmacy Resource Tech Name Role Phone [facility] Unavailable Unavailable Medications Combined list of outpatient medications from Department of Defense and Veterans Affairs facilities.Medications provided include 1) outpatient medications from the last 15 months, and 2) patient-reported medications. Medication Details Route Status Patient Instructions Prescription Expires Prescription Number Last Dispense Date Ordering Provider Order Date Order Qty Source ALLOPURINOL (ALLOPURINO L), 100MG, TABLET, ORAL, '[facility], 1000 ea. BOTTLE Active [id number] 2023 90 Pharmac y Data Transac tion Service Facilit y ALPHAGAN P (BRIMONIDIN E TARTRATE), 0.1%, DROPS, OPHTHALMIC, [employer] 5 ml DROP BTL Active [id number] 3 2022 25 Pharmac y Data Transac tion Service Facilit y ALPHAGAN P (BRIMONIDIN E TARTRATE), 0.1%, DROPS, OPHTHALMIC, [employer] 5 ml DROP BTL Active [id number] 4 2023 25 Pharmac y Data Transac tion Service Facilit y AMOX TR-POTASSIU M CLAVULANATE (AMOXICILLI N/POTASSIUM CLAV), 875-125 MG, TABLET, ORAL, [facility], 20 ea. BOTTLE Active [id number] 4 2023 14 Pharmac y Data Transac tion Service Facilit y ATORVASTATI N CALCIUM (atorvastat in calcium), 80 MG, TABLET, ORAL, PRAVIN PHARMACEU, 500 ea. BOTTLE Active [id number] 4 2023 90 Pharmac y Data Transac tion Service Facilit y BISOPROLOL FUMARATE (bisoprolol fumarate), 5 MG, TABLET, ORAL, [employer] 100 ea. BOTTLE Active [id number] 4 2023 90 Pharmac y Data Transac tion Service Facilit y BISOPROLOL FUMARATE (bisoprolol fumarate), 5 MG, TABLET, ORAL, [employer] [facility] 100 ea. BOTTLE Active [id number] 4 2023 90 Pharmac y Data Transac tion Service Facilit y ELIQUIS (APIXABAN), 5 MG, TABLET, ORAL, [facility] , 60 ea. BOTTLE Active [id number] 4 2023 180 Pharmac y Data Transac tion Service Facilit y ELIQUIS (APIXABAN), 5 MG, TABLET, ORAL, [facility] , 60 ea. BOTTLE Active [id number] 4 2023 180 Pharmac y Data Transac tion Service Facilit y ELIQUIS (APIXABAN), 5 MG, TABLET, ORAL, [facility] , 60 ea. BOTTLE Cancele d [id number] : 2023 0 Pharmac y Data Transac tion Service Facilit y ELIQUIS (APIXABAN), 5 MG, TABLET, ORAL, [facility] , 60 ea. BOTTLE Cancele d [id number] : 2023 0 Pharmac y Data Transac tion Service Facilit y ELIQUIS (APIXABAN), 5 MG, TABLET, ORAL, [facility] , 60 ea. BOTTLE Active [id number] 4 2023 60 Pharmac y Data Transac tion Service Facilit y FINASTERIDE (FINASTERID E), 5 MG, TABLET, ORAL, EXELAN PHARMACE, 90 ea. BOTTLE Active [id number] 4 2023 90 Pharmac y Data Transac tion Service Facilit y FINASTERIDE (FINASTERID E), 5 MG, TABLET, ORAL, [employer]ARMACE, 90 ea. BOTTLE Active [id number] 4 2023 90 Pharmac y Data Transac tion Service Facilit y FINASTERIDE (FINASTERID E), 5 MG, TABLET, ORAL, EXELAN PHARMACE, 90 ea. BOTTLE Active [id number] 4 2023 90 Pharmac y Data Transac tion Service Facilit y MULTAQ (DRONEDARON E HYDROCHLORI DE), 400 MG, TABLET, ORAL, SANOFI-AVEN TIS, 60 ea. BOTTLE Active [id number] 4 2023 180 Pharmac y Data Transac tion Service Facilit y MULTAQ (DRONEDARON E HYDROCHLORI DE), 400 MG, TABLET, ORAL, SANOFI-AVEN TIS, 60 ea. BOTTLE Active [id number] 4 2023 60 Pharmac y Data Transac tion Service Facilit y MULTAQ (DRONEDARON E HYDROCHLORI DE), 400 MG, TABLET, ORAL, SANOFI-AVEN TIS, 60 ea. BOTTLE Active [id number] 4 2023 60 Pharmac y Data Transac tion Service Facilit y POTASSIUM CITRATE (POTASSIUM CITRATE), 10MEQ, TABLET SA, ORAL, [employer], 100 ea. BOTTLE Active [id number] 4 2023 200 Pharmac y Data Transac tion Service Facilit y POTASSIUM CITRATE (POTASSIUM CITRATE), 10MEQ, TABLET SA, ORAL, [employer], 100 ea. BOTTLE Active [id number] 4 2023 200 Pharmac y Data Transac tion Service Facilit y Immunizations Combined list of available immunizations from the Department of Defense and Veterans Affairs facilities. Immunization Series Date Given Administered By Site Reaction Lot Number CVX Code Drug Inside Sales Engineer Status Comments Source Tdap 2019 BOGDASARIAN, () Not Given Tdap DoD Influenza, injectable, MDCK, quadrivalent, preservative 2018 ANNABEL,D () Not Given Influenza , injectabl e, MDCK, quadrival ent, preservat mele DoD zoster recombinant 2018 ANNABEL,D () Not Given zoster recombina nt DoD Influenza, seasonal, injectable 2014 ANNABEL,D () Not Given Influenza , seasonal, injectabl e DoD Social History Combined list of available smoking, tobacco, and other social history from Department of Defense and Veterans Affairs facilities. Social History Type Response Date Comment Sour e This section is an empty social history section. DoD
== END 2024-02-22 14:13 | disposition home or self-care (01) ==
PROVIDERS: PCP Internal Medicine; Visit Provider Urology
DX: Z13.9 Encounter for screening, unspecified (principal)

== ENCOUNTER → 2024-02-22 13:13 | Outpatient (BNVA) | payer MEDICARE, OTHER, SELFPAY | PROVIDERS: PCP Internal Medicine; Visit Provider Urology | DX: N20.0 Calculus of kidney (principal); N39.0 Urinary tract infection, site not specified; Z79.899 Other long term (current) drug therapy | CPT/HCPCS: 51798; 81003 ==

== ENCOUNTER 2024-02-23 16:34 | Outpatient (REF) | payer MEDICARE, OTHER, SELFPAY ==
[2024-02-23 16:51] LABS: Urine Cytology See Pathology rpt
== END 2024-02-23 16:35 | disposition home or self-care (01) ==
LOC: HO.LAB 16:34
PROVIDERS: Visit Provider Urology
DX: N39.0 Urinary tract infection, site not specified (principal)
CPT/HCPCS: 87086; 88112

== ENCOUNTER 2024-03-01 10:46 | Outpatient (REF) | payer MEDICARE, OTHER, SELFPAY ==
[2024-03-01 10:50] LABS: MANUAL DIFF FLAG NO
[2024-03-01 11:22] LABS: Basophils Percent Auto 0.5 % (0-2); Eosinophils Absolute Auto 0.3 X10*3/uL (0.0-0.4); Eosinophils Percent Auto 4.8 % (0-4); Hematocrit 40.2 % (42.0-52.0); Hemoglobin 13.1 g/dl (14.0-18.0); Imm Gran Abs Auto 0.04 X10*3/uL (0.00-0.03); Imm Gran Pct Auto 0.7 % (0.0-0.4); Lymphocytes Absolute Auto 1.3 X10*3/uL (1.2-4.9); Lymphocytes Percent Auto 22.9 % (20-40); Mean Corpuscular HGB Conc 32.6 g/dl (31.0-36.0); Mean Corpuscular Hemoglobin 32.2 pg (27.0-33.0); Mean Corpuscular Volume 98.8 fL (80.0-98.0); Mean Platelet Volume 11.2 fL (9.4-12.4); Monocytes Absolute Auto 0.6 X10*3/uL (0.1-1.2); Monocytes Percent Auto 11.3 % (2-11); Neutrophils Absolute Auto 3.3 x10*3/uL (2.0-8.3); Neutrophils Percent Auto 59.8 % (45-73); Platelet Count 168 X10*3/uL (160-400); Red Blood Count 4.07 X10*6/uL (4.60-5.80); Red Cell Distribution Width 13.6 % (11.0-16.0); White Blood Count 5.6 X10*3/uL (4.8-10.8)
[2024-03-01 11:33] LABS: Appearance Urine Hazy; Color Urine Yellow; Glucose Urine UA Negative (Negative); Leukocyte Esterase Urine Moderate (2+) (Negative); Nitrite Urine Positive (Negative); UMIC TRIGGER UACC YES; Urine Blood Large (3+) (Negative); Urine Ketones Negative (Negative); Urine Protein Trace mg/dL (Neg-Trace)
[2024-03-01 11:56] LABS: RBC Urine >20 /HPF (0-2); UACC Culture Trigger YES; WBC Urine 0-5 /HPF (0-5)
[2024-03-01 11:57] LABS: Bacteria Urine 1+ (None Seen); Hyaline Casts Urine 0-2 /LPF (0-2); Squamous Epithelial Cell Urine 0-2 /HPF (0-2)
[2024-03-01 12:05] LABS: Alanine Aminotransferase 8 U/L (0-40); Albumin Level 3.5 g/dL (3.5-5.0); Alkaline Phosphatase 74 U/L (39-117); Anion Gap 12 (12-20); Aspartate Amino Transferase 31 U/L (5-37); Bilirubin Total 0.8 mg/dL (0.0-1.0); Blood Urea Nitrogen 16 mg/dL (9-16); Calcium 9.3 mg/dL (8.4-10.2); Carbon Dioxide 24 mmol/L (22-29); Chloride 109 mmol/L (96-108); Cholesterol 119 mg/dL (<200); Estimated Glomerular Filt Rate 36; Glucose Fasting 105 mg/dL (60-99); HDL Cholesterol 44 mg/dL (>40); LDL Cholesterol Calculated 60 mg/dL (<100); Potassium 4.4 mmol/L (3.3-5.1); Sodium 141 mmol/L (135-145); Total Protein 7.1 g/dL (6.5-8.0); Triglycerides 76 mg/dL (<150)
--- OUTSIDE RECORDS SUMMARY | 2024-03-01 12:26 | XMS_ITS ---
Author Organization Moris Yu MD Address [address] [place], [place] [id number] Care Team Providers Care Chlorinator Operator Name Role Phone Moris Yu Primary Care Provider [phone] RESULTS Component Value Reference Range Notes UA ClnCatch+Micro w/rflx Cul t (Not yet reviewed by provider) Interpretation: Performing Lab:[facility], [address] [place] [phone] Notes/Report: Urine, Clean Catch Color Urine Yellow Appearance Urine Hazy PH 6.0 5.0-9.0 Glucose Urine UA Negative Negative mg/dL Urine Blood Large (3+) Negative Specific Stevenson - Urine 1.020 1.005-1.025 Urine Protein Trace Neg-Trace mg/dL Urine Ketones Negative Negative mg/dL Nitrite Urine Positive Negative Leukocyte Esterase Urine Moderate (2+) Negative RBC Urine >20 0-2 /HPF WBC Urine 0-5 0-5 /HPF Squamous Epithelial Cell Urine 0-2 0-2 /HPF Bacteria Urine 1+ None Seen Hyaline Casts Urine 0-2 0-2 /LPF Complete Blood Count Auto Di ff Reviewed date:03/01/2024 11:46:39 AM Interpretation: Performing Lab:[facility], [address] [place] [phone] Notes/Report: White Blood Count 5.6 4.8-10.8 X10*3/uL Red Blood Count 4.07 4.60-5.80 X10*6/uL Hemoglobin 13.1 14.0-18.0 g/dl Hematocrit 40.2 42.0-52.0 % Mean Corpuscular Volume 98.8 80.0-98.0 fL Mean Corpuscular Hemoglobin 32.2 27.0-33.0 pg Mean Corpuscular HGB Conc 32.6 31.0-36.0 g/dl Red Cell Distribution Width 13.6 11.0-16.0 % Platelet Count 168 160-400 X10*3/uL Mean Platelet Volume 11.2 9.4-12.4 fL Neutrophils Percent Auto 59.8 45-73 % Imm Gran Pct Auto 0.7 0.0-0.4 % Lymphocytes Percent Auto 22.9 20-40 % Monocytes Percent Auto 11.3 2-11 % Eosinophils Percent Auto 4.8 0-4 % Basophils Percent Auto 0.5 0-2 % NRBC Pct Auto 0.0 0.0-0.2 /100WBC Neutrophils Absolute Auto 3.3 2.0-8.3 x10*3/u L Imm Gran Abs Auto 0.04 0.00-0.03 X10*3/uL Lymphocytes Absolute Auto 1.3 1.2-4.9 X10*3/u L Monocytes Absolute Auto 0.6 0.1-1.2 X10*3/uL Eosinophils Absolute Auto 0.3 0.0-0.4 X10*3/u L Basophils Absolute Auto 0.0 0.0-0.2 X10*3/uL NRBC Abs Auto 0.000 0.0-0.012 X10*3/uL Comprehensive [place]. Panel Fa st Reviewed date:03/01/2024 12:19:08 PM Interpretation: Performing Lab:[facility], [address] [place] [phone] Notes/Report: Sodium 141 135-145 mmol/L Potassium 4.4 3.3-5.1 mmol/L Slight Hemolysis.Interpret result with caution. Chloride 109 96-108 mmol/L Carbon Dioxide 24 22-29 mmol/L Anion Gap 12 12-20 Blood Urea Nitrogen 16 9-16 mg/dL Creatinine 1.81 0.5-1.4 mg/dL Estimated Glomerular Filt Rate 36 Chronic Kidney Disease: Estimated GFR < 60 mL/min/1.73m2 Severe Kidney Disease: Estimated GFR < 15 mL/min/1.73m2 Glucose Fasting 105 60-99 mg/dL A fasting glucose from 100-125 mg/dl is considered impaired (pre-diabetes). Calcium 9.3 8.4-10.2 mg/dL Bilirubin Total 0.8 0.0-1.0 mg/dL Aspartate Amino Transferase 31 5-37 U/L Slight Hemolysis.Interpret result with caution. Alanine Aminotransferase 8 0-40 U/L Total Protein 7.1 6.5-8.0 g/dL Albumin Level 3.5 3.5-5.0 g/dL Alkaline Phosphatase 74 39-117 U/L Lipid Panel Reviewed date:03/01/2024 12:18:48 PM Interpretation: Performing Lab:[address] [phone] Notes/Report: Triglycerides 76 <150 mg/dL Desirable Triglyceride: less than 150 mg/dL Borderline High Triglyceride 150-199 mg/dL High Triglyceride: 200-499 mg/dL Very High Triglyceride: greater than or equal to 5OO mg/dL Cholesterol 119 <200 mg/dL Desirable Cholesterol: less than 200 mg/dL Borderline High Cholesterol: 200-239 mg/dL High Cholesterol: greater than 239 mg/dL LDL Cholesterol Calculated 60 <100 mg/dL Desirable LDL: less than 100 mg/dL Near Optimal/Above Optimal LDL: 110-129 mg/dL Borderline High LDL: 130-159 mg/dL High LDL: 160-189 mg/dL Very High LDL: greater than or equal to 190 mg/dL HDL Cholesterol 44 >40 mg/dL Desirable HDL: greater than 40 mg/dL Note: This HDL assay may give artificially low results in patients with liver disease. PSA,Total (Free>4and<10) Reviewed date:03/01/2024 12:19:16 PM Interpretation: Performing Lab:[address] [phone] Notes/Report: PSA,Total (Free>4and<10) 0.20 0.00-4.00 ng/mL A Free PSA was not performed: The percentage of Free PSA can be used to enhance the differentiation of prostate cancer from benign prostatic disease in subjects whose PSA levels are between 4.0 and 10.0 ng/mL. For subjects whose PSA levels are below 4.0 or above 10.0 ng/mL, the risk of prostate cancer is determined on the basis of the PSA alone. Therefore the % Free PSA is recommended only for those subjects whose PSA levels are between 4.0 and 10.0 ng/mL. PSA methodology: Martínez Alinity i Chemiluminescent Microparticle Immunoassay (CMIA) REASON FOR VISIT Annual labs Encounters Encounter Location Date Provider Diagnosis oMris Yu MD [address] [place] [address] [address] [place], [place] [phone] 03/01/2024 Moris Yu Pure hypercholestero lemia E78.00 ; Thrombocytopenia D69.6 and Chronic congestive heart failure, unspecified heart failure type I50.9 ASSESSMENTS Encounter Date Diagnosis Assessment Notes Treatment Notes Treatment Clinical Notes 03/01/2024 Pure hypercholestero lemia (ICD-10 - E78.00) 03/01/2024 Thrombocytopenia (IC D-10 - D69.6) 03/01/2024 Chronic congestive h eart failure, unspecified heart failure type (ICD-10 - I50.9) PLAN OF TREATMENT Pending Test Test Name Order Date UA ClnCatch+Micro w/rflx Cult 03/01/2024 Next Appt Details Provider Name:Moris delgadillo, 03/08/2024 11:00:00 AM, [address] [place] [address], [address], [place], [place], [phone],
--- OUTSIDE RECORDS SUMMARY | 2024-03-01 12:26 | XMS_ITS ---
Author Organization Moris Yu MD Address [address] [place] [phone] Care Team Providers Care Screen Repairer Crusher Name Role Phone Moris Yu Primary Care [...] Location Date Provider Diagnosis Moris Yu MD [address] [place] [address] [address] [place], [place] [phone] 09/25/2023 Moris uY Status post insertio n of drug eluting [...] recurrence Next Appt Details Provider Name:Moris delgadillo, 03/08/2024 11:00:00 AM, [address], [address], [place], [place], [phone], Progress Notes * Examination Category Sub-Category Detail [...]
--- OUTSIDE RECORDS SUMMARY | 2024-03-01 12:27 | XMS_ITS | Continuity of Care Document ---
Author Name [facility] Organization [facility] Care Team Providers Care Opthalmic Tech Name Role Phone [facility] Unavailable Unavailable Medications Combined list of outpatient medications from Department of Defense and Veterans Affairs facilities.Medications provided include 1) outpatient medications from the last 15 months, and 2) patient-reported medications. Medication Details Route Status Patient Instructions Prescription Expires Prescription Number Last Dispense Date Ordering Provider Order Date Order Qty Source ALLOPURINOL (ALLOPURINO L), 100MG, TABLET, ORAL, [facility], 1000 ea. BOTTLE Active [id number] 4 2023 90 Pharmac y Data Transac tion Service Facilit y AMOX TR-POTASSIU M CLAVULANATE (AMOXICILLI N/POTASSIUM CLAV), 875-125 MG, TABLET, ORAL, AUROBINDO [facility]ARM, 20 ea. BOTTLE Active [id number] 4 2023 14 Pharmac y Data Transac tion Service Facilit y ATORVASTATI N CALCIUM (atorvastat in calcium), 80 MG, TABLET, ORAL, PRAVIN PHARMACEU, 500 ea. BOTTLE Active [id number] 4 2023 90 Pharmac y Data Transac tion Service Facilit y BISOPROLOL FUMARATE (bisoprolol fumarate), 5 MG, TABLET, ORAL, PT PAL., 100 ea. BOTTLE Active [id number] 4 2023 90 Pharmac y Data Transac tion Service Facilit y BISOPROLOL FUMARATE (bisoprolol fumarate), 5 MG, TABLET, ORAL, [employer] 100 ea. BOTTLE Active [id number] 4 2023 90 Pharmac y Data Transac tion Service Facilit y ELIQUIS (APIXABAN), 5 MG, TABLET, ORAL, [facility] , 60 ea. BOTTLE Active [id number] 4 2023 180 Pharmac y Data Transac tion Service Facilit y ELIQUIS (APIXABAN), 5 MG, TABLET, ORAL, [facility] , 60 ea. BOTTLE Active [id number] 2023 180 Pharmac y Data Transac tion Service Facilit y ELIQUIS (APIXABAN), 5 MG, TABLET, ORAL, [facility] , 60 ea. BOTTLE Cancele d [id number] : 2023 0 Pharmac y Data Transac tion Service Facilit y ELIQUIS (APIXABAN), 5 MG, TABLET, ORAL, [facility] , 60 ea. BOTTLE Cancele d [id number] : 2023 0 Pharmac y Data Transac tion Service Facilit y ELIQUIS (APIXABAN), 5 MG, TABLET, ORAL, [facility] , 60 ea. BOTTLE Active [id number] 4 2023 60 Pharmac y Data Transac tion Service Facilit y FINASTERIDE (FINASTERID E), 5 MG, TABLET, ORAL, EXELAN PHARMACE, 90 ea. BOTTLE Active [id number] 4 2023 90 Pharmac y Data Transac tion Service Facilit y FINASTERIDE (FINASTERID E), 5 MG, TABLET, ORAL, EXELAN PHARMACE, 90 ea. BOTTLE Active [id number] 4 2023 90 Pharmac y Data Transac tion Service Facilit y FINASTERIDE (FINASTERID E), 5 MG, TABLET, ORAL, EXELAN PHARMACE, 90 ea. BOTTLE Active [id number] 4 2023 90 Pharmac y Data Transac tion Service Facilit y MULTAQ (DRONEDARON E HYDROCHLORI DE), 400 MG, TABLET, ORAL, SANOFI-AVEN TIS, 60 ea. BOTTLE Active [id number] 4 2023 180 Pharmac y Data Transac tion Service Facilit y MULTAQ (DRONEDARON E HYDROCHLORI DE), 400 MG, TABLET, ORAL, SANOFI-AVEN TIS, 60 ea. BOTTLE Active [id number] 4 2023 60 Pharmac y Data Transac tion Service Facilit y MULTAQ (DRONEDARON E HYDROCHLORI DE), 400 MG, TABLET, ORAL, SANOFI-AVEN TIS, 60 ea. BOTTLE Active [id number] 4 2023 60 Pharmac y Data Transac tion Service Facilit y POTASSIUM CITRATE (POTASSIUM CITRATE), 10MEQ, TABLET SA, ORAL, UPSHER PICKERING, 100 ea. BOTTLE Active [id number] 4 2023 200 Pharmac y Data Transac tion Service Facilit y POTASSIUM CITRATE (POTASSIUM CITRATE), 10MEQ, TABLET SA, ORAL, UPSHER PICKERING, 100 ea. BOTTLE Active [id number] 4 2023 200 Pharmac y Data Transac tion Service Facilit y Immunizations Combined list of available immunizations from the Department of Defense and Veterans Affairs facilities. Immunization Series Date Given Administered By Site Reaction Lot Number CVX Code Drug General Repairer Status Comments Source Tdap 2019 BOGDASARIAN, () Not Given Tdap [facility] Influenza, injectable, MDCK, quadrivalent, preservative 2018 ANNABEL,D () Not Given Influenza , injectabl e, MDCK, quadrival ent, preservat mele [facility] zoster recombinant 2018 ANNABEL,D () Not Given [...]
--- OUTSIDE RECORDS SUMMARY | 2024-03-01 12:27 | XMS_ITS | Patient Health Record ---
Author Organization Moris Yu MD Address [address] [place] [phone] Care Team Providers Care Nuclear Chemistry Technician Name Role Phone Moris Yu Primary Care Provider [phone] ALLERGIES Allergen (clinical drug ingredient) Drug/Non Drug Allergy documented on EMR Reaction Allergy Type Onset Date Status azithromycin Zithromax Z-Jhonny severe diarrhea Drug Allergy Active penicillin G Penicillin G Potassium rash Drug Allergy Active Doxycycline Calcium hives Drug Allergy Active Gadolinium and/or gadolinium compound (FN) gadalinium (uncoded) hives Allergy Active Gadavist hives Drug Allergy Active RESULTS Component Value Reference Range Notes NM nicolás perf SPECT rest & str Reviewed date:03/27/2023 05:18:34 PM Interpretation: Performing Lab: Notes/Report: [address] [address] Nuclear Medicine Report Signed Patient: Erasmo Quevedo MR#: [id number] 70 : 1945 Acct:[id number] Age/Sex: 77 / M ADM Date: 03/24/23 Loc: HO.CARD Attending Dr: Joon Hopper MD Ordering Physician: Joon Hopper MD Date of Service: 03/24/23 Procedure(s): NM nicolás perf SPECT rest str Accession Number(s): [id number] cc: Moris Yu MD; Joon Hopper MD [...] in OV> 03/27/23 1458 DD/ 1245 TD/TT: Stamp Pad Maker: CT chest wo con Reviewed date:06/25/2023 05:49:35 PM Interpretation: Performing Lab: Notes/Report: [address] [address] [address] Scan Report Signed Patient: Erasmo Quevedo MR#: [id number] 70 : 1945 Acct:[id number] Age/Sex: 78 / M ADM Date: 06/19/23 Loc: HO.CT Attending Dr: Sebastian Patricia MD Ordering Physician: Sebastian Patricia MD Date of Service: 06/19/23 Procedure(s): CT chest wo IV con Accession Number(s): [id number] cc: Moris Yu MD; Sebastian Patricia MD [...] in OV> 06/24/23 1154 DD/ 1042 TD/TT: Stamp Pad Maker: SLOANE Adler Reviewed date:07/14/2023 08:13:36 PM Interpretation: Performing Lab:[facility], [address] [place] [phone] Notes/Report: Ebenezer Adler See Note Specimen held untested for 24 hours; Call to request Chemistry testing. Liver Panel Reviewed date:07/14/2023 08:11:47 PM Interpretation: Performing Lab:[facility], [address] [place] [phone] Notes/Report: Bilirubin Total 1.0 0.0-1.0 mg/dL Bilirubin Direct 0.4 0.0-0.5 mg/dL Aspartate Amino Transferase 23 5-37 U/L Alanine Aminotransferase 20 0-40 U/L Total Protein 7.5 6.5-8.0 g/dL Albumin Level 3.8 3.5-5.0 g/dL Alkaline Phosphatase 63 39-117 U/L Lipid Panel with Reflex Reviewed date:07/14/2023 08:11:57 PM Interpretation: Performing Lab:[facility], [address] [place] [phone] Notes/Report: Triglycerides 97 <150 mg/dL Desirable Triglyceride: [...] Blood Reviewed date:08/21/2023 06:52:52 AM Interpretation: Performing Lab:[facility], [address] [place] [phone] Notes/Report: Glucose, Whole Blood 117 60-115 mg/dL METER # : [id number] Urine Culture Reviewed date:08/22/2023 12:41:19 PM Interpretation: Performing Lab:[facility], [address] [place] [phone] Notes/Report: Urine Culture No growth. UA ClnCatch+Micro w/rflx Cul t Reviewed date:08/22/2023 04:59:33 PM Interpretation: Performing Lab:[facility], [address] [place] [phone] Notes/Report: Urine, Catheterized Color Urine Dark Yellow Appearance Urine Cloudy PH 6.5 5.0-9.0 Glucose Urine UA Negative Negative mg/dL Urine Blood Large (3+) Negative Specific [place] - Urine 1.025 1.005-1.025 Urine Protein Trace [...] date:08/21/2023 06:49:40 AM Interpretation: Performing Lab: Notes/Report: [address] [address] [address] Scan Report Signed Patient: Erasmo Quevedo MR#: [id number] 70 : 1945 Acct:[id number] Age/Sex: 78 / M ADM Date: 08/20/23 Loc: HO.ED Attending Dr: Ordering Physician: Mercedes Gonzales Date of Service: 08/20/23 Procedure(s): CT soft tissue neck w IV con Accession Number(s): [id number] cc: Moris Yu MD; Mercedes Gonzales EXAMINATION: [...] Klein in OV> 08/20/232051 DD/ 30 TD/TT: Stamp Pad Maker: CT head/brain wo con Reviewed date:08/21/2023 06:50:20 AM Interpretation: Performing Lab: Notes/Report: [address] [address] [address] Scan Report Signed Patient: Erasmo Quevedo MR#: [id number] 70 : 1945 Acct:[id number] Age/Sex: 78 / M ADM Date: 08/20/23 Loc: HO.ED Attending Dr: Ordering Physician: Mercedes Gonzales Date of Service: 08/20/23 Procedure(s): CT head/brain wo IV con Accession Number(s): [id number] cc: Moris Yu MD; Mercedes Gonzales EXAMINATION: [...] Klein in OV> 08/20/232036 DD/ 29 TD/TT: Stamp Pad Maker: CT facial bones wo con Reviewed date:08/21/2023 06:51:02 AM Interpretation: Performing Lab: Notes/Report: [address] [address] [address] Scan Report Signed Patient: Erasmo Quevedo MR#: [id number] 70 : 1945 Acct:[id number] Age/Sex: 78 / M ADM Date: 08/20/23 Loc: HO.ED Attending Dr: Ordering Physician: Mercedes Gonzales Date of Service: 08/20/23 Procedure(s): CT facial bones wo IV con Accession Number(s): [id number] cc: Moris Yu MD; Mercedes Gonzales EXAMINATION: [...] MD in OV> 08/20/232302 DD/ 42 TD/TT: Stamp Pad Maker: TH US abdomen limited Reviewed date:08/21/2023 06:51:42 AM Interpretation: Performing Lab: Notes/Report: [address] [address] Ultrasound Report Signed Patient: Erasmo Quevedo MR#: [id number] 70 : 1945 Acct:[id number] Age/Sex: 78 / M ADM Date: 08/20/23 Loc: HO.ED Attending Dr: Ordering Physician: Mercedes Gonzales Date of Service: 08/20/23 Procedure(s): US abdomen limited Accession Number(s): [id number] cc: Moris Yu MD; Mercedes Gonzales EXAMINATION: [...] Klein in OV> 08/20/232006 DD/ 99 TD/TT: Stamp Pad Maker: XR chest 1V Reviewed date:08/21/2023 06:52:43 AM Interpretation: Performing Lab: Notes/Report: [address] [address] XRay Report Signed Patient: Erasmo Quevedo MR#: [id number] 70 : 1945 Acct:[id number] Age/Sex: 78 / M ADM Date: 08/20/23 Loc: HO.ED Attending Dr: Ordering Physician: Mercedes Gonzales Date of Service: 08/20/23 Procedure(s): XR chest 1V Accession Number(s): [id number] cc: Moris Yu MD; Mercedes Gonzales EXAMINATION: [...] MD in OV> 08/20/231931 DD/ 43 TD/TT: Stamp Pad Maker: Complete Blood Count no Diff Reviewed date:08/21/2023 05:13:39 PM Interpretation: Performing Lab:[facility], [address] [place] [phone] Notes/Report: White Blood Count 10.3 4.8-10.8 X10*3/uL [...] ff Reviewed date:08/21/2023 06:48:20 AM Interpretation: Performing Lab:[facility], [address] [place] [phone] Notes/Report: White Blood Count 10.0 4.8-10.8 X10*3/uL [...] Panel Reviewed date:08/21/2023 06:52:11 AM Interpretation: Performing Lab:[facility], [address] [place] [phone] Notes/Report: Sodium 138 135-145 mmol/L Potassium 4.3 [...] Estimated Glomerular Filt Rate 47 NOTE: For -Chadian individuals, multiply the result by 1.210. Chronic [...] Phosphorus Reviewed date:08/21/2023 06:48:29 AM Interpretation: Performing Lab:[address] [phone] Notes/Report: Phosphorus 2.6 2.7-4.5 mg/dL Magnesium Reviewed date:08/21/2023 06:47:56 AM Interpretation: Performing Lab:[address] [address] Notes/Report: Magnesium 1.9 1.6-2.6 mg/dL Venous Blood Gases - POC Reviewed date:08/21/2023 06:47:48 AM Interpretation: Performing Lab:[address] [address] Notes/Report: VBG pH 7.40 7.32-7.43 METER #: [id number] additional_comment: Ganga mckinney VBG pCO2 37 METER #: [id number] additional_comment: Ganga mckinney VBG pO2 26 METER #: [id number] additional_comment: Ganga mckinney VBG Base Excess -0.9 METER #: [id number] additional_comment: Ganga mckinney VBG HCO3 23 22-26 mmol/L METER #: [id number] additional_comment: Ganga mckinney VBG O2 % Saturation 36.0 METER #: [id number] additional_comment: Ganga calvozgayathri CDiff Gene PCR Reviewed date:08/22/2023 12:32:10 PM Interpretation: Performing Lab:[facility], [address] [place] [phone] Notes/Report: CALLED ICU 1245 LEAT CDiff Gene PCR NEGATIVE Negative If C. difficile strongly suspected despite one negative test, a second test may be sent vs. empiric treatment for C. difficile infection. Complete Blood Count no Diff Reviewed date:08/22/2023 12:42:16 PM Interpretation: Performing Lab:[facility], [address] [place] [phone] Notes/Report: White Blood Count 8.4 4.8-10.8 X10*3/uL [...] Panel Reviewed date:08/22/2023 12:40:03 PM Interpretation: Performing Lab:[facility], [address] [place] [phone] Notes/Report: Sodium 140 135-145 mmol/L Potassium 3.8 [...] Estimated Glomerular Filt Rate 45 NOTE: For -Chadian individuals, multiply the result by 1.210. Chronic Kidney Disease: Estimated GFR < 60 mL/min/1.73m2 Severe Kidney Disease: Estimated GFR < 15 mL/min/1.73m2 Glucose Random 92 60-115 mg/dL Calcium 9.2 8.4-10.2 mg/dL Phosphorus Reviewed date:08/22/2023 12:38:52 PM Interpretation: Performing Lab:[address] [address] Notes/Report: Phosphorus 3.0 2.7-4.5 mg/dL Magnesium Reviewed date:08/22/2023 12:32:17 PM Interpretation: Performing Lab:[address] [address] Notes/Report: Magnesium 2.1 1.6-2.6 mg/dL XR chest 1V Reviewed date:08/22/2023 12:39:44 PM Interpretation: Performing Lab: Notes/Report: [address] [address] XRay Report Signed Patient: Erasmo Quevedo MR#: [id number] 70 : 1945 Acct:[id number] Age/Sex: 78 / M ADM Date: 08/21/23 Loc: [facility] 470-[address]: Pat Patricia NP Ordering Physician: Pat Patricia NP Date of Service: 08/22/23 Procedure(s): XR chest 1V Accession Number(s): [id number] cc: Moris Yu MD; Pat Patricia NP [...] on chest CT scan Dictated By: Aura Timomns MD Signed By: <Electronically signed by Aura Timmons MD in OV> 08/22/23 1152 DD/ 1030 TD/TT: Stamp Pad Maker: Complete Blood Count no Diff Reviewed date:08/23/2023 08:05:06 PM Interpretation: Performing Lab:[address] [address] Notes/Report: White Blood Count 7.5 4.8-10.8 X10*3/uL [...] Panel Reviewed date:08/23/2023 08:05:30 PM Interpretation: Performing Lab:[address] [address] Notes/Report: Sodium 142 135-145 mmol/L Potassium 3.5 [...] Estimated Glomerular Filt Rate 43 NOTE: For -Chadian individuals, multiply the result by 1.210. Chronic Kidney Disease: Estimated GFR < 60 mL/min/1.73m2 Severe Kidney Disease: Estimated GFR < 15 mL/min/1.73m2 Glucose Random 97 60-115 mg/dL Calcium 9.2 8.4-10.2 mg/dL XR chest 1V Reviewed date:08/26/2023 06:24:12 PM Interpretation: Performing Lab: Notes/Report: [address] [address] XRay Report Signed Patient: Erasmo Quevedo MR#: [id number] 70 : 1945 Acct:[id number] Age/Sex: 78 / M ADM Date: 08/21/23 Loc: [facility] 468-[address]: Tamera BARRON Ordering Physician: Tamera Watts Date of Service: 08/25/23 Procedure(s): XR chest 1V Accession Number(s): [id number] cc: Tamera Watts; Moris Yu MD EXAMINATION: [...] in OV> 08/25/23 1901 DD/ 0600 TD/TT: Stamp Pad Maker: BOOM Dugan Acid Reviewed date:09/04/2023 04:43:19 PM Interpretation: Performing Lab:[facility], [address] [place] [phone] Notes/Report: Lactic Acid 1.5 0.5-2.0 mmol/L Urine Culture Reviewed date:09/05/2023 01:04:25 PM Interpretation: Performing Lab:[facility], [address] [place] [phone] Notes/Report: Urine Culture No growth. Blood Culture (First) Reviewed date:09/10/2023 01:28:56 PM Interpretation: Performing Lab:[facility], [address] [place] [address] Notes/Report: Blood Culture (First) No growth after 5 days. Blood Culture (Second) Reviewed date:09/10/2023 01:28:42 PM Interpretation: Performing Lab:[facility], [address] [place] [phone] Notes/Report: Blood Culture (Second) No growth after [address] chest wo con Reviewed date:09/04/2023 04:44:13 PM Interpretation: Performing Lab: Notes/Report: [address] [address] [address] Scan Report Signed Patient: Erasmo Quevedo MR#: [id number] 70 : 1945 Acct:[id number] Age/Sex: 78 / M ADM Date: 09/04/23 Loc: [facility]-[address]: Pat Patricia [employer] Ordering Physician: Keesha Stein Date of Service: 09/04/23 Procedure(s): CT chest wo IV con Accession Number(s): [id number] cc: Moris Yu MD; Keesha Stein EXAMINATION: [...] in OV> 09/04/23 1621 DD/ 1515 TD/TT: Stamp Pad Maker: TANIKA CT abdomen pelvis wo con Reviewed date:09/04/2023 04:44:58 PM Interpretation: Performing Lab: Notes/Report: [address] [address] [address] Scan Report Signed Patient: Erasmo Quevedo MR#: [id number] 70 : 1945 Acct:[id number] Age/Sex: 78 / M ADM Date: 09/04/23 Loc: [facility]-[address]: Pat Patricia NP Ordering Physician: Keesha Stein Date of Service: 09/04/23 Procedure(s): CT abdomen pelvis wo IV con Accession Number(s): [id number] cc: Moris Yu MD; Keesha Stein EXAMINATION: [...] in OV> 09/04/23 1621 DD/ 1515 TD/TT: Stamp Pad Maker: TANIKA XR chest 1V Reviewed date:09/04/2023 04:46:00 PM Interpretation: Performing Lab: Notes/Report: [address] [address] XRay Report Signed Patient: Erasmo Quevedo MR#: [id number] 70 : 1945 Acct:[id number] Age/Sex: 78 / M ADM Date: 09/04/23 Loc: HO.ED Attending Dr: Ordering Physician: Keesha Stein Date of Service: 09/04/23 Procedure(s): XR chest 1V Accession Number(s): [id number] cc: Moris Yu MD; Keesha Stein EXAMINATION: [...] in OV> 09/04/23 1444 DD/ 1300 TD/TT: Stamp Pad Maker: Complete Blood Count Auto Di ff Reviewed date:09/05/2023 01:08:06 PM Interpretation: Performing Lab:[facility], [address] [place] [address] Notes/Report: White Blood Count 7.4 4.8-10.8 X10*3/uL [...] Panel Reviewed date:09/05/2023 01:02:01 PM Interpretation: Performing Lab:[facility], [address] [place] [phone] Notes/Report: Sodium 139 135-145 mmol/L Potassium 3.9 [...] Estimated Glomerular Filt Rate 35 NOTE: For -Chadian individuals, multiply the result by 1.210. Chronic Kidney Disease: Estimated GFR < 60 mL/min/1.73m2 Severe Kidney Disease: Estimated GFR < 15 mL/min/1.73m2 Glucose Random 88 60-115 mg/dL Calcium 9.5 8.4-10.2 mg/dL Magnesium Reviewed date:09/05/2023 09:55:27 AM Interpretation: Performing Lab:[facility], [address] [place] [phone] Notes/Report: Magnesium 2.2 1.6-2.6 mg/dL FL guidance in [place] Reviewed date:09/10/2023 01:29:32 PM Interpretation: Performing Lab: Notes/Report: [address] [address] Fluoroscopy Report Signed Patient: Erasmo Quevedo MR#: [id number] 70 : 1945 Acct:[id number] Age/Sex: 78 / M ADM Date: 09/04/23 Loc: HO.S3 363-[address]: Pat Patricia NP Ordering Physician: Kuldip Ibarra MD Date of Service: 09/05/23 Procedure(s): FL guidance in OR Accession Number(s): [id number] cc: Kuldip Ibarra MD; Moris Yu MD [...] in OV> 09/09/23 1538 DD/ 1845 TD/TT: Stamp Pad Maker: TANG Creatinine Reviewed date:09/06/2023 04:10:25 PM Interpretation: Performing Lab:[facility], [address] [place] [phone] Notes/Report: Creatinine 1.63 0.5-1.4 mg/dL Creatinine Clr Calc Pharmacy 43.4 eGFR (calculated from the MDRD study equation) and eCrCl (calculated from the Cockcroft-Gault equation) are based on different parameters and may not yield comparable results. If eCrCl result is absurd, please check patient's height/weight. Estimated Glomerular Filt Rate 41 NOTE: For -Chadian individuals, multiply the result by 1.210. Chronic Kidney Disease: Estimated GFR < 60 mL/min/1.73m2 Severe Kidney Disease: Estimated GFR < 15 mL/min/1.73m2 Hold Lav - Possible Hematolo gy Reviewed date:09/07/2023 12:36:28 PM Interpretation: Performing Lab:[facility], [address] [place] [phone] Notes/Report: Hold Lav - Possible Hematology SEE NOTE Specimen will be held untested for 8 hours. Call Hematology if testing is desired. Basic Metabolic Panel Reviewed date:09/07/2023 12:37:28 PM Interpretation: Performing Lab:[facility], [address] [place] [phone] Notes/Report: Sodium 138 135-145 mmol/L Potassium 3.8 [...] Estimated Glomerular Filt Rate 58 NOTE: For -Chadian individuals, multiply the result by 1.210. Chronic Kidney Disease: Estimated GFR < 60 mL/min/1.73m2 Severe Kidney Disease: Estimated GFR < 15 mL/min/1.73m2 Glucose Random 98 60-115 mg/dL Calcium 8.7 8.4-10.2 mg/dL Lactic Acid Reviewed date:09/15/2023 10:08:39 AM Interpretation: Performing Lab:[address] [address] Notes/Report: Lactic Acid 1.3 0.5-2.0 mmol/L Blood Culture (First) Reviewed date:09/20/2023 08:17:24 PM Interpretation: Performing Lab:[facility], [address] [place] [phone] Notes/Report: Blood Culture (First) No growth after 5 days. Blood Culture (Second) Reviewed date:09/20/2023 08:16:12 PM Interpretation: Performing Lab:[address] [address] Notes/Report: Blood Culture (Second) No growth after 5 days. GI Panel Reviewed date:09/16/2023 04:20:02 PM Interpretation: Performing Lab:[address] [address] Notes/Report: Campylobacter Not Detected Not Detect. Plesiomonas [...] is performed by Multiplexed PCR, utilizing the Aspects Software Array. CT abdomen pelvis wo con Reviewed date:09/15/2023 10:09:52 AM Interpretation: Performing Lab: Notes/Report: [place] [address] [address] Scan Report Signed Patient: Erasmo Quevedo MR#: [id number] 70 : 1945 Acct:[id number] Age/Sex: 78 / M ADM Date: 09/14/23 Loc: .ED Attending Dr: Ordering Physician: Beverly Sanchez MD Date of Service: 09/14/23 Procedure(s): CT abdomen pelvis wo IV con Accession Number(s): [id number] cc: Moris Yu MD; Beverly Sanchez MD [...] MD in OV> 09/14/232200 DD/ 54 TD/TT: Stamp Pad Maker: SLOANE Complete Blood Count Auto Di ff Reviewed date:09/16/2023 04:25:25 PM Interpretation: Performing Lab:[facility], [address] [place] [phone] Notes/Report: White Blood Count 9.5 4.8-10.8 X10*3/uL [...] Panel Reviewed date:09/16/2023 04:19:35 PM Interpretation: Performing Lab:[facility], [address] [place] [phone] Notes/Report: Sodium 137 135-145 mmol/L Potassium 5.1 [...] Estimated Glomerular Filt Rate 52 NOTE: For -Chadian individuals, multiply the result by 1.210. Chronic Kidney Disease: Estimated GFR < 60 mL/min/1.73m2 Severe Kidney Disease: Estimated GFR < 15 mL/min/1.73m2 Glucose Random 87 60-115 mg/dL Calcium 9.0 8.4-10.2 mg/dL Hold Lav - Possible Hematolo gy Reviewed date:09/16/2023 04:13:06 PM Interpretation: Performing Lab:[facility], [address] [place] [phone] Notes/Report: Hold Lav - Possible Hematology SEE NOTE Specimen will be held untested for 8 hours. Call Hematology if testing is desired. Liver Panel Reviewed date:09/16/2023 04:11:11 PM Interpretation: Performing Lab:[facility], [address] [place] [phone] Notes/Report: Bilirubin Total 0.6 0.0-1.0 mg/dL Bilirubin Direct 0.2 0.0-0.5 mg/dL Slight Hem olysis Aspartate Amino Transferase 29 5-37 U/L Slight Hemolysis Alanine Aminotransferase 23 0-40 U/L Total Protein 6.6 6.5-8.0 g/dL Albumin Level 3.1 3.5-5.0 g/dL Alkaline Phosphatase 76 39-117 U/L Basic Metabolic Panel Fastin g Reviewed date:09/16/2023 04:12:46 PM Interpretation: Performing Lab:[facility], [address] [place] [phone] Notes/Report: Sodium 141 135-145 mmol/L Potassium 4.0 [...] Estimated Glomerular Filt Rate 56 NOTE: For -Chadian individuals, multiply the result by 1.210. Chronic Kidney Disease: Estimated GFR < 60 mL/min/1.73m2 Severe Kidney Disease: Estimated GFR < 15 mL/min/1.73m2 Glucose Fasting 76 60-99 mg/dL Calcium 9.1 8.4-10.2 mg/dL Complete Blood Count no Diff Reviewed date:09/18/2023 01:19:22 PM Interpretation: Performing Lab:[facility], [address] [place] [phone] Notes/Report: White Blood Count 7.8 4.8-10.8 X10*3/uL [...] g Reviewed date:09/18/2023 12:40:26 PM Interpretation: Performing Lab:[facility], [address] [place] [phone] Notes/Report: Sodium 139 135-145 mmol/L Potassium 3.7 [...] Estimated Glomerular Filt Rate 55 NOTE: For -Chadian individuals, multiply the result by 1.210. Chronic Kidney Disease: Estimated GFR < 60 mL/min/1.73m2 Severe Kidney Disease: Estimated GFR < 15 mL/min/1.73m2 Glucose Fasting 86 60-99 mg/dL Calcium 8.5 8.4-10.2 mg/dL XR KUB Reviewed date:09/19/2023 12:17:19 PM Interpretation: Performing Lab: Notes/Report: [address] [address] XRay Report Signed Patient: Erasmo Quevedo MR#: [id number] 70 : 1945 Acct:[id number] Age/Sex: 78 / M ADM Date: 09/15/23 Loc: HO.S3 370-[address]: Jefry Álvarez MD Ordering Physician: Jefry Álvarez MD Date of Service: 09/18/23 Procedure(s): XR KUB Accession Number(s): [id number] cc: Moris Yu MD; Jefry Álvarez MD [...] in OV> 09/19/23 1012 DD/ 1619 TD/TT: Stamp Pad Maker: SLOANE Complete Blood Count Auto Di ff Reviewed date:10/26/2023 09:59:23 AM Interpretation: Performing Lab:[facility], [address] [place] [phone] Notes/Report: White Blood Count 5.3 4.8-10.8 X10*3/uL [...] te Reviewed date:10/25/2023 02:39:29 PM Interpretation: Performing Lab:[address] [address] Notes/Report: Erythrocyte Sedimentation Rate 23 0-15 MM/HR Patients with polycythemia and many hemoglobin abnormalities may have depressed sed rates whereas patients with anemia may have elevated sed rates. Liver Panel Reviewed date:10/25/2023 02:40:10 PM Interpretation: Performing Lab:[facility], [address] [place] [phone] Notes/Report: Bilirubin Total 0.9 0.0-1.0 mg/dL Bilirubin Direct 0.4 0.0-0.5 mg/dL Aspartate Amino Transferase 18 5-37 U/L Alanine Aminotransferase 17 0-40 U/L Total Protein 6.8 6.5-8.0 g/dL Albumin Level 3.4 3.5-5.0 g/dL Alkaline Phosphatase 75 39-117 U/L Basic Metabolic Panel Reviewed date:10/26/2023 09:58:59 AM Interpretation: Performing Lab:[address] [address] Notes/Report: Sodium 141 135-145 mmol/L Potassium 4.3 3.3-5.1 mmol/L Chloride 110 96-108 mmol/L Carbon Dioxide 25 22-29 mmol/L Anion Gap 10 12-20 Blood Urea Nitrogen 20 9-16 mg/dL Creatinine 1.99 0.5-1.4 mg/dL Estimated Glomerular Filt Rate 33 NOTE: For -Chadian individuals, multiply the result by 1.210. Chronic Kidney Disease: Estimated GFR < 60 mL/min/1.73m2 Severe Kidney Disease: Estimated GFR < 15 mL/min/1.73m2 Glucose Random 107 60-115 mg/dL Calcium 9.6 8.4-10.2 mg/dL Urine Culture Reviewed date:11/19/2023 04:14:44 PM Interpretation: Performing Lab:[address] [address] Notes/Report: Urine Culture Report Result Urine Culture < 10,000 cfu/ml Complete Blood Count Auto Di ff Reviewed date:01/03/2024 12:30:08 PM Interpretation: Performing Lab:[address] [address] Notes/Report: White Blood Count 5.7 4.8-10.8 X10*3/uL [...] Panel Reviewed date:01/03/2024 12:18:50 PM Interpretation: Performing Lab:[facility], [address] [place] [address] Notes/Report: Sodium 139 135-145 mmol/L Potassium 4.4 3.3-5.1 mmol/L Chloride 110 96-108 mmol/L Carbon Dioxide 23 22-29 mmol/L Anion Gap 10 12-20 Blood Urea Nitrogen 17 9-16 mg/dL Creatinine 1.74 0.5-1.4 mg/dL Estimated Glomerular Filt Rate 38 NOTE: For -Chadian individuals, multiply the result by 1.210. Chronic Kidney Disease: Estimated GFR < 60 mL/min/1.73m2 Severe Kidney Disease: Estimated GFR < 15 mL/min/1.73m2 Glucose Random 97 60-115 mg/dL Calcium 9.7 8.4-10.2 mg/dL XR KUB Reviewed date:02/18/2024 03:50:04 PM Interpretation: Performing Lab: Notes/Report: [address] [place] [address] XRay Report Signed Patient: Erasmo Quevedo MR#: [id number] 70 : 1945 Acct:[id number] Age/Sex: 78 / M ADM Date: 02/15/24 Loc: HO.XRAY Attending Dr: Kuldip Ibarra MD Ordering Physician: Kuldip Ibarra MD Date of Service: 02/15/24 Procedure(s): XR KUB Accession Number(s): [id number] cc: Kuldip Ibarra MD; Moris Yu MD [...] by: Newton Elkins MD 02/17/2024 08:39 PM EST Dictated By: Newton Elkins MD Signed By: <Electronically signed by Newton Elkins MD in OV> 02/17/242038 DD/ 1150 TD/TT: 02/15/24 1205 Stamp Pad Maker: JINA Melgar+Philippe w/rflx Cul t (Not yet reviewed by provider) Interpretation: Performing Lab:[facility], [address] [place] [phone] Notes/Report: Urine, Clean Catch Color Urine Yellow Appearance Urine Hazy PH 6.0 5.0-9.0 Glucose Urine UA Negative Negative mg/dL Urine Blood Large (3+) Negative Specific [place] - Urine 1.020 1.005-1.025 Urine Protein Trace [...] ff Reviewed date:03/01/2024 11:46:39 AM Interpretation: Performing Lab:[facility], [address] [place] [phone] Notes/Report: White Blood Count 5.6 4.8-10.8 X10*3/uL [...] NRBC Abs Auto 0.000 0.0-0.012 X10*3/uL Comprehensive [place]. Panel Fa st Reviewed date:03/01/2024 12:19:08 PM Interpretation: Performing Lab:[facility], [address] [place] [phone] Notes/Report: Sodium 141 135-145 mmol/L Potassium 4.4 [...] Panel Reviewed date:03/01/2024 12:18:48 PM Interpretation: Performing Lab:[facility], [address] [place] [phone] Notes/Report: Triglycerides 76 <150 mg/dL Desirable Triglyceride: [...] (Free>4and<10) Reviewed date:03/01/2024 12:19:16 PM Interpretation: Performing Lab:[facility], [address] [place] [phone] Notes/Report: PSA,Total (Free>4and<10) 0.20 0.00-4.00 ng/mL A [...] between 4.0 and 10.0 ng/mL. PSA methodology: [employer] Alinity i Chemiluminescent Microparticle Immunoassay (CMIA) REASON FOR REFERRAL No Information MEDICATIONS Medication [...] Inhalation every 4 hrs 07/09/2021 Not-Takin g Spiriva Respimat 2.5 MCG/ACT 2 puffs Inhalation [...] needed Inhalation every 4 hrs Not-Takin g Escitalopram Oxalate 10 MG 1 tablet Orally [...] Flu Vaccine Unknown 12/07/2011 Administered given at [facility] Flu Vaccine Unknown 11/18/2012 Administered received at [facility] PPSV23 (Pnemovax) IM Intramuscular 09/19/2013 Administered Flu Vaccine Unknown 12/03/2013 Administered was given b [facility] Flu Vaccine Unknown 11/27/2014 Administered Given by purvi aldridge TDaP IM Intramuscular 02/10/2015 Administered Fluarix Quadrivalent Unknown 12/08/2015 Administered Gi micheal by through a Flu Clinic Fluarix Quadrivalent IM Intramuscular 11/27/2017 Administe red Shingrix Unknown 01/11/2018 Administered [facility] Shingrix Unknown 01/11/2018 Administered [facility] Shingrix Unknown 05/17/2018 Administered [facility] Fluarix Quadrivalent Unknown 12/05/2018 Administered [facility] PPSV23 (Pnemovax) IM Intramuscular 12/18/2018 Administered Influenza High Dose Unknown 11/05/2019 Administered Melisa alejandra's Covid Vaccine Unknown 05/13/2020 Administered Moderna Covid [...] Dysfunction (607.84) Active confirmed Erectile dysfun ction (157144273) Problem Thrombocytopenia (D69.6) Active confirmed 570771013 Problem Paroxysmal atrial fibrillation (I48.0) Active confirmed 042594072 Problem Tubular adenoma of colon (D12.6) Active confirmed 601112474 Problem History of coronary artery disease (Z86.79) Active confirmed 573020287 Problem Sarcoidosis (D86.9) Active confirmed 31 695750 Problem Dysthymia (F34.1) Active confirmed 7866 7006 Problem 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) Active confirmed 309127117 Problem Pure hypercholesterolemia (E78.00) Active confirmed 205935222 Problem Hypercholesterolemia (E78.00) Active confirmed Hypercholestero lemia (01794946) Problem BMI 32.0-32.9,adult (Z68.32) Active confirmed 455965731 Problem Moderate asthma without complication, unspecified whether persistent (J45.909) Active confirmed 394473090 Problem Chronic congestive heart failure, unspecified heart failure type (I50.9) Active confirmed 29158130 Problem Avascular necrosis o f bone of right hip (M87.051) Active confirmed 417402311 Problem 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) Active confirmed 648988745 Problem Hypersomnolence (G47.10) Active confirmed Hypersomnia (06777507) Problem Other ventricular tachycardia (I47.29) Active confirmed 51852905 Problem Acute constipation (K59.00) Active confirmed 623253559 VITAL SIGNS Blood pressure diastolic 78 mm Hg 09/25/2023 Height 70 in 09/25/2023 Blood pressure systolic 102 mm Hg 09/25/2023 Weight 214 lbs 09/25/2023 BMI 30.70 kg/m2 09/25/2023 Encounters Encounter Location Date Provider Diagnosis Moris Yu MD [address] [place] [address] [id number] 03/17/2023 Moris Yu MD [address] [place] [address] [id number] 07/14/2023 Moris Yu Pure hypercholestero lemia E78.00 Moris Yu MD [address] [place] [address] [id number] 03/01/2023 Moris Yu MD [address] [place] [address] [id number] 03/01/2024 Moris Yu Pure hypercholestero lemia E78.00 ; Thrombocytopenia D69.6 and Chronic congestive heart failure, unspecified heart failure type I50.9 Moris Yu MD [address] [place] [address] [id number] 07/20/2023 Moris Yu Chronic congestive h eart failure, unspecified heart failure type I50.9 ; Hypercholesterolemia E78.00 ; Nonsustained ventricular tachycardia I47.2 and Other ventricular tachycardia I47.29 Moris Yu MD [address] [place] [address] [id number] 08/29/2023 Moris Yu Acute pneumonia J18. 9 ; Thrombocytopenia D69.6 ; Elevated serum creatinine R79.89 ; Lower extremity edema R60.0 ; Gross hematuria R31.0 and Dental abscess K04.7 Moris Yu MD [address] [place] [address] [id number] 09/25/2023 Moris Yu Status post insertio n of drug eluting coronary artery stent Z95.5 ; Paroxysmal atrial fibrillation I48.0 and Chronic congestive heart failure, unspecified heart failure type I50.9 Moris Yu MD [address] [place] [address] [id number] 09/04/2023 Moris Yu MD [address] [place] [address] [id number] 08/28/2023 Moris Yu MD [address] [place] [address] [id number] 09/08/2023 Moris Yu MD [address] [place] [address] [id number] 09/08/2023 Moris Yu MD [address] [place] [address] [id number] 09/19/2023 Moris Yu MD [address] [place] [address] [id number] 09/11/2023 Moris Yu Paroxysmal atrial fibrillation I48.0 and Gross hematuria R31.0 Moris Yu MD [address] [place] [address] [id number] 09/14/2023 Moris Yu Dysuria R30.0 ; Acut e diarrhea R19.7 and Acute constipation K59.00 ASSESSMENTS Encounter Date Diagnosis Assessment Notes Treatment Notes Treatment Clinical Notes 07/14/2023 Pure hypercholestero lemia (ICD-10 - E78.00) 03/01/2024 Pure hypercholestero lemia (ICD-10 - E78.00) 07/20/2023 [...] laxatives, is now having diarrhea. will observe 03/01/2024 Thrombocytopenia (IC D-10 - D69.6) 07/20/2023 Nonsustained ventric ular tachycardia (ICD-10 - [...] out and not being bothered as much 03/01/2024 Chronic congestive h eart failure, unspecified heart failure type (ICD-10 - I50.9) 07/20/2023 Other ventricular tachycardia (ICD-10 - I47.29) [...] 2 VIEW PA & LAT 09/07/2015 XR CHEST 2 VIEW PA & LAT 11/07/2016 XR GI SERIES 01/18/2013 CT head/brain wo con 07/28/2022 UA ClnCatch+Micro w/rflx Cult 03/01/2024 Future Test Test Name Order Date XR CHEST 2 VIEW PA & LAT 09/05/2023 Next Appt Details Provider Name:Moris Wiggins ier, 03/08/2024 11:00:00 AM, [address], [address], [place], [place], [phone], Insurance Providers Payer Name Payer Address Payer Phone Subscriber Number Group Number Insured Name Patient Relationship to Insured Coverage Start Date Coverage End Date MEDICARE NHIC [address] [place] [address] [id number] Erasmo Quevedo Self - patient is the insured [facility] [address] [place] [address] [id number] Erasmo Quevedo Self - patient is the insured MEDICAL (GENERAL) HISTORY Medical History History ICD Code colonoscopy - 04/2006 - repea t 5 years. 07/27/12; colonoscopy 05/14/2013 - repeat 5 years; Colonoscopy done 11/19/[address] Srivastava - no further testing indicated. Achilles bursitis or tendinitis HX of Kidney Stones Incidental Lung Nodule
--- OUTSIDE RECORDS SUMMARY | 2024-03-01 12:27 | XMS_ITS ---
Author Organization Moris Yu MD Address [address] [place], [place] [phone] Care Team Providers Care Systems Software Manager Name Role Phone Moris Yu Primary Care Provider [phone] REASON FOR VISIT Discharge summary rec'd Encounters Encounter Location Date Provider Diagnosis Moris Yu MD [address] [facility] [address] [place], [place] [phone] 09/19/2023 Moris Yu PLAN OF TREATMENT Next Appt Details Provider Name:Moris Wiggins ier, 03/08/2024 11:00:00 AM, [address], [address], [place], [place], [phone],
== END 2024-03-01 10:47 | disposition home or self-care (01) ==
LOC: HO.LNP 10:46
PROVIDERS: Visit Provider Internal Medicine
DX: E78.00 Pure hypercholesterolemia, unspecified (principal); D69.6 Thrombocytopenia, unspecified; I50.9 Heart failure, unspecified; Z12.5 Encounter for screening for malignant neoplasm of prostate
CPT/HCPCS: 80053; 80061; 81001; 84153; 85025; 87086

== ENCOUNTER 2024-03-26 13:11 | Outpatient (AMB) | payer MEDICARE, OTHER, SELFPAY ==
[2024-03-26 13:13] VITALS: BP 80/58; PULSE 69; O2SAT 90
--- NOTE | 2024-03-26 13:13 | HO.NEPHOV_ITS ---
Vital Signs 03/26/24 13:13 Height 5 ft 10 in BP 80/58 L Blood Pressure Location Rt brachial Position Sitting Pulse 69 Pulse Source Pulse Oximeter Pulse Oximetry (%) 90 L Oxygen Delivery Method Room Air Intake Visit Reasons: Feb follow up/ Conf Date Night Caregiver Required: No Accompanied by: Spouse Allergies gadobenic acid [Multihance] Allergy (Severe, Verified 03/26/24 13:15) Rash azithromycin [From ZITHROMAX Z-JOYCE] Allergy (Intermediate, Verified 03/26/24 13:15) HIVES Iodinated Contrast Media [IV CONTRAST] Allergy (Intermediate, Verified 03/26/24 13:15) HIVES Penicillins Allergy (Mild, Verified 03/26/24 13:15) RASH Medication List - Last Reconciled 03/26/24 by Mau Hodge MD allopurinol 100 mg PO DAILY apixaban (Eliquis) 5 mg PO BID atorvastatin 80 mg PO BEDTIME brimonidine 0.1% (Alphagan P) 1 drp ophthalmic (eye) BID dronedarone (Multaq) 400 mg PO Q12H 90 days finasteride 5 mg PO DAILY 90 days finasteride 5 mg PO DAILY mometasone-formoterol 200-5 mcg/actuation (Dulera) 1 puff inhalation BID montelukast 10 mg PO DAILY@1200 potassium citrate ER 10 mEq PO BID tamsulosin 0.4 mg PO BEDTIME tiotropium bromide 2.5 mcg/actuation (Spiriva Respimat) 2 inhalations inhalation DAILY HPI Comments Details: 78-year-old male with pertinent history of paroxysmal atrial flutter on Eliquis, BPH, 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 Underwent cystoscopy and stent placement. Stent was removed in October 2023. Blood pressure has been relatively low. Bisoprolol has been cut by 50% by Cardiology. He was accompanied by his today. He is still has relatively low blood pressure. He has been able to maintain fluid intake. No nausea or vomiting. No chest pain no palpitation. No urinary symptoms at present. Recent creatinine was 1.9 as of October 23 which is higher than the baseline. 03/26/2024. Seen by Urology recently still has a stone. Waiting for a follow up CT scan followed by a possible procedure. [facility] Medical History Pulmonary nodules Chronic restrictive lung disease Chronic renal disease Nonsustained ventricular tachycardia PVCs (premature ventricular contractions) CAD (coronary artery disease) Dyspnea Chronic allergic rhinitis Asthma Sarcoidosis Surgical History H/O hernia repair Stented coronary artery Family History Father Atrial fibrillation Mother Atrial fibrillation Other Asthma Social History Household Members: Spouse Housing: House Do you presently have visiting nurse or other home services: No Alcohol intake: never Patient Tobacco Use Status: Never used Tobacco Tobacco use type: Cigar e-Cigarette/Vaping Use: Never Used Second Hand Smoke Exposure: No Advance Directives Date on File: 09/14/23 service: No Physical Exam Vital Signs: Last Vital Signs Pulse 69 03/26/24 13:13 BP 80/58 L 03/26/24 13:13 Pulse Ox 90 L 03/26/24 13:13 Oxygen Delivery Method Room Air 03/26/24 13:13 Results Reviewed Nephrology Results: Hgb 13.1 g/dl (14.0-18.0) L 03/01/24 WBC 5.6 X10*3/uL (4.8-10.8) 03/01/24 Plt Count 168 X10*3/uL (160-400) 03/01/24 Sodium 141 mmol/L (135-145) 03/01/24 Potassium 4.4 mmol/L (3.3-5.1) 03/01/24 Chloride 109 mmol/L (96-108) H 03/01/24 Carbon Dioxide 24 mmol/L (22-29) 03/01/24 BUN 16 mg/dL (9-16) 03/01/24 Creatinine 1.81 mg/dL (0.5-1.4) H 03/01/24 Calcium 9.3 mg/dL (8.4-10.2) 03/01/24 Urine Protein Trace mg/dL (Neg-Trace) 03/01/24 Assessment & Plan Assessment & Plan (1) ETELVINA (acute kidney injury): Comment: Due to obstructive uropathy. Code(s): N17.9 - Acute kidney failure, unspecified Category: Medical Plan: Renal function improved after leading obstruction. There has been a recent bump in serum creatinine. Creatinine was 1.9 as of October 23. This could be due to hypoperfusion. However no change in renal function with the last few Encouraged him to increase fluid intake. (2) Bilateral kidney stones: Code(s): N20.0 - Calculus of kidney Category: Medical Plan: Increase p.o. fluid intake Continue with lemonade Low-sodium diet. (3) HTN (hypertension): Code(s): I10 - Essential (primary) hypertension Category: Medical Plan: Blood pressure is better controlled after discontinue losartan. No need for antihypertensives at this time . Orders: Orders Basic Metabolic Panel 3 Months N20.0 - Calculus of kidney Coding Level of Care Code Est Pt Level 4 (23078) Diagnoses ETELVINA (acute kidney injury) N17.9 Bilateral kidney stones N20.0 HTN (hypertension) I10
--- OUTSIDE RECORDS SUMMARY | 2024-03-26 14:10 | XMS_ITS | Continuity of Care Document ---
Author Name [facility] Organization [facility] Care Team Providers Care Electro Tech Name Role Phone [facility] Unavailable Unavailable Medications Combined list of outpatient medications from Department of Defense and Veterans Affairs facilities.Medications provided include 1) outpatient medications from the last 15 months, and 2) patient-reported medications. Medication Details Route Status Patient Instructions Prescription Expires Prescription Number Last Dispense Date Ordering Provider Order Date Order Qty Source ALLOPURINOL (ALLOPURINO L), 100MG, TABLET, ORAL, '[facility], 1000 ea. BOTTLE Active [id number] 4 2023 90 Pharmac y Data Transac tion Service Facilit y AMOX TR-POTASSIU M CLAVULANATE (AMOXICILLI N/POTASSIUM CLAV), 875-125 MG, TABLET, ORAL, A[facility]OB[facility], 20 ea. BOTTLE Active [id number] 4 2023 14 Pharmac y Data Transac tion Service Facilit y ATORVASTATI N CALCIUM (atorvastat in calcium), 80 MG, TABLET, ORAL, PRAVIN PHARMACEU, 500 ea. BOTTLE Active [id number] 4 2023 90 Pharmac y Data Transac tion Service Facilit y BISOPROLOL FUMARATE (bisoprolol fumarate), 5 MG, TABLET, ORAL, [employer]., 100 ea. BOTTLE Active [id number] 4 2023 90 Pharmac y Data Transac tion Service Facilit y BISOPROLOL FUMARATE (bisoprolol fumarate), 5 MG, TABLET, ORAL, [employer] 100 ea. BOTTLE Active [id number] 2023 90 Pharmac y Data Transac tion Service Facilit y ELIQUIS (APIXABAN), 5 MG, TABLET, ORAL, [facility] , 60 ea. BOTTLE Active [id number] 2023 180 Pharmac y Data Transac tion Service Facilit y ELIQUIS (APIXABAN), 5 MG, TABLET, ORAL, [facility] , 60 ea. BOTTLE Active [id number] 2023 180 Pharmac y Data Transac tion Service Facilit y ELIQUIS (APIXABAN), 5 MG, TABLET, ORAL, [facility] , 60 ea. BOTTLE Cancele d [id number] : 2023 0 Pharmac y Data Transac tion Service Facilit y ELIQUIS (APIXABAN), 5 MG, TABLET, ORAL, [facility] , 60 ea. BOTTLE Cancele d [id number] : 2023 0 Pharmac y Data Transac tion Service Facilit y ELIQUIS (APIXABAN), 5 MG, TABLET, ORAL, [facility] , 60 ea. BOTTLE Active [id number] 2023 60 Pharmac y Data Transac tion Service Facilit y FINASTERIDE (FINASTERID E), 5 MG, TABLET, ORAL, EXELAN PHARMACE, 90 ea. BOTTLE Active [id number] 2023 90 Pharmac y Data Transac tion Service Facilit y FINASTERIDE (FINASTERID E), 5 MG, TABLET, ORAL, EXELAN PHARMACE, 90 ea. BOTTLE Active [id number] 4 2023 90 Pharmac y Data Transac tion Service Facilit y FINASTERIDE (FINASTERID E), 5 MG, TABLET, ORAL, EXELAN PHARMACE, 90 ea. BOTTLE Active [id number] 2023 90 Pharmac y Data Transac tion Service Facilit y MULTAQ (DRONEDARON E HYDROCHLORI DE), 400 MG, TABLET, ORAL, SANOFI-AVEN TIS, 60 ea. BOTTLE Active [id number] 2023 180 Pharmac y Data Transac tion Service Facilit y MULTAQ (DRONEDARON E HYDROCHLORI DE), 400 MG, TABLET, ORAL, SANOFI-AVEN TIS, 60 ea. BOTTLE Active [id number] 4 2023 60 Pharmac y Data Transac tion Service Facilit y MULTAQ (DRONEDARON E HYDROCHLORI DE), 400 MG, TABLET, ORAL, SANOFI-AVEN TIS, 60 ea. BOTTLE Active [id number] 4 2023 60 Pharmac y Data Transac tion Service Facilit y POTASSIUM CITRATE (POTASSIUM CITRATE), 10MEQ, TABLET SA, ORAL, UPSHER PICKERING, 100 ea. BOTTLE Active [id number] 4 2023 200 Pharmac y Data Transac tion Service Facilit y POTASSIUM CITRATE (POTASSIUM CITRATE), 10MEQ, TABLET SA, ORAL, UPSHER PICKERING, 100 ea. BOTTLE Active [id number] 2023 200 Pharmac y Data Transac tion Service Facilit y Immunizations Combined list of available immunizations from the Department of Defense and Veterans Affairs facilities. Immunization Series Date Given Administered By Site Reaction Lot Number CVX Code Drug Truck Technician Status Comments Source Tdap 2019 BOGDASARIAN, () Not Given Tdap [facility] Influenza, injectable, MDCK, quadrivalent, preservative 2018 ANNABEL,D () Not Given Influenza , injectabl e, MDCK, quadrival ent, preservat mele [facility] zoster recombinant 2018 ANNABEL,D () Not Given [...]
--- OUTSIDE RECORDS SUMMARY | 2024-03-26 14:10 | XMS_ITS ---
Author Organization Moris Yu MD Address [address] [place], [place] [id number] Care Team Providers Care Automatic Lehr Operator Name Role Phone Moris Yu Primary Care Provider Results Component Value Reference Range Notes Complete Blood Count Auto Di ff Reviewed date:03/01/2024 11:46:39 AM Interpretation: Performing Lab:[facility], [address] [place] [phone] Notes/Report: White Blood Count 5.6 4.8-10.8 X10*3/uL [...] NRBC Abs Auto 0.000 0.0-0.012 X10*3/uL Comprehensive [place]. Panel Fa st Reviewed date:03/01/2024 12:19:08 PM Interpretation: Performing Lab:[facility], [address] [place] [phone] Notes/Report: Sodium 141 135-145 mmol/L Potassium 4.4 [...] Panel Reviewed date:03/01/2024 12:18:48 PM Interpretation: Performing Lab:[facility], [address] [place] [phone] Notes/Report: Triglycerides 76 <150 mg/dL Desirable Triglyceride: [...] (Free>4and<10) Reviewed date:03/01/2024 12:19:16 PM Interpretation: Performing Lab:[address] [phone] Notes/Report: PSA,Total (Free>4and<10) 0.20 0.00-4.00 ng/mL A [...] Martínez Alinity i Chemiluminescent Microparticle Immunoassay (CMIA) UA ClnCatch+Micro w/rflx Cul t Reviewed date:03/08/2024 11:48:58 AM Interpretation:BETSY 03/08/24 Performing Lab:[facility], [address] [place] [phone] Notes/Report: Urine, Clean Catch Color Urine Yellow Appearance Urine Hazy PH 6.0 5.0-9.0 Glucose Urine UA Negative Negative mg/dL Urine Blood Large (3+) Negative Specific [place] - Urine 1.020 1.005-1.025 Urine Protein Trace Neg-Trace mg/dL Urine Ketones Negative Negative mg/dL Nitrite Urine Positive Negative Leukocyte Esterase Urine Moderate (2+) Negative RBC Urine >20 0-2 /HPF WBC Urine 0-5 0-5 /HPF Squamous Epithelial Cell Urine 0-2 0-2 /HPF Bacteria Urine 1+ None Seen Hyaline Casts Urine 0-2 0-2 /LPF REASON FOR VISIT Annual labs Encounters Encounter Location Date Provider Diagnosis Moris Yu MD [address] [place] [id number] 03/01/2024 Moris Yu Pure hypercholestero lemia E78.00 ; Thrombocytopenia D69.6 and Chronic congestive heart failure, unspecified heart failure type I50.9 Assessments Encounter Date Diagnosis (ICD Code) Assessment Notes Treatment Notes Treatment Clinical Notes Section Notes 03/01/2024 Pure hypercholesterolemia (ICD-10 - E78.00) 03/01/2024 Thrombocytopenia (IC D-10 - D69.6) 03/01/2024 Chronic congestive h eart failure, unspecified heart failure type (ICD-10 - I50.9) Plan Of Treatment Next Appt Details Provider Name:Moris Wiggins ier, 09/06/2024 08:00:00 AM, [address] [place] [address], [address], [phone], Provider Name:Moris Wiggins ier, 09/13/2024 02:00:00 PM, [address] [place] [address], [address], [phone], Provider Name:Moris Wiggins ier, 03/06/2025 08:00:00 AM, [address] [place] [address], [phone], Provider Name:Moris Wiggins ier, 03/13/2025 02:30:00 PM, [address] [place] [address], [phone], Progress Notes * Erasmo QUEVEDO BDOB: (78 yo M)Acc No.[id number]:03/01/2024 Progress Note Patient:?Erasmo QUEVEDO Provider:?Moris Yu MD :1945???Age:78 Y???Sex:Male Rakesh e:03/01/2024 Address:[address], [address] [facility] [phone] Subjective: * Chief Complaints: * ???1. Annual labs. * Medical History:? Objective: * Vitals:? Assessment: * Assessment: 1.?Pure hypercholesterolemia - E78.00 (Primary)???2.?Thrombocytopenia - D69.6???3.?Chronic congestive heart failure, unspecified heart failure type - I50.9??? Plan: * Treatment: 2.?Thrombocytopenia?LAB: Complete Blood Count Auto Diff (Collection Date & Time - 03/01/2024 08:15 AM) ?LAB: Comprehensive [place]. Panel Fast (Collection Date & Time - 03/01/2024 08:15 AM) ?LAB: Lipid Panel (Collection Date & Time - 03/01/2024 08:15 AM) ?LAB: PSA,Total (Free>4and<10) (Collection Date & Time - 03/01/2024 08:15 AM) ?LAB: UA ClnCatch+Micro w/rflx Cult (Collection Date & Time - 03/01/2024 08:15 AM) 3.?Chronic congestive heart failure, unspecified heart failure type?LAB: Complete Blood Count Auto Diff (Collection Date & Time - 03/01/2024 08:15 AM) ?LAB: Comprehensive [place]. Panel Fast (Collection Date & Time - 03/01/2024 08:15 AM) ?LAB: Lipid Panel (Collection Date & Time - 03/01/2024 08:15 AM) ?LAB: PSA,Total (Free>4and<10) (Collection Date & Time - 03/01/2024 08:15 AM) ?LAB: UA ClnCatch+Micro w/rflx Cult (Collection Date & Time - 03/01/2024 08:15 AM) * Procedure Codes:?65848 VENIP UNCT, ROUTINE* * * The named appointment provid er may or may not be the originator of this progress note, and it is not deemed complete until electronically signed by the appointment provider. Sign off status: Pending * Provider:?Moris Yu MD Date:?0 03/01/2024 Generated for Marie vázquez/Jacob/Tuckeritting on:?03/26/2024 02:10 PM EST
--- OUTSIDE RECORDS SUMMARY | 2024-03-26 14:10 | XMS_ITS | Clinical Summary ---
Author Organization [facility] Address [address] [place] [address] Phone Care Team Providers Care Cutting Inspector Name Role Phone Moris Yu MD Primary Care Provider Allergies Active Allergy Reactions Criticality Noted Date Comments Doxycycline Medium 06/09/2016 UNSURE OF RXN Gadolinium Hives Medium 01/16/2015 Iodinated Contrast Media Hives Medium 08/15/2019 CONTRAST DYE Gadobenate 10/01/2020 Penicillins Rash Low 06/09/2016 Medications allopurinol (ZYLOPRIM) 100 MG tablet Take 100 mg by mouth 1 (one) time each day 01/15/2015 Active aspirin (ST [place]) 81 MG EC tablet Take 81 mg by mouth 1 (one) time each day 01/15/2015 Active atorvastatin (LIPITOR) 80 MG tablet Take 80 mg by mouth 1 (one) time each day 01/15/2015 Active bisoprolol (ZEBETA) 5 MG tablet Take 5 mg by mouth 1 (one) time each day 08/04/2020 Active omeprazole (PriLOSEC) [address] capsule Take 20 mg by mouth 1 (one) time each day 01/15/2015 Active Nutritional Supplements (THERALITH XR PO) Take 4 mg by mouth 1 (one) time each day Active Naproxen (NAPROSYN PO) Take by mouth Active torsemide (Demadex) 10 MG tablet Take 1 tablet (10 mg total) by mouth 1 (one) time each day 30 tablet 2 10/01/2020 Active Active Problems Problem Noted Date Diagnosed Date Chronic kidney disease, stage 2 (mild) Stage 3a chronic kidney disease 10/01/2020 Renal osteodystrophy 10/01/2020 Congestive heart failure 12/11/2015 Hyperlipidemia 12/11/2015 Asthma 01/09/2015 Coronary arteriosclerosis 01/09/2015 Renal stone 01/09/2015 Sarcoidosis 01/09/2015 Immunizations Name Administration Dates Next Due Pneumococcal Polysaccharide 11/24/2016 Social History Tobacco Use Types Packs/Day Years Used Date Smoking Tobacco: Never Smokeless Tobacco: Never Alcohol Use Standard Drinks/Week Comments Not Currently 0 (1 standard drink = 0.6 oz pur e alcohol) Sex and Gender Information Value Date Recorded Sex Assigned at Not on file Legal Sex Male 10:39 AM EDT Gender Identity Not on file Sexual Orientation Not on file Last Filed Vital Signs Vital Sign Reading Time Taken Comments Blood Pressure 126/60 11/19/2020 1:16 PM EDT Pulse 74 11/19/2020 1:16 PM EDT Temperature - - Respiratory Rate - - Oxygen Saturation 98% 11/19/2020 1:16 PM EDT Inhaled Oxygen Concentration - - Weight 109 kg (241 lb 3.2 oz) 11/19/2020 1:16 PM EDT Height - - Body Mass Index - - Plan of Treatment Health Maintenance Due Date Last Done Comments Pneumococcal Vaccine: 65+ Ye ars (2 of 2 - PCV) 11/24/2017 11/24/2016 Influenza Vaccine (#1) 2023 Hepatitis B Vaccine Aged Out No longe r eligible based on patient's age to complete this topic Insurance MEDICARE [facility] MEDICARE [facility] Care Teams Cutting Inspector Relationship Specialty Start Date End Date Moris Yu MD [address] [place] [address] PCP - General Internal Medicine 08/14/20
--- OUTSIDE RECORDS SUMMARY | 2024-03-26 14:11 | XMS_ITS ---
Author Organization Moris Yu MD Address [address] [place] [id number] Care Team Providers Care Track Template Maker Name Role Phone Moris Yu Primary Care Provider [phone] Allergies Allergen (clinical drug ingredient) Drug/Non Drug Allergy documented on EMR Reaction Allergy Type Onset Date Status penicillin G Penicillin G Potassium rash Drug Allergy Active Doxycycline Calcium hives Drug Allergy Active Gadolinium and/or gadolinium compound (FN) gadalinium (uncoded) hives Allergy Active Gadavist hives Drug Allergy Active azithromycin Zithromax Z-Jhonny severe diarrhea Drug Allergy Active REASON FOR VISIT CBACK URINE, Accompanied by Medications Medication SIG (Take, Route, Frequency, Duration) Notes Start Date End Date Status Alphagan P 0.1 % 1 drop into affected eye Ophthalmic every 8 hrs Not-Taking Albuterol Sulfate 0.63 MG/3ML 3 ml as needed Inhalation Three times a day for 90 days 10/23/2014 Not-Taking Cialis 10 MG 1 tablet Orally for 30 day(s) Not-Taking Ventolin HFA 108 2 puffs as needed Inhalation every 4 hrs Not-Takin g Omeprazole 20 MG TAKE 1 CAPSULE DAILY Orally Once a day for 90 days Not-Taking Dymista 137-50 MCG/ACT 1 puff in each no stril Nasally Twice a day Not-Taking Escitalopram Oxalate 10 MG 1 tablet Orally Once a day for 30 day(s) 07/08/2022 Not-Taking Naproxen 250 MG 1 tablet with food o r milk Orally Twice a day for 30 day(s) Not-Taking Albuterol Sulfate HFA 108 (90 Base) MCG/ACT 1 puff as needed Inhalation every 4 hrs 07/09/2021 Not-Takin g Budesonide (Inhalation) once a day, QOD Not-Taking Bisoprolol Fumarate 5 MG 1 tablet Orally Once a day for 30 day(s) Not-Taking Montelukast Sodium 10 mg TAKE 1 TABLET D AILY IN THE EVENING Active Prevagen 10 MG as directed Orally Not-Taking Eliquis 5 MG 1 tablet Orally Twic e a day Active Doxycycline Hyclate 100 MG 1 capsule Orally Once a day for 10 day(s) Not-Taking Allopurinol 100 MG 1 tablet Orally Once a day for 30 day(s) Active Dulera 100-5 MCG/ACT 2 puffs Inhalation Twice a day Active Losartan Potassium 25 MG 1 tablet Orally Once a day for 30 day(s) Not-Taking Spiriva Respimat 2.5 MCG/ACT 2 puffs Inhalation Once a day Active Atorvastatin Calcium 80 MG take 1 tablet daily Orally Once a day Active Potassium Citrate ER 10 MEQ (1080 MG) 1 tablet with meals Orally Twice a day Active Xelpros 0.005 % 1 null into affected eye in the evening Ophthalmic Once a day Active Multaq 400 MG 1 tablet with meals Orally Twice a day for 30 day(s) Active Finasteride 5 MG 1 tablet Orally Once a day for 30 day(s) Active Social History Tobacco Use: Social History Observation Description Date Details (start date - stop date) Never Smoker NA - NA Tobacco Use/Smoking Question Answer Notes Patient is a nonsmoker Additional Findings: Tobacco Non-User Cu rrent non-smoker, currently using no form of tobacco Alcohol Screen Question Answer Notes Did you have a drink containing alcohol in the p ast year? No Points 0 Interpretation Negative Vital Signs Blood pressure systolic 94 mm Hg 03/08/19 25 Blood pressure diastolic 50 mm Hg 025 Height 70 in 03/08/2024 Weight 222 lbs 03/08/2024 BMI 31.85 kg/m2 03/08/2024 weight is up 8 pounds since 09-25-23 Encounters Encounter Location Date Provider Diagnosis Moris Yu MD [address] [place] [address] [place] [id number] 03/08/2024 Moris Yu Gross hematuria R31. 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 has kidney stones 03/08/2024 Paroxysmal atrial fibrillation (ICD-10 - I48.0) stable, will continue current regiment 03/08/2024 Sarcoidosis (ICD-10 - D86.9) doing well with no problems 03/08/2024 Status post insertio n of drug eluting coronary artery stent (ICD-10 - Z95.5) no chest pain 03/08/2024 Pure hypercholesterolemia (ICD-10 - E78.00) stable, will continue current regiment 03/08/2024 Chronic congestive h eart failure, unspecified heart failure type (ICD-10 - I50.9) stable, will continue to monitor 03/08/2024 Moderate asthma with out complication, unspecified whether persistent (ICD-10 - J45.909) doing well, will continue curet regiment 03/08/2024 Colon cancer screeni ng (ICD-10 - Z12.11) guaiac negative 03/08/2024 Depression screening (ICD-10 - Z13.31) negative screen Plan Of Treatment Medication Medication Name Sig Start Date Stop Date Notes Montelukast Sodium 10 mg TAKE 1 TABLET D AILY IN THE EVENING Eliquis 5 MG 1 tablet Orally Twice a day Dulera 100-5 MCG/ACT 2 puffs Inhalation Twice a day Spiriva Respimat 2.5 MCG/ACT 2 puffs Inhalation Once a day Atorvastatin Calcium 80 MG take 1 tablet daily Orally Once a day Treatment Notes Assessment Notes Gross hematuria having evaluation at urology. has kidney stones Paroxysmal atrial fibrillation stable, w ill continue current regiment Sarcoidosis doing well with no p roblems Status post insertion of az g eluting coronary artery stent no chest pain Pure hypercholesterolemia stable, will c ontinue current regiment Chronic congestive heart singh lure, unspecified heart failure type stable, will continue to monitor Moderate asthma without comp lication, unspecified whether persistent doing well, will continue curet regiment Colon cancer screening guaiac negative Depression screening negative screen Next Appt Details Follow Up: 6 Months, Reason: Provider Name:Moris Wiggins ier, 09/06/2024 08:00:00 AM, [address], [address], [place], [place], [id number], Provider Name:Moris San Bradyeunice ier, 09/13/2024 02:00:00 PM, [address], [address], [place], [place], [id number], Provider Name:Moris eastmanr, 03/06/2025 08:00:00 AM, [address], [address], [place], [phone], Provider Name:Moris Mena Feliciano eastmanr, 03/13/2025 02:30:00 PM, [address], [address], [place], [phone], Progress Notes * Erasmo QUEVEDO BDOB: (78 yo M)Acc No.[id number]:03/08/2024 Patient:?Erasmo Quevedo B Provider:?Moris Yu MD :1945???Age:78 Y???Sex:Male Rakesh e:03/08/2024 Address:[address]-[phone] Subjective: * Chief Complaints: * ???CBACK URINEAccompanied by * HPI: ???Depression Screening:?PHQ-9?Little interest or pleasure in doing things?Not at all,?Feeling down, depressed, or hopeless?Not at all,?Trouble falling or staying asleep, or sleeping too much?Not at all,?Feeling tired or having little energy?Not at all,?Poor appetite or overeating?Not at all,?Feeling bad about yourself or that you are a failure, or have let yourself or your family down?Not at all,?Trouble concentrating on things, such as reading the newspaper or watching television?Not at all,?Moving or speaking so slowly that other people could have noticed; or the opposite, being so fidgety or restless that you have been moving around a lot more than usual?Not at all,?Thoughts that you would be better off or of hurting yourself in some way?Not at all,?Total Score?0.?Interpretation and Intervention?Depression Screening Findings?Negative,?Follow-Up for Depression?: review of PHQ-9 found negative result, no follow-up needed.?Fall Risk:?History?Have you had any falls with injury in the past year??No,?Have you had two or more falls in the past year??No.?SDOH Questions:?SDOH Questions?In the past year have you been worried about losing housing??No,?In the past year have you or any family members you live with been unable to get any of the following when it was really needed? Check all that apply:?None.?Communication Needs:?Communication Needs?Does the patient have a hearing impairment?No,?Does the patient have a vision impairment??Yes,?If yes, what is the vision impairment??Glasses,?Does the patient have a cognition impairment??No.?Symptom(s):? patient is a 78 yo male here for review of recent labs and follow up of chronic issues. * ROS:?General/Constitutional:?Patient denies?fatigue , headache.?Change in appetite?denies.?Chills?denies.?Fever?denies.?Ophthalmologic:?Blurred vision?denies.?Discharge?denies.?Pain?denies.?ENT:?Patient denies?decreased sense of smell , any loss of taste , sore throat.?Decreased hearing?denies.?Sore throat?denies.?Swollen glands?denies.?Endocrine:?Cold intolerance?denies.?Excessive thirst?denies.?Heat intolerance?denies.?Weight loss?denies.?Respiratory:?Cough?denies.?Shortness of breath at rest?denies.?Shortness of breath with exertion?denies.?Wheezing?denies.?Cardiovascular:?Chest pain at rest?denies.?Chest pain with exertion?denies.?Irregular heartbeat?denies.?Shortness of breath?denies.?Gastrointestinal:?Abdominal pain?denies.?Change in bowel habits?denies.?Diarrhea?denies.?Nausea?denies.?Rectal bleeding?denies.?Vomiting?denies .?Genitourinary:?Blood in urine?denies.?Difficulty urinating?denies.?Frequent urination?denies.?Musculoskeletal:?Patient denies?muscle aches.?Painful joints?denies.?Weakness?denies.?Peripheral Vascular:?Patient denies?red and blue toes.?Skin:?Dry skin?denies.?Itching?denies.?Denies?Mole(s),? changes in moles, new moles or any lesions of concern.?Denies?Photosensitivity.?Rash?denies.?Neurologic:?Dizziness?denies.?Fainting?denies.?Headache?denies.? * Medical History:? * Surgical History:? * Hospitalization/Major Diagno stic Procedure:? * Family History:?Father: dece ased 91 yrs, family history unknown .?Mother: 91 yrs.?3 sister(s) - healthy. 1 son(s) , 2 daughter(s) - healthy. .? Father- old age Mother- old age, Denies mental health/substance abuse family history, No pertinent family medical history, Denies mental health/substance abuse family history, No pertinent family medical history, Denies mental health/substance abuse family history. * Social History:?Tobacco Use:?Tobacco Use/Smoking?Patient is a?nonsmoker,?Additional Findings: Tobacco Non-User?Current non-smoker, currently using no form of tobacco.?Drugs/Alcohol:?Alcohol Screen?Did you have a drink containing alcohol in the past year??No,?Points?0,?Interpretation?Negative.?Miscellaneous:?Caffeine: yes, Dr Pilar mccarthy. Children: yes. Community involvements: yes. no Exercise. Housing: owning. Living with: spouse. Marital status: . Occupation: works part-time. Pets: none. no Travel outside of the [place]. * Medications:?TakingMultaq 40 0 MG Tablet 1 tablet with meals Orally Twice a dayFinasteride 5 MG Tablet 1 tablet Orally Once a dayPotassium Citrate ER 10 MEQ (1080 MG) Tablet Extended Release 1 tablet with meals Orally Twice a dayXelpros 0.005 % Emulsion 1 null into affected eye in the evening Ophthalmic Once a dayAllopurinol 100 MG Tablet 1 tablet Orally Once a dayAtorvastatin Calcium 80 MG Tablet take 1 tablet daily Orally Once a dayDulera 100-5 MCG/ACT Aerosol 2 puffs Inhalation Twice a daySpiriva Respimat 2.5 MCG/ACT Aerosol Solution 2 puffs Inhalation Once a dayMontelukast Sodium 10 mg Tablet TAKE 1 TABLET DAILY IN THE EVENING Eliquis 5 MG Tablet 1 tablet Orally Twice a dayTaking Multaq 400 MG Tablet 1 tablet with meals Orally Twice a dayTaking Finasteride 5 MG Tablet 1 tablet Orally Once a dayTaking Potassium Citrate ER 10 MEQ (1080 MG) Tablet Extended Release 1 tablet with meals Orally Twice a dayTaking Xelpros 0.005 % Emulsion 1 null into affected eye in the evening Ophthalmic Once a dayTaking Allopurinol 100 MG Tablet 1 tablet Orally Once a dayTaking Atorvastatin Calcium 80 MG Tablet take 1 tablet daily Orally Once a dayTaking Dulera 100-5 MCG/ACT Aerosol 2 puffs Inhalation Twice a dayTaking Spiriva Respimat 2.5 MCG/ACT Aerosol Solution 2 puffs Inhalation Once a dayTaking Montelukast Sodium 10 mg Tablet TAKE 1 TABLET DAILY IN THE EVENING Taking Eliquis 5 MG Tablet 1 tablet Orally Twice a dayNot-Taking/PRNLosartan Potassium 25 MG Tablet 1 tablet Orally Once a dayBisoprolol Fumarate 5 MG Tablet 1 tablet Orally Once a dayPrevagen 10 MG Capsule as directed Orally Doxycycline Hyclate 100 MG Capsule 1 capsule Orally Once a dayDymista 137-50 MCG/ACT Suspension 1 puff in each nostril Nasally Twice a dayEscitalopram Oxalate 10 MG Tablet 1 tablet Orally Once a dayNaproxen 250 MG Tablet 1 tablet with food or milk Orally Twice a dayAlbuterol Sulfate HFA 108 (90 Base) MCG/ACT Aerosol Solution 1 puff as needed Inhalation every 4 hrsBudesonide (Inhalation) once a day, QODOmeprazole 20 MG Capsule Delayed Release TAKE 1 CAPSULE DAILY Orally Once a dayAlphagan P 0.1 % Solution 1 drop into affected eye Ophthalmic every 8 hrsAlbuterol Sulfate 0.63 MG/3ML Nebulization Solution 3 ml as needed Inhalation Three times a dayCialis 10 MG Tablet 1 tablet Orally Ventolin HFA 108 Aerosol Solution 2 puffs as needed Inhalation every 4 hrsMedication List reviewed and reconciled with the patientNot-Taking/PRN Losartan Potassium 25 MG Tablet 1 tablet Orally Once a dayNot-Taking/PRN Bisoprolol Fumarate 5 MG Tablet 1 tablet Orally Once a dayNot-Taking/PRN Prevagen 10 MG Capsule as directed Orally Not-Taking/PRN Doxycycline Hyclate 100 MG Capsule 1 capsule Orally Once a dayNot-Taking/PRN Dymista 137-50 MCG/ACT Suspension 1 puff in each nostril Nasally Twice a dayNot- Taking/PRN Escitalopram Oxalate 10 MG Tablet 1 tablet Orally Once a dayNot-Taking/PRN Naproxen 250 MG Tablet 1 tablet with food or milk Orally Twice a dayNot-Taking/PRN Albuterol Sulfate HFA 108 (90 Base) MCG/ACT Aerosol Solution 1 puff as needed Inhalation every 4 hrsNot-Taking/PRN Budesonide (Inhalation) once a day, QODNot-Taking/PRN Omeprazole 20 MG Capsule Delayed Release TAKE 1 CAPSULE DAILY Orally Once a dayNot- Taking/PRN Alphagan P 0.1 % Solution 1 drop into affected eye Ophthalmic every 8 hrsNot-Taking/PRN Albuterol Sulfate 0.63 MG/3ML Nebulization Solution 3 ml as needed Inhalation Three times a dayNot-Taking/PRN Cialis 10 MG Tablet 1 tablet Orally Not-Taking/PRN Ventolin HFA 108 Aerosol Solution 2 puffs as needed Inhalation every 4 hrsMedication List reviewed and reconciled with the patient * Allergies:?Penicillin G Pota ssium: rashDoxycycline Calcium: hivesgadalinium: hivesGadavist: hivesZithromax Z-Jhonny: severe diarrheayes[Allergies Verified] Objective: * Vitals:?Ht: 70, Wt:222, BMI: 31.85, BP:94/50, Repeat BP:105/60 weight is up 8 pounds since 09-25-23. * ???Past Orders: ???Lab:Complete Blood Count Auto Diff (Order Date - 03/01/2024) (Collection Date - 03/01/2024) ? Value Reference Range ?White Blood Count 5.6 4. 8-10.8 - X10*3/uL ?Red Blood Count 4.07 L 4.60 -5.80 - X10*6/uL ?Hemoglobin 13.1 L 14.0-18.0 - g/dl ?Hematocrit 40.2 L 42.0-52.0 - % ?Mean Corpuscular Volume 98.8 H 80.0-98.0 - fL ?Mean Corpuscular Hemoglobin 32.2 27.0-33.0 - pg ?Mean Corpuscular HGB Conc 32.6 31.0-36.0 - g/dl ?Red Cell Distributio n Width 13.6 11.0-16.0 - % ?Platelet Count 168 160-4 00 - X10*3/uL ?Mean Platelet Volume 11.2 9.4-12.4 - fL ?Neutrophils Percent Auto 59.8 45-73 - % ?Imm Gran Pct Auto 0.7 H 0. 0-0.4 - % ?Lymphocytes Percent Auto 22.9 20-40 - % ?Monocytes Percent Auto 11.3 H 2-11 - % ?Eosinophils Percent Auto 4.8 H 0-4 - % ?Basophils Percent Auto 0.5 0-2 - % ?NRBC Pct Auto 0.0 0.0-0. 2 - /100WBC ?Neutrophils Absolute Auto 3.3 2.0-8.3 - x10*3/uL ?Imm Gran Abs Auto 0.04 H 0. 00-0.03 - X10*3/uL ?Lymphocytes Absolute Auto 1.3 1.2-4.9 - X10*3/uL ?Monocytes Absolute Auto 0.6 0.1-1.2 - X10*3/uL ?Eosinophils Absolute Auto 0.3 0.0-0.4 - X10*3/uL ?Basophils Absolute Auto 0.0 0.0-0.2 - X10*3/uL ?NRBC Abs Auto 0.000 0.0-0. 012 - X10*3/uL ???Lab:Comprehensive [place]. P ir[facility] Fast (Order Date - 03/01/2024) (Collection Date - 03/01/2024) ? Value Reference Range ?Sodium 141 135-145 - mmo l/L ?Bilirubin Total 0.8 0.0- 1.0 - mg/dL ?Aspartate Amino Transferase 31 5-37 - U/L ?Alanine Aminotransferase 8 0-40 - U/L ?Total Protein 7.1 6.5-8. 0 - g/dL ?Albumin Level 3.5 3.5-5. 0 - g/dL ?Alkaline Phosphatase 74 39-117 - U/L ?Potassium 4.4 3.3-5.1 - mmol/L ?Chloride 109 H 96-108 - mm ol/L ?Carbon Dioxide 24 22-29 - mmol/L ?Anion Gap 12 12-20 - ?Blood Urea Nitrogen 16 9-16 - mg/dL ?Creatinine 1.81 H 0.5-1.4 - mg/dL ?Estimated Glomerular Filt Rate 36 - ?Glucose Fasting 105 H 60-9 9 - mg/dL ?Calcium 9.3 8.4-10.2 - m g/dL ???Lab:Lipid Panel (Order Da te - 03/01/2024) (Collection Date - 03/01/2024) ? Value Reference Range ?Triglycerides 76 <150 - mg/dL ?Cholesterol 119 <200 - m g/dL ?LDL Cholesterol Calculated 60 <100 - mg/dL ?HDL Cholesterol 44 >40 - mg/dL ???Lab:PSA,Total (Free>4and< 10) (Order Date - 03/01/2024) (Collection Date - 03/01/2024) ? Value Reference Range ?PSA,Total (Free>4and<10) 0.20 0.00-4.00 - ng/mL ???Lab:Urine Culture (Order Date - 03/01/2024) (Collection Date - 03/01/2024) ? Value Reference Range ?Urine Culture No growth. - ???Lab:UA ClnCatch+Micro w/r flx Cult (Order Date - 03/01/2024) (Collection Date - 03/01/2024) ?Result: CBACK 5 ? Value Reference Range ?Color Urine Yellow - ?Appearance Urine Hazy - ?PH 6.0 5.0-9.0 - ?Glucose Urine UA Negative Neg ative - mg/dL ?Urine Blood Large (3+) A Negative - ?Specific [place] - Urine 1.020 1.005-1.025 - ?Urine Protein Trace Neg-Tr jose miguel - mg/dL ?Urine Ketones Negative Negati ve - mg/dL ?Nitrite Urine Positive A Negati ve - ?Leukocyte Esterase Urine Moderate (2+) A Negative - ?RBC Urine >20 A 0-2 - /HPF ?WBC Urine 0-5 0-5 - /HPF ?Squamous Epithelial Cell Urine 0-2 0-2 - /HPF ?Bacteria Urine 1+ None Seen - ?Hyaline Casts Urine 0-2 0-2 - /LPF * Examination: ???General Examination: ?GENERAL APPEARANCE:?well developed, well nourished, in no acute distress.?HEAD:?normocephalic, atraumatic.?EYES:?pupils equal, round, reactive to light and accommodation, sclera non-icteric.?EARS:?normal.?ORAL CAVITY:?mucosa moist.?THROAT:?clear.?NECK/THYROID:?neck supple, full range of motion, no cervical lymphadenopathy, no bruits.?SKIN:?warm and dry, no suspicious lesions.?HEART:?regular rate and rhythm, S1, S2 normal, no murmurs.?LUNGS:?clear to auscultation bilaterally.?ABDOMEN:?soft, nontender, nondistended, bowel sounds present, normal, no organomegaly , no masses palpable.?RECTAL EXAM:?normal tone, no external hemorrhoids, no masses palpable, prostate normal, stool guaiac negative.?MALE GENITOURINARY:?not examined.?EXTREMITIES:?no clubbing, cyanosis, or edema.?NEUROLOGIC:?nonfocal, motor strength normal upper and lower extremities, sensory exam intact.? 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 Plan: * Treatment: 2.?Paroxysmal atrial fibrill ation? Continue Eliquis Tablet, 5 MG, 1 tablet, Orally, Twice a day.?? Notes: stable, will continue current regiment?? 3.?Sarcoidosis? Notes: doing well with no problems?? 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 Notes: no chest pain?? 5.?Pure hypercholesterolemia ? Continue Atorvastatin Calcium Tablet, 80 MG, take 1 tablet daily, Orally, Once a day.?? Notes: stable, will continue current regiment?? 6.?Chronic congestive heart failure, unspecified heart failure type? Notes: stable, will continue to monitor?? 7.?Moderate asthma without c omplication, unspecified whether persistent? Continue Dulera Aerosol, 100-5 MCG/ACT, 2 puffs, Inhalation, Twice a day;?Continue Spiriva Respimat Aerosol Solution, 2.5 MCG/ACT, 2 puffs, Inhalation, Once a day;?Continue Montelukast Sodium Tablet, 10 mg, TAKE 1 TABLET DAILY IN THE EVENING.?? Notes: doing well, will continue curet regiment?? 8.?Colon cancer screening? Notes: guaiac negative?? 9.?Depression screening? Notes: negative screen?? * Procedure Codes:? * Follow Up:?6 Months * * Sign off status: Completed true * Provider:?Moris Yu MD Date:?0 03/08/2024 Generated for Marie vázquez/Jacob/Komal on:?03/26/2024 02:10 PM EST History and Physical Notes * HPI (History of Present Illness) Category Sub-Category Detail Notes Category Not es Symptom(s) patient is a 78 yo male here for review of recent labs and follow up of chronic issues. Depression Screening PHQ-9 Little inte rest or pleasure in doing things: Not at all Feeling down, depressed, or hopeless: No t at all Trouble falling or staying asleep, or sl eeping too much: Not at all Feeling tired or having little energy: N ot at all Poor appetite or overeating: Not at all Feeling bad about yourself o r that you are a failure, or have let yourself or your family down: Not at all Trouble concentrating on thi ngs, such as reading the newspaper or watching television: Not at all Moving or speaking so slowly that other people could have noticed; or the opposite, being so fidgety or restless that you have been moving around a lot more than usual: Not at all Thoughts that you would be b leatha off or of hurting yourself in some way: Not at all Total Score: 0 Interpretation and Intervention Depression Porsche moe Findings: Negative Follow-Up for Depression: : review of PH Q-9 found negative result, no follow-up needed SDOH Questions SDOH Questions In the past year have you been worried about losing housing?: No In the past year have you or any family members you live with been unable to get any of the following when it was really needed? Check all that apply:: None Fall Risk History Have you had any falls with injury i n the past year?: No Have you had two or more falls in the st year?: No Communication Needs Communication Needs Does the patient have a hearing impairment: No Does the patient have a vision impairmen t?: Yes ?If yes, what is the vision impairment?: Glasses Does the patient have a cognition impair ment?: No Examination Category Sub-Category Detail Notes Category Not es General Examination GENERAL APPEARANCE: well dev eloped, well nourished, in no acute distress HEAD: normocephalic, atrau matic EYES: pupils equal, round, reactive to light and accommodation, sclera non- icteric EARS: normal THROAT: clear NECK/THYROID: neck supple, full ra nge of motion, no cervical lymphadenopathy, no bruits HEART: regular rate and rhy thm, S1, S2 normal, no murmurs LUNGS: clear to auscultatio n bilaterally ABDOMEN: soft, nontender, non distended, bowel sounds present, normal, no organomegaly , no masses palpable NEUROLOGIC: nonfocal, motor stre ngth normal upper and lower extremities, sensory exam intact SKIN: warm and dry, no natasha picious lesions EXTREMITIES: no clubbing, cyanosi s, or edema MALE GENITOURINARY: not examined RECTAL EXAM: normal tone, no exte rnal hemorrhoids, no masses palpable, prostate normal, stool guaiac negative ORAL CAVITY: mucosa moist
--- OUTSIDE RECORDS SUMMARY | 2024-03-26 14:11 | XMS_ITS | Data Portability ---
Author Organization [place] [facility] Mena Zaldivar [place] Address [address] [facility] [address] [place] [address] Care Team Providers Care Mail Truck Driver Name Role Phone CHRISTIAN WEBB Primary Care Provider Assessment Encounter Date Assessment Date Assessment LastModified [...] view 023 09/23/19 23 [email or web address] [facility], [address], [address], [place], [address], 16:12:07 Medication Orders None record ed. Patient TargetsNo targets recorded. Patient Instructions Encounter Date Encounter Id Patient Instructions Last Modified By Organization Details Last Modified Time 09/22/2022 [id number] three-view x-ray of the right hip reveals well-seated well-positioned total hip arthroplasty without sign of loosening. Not available 09/22/2022 13:42:30 Reason for Referral None Reported. Procedures Surgical History Date Name Laterality Status Provider Name and Address Organization Details Recorded Time total replacement of hip completed Marylou Bradshaw [place] - [facility], 09/22/2022 15:39:52 Imaging Results None recorded. Procedure [...] Updated DateTime 09/22/2022 154.94 cm 43.5 kg/m2 276498.25 g [facility] 09/22/2022 14:14:14 Social History Question Answer Notes LastModified by Organizat ion Details LastModified Time Tobacco Smoking Status Never Smoker Marylou Bradshaw [facility], [place] - [facility] 09/22/2022 15:42:02 What Is Your Level [...] History Nothing Reported. Medical History Condition Response Heart Disease Y Hypertension Y Asthma Y Kidney Disease Y Past Encounters Encounter ID Performer Location Encounter Start Date Encounter Closed Date Diagnosis/Indication Diagnosis SNOMED-CT Code Diagnosis ICD10 Code Diagnosis Note [id number] MD DUSTY Whitneynina [address] [address] 09/22/2022 13:17:45 09/22/2022 13:52:32 History of total replacement of right hip joint [id number] Z96.641 Health Concerns Section Related Observation LastModified by Organization Jerald angeles LastModified Time None Recorded Concern Status LastModified by Organization Details LastModified Time None Recorded Advance Directives Directive None Recorded Payers Encounter Date Sequence Insurance Name Policy Number Policy Grijalva Covered Member ID Grijalva Member ID Guarantor Name 09/22/2022 1 MEDICARE B-[place]: [employer] Erasmo Quevedo [id number] Erasmo Quevedo 09/22/2022 2 WPS - FOR LIFE (MEDICARE SUPPLEMENT) Erasmo Quevedo [id number] Erasmo Gamal Quevedo Notes Date Note Type Note Provider Name and Address Organization Details Recorded Time 09/22/2022 text/html R hip. R-DEE 09/18/19. xrays today. 77-year-old male history of right total hip arthroplasty 09/18/[address] Sanchez. Here for annual follow-up. States intermittent discomfort however doing well. He does do stretching exercises. He also takes his antibiotic prophylaxis prior to dental work. COREEN SIMS PA-C [address] [place] [address], [place], [address], [place] - [facility], 09/22/2022 13:52:09
--- OUTSIDE RECORDS SUMMARY | 2024-03-26 14:11 | XMS_ITS | Clinical Summary ---
Author Organization [facility] it Address [address] [place] [address] Care Team Providers Care Wallpaper Remover Steam Name Role Phone Moris Yu MD Primary Care Provider Unav ailable Surgical History Surgery Date Site/Laterality Comments HERNIA REPAIR PROCEDURE: HISTORICAL HERNIA REPAIR/ING CARDIAC CATHETERIZATION 08/28/2014 PROCEDURE: HISTORICAL CARDIAC CATH OTHER SURGICAL HISTORY PROCEDURE: HISTORY OTHER; COMMENT: lung surgery OTHER SURGICAL HISTORY PROCEDURE:cardiac stents HERNIA REPAIR PROCEDURE:HERNIA REPAIR CARDIAC CATHETERIZATION 2013 PROCEDURE:CARDIAC CATHETERIZATION;COMMENT:STENTS X 2 BARE METAL LASER ABLATION Bilateral PROCEDURE:LASER ABLATION;COMMENT:KIDNEY STONES OTHER SURGICAL HISTORY Right PROCEDURE:REPLANTATION FINGER;COMMENT:3RD AND 4TH TOTAL HIP ARTHROPLASTY 08/29/2019 Right PROCEDURE:TOTAL HIP ARTHROPLASTY;COMMENT:Procedure: REPLACEMENT TOTAL HIP; Surgeon: Ron Sanchez MD; [facility] Service: Orthopedics; Laterality: Right; JOINT REPLACEMENT PROCEDURE:JOINT REPLACEMENT Medical History Medical History Date Comments Asthma 11/08/2016 DX:Asthma Interstitial lung disease (CMS/HCC) 11/08/2016 DX:Interstitial lung disease (HCC) Pulmonary sarcoidosis ([facility]/HCC) 11/24/2016 DX:Pulmonary sarcoidosis ([facility]) Seasonal allergic rhinitis 11/24/2016 DX:Se asonal allergic rhinitis Nephrolithiasis 03/17/2017 DX:Nephrolithias is; COMMENT: 06/29/2015 Hyperlipidemia 04/20/2017 DX:Hyperlipidemi a Asthma DX:Asthma Hypertension DX:Hypertension Kidney damage DX:Kidney damage Osteoarthritis DX:Osteoarthriti s Sarcoidosis, lung (CMS/HCC) DX:S arcoidosis, lung (HCC) PVC (premature ventricular contraction) DX:PVC (premature ventricular contraction) ARCHER (dyspnea on exertion) DX:ARCHER (dyspnea on exertion) Pneumonia DX:Pneumonia Bronchitis, chronic (CMS/HCC) DX :Bronchitis, chronic (HCC) Hyperlipidemia DX:Hyperlipidemi a Heartburn DX:Heartburn Chronic diarrhea DX:Chronic diar last Kidney stone DX:Kidney stone Nocturia DX:Nocturia Anxiety DX:Anxiety Family History Medical History Relation Name Comments Dementia Father Heart disease Father AFIB Dementia Mother No Known Problems Sister 1 Heart disease Sister 2 PAT Relation Name Status Comments Father (Age 93) Mother (Age 93) Sister 1 Alive X 2 Sister 2 Alive Social History Tobacco Use Types Packs/Day Years Used Date Smoking Tobacco: Never Smokeless Tobacco: Never Alcohol Use Standard Drinks/Week Comments No 0 (1 standard drink = 0.6 oz pur e alcohol) Sex and Gender Information Value Date Recorded Sex Assigned at Not on file Gender Identity Not on file Sexual Orientation Not on file Obstetrics History Plan of Treatment Health Maintenance Due Date Last Done Comments DTaP,Tdap,and Td Vaccines (1 - Tdap) 1964 Zoster Vaccines (1 of 2) 05/04/1995 Pneumococcal Vaccine: 65+ Ye ars (2 of 2 - PCV) 11/24/2017 11/24/2016 RSV Immunization Patients 60 + Years Old (1 - 1-dose 75+ series) 2020 Cholesterol Screening (Lipid Panel) 02/04/2022 Depression Screening 02/04/2022 Falls Risk Assessment 02/04/2022 Hepatitis C Screening 02/04/2022 Social Influencers of Health Screening 02/04/2022 COVID-19 Vaccine ( - 2023-2 5 season) 2023 Influenza Vaccine (#1) 2023 HIB Vaccines Aged Out No longer eligi ble based on patient's age to complete this topic HPV Vaccines Aged Out No longer eligi ble based on patient's age to complete this topic Hepatitis A Vaccines Aged Out No long er eligible based on patient's age to complete this topic Hepatitis B Vaccines Aged Out No long er eligible based on patient's age to complete this topic IPV Vaccines Aged Out No longer eligi ble based on patient's age to complete this topic MMR Vaccines Aged Out No longer eligi ble based on patient's age to complete this topic Meningococcal ACWY Vaccine Aged Out N o longer eligible based on patient's age to complete this topic RSV Immunization Patients Un janice 20 months Aged Out No longer eligible b ased on patient's age to complete this topic Varicella Vaccines Aged Out No longer eligible based on patient's age to complete this topic Medical Devices Implanted Type Area Inside Sales Manager Device Identifier Shelf Expiration Date Model / Serial / Lot Shell Trident Ii F 58mm 5 Screw Hole Cluster Tritanium - [id number] Implanted:Qty: 1 on 08/29/2019 by Ron Sanchez MD Right: Hip [employer] [id number] 12/24/2023 702-04-58F / / [id number] Screw Trident Ii 30mm 6.5mm Low Profile Hexagonal Bone - [id number] Implanted:Qty: 1 on 08/29/2019 by Ron Sanchez MD Right: Hip [employer] [id number] 01/08/2024 8689-9251 / / 33TH Insert Trident 10d F 36mm X3 Acetabular Hip - [id number] Implanted:Qty: 1 on 08/29/2019 by Ron Sanchez MD Right: Hip [employer] [id number] 01/14/2024 623-10-36F / / [id number] Screw Trident Ii 30mm 6.5mm Low Profile Hexagonal Bone - [id number] Implanted:Qty: 1 on 08/29/2019 by Ron Sanchez MD Right: Hip [employer] [id number] 12/10/2023 5167-3186 / / [id number] Stem Hip Neck Angle 127 Degree Accolade Ii Sz6 - [id number] Implanted:Qty: 1 on 08/29/2019 by Ron Sanchez MD Right: Hip [employer] [id number] 10/04/2022 5423-9319 / / [id number] Head V40 -5mm 36mm Delta Femoral Hip - [id number] Implanted:Qty: 1 on 08/29/2019 by Ron Sanchez MD Right: Hip [employer] [id number] 07/31/2024 6570-0-036 / / [id number] Care Teams Wallpaper Remover Steam Relationship Specialty Start Date End Date Moris Yu MD [address] [place] [address] PCP - General Internal Medicine 01/24/17
--- OUTSIDE RECORDS SUMMARY | 2024-03-26 14:11 | XMS_ITS | Clinical Summary ---
Author Organization [facility] Address [address] [place] [address] Care Team Providers Care Supervisor Ordnance Truck Installation Name Role Phone Moris Yu MD Primary Care Provider Allergies Active Allergy Reactions Criticality Noted Date Comments Doxycycline Medium 06/09/2016 UNSURE OF RXN Gadobenate 10/01/2020 Iodinated Contrast Media Hives Medium 08/15/2019 CONTRAST DYE Penicillins Rash Low 06/09/2016 Medications Medication Sig Dispensed Refills Start Date End Date Status albuterol (PROVENTIL) (2.5 MG/3ML) 0.083% nebulizer solution Inhale 1 vial into the lungs. 0 Active allopurinol (ZYLOPRIM) 100 MG tablet Take 100 mg by mouth. 0 01/15/2015 Active atorvastatin (LIPITOR) tablet 80 mg 0 06/23/2019 Active Azelastine-Flutica sone 137-50 MCG/ACT SUSP spray or apply 1 spray inside Nose 2 (two) times a day. 0 Active bisoprolol (ZEBETA) 5 MG tablet Take 5 mg by mouth. 0 01/05/2017 Activ e DULERA 200-5 MCG/ACT inhaler 2 inhalations by Inhaled route every 12 (twelve) hours. 0 04/20/2019 Active montelukast (SINGULAIR) 10 MG tablet Take 10 mg by mouth. 0 01/15/2015 Active Nutritional Supplements (THERALITH XR PO) Take 2 tablets by mouth 2 (two) times a day. 0 Active budesonide (PULMICORT) 0.5 MG/2ML nebulizer solution Take 0.5 mg by nebulization daily. 0 Active Tiotropium [place] Monohydrate (SPIRIVA RESPIMAT) 2.5 MCG/ACT AERS Inhale 1 inhalation into the lungs daily. 0 Active brimonidine (ALPHAGAN) 0.2 % ophthalmic solution Place 1 drop into both eyes every night at bedtime. 0 Active diphenoxylate-atro pine (LOMOTIL) 2.5-0.025 MG per tablet Take 1 tablet by mouth 4 (four) times a day as needed for diarrhea. 0 Active UNABLE TO FIND Apply 1 application topically daily as needed. Med Name: FLOUROURACIL-SCALP 0 Active aspirin EC 81 MG EC tablet Take 1 tablet (81 mg total) by mouth 2 (two) times a day after meals. 80 tablet 0 08/30/2019 Active methocarbamol (ROBAXIN) 750 MG tablet Take 1 tablet (750 mg total) by mouth every 6 (six) hours as needed (Muscle Spasms). 45 tablet 0 08/30/2019 Active pantoprazole (PROTONIX) 40 MG tablet Take 1 tablet (40 mg total) by mouth every morning on an empty stomach. 40 tablet 0 08/31/2019 Active senna-docusate (PERICOLACE) 8.6-50 MG Take 1 tablet by mouth 2 (two) times a day. 14 tablet 0 08/30/2019 Active sulfamethoxazole-t rimethoprim (BACTRIM DS) 800-160 MG per tablet Take 1 tablet (160 mg of trimethoprim total) by mouth 2 (two) times a day. 20 tablet 0 09/02/2019 Active tamsulosin (FLOMAX) 0.4 MG CAPS Take 1 capsule (0.4 mg total) by mouth daily. 30 capsule 0 09/02/2019 Active HYDROmorphone (DILAUDID) 2 MG tablet Take 1 tablet (2 mg total) by mouth every 4 (four) hours as needed. May fill for lesser quantity. 40 tablet 0 09/05/2019 Active traZODone (DESYREL) 50 MG tablet 0 08/22/2019 Active omeprazole (PriLOSEC) 20 MG capsule 0 11/10/2019 Active furosemide (LASIX) 20 MG tablet 0 06/24/2020 Active losartan (COZAAR) tablet 25 mg 0 08/16/2021 Active clindamycin (CLEOCIN) 150 MG capsule TAKE 4 CAPSULES (600MG DOSE) BY MOUTH 1 HOUR PRIOR TO DENTAL APPOINTMENT 20 capsule 3 09/16/2021 Active Active Problems No known active problems Family History Medical History Relation Name Comments Heart disease Father AFIB Dementia Mother No Sig Med Hx Sister 1 Heart disease Sister 2 PAT [...] Information Value Date Recorded Sex Assigned at Male 08/15/2019 3:11 PM EDT Gender Identity Male 08/15/2019 3:11 PM EDT Sexual Orientation Straight 08/29/2019 5: 38 AM EDT Job Start Date Occupation Industry Not on file Not on file Not on file Last Filed Vital Signs Vital Sign Reading Time Taken Comments Blood Pressure 115/70 08/30/2019 8:28 AM EDT Pulse 63 08/30/2019 8:28 AM EDT Temperature 36.9 ??C (98.4 ??F) 08/30/2019 8:28 AM ED T Respiratory Rate 15 08/30/2019 8:28 AM EDT Oxygen Saturation 96% 08/30/2019 8:28 AM EDT Inhaled Oxygen Concentration - - Weight 101.6 kg (224 lb) 08/29/2019 5:37 AM EDT Height 176.5 cm (5' 9.5 ) 08/29/2019 5:37 AM EDT Body Mass Index 32.6 08/29/2019 5:37 AM EDT Plan of Treatment Health Maintenance Due Date Last Done Comments Hepatitis C Screening 1945 COVID-19 Vaccine (#1) 1945 Depression Screening 1957 BMI Counseling 05/04/1963 Preventative Health Evaluation 05/04/1963 DTap / Tdap / Td (1 - Tdap) 1964 Shingrix-Zoster Vaccine (1 of 2) 05/04/1995 Fall Risk Assessment 2010 Pneumococcal Vaccine (2 of 2 - PCV) 11/24/2017 11/24/2016 RSV Adult > 60+ Yrs or Pregn ant (1 - 1-dose 75+ series) 2020 Influenza Vaccine (#1) 2023 Hepatitis B Vaccines Aged Out No long er eligible based on patient's age to complete this topic RSV Ped < 20 months Aged Out No longe r eligible based on patient's age to complete this topic Medical Devices Implanted Type Area Drive In Theater Attendant Device Identifier Shelf Expiration Date Model / Serial / Lot Shell Trident Ii F 58mm 5 Screw Hole Cluster Tritanium - [id number] - [id number] Implanted:Qty: 1 on 08/29/2019 by Ron Sanchez MD at [facility] Right: Hip [employer] [id number] 12/24/2023 702-04-58F / / [id number] Screw Trident Ii 30mm 6.5mm Low Profile Hexagonal Bone - [id number] - [id number] Implanted:Qty: 1 on 08/29/2019 by Ron Sanchez MD at [facility] Right: Hip [employer] [id number] 01/08/2024 1663-3763 / / 33TH Insert Trident 10d F 36mm X3 Acetabular Hip - [id number] - [id number] Implanted:Qty: 1 on 08/29/2019 by Ron Sanchez MD at [facility] Right: Hip [employer] [id number] 01/14/2024 623-10-36F / / [id number] Screw Trident Ii 30mm 6.5mm Low Profile Hexagonal Bone - [id number] - [id number] Implanted:Qty: 1 on 08/29/2019 by Ron Sanchez MD at [facility] Right: Hip [employer] [id number] 12/10/2023 1661-6923 / / [id number] Stem Hip Neck Angle 127 Degree Accolade Ii Sz6 - [id number] - [id number] Implanted:Qty: 1 on 08/29/2019 by Ron Sanchez MD at [facility] Right: Hip [employer] [id number] 10/04/2022 9906-0492 / / [id number] Head V40 -5mm 36mm Delta Femoral Hip - [id number] - [id number] Implanted:Qty: 1 on 08/29/2019 by Ron Sanchez MD at [facility] Right: Hip [employer] [id number] 07/31/2024 6570-0-036 / / [id number] Advance Directives For more information, please contact: [phone] Latest Code Status on File Code Status Date Activated Date Inactivated Comments Full Code 08/29/2019 9:29 AM 08/30/2019 9:39 PM This co de status was ascertained in the following way: per living will or healthcare instructions . Code Status History Code Status Date Activated Date Inactivated Comments Full Code 08/29/2019 5:17 AM 08/29/2019 9:29 AM This co de status was ascertained in the following way: discussion with patient . Care Teams Supervisor Ordnance Truck Installation Relationship Specialty Start Date End Date Moris Yu MD [address] [place] [address] PCP - General Internal Medicine 06/26/19
--- OUTSIDE RECORDS SUMMARY | 2024-03-26 14:11 | XMS_ITS ---
Author Organization Moris Yu MD Address [address] [place] [phone] Care Team Providers Care Circulation Worker Name Role Phone Moris Yu Primary Care Provider [phone] Allergies Allergen (clinical drug ingredient) Drug/Non Drug Allergy documented on EMR Reaction Allergy Type Onset Date Status penicillin G Penicillin G Potassium rash Drug Allergy Active Doxycycline Calcium hives Drug Allergy Active Gadolinium and/or gadolinium compound (FN) gadalinium (uncoded) hives Allergy Active Gadavist hives Drug Allergy Active azithromycin Zithromax Z-Jhonny severe diarrhea Drug Allergy Active REASON FOR VISIT PH/TCM, Accompanied by Medications Medication SIG (Take, Route, [...] as needed Inhalation every 4 hrs Not-Ashvin g Multaq 400 MG 1 tablet with [...] Once a day for 30 day(s) Active Vital Signs Blood pressure systolic 102 mm Hg 09/25/19 24 Blood pressure diastolic 78 mm Hg 024 Height 70 in 09/25/2023 Weight 214 lbs 09/25/2023 BMI 30.70 kg/m2 09/25/2023 Encounters Encounter Location Date Provider Diagnosis Moris Yu MD [address] [place] [address] [place] [address] [phone] 09/25/2023 Moris Yu Status post insertio n of drug eluting coronary artery stent Z95.5 ; Paroxysmal atrial fibrillation I48.0 and Chronic congestive heart failure, unspecified heart failure type I50.9 Assessments Encounter Date Diagnosis (ICD Code) Assessment Notes Treatment Notes Treatment Clinical Notes Section Notes 09/25/2023 Status post insertion of drug [...] I50.9) stable with no evidence of recurrence Plan Of Treatment Treatment Notes Assessment Notes Status post insertion [...] of recurrence Next Appt Details Provider Name:Moris Wiggins ier, 09/06/2024 08:00:00 AM, [address] [place] [address], [address] [place] [address], [phone], Provider Name:Moris Wiggins ier, 09/13/2024 02:00:00 PM, [address] [place] [address], [address] [place] [address], [phone], Provider Name:Moris eastmanr, 03/06/2025 08:00:00 AM, [address] [place] [address], Suite [facility], [place], [place], [phone], Provider Name:Moris Wiggins ier, 03/13/2025 02:30:00 PM, [address] [place] [address], [address] [place] [address], [phone], Progress Notes * Erasmo QUEVEDO BDOB: (78 yo M)Acc No.[id number]:09/25/2023 Patient:?Erasmo Quevedo Provider:?Moris Yu MD :1945???Age:78 Y???Sex:Male Rakesh e:09/25/2023 Address:[place] [address] [place] [id number] Subjective: * Chief Complaints: * ???PH/TCMAccompanied by * HPI: ???Symptom(s):? patient is 78 yo male here for transitional care management visit, discharge summary has been reviewed and medications reconcilled. mouth is better. urination is better. has a stone still and is going to have lithotrypsy. is waiting for the appointment. * ROS:?General/Constitutional:?Denies?Chills.?Denies?Fatigue.?Denies?Fever.?Denies?Headache.?ENT:?Patient denies?decreased sense of smell, any loss of taste, sore throat.?Denies?Sore throat.?Respiratory:?Denies?Cough.?Denies?Shortness of breath at rest.?Denies?Shortness of breath with exertion.?Gastrointestinal:?Denies?Diarrhea.?Denies?Nausea.?Genitourinary:?Denies?Abdominal pain/swelling.?Admits?Blood in urine.?Denies?Difficulty urinating.?Denies?Frequent urination.?Musculoskeletal:?Patient denies?muscle aches.?Peripheral Vascular:?Patient denies?red and blue toes.? * Medical History:? * Surgical History:? * Hospitalization/Major Diagno stic Procedure:? * Medications:?TakingMultaq 40 0 MG Tablet 1 tablet with meals Orally Twice a dayFinasteride 5 MG Tablet 1 tablet Orally Once a dayPotassium Citrate ER 10 MEQ (1080 MG) Tablet Extended Release 1 tablet with meals Orally Twice a dayXelpros 0.005 % Emulsion 1 null into affected eye in the evening Ophthalmic Once a dayLosartan Potassium 25 MG Tablet 1 tablet Orally Once a dayAllopurinol 100 MG Tablet 1 tablet Orally Once a dayBisoprolol Fumarate 5 MG Tablet 1 tablet Orally Once a dayPrevagen 10 MG Capsule as directed Orally Atorvastatin Calcium 80 MG Tablet take 1 tablet daily Orally Once a dayDulera 100-5 MCG/ACT Aerosol 2 puffs Inhalation Twice a daySpiriva Respimat 2.5 MCG/ACT Aerosol Solution 2 puffs Inhalation Once a dayMontelukast Sodium 10 mg Tablet TAKE 1 TABLET DAILY IN THE EVENING Taking Multaq 400 MG Tablet 1 tablet with meals Orally Twice a dayTaking Finasteride 5 MG Tablet 1 tablet Orally Once a dayTaking Potassium Citrate ER 10 MEQ (1080 MG) Tablet Extended Release 1 tablet with meals Orally Twice a dayTaking Xelpros 0.005 % Emulsion 1 null into affected eye in the evening Ophthalmic Once a dayTaking Losartan Potassium 25 MG Tablet 1 tablet Orally Once a dayTaking Allopurinol 100 MG Tablet 1 tablet Orally Once a dayTaking Bisoprolol Fumarate 5 MG Tablet 1 tablet Orally Once a dayTaking Prevagen 10 MG Capsule as directed Orally Taking Atorvastatin Calcium 80 MG Tablet take 1 tablet daily Orally Once a dayTaking Dulera 100-5 MCG/ACT Aerosol 2 puffs Inhalation Twice a dayTaking Spiriva Respimat 2.5 MCG/ACT Aerosol Solution 2 puffs Inhalation Once a dayTaking Montelukast Sodium 10 mg Tablet TAKE 1 TABLET DAILY IN THE EVENING Not-Taking/PRNDoxycycline Hyclate 100 MG Capsule 1 capsule Orally Once a dayEliquis 5 MG Tablet 1 tablet Orally Twice a dayDymista 137-50 MCG/ACT Suspension 1 puff [...] 2 puffs as needed Inhalation every 4 hrsNot-Taking/PRN Doxycycline Hyclate 100 MG Capsule 1 capsule Orally Once a dayNot-Taking/PRN Eliquis 5 MG Tablet 1 tablet Orally Twice a dayNot-Taking/PRN Dymista 137-50 MCG/ACT Suspension 1 puff in each nostril Nasally Twice a dayNot-Taking/PRN Escitalopram Oxalate 10 MG Tablet 1 tablet Orally Once a dayNot-Taking/PRN Naproxen 250 MG Tablet 1 tablet with food or milk Orally Twice a dayNot-Taking/PRN Albuterol Sulfate HFA 108 (90 Base) MCG/ACT Aerosol Solution 1 puff as needed Inhalation every 4 hrsNot-Taking/PRN Budesonide (Inhalation) once a day, QODNot-Taking/PRN Omeprazole 20 MG Capsule Delayed Release TAKE 1 CAPSULE DAILY Orally Once a dayNot-Taking/PRN Alphagan P 0.1 % Solution 1 drop into affected eye Ophthalmic every 8 hrsNot-Taking/PRN Albuterol Sulfate 0.63 MG/3ML Nebulization Solution 3 ml as needed Inhalation Three times a dayNot-Taking/PRN Cialis 10 MG Tablet 1 tablet Orally Not-Taking/PRN Ventolin HFA 108 Aerosol Solution 2 puffs as needed Inhalation every 4 hrsDiscontinuedPyridium 100 MG Tablet 1 tablet after meals Orally Three times a dayMedication List reviewed and reconciled with the patientDiscontinued Pyridium 100 MG Tablet 1 tablet after meals Orally Three times a dayMedication List reviewed and reconciled with the patient * Allergies:?Penicillin G Pota ssium: rashDoxycycline Calcium: hivesgadalinium: hivesGadavist: hivesZithromax Z-Jhonny: severe diarrheayes[Allergies Verified] Objective: * Vitals:?Ht: 70, Wt:214, BMI: 30.70, BP:102/78. * Examination: ???General Examination: ?GENERAL APPEARANCE:? alert, well hydrated, in no distress , male.?HEAD:? normocephalic.?SKIN:? good turgor.?HEART:? no murmurs, rubs, gallops, regular rate and rhythm.?LUNGS:? no wheezes, rales, rhonchi, good air movement, clear to auscultation bilaterally.?ABDOMEN:? soft, nontender, nondistended.?EXTREMITIES:? no edema.? Assessment: * Assessment: 1.?Status post insertion of drug eluting coronary artery stent - Z95.5 (Primary)?2.?Paroxysmal atrial fibrillation - I48.0?3.?Chronic congestive heart failure, unspecified heart failure type - I50.9? Plan: * Treatment: 2.?Paroxysmal atrial fibrill ation? Notes: going to get ecg this week.?? 3.?Chronic congestive heart failure, unspecified heart failure type? Notes: stable with no evidence of recurrence.?? * Procedure Codes:? * * Sign off status: Completed true * Provider:?Moris Yu MD Date:?0 09/25/2023 Generated for Marie vázquez/Jacob/eTransmitting on:?03/26/2024 02:10 PM EST History and Physical Notes * HPI (History of Present Illness) Category Sub-Category Detail Notes Category Not es Symptom(s) patient is 78 y o male here for transitional care management visit, discharge summary has been reviewed and medications reconcilled. mouth is better. urination is better. has a stone still and is going to have lithotrypsy. is waiting for the appointment. Examination Category Sub-Category Detail Notes Category Not es General Examination GENERAL APPEARANCE: alert, w ell hydrated, in no distress , male HEAD: normocephalic HEART: no murmurs, rubs, ga llops, regular rate and rhythm LUNGS: no wheezes, rales, r honchi, good air movement, clear to auscultation bilaterally ABDOMEN: soft, nontender, non distended SKIN: good turgor EXTREMITIES: no edema
== END 2024-03-26 13:33 | disposition home or self-care (01) ==
PROVIDERS: PCP Internal Medicine; Visit Provider Internal Medicine Hypertension Specialist
DX: N17.9 Acute kidney failure, unspecified (principal); N20.0 Calculus of kidney; I10 Essential (primary) hypertension
CPT/HCPCS: 99214

== ENCOUNTER → 2024-03-26 13:11 | Outpatient (BNVA) | payer MEDICARE, OTHER, SELFPAY | PROVIDERS: PCP Internal Medicine; Visit Provider Internal Medicine Hypertension Specialist | DX: N17.9 Acute kidney failure, unspecified (principal); N20.0 Calculus of kidney; I10 Essential (primary) hypertension | CPT/HCPCS: 99212 ==

== ENCOUNTER → 2024-04-03 16:50 | Outpatient (BNV) | payer MEDICARE, OTHER, SELFPAY | PROVIDERS: PCP Internal Medicine; Visit Provider Radiology Diagnostic Radiology | DX: N20.1 Calculus of ureter (principal); N20.0 Calculus of kidney | CPT/HCPCS: 74176 ==

== ENCOUNTER 2024-05-02 08:50 | Outpatient (AMB) | payer MEDICARE, OTHER, SELFPAY ==
[2024-05-02 09:00] VITALS: BP 90/62; PULSE 76
--- NOTE | 2024-05-02 09:00 | A.OFFVIS_ITS ---
Vital Signs 05/02/24 09:00 Height 5 ft 10 in Weight 208 lb 15.971 oz BMI 30.0 BP 90/62 Blood Pressure Location Lt brachial Position Sitting Pulse 76 Pulse Source Monitor Intake Visit Reasons: f/u/ preop Lens Generating Machine Tender Required: No Allergies gadobenic acid [Multihance] Allergy (Severe, Verified 05/02/24 09:04) Rash azithromycin [From ZITHROMAX Z-JOYCE] Allergy (Intermediate, Verified 05/02/24 09:04) HIVES Iodinated Contrast Media [IV CONTRAST] Allergy (Intermediate, Verified 05/02/24 09:04) HIVES Penicillins Allergy (Mild, Verified 05/02/24 09:04) RASH Medication List - Last Reconciled 05/02/24 by KENIA EliasC allopurinol 100 mg PO DAILY apixaban (Eliquis) 5 mg PO BID atorvastatin 80 mg PO DAILY brimonidine 0.1% (Alphagan P) 1 drp ophthalmic (eye) BID dronedarone (Multaq) 400 mg PO Q12H 90 days finasteride 5 mg PO DAILY 90 days finasteride 5 mg PO DAILY mometasone-formoterol 200-5 mcg/actuation (Dulera) 1 puff inhalation BID montelukast 10 mg PO DAILY@1200 potassium citrate ER 10 mEq PO BID 90 days tamsulosin 0.4 mg PO BEDTIME tiotropium bromide 2.5 mcg/actuation (Spiriva Respimat) 2 inhalations inhalation DAILY HPI HPI f/u/ preop: Details: Erasmo is a 78-year-old male with past medical history of hyperlipidemia, CAD with LAD stent, PVCs, paroxysmal atrial fibrillation, currently suppressed with Multaq, nonischemic cardiomyopathy, aortic stenosis who presents for follow-up. Today he reports that he is having a cystoscopy with bilateral ureter stents placement next week. He has been having issues with kidney stones. No hematuria at this time. He has had it in the past. No chest discomfort at rest or with activity. No shortness of breath, PND, orthopnea or edema. No heart palpitations, lightheadedness, presyncope, syncope. He does have unsteadiness when he walks and uses a walker. His blood pressure runs low but he denies symptoms. Compliant with meds. is present. COUNT INCLUDES [facility] Medical History Pulmonary nodules Chronic restrictive lung disease Chronic renal disease Nonsustained ventricular tachycardia PVCs (premature ventricular contractions) CAD (coronary artery disease) Dyspnea Chronic allergic rhinitis Asthma Sarcoidosis Surgical History H/O hernia repair Stented coronary artery Family History Father Atrial fibrillation Mother Atrial fibrillation Other Asthma Social History Household Members: Spouse Housing: House Do you presently have visiting nurse or other home services: No Alcohol intake: never Patient Tobacco Use Status: Never used Tobacco Tobacco use type: Cigar e-Cigarette/Vaping Use: Never Used Second Hand Smoke Exposure: No Advance Directives Date on File: 09/14/23 service: No Review of Systems Const All systems reviewed & are unremarkable except as noted in HPI and below ENT Denies dizziness Card Denies chest pain, Denies chest pain at rest, Denies chest pain with activity, Denies rapid heart rate, Denies pedal edema, Denies edema, Denies leg edema, Denies lightheadedness, Denies palpitations, Denies dyspnea, Denies dyspnea on exertion and Denies orthopnea Resp Denies cough, Denies dyspnea and Denies dyspnea on exertion GI Denies hematochezia and Denies change in stool character Details: bilateral kidney stones Musc Reports abnormal gait (uses walker, unsteady), Denies limited range of motion, Denies muscle cramps, Denies muscle weakness, Denies numbness, Denies radiating pain into limb, Denies stiffness and Denies tingling Neuro Reports abnormal gait (uses walker, unsteady), Denies dizziness, Denies numbness and Denies tingling Endo Denies palpitations Physical Exam Vital Signs: Last Vital Signs Pulse 76 05/02/24 09:00 BP 90/62 05/02/24 09:00 BMI result Body Mass Index 30.0 Const General: cooperative, healthy appearing, comfortable and no acute distress Orientation/consciousness: patient oriented x3 Neck Neck: Yes normal visual inspection Resp Effort & Inspection: normal respiratory effort Auscultation: clear to auscultation bilaterally, no rales, no rhonchi and no wheezes Cardio Rate: regular rate Rhythm: regular rhythm Heart sounds: S1 normal heart sound present, S2 normal heart sound present, no murmurs and no rubs Neuro General: patient oriented x3 Extrem General: Yes normal to inspection and No no pedal edema Psych Appearance: grossly normal Mental Status: mental status grossly normal Speech and movement: Normal speech and movement present Office Procedures EKG Details: Today, read by me, sinus rhythm with 1 PVC, rate 76, QTC 463 milliseconds [id number], Complete Assessment & Plan Assessment & Plan (1) Cardiomyopathy: Code(s): I42.9 - Cardiomyopathy, unspecified Category: Medical Plan: History of nonischemic cardiomyopathy. Last echo 01/25/2023 showed EF 40-45%. He does have a known history of CAD with prior LAD stent. Nuclear stress test done 03/27/2023 shows no clear ischemia or infarct. A cardiac MRI was done 04/28/2023 which did show EF 35%, no specific findings of infarct or infiltrative disease, moderate aortic stenosis. His blood pressure runs low and he has not been on neurohormonal modulation for this reason. He does not appear fluid overloaded on examination. Signs and symptoms of heart failure reviewed with him. Will update echocardiogram. Cardiology follow-up in 3 months, sooner if needed. (2) Paroxysmal atrial flutter: Code(s): I48.92 - Unspecified atrial flutter Category: Medical Plan: History of paroxysmal atrial fibrillation which is currently suppressed with Multaq. EKG done today showing sinus rhythm with 1 PVC, rate 76, QTC 463 milliseconds. He is on Eliquis for anticoagulation. Labs done 03/01/2024 showed creatinine 1.18 which is high for him. Eliquis dose of 5 mg b.i.d. is still appropriate for his age and weight. Office EKG in 3 months. (3) CAD (coronary artery disease): Code(s): I25.10 - Atherosclerotic heart disease of [place] coronary artery without angina pectoris Category: Medical Plan: History of CAD with LAD stent. Last nuclear stress test as above showing no infarct or ischemia. No anginal symptoms. Continue med management. He is not on aspirin as he is on Eliquis. He is on atorvastatin with ideal LDL goal less than 70. Labs done 03/01/2024 showed LDL 60. (4) Aortic stenosis: Code(s): I35.0 - Nonrheumatic aortic (valve) stenosis Category: Medical Plan: Echocardiogram 12/2022 showed mild aortic stenosis. Cardiac MRI 04/28/2023 showed moderate aortic stenosis. He has no significant murmur on examination. Will update echocardiogram will plan to discuss results at next visit. (5) Preop cardiovascular exam: Code(s): Z01.810 - Encounter for preprocedural cardiovascular examination Category: Medical Plan: Preop for cystoscopy with bilateral stent placement with Dr. Edwar Taveras, next week. He may proceed with low to intermediate cardiac risk. Blood pressure runs on low side. Eliquis can be held as directed by surgeon, recommend 2-3 days prior to the procedure. Call/consult Cardiology if needed. Plan Time spent on chart review, documentation, interviewing assessment Orders: Orders CA echo transthoracic complete 6 Weeks I35.0 - Nonrheumatic aortic (valve) stenosis, I42.9 - Cardiomyopathy, unspecified Coding Level of Care Code Est Pt Level 4 (85527) Complex EM visit Add On G2211 Diagnoses Cardiomyopathy I42.9 Paroxysmal atrial flutter I48.92 CAD (coronary artery disease) I25.10 Aortic stenosis I35.0 Preop cardiovascular exam Z01.810 CPT Codes EKG - CPT: 64700-Adipkvoblmdkqbhcf, Complete ([id number]) Time Spent (min) 32
--- OUTSIDE RECORDS SUMMARY | 2024-05-02 09:35 | XMS_ITS ---
Author Organization Moris Yu MD Address [address] [place], [place] [id number] Care Team Providers Care Patient Office Rep Name Role Phone Moris Yu Primary Care Provider Results Component Value Reference Range Notes Complete Blood Count Auto Di ff Reviewed date:03/01/2024 11:46:39 AM Interpretation: Performing Lab:[facility], [address] [place] [phone] Notes/Report: White Blood Count 5.6 4.8-10.8 X10*3/uL [...] NRBC Abs Auto 0.000 0.0-0.012 X10*3/uL Comprehensive [place]. Panel Fa st Reviewed date:03/01/2024 12:19:08 PM Interpretation: Performing Lab:[facility], [address] [place] [phone] Notes/Report: Sodium 141 135-145 mmol/L Potassium 4.4 [...] Panel Reviewed date:03/01/2024 12:18:48 PM Interpretation: Performing Lab:[facility], [address] [place] [phone] Notes/Report: Triglycerides 76 <150 mg/dL Desirable Triglyceride: [...] (Free>4and<10) Reviewed date:03/01/2024 12:19:16 PM Interpretation: Performing Lab:[address] [phone] Notes/Report: PSA,Total (Free>4and<10) 0.20 0.00-4.00 ng/mL A [...] Reviewed date:03/08/2024 11:48:58 AM Interpretation:BETSY 03/08/24 Performing Lab:[facility], [address] [place] [phone] Notes/Report: Urine, Clean Catch Color Urine Yellow Appearance Urine Hazy PH 6.0 5.0-9.0 Glucose Urine UA Negative Negative mg/dL Urine Blood Large (3+) Negative Specific [place] - Urine 1.020 1.005-1.025 Urine Protein Trace [...] Date Provider Diagnosis Moris Yu MD [address] [place] [phone] 03/01/2024 Moris Yu Pure hypercholestero lemia E78.00 [...] Provider Name:Moris Wiggins ier, 09/06/2024 08:00:00 AM, [address] [place] [address], [address], [phone], Provider Name:Moris Wiggins ier, 09/13/2024 02:00:00 PM, [address] [place] [address], [address], [phone], Provider Name:Moris Wiggins ier, 03/06/2025 08:00:00 AM, [address] [place] [address], [phone], Provider Name:Moris Wiggins ier, 03/13/2025 02:30:00 PM, [address] [place] [address], [phone], Progress Notes * Erasmo QUEVEDO BDOB: (78 yo M)Acc No.[id number]:03/01/2024 Progress Note Patient:?Erasmo QUEVEDO Provider:?Moris Yu MD :1945???Age:78 Y???Sex:Male Rakesh e:03/01/2024 Address:[address], [address] [facility] [phone] Subjective: * Chief Complaints: * ???1. Annual labs. * Medical History:? Objective: * Vitals:? Assessment: * Assessment: 1.?Pure hypercholesterolemia - E78.00 (Primary)???2.?Thrombocytopenia - D69.6???3.?Chronic congestive heart failure, unspecified heart failure type - I50.9??? Plan: * Treatment: 2.?Thrombocytopenia?LAB: Complete Blood Count Auto Diff (Collection Date & Time - 03/01/2024 08:15 AM) ?LAB: Comprehensive [place]. Panel Fast (Collection Date & Time - [...] Time - 03/01/2024 08:15 AM) ?LAB: Comprehensive [place]. Panel Fast (Collection Date & Time - 03/01/2024 08:15 AM) ?LAB: Lipid Panel (Collection Date & Time - 03/01/2024 08:15 AM) ?LAB: PSA,Total (Free>4and<10) (Collection Date & Time - 03/01/2024 08:15 AM) ?LAB: UA ClnCatch+Micro w/rflx Cult (Collection Date & Time - 03/01/2024 08:15 AM) * Procedure Codes:?41215 VENIP UNCT, ROUTINE* * * The named appointment provid er may or may not be the originator of this progress note, and it is not deemed complete until electronically signed by the appointment provider. Sign off status: Pending * Provider:?Moris Yu MD Date:?0 03/01/2024 Generated for Marie vázquez/Jacob/Tuckeritting on:?05/02/2024 09:34 AM EST
--- OUTSIDE RECORDS SUMMARY | 2024-05-02 09:35 | XMS_ITS | Continuity of Care Document ---
Author Name [facility] Organization [facility] Care Team Providers Care Farm Boss Name Role Phone [facility] Unavailable Unavailable Medications Combined list of outpatient medications from Department of Defense and Veterans Affairs facilities.Medications provided include 1) outpatient medications from the last 15 months, and 2) patient-reported medications. Medication Details Route Status Patient Instructions Prescription Expires Prescription Number Last Dispense Date Ordering Provider Order Date Order Qty Source ALLOPURINOL (ALLOPURINO L), 100MG, TABLET, ORAL, [facility], 1000 ea. BOTTLE Active [id number] 4 2023 90 Pharmac y Data Transac tion Service Facilit y AMOX TR-POTASSIU M CLAVULANATE (AMOXICILLI N/POTASSIUM CLAV), 875-125 MG, TABLET, ORAL, [facility], 20 ea. BOTTLE Active [id number] 4 2023 14 Pharmac y Data Transac tion Service Facilit y ATORVASTATI N CALCIUM (atorvastat in calcium), 80 MG, TABLET, ORAL, [facility], 500 ea. BOTTLE Active [id number] 4 2023 90 Pharmac y Data Transac tion Service Facilit y BISOPROLOL FUMARATE (bisoprolol fumarate), 5 MG, TABLET, ORAL, [facility]., 100 ea. BOTTLE Active [id number] 4 2023 90 Pharmac y Data Transac tion Service Facilit y BISOPROLOL FUMARATE (bisoprolol fumarate), 5 MG, TABLET, ORAL, [facility] 100 ea. BOTTLE Active [id number] 4 2023 90 Pharmac y Data Transac tion Service Facilit y ELIQUIS (APIXABAN), 5 MG, TABLET, ORAL, [facility] , 60 ea. BOTTLE Active [id number] 4 2023 180 Pharmac y Data Transac tion Service Facilit y ELIQUIS (APIXABAN), 5 MG, TABLET, ORAL, [facility] , 60 ea. BOTTLE Active [id number] 4 2023 180 Pharmac y Data Transac tion Service Facilit y ELIQUIS (APIXABAN), 5 MG, TABLET, ORAL, [facility] , 60 ea. BOTTLE Cancele d [id number] : 2023 0 Pharmac y Data Transac tion Service Facilit y ELIQUIS (APIXABAN), 5 MG, TABLET, ORAL, [facility] , 60 ea. BOTTLE Cancele d [id number] : 2023 0 Pharmac y Data Transac tion Service Facilit y ELIQUIS (APIXABAN), 5 MG, TABLET, ORAL, [facility] , 60 ea. BOTTLE Active [id number] 4 2023 60 Pharmac y Data Transac tion Service Facilit y FINASTERIDE (FINASTERID E), 5 MG, TABLET, ORAL, [facility], 90 ea. BOTTLE Active [id number] 4 2023 90 Pharmac y Data Transac tion Service Facilit y FINASTERIDE (FINASTERID E), 5 MG, TABLET, ORAL, [facility], 90 ea. BOTTLE Active [id number] 4 2023 90 Pharmac y Data Transac tion Service Facilit y FINASTERIDE (FINASTERID E), 5 MG, TABLET, ORAL, [facility], 90 ea. BOTTLE Active [id number] 4 2023 90 Pharmac y Data Transac tion Service Facilit y MULTAQ (DRONEDARON E HYDROCHLORI DE), 400 MG, TABLET, ORAL, [facility], 60 ea. BOTTLE Active [id number] 4 2023 180 Pharmac y Data Transac tion Service Facilit y MULTAQ (DRONEDARON E HYDROCHLORI DE), 400 MG, TABLET, ORAL, [facility], 60 ea. BOTTLE Active [id number] 4 2023 60 Pharmac y Data Transac tion Service Facilit y MULTAQ (DRONEDARON E HYDROCHLORI DE), 400 MG, TABLET, ORAL, [facility], 60 ea. BOTTLE Active [id number] 4 2023 60 Pharmac y Data Transac tion Service Facilit y POTASSIUM CITRATE (POTASSIUM CITRATE), 10MEQ, TABLET SA, ORAL, [facility]ER[facility], 100 ea. BOTTLE Active [id number] 4 2023 200 Pharmac y Data Transac tion Service Facilit y POTASSIUM CITRATE (POTASSIUM CITRATE), 10MEQ, TABLET SA, ORAL, [facility], 100 ea. BOTTLE Active [id number] 2023 200 Pharmac y Data Transac tion Service Facilit y Immunizations Combined list of available immunizations from the Department of Defense and Veterans Affairs facilities. Immunization Series Date Given Administered By Site Reaction Lot Number CVX Code Drug Bushler Status Comments Source Tdap 2019 BOGDASARIAN, () Not Given Tdap [facility] Influenza, injectable, MDCK, quadrivalent, preservative 2018 ANNABEL,D () Not Given Influenza , injectabl e, MDCK, quadrival ent, preservat mele [facility] zoster recombinant 2018 ANNABEL,D () [...]
--- OUTSIDE RECORDS SUMMARY | 2024-05-02 09:35 | XMS_ITS | Clinical Summary ---
Author Organization [facility] Address [address] [place] [address] Phone Care Team Providers Care Plastering Supervisor Name Role Phone Moris Yu MD Primary [...] age to complete this topic Insurance MEDICARE [facility] MEDICARE [facility] Care Teams Plastering Supervisor Relationship Specialty Start Date End Date Moris Yu MD [address] [place] [address] PCP - General Internal Medicine 08/14/20
--- OUTSIDE RECORDS SUMMARY | 2024-05-02 09:35 | XMS_ITS ---
Author Organization Moris Yu MD Address [address] [place] [phone] Care Team Providers Care Otolaryngology Nurse Name Role Phone Moris Yu Primary Care Provider [phone] REASON FOR VISIT UGI orders Encounters Encounter Location Date Provider Diagnosis Moris Yu MD [address] [place] [address] [place] [id number] 04/05/2024 Moris Yu Abnormal computed tomography of abdomen and pelvis R93.5 Assessments Encounter Date Diagnosis (ICD Code) Assessment Notes Treatment Notes Treatment Clinical Notes Section Notes 04/05/2024 Abnormal computed tomography of abdomen and pelvis (ICD-10 - R93.5) Plan Of Treatment Pending Test Test Name Order Date XR GI SERIES 04/05/2024 Next Appt Details Provider Name:Moris delgadillo, 09/06/2024 08:00:00 AM, [address] [place] [address], [address], [phone], Provider Name:Moris delgadillo, 09/13/2024 02:00:00 PM, [address] [place] [address], [address], [phone], Provider Name:Moris delgadillo, 03/06/2025 08:00:00 AM, [address] [place] [address], [address], [phone], Provider Name:Moris delgadillo, 03/13/2025 02:30:00 PM, [address] [place] [address], [address], [phone], Progress Notes * Erasmo QUEVEDOOB: 6 (78 yo M)Acc No.[id number]:04/05/2024 Patient:?Erasmo QUEVEDO :1945???Age:78 Y???Sex:Male Address:[address] [address] Subjective: * Chief Complaints: * ???UGI orders * Medical History:? * Surgical History:? * Hospitalization/Major Diagno stic Procedure:? * Medications:? Objective: * Vitals:? * Physical Examination:? Assessment: * Assessment: 1.?Abnormal computed tomogra phy of abdomen and pelvis - R93.5??? Plan: * Treatment: * Procedure Codes:? * true * Date:? Generated for Marie vázquez/Jacob/eTtitasmitting on:?05/02/2024 09:34 AM EST
--- OUTSIDE RECORDS SUMMARY | 2024-05-02 09:36 | XMS_ITS ---
Author Organization Moris Yu MD Address [address] [place] [phone] Care Team Providers Care Marketing Traffic Coordinator Name Role Phone Moris Yu Primary Care Provider [phone] Allergies Allergen (clinical drug ingredient) Drug/Non Drug Allergy documented on EMR Reaction Allergy Type Onset Date Status azithromycin Zithromax Z-Jhonny severe diarrhea Drug Allergy Active penicillin G Penicillin G Potassium rash Drug Allergy Active Doxycycline Calcium hives Drug Allergy Active Gadolinium and/or gadolinium compound (FN) gadalinium (uncoded) hives Allergy Active Gadavist hives Drug Allergy Active REASON FOR VISIT CBACK [...] Location Date Provider Diagnosis Moris Yu MD [address] [place] [address] [place] [phone] 03/08/2024 Moris Yu Gross hematuria R31. 0 [...] 08:00:00 AM, [address], [address], [place], [place], [phone], Provider Name:Moris San Bradyeunice ier, 09/13/2024 02:00:00 PM, [address], [address], [place], [place], [phone], Provider Name:Moris eastmanr, 03/06/2025 08:00:00 AM, [address], [address], [place], [phone], Provider Name:Moris Mena Feliciano eastmanr, 03/13/2025 02:30:00 PM, [address], [address], [place], [phone], Progress Notes * Erasmo QUEVEDO BDOB: (78 yo M)Acc No.[id number]:03/08/2024 Patient:?Erasmo Quevedo B Provider:?Moris Yu MD :1945???Age:78 Y???Sex:Male Rakesh e:03/08/2024 Address:[address]-[address] Subjective: * Chief Complaints: * ???CBACK [...] Pets: none. no Travel outside of the [place]. * Medications:?TakingMultaq 40 0 MG Tablet [...] Auto 0.000 0.0-0. 012 - X10*3/uL ???Lab:[facility] [place]. P [facility] (Order Date - 03/01/2024) [...] Blood Large (3+) A Negative - ?Specific [place] - Urine 1.020 1.005-1.025 - ?Urine Protein [...] MD Date:?0 03/08/2024 Generated for Marie vázquez/Jacob/Tuckeritting on:?05/02/2024 09:35 AM EST History and Physical Notes * [...]
--- OUTSIDE RECORDS SUMMARY | 2024-05-02 09:36 | XMS_ITS | Clinical Summary ---
Author Organization [facility] Address [address] [place] [address] Care Team Providers Care Firebrick And Refractory Tile Repairer Name Role Phone Moris Yu MD Primary Care Provider [phone] Allergies Active Allergy Reactions Criticality Noted Date [...] mg by nebulization daily. 0 Active Tiotropium [place] Monohydrate (SPIRIVA RESPIMAT) 2.5 MCG/ACT AERS Inhale [...] this topic Medical Devices Implanted Type Area Quebracho Tanner Device Identifier Shelf Expiration Date Model / Serial / Lot Shell Trident Ii F 58mm 5 Screw Hole Cluster Tritanium - [id number] - [id number] Implanted:Qty: 1 on 08/29/2019 by Ron Sanchez MD at [facility] Right: Hip [employer] [id number] 12/24/2023 702-04-58F / / [id number] Screw Trident Ii 30mm 6.5mm Low Profile Hexagonal Bone - 820699 - [id number] Implanted:Qty: 1 on 08/29/2019 by Ron Sanchez MD at [facility] Right: Hip [employer] [id number] 01/08/2024 5289-8844 / / 33TH Insert Trident 10d F 36mm X3 Acetabular Hip - 773114 - [id number] Implanted:Qty: 1 on 08/29/2019 by Ron Sanchez MD at [facility] Right: Hip [employer] [id number] 01/14/2024 623-10-36F / / [id number] Screw Trident Ii 30mm 6.5mm Low Profile Hexagonal Bone - 415912 - [id number] Implanted:Qty: 1 on 08/29/2019 by Ron Sanchez MD at [facility] Right: Hip [employer] [id number] 12/10/2023 5574-9684 / / [id number] Stem Hip Neck Angle 127 Degree Accolade Ii Sz6 - 357027 - [id number] Implanted:Qty: 1 on 08/29/2019 by Ron Sanchez MD at [facility] Right: Hip [employer] [id number] 10/04/2022 6232-7752 / / [id number] Head V40 -5mm 36mm Delta Femoral Hip - 075936 - [id number] Implanted:Qty: 1 on 08/29/2019 by Ron Sanchez MD at [facility] Right: Hip [employer] [id number] 07/31/2024 6570-0-036 / / [id number] Advance Directives For more information, please contact: [phone] Latest Code Status on File Code Status [...] way: discussion with patient . Care Teams Firebrick And Refractory Tile Repairer Relationship Specialty Start Date End Date Moris Yu MD [address] [place] [address] PCP - General Internal Medicine 06/26/19
--- OUTSIDE RECORDS SUMMARY | 2024-05-02 09:36 | XMS_ITS | Clinical Summary ---
Author Organization [facility] it Address [address] [place] [address] Care Team Providers Care Stock Clerk Self Service Store Name Role Phone Moris Yu MD Primary [...] TOTAL HIP; Surgeon: Ron Sanchez MD; [facility]: [facility] Service: Orthopedics; [...] s Sarcoidosis, lung (CMS/HCC) DX:S arcoidosis, lung ([facility]) PVC (premature ventricular contraction) DX:PVC (premature ventricular [...] this topic Medical Devices Implanted Type Area [employer] Business Analyst Device Identifier Shelf Expiration Date Model / Serial / Lot Shell Trident Ii F 58mm 5 Screw Hole Cluster Tritanium - [id number] Implanted:Qty: 1 on 08/29/2019 by Ron Sanchez MD Right: Hip [employer] [id number] 12/24/2023 702-04-58F / / [id number] Screw Trident Ii 30mm 6.5mm Low Profile Hexagonal Bone - [id number] Implanted:Qty: 1 on 08/29/2019 by Ron Sanchez MD Right: Hip [employer] [id number] 01/08/2024 2983-2146 / / 33TH Insert Trident 10d F 36mm X3 Acetabular Hip - [id number] Implanted:Qty: 1 on 08/29/2019 by Ron Sanchez MD Right: Hip [employer] [id number] 01/14/2024 623-10-36F / / [id number] Screw Trident Ii 30mm 6.5mm Low Profile Hexagonal Bone - [id number] Implanted:Qty: 1 on 08/29/2019 by Ron Sanchez MD Right: Hip [employer] [id number] 12/10/2023 8842-0851 / / 3HYD Stem Hip Neck Angle 127 Degree Accolade Ii Sz6 - [id number] Implanted:Qty: 1 on 08/29/2019 by oRn Sanchez MD Right: Hip [employer] [id number] 10/04/2022 2931-9376 / / [id number] Head V40 -5mm 36mm Delta Femoral Hip - [id number] Implanted:Qty: 1 on 08/29/2019 by Ron Sanchez MD Right: Hip [employer] [id number] 07/31/2024 6570-0-036 / / [id number] Care Teams Stock Clerk Self Service Store Relationship Specialty Start Date End Date Moris Yu MD PCP - General Internal Medicine 01/24/17
--- OUTSIDE RECORDS SUMMARY | 2024-05-02 09:36 | XMS_ITS | Data Portability ---
Author Organization [place] [facility] Mena Zaldivar [place] Address [address] [place] [address] Care Team Providers Care Silver Recovery Operator Name Role Phone CHRISTIAN WEBB Primary Care [...] view 023 09/23/19 23 [email or web address] [facility], [address], [place], [address], 16:12:07 Medication Orders None record ed. Patient TargetsNo targets recorded. Patient Instructions Encounter Date Encounter Id Patient Instructions Last Modified By Organization Details Last Modified Time 09/22/2022 [id number] three-view x-ray of the right hip reveals well-seated well-positioned total hip arthroplasty without sign of loosening. Not available 09/22/2022 13:42:30 Reason for Referral None Reported. Procedures Surgical History Date Name Laterality Status Provider Name and Address Organization Details Recorded Time total replacement of hip completed Marylou Bradshaw [place] [facility], 09/22/2022 15:39:52 Imaging Results None recorded. Procedure [...] Updated DateTime 09/22/2022 154.94 cm 43.5 kg/m2 453655.25 g [facility] 09/22/2022 14:14:14 Social History Question Answer Notes LastModified by Organizat ion Details LastModified Time Tobacco Smoking Status Never Smoker Marylou Bradshaw [facility], [place] [facility] 09/22/2022 15:42:02 What Is Your Level [...] SNOMED-CT Code Diagnosis ICD10 Code Diagnosis Note [id number] MD DUSTY Whitneynina [address] [address] 09/22/2022 13:17:45 09/22/2022 13:52:32 History of total replacement of right hip joint [id number] 24087 Z96.641 Health Concerns Section Related Observation LastModified by Organization Jerald angeles LastModified Time None Recorded Concern Status LastModified by Organization Details LastModified Time None Recorded Advance Directives Directive None Recorded Payers Encounter Date Sequence Insurance Name Policy Number Policy Grijalva Covered Member ID Grijalva Member ID Guarantor Name 09/22/2022 1 [place]ICARE [place]: [employer] Erasmo Quevedo [id number] Erasmo Quevedo 09/22/2022 2 WPS - FOR LIFE (MEDICARE SUPPLEMENT) Erasmo Quevedo [id number] Erasmo Gamal Quevedo Notes Date Note Type [...] prior to dental work. COREEN SIMS PA-C [address] [place] [address], [place], [address], [place] [facility], 09/22/2022 13:52:09
== END 2024-05-02 09:40 | disposition home or self-care (01) ==
PROVIDERS: PCP Internal Medicine; Visit Provider Nurse Practitioner Family
DX: I42.9 Cardiomyopathy, unspecified (principal); I48.92 Unspecified atrial flutter; I25.10 Atherosclerotic heart disease of native coronary artery without angina pectoris; I35.0 Nonrheumatic aortic (valve) stenosis; Z01.810 Encounter for preprocedural cardiovascular examination
CPT/HCPCS: 93010; 99214; G2211

== ENCOUNTER → 2024-05-02 08:50 | Outpatient (BNVA) | payer MEDICARE, OTHER, SELFPAY | PROVIDERS: PCP Internal Medicine; Visit Provider Nurse Practitioner Family | DX: Z01.810 Encounter for preprocedural cardiovascular examination (principal); I25.10 Atherosclerotic heart disease of native coronary artery without angina pectoris; I42.8 Other cardiomyopathies; I35.0 Nonrheumatic aortic (valve) stenosis; I48.92 Unspecified atrial flutter; Z79.899 Other long term (current) drug therapy | CPT/HCPCS: 93005; 99212 ==

== ENCOUNTER 2024-05-07 10:10 | Day surgery (SDC) | payer MEDICARE, OTHER, SELFPAY ==
--- OUTSIDE RECORDS SUMMARY | 2024-04-25 11:47 | XMS_ITS ---
Author Organization Moris Yu MD Address [address] [place], [place] [phone] Care Team Providers Care Engineering Surveyor Name Role Phone Moris Yu Primary Care Provider Results Component Value Reference Range Notes Complete Blood Count Auto Di ff Reviewed date:03/01/2024 11:46:39 AM Interpretation: Performing Lab:[facility], [address] [place] [phone] Notes/Report: White Blood Count 5.6 4.8-10.8 X10*3/uL [...] NRBC Abs Auto 0.000 0.0-0.012 X10*3/uL Comprehensive [place]. Panel Fa st Reviewed date:03/01/2024 12:19:08 PM Interpretation: Performing Lab:[facility], [address] [place] [phone] Notes/Report: Sodium 141 135-145 mmol/L Potassium 4.4 [...] Panel Reviewed date:03/01/2024 12:18:48 PM Interpretation: Performing Lab:[facility], [address] [place] [phone] Notes/Report: Triglycerides 76 <150 mg/dL Desirable Triglyceride: [...] (Free>4and<10) Reviewed date:03/01/2024 12:19:16 PM Interpretation: Performing Lab:[address] [phone] Notes/Report: PSA,Total (Free>4and<10) 0.20 0.00-4.00 ng/mL A [...] Reviewed date:03/08/2024 11:48:58 AM Interpretation:BETSY 03/08/24 Performing Lab:[facility], [address] [place] [phone] Notes/Report: Urine, Clean Catch Color Urine Yellow Appearance Urine Hazy PH 6.0 5.0-9.0 Glucose Urine UA Negative Negative mg/dL Urine Blood Large (3+) Negative Specific [place] - Urine 1.020 1.005-1.025 Urine Protein Trace [...] Location Date Provider Diagnosis Moris Yu MD [address] [place] [phone] 03/01/2024 Moris Yu Pure hypercholestero lemia E78.00 [...] Provider Name:Moris Wiggins ier, 09/06/2024 08:00:00 AM, [address] [place] [address], [address], [phone], Provider Name:Moris Wiggins ier, 09/13/2024 02:00:00 PM, [address] [place] [address], [address], [phone], Provider Name:Moris Wiggins ier, 03/06/2025 08:00:00 AM, [address] [place] [address], [phone], Provider Name:Moris Wiggins ier, 03/13/2025 02:30:00 PM, [address] [place] [address], [phone], Progress Notes * Erasmo QUEVEDO BDOB: (78 yo M)Acc No.[id number]:03/01/2024 Progress Note Patient:?Erasmo QUEVEDO Provider:?Moris Yu MD :1945???Age:78 Y???Sex:Male Rakesh e:03/01/2024 Address:[address], [address] [facility] [phone] Subjective: * Chief Complaints: * ???1. Annual labs. * Medical History:? Objective: * Vitals:? Assessment: * Assessment: 1.?Pure hypercholesterolemia - E78.00 (Primary)???2.?Thrombocytopenia - D69.6???3.?Chronic congestive heart failure, unspecified heart failure type - I50.9??? Plan: * Treatment: 2.?Thrombocytopenia?LAB: Complete Blood Count Auto Diff (Collection Date & Time - 03/01/2024 08:15 AM) ?LAB: Comprehensive [place]. Panel Fast (Collection Date & Time - [...] Time - 03/01/2024 08:15 AM) ?LAB: Comprehensive [place]. Panel Fast (Collection Date & Time - 03/01/2024 08:15 AM) ?LAB: Lipid Panel (Collection Date & Time - 03/01/2024 08:15 AM) ?LAB: PSA,Total (Free>4and<10) (Collection Date & Time - 03/01/2024 08:15 AM) ?LAB: UA ClnCatch+Micro w/rflx Cult (Collection Date & Time - 03/01/2024 08:15 AM) * Procedure Codes:?12159 VENIP UNCT, ROUTINE* * * The named appointment provid er may or may not be the originator of this progress note, and it is not deemed complete until electronically signed by the appointment provider. Sign off status: Pending * Provider:?Moris Yu MD Date:?0 03/01/2024 Generated for Marie vázquez/Jacob/Tuckeritting on:?04/25/2024 11:47 AM EST
--- OUTSIDE RECORDS SUMMARY | 2024-04-25 11:47 | XMS_ITS | Clinical Summary ---
Author Organization [employer] [facility] it Address [address] [place] [address] Care Team Providers Care Enterprise Engineer Name Role Phone Moris Yu MD Primary Care Provider Surgical History Surgery Date Site/Laterality Comments HERNIA [...] TOTAL HIP; Surgeon: Ron Sanchez MD; Location: [facility] Service: Orthopedics; Laterality: Right; JOINT REPLACEMENT PROCEDURE:JOINT REPLACEMENT Medical History Medical History Date Comments Asthma 11/08/2016 DX:Asthma Interstitial lung disease (CMS/HCC) 11/08/2016 DX:Interstitial lung disease (HCC) Pulmonary sarcoidosis (CMS/HCC) 11/24/2016 DX:Pulmonary sarcoidosis (HCC) Seasonal allergic rhinitis 11/24/2016 DX:Se asonal allergic rhinitis Nephrolithiasis 03/17/2017 DX:Nephrolithias is; COMMENT: 06/29/2015 Hyperlipidemia 04/20/2017 DX:Hyperlipidemi a Asthma DX:Asthma Hypertension DX:Hypertension Kidney damage DX:Kidney damage Osteoarthritis DX:Osteoarthriti s Sarcoidosis, lung (CMS/HCC) DX:S arcoidosis, lung ([facility]) PVC (premature ventricular contraction) DX:PVC (premature ventricular [...] at Not on file Legal Sex Male 12:05 PM EST Gender Identity Not on file Sexual Orientation Not on file Obstetrics History Plan of Treatment Health Maintenance Due Date Last Done Comments DTaP,Tdap,and Td Vaccines (1 - Tdap) 1964 Zoster Vaccines (1 of 2) 05/04/1995 Pneumococcal Vaccine: 50+ Ye ars (2 of 2 - PCV) [...] patient's age to complete this topic Meningococcal B Vacine Aged Out No lo nger eligible based on patient's age to complete this topic RSV Immunization Patients Un janice 20 months Aged Out No longer eligible b ased on patient's age to complete this topic Varicella Vaccines Aged Out No longer eligible based on patient's age to complete this topic Medical Devices Implanted Type Area Vortex Operator Device Identifier Shelf Expiration Date Model / Serial / Lot Shell Trident Ii F 58mm 5 Screw Hole Cluster Tritanium - [id number] Implanted:Qty: 1 on 08/29/2019 by Ron Sanchez MD Right: Hip [employer] [id number] 12/24/2023 702-04-58F / / [id number] Screw Trident Ii 30mm 6.5mm Low Profile Hexagonal Bone - [id number] Implanted:Qty: 1 on 08/29/2019 by Ron Sanchez MD Right: Hip [employer] [id number] 01/08/2024 2820-6810 / / 33TH Insert Trident 10d F 36mm X3 Acetabular Hip - [id number] Implanted:Qty: 1 on 08/29/2019 by Ron Sanchez MD Right: Hip [employer] [id number] 01/14/2024 623-10-36F / / [id number] Screw Trident Ii 30mm 6.5mm Low Profile Hexagonal Bone - [id number] Implanted:Qty: 1 on 08/29/2019 by Ron Sanchez MD Right: Hip [employer] [id number] 12/10/2023 4475-0495 / / 3HYD Stem Hip Neck Angle 127 Degree Accolade Ii Sz6 - [id number] Implanted:Qty: 1 on 08/29/2019 by Ron Sanchez MD Right: Hip [employer] [id number] 10/04/2022 6511-4479 / / [id number] Head V40 -5mm 36mm Delta Femoral Hip - [id number] Implanted:Qty: 1 on 08/29/2019 by Ron Sanchez MD Right: Hip [employer] [id number] 07/31/2024 6570-0-036 / / [id number] Care Teams Enterprise Engineer Relationship Specialty Start Date End Date Moris Yu MD PCP - General Internal Medicine 01/24/17
--- OUTSIDE RECORDS SUMMARY | 2024-04-25 11:47 | XMS_ITS | Clinical Summary ---
Author Organization [facility] Address [address] [place] [address] Phone Care Team Providers Care Medical Chemist Name Role Phone Moris Yu MD Primary [...] age to complete this topic Insurance MEDICARE [facility] MEDICARE [facility] Care Teams Medical Chemist Relationship Specialty Start Date End Date Moris uY MD [address] [place] [address] PCP - General Internal Medicine 08/14/20
--- OUTSIDE RECORDS SUMMARY | 2024-04-25 11:47 | XMS_ITS ---
Author Organization Moris Yu MD Address [address] [place] [phone] Care Team Providers Care Steward/Stewardess Name Role Phone Moris Yu Primary Care Provider [phone] Allergies Allergen (clinical drug ingredient) Drug/Non Drug [...] Location Date Provider Diagnosis Moris Yu MD [address] [place] [address] [place] [phone] 03/08/2024 Moris Yu Gross hematuria R31. 0 [...] 08:00:00 AM, [address], [address], [place], [place], [phone], Provider Name:Moris San Bradyeunice ier, 09/13/2024 02:00:00 PM, [address], [address], [place], [place], [phone], Provider Name:Moris eastmanr, 03/06/2025 08:00:00 AM, [address], [address], [place], [phone], Provider Name:Moris Mena Feliciano eastmanr, 03/13/2025 02:30:00 PM, [address], [address], [place], [phone], Progress Notes * Erasmo QUEVEDO BDOB: (78 yo M)Acc No.[id number]:03/08/2024 Patient:?Erasmo Quevedo B Provider:?Moris Yu MD :1945???Age:78 Y???Sex:Male Rakesh e:03/08/2024 Address:[address]-[address] Subjective: * Chief Complaints: * ???CBACK [...] Pets: none. no Travel outside of the [place]. * Medications:?TakingMultaq 40 0 MG Tablet [...] Auto 0.000 0.0-0. 012 - X10*3/uL ???Lab:Comprehensive [place]. P iris Fast (Order Date - 03/01/2024) [...] Blood Large (3+) A Negative - ?Specific [place] - Urine 1.020 1.005-1.025 - ?Urine Protein [...] Yu MD Date:?0 03/08/2024 Generated for Marie vázquez/Jacob/Tuckeritting on:?04/25/2024 11:47 AM EST History and Physical Notes * HPI [...]
--- OUTSIDE RECORDS SUMMARY | 2024-04-25 11:47 | XMS_ITS ---
Author Organization Moris Yu MD Address [address] [place] [phone] Care Team Providers Care Patent Agent Name Role Phone Moris Yu Primary Care Provider [phone] REASON FOR VISIT UGI orders Encounters Encounter Location Date Provider Diagnosis Moris Yu MD [address] [place] [address] [place] [phone] 04/05/2024 Moris Yu Abnormal computed tomography of abdomen and pelvis R93.5 Assessments Encounter Date Diagnosis (ICD Code) Assessment Notes Treatment Notes Treatment Clinical Notes Section Notes 04/05/2024 Abnormal computed tomography of abdomen and pelvis (ICD-10 - R93.5) Plan Of Treatment Pending Test Test Name Order Date XR GI SERIES 04/05/2024 Next Appt Details Provider Name:Moris delgadillo, 09/06/2024 08:00:00 AM, [address] [place] [address], [address], [phone], Provider Name:Moris delgadillo, 09/13/2024 02:00:00 PM, [address] [place] [address], [address], [phone], Provider Name:Moris delgadillo, 03/06/2025 08:00:00 AM, [address] [place] [address], [address], [phone], Provider Name:Moris delgadillo, 03/13/2025 02:30:00 PM, [address] [place] [address], [address], [phone], Progress Notes * Erasmo QUEVEDOOB: 6 (78 yo M)Acc No.[id number]:04/05/2024 Patient:?Erasmo QUEVEDO :1945???Age:78 Y???Sex:Male Address:[address] [address] Subjective: * Chief Complaints: * ???UGI orders * Medical History:? * Surgical History:? * Hospitalization/Major Diagno stic Procedure:? * Medications:? Objective: * Vitals:? * Physical Examination:? Assessment: * Assessment: 1.?Abnormal computed tomogra phy of abdomen and pelvis - R93.5??? Plan: * Treatment: * Procedure Codes:? * true * Date:? Generated for Marie vázquez/Jacob/eTransmitting on:?04/25/2024 11:46 AM EST
--- OUTSIDE RECORDS SUMMARY | 2024-04-25 11:47 | XMS_ITS | Clinical Summary ---
Author Organization [facility] Address [address] [place] [address] Care Team Providers Care Profiler Name Role Phone Moris Yu MD Primary Care Provider [phone] Allergies Active Allergy Reactions Criticality Noted Date [...] mg by nebulization daily. 0 Active Tiotropium [place] Monohydrate (SPIRIVA RESPIMAT) 2.5 MCG/ACT AERS Inhale [...] this topic Medical Devices Implanted Type Area Cage Supervisor Device Identifier Shelf Expiration Date Model / Serial / Lot Shell Trident Ii F 58mm 5 Screw Hole Cluster Tritanium - [id number] - [id number] Implanted:Qty: 1 on 08/29/2019 by Ron Sanchez MD at [facility] Right: Hip [employer] [id number] 12/24/2023 702-04-58F / / [id number] Screw Trident Ii 30mm 6.5mm Low Profile Hexagonal Bone - [id number] - [id number] Implanted:Qty: 1 on 08/29/2019 by Ron Sanchez MD at [facility] Right: Hip [employer] [id number] 01/08/2024 2078-9111 / / 33TH Insert Trident 10d F 36mm X3 Acetabular Hip - [id number] - [id number] Implanted:Qty: 1 on 08/29/2019 by Ron Sanchez MD at [facility] Right: Hip [employer] [id number] 01/14/2024 623-10-36F / / [id number] Screw Trident Ii 30mm 6.5mm Low Profile Hexagonal Bone - [id number] - [id number] Implanted:Qty: 1 on 08/29/2019 by Ron Sanchez MD at [facility] Right: Hip [employer] [id number] 12/10/2023 5173-4161 / / [id number] Stem Hip Neck Angle 127 Degree Accolade Ii Sz6 - [id number] - [id number] Implanted:Qty: 1 on 08/29/2019 by Ron Sanchez MD at [facility] Right: Hip [employer] [id number] 10/04/2022 3046-9852 / / [id number] Head V40 -5mm 36mm Delta Femoral Hip - [id number] - [id number] Implanted:Qty: 1 on 08/29/2019 by Ron Sanchez MD at [facility] Right: Hip [employer] [id number] 07/31/2024 6570-0-036 / / [id number] Advance Directives For more information, please contact: [phone] Latest Code Status on File Code Status [...] way: discussion with patient . Care Teams Profiler Relationship Specialty Start Date End Date Moris Yu MD [address] [place] [address] PCP - General Internal Medicine 06/26/19
[2024-05-03 12:55] VITALS: BMI 29.8
--- NOTE | 2024-05-06 09:47 | P.CONAN_ITS ---
Documented by User: Amanda Lan NP 05/06/24 09:51 HPI - Anesthesia Eval Consult details Narrative: 79yo M for Bilateral Cystoscopy, Ureteroroscopy, Retro, Laser,with stent placements s/p same 10/2023 with GA Cardiac optimized. Follows [facility] [place] [facility] for CAD with LAD stent, mild-mod aortic stenosis, PAF (eliquis), CMP (EF 35 by MRI 2023) [facility] Active Problems Active Problems: All Active Problems Preop cardiovascular exam (Acute) Aortic stenosis (Acute) Bilateral hydronephrosis (Acute) Bilateral ureteral calculi (Acute) Paroxysmal atrial flutter (Acute) Low blood pressure (Acute) HTN (hypertension) (Acute) Pre-op chest exam (Acute) BPH loc w urin obs/LUTS (Acute) Ureteral calculus, right (Acute) Ureteral stent present (Acute) Bilateral kidney stones (Acute) Aspiration pneumonitis (Acute) ETELVINA (acute kidney injury) (Acute) Cellulitis of face (Acute) Atrial flutter (Acute) Asthma-COPD overlap syndrome (Acute) MARE (obstructive sleep apnea) (Acute) Cardiomyopathy (Acute) SOB (shortness of breath) on exertion (Acute) Chronic restrictive lung disease (Acute) Chronic renal disease (Acute) PVCs (premature ventricular contractions) (Acute) CAD (coronary artery disease) (Acute) Dyspnea (Acute) Chronic allergic rhinitis (Acute) Asthma (Acute) Past Medical History Medical History Pulmonary nodules Chronic restrictive lung disease Chronic renal disease Nonsustained ventricular tachycardia PVCs (premature ventricular contractions) CAD (coronary artery disease) Dyspnea Chronic allergic rhinitis Asthma Sarcoidosis Family History Family History Father Atrial fibrillation Mother Atrial fibrillation Other Asthma Family history of problems with anesthesia: No Surgical History Surgical History H/O hernia repair Stented coronary artery History of Problems with Anesthesia: No Social History Social History Household Members: Spouse Housing: House Do you presently have visiting nurse or other home services: No Alcohol intake: never Patient Tobacco Use Status: Never used Tobacco Tobacco use type: Cigar e-Cigarette/Vaping Use: Never Used Second Hand Smoke Exposure: No Use of substances other than those prescribed or required for medical reasons: No Have you been hit, kicked, punched, or otherwise hurt by someone within the past year? If so, by whom?: No Are you DNR?: No Advance Directives: No Advance Directives Information Provided: Yes Advance Directives Date on File: 09/14/23 Recently lost weight without trying: No Nutrition Risks: No Nutritional Risk Poor oral hygiene: No service: No Meds Allergies Allergy/AdvReac Type Severity Reaction Status Date / Time gadobenic acid [Multihance] Allergy Severe Rash Verified 05/07/24 10:19 azithromycin Allergy Intermediate HIVES Verified 05/07/24 10:19 [From ZITHROMAX Z-JOYCE] Iodinated Contrast Media Allergy Intermediate HIVES Verified 05/07/24 10:19 [IV CONTRAST] Penicillins Allergy Mild RASH Verified 05/07/24 10:19 Home Medications ?Medication ?Instructions ?Recorded ?Confirmed ?Last Taken ?Type allopurinol 100 mg tablet 100 mg PO DAILY 04/21/20 05/07/24 09/14/23 History montelukast 10 mg tablet 10 mg PO DAILY@1200 04/21/20 05/07/24 09/14/23 History finasteride 5 mg tablet 5 mg PO DAILY 06/29/23 05/07/24 09/14/23 History brimonidine 0.1 % eye drops 1 drp ophthalmic (eye) BID 08/21/23 05/07/24 05/07/24 History (Alphagan P) mometasone-formoterol HFA 200 1 puff inhalation BID 09/04/23 05/07/24 05/06/24 History mcg-5 mcg/actuation aerosol inhaler (Dulera) Exam Height,Weight and Vital Signs: Height 5 ft 10 in Weight 94.347 kg Pertinent Lab Results Pertinent Lab Results: Laboratory Tests 03/01/24 08:15 WBC 5.6 Hgb 13.1 L Hct 40.2 L Plt Count 168 Sodium 141 Chloride 109 H Carbon Dioxide 24 BUN 16 Creatinine 1.81 H Narrative Narrative: EKG 04/2024 sinus rhythm with 1 PVC, rate 76, QTC 463 milliseconds Cardiac MRI 04/2023 IMPRESSION: 1. Poor quality exam, severely limited due to arrhythmia/motion artifact. 2. Normal left ventricular size. Mild septal wall thickening likely. There appears to be hypokinesis at the basal septum and inferior wall. LVEF = 35%, but this probably underestimates due to arrhythmia and global dysfunction is favored to be mild. T1 mapping reveals no definite abnormality allowing for artifact, with well-visualized regions in the upper normal range. T2 imaging is nondiagnostic. Post-contrast imaging demonstrates mild late gadolinium enhancement at the subendocardial posterolateral left ventricular wall, but inconsistently seen and likely artifactual. No specific findings of infarct or infiltrative disease. 3. Normal right ventricular size. Probably mild global RV dysfunction allowing for arrhythmia. 4. At least moderate stenosis of the aortic valve, not evident in 2015. Correlation with echocardiography is suggested. 5. Small pericardial effusion. No pericardial thickening or enhancement. ECHO 2022 Conclusions: - 1. Mild to moderate LV systolic dysfunction 2. Left atrial is mildly dilated 3. Mild aortic stenosis 4. Normal RVSP 5. No pericardial effusion. Assessment and Plan Assessment Anesthesia Assessment: Chart Reviewed Final Anesthetic Review Family History of Problems with Anesthesia: No History of Problems with Anesthesia: No Documented by User: Fozia Mcclellan MD 05/07/24 13:22 [facility] Active Problems Active Problems: All Active Problems Preop cardiovascular exam (Acute) Aortic stenosis (Acute) Bilateral hydronephrosis (Acute) Bilateral ureteral calculi (Acute) Paroxysmal atrial flutter (Acute) Low blood pressure (Acute) HTN (hypertension) (Acute) Pre-op chest exam (Acute) BPH loc w urin obs/LUTS (Acute) Ureteral calculus, right (Acute) Ureteral stent present (Acute) Bilateral kidney stones (Acute) Aspiration pneumonitis (Acute) ETELVINA (acute kidney injury) (Acute) Cellulitis of face (Acute) Atrial flutter (Acute) Asthma-COPD overlap syndrome (Acute) MARE (obstructive sleep apnea) (Acute) Cardiomyopathy (Acute)- EF 35%. Denies dizziness, faintness, falls SOB (shortness of breath) on exertion (Acute) Chronic restrictive lung disease (Acute) Chronic renal disease (Acute) PVCs (premature ventricular contractions) (Acute) CAD (coronary artery disease) (Acute)- Denies recent chest pain Dyspnea (Acute) Chronic allergic rhinitis (Acute) Asthma (Acute) Occasional forgetfulness Past Medical History Medical History Pulmonary nodules Chronic restrictive lung disease Chronic renal disease Nonsustained ventricular tachycardia PVCs (premature ventricular contractions) CAD (coronary artery disease) Dyspnea Chronic allergic rhinitis Asthma Sarcoidosis Family History Family History Father Atrial fibrillation Mother Atrial fibrillation Other Asthma Family history of problems with anesthesia: No Surgical History Surgical History H/O hernia repair Stented coronary artery History of Problems with Anesthesia: No Social History Social History Household Members: Spouse Housing: House Do you presently have visiting nurse or other home services: No Alcohol intake: never Patient Tobacco Use Status: Never used Tobacco Tobacco use type: Cigar e-Cigarette/Vaping Use: Never Used Second Hand Smoke Exposure: No Use of substances other than those prescribed or required for medical reasons: No Have you been hit, kicked, punched, or otherwise hurt by someone within the past year? If so, by whom?: No Are you DNR?: No Advance Directives: No Advance Directives Information Provided: Yes Advance Directives Date on File: 09/14/23 Recently lost weight without trying: No Nutrition Risks: No Nutritional Risk Poor oral hygiene: No service: No Meds Allergies Allergy/AdvReac Type Severity Reaction Status Date / Time gadobenic acid [Multihance] Allergy Severe Rash Verified 05/07/24 10:19 azithromycin Allergy Intermediate HIVES Verified 05/07/24 10:19 [From ZITHROMAX Z-JOYCE] Iodinated Contrast Media Allergy Intermediate HIVES Verified 05/07/24 10:19 [IV CONTRAST] Penicillins Allergy Mild RASH Verified 05/07/24 10:19 Home Medications ?Medication ?Instructions ?Recorded ?Confirmed ?Last Taken ?Type allopurinol 100 mg tablet 100 mg PO DAILY 04/21/20 05/07/24 09/14/23 History montelukast 10 mg tablet 10 mg PO DAILY@1200 04/21/20 05/07/24 09/14/23 History finasteride 5 mg tablet 5 mg PO DAILY 06/29/23 05/07/24 09/14/23 History brimonidine 0.1 % eye drops 1 drp ophthalmic (eye) BID 08/21/23 05/07/24 05/07/24 History (Alphagan P) mometasone-formoterol HFA 200 1 puff inhalation BID 09/04/23 05/07/24 05/06/24 History mcg-5 mcg/actuation aerosol inhaler (Dulera) Exam Height,Weight and Vital Signs: Height 5 ft 10 in Weight 94.347 kg Vital Signs Temp Pulse Resp BP Pulse Ox O2 Del Method 05/07/24 10:36 97.8 F 62 14 134/69 97 Room Air Pertinent Lab Results Pertinent Lab Results: Laboratory Tests 03/01/24 08:15 WBC 5.6 Hgb 13.1 L Hct 40.2 L Plt Count 168 Sodium 141 Chloride 109 H Carbon Dioxide 24 BUN 16 Creatinine 1.81 H Airway Mallampati Class: III TM Dist: >3cm Neck ROM: Full Loose/Missing/Broken Teeth: Yes (Missing teeth top right and left back. Cracked tooth top front. Denies loose teeth) Heart: RRR Lungs: CTAB Assessment and Plan Assessment Anesthesia Assessment: Anesthesia Plan Discussed and Chart Reviewed Final Anesthetic Review Family History of Problems with Anesthesia: No History of Problems with Anesthesia: No NPO: Yes ASA Class: IV Final Preanesthetic Review: No Changes in Pt Med Stat, Meds/Allgs Chart Reviewed, Consent Obtained/Reviewed and Anes Risks/Benef Reviewed Patient Risk: High Procedure Risk: Low Assessment/Block/Sedation in SS: Assess/Block/Sedation-SS Anesthetic Plan Anesthetic Plan: GA Disposition: Standard PACU
[2024-05-07] VITALS (7 sets, daily range): BP systolic 93–134; BP diastolic 43–80; PULSE 56–64; RESP 14–16; TEMP 36.1–36.6; O2SAT 97–100
--- NOTE | ~2024-05-07 | FL_ITS ---
EXAMINATION: FL GUIDANCE ONLY HISTORY: cystoscopy, ureteroscopy, retro, laser with stent COMPARISON: Correlation is made with an unenhanced CT of the abdomen and pelvis dated 04/03/2024. TECHNIQUE: Fluoroscopy time: 29.6 seconds. Cumulative Dose: 11.52 mGy. Images: 6. FINDINGS: Images demonstrate placement of bilateral nephroureteral stents. FL/FL guidance in OR IMPRESSION: Fluoroscopy during procedure. Please see procedure report for additional information. Electronically signed by: Jose Cruz Doss MD 05/07/2024 02:42 PM EDT
[2024-05-07] MEDS: Lactated Ringers 1,000 ML 100 ML IVCONT (10:56)
--- NOTE | 2024-05-07 12:03 | W.PM.OPN ---
Operative Note Operative Note Date of Service: 05/07/24 Narrative: PreOperative Diagnosis:?? Bilateral ureteral stones, bilateral hydronephrosis Post Operative Diagnosis:?? Right ureteral stones x3, bilateral hydronephrosis Procedure: - Cystoscopy, bilateral retrograde, bilateral ureteroscopy, left ureteral stent insertion 6 x 22-32 cm; right ureter laser lithotripsy stone x3, ureteral stent insertion, 7 Mexican by 28 cm Modifier bilateral, also modifier extra time for multiple stones right ureter Surgeon:?Dr Kuldip Ibarra Anesthesia:? General Procedure: Brief operative note: The left ureter was evaluated 1st. A retrograde noted some mild dilatation of the ureter. On left ureteroscopy there was no visible distal or proximal ureteral stone. A 6 Mexican by 22-32 cm stent was placed. Attention was taken to the right ureter. On ureteroscopy there was a small distal ureteral stone 2-3 mm and 2 larger stones in the mid ureter and proximal ureter. The stones were lasered to tiny fragments. A 7 Mexican by 28 cm double-J stent was placed without difficulty. A 16 Mexican Logan catheter was placed. The patient tolerated the procedure and was taken to recovery in stable condition. Complications: None Drains: Bilateral Ureteral stents, 16 Mexican Logan as dictated above
--- NOTE | 2024-05-07 12:03 | MHC.SHP ---
Pre-Procedural Eval Section A - 24 Hr Update-Section A only Date of Service: 05/07/24 The patient is an INPATIENT: No The patient has been examined within 24 hours of the surgical procedure. The History & Physical has been completed within 30 days and I have reviewed it.: Yes Section B - Complete if H&P > 30 days Chief Complaint: Calculus of ureter Allergies: Allergies Allergy/AdvReac Type Severity Reaction Status Date / Time gadobenic acid [Multihance] Allergy Severe Rash Verified 05/07/24 10:19 azithromycin Allergy Intermediate HIVES Verified 05/07/24 10:19 [From ZITHROMAX Z-JOYCE] Iodinated Contrast Media Allergy Intermediate HIVES Verified 05/07/24 10:19 [IV CONTRAST] Penicillins Allergy Mild RASH Verified 05/07/24 10:19 Plan Diagnosis/Plan: Unchanged I have reviewed the history and physical and performed a pertinent physical examination on my patient. No changes have occurred unless specified. Plan for Cystoscopy, bilateral ureteroscopy, possible laser lithotripsy, possible ureteral stent. Risks discussed included but not limited to, possible need to repeat procedure if stone is not completely fragmented, Irritative voiding symptoms, bladder spasms, urgency, blood in urine. Time Spent With Patient Time: Total time managing care of this patient today ____ minutes.
[2024-05-13 23:48] LABS: Stone Source KIDNEY STONE
== END 2024-05-07 15:34 | disposition home or self-care (01) ==
PROVIDERS: PCP Internal Medicine; Visit Provider Urology
PROC: (CPT 52356; principal; 2024-05-07 11:10)
DX: N13.2 Hydronephrosis with renal and ureteral calculous obstruction (principal)
CPT/HCPCS: 52356; 52332; 82365; 87086; 87088; 88300; C1726; C1758; C1769; C2617; J0131; J0690; J1580; J2003; J2405; J2704; J3010; Q9967

== ENCOUNTER → 2024-05-07 10:10 | Outpatient (BNV) | payer MEDICARE, OTHER, SELFPAY | PROVIDERS: PCP Internal Medicine; Visit Provider Urology | DX: N13.2 Hydronephrosis with renal and ureteral calculous obstruction (principal) | CPT/HCPCS: 52356; 74420 ==

== ENCOUNTER 2024-05-21 08:55 | Outpatient (AMB) | payer MEDICARE, OTHER, SELFPAY ==
--- NOTE | 2024-05-21 09:36 | A.OFFVIS_ITS ---
Intake Visit Reasons: Stent removal Intake Note: Patient is present for a stent removal Urology Medication:Tamsulosin, Finasteride, Allopurinol Antibiotic Allergy:AZITHROMYCIN Blood Thinner:Eliquis Senior Radiation Protection Technician Required: No Allergies gadobenic acid [Multihance] Allergy (Severe, Verified 06/20/24 13:47) Rash azithromycin [From ZITHROMAX Z-JOYCE] Allergy (Intermediate, Verified 06/20/24 13:47) HIVES Iodinated Contrast Media [IV CONTRAST] Allergy (Intermediate, Verified 06/20/24 13:47) HIVES Penicillins Allergy (Mild, Verified 06/20/24 13:47) RASH HPI Comments Details: 05/21/24--s/p bilateral ureteroscopy/b/L ureteral stents, right ureteral stone lithotripsy. Presents for left ureteral stent removal today. Cystoscopy left ureteral stent removed without difficulty. Plan right ESWL right ureteral stent removal. 04/22/24--Erasmo is here for telehealth follow-up. History of dementia. Discussed with healthcare proxy Herminia results of CT bilateral ureteral st ones with mild hydronephrosis. Discussed bilateral ureteroscopy laser lithotripsy bilateral ureteral stents, patient will need to stop Eliquis. He is on Eliquis for AFib. Will get medical clearance. CTAP-04/03/24--Stones/stone fragments in the right ureter (including 1 within the right ureterovesicular junction) with associated mild hydronephrosis. Nonobstructive left ureterovesicular junction stone. Bilateral nonobstructive renal stones. 02/22/24---Erasmo is followed for kidney stones. Discussed KUB imaging results. Pt asymptomatic will check with CT stone protocol for further evaluation. KUB 02/15/24--1. Bilateral nephrolithiasis. 2. Large calcified stone in the right paraspinal soft tissues at the level of L3 likely within the proximal ureter. 11/16/23--Here for stent removal. s/p --Right ureteroscopy laser lithotripsy 10/31/23 for right ureteral stone. Right ureteral stent removed without difficulty. Erasmo was previously followed by [place] [facility] and is on potassium citrate. Will refer to nephrology for further evaluation. Follow-up in 3 months KUB prior. Urine sent for culture will empirically place on Macrobid. 10/19/23--78-year-old male h/o kidney stones. s/p right stent placed on September 04 for a obstructing ureteral stone. CTAP - right ureteral stent in good position, B/L renal stones, right ureteral stone along stent. discussed plan for Cystoscopy, right ureteroscopy, possible laser lithotripsy, ureteral stent exchange. Risks discussed included but not limited to, possible need to repeat procedure if stone is not completely fragmented, Irritative voiding symptoms, bladder spasms, urgency, blood in urine. PFSH Medical History Pulmonary nodules Chronic restrictive lung disease Chronic renal disease Nonsustained ventricular tachycardia PVCs (premature ventricular contractions) CAD (coronary artery disease) Dyspnea Chronic allergic rhinitis Asthma Sarcoidosis Surgical History H/O hernia repair Stented coronary artery Family History Father Atrial fibrillation Mother Atrial fibrillation Other Asthma Social History Household Members: Spouse Housing: House Do you presently have visiting nurse or other home services: No Alcohol intake: never Patient Tobacco Use Status: Never used Tobacco Tobacco use type: Cigar e-Cigarette/Vaping Use: Never Used Second Hand Smoke Exposure: No Advance Directives Date on File: 09/14/23 service: No Review of Systems Const All systems reviewed & are unremarkable except as noted in HPI and below Reports no additional complaints Eyes Reports no additional complaints ENT Reports no additional complaints Card Reports no additional complaints Resp Reports no additional complaints GI Reports no additional complaints Reports as per HPI Musc Reports no additional complaints Skin/Breast Reports system reviewed and no additional complaints, except as documented Neuro Reports no additional complaints Psych Reports no additional complaints Endo Reports no additional complaints Josias/Lymph Reports no additional complaints Aller/Immun Reports no additional complaints Office Procedures Cystoscopy Consent Discussed risk and benefit or proposed procedure with the patient. Information consent for procedure given to the patient. Discussed technical aspects, risks, benefits and alternatives in full. Addressed all of the patient's questions and concerns regarding the procedure. The patient demonstrated knowledge and understanding. They wish to proceed with this procedure. Preparation The patient was prepped in the usual manner. A burglar alarm installer was present and in the room. Genitalia was prepped with betadine solution in a sterile manner. Lidocaine Jelly 2% was placed into the urethra and 16Fr flexible Olympus cystoscope was inserted into the meatus after adequate lubrication. Time out per protocol performed. The flexible cystoscope is passed transurethrally: Cystoscopy findings: mild edema ureteral orifice which is expected, distal end of ureteral stent visualized. The grasping forceps were used and the stent was removed without difficulty. [id number] with stent removal DISPOSABLE SCOPE URO-G FLEXIBLE SCOPE Procedure code (CPT) selection complete Office Meds lidocaine HCl 2 % mucosal jelly in applicator Performing Provider: Kuldip Ibarra MD Performing Location: [facility] [place] [facility] Administered by: Filemon Earl LPN on 05/21/24 09:51 Dose Route Admin Location Dispensed Lot Number Expiration Date [facility] Oncology Physician 10 mL intra-urethral 20 mL ciprofloxacin HCl 500 mg tablet Performing Provider: Kuldip Ibarra MD Performing Location: [facility] [place] [facility] Administered by: Filemon Earl LPN on 05/21/24 09:51 Dose Route Admin Location Dispensed Lot Number Expiration Date [place] Oncology Physician 500 mg PO 1 tab naproxen 500 mg tablet Performing Provider: Kuldip Ibarra MD Performing Location: [facility] [place] [facility] Administered by: Filemon Earl LPN on 05/21/24 09:51 Dose Route Admin Location Dispensed Lot Number Expiration Date NDC Oncology Physician 500 mg PO 1 tab phenazopyridine 200 mg tablet Performing Provider: Kuldip Ibarra MD Performing Location: [facility] [place] [facility] Administered by: Filemon aErl LPN on 05/21/24 09:51 Dose Route Admin Location Dispensed Lot Number Expiration Date NDC Oncology Physician 200 mg PO 1 tab Results AMB Urinalysis, Automated UA Leukoctes 500 Brooklynn/uL Last Edit by Dianne Leung on 05/21/24 10:43 UA Nitrite Negative Last Edit by Dianne Leung on 05/21/24 10:43 UA Urobilinogen 3.5 mg/dL Last Edit by Dianne Leung on 05/21/24 10:43 UA Protein 0.3 mg/dL Last Edit by Dianne Lueng on 05/21/24 10:43 UA pH 6.0 Last Edit by Dianne Leung on 05/21/24 10:43 UA Blood 200 Sanjiv/uL Last Edit by Dianne Leung on 05/21/24 10:43 UA Specific Clemons 1.010 Last Edit by Dianne Leung on 05/21/24 10:43 UA Ketone Negative Last Edit by Dianne Leung on 05/21/24 10:43 UA Bilirubin 0 mg/dL Last Edit by Dianne Leung on 05/21/24 10:43 UA Glucose 0 mg/dL Last Edit by Dianne Leung on 05/21/24 10:43 Results Reviewed Results Reviewed: Laboratory Last Values Urine pH (Auto) 6.0 05/21/24 10:31 Specific Clemons (Auto) 1.010 05/21/24 10:31 Urine Protein (Auto) 0.3 mg/dL 05/21/24 10:31 Glucose (UA)(Auto) 0 mg/dL 05/21/24 10:31 Urine Ketones (Auto) Negative 05/21/24 10:31 Urine Blood (Auto) 200 Sanjiv/uL 05/21/24 10:31 Urine Nitrite (Auto) Negative 05/21/24 10:31 Urine Bilirubin (Auto) 0 mg/dL 05/21/24 10:31 Urine Urobilinogen (Auto) 3.5 mg/dL 05/21/24 10:31 Leukocyte Esterase (Auto) 500 Brooklynn/uL 05/21/24 10:31 Assessment & Plan Assessment & Plan (1) Bilateral kidney stones: Code(s): N20.0 - Calculus of kidney Category: Medical (2) Bilateral ureteral calculi: Code(s): N20.1 - Calculus of ureter Category: Medical (3) BPH loc w urin obs/LUTS: Code(s): N40.1 - Benign prostatic hyperplasia with lower urinary tract symptoms Category: Medical (4) Bilateral hydronephrosis: Code(s): N13.30 - Unspecified hydronephrosis Category: Medical (5) Chronic renal disease: Code(s): N18.9 - Chronic kidney disease, unspecified Category: Medical Qualifiers: Chronic kidney disease stage: unspecified stage Qualified Code(s): N18.9 - Chronic kidney disease, unspecified Plan Plan right ESWL right ureteral stent removal. Orders: Orders AMB Cystoscopy 03/25/25 N20.1 - Calculus of ureter, Z96.0 - Presence of urogenital implants AMB Urinalysis Automated 05/21/24 Z13.9 - Encounter for screening, unspecified Coding Level of Care Code Procedure Only Diagnoses Bilateral kidney stones N20.0 Bilateral ureteral calculi N20.1 BPH loc w urin obs/LUTS N40.1 Bilateral hydronephrosis N13.30 Chronic kidney disease, unspecified CKD stage N18.9 Chronic kidney disease stage: unspecified stage CPT Codes Cystoscopy - CPT: [id number] with stent removal ([id number])
== END 2024-05-21 10:22 | disposition home or self-care (01) ==
LOC: HO.HUSH 08:55
PROVIDERS: PCP Internal Medicine; Visit Provider Urology
DX: N20.1 Calculus of ureter (principal); Z96.0 Presence of urogenital implants
CPT/HCPCS: 52310

== ENCOUNTER → 2024-05-21 08:55 | Outpatient (BNVA) | payer MEDICARE, OTHER, SELFPAY | PROVIDERS: PCP Internal Medicine; Visit Provider Urology | DX: N20.0 Calculus of kidney (principal); N20.1 Calculus of ureter; N40.1 Benign prostatic hyperplasia with lower urinary tract symptoms; N13.30 Unspecified hydronephrosis; N18.9 Chronic kidney disease, unspecified | CPT/HCPCS: 52310; 81003 ==

== ENCOUNTER 2024-05-31 11:52 | Outpatient (REF) | payer MEDICARE, OTHER, SELFPAY ==
--- NOTE | ~2024-05-31 | XR_ITS ---
EXAMINATION: XR ABDOMEN 1 VIEW (KUB) HISTORY: N13.30 - Unspecified hydronephrosis COMPARISON: Comparison is made with the prior examination dated 02/15/2024. FINDINGS: Two supine views of the abdomen are submitted. The bowel gas pattern is unremarkable, without evidence of mechanical obstruction. A right nephroureteral stent is seen in place. Multiple calcifications are seen overlying both renal shadows. Additional calcifications to the right of the spine at the L3 level are again noted. Many of these calcifications were shown to be within the mesenteric fat on prior CT 04/03/2024. There are no abnormal soft tissue masses. There is degenerative disc disease of the spine. XR/XR KUB IMPRESSION: Right nephroureteral stent in place. Bilateral nephrolithiasis. Electronically signed by: Jose Cruz Doss MD 06/03/2024 10:07 AM EDT
[2024-05-31 13:29] LABS: Anion Gap 9 (12-20); Blood Urea Nitrogen 20 mg/dL (9-16); Calcium 9.2 mg/dL (8.4-10.2); Carbon Dioxide 23 mmol/L (22-29); Chloride 112 mmol/L (96-108); Estimated Glomerular Filt Rate 36; Glucose Random 104 mg/dL (60-115); Sodium 140 mmol/L (135-145)
--- OUTSIDE RECORDS SUMMARY | 2024-05-31 13:55 | XMS_ITS ---
Author Organization Moris Yu MD Address [address] [place], [place] [phone] Care Team Providers Care Lan/Wan Engineer Name Role Phone Moris Yu Primary Care Provider Results Component Value Reference Range Notes Complete Blood Count Auto Di ff Reviewed date:03/01/2024 11:46:39 AM Interpretation: Performing Lab:[facility], [address] [place] [phone] Notes/Report: White Blood Count 5.6 4.8-10.8 X10*3/uL [...] NRBC Abs Auto 0.000 0.0-0.012 X10*3/uL Comprehensive [place]. Panel Fa st Reviewed date:03/01/2024 12:19:08 PM Interpretation: Performing Lab:[facility], [address] [place] [phone] Notes/Report: Sodium 141 135-145 mmol/L Potassium 4.4 [...] Panel Reviewed date:03/01/2024 12:18:48 PM Interpretation: Performing Lab:[facility], [address] [place] [phone] Notes/Report: Triglycerides 76 <150 mg/dL Desirable Triglyceride: [...] (Free>4and<10) Reviewed date:03/01/2024 12:19:16 PM Interpretation: Performing Lab:[address] [phone] Notes/Report: PSA,Total (Free>4and<10) 0.20 0.00-4.00 ng/mL A [...] Reviewed date:03/08/2024 11:48:58 AM Interpretation:BETSY 03/08/24 Performing Lab:[facility], [address] [place] [phone] Notes/Report: Urine, Clean Catch Color Urine Yellow Appearance Urine Hazy PH 6.0 5.0-9.0 Glucose Urine UA Negative Negative mg/dL Urine Blood Large (3+) Negative Specific [place] - Urine 1.020 1.005-1.025 Urine Protein Trace [...] Location Date Provider Diagnosis Moris Yu MD [address] [place] [phone] 03/01/2024 Moris Yu Pure hypercholestero lemia E78.00 [...] Provider Name:Moris Wiggins ier, 09/06/2024 08:00:00 AM, [address] [place] [address], [address], [phone], Provider Name:Moris Wiggins ier, 09/13/2024 02:00:00 PM, [address] [place] [address], [address], [phone], Provider Name:Moris Wiggins ier, 03/06/2025 08:00:00 AM, [address] [place] [address], [phone], Provider Name:Moris Wiggins ier, 03/13/2025 02:30:00 PM, [address] [place] [address], [phone], Progress Notes * Erasmo QUEVEDO BDOB: (79 yo M)Acc No.[id number]:03/01/2024 Progress Note Patient:?Erasmo QUEVEDO Provider:?Moris Yu MD :1945???Age:78 Y???Sex:Male Rakesh e:03/01/2024 Address:[address], [address] [facility] [id number] Subjective: * Chief Complaints: * ???1. Annual labs. * Medical History:? Objective: * Vitals:? Assessment: * Assessment: 1.?Pure hypercholesterolemia - E78.00 (Primary)???2.?Thrombocytopenia - D69.6???3.?Chronic congestive heart failure, unspecified heart failure type - I50.9??? Plan: * Treatment: 2.?Thrombocytopenia?LAB: Complete Blood Count Auto Diff (Collection Date & Time - 03/01/2024 08:15 AM) ?LAB: Comprehensive [place]. Panel Fast (Collection Date & Time - [...] Time - 03/01/2024 08:15 AM) ?LAB: Comprehensive [place]. Panel Fast (Collection Date & Time - 03/01/2024 08:15 AM) ?LAB: Lipid Panel (Collection Date & Time - 03/01/2024 08:15 AM) ?LAB: PSA,Total (Free>4and<10) (Collection Date & Time - 03/01/2024 08:15 AM) ?LAB: UA ClnCatch+Micro w/rflx Cult (Collection Date & Time - 03/01/2024 08:15 AM) * Procedure Codes:?72558 VENIP UNCT, ROUTINE* * * The named appointment provid er may or may not be the originator of this progress note, and it is not deemed complete until electronically signed by the appointment provider. Sign off status: Pending * Provider:?Moris Yu MD Date:?0 03/01/2024 Generated for Marie vázquez/Jacob/Tuckeritting on:?05/31/2024 01:55 PM EDT
--- OUTSIDE RECORDS SUMMARY | 2024-05-31 13:55 | XMS_ITS ---
Author Organization Moris Yu MD Address [address] [place] [phone] Care Team Providers Care Trouble Locater Name Role Phone Moris Yu Primary Care Provider [phone] REASON FOR VISIT UGI orders Encounters Encounter Location Date Provider Diagnosis Moris Yu MD [address] [place] [address] [place] [phone] 04/05/2024 Moris Yu Abnormal computed tomography of abdomen and pelvis R93.5 Assessments Encounter Date Diagnosis (ICD Code) Assessment Notes Treatment Notes Treatment Clinical Notes Section Notes 04/05/2024 Abnormal computed tomography of abdomen and pelvis (ICD-10 - R93.5) Plan Of Treatment Pending Test Test Name Order Date XR GI SERIES 04/05/2024 Next Appt Details Provider Name:Moris delgadillo, 09/06/2024 08:00:00 AM, [address] [place] [address], [address], [phone], Provider Name:Moris delgadillo, 09/13/2024 02:00:00 PM, [address] [place] [address], [address], [phone], Provider Name:Moris delgadillo, 03/06/2025 08:00:00 AM, [address] [place] [address], [address], [phone], Provider Name:Moris delgadlilo, 03/13/2025 02:30:00 PM, [address] [place] [address], [address], [phone], Progress Notes * Erasmo QUEVEDOOB: 6 (78 yo M)Acc No.[id number]:04/05/2024 Patient:?Erasmo QUEVEDO :1945???Age:78 Y???Sex:Male Address:[address] [address] Subjective: * Chief Complaints: * ???UGI orders * Medical History:? * Surgical History:? * Hospitalization/Major Diagno stic Procedure:? * Medications:? Objective: * Vitals:? * Physical Examination:? Assessment: * Assessment: 1.?Abnormal computed tomogra phy of abdomen and pelvis - R93.5??? Plan: * Treatment: * Procedure Codes:? * true * Date:? Generated for Marie vázquez/Jacob/eTransmitting on:?05/31/2024 01:55 PM EDT
--- OUTSIDE RECORDS SUMMARY | 2024-05-31 13:56 | XMS_ITS | Clinical Summary ---
Author Organization [employer] [facility] it Address [address] [place] [address] Care Team Providers Care Radiology Ct Technologist Name Role Phone Moris Yu MD Primary [...] TOTAL HIP; Surgeon: Ron Sanchez MD; Location: [facility] ([facility]); Service: Orthopedics; Laterality: [...] s Sarcoidosis, lung (CMS/HCC) DX:S arcoidosis, lung ([facility]) PVC (premature ventricular contraction) DX:PVC (premature ventricular [...] 2 - PCV) 11/24/2017 11/24/2016 RSV Immunization Adult Patie nts (1 - 1-dose 75+ series) 2020 Cholesterol [...] this topic Medical Devices Implanted Type Area Calender Supervisor Device Identifier Shelf Expiration Date Model / Serial / Lot Shell Trident Ii F 58mm 5 Screw Hole Cluster Tritanium - [id number] Implanted:Qty: 1 on 08/29/2019 by Ron Sanchez MD Right: Hip [employer] [id number] 12/24/2023 702-04-58F / / [id number] Screw Trident Ii 30mm 6.5mm Low Profile Hexagonal Bone - [id number] Implanted:Qty: 1 on 08/29/2019 by Ron Sanchez MD Right: Hip [employer] [id number] 01/08/2024 8933-1323 / / 33TH Insert Trident 10d F 36mm X3 Acetabular Hip - [id number] Implanted:Qty: 1 on 08/29/2019 by Ron Sanchez MD Right: Hip [employer] [id number] 01/14/2024 623-10-36F / / [id number] Screw Trident Ii 30mm 6.5mm Low Profile Hexagonal Bone - [id number] Implanted:Qty: 1 on 08/29/2019 by Ron Sanchez MD Right: Hip [employer] [id number] 12/10/2023 9302-8229 / / 3HYD Stem Hip Neck Angle 127 Degree Accolade Ii Sz6 - [id number] Implanted:Qty: 1 on 08/29/2019 by Ron Sanchez MD Right: Hip [employer] [id number] 10/04/2022 1737-8256 / / [id number] Head V40 -5mm 36mm Delta Femoral Hip - [id number] Implanted:Qty: 1 on 08/29/2019 by Ron Sanchez MD Right: Hip [employer] [id number] 07/31/2024 6570-0-036 / / [id number] Care Teams Radiology Ct Technologist Relationship Specialty Start Date End Date Moris Yu MD PCP - General Internal Medicine 01/24/17
--- OUTSIDE RECORDS SUMMARY | 2024-05-31 13:56 | XMS_ITS | Clinical Summary ---
Author Organization [facility] Address [address] [place] [address] Phone Care Team Providers Care Sewing Machinist Name Role Phone Moris Yu MD Primary [...] age to complete this topic Insurance MEDICARE [facility] MEDICARE [facility] Care Teams Sewing Machinist Relationship Specialty Start Date End Date Moris Yu MD [address] [place] [address] PCP - General Internal Medicine 08/14/20
--- OUTSIDE RECORDS SUMMARY | 2024-05-31 13:56 | XMS_ITS ---
Author Organization Moris Yu MD Address [address] [place] [phone] Care Team Providers Care Qc Analyst Name Role Phone Moris Yu Primary Care Provider [phone] Allergies Allergen (clinical drug ingredient) Drug/Non Drug Allergy documented on EMR Reaction Allergy Type Onset Date Status Gadavist hives Drug Allergy Active azithromycin Zithromax Z-Jhonny severe diarrhea Drug Allergy Active penicillin G Penicillin G Potassium rash Drug Allergy Active Doxycycline Calcium hives Drug Allergy Active Gadolinium and/or gadolinium compound (FN) gadalinium (uncoded) hives Allergy Active REASON FOR VISIT CBACK URINE, [...] Location Date Provider Diagnosis Moris Yu MD [address] [place] [address] [place] [phone] 03/08/2024 Moris Yu Gross hematuria R31. 0 [...] 08:00:00 AM, [address], [address], [place], [place], [phone], Provider Name:Moris San Bradyeunice ier, 09/13/2024 02:00:00 PM, [address], [address], [place], [place], [phone], Provider Name:Moris eastmanr, 03/06/2025 08:00:00 AM, [address], [address], [place], [phone], Provider Name:Moris Mena Feliciano eastmanr, 03/13/2025 02:30:00 PM, [address], [address], [place], [phone], Progress Notes * Erasmo QUEVEDO BDOB: (78 yo M)Acc No.[id number]:03/08/2024 Patient:?Erasmo Quevedo B Provider:?Moris Yu MD :1945???Age:78 Y???Sex:Male Rakesh e:03/08/2024 Address:[address]-[address] Subjective: * Chief Complaints: * ???CBACK [...] Pets: none. no Travel outside of the [place]. * Medications:?TakingMultaq 40 0 MG Tablet [...] Auto 0.000 0.0-0. 012 - X10*3/uL ???Lab:Comprehensive [place]. P iris Fast (Order Date - 03/01/2024) [...] Blood Large (3+) A Negative - ?Specific [place] - Urine 1.020 1.005-1.025 - ?Urine Protein [...] MD Date:?0 03/08/2024 Generated for Marie vázquez/Jacob/Komal on:?05/31/2024 01:55 PM EDT History and Physical Notes * HPI (History [...]
--- OUTSIDE RECORDS SUMMARY | 2024-05-31 13:56 | XMS_ITS | Clinical Summary ---
Author Organization [facility] Address [address] [place] [address] Care Team Providers Care Primary Care Provider Name Role Phone Moris Yu MD Primary Care Provider [phone] Allergies Active Allergy Reactions Criticality Noted Date [...] mg by nebulization daily. 0 Active Tiotropium [place] Monohydrate (SPIRIVA RESPIMAT) 2.5 MCG/ACT AERS Inhale [...] this topic Medical Devices Implanted Type Area Maintenance Apprentice Device Identifier Shelf Expiration Date Model / Serial / Lot Shell Trident Ii F 58mm 5 Screw Hole Cluster Tritanium - [id number] - [id number] Implanted:Qty: 1 on 08/29/2019 by Ron Sanchez MD at [facility] [place] [place] [facility] Right: Hip [employer] [id number] 12/24/2023 702-04-58F / / [id number] Screw Trident Ii 30mm 6.5mm Low Profile Hexagonal Bone - 574910 - [id number] Implanted:Qty: 1 on 08/29/2019 by Ron Sanchez MD at [facility] [place] [place] [facility] Right: Hip [employer] [id number] 01/08/2024 7282-2089 / / 33TH Insert Trident 10d F 36mm X3 Acetabular Hip - 004341 - [id number] Implanted:Qty: 1 on 08/29/2019 by Ron Sanchez MD at [facility] [place] [place] [facility] Right: Hip [employer] [id number] 01/14/2024 623-10-36F / / [id number] Screw Trident Ii 30mm 6.5mm Low Profile Hexagonal Bone - 854638 - [id number] Implanted:Qty: 1 on 08/29/2019 by Ron Sanchez MD at [facility] [place] [place] [facility] Right: Hip [employer] [id number] 12/10/2023 4832-8300 / / 3HYD Stem Hip Neck Angle 127 Degree Accolade Ii Sz6 - 955554 - [id number] Implanted:Qty: 1 on 08/29/2019 by Ron Sanchez MD at [facility] [place] [place] [facility] Right: Hip [employer] [id number] 10/04/2022 4678-9794 / / [id number] Head V40 -5mm 36mm Delta Femoral Hip - 504315 - [id number] Implanted:Qty: 1 on 08/29/2019 by Ron Sanchez MD at [facility] [place] [place] [facility] Right: Hip [employer] [id number] 07/31/2024 6570-0-036 / / [id number] Advance Directives For more information, please contact: [phone] Latest Code Status on File Code Status [...] way: discussion with patient . Care Teams Primary Care Provider Relationship Specialty Start Date End Date Moris Yu MD [address] [place] [address] PCP - General Internal Medicine 06/26/19
== END 2024-05-31 11:53 | disposition home or self-care (01) ==
LOC: HO.XRAY 11:52
PROVIDERS: Absent Provider Urology; PCP Internal Medicine; Visit Provider Internal Medicine Hypertension Specialist
DX: N20.0 Calculus of kidney (principal); N20.1 Calculus of ureter; N13.30 Unspecified hydronephrosis
CPT/HCPCS: 36415; 74018; 80048

== ENCOUNTER → 2024-05-31 12:17 | Outpatient (BNV) | payer MEDICARE, OTHER, SELFPAY | PROVIDERS: Absent Provider Urology; PCP Internal Medicine; Visit Provider Radiology Diagnostic Radiology | DX: N20.0 Calculus of kidney (principal); Z96.0 Presence of urogenital implants | CPT/HCPCS: 74018 ==

== ENCOUNTER 2024-06-03 07:43 | Outpatient (REF) | payer MEDICARE, OTHER, SELFPAY ==
--- NOTE | ~2024-06-03 | FL_ITS ---
EXAMINATION: XR FLUOROSCOPY UPPER GI WITH AIR CLINICAL INFORMATION: Thickened focal posterior wall thickening of the gastric fundus. COMPARISON: CT abdomen and pelvis 04/04/2024. TECHNIQUE: Routine upper GI air contrast study was performed. FINDINGS: Following oral administration of thick barium and effervescent granules is normal bolus from the oral cavity through the pharynx, esophagus into stomach without any obstruction, narrowing or stricture. There is mild pooling of barium in in piriform sinuses and valleculae which clears with subsequent dry swallowing. There is no extrinsic compression. On placing patient in supine and prone lying position the course, caliber and peristalsis of the stomach, duodenal bulb and sweep is normal. There is moderate gastroesophageal reflux with small sliding hiatal hernia.. Incidental note is made of a right internal ureteral stent. There are multiple bilateral parahilar small calcifications and/or calcified nodules. Likely scarring in both upper and lower lobes. FLUOROSCOPY TIME: 2 minutes 15 seconds DOSE AREA PRODUCT: 2334 uGy-m2 (microgray-meter squared) FL/FL upper GI w air IMPRESSION: Small sliding hiatal hernia with moderate gastroesophageal reflux. Electronically signed by: Gilmer Munoz MD 06/03/2024 11:33 AM EDT
--- OUTSIDE RECORDS SUMMARY | 2024-06-03 07:46 | XMS_ITS ---
Author Organization Moris Yu MD Address [address] [place] [phone] Care Team Providers Care Professional Application Designer Name Role Phone Moris Yu Primary Care Provider Allergies Allergen (clinical drug ingredient) Drug/Non Drug [...] Location Date Provider Diagnosis Moris Yu MD [address] [place] [address] [place] [phone] 03/08/2024 Moris Yu Gross hematuria R31. 0 [...] 08:00:00 AM, [address], [address], [place], [place], [phone], Provider Name:Moris San Bradyeunice ier, 09/13/2024 02:00:00 PM, [address], [address], [place], [place], [phone], Provider Name:Moris eastmanr, 03/06/2025 08:00:00 AM, [address], [address], [place], [phone], Provider Name:Moris Mena Feliciano eastmanr, 03/13/2025 02:30:00 PM, [address], [address], [place], [phone], Progress Notes * Erasmo QUEVEDO BDOB: (78 yo M)Acc No.[id number]:03/08/2024 Patient:?Erasmo Quevedo B Provider:?Moris Yu MD :1945???Age:78 Y???Sex:Male Rakesh e:03/08/2024 Address:[address]-[address] Subjective: * Chief Complaints: * ???CBACK [...] Pets: none. no Travel outside of the [place]. * Medications:?TakingMultaq 40 0 MG Tablet [...] Auto 0.000 0.0-0. 012 - X10*3/uL ???Lab:Comprehensive [place]. P iris Fast (Order Date - 03/01/2024) [...] Blood Large (3+) A Negative - ?Specific [place] - Urine 1.020 1.005-1.025 - ?Urine Protein [...] MD Date:?0 03/08/2024 Generated for Marie vázquez/Jacob/Komal on:?06/03/2024 07:46 AM EDT History and Physical Notes * HPI [...]
--- OUTSIDE RECORDS SUMMARY | 2024-06-03 07:46 | XMS_ITS ---
Author Organization Moris Yu MD Address [address] [place], [place] [phone] Care Team Providers Care Project Development Leader Name Role Phone Moris Yu Primary Care Provider [phone] Results Component Value Reference Range Notes Complete Blood Count Auto Di ff Reviewed date:03/01/2024 11:46:39 AM Interpretation: Performing Lab:[facility], [address] [place] [phone] Notes/Report: White Blood Count 5.6 4.8-10.8 X10*3/uL [...] NRBC Abs Auto 0.000 0.0-0.012 X10*3/uL Comprehensive [place]. Panel Fa st Reviewed date:03/01/2024 12:19:08 PM Interpretation: Performing Lab:[facility], [address] [place] [phone] Notes/Report: Sodium 141 135-145 mmol/L Potassium 4.4 [...] Panel Reviewed date:03/01/2024 12:18:48 PM Interpretation: Performing Lab:[facility], [address] [place] [phone] Notes/Report: Triglycerides 76 <150 mg/dL Desirable Triglyceride: [...] (Free>4and<10) Reviewed date:03/01/2024 12:19:16 PM Interpretation: Performing Lab:[address] [phone] Notes/Report: PSA,Total (Free>4and<10) 0.20 0.00-4.00 ng/mL A [...] Reviewed date:03/08/2024 11:48:58 AM Interpretation:BETSY 03/08/24 Performing Lab:[facility], [address] [place] [phone] Notes/Report: Urine, Clean Catch Color Urine Yellow Appearance Urine Hazy PH 6.0 5.0-9.0 Glucose Urine UA Negative Negative mg/dL Urine Blood Large (3+) Negative Specific [place] - Urine 1.020 1.005-1.025 Urine Protein Trace [...] Location Date Provider Diagnosis Moris Yu MD [address] [place] [phone] 03/01/2024 Moris Yu Pure hypercholestero lemia E78.00 [...] Provider Name:Moris Wiggins ier, 09/06/2024 08:00:00 AM, [address] [place] [address], [address], [phone], Provider Name:Moris Wiggins ier, 09/13/2024 02:00:00 PM, [address] [place] [address], [address], [phone], Provider Name:Moris Wiggins ier, 03/06/2025 08:00:00 AM, [address] [place] [address], [phone], Provider Name:Moris Wiggins ier, 03/13/2025 02:30:00 PM, [address] [place] [address], [phone], Progress Notes * Erasmo QUEVEDO BDOB: (79 yo M)Acc No.[id number]:03/01/2024 Progress Note Patient:?Erasmo QUEVEDO Provider:?Moris Yu MD :1945???Age:78 Y???Sex:Male Rakesh e:03/01/2024 Address:[address], [address] [facility] [id number] Subjective: * Chief Complaints: * ???1. Annual labs. * Medical History:? Objective: * Vitals:? Assessment: * Assessment: 1.?Pure hypercholesterolemia - E78.00 (Primary)???2.?Thrombocytopenia - D69.6???3.?Chronic congestive heart failure, unspecified heart failure type - I50.9??? Plan: * Treatment: 2.?Thrombocytopenia?LAB: Complete Blood Count Auto Diff (Collection Date & Time - 03/01/2024 08:15 AM) ?LAB: Comprehensive [place]. Panel Fast (Collection Date & Time - [...] Time - 03/01/2024 08:15 AM) ?LAB: Comprehensive [place]. Panel Fast (Collection Date & Time - 03/01/2024 08:15 AM) ?LAB: Lipid Panel (Collection Date & Time - 03/01/2024 08:15 AM) ?LAB: PSA,Total (Free>4and<10) (Collection Date & Time - 03/01/2024 08:15 AM) ?LAB: UA ClnCatch+Micro w/rflx Cult (Collection Date & Time - 03/01/2024 08:15 AM) * Procedure Codes:?53488 VENIP UNCT, ROUTINE* * * The named appointment provid er may or may not be the originator of this progress note, and it is not deemed complete until electronically signed by the appointment provider. Sign off status: Pending * Provider:?Moris Yu MD Date:?0 03/01/2024 Generated for Marie vázquez/Jacob/Tuckeritting on:?06/03/2024 07:46 AM EDT
--- OUTSIDE RECORDS SUMMARY | 2024-06-03 07:46 | XMS_ITS | Clinical Summary ---
Author Organization [facility] Address [address] [place] [address] Care Team Providers Care Learning Solutions Specialist Name Role Phone Moris Yu MD Primary Care Provider [phone] Allergies Active Allergy Reactions Criticality Noted Date [...] mg by nebulization daily. 0 Active Tiotropium [place] Monohydrate (SPIRIVA RESPIMAT) 2.5 MCG/ACT AERS Inhale [...] this topic Medical Devices Implanted Type Area Talent Acquisition Lead Device Identifier Shelf Expiration Date Model / Serial / Lot Shell Trident Ii F 58mm 5 Screw Hole Cluster Tritanium - [id number] - [id number] Implanted:Qty: 1 on 08/29/2019 by Ron Sanchez MD at [facility] Right: Hip [employer] [id number] 12/24/2023 702-04-58F / / [id number] Screw Trident Ii 30mm 6.5mm Low Profile Hexagonal Bone - 399852 - [id number] Implanted:Qty: 1 on 08/29/2019 by Ron Sanchez MD at [facility] Right: Hip [employer] [id number] 01/08/2024 3374-7598 / / 33TH Insert Trident 10d F 36mm X3 Acetabular Hip - 666402 - [id number] Implanted:Qty: 1 on 08/29/2019 by Ron Sanchez MD at [facility] Right: Hip [employer] [id number] 01/14/2024 623-10-36F / / [id number] Screw Trident Ii 30mm 6.5mm Low Profile Hexagonal Bone - 408449 - [id number] Implanted:Qty: 1 on 08/29/2019 by Ron Sanchez MD at [facility] Right: Hip [employer] [id number] 12/10/2023 7423-3097 / / [id number] Stem Hip Neck Angle 127 Degree Accolade Ii Sz6 - 251501 - [id number] Implanted:Qty: 1 on 08/29/2019 by Ron Sanchez MD at [facility] Right: Hip [employer] [id number] 10/04/2022 9715-5732 / / [id number] Head V40 -5mm 36mm Delta Femoral Hip - 124682 - [id number] Implanted:Qty: 1 on 08/29/2019 by Ron Sanchez MD at [facility] Right: Hip [employer] [id number] 07/31/2024 6570-0-036 / / [id number] Advance Directives For more information, please contact: [phone] Latest Code Status on File Code Status [...] way: discussion with patient . Care Teams Learning Solutions Specialist Relationship Specialty Start Date End Date Moris Yu MD [address] [place] [address] PCP - General Internal Medicine 06/26/19
--- OUTSIDE RECORDS SUMMARY | 2024-06-03 07:46 | XMS_ITS ---
Author Organization Moris Yu MD Address [address] [place] [phone] Care Team Providers Care Performance Management Consultant Name Role Phone Moris Yu Primary Care Provider REASON FOR VISIT UGI orders Encounters Encounter Location Date Provider Diagnosis Moris Yu MD [address] [place] [address] [place] [phone] 04/05/2024 Moris Yu Abnormal computed tomography of abdomen and pelvis R93.5 Assessments Encounter Date Diagnosis (ICD Code) Assessment Notes Treatment Notes Treatment Clinical Notes Section Notes 04/05/2024 Abnormal computed tomography of abdomen and pelvis (ICD-10 - R93.5) Plan Of Treatment Pending Test Test Name Order Date XR GI SERIES 04/05/2024 Next Appt Details Provider Name:Moris delgadillo, 09/06/2024 08:00:00 AM, [address] [place] [address], [address], [phone], Provider Name:Moris delgadillo, 09/13/2024 02:00:00 PM, [address] [place] [address], [address], [phone], Provider Name:Moris delgadillo, 03/06/2025 08:00:00 AM, [address] [place] [address], [address], [phone], Provider Name:Moris delgadillo, 03/13/2025 02:30:00 PM, [address] [place] [address], [address], [phone], Progress Notes * Erasmo QUEVEDOOB: 6 (78 yo M)Acc No.[id number]:04/05/2024 Patient:?Erasmo QUEVEDO :1945???Age:78 Y???Sex:Male Address:[address] [address] Subjective: * Chief Complaints: * ???UGI orders * Medical History:? * Surgical History:? * Hospitalization/Major Diagno stic Procedure:? * Medications:? Objective: * Vitals:? * Physical Examination:? Assessment: * Assessment: 1.?Abnormal computed tomogra phy of abdomen and pelvis - R93.5??? Plan: * Treatment: * Procedure Codes:? * true * Date:? Generated for Marie vázquez/Jacob/eTransmitting on:?06/03/2024 07:45 AM EDT
--- OUTSIDE RECORDS SUMMARY | 2024-06-03 07:46 | XMS_ITS | Clinical Summary ---
Author Organization [facility] Address [address] [place] [address] Phone Care Team Providers Care Manager General Name Role Phone Moris Yu MD Primary [...] age to complete this topic Insurance MEDICARE [employer] MEDICARE [employer] Care Teams Manager General Relationship Specialty Start Date End Date Moris Yu MD [address] [place] [address] PCP - General Internal Medicine 08/14/20
--- OUTSIDE RECORDS SUMMARY | 2024-06-03 07:46 | XMS_ITS | Clinical Summary ---
Author Organization [employer] [facility] it Address [address] [place] [address] Care Team Providers Care Stock Preparation Operator Name Role Phone Moris Yu MD Primary Care Provider [phone] Surgical History Surgery Date Site/Laterality Comments HERNIA [...] TOTAL HIP; Surgeon: Ron Sanchez MD; Location: [facility] Service: Orthopedics; Laterality: [...] s Sarcoidosis, lung (CMS/HCC) DX:S arcoidosis, lung ([facility]) PVC (premature ventricular contraction) DX:PVC (premature [...] this topic Medical Devices Implanted Type Area Associate Creative Director Device Identifier Shelf Expiration Date Model / Serial / Lot Shell Trident Ii F 58mm 5 Screw Hole Cluster Tritanium - [id number] Implanted:Qty: 1 on 08/29/2019 by Ron Sanchez MD Right: Hip [employer] [id number] 12/24/2023 702-04-58F / / [id number] Screw Trident Ii 30mm 6.5mm Low Profile Hexagonal Bone - [id number] Implanted:Qty: 1 on 08/29/2019 by Ron Sanchez MD Right: Hip [employer] [id number] 01/08/2024 3379-0346 / / 33TH Insert Trident 10d F 36mm X3 Acetabular Hip - [id number] Implanted:Qty: 1 on 08/29/2019 by Ron Sanchez MD Right: Hip [employer] [id number] 01/14/2024 623-10-36F / / [id number] Screw Trident Ii 30mm 6.5mm Low Profile Hexagonal Bone - [id number] Implanted:Qty: 1 on 08/29/2019 by Ron Sanchez MD Right: Hip [employer] [id number] 12/10/2023 3802-2582 / / [id number] Stem Hip Neck Angle 127 Degree Accolade Ii Sz6 - [id number] Implanted:Qty: 1 on 08/29/2019 by Ron Sanchez MD Right: Hip [employer] [id number] 10/04/2022 7967-0706 / / [id number] Head V40 -5mm 36mm Delta Femoral Hip - [id number] Implanted:Qty: 1 on 08/29/2019 by Ron Sanchez MD Right: Hip [employer] [id number] 07/31/2024 6570-0-036 / / [id number] Care Teams Stock Preparation Operator Relationship Specialty Start Date End Date Moris Yu MD PCP - General Internal Medicine 01/24/17
== END 2024-06-03 07:44 | disposition home or self-care (01) ==
LOC: HO.XRAY 07:43
PROVIDERS: PCP Internal Medicine; Visit Provider Internal Medicine
DX: R93.5 Abnormal findings on diagnostic imaging of other abdominal regions, including retroperitoneum (principal)
CPT/HCPCS: 74246

== ENCOUNTER → 2024-06-03 07:45 | Outpatient (BNV) | payer MEDICARE, OTHER, SELFPAY | PROVIDERS: PCP Internal Medicine; Visit Provider Radiology Diagnostic Radiology | DX: K44.9 Diaphragmatic hernia without obstruction or gangrene (principal); K21.9 Gastro-esophageal reflux disease without esophagitis | CPT/HCPCS: 74246 ==

== ENCOUNTER 2024-06-10 09:38 | Outpatient (AMB) | payer MEDICARE, OTHER, SELFPAY ==
--- NOTE | 2024-06-10 09:40 | MHC.OFFVIS ---
Intake Visit Reasons: 3w/KUB Intake Note: Patient is present via telehealth for a 3 week follow up/KUB Urology Medication:Tamsulosin, Finasteride, Allopurinol Antibiotic Allergy:AZITHROMYCIN Blood Thinner:Eliquis Finish Filer Required: No Allergies gadobenic acid [Multihance] Allergy (Severe, Verified 06/20/24 13:47) Rash azithromycin [From ZITHROMAX Z-JOYCE] Allergy (Intermediate, Verified 06/20/24 13:47) HIVES Iodinated Contrast Media [IV CONTRAST] Allergy (Intermediate, Verified 06/20/24 13:47) HIVES Penicillins Allergy (Mild, Verified 06/20/24 13:47) RASH Medication List - Last Reconciled 06/10/24 by Kuldip Ibarra MD allopurinol 100 mg PO DAILY apixaban (Eliquis) 5 mg PO BID atorvastatin 80 mg PO DAILY brimonidine 0.1% (Alphagan P) 1 drp ophthalmic (eye) BID cephalexin 250 mg PO BID 3 days dronedarone (Multaq) 400 mg PO Q12H 90 days finasteride 5 mg PO DAILY 90 days finasteride 5 mg PO DAILY fluconazole 150 mg PO DAILY 3 days mometasone-formoterol 200-5 mcg/actuation (Dulera) 1 puff inhalation BID montelukast 10 mg PO DAILY@1200 oxycodone-acetaminophen 2.5-325 mg (Percocet) 1 tab PO .q6-q8h PRN potassium citrate ER 10 mEq PO BID 90 days tamsulosin 0.4 mg PO BEDTIME tiotropium bromide 2.5 mcg/actuation (Spiriva Respimat) 2 inhalations inhalation DAILY HPI Comments Details: 06/10/24-- History of Present Illness The patient is a 79-year-old male presenting with nephrolithiasis. He has kidney stones in both kidneys and currently has a stent in place for management. Recent imaging revealed kidney stones without calcifications on the stent. The patient's treatment history includes stent placement. The focus is on resolving the stones in the right kidney to prevent movement and obstruction within the urinary tract. Plan-We plan to remove the stent and perform right shock wave therapy for kidney stones. Results - X-ray-KUB-05/31/24--Right nephroureteral stent in place. Bilateral nephrolithiasis. absence of calcifications along the stent visualized. 05/21/24--s/p bilateral ureteroscopy/b/L ureteral stents, right ureteral stone lithotripsy. Presents for left ureteral stent removal today. Cystoscopy left ureteral stent removed without difficulty. Plan right ESWL right ureteral stent removal. 04/22/24--Erasmo is here for telehealth follow-up. History of dementia. Discussed with healthcare proxy Herminia results of CT bilateral ureteral stones with mild hydronephrosis. Discussed bilateral ureteroscopy laser lithotripsy bilateral ureteral stents, patient will need to stop Eliquis. He is on Eliquis for AFib. Will get medical clearance. CTAP-04/03/24--Stones/stone fragments in the right ureter (including 1 within the right ureterovesicular junction) with associated mild hydronephrosis. Nonobstructive left ureterovesicular junction stone. Bilateral nonobstructive renal stones. 02/22/24---Erasmo is followed for kidney stones. Discussed KUB imaging results. Pt asymptomatic will check with CT stone protocol for further evaluation. KUB 02/15/24--1. Bilateral nephrolithiasis. 2. Large calcified stone in the right paraspinal soft tissues at the level of L3 likely within the proximal ureter. 11/16/23--Here for stent removal. s/p --Right ureteroscopy laser lithotripsy 10/31/23 for right ureteral stone. Right ureteral stent removed without difficulty. Erasmo was previously followed by [facility] and is on potassium citrate. Will refer to nephrology for further evaluation. Follow-up in 3 months KUB prior. Urine sent for culture will empirically place on Macrobid. 10/19/23--78-year-old male h/o kidney stones. s/p right stent placed on September 04 for a obstructing ureteral stone. CTAP - right ureteral stent in good position, B/L renal stones, right ureteral stone along stent. discussed plan for Cystoscopy, right ureteroscopy, possible laser lithotripsy, ureteral stent exchange. Risks discussed included but not limited to, possible need to repeat procedure if stone is not completely fragmented, Irritative voiding symptoms, bladder spasms, urgency, blood in urine. [facility] Medical History Pulmonary nodules Chronic restrictive lung disease Chronic renal disease Nonsustained ventricular tachycardia PVCs (premature ventricular contractions) CAD (coronary artery disease) Dyspnea Chronic allergic rhinitis Asthma Sarcoidosis Surgical History H/O hernia repair Stented coronary artery Family History Father Atrial fibrillation Mother Atrial fibrillation Other Asthma Social History Household Members: Spouse Housing: House Do you presently have visiting nurse or other home services: No Alcohol intake: never Patient Tobacco Use Status: Never used Tobacco Tobacco use type: Cigar e-Cigarette/Vaping Use: Never Used Second Hand Smoke Exposure: No Advance Directives: No Advance Directives Information Provided: Yes Advance Directives Date on File: 09/14/23 service: No Review of Systems Const All systems reviewed & are unremarkable except as noted in HPI and below Reports no additional complaints Eyes Reports no additional complaints ENT Reports no additional complaints Card Reports no additional complaints Resp Reports no additional complaints GI Reports no additional complaints Reports as per HPI Musc Reports no additional complaints Skin/Breast Reports system reviewed and no additional complaints, except as documented Neuro Reports no additional complaints Psych Reports no additional complaints Endo Reports no additional complaints Josias/Lymph Reports no additional complaints Aller/Immun Reports no additional complaints Telehealth Telehealth Telehealth Platform: Telephone Location of provider rendering services: practice address Location of patient: address on file Patient Identification confirmed using: Name, : Yes Telehealth method: voice only Patient verbally consented to treatment: Yes Patient verbally consented to billing insurance company: Yes Patient informed of any privacy concerns related to visit: Yes Minutes spent on Phone/Video with Pt.: 14 Results Reviewed Results Reviewed: Date of Service: 05/31/24 EXAMINATION: XR ABDOMEN 1 VIEW (KUB) HISTORY: N13.30 - Unspecified hydronephrosis COMPARISON: Comparison is made with the prior examination dated 02/15/2024. FINDINGS: Two supine views of the abdomen are submitted. The bowel gas pattern is unremarkable, without evidence of mechanical obstruction. A right nephroureteral stent is seen in place. Multiple calcifications are seen overlying both renal shadows. Additional calcifications to the right of the spine at the L3 level are again noted. Many of these calcifications were shown to be within the mesenteric fat on prior CT 04/03/2024. There are no abnormal soft tissue masses. There is degenerative disc disease of the spine. IMPRESSION: Right nephroureteral stent in place. Bilateral nephrolithiasis. Date of Service: 04/03/24 CLINICAL HISTORY: N20.1 - Calculus of ureter CT abdomen and pelvis without contrast Comparison: None Findings: Small bilateral calcified lung granulomas. Mild bibasilar lung atelectasis. Coronary artery calcifications. A few left renal cysts as well as too small to characterize bilateral renal hypodensities. Bilateral diffusely scattered nonobstructive renal stones measuring up to 9 mm. Right: 15 mm stone in the ureteropelvic junction associated with mild upstream hydronephrosis. Additional 1 or 2 neighboring stone/stones (with an overall measurement of 9 mm) in the mid ureter and 2 mm stone in the ureterovesicular junction. 4 mm stone in the left ureterovesicular junction without associated hydronephrosis/hydroureter. Focal thickening (up to 26 mm) of the posterior wall of the nondistended gastric fundus cannot be excluded. Further evaluation with barium study recommended. Small uncomplicated fat containing left inguinal hernia. Prominent prostate measuring 42 mm in width. Moderate stool in the rectum and mild stool in the more proximal colon. Unremarkable appendix. Partially visualized right hip arthroplasty. Curvilinear sclerotic line in the subarticular portion of the left pubic body may be due to an age-indeterminate (more likely chronic than acute) nondisplaced fracture. Vascular calcifications. IMPRESSION: Stones/stone fragments in the right ureter (including 1 within the right ureterovesicular junction) with associated mild hydronephrosis. Nonobstructive left ureterovesicular junction stone. Bilateral nonobstructive renal stones. Other findings as dictated above. Date of Service: 02/15/24 XR ABDOMEN KUB CLINICAL INDICATION: N40.1 - Benign prostatic hyperplasia with lower urinary tract symptoms COMPARISON: 09/18/2023 TECHNIQUE: AP view of the abdomen. FINDINGS: Previously seen right nephroureteral stent has been removed. Multiple calcified stones are again seen throughout both kidneys. There is a large calcified stone in the right paraspinal soft tissues at the level of the L3 likely within the proximal ureter. This is grossly unchanged in position compared to the prior exams. There are multiple additional calcifications along the right paraspinal soft tissues extending more inferiorly which could represent additional ureteral stones. Bowel gas pattern is unremarkable. Status post right hip total arthroplasty. Degenerative changes seen of the lumbar spine and left hip joint IMPRESSION: 1. Bilateral nephrolithiasis. 2. Large calcified stone in the right paraspinal soft tissues at the level of L3 likely within the proximal ureter. This is grossly unchanged in position compared to the prior exams. There are multiple additional calcifications along the right paraspinal soft tissues extending more inferiorly which could represent additional ureteral stones. Date of Service: 09/14/23 CT ABDOMEN AND PELVIS WITHOUT CONTRAST CLINICAL INFORMATION: History of kidney stones status post stent COMPARISON: CT abdomen pelvis 09/04/2023 TECHNIQUE: Multidetector volumetric imaging was performed from the superior aspect of the liver through the pubic symphysis. Sagittal and coronal reformatted images were obtained on the technologist's workstation. This CT examination was performed using dose optimization techniques as appropriate, variously including the following: *Automated exposure control *Adjustment of mA and/or kV according to patient size (this includes techniques or standardized protocols for targeted exams where dose is matched to indication/reason for exam; i.e. extremities or head) *Use of iterative reconstruction technique DLP: 741 mGy-cm FINDINGS: LUNG BASES: Calcified granulomas are present along with traction bronchiectasis and scarring. LIVER, GALLBLADDER, AND BILIARY TREE: The liver is normal in size, shape, and attenuation. No focal hepatic lesion or biliary ductal dilatation is present. The gallbladder is unremarkable with no evidence of radiopaque gallstones, gallbladder wall thickening, or obvious pericholecystic inflammatory changes. PANCREAS: Unremarkable. SPLEEN: Unremarkable. ADRENAL GLANDS: Unremarkable. KIDNEYS AND URETERS: On the right, a double-J internally stent is present. Multiple small intrarenal calculi are seen. There is one larger calculus at the UP junction measuring 0.8 cm. There is a 5 mm calculus adjacent to the stent in the mid ureter. Multiple nonobstructing calculi present in the left kidney. A benign left mid renal 1.0 cm Bosniak class I renal cyst is noted which requires no additional imaging or follow up. No solid renal masses are seen. BLADDER: Logan catheter is present in the bladder GASTROINTESTINAL TRACT: The small and large bowel are unremarkable. The appendix is unremarkable. ABDOMINAL WALL: Tiny periumbilical hernia contains only fat. There is a tiny left inguinal hernia seen containing only fat. LYMPH NODES: No retroperitoneal lymphadenopathy. VASCULAR: Unremarkable. PELVIC VISCERA: The prostate and seminal vesicles are unremarkable. OSSEOUS STRUCTURES: There is a right total hip prosthesis present. Marked degenerative changes are present throughout the spine with mild scoliosis convex to right. IMPRESSION: 1. Bilateral nephrolithiasis with right-sided double-J stent in place. There is a 5 mm calculus adjacent to the stent in the mid ureter. 2. Other incidental findings as described above. Assessment & Plan Assessment & Plan (1) Bilateral kidney stones: Code(s): N20.0 - Calculus of kidney Category: Medical (2) BPH loc w urin obs/LUTS: Code(s): N40.1 - Benign prostatic hyperplasia with lower urinary tract symptoms Category: Medical (3) Chronic renal disease: Code(s): N18.9 - Chronic kidney disease, unspecified Category: Medical Qualifiers: Chronic kidney disease stage: unspecified stage Qualified Code(s): N18.9 - Chronic kidney disease, unspecified (4) Ureteral stent present: Code(s): Z96.0 - Presence of urogenital implants Category: Medical Plan Plan right ESWL right ureteral stent removal. Will discuss with Cardiology regarding stopping eliquis prior. Patient Instructions: The patient had an opportunity to ask questions regarding treatment plan. The patient expressed understanding and agreement with the above treatment plan. The patient is aware they should contact our office by phone for worsening of their current condition or the appearance of new symptoms. Compliance is encouraged with any medications and followup testing that is ordered. It is a privilege to be allowed the opportunity to participate in the urologic care of your patient. If you have any questions or concerns regarding treatment for the above conditions please do not hesitate to contact me. The office telephone contact is [phone]. This note is constructed in part using voice recognition software. While every effort has been made to ensure accuracy network field engineer errors may have been included. Yours sincerely, Kuldip Ibarra MD Scribe Plan - Not visible on output: Patient was informed and verbally consented to the use of an ambient scribe for clinic note documentation during this visit. Coding Level of Care Code Tele Est Pt Level 3 (30974) Complex EM visit Add On G2211 Diagnoses Bilateral kidney stones N20.0 BPH loc w urin obs/LUTS N40.1 Chronic kidney disease, unspecified CKD stage N18.9 Chronic kidney disease stage: unspecified stage Ureteral stent present Z96.0
--- OUTSIDE RECORDS SUMMARY | 2024-06-10 10:43 | XMS_ITS ---
Author Organization Moris Yu MD Address [address] [place], [place] [id number] Care Team Providers Care Senior Sales Operations Manager Name Role Phone Moris Yu Primary Care Provider Results Component Value Reference Range Notes Complete Blood Count Auto Di ff Reviewed date:03/01/2024 11:46:39 AM Interpretation: Performing Lab:[facility], [address] [place] [phone] Notes/Report: White Blood Count 5.6 4.8-10.8 X10*3/uL [...] NRBC Abs Auto 0.000 0.0-0.012 X10*3/uL Comprehensive [place]. Panel Fa st Reviewed date:03/01/2024 12:19:08 PM Interpretation: Performing Lab:[facility], [address] [place] [phone] Notes/Report: Sodium 141 135-145 mmol/L Potassium 4.4 [...] Panel Reviewed date:03/01/2024 12:18:48 PM Interpretation: Performing Lab:[facility], [address] [place] [phone] Notes/Report: Triglycerides 76 <150 mg/dL Desirable Triglyceride: [...] (Free>4and<10) Reviewed date:03/01/2024 12:19:16 PM Interpretation: Performing Lab:[address] [phone] Notes/Report: PSA,Total (Free>4and<10) 0.20 0.00-4.00 ng/mL A [...] Reviewed date:03/08/2024 11:48:58 AM Interpretation:BETSY 03/08/24 Performing Lab:[facility], [address] [place] [phone] Notes/Report: Urine, Clean Catch Color Urine Yellow Appearance Urine Hazy PH 6.0 5.0-9.0 Glucose Urine UA Negative Negative mg/dL Urine Blood Large (3+) Negative Specific [place] - Urine 1.020 1.005-1.025 Urine Protein Trace [...] Location Date Provider Diagnosis Moris Yu MD [address] [place] [phone] 03/01/2024 Moris Yu Pure hypercholestero lemia E78.00 [...] Provider Name:Moris Wiggins ier, 09/06/2024 08:00:00 AM, [address] [place] [address], [address], [phone], Provider Name:Moris Wiggins ier, 09/13/2024 02:00:00 PM, [address] [place] [address], [address], [phone], Provider Name:Moris Wiggins ier, 03/06/2025 08:00:00 AM, [address] [place] [address], [phone], Provider Name:Moris Wiggins ier, 03/13/2025 02:30:00 PM, [address] [place] [address], [phone], Progress Notes * Erasmo QUEVEDO BDOB: (79 yo M)Acc No.[id number]:03/01/2024 Progress Note Patient:?Erasmo QUEVEDO Provider:?Moris Yu MD :1945???Age:78 Y???Sex:Male Rakesh e:03/01/2024 Address:[address], [address] [phone] Subjective: * Chief Complaints: * ???1. Annual labs. * Medical History:? Objective: * Vitals:? Assessment: * Assessment: 1.?Pure hypercholesterolemia - E78.00 (Primary)???2.?Thrombocytopenia - D69.6???3.?Chronic congestive heart failure, unspecified heart failure type - I50.9??? Plan: * Treatment: 2.?Thrombocytopenia?LAB: Complete Blood Count Auto Diff (Collection Date & Time - 03/01/2024 08:15 AM) ?LAB: Comprehensive [place]. Panel Fast (Collection Date & Time - [...] Time - 03/01/2024 08:15 AM) ?LAB: Comprehensive [place]. Panel Fast (Collection Date & Time - 03/01/2024 08:15 AM) ?LAB: Lipid Panel (Collection Date & Time - 03/01/2024 08:15 AM) ?LAB: PSA,Total (Free>4and<10) (Collection Date & Time - 03/01/2024 08:15 AM) ?LAB: UA ClnCatch+Micro w/rflx Cult (Collection Date & Time - 03/01/2024 08:15 AM) * Procedure Codes:?12616 VENIP UNCT, ROUTINE* * * The named appointment provid er may or may not be the originator of this progress note, and it is not deemed complete until electronically signed by the appointment provider. Sign off status: Pending * Provider:?Moris Yu MD Date:?0 03/01/2024 Generated for Marie vázquez/Jcaob/Tuckeritting on:?06/10/2024 10:43 AM EDT
--- OUTSIDE RECORDS SUMMARY | 2024-06-10 10:43 | XMS_ITS ---
Author Organization Moris Yu MD Address [address] [place] [phone] Care Team Providers Care Food Production Supervisor Name Role Phone Moris Yu Primary Care Provider REASON FOR VISIT UGI orders Encounters Encounter Location Date Provider Diagnosis Moris Yu MD [address] [place] [address] [place] [phone] 04/05/2024 Moris Yu Abnormal computed tomography of abdomen and pelvis R93.5 Assessments Encounter Date Diagnosis (ICD Code) Assessment Notes Treatment Notes Treatment Clinical Notes Section Notes 04/05/2024 Abnormal computed tomography of abdomen and pelvis (ICD-10 - R93.5) Plan Of Treatment Pending Test Test Name Order Date XR GI SERIES 04/05/2024 Next Appt Details Provider Name:Moris delgadillo, 09/06/2024 08:00:00 AM, [address] [place] [address], [address], [phone], Provider Name:Moris delgadillo, 09/13/2024 02:00:00 PM, [address] [place] [address], [address], [phone], Provider Name:Moris delgadillo, 03/06/2025 08:00:00 AM, [address] [place] [address], [address], [phone], Provider Name:Moris delgadillo, 03/13/2025 02:30:00 PM, [address] [place] [address], [address], [phone], Progress Notes * Erasmo QUEVEDOOB: 6 (78 yo M)Acc No.[id number]:04/05/2024 Patient:?Erasmo QUEVEDO :1945???Age:78 Y???Sex:Male Address:[address] [address] Subjective: * Chief Complaints: * ???UGI orders * Medical History:? * Surgical History:? * Hospitalization/Major Diagno stic Procedure:? * Medications:? Objective: * Vitals:? * Physical Examination:? Assessment: * Assessment: 1.?Abnormal computed tomogra phy of abdomen and pelvis - R93.5??? Plan: * Treatment: * Procedure Codes:? * true * Date:? Generated for Marie vázquez/Jacob/eTransmitting on:?06/10/2024 10:43 AM EDT
--- OUTSIDE RECORDS SUMMARY | 2024-06-10 10:44 | XMS_ITS | Clinical Summary ---
Author Organization [facility] it Address [address] [place] [address] Care Team Providers Care Offset Second Press Operator Name Role Phone Moris uY MD Primary Care Provider Surgical History Surgery [...] Ron Sanchez MD; Location: [facility]); Service: Orthopedics; Laterality: Right; JOINT REPLACEMENT PROCEDURE:JOINT REPLACEMENT Medical History Medical History Date Comments Asthma 11/08/2016 DX:Asthma Interstitial lung disease ([facility] [place] V24, [facility] V28) 11/08/2016 DX:Interstitial lung disease (HCC) Pulmonary sarcoidosis ([facility] V24) 11/24/2016 DX:Pulmonary sarcoidosis (HCC) Seasonal allergic rhinitis 11/24/2016 DX:Se asonal allergic rhinitis Nephrolithiasis 03/17/2017 DX:Nephrolithias is; COMMENT: 06/29/2015 Hyperlipidemia 04/20/2017 DX:Hyperlipidemi a Asthma DX:Asthma Hypertension DX:Hypertension Kidney damage DX:Kidney damage Osteoarthritis DX:Osteoarthriti s Sarcoidosis, lung ([facility] V24) DX:Sarcoidosis, lung (HCC) PVC (premature ventricular contraction) DX:PVC (premature ventricular contraction) ARCHER (dyspnea on exertion) DX:ARCHER (dyspnea on exertion) Pneumonia DX:Pneumonia Bronchitis, chronic (CMS/HCC V24, CMS/HCC V28) DX:Bronchitis, chronic (HCC) Hyperlipidemia DX:Hyperlipidemi a Heartburn DX:Heartburn [...] - 2023-2 5 season) 2023 Influenza Vaccine (Season Ended) 2024 HIB Vaccines Aged Out No longer eligi [...] age to complete this topic Meningococcal B Vaccine Aged Out No l onger eligible based on patient's age to complete this topic RSV Immunization Patients Un janice 20 months Aged Out No longer eligible b ased on patient's age to complete this topic Varicella Vaccines Aged Out No longer eligible based on patient's age to complete this topic Medical Devices Implanted Type Area Postal Carrier Device Identifier Shelf Expiration Date Model / Serial / Lot Shell Trident Ii F 58mm 5 Screw Hole Cluster Tritanium - [id number] Implanted:Qty: 1 on 08/29/2019 by Ron Sanchez MD Right: Hip [employer] [id number] 12/24/2023 702-04-58F / / [id number] Screw Trident Ii 30mm 6.5mm Low Profile Hexagonal Bone - [id number] Implanted:Qty: 1 on 08/29/2019 by Ron Sanchez MD Right: Hip [employer] [id number] 01/08/2024 4017-7188 / / 33TH Insert Trident 10d F 36mm X3 Acetabular Hip - [id number] Implanted:Qty: 1 on 08/29/2019 by Ron Sanchez MD Right: Hip [employer] [id number] 01/14/2024 623-10-36F / / [id number] Screw Trident Ii 30mm 6.5mm Low Profile Hexagonal Bone - [id number] Implanted:Qty: 1 on 08/29/2019 by Ron Sanchez MD Right: Hip [employer] [id number] 12/10/2023 3396-9775 / / [id number] Stem Hip Neck Angle 127 Degree Accolade Ii Sz6 - [id number] Implanted:Qty: 1 on 08/29/2019 by Ron Sanchez MD Right: Hip [employer] [id number] 10/04/2022 6768-8583 / / [id number] Head V40 -5mm 36mm Delta Femoral Hip - [id number] Implanted:Qty: 1 on 08/29/2019 by Ron Sanchez MD Right: Hip [employer] [id number] 07/31/2024 6570-0-036 / / [id number] Care Teams Offset Second Press Operator Relationship Specialty Start Date End Date Moris Yu MD PCP - General Internal Medicine 01/24/17
--- OUTSIDE RECORDS SUMMARY | 2024-06-10 10:44 | XMS_ITS | Clinical Summary ---
Author Organization [facility] Address [address] [place] [address] Phone Care Team Providers Care Tube Operator Name Role Phone Moris Yu MD Primary Care Provider [phone] Allergies Active Allergy Reactions Criticality Noted Date [...] 01/09/2015 Renal stone 01/09/2015 Sarcoidosis 01/09/2015 Immunizations Immunization Administration Dates Next Due Pneumococcal Polysaccharide 11/24/2016 [...] Due Date Last Done Comments Pneumococcal Vaccine: 50+ Ye ars (2 of 2 - PCV) 11/24/2017 11/24/2016 Influenza Vaccine (Season Ended) 2024 Hepatitis B Vaccine Aged Out No longe r eligible based on patient's age to complete this topic Insurance Medicare [facility] Medicare [facility] Care Teams Tube Operator Relationship Specialty Start Date End Date Moris Yu MD [address] [place] [address] PCP - General Internal Medicine 08/14/20
--- OUTSIDE RECORDS SUMMARY | 2024-06-10 10:44 | XMS_ITS ---
Author Organization Moris Yu MD Address [address] [place] [id number] Care Team Providers Care Senior Microstrategy Developer Name Role Phone Moris Yu Primary Care Provider [phone] Allergies Allergen (clinical drug ingredient) Drug/Non Drug [...] Location Date Provider Diagnosis Moris Yu MD [address] [place] [address] [place] [id number] 03/08/2024 Moris Yu Gross hematuria R31. 0 [...] 08:00:00 AM, [address], [address], [place], [place], [id number], Provider Name:Moris San Bradyeunice ier, 09/13/2024 02:00:00 PM, [address], [address], [place], [place], [phone], Provider Name:Moris eastmanr, 03/06/2025 08:00:00 AM, [address], [address], [place], [phone], Provider Name:Moris Mena Feliciano eastmanr, 03/13/2025 02:30:00 PM, [address], [address], [place], [phone], Progress Notes * Erasmo QUEVEDO BDOB: (78 yo M)Acc No.[id number]:03/08/2024 Patient:?Erasmo Quevedo B Provider:?Moris Yu MD :1945???Age:78 Y???Sex:Male Rakesh e:03/08/2024 Address:[address]-[address] Subjective: * Chief Complaints: * ???CBACK [...] Pets: none. no Travel outside of the [place]. * Medications:?TakingMultaq 40 0 MG Tablet [...] Auto 0.000 0.0-0. 012 - X10*3/uL ???Lab:Comprehensive [place]. P ir[facility] Fast (Order Date - 03/01/2024) [...] Blood Large (3+) A Negative - ?Specific [place] - Urine 1.020 1.005-1.025 - ?Urine Protein [...] MD Date:?0 03/08/2024 Generated for Marie vázquez/Jacob/Tuckeritting on:?06/10/2024 10:44 AM EDT History and Physical Notes * [...] had two or more falls in the year?: No Communication Needs Communication Needs Does [...]
--- OUTSIDE RECORDS SUMMARY | 2024-06-10 10:44 | XMS_ITS | Clinical Summary ---
Author Organization [facility] Address [address] [place] [address] Care Team Providers Care Onshore Diver Name Role Phone Moris Yu MD Primary Care Provider [phone] Allergies Active Allergy Reactions Criticality Noted Date [...] mg by nebulization daily. 0 Active Tiotropium [place] Monohydrate (SPIRIVA RESPIMAT) 2.5 MCG/ACT AERS Inhale [...] this topic Medical Devices Implanted Type Area Mechanical Engineering Technologist Device Identifier Shelf Expiration Date Model / Serial / Lot Shell Trident Ii F 58mm 5 Screw Hole Cluster Tritanium - [id number] - [id number] Implanted:Qty: 1 on 08/29/2019 by Ron Sanchez MD at [facility] Right: Hip [employer] [id number] 12/24/2023 702-04-58F / / [id number] Screw Trident Ii 30mm 6.5mm Low Profile Hexagonal Bone - [id number] - [id number] Implanted:Qty: 1 on 08/29/2019 by Ron Sanchez MD at [facility] Right: Hip [employer] [id number] 01/08/2024 8701-0595 / / 33TH Insert Trident 10d F 36mm X3 Acetabular Hip - 169575 - [id number] Implanted:Qty: 1 on 08/29/2019 by Ron Sanchez MD at [facility] Right: Hip [employer] [id number] 01/14/2024 623-10-36F / / [id number] Screw Trident Ii 30mm 6.5mm Low Profile Hexagonal Bone - 846035 - [id number] Implanted:Qty: 1 on 08/29/2019 by Ron Sanchez MD at [facility] Right: Hip [employer] [id number] 12/10/2023 3353-4419 / / 3HYD Stem Hip Neck Angle 127 Degree Accolade Ii Sz6 - [id number] - [id number] Implanted:Qty: 1 on 08/29/2019 by Ron Sanchez MD at [facility] Right: Hip [employer] [id number] 10/04/2022 3632-6477 / / [id number] Head V40 -5mm 36mm Delta Femoral Hip - 888029 - [id number] Implanted:Qty: 1 on 08/29/2019 by Ron Sanchez MD at [facility] Right: Hip [employer] [id number] 07/31/2024 6570-0-036 / / [id number] Advance Directives For more information, please contact: [phone] Latest Code Status on File Code Status [...] way: discussion with patient . Care Teams Onshore Diver Relationship Specialty Start Date End Date Moris Yu MD [address] [place] [address] PCP - General Internal Medicine 06/26/19
--- OUTSIDE RECORDS SUMMARY | 2024-06-10 10:44 | XMS_ITS | Patient Health Record ---
Author Organization Moris Yu MD Address [address] [place] [phone] Care Team Providers Care Manager Of Sustainability Name Role Phone Moris Yu Primary Care Provider [phone] Allergies Allergen (clinical drug ingredient) Drug/Non Drug Allergy documented on EMR Reaction Allergy Type Onset Date Status Gadavist hives Drug Allergy Active azithromycin Zithromax Z-Jhonny severe diarrhea Drug Allergy Active penicillin G Penicillin G Potassium rash Drug Allergy Active Doxycycline Calcium hives Drug Allergy Active Gadolinium and/or gadolinium compound (FN) gadalinium (uncoded) hives Allergy Active Results Component Value Reference Range Notes Liver Panel Reviewed date:07/14/2023 08:11:47 PM Interpretation: Performing Lab:[address] [address] Notes/Report: Bilirubin Total 1.0 0.0-1.0 mg/dL Bilirubin Direct 0.4 0.0-0.5 mg/dL Aspartate Amino Transferase 23 5-37 U/L Alanine Aminotransferase 20 0-40 U/L Total Protein 7.5 6.5-8.0 g/dL Albumin Level 3.8 3.5-5.0 g/dL Alkaline Phosphatase 63 39-117 U/L Lipid Panel with Reflex Reviewed date:07/14/2023 08:11:57 PM Interpretation: Performing Lab:[address] [address] Notes/Report: Triglycerides 97 <150 mg/dL Desirable Triglyceride: [...] low results in patients with liver disease. Complete Blood Count Auto Di ff Reviewed date:03/01/2024 11:46:39 AM Interpretation: Performing Lab:[facility], [address] [place] [phone] Notes/Report: White Blood Count 5.6 4.8-10.8 X10*3/uL [...] 0.0-0.2 /100WBC Neutrophils Absolute Auto 3.3 2.0-8.3 x10*3/uL Imm Gran Abs Auto 0.04 0.00-0.03 X10*3/uL Lymphocytes Absolute Auto 1.3 1.2-4.9 X10*3/uL Monocytes Absolute Auto 0.6 0.1-1.2 X10*3/uL Eosinophils Absolute Auto 0.3 0.0-0.4 X10*3/uL Basophils Absolute Auto 0.0 0.0-0.2 X10*3/uL NRBC Abs Auto 0.000 0.0-0.012 X10*3/uL Comprehensive Romayor. Panel Fa st Reviewed date:03/01/2024 12:19:08 PM Interpretation: Performing Lab:[facility], [address] [place] [phone] Notes/Report: Sodium 141 135-145 mmol/L Potassium 4.4 [...] Panel Reviewed date:03/01/2024 12:18:48 PM Interpretation: Performing Lab:[facility], [address] [place] [phone] Notes/Report: Triglycerides 76 <150 mg/dL Desirable Triglyceride: [...] (Free>4and<10) Reviewed date:03/01/2024 12:19:16 PM Interpretation: Performing Lab:[address] [address] Notes/Report: PSA,Total (Free>4and<10) 0.20 0.00-4.00 ng/mL A [...] Reviewed date:03/08/2024 11:48:58 AM Interpretation:BETSY 03/08/24 Performing Lab:[address] [address] Notes/Report: Urine, Clean Catch Color Urine Yellow Appearance Urine Hazy PH 6.0 5.0-9.0 Glucose Urine UA Negative Negative mg/dL Urine Blood Large (3+) Negative Specific [place] - Urine 1.020 1.005-1.025 Urine Protein Trace Neg-Trace mg/dL Urine Ketones Negative Negative mg/dL Nitrite Urine Positive Negative Leukocyte Esterase Urine Moderate (2+) Negative RBC Urine >20 0-2 /HPF WBC Urine 0-5 0-5 /HPF Squamous Epithelial Cell Urine 0-2 0-2 /HPF Bacteria Urine 1+ None Seen Hyaline Casts Urine 0-2 0-2 /LPF CT chest wo con Reviewed date:06/25/2023 05:49:35 PM Interpretation: Performing Lab: Notes/Report: [address] [address] [address] Scan Report Signed Patient: Erasmo Quevedo MR#: [id number] [birth year] : 1945 Acct:[id number] Age/Sex: 78 / M ADM Date: 06/19/23 Loc: .CT Attending Dr: Sebastian Patricia MD Ordering Physician: Sebastian Patricia MD Date of Service: 06/19/23 Procedure(s): CT chest wo IV con Accession Number(s): [id number] cc: Moris Yu MD; Sebastian Patricia MD [...] in OV> 06/24/23 1154 DD/ 1042 TD/TT: Operations Research Director: [place] [address] [address] [address] Scan Report Signed Patient: Chris Quevedo MR#: [id number] 70 : 1945 Acct:[id number] Age/Sex: 78 / M ADM Date: 06/19/23 Loc: HO.CT Attending Dr: Sebastian Patricia MD Ordering Physician: Sebastian Patriica MD Date of Service: 06/19/23 Procedure(s): CT bunny st wo IV con Accession Number(s): [id number] cc: Moris Yu MD; Sebastian Patricia MD EXAMINATION: CT CHEST WITHOUT CONTRAST CLINICAL INFORMATION: Pulmonary nodules. COMPARISON: CT chest 07/20/2020. TECHNIQUE: Multidetector volume tric CT imaging of the chest was done. Axial MIP volume rendering provided. Sagittal and coronal reformatted images were obtained. This CT examination was performed using dose optimization techniques as appropriate, various ly including the following: *Automated exposure control *Adjustment of mA an d/or kV according to patient size (this includes techniques or standardized protocols for targeted exams where dose is matched to indication/reason for exam; i.e. extremities or head) *Use of iterative reconstruction technique DLP: 322 mGy-cm FINDINGS: LUNGS: Again seen ar e numerous bilateral pulmonary nodules many of which have associate d calcification. Rich images of most have been saved. When comparis on is made to the 07/20/2020 study there has been no significant or meaningful interval change. Some traction bronchiectasis is present at the lung bases, most marked in the right lower lobe medially. MEDIASTINUM: Heart s ize is normal. Again seen is mediastinal and bilateral hilar lymphadenopathy with the majority of nodes with calcification unchan ged when compared to the 07/20/2020 study. CORONARY ARTERY CALCIFICATION: Extensive. PLEURA: There is no pleural effusion. No pleural mass or thickening. AXILLA: No lymphadenopathy. UPPER ABDOMEN: Unremarkable. OSSEOUS STRUCTURES: Mild degenerative changes. No bony destructive lesions. C T/CT chest wo IV con IMPRESSION: Stable appearance of the chest with numerous bilateral pulmonary nodules and mediasti nal and hilar lymphadenopathy. The majority of the nodules and lymph no ilana contain calcification. 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 Fleischner guideline s were followed. Dictated By: Serjio Torres MD Signed By: <Electronically signed by Serjio Torres MD in OV> 06/24/23 1154 DD/ 1042 TD/TT: Yard Brakeman ist: SS Hold Gold Reviewed date:07/14/2023 08:13:36 PM Interpretation: Performing Lab:[facility], [address] [place] [phone] Notes/Report: Ebenezer Gold See Note Specimen held untested for 24 hours; Call to request Chemistry testing. Glucose, Whole Blood Reviewed date:08/21/2023 06:52:52 AM Interpretation: Performing Lab:[facility], [address] [place] [phone] Notes/Report: Glucose, Whole Blood 117 60-115 mg/dL METER # : [id number] Urine Culture Reviewed date:08/22/2023 12:41:19 PM Interpretation: Performing Lab:[facility], [address] [place] [phone] Notes/Report: Urine Culture No growth. UA ClnCatch+Micro w/rflx Cul t Reviewed date:08/22/2023 04:59:33 PM Interpretation: Performing Lab:[facility], [address] [place] [phone] Notes/Report: Urine, Catheterized Color Urine Dark Yellow Appearance Urine Cloudy PH 6.5 5.0-9.0 Glucose Urine UA Negative Negative mg/dL Urine Blood Large (3+) Negative Specific [place] - Urine 1.025 1.005-1.025 Urine Protein Trace [...] date:08/21/2023 06:49:40 AM Interpretation: Performing Lab: Notes/Report: [address] [address] [address] Scan Report Signed Patient: Erasmo Quevedo MR#: [id number] 70 : 1945 Acct:[id number] Age/Sex: 78 / M ADM Date: 08/20/23 Loc: HO.ED Attending Dr: Ordering Physician: Mercedes Gonzales Date of Service: 08/20/23 Procedure(s): CT soft tissue neck w IV con Accession Number(s): [id number] cc: Moris Yu MD; Mercedes Gonzales EXAMINATION: [...] Klein in OV> 08/20/232051 DD/ 30 TD/TT: Operations Research Director: [place] [address] [address] Scan Report Signed Patient: Chris Quevedo MR#: [id number] 70 : 1945 Acct:[id number] Age/Sex: 78 / M ADM Date: 08/20/23 Loc: HO.ED Attending Dr: Ordering Physician: Mercedes Gonazles Date of Service: 08/20/23 Procedure(s): CT sof t tissue neck w IV con Accession Number(s): [id number] cc: Moris Yu MD; Mercedes Gonzales EXAMINATION: CT soft tissue neck w IV con CLINICAL INFORMATION: right sided swelling , patient had recent right sided dental extraction, now septic with significant right sided facial and neck swelling - concern for abscess. COMPARISON: None TECHNIQUE: Following the administration of 60 mL of Omnipaque 350 intravenous contrast, helical imaging was performed in the axial plane with generation of bangura l and sagittal reformatted images. This CT examination was performed using dose optimization techniques as appropriate, various ly including the following: * Automated exposure control * Adjustment of mA and/or kV according to patient size (this includes techniques or standardized protocols for targeted exams where dose is matched to indication/reason for exam; i.e. extremities or head) Use of iterative reconstruction technique DLP: 2178 mGy-cm FINDINGS: Absent right mandibu lar second premolar tooth and second molar. Small mucus retention cyst in the posterior maxillary sinus. Inferior mucoperiosteal thickening in the left maxillary sinus. No acute fracture. Streak artifact from dental amalgam limits evaluation of the soft tissues. Phlegmonous changes are seen within the right premandibular space including small foci of gas. There is marked asymmetric soft tiss ue edema and inflammatory stranding within the right cheek/premandibular space. No organized fluid collection. The parotid glands a re homogeneous in attenuation. Submandibular glands are normal. No conto ur abnormality or pathologic enhancement is seen within the oral cavi ty or pharyngeal mucosal space. No retropharyngeal fluid collection is seen. The parapharyngeal fat is preserved. The carotid sheath vasculature opacify normally. No extra mucosal soft tissue mass or fluid collection is seen. No suspicious cervic al lymph nodes are identified by size criteria, enhancement characteristics, or morphology. The thyroid gland appears normal. Multifocal nodular opacities in the visualized lung apices. The imaged portions of the brai n and orbits appear within normal limits. Mild cervical spondylosis . There are no destructive lesions within the osseous structures. C T/CT soft tissue neck w IV con IMPRESSION: 1. Phlegmonous soria es in the right premandibular space with marked asymmetric soft tiss ue edema and inflammatory stranding. No organized fluid collection. 2. Absent right mandibular second premolar tooth and second molar. 3. Multifocal nodula r opacities in the visualized lung apices, likely infectious/inflammat ory in etiology. Dictated By: Christy Klein Signed By: <Electronically signed by Christy Klein in OV> 08/20/232051 DD/ 30 TD/TT: Operations Research Director: CT head/brain wo con Reviewed date:08/21/2023 06:50:20 AM Interpretation: Performing Lab: Notes/Report: [address] [address] [address] Scan Report Signed Patient: Erasmo Quevedo MR#: [id number] 70 : 1945 Acct:[id number] Age/Sex: 78 / M ADM Date: 08/20/23 Loc: HO.ED Attending Dr: Ordering Physician: Mercedes Gonzales Date of Service: 08/20/23 Procedure(s): CT head/brain wo IV con Accession Number(s): [id number] cc: Moris Yu MD; Mercedes Gonzales EXAMINATION: [...] Klein in OV> 08/20/232036 DD/ 29 TD/TT: Operations Research Director: [address] [address] [address] Scan Report Signed Patient: Chris Quevedo MR#: [id number] [birth year] : 1945 Acct:[id number] Age/Sex: 78 / M ADM Date: 08/20/23 Loc: HO.ED Attending Dr: Ordering Physician: Mercedes Gonzales Date of Service: 08/20/23 Procedure(s): CT head/brain wo IV con Accession Number(s): [id number] cc: Moris Yu MD; Mercedes Gonzales EXAMINATION: CT head/brain wo IV con CLINICAL INFORMATION: Patient more altered than baseline COMPARISON: CT head 08/19/2022 TECHNIQUE: Contiguous axial noé ging was performed from the skull base to vertex without intravenous contrast. This CT examination was performed using dose optimization techniques as appropriate, various ly including the following: * Automated exposure control [...] No hydrocephalus. Proportional prominence of the ventricles an d sulcal spaces is consistent with moderate volume loss. Patchy periventricular and deep white matter hypoattenuation is consistent with mild small vessel ischemic changes. The cerebellar tonsils are well positioned. No acute osseous or soft tissue abnormality. Visualized portions of the orbits are unremarka ble. Mild mucoperiosteal thickening in the left maxillary sinus. Remaining visualized paranasal sinuses and mastoid air cells are well-aerated. C T/CT head/brain wo IV con IMPRESSION: 1. No acute intracra nial pathology. No significant interval change compared to 08/16/2022. 2. Chronic small ves sacha ischemic disease and volume loss. Dictated By: Christy Klein Signed By: <Electronically signed by Christy Klein in OV> 08/20/232036 DD/ 29 TD/TT: Operations Research Director: CT facial bones wo con Reviewed date:08/21/2023 06:51:02 AM Interpretation: Performing Lab: Notes/Report: [address] [address] [address] Scan Report Signed Patient: Erasmo Quevedo MR#: [id number] 70 : 1945 Acct:[id number] Age/Sex: 78 / M ADM Date: 08/20/23 Loc: HO.ED Attending Dr: Ordering Physician: Mercedes Gonzales Date of Service: 08/20/23 Procedure(s): CT facial bones wo IV con Accession Number(s): [id number] cc: Moris Yu MD; Mercedes Gonzales EXAMINATION: [...] MD in OV> 08/20/232302 DD/ 42 TD/TT: Operations Research Director: [address] [address] [address] Scan Report Signed Patient: Chris Quevedo MR#: [id number] 70 : 1945 Acct:[id number] Age/Sex: 78 / M ADM Date: 08/20/23 Loc: HO.ED Attending Dr: Ordering Physician: Mercedes Gonzales Date of Service: 08/20/23 Procedure(s): CT fac ial bones wo IV con Accession Number(s): [id number] cc: Moris Yu MD; Mercedes Gonzales EXAMINATION: CT FACIAL BONES WITH OUT CONTRAST CLINICAL INFORMATION: Swelling COMPARISON: CT head and neck exa ms from the same day TECHNIQUE: Noncontrast multidetector helical imaging was performed through the facial bones. Bangura l and sagittal reformatted images were created. This CT examination was performed using dose optimization techniques as appropriate, various ly including the following: *Automated exposure control *Adjustment of mA an d/or kV according to patient size (this includes techniques or standardized protocols for targeted exams where dose is matched to indication/reason for exam; i.e. extremities or head) *Use of iterative reconstruction technique DLP: 1432 mGy-cm FINDINGS: There is redemonstra tion of phlegmonous changes around the right aspect of the mandible as s een on recent soft tissue neck CT. No definite fluid collection is seen, though evaluation for this is limited in the absence of intraveno us contrast. Evaluation of this region is also limited due to strea k artifact from dental hardware. Redemonstrated sequelae of right-si ded mandibular tooth extraction. No acute maxillofaci al fractures are seen. Moderate mucosal thickening of the left maxillary sinus. Mild mucosal thickening of the ri ght maxillary sinus. Slight mucosal thickening of the bilateral ethmoi d air cells. Frontal and sphenoid sinuses appear well-aerated The mandibular condy les are well-seated in the condylar fossa. Mastoid air cells are well-aerated. The orbits demonstra te a grossly normal appearance bilaterally. The globes are intact, a nd there are no suspicious findings to suggest retrobulbar hemorrhage. Visualized portions of the brain parenchyma are unremarkable. Degenerative changes noted in the partially visualized cervical spine. C T/CT facial bones wo IV con IMPRESSION: Redemonstration of phlegmonous changes around the right aspect of the mandible as seen on recent soft tissue neck CT. No definite fluid collection is seen, though evaluation for this is limited in the absence of intraveno us contrast and streak artifact from dental hardware. Dictated By: Erasmo Eldridge MD Signed By: <Electronically signed by Erasmo Eldridge MD in OV> 08/20/232302 DD/ 42 TD/TT: Operations Research Director: US abdomen limited Reviewed date:08/21/2023 06:51:42 AM Interpretation: Performing Lab: Notes/Report: [address] [address] Ultrasound Report Signed Patient: Erasmo Quevedo MR#: [id number] 70 : 1945 Acct:[id number] Age/Sex: 78 / M ADM Date: 08/20/23 Loc: HO.ED Attending Dr: Ordering Physician: Mercedes Gonzales Date of Service: 08/20/23 Procedure(s): US abdomen limited Accession Number(s): [id number] cc: Moris Yu MD; Mercedes Gonzales EXAMINATION: [...] Klein in OV> 08/20/232006 DD/ 99 TD/TT: Operations Research Director: [address] [address] Ultrasound Report Signed Patient: Chris Quevedo MR#: [id number] 70 : 1945 Acct:[id number] Age/Sex: 78 / M ADM Date: 08/20/23 Loc: HO.ED Attending Dr: Ordering Physician: Mercedes Gonzales Date of Service: 08/20/23 Procedure(s): US abd omen limited Accession Number(s): [id number] cc: Moris Yu MD; Mercedes Gonzales EXAMINATION: US ABDOMEN LIMITED CLINICAL INFORMATION: Elevated Bilirubin, septic COMPARISON: CT abdomen/pelvis 10/29/2018 TECHNIQUE: Real-time imaging of the right upper quadrant abdominal viscera. FINDINGS: PANCREAS: Obscured f rom visualization by overlying bowel gas. LIVER: Evaluation is limited due to patient body habitus. The visualized liver is normal in size. The liver contour is normal. There is diffuse mildly increased liver parenchymal echogenicity, consistent with hepatic steatos is. No focal hepatic lesion. There is no intrahepatic biliary duct dilatation seen. GALLBLADDER: The gallbladder is physiologically distended without evidence of stones, sludge, polyps, wall thickening or pericholecystic fluid. COMMON BILE DUCT: No rmal in caliber measuring 0.5 cm in diameter. FREE FLUID: None. U S/US abdomen limited IMPRESSION: Mild hepatic steatosis. Dictated By: Christy Klein Signed By: <Electronically signed by Christy Klein in OV> 08/20/232006 DD/ 99 TD/TT: Operations Research Director: XR chest 1V Reviewed date:08/21/2023 06:52:43 AM Interpretation: Performing Lab: Notes/Report: [address] [address] XRay Report Signed Patient: Erasmo Quevedo MR#: [id number] 70 : 1945 Acct:[id number] Age/Sex: 78 / M ADM Date: 08/20/23 Loc: HO.ED Attending Dr: Ordering Physician: Mercedes Gonzales Date of Service: 08/20/23 Procedure(s): XR chest 1V Accession Number(s): [id number] cc: Moris Yu MD; Mercedes Gonzales EXAMINATION: [...] MD in OV> 08/20/231931 DD/ 43 TD/TT: Operations Research Director: [place] [address] XRay Report Signed Patient: Chris Quevedo MR#: [id number] 70 : 1945 Acct:[id number] Age/Sex: 78 / M ADM Date: 08/20/23 Loc: .ED Attending Dr: Ordering Physician: Mercedes Gonzales Date of Service: 08/20/23 Procedure(s): XR bunny st 1V Accession Number(s): [id number] cc: Moris Yu MD; Mercedes Gonzales EXAMINATION: XR CHEST CLINICAL INFORMATION: Hypoxia sepsis COMPARISON: Chest radiograph fro 06/29/2020 TECHNIQUE: Frontal view of the chest was obtained. FINDINGS: Bilateral pulmonary nodules are better appreciated on prior cross-sectional imag ing. Bilateral low lung volume. Interstitial prominence. Trace bilateral pleural effusions. No pneumothorax. Trachea is midline. Cardiac mediastinal silhouette is mildly enlarged. Osseous structures are intac t. Soft tissues are unremarkable. X R/XR chest 1V IMPRESSION: 1. Bilateral pulmona ry nodules are better appreciated on prior cross-sectional imaging. 2. Bilateral low olaf g volume. 3. Interstitial prominence. 4. Trace bilateral pleural effusions. Dictated By: Trina Vega MD Signed By: <Electronically signed by Rohan Vega MD in OV> 08/20/231931 DD/ 43 TD/TT: Operations Research Director: Complete Blood Count no Diff Reviewed date:08/21/2023 05:13:39 PM Interpretation: Performing Lab:[facility], [address] [place] [phone] Notes/Report: White Blood Count 10.3 4.8-10.8 X10*3/uL [...] ff Reviewed date:08/21/2023 06:48:20 AM Interpretation: Performing Lab:[facility], [address] [place] [phone] Notes/Report: White Blood Count 10.0 4.8-10.8 X10*3/uL [...] 0.0-0.2 /100WBC Neutrophils Absolute Auto 7.9 2.0-8.3 x10*3/uL Imm Gran Abs Auto 0.07 0.00-0.03 X10*3/uL Lymphocytes Absolute Auto 1.0 1.2-4.9 X10*3/uL Monocytes Absolute Auto 1.0 0.1-1.2 X10*3/uL Eosinophils Absolute Auto 0.0 0.0-0.4 X10*3/uL Basophils Absolute Auto 0.0 0.0-0.2 X10*3/uL NRBC Abs Auto 0.000 0.0-0.012 X10*3/uL Comprehensive Met. Panel Reviewed date:08/21/2023 06:52:11 AM Interpretation: Performing Lab:[facility], [address] [place] [phone] Notes/Report: Sodium 138 135-145 mmol/L Potassium 4.3 [...] Estimated Glomerular Filt Rate 47 NOTE: For -Jamaican individuals, multiply the result by 1.210. Chronic [...] Phosphorus Reviewed date:08/21/2023 06:48:29 AM Interpretation: Performing Lab:[facility], [address] [place] [phone] Notes/Report: Phosphorus 2.6 2.7-4.5 mg/dL Magnesium Reviewed date:08/21/2023 06:47:56 AM Interpretation: Performing Lab:[facility], [address] [place] [phone] Notes/Report: Magnesium 1.9 1.6-2.6 mg/dL Venous Blood Gases - POC Reviewed date:08/21/2023 06:47:48 AM Interpretation: Performing Lab:[facility], [address] [place] [phone] Notes/Report: VBG pH 7.40 7.32-7.43 METER #: [id number] additional_comment: Ganga harper lynne henriqueraymondc VBG pCO2 37 METER #: [id number] additional_comment: Ganga harper lynne henriquezc VBG pO2 26 METER #: [id number] additional_comment: Ganga harper lynne henriquezc VBG Base Excess -0.9 METER #: [id number] additional_comment: Ganga harper lynne henriquezc VBG HCO3 23 22-26 mmol/L METER #: [id number] additional_comment: Ganga harper peterbb henriquezc VBG O2 % Saturation 36.0 METER #: [id number] additional_comment: Ganga harper lynne acevesc CDiff Gene PCR Reviewed date:08/22/2023 12:32:10 PM Interpretation: Performing Lab:[facility], [address] [place] [phone] Notes/Report: CALLED ICU 1245 LEAT CDiff Gene PCR NEGATIVE Negative If C. difficile strongly suspected despite one negative test, a second test may be sent vs. empiric treatment for C. difficile infection. Complete Blood Count no Diff Reviewed date:08/22/2023 12:42:16 PM Interpretation: Performing Lab:[facility], [address] [place] [phone] Notes/Report: White Blood Count 8.4 4.8-10.8 X10*3/uL [...] Panel Reviewed date:08/22/2023 12:40:03 PM Interpretation: Performing Lab:[facility], [address] [place] [phone] Notes/Report: Sodium 140 135-145 mmol/L Potassium 3.8 [...] Estimated Glomerular Filt Rate 45 NOTE: For -Jamaican individuals, multiply the result by 1.210. Chronic Kidney Disease: Estimated GFR < 60 mL/min/1.73m2 Severe Kidney Disease: Estimated GFR < 15 mL/min/1.73m2 Glucose Random 92 60-115 mg/dL Calcium 9.2 8.4-10.2 mg/dL Phosphorus Reviewed date:08/22/2023 12:38:52 PM Interpretation: Performing Lab:[facility], [address] [place] [address] Notes/Report: Phosphorus 3.0 2.7-4.5 mg/dL Magnesium Reviewed date:08/22/2023 12:32:17 PM Interpretation: Performing Lab:[facility], [address] [place] [phone] Notes/Report: Magnesium 2.1 1.6-2.6 mg/dL XR chest 1V Reviewed date:08/22/2023 12:39:44 PM Interpretation: Performing Lab: Notes/Report: [address] [place] [address] XRay Report Signed Patient: Erasmo Quevedo MR#: [id number] 70 : 1945 Acct:[id number] Age/Sex: 78 / M ADM Date: 08/21/23 Loc: [facility] [address]: Pat Patricai NP Ordering Physician: Pat Patricia NP Date of Service: 08/22/23 Procedure(s): XR chest 1V Accession Number(s): [id number] cc: Moris Yu MD; Pat Patricia NP [...] in OV> 08/22/23 1152 DD/ 1030 TD/TT: Operations Research Director: [address] [address] XRay Report Signed Patient: Chris Quevedo MR#: [id number] 70 : 1945 Acct:[id number] Age/Sex: 78 / M ADM Date: 08/21/23 Loc: [facility] 470-[address]: Pat Patricia NP Ordering Physician: Pat Patricia NP Date of Service: 08/22/23 Procedure(s): XR bunny st 1V Accession Number(s): [id number] cc: Moris Yu MD; Pat Patricia NP EXAMINATION: XR CHEST CLINICAL INFORMATION: Hypoxia COMPARISON: Chest 08/20/2023 TECHNIQUE: AP upright portable view of the chest was obtained. 10:24 AM FINDINGS: The patient is rotat ed. Low lung volumes. There is increased patchy opacity in the left upper lobe and left lower lobe/lingula. There is definite increased patchy opacity in the right lower lobe/right middle lobe. Again noted is slight streaky opacity in the right upper lobe. The cardiomediastina l silhouette is stable. Probable small right pleural effusion. A few small pulmonary nodules are noted. No acute osseous abnormality. There is marked degenerative change of the left glenohumeral joint. X R/XR chest 1V IMPRESSION: 1. Worsening bilater al pneumonia. 2. Probable small ri ght pleural effusion. 3. A few small pulmo nary nodules are noted, better seen on chest CT scan Dictated By: Trina Timmons MD Signed By: <Electronically signed by Aura Timmons MD in OV> 08/22/23 1152 DD/ 1030 TD/TT: Operations Research Director: Complete Blood Count no Diff Reviewed date:08/23/2023 08:05:06 PM Interpretation: Performing Lab:[facility], [address] [place] [phone] Notes/Report: White Blood Count 7.5 4.8-10.8 X10*3/uL [...] Panel Reviewed date:08/23/2023 08:05:30 PM Interpretation: Performing Lab:[facility], [address] [place] [phone] Notes/Report: Sodium 142 135-145 mmol/L Potassium 3.5 [...] Estimated Glomerular Filt Rate 43 NOTE: For -Jamaican individuals, multiply the result by 1.210. Chronic Kidney Disease: Estimated GFR < 60 mL/min/1.73m2 Severe Kidney Disease: Estimated GFR < 15 mL/min/1.73m2 Glucose Random 97 60-115 mg/dL Calcium 9.2 8.4-10.2 mg/dL XR chest 1V Reviewed date:08/26/2023 06:24:12 PM Interpretation: Performing Lab: Notes/Report: [address] [address] XRay Report Signed Patient: Erasmo Quevedo MR#: [id number] 70 : 1945 Acct:[id number] Age/Sex: 78 / M ADM Date: 08/21/23 Loc: [facility] 468-[address]: Tamera BARRON Ordering Physician: Tamera Watts Date of Service: 08/25/23 Procedure(s): XR chest 1V Accession Number(s): [id number] cc: Tamera Watts; Moris Yu MD EXAMINATION: [...] by Lit Douglas MD in OV> 08/25/23 190 DD/ 06 TD/TT: Operations Research Director: [place] [address] XRay Report Signed Patient: Chris Quevedo MR#: [id number] 70 : 1945 Acct:[id number] Age/Sex: 78 / M ADM Date: 08/21/23 Loc: [facility] 468-[address]: Pavithra BARRON Ordering Physician: Tamera Watts Date of Service: 08/25/23 Procedure(s): XR bunny st 1V Accession Number(s): [id number] cc: Shira Watts; Moris Yu MD EXAMINATION: XR CHEST CLINICAL INFORMATION: Follow-up pneumonia. COMPARISON: Prior chest radiogra phs, most recently 08/22/2023; CT chest dated 06/17/2023.. TECHNIQUE: Frontal view of the chest was obtained. FINDINGS: The heart, great vessels, pulmonary vasculature and mediastinum are stable. There are persistent bilateral patchy opacities, with some interim improvement in the right upper lobe. A small right pleural effusion is question ed. There is no pneumothorax. Multiple calcified lymph nodes are redemonstrated. There are degenerative changes of the shoulders. No acute osseous abnormality is seen. X R/XR chest 1V IMPRESSION: Findings are consist ent with persistent mild bilateral pneumonia and a small right pleural effusion. Dictated By: Selene Douglas MD Signed By: <Electronically signed by Lit Douglas MD in OV> 08/25/23 1901 DD/ 0600 TD/TT: Yard Brakeman ist: BOOM Lactic Acid Reviewed date:09/04/2023 04:43:19 PM Interpretation: Performing Lab:[facility], [address] [place] [phone] Notes/Report: Lactic Acid 1.5 0.5-2.0 mmol/L Urine Culture Reviewed date:09/05/2023 01:04:25 PM Interpretation: Performing Lab:[facility], [address] [place] [phone] Notes/Report: Urine Culture No growth. Blood Culture (First) Reviewed date:09/10/2023 01:28:56 PM Interpretation: Performing Lab:[facility], [address] [place] [phone] Notes/Report: Blood Culture (First) No growth after 5 days. Blood Culture (Second) Reviewed date:09/10/2023 01:28:42 PM Interpretation: Performing Lab:[facility], [address] [place] [phone] Notes/Report: Blood Culture (Second) No growth after [address] chest wo con Reviewed date:09/04/2023 04:44:13 PM Interpretation: Performing Lab: Notes/Report: [address] [place] [address] CT Scan Report Signed Patient: Erasmo Quevedo MR#: [id number] 70 : 1945 Acct:[id number] Age/Sex: 78 / M ADM Date: 09/04/23 [facility]: Pat Patricia BROADCAST CHECKER Ordering Physician: Keesha Stein Date of Service: 09/04/23 Procedure(s): CT chest wo IV con Accession Number(s): [id number] cc: Moris Yu MD; Keesha Stein EXAMINATION: [...] in OV> 09/04/23 1621 DD/ 1515 TD/TT: Operations Research Director: TANIKA [place] [address] [place] [address] CT Scan Report Signed Patient: Chris Quevedo MR#: [id number] 70 : 1945 Acct:[id number] Age/Sex: 78 / M ADM Date: 09/04/23 Loc: [facility]-[address]: Pat Patricia BROADCAST CHECKER Ordering Physician: Keesha Stein Date of Service: 09/04/23 Procedure(s): CT bunny st wo IV con Accession Number(s): [id number] cc: Moris Yu MD; Keesha Stein EXAMINATION: CT CHEST, ABDOMEN AN D PELVIS withoutCONTRAST CLINICAL INFORMATION: Abdominal pain. Constipation. Shortness of breath. History of sarcoidosis. COMPARISON: CT chest June 18. CT abdomen pelvis October 29, 2018 TECHNIQUE: Multidetector volume tric CT imaging of the chest, abdomen and pelvis was obtained . Coron al, Sagittal reformatted images preformed at the CT scanner. [This CT examination was performed using dose optimization techniques as appropriate, variously including the following: *Automated exposure control *Adjustment of mA an d/or kV according to patient size (this includes techniques or standardized protocols for targeted exams where dose is matched to indication/reason for exam; i.e. extremities or head) *Use of iterative reconstruction technique] DLP: 1279 mGy-cm. FINDINGS: CT CHEST: Lungs: No significan t change in bilateral airspace opacities since prior CT of May. Stable bilateral pulmonary nodules many of which are calcified. Patchy parenchymal airspace disease with associated calcifications in the posterior upper and lower lobes and perihilar lung. Stab le mild bronchiectasis at lung bases with interstitial thicken ing lower lobes. No acute airspace disease. Mediastinum: Heart s ize is normal. No pericardial effusion. Numerous calcified l ymph nodes redemonstrated in the mediastinum and [place] bilaterally. No new bulky lymphadenopathy. Coronary arteries: H eavy volume of coronary calcification. Pleura: No pleural effusion. Axilla: No lymphadenopathy. CT ABDOMEN AND PELVIS: Liver, Gallbladder a nd Biliary Tree: The liver is normal in size, shape, and attenuati on. No focal hepatic lesion or biliary ductal dilatation is presen t. The gallbladder is unremarkable with no evidence of radiopaque gallstones, gallbladder wall thickening, or obvious pericholecystic inflammatory changes. Pancreas: Fatty atro phy of the pancreas. No acute abnormality. Spleen: Spleen alex l in size and contour. No focal lesion. Adrenal Glands: Adre nal glands are normal in size. No focal mass. Kidneys and Ureters: Right kidney: Mild fullness of the right renal pelvis and proximal ureter. There is a s tone in the proximal right ureter measuring 1.4 cm in length 0.6 cm in width. This is at the L4-L5 disc level. There is a 1.[address] one in the right renal pelvis. Density measurement 916 Hounsfield units . This stone is 11.4 cm from the posterior skin line. Multiple additional nonobstructive calculi in the right kidney. There are at least 10additional stones range in size from 1 cm to 3 mm. Left kidney: There i s no hydronephrosis or hydroureter. There are least 6 nonobstructive hung culi in the left kidney. There is a 2.8 cm cortical cyst upper pole of l eft kidney. No follow-up imaging is recommended for simple renal cyst. Bladder: Unremarkable. Gastrointestinal Tract: No acute abnormality . There is no bowel wall thickening /edema. There is no bowel obstruction. There is a moderate volume of stool in the colon. The appendix is normal . The small bowel loop s are unremarkable. The stomach is normal. There is no hiatal hernia. Mesentery: No focal inflammation. No free fluid. No free air. Abdominal Wall: No significant hernia is appreciated. Lymph Nodes: Normal. Vascular: Vascular calcifications throughout the abdomen and pelvis. There is no aneurysm of aorta. Pelvic Viscera: Unremarkable. Osseous Structures: Status post right hip replacement. Advanced degenerative spondyl osis of lumbar spine with dextroscoliosis of lower lumbar spine. C T/CT chest wo IV con IMPRESSION: 1. Mild hydronephros is of right kidney due to an obstructing stone in the proximal right ureter. There is a 1.3 cm stone in the right renal pelvis. There are multiple additional nonobstructive bilateral renal calculi. 2. Stable bilateral airspace disease. Multiple calcified and noncalcified pulmona ry nodules. Calcified mediastinal and hilar lymph nodes consistent wit h prior granulomatous disease. No new acute abnormality of the chest. 3. No acute abnormal ity of the abdomen or the pelvis. There is a moderate volume of s tool in the colon. There is no acute abnormality of the bowel. 4. Status post right hip replacement. Advanced degenerative spondylosis of lumba r spine with dextroscoliosis. Dictated By: Gamal Benedict MD Signed By: <Electronically signed by Yasmani Benedict MD in OV> 09/04/23 1621 DD/ 1515 TD/TT: Yard Brakeman ist: TANIKA CT abdomen pelvis wo con Reviewed date:09/04/2023 04:44:58 PM Interpretation: Performing Lab: Notes/Report: [address] [address] [address] Scan Report Signed Patient: Erasmo Quevedo MR#: [id number] 70 : 1945 Acct:[id number] Age/Sex: 78 / M ADM Date: 09/04/23 Loc: [facility]-[address]: Pat Patricia BROADCAST CHECKER Ordering Physician: Keesha Stein Date of Service: 09/04/23 Procedure(s): CT abdomen pelvis wo IV con Accession Number(s): [id number] cc: Moris Yu MD; Keesha Stein EXAMINATION: [...] in OV> 09/04/23 1621 DD/ 1515 TD/TT: Operations Research Director: [place] [address] CT Scan Report Signed Patient: Chris Quevedo MR#: [id number] 70 : 1945 Acct:[id number] Age/Sex: 78 / M ADM Date: 09/04/23 Loc: [place] [address]: Pat Patricia BROADCAST CHECKER Ordering Physician: Keesha Stein Date of Service: 09/04/23 Procedure(s): CT abd omen pelvis wo IV con Accession Number(s): [id number] cc: Moris Yu MD; Keesha Stein EXAMINATION: CT CHEST, ABDOMEN AN D PELVIS withoutCONTRAST CLINICAL INFORMATION: Abdominal pain. Constipation. Shortness of breath. History of sarcoidosis. COMPARISON: CT chest June [address] abdomen pelvis October 29, 2018 TECHNIQUE: Multidetector volume tric CT imaging of the chest, abdomen and pelvis was obtained . Coron al, Sagittal reformatted images preformed at the CT scanner. [This CT examination was performed using dose optimization techniques as appropriate, variously including the following: *Automated exposure control *Adjustment of mA an d/or kV according to patient size (this includes techniques or standardized protocols for targeted exams where dose is matched to indication/reason for exam; i.e. extremities or head) *Use of iterative reconstruction technique] DLP: 1279 mGy-cm. FINDINGS: CT CHEST: Lungs: No significan t change in bilateral airspace opacities since prior CT of May. Stable bilateral pulmonary nodules many of which are calcified. Patchy parenchymal airspace disease with associated calcifications in the posterior upper and lower lobes and perihilar lung. Stab le mild bronchiectasis at lung bases with interstitial thicken ing lower lobes. No acute airspace disease. Mediastinum: Heart s ize is normal. No pericardial effusion. Numerous calcified l ymph nodes redemonstrated in the mediastinum and [place] bilaterally. No new bulky lymphadenopathy. Coronary arteries: H eavy volume of coronary calcification. Pleura: No pleural effusion. Axilla: No lymphadenopathy. CT ABDOMEN AND PELVIS: Liver, Gallbladder a nd Biliary Tree: The liver is normal in size, shape, and attenuati on. No focal hepatic lesion or biliary ductal dilatation is presen t. The gallbladder is unremarkable with no evidence of radiopaque gallstones, gallbladder wall thickening, or obvious pericholecystic inflammatory changes. Pancreas: Fatty atro phy of the pancreas. No acute abnormality. Spleen: Spleen alex l in size and contour. No focal lesion. Adrenal Glands: Adre nal glands are normal in size. No focal mass. Kidneys and Ureters: Right kidney: Mild fullness of the right renal pelvis and proximal ureter. There is a s tone in the proximal right ureter measuring 1.4 cm in length 0.6 cm in width. This is at the L4-L5 disc level. There is a 1.[address] one in the right renal pelvis. Density measurement 916 Hounsfield units . This stone is 11.4 cm from the posterior skin line. Multiple additional nonobstructive calculi in the right kidney. There are at least 10additional stones range in size from 1 cm to 3 mm. Left kidney: There i s no hydronephrosis or hydroureter. There are least 6 nonobstructive hung culi in the left kidney. There is a 2.8 cm cortical cyst upper pole of l eft kidney. No follow-up imaging is recommended for simple renal cyst. Bladder: Unremarkable. Gastrointestinal Tract: No acute abnormality . There is no bowel wall thickening /edema. There is no bowel obstruction. There is a moderate volume of stool in the colon. The appendix is normal . The small bowel loop s are unremarkable. The stomach is normal. There is no hiatal hernia. Mesentery: No focal inflammation. No free fluid. No free air. Abdominal Wall: No significant hernia is appreciated. Lymph Nodes: Normal. Vascular: Vascular calcifications throughout the abdomen and pelvis. There is no aneurysm of aorta. Pelvic Viscera: Unremarkable. Osseous Structures: Status post right hip replacement. Advanced degenerative spondyl osis of lumbar spine with dextroscoliosis of lower lumbar spine. C T/CT abdomen pelvis wo IV con IMPRESSION: 1. Mild hydronephros is of right kidney due to an obstructing stone in the proximal right ureter. There is a 1.3 cm stone in the right renal pelvis. There are multiple additional nonobstructive bilateral renal calculi. 2. Stable bilateral airspace disease. Multiple calcified and noncalcified pulmona ry nodules. Calcified mediastinal and hilar lymph nodes consistent wit h prior granulomatous disease. No new acute abnormality of the chest. 3. No acute abnormal ity of the abdomen or the pelvis. There is a moderate volume of s tool in the colon. There is no acute abnormality of the bowel. 4. Status post right hip replacement. Advanced degenerative spondylosis of lumba r spine with dextroscoliosis. Dictated By: Gamal Benedict MD Signed By: <Electronically signed by Yasmani Benedict MD in OV> 09/04/23 1621 DD/ 1515 TD/TT: Yard Brakeman ist: TANIKA XR chest 1V Reviewed date:09/04/2023 04:46:00 PM Interpretation: Performing Lab: Notes/Report: [address] [address] XRay Report Signed Patient: Erasmo Quevedo MR#: [id number] 70 : 1945 Acct:[id number] Age/Sex: 78 / M ADM Date: 09/04/23 Loc: [facility].ED Attending Dr: Ordering Physician: Keesha Stein Date of Service: 09/04/23 Procedure(s): XR chest 1V Accession Number(s): [id number] cc: Moris Yu MD; Keesha Stein EXAMINATION: [...] in OV> 09/04/23 1444 DD/ 1300 TD/TT: Operations Research Director: [place] [address] XRay Report Signed Patient: Chris Quevedo MR#: [id number] 70 : 1945 Acct:[id number] Age/Sex: 78 / M ADM Date: 09/04/23 Loc: .ED Attending Dr: Ordering Physician: Keesha Stein Date of Service: 09/04/23 Procedure(s): XR bunny st 1V Accession Number(s): [id number] cc: Moris Yu MD; Keesha Stein EXAMINATION: XR CHEST CLINICAL INFORMATION: Shortness of breath COMPARISON: None available. TECHNIQUE: Frontal view of the chest was obtained. FINDINGS: vascularity. LUNGS: Persistent extensive reticular densities are seen in bilateral lungs. Patchy alveol ar densities are seen in medial left upper lobe suprahilar region. Persistent extensive calcified granulomas are seen in medial right supraclavicular chest, bilateral mediastinal and hilar calcified lymph node s. No pneumothorax is seen. BONES: Bony skeleton is intact. X R/XR chest 1V IMPRESSION: 1. Unchanged extensi ve right upper chest calcified granulomas, calcified mediastina l and hilar lymphadenopathy, compatible with sarcoidosis. 3. Persistent bilate ral reticular interstitial lung fibrosis, organizing pneumonia in left suprahilar region. Dictated By: Santi Moses Signed By: <Electronically signed by Santi Moses in OV> 09/04/23 1444 DD/ 1300 TD/TT: Operations Research Director: Complete Blood Count Auto Di ff Reviewed date:09/05/2023 01:08:06 PM Interpretation: Performing Lab:[facility], [address] [place] [phone] Notes/Report: White Blood Count 7.4 4.8-10.8 X10*3/uL [...] 0.0-0.2 /100WBC Neutrophils Absolute Auto 4.4 2.0-8.3 x10*3/uL Imm Gran Abs Auto 0.05 0.00-0.03 X10*3/uL Lymphocytes Absolute Auto 1.6 1.2-4.9 X10*3/uL Monocytes Absolute Auto 1.2 0.1-1.2 X10*3/uL Eosinophils Absolute Auto 0.1 0.0-0.4 X10*3/uL Basophils Absolute Auto 0.0 0.0-0.2 X10*3/uL NRBC Abs Auto 0.000 0.0-0.012 X10*3/uL Basic Metabolic Panel Reviewed date:09/05/2023 01:02:01 PM Interpretation: Performing Lab:[address] [address] Notes/Report: Sodium 139 135-145 mmol/L Potassium 3.9 [...] Estimated Glomerular Filt Rate 35 NOTE: For -Jamaican individuals, multiply the result by 1.210. Chronic Kidney Disease: Estimated GFR < 60 mL/min/1.73m2 Severe Kidney Disease: Estimated GFR < 15 mL/min/1.73m2 Glucose Random 88 60-115 mg/dL Calcium 9.5 8.4-10.2 mg/dL Magnesium Reviewed date:09/05/2023 09:55:27 AM Interpretation: Performing Lab:[facility], [address] [place] [phone] Notes/Report: Magnesium 2.2 1.6-2.6 mg/dL FL guidance in OR Reviewed date:09/10/2023 01:29:32 PM Interpretation: Performing Lab: Notes/Report: [address] [address] Fluoroscopy Report Signed Patient: Erasmo Quevedo MR#: [id number] 70 : 1945 Acct:[id number] Age/Sex: 78 / M ADM Date: 09/04/23 Loc: [facility] 363-[address]: Pat Patricia NP Ordering Physician: Kuldip Ibarra MD Date of Service: 09/05/23 Procedure(s): FL guidance in OR Accession Number(s): [id number] cc: Kuldip Ibarra MD; Moris uY MD EXAMINATION: XR FLUOROSCOPY WITH IMAGES CLINICAL [...] by Jeni Hart MD in OV> 09/09/23 153 DD/ 184 TD/TT: Operations Research Director: [place] [address] Fluoroscopy Report Signed Patient: Chris Quevedo MR#: [id number] 70 : 1945 Acct:[id number] Age/Sex: 78 / M ADM Date: 09/04/23 Loc: [facility] 363-[address]: Pat Patricia NP Ordering Physician: Kuldip Ibarra MD Date of Service: 09/05/23 Procedure(s): FL guidance in OR Accession Number(s): [id number] cc: Leonardo Ibarra MD; Moris Yu MD EXAMINATION: XR FLUOROSCOPY WITH IMAGES CLINICAL INFORMATION: Right stent placement COMPARISON: CT abdomen pelvis on 09/04/2023 TECHNIQUE: Fluoroscopy Supervis ed By: Dr. Ibarra. Fluoroscopy Time: 10 .9 seconds. Cumulative Dose: 2.6 01 mGy. DAP: 1.131 Gycm2. Images: 1. FINDINGS: There is right hydronephrosis and a ureteral stent. F L/FL guidance in OR IMPRESSION: Fluoroscopy performe d in the OR. Please see operative report for additional information. Dictated By: Jeni Hart MD Signed By: <Electronically signed by Jeni Hart MD in OV> 09/09/23 1538 DD/ 1845 TD/TT: Yard Brakeman ist: PN Creatinine Reviewed date:09/06/2023 04:10:25 PM Interpretation: Performing Lab:[facility], [address] [place] [phone] Notes/Report: Creatinine 1.63 0.5-1.4 mg/dL Creatinine Clr Calc Pharmacy 43.4 eGFR (calculated from the MDRD study equation) and eCrCl (calculated from the Cockcroft-Gault equation) are based on different parameters and may not yield comparable results. If eCrCl result is absurd, please check patient's height/weight. Estimated Glomerular Filt Rate 41 NOTE: For -Jamaican individuals, multiply the result by 1.210. Chronic Kidney Disease: Estimated GFR < 60 mL/min/1.73m2 Severe Kidney Disease: Estimated GFR < 15 mL/min/1.73m2 Hold Lav - Possible Hematolo gy Reviewed date:09/07/2023 12:36:28 PM Interpretation: Performing Lab:[facility], [address] [place] [phone] Notes/Report: Hold Lav - Possible Hematology SEE NOTE Specimen will be held untested for 8 hours. Call Hematology if testing is desired. Basic Metabolic Panel Reviewed date:09/07/2023 12:37:28 PM Interpretation: Performing Lab:[facility], [address] [place] [phone] Notes/Report: Sodium 138 135-145 mmol/L Potassium 3.8 [...] Estimated Glomerular Filt Rate 58 NOTE: For -Jamaican individuals, multiply the result by 1.210. Chronic Kidney Disease: Estimated GFR < 60 mL/min/1.73m2 Severe Kidney Disease: Estimated GFR < 15 mL/min/1.73m2 Glucose Random 98 60-115 mg/dL Calcium 8.7 8.4-10.2 mg/dL Lactic Acid Reviewed date:09/15/2023 10:08:39 AM Interpretation: Performing Lab:[address] [phone] Notes/Report: Lactic Acid 1.3 0.5-2.0 mmol/L Blood Culture (First) Reviewed date:09/20/2023 08:17:24 PM Interpretation: Performing Lab:[address] [address] Notes/Report: Blood Culture (First) No growth after 5 days. Blood Culture (Second) Reviewed date:09/20/2023 08:16:12 PM Interpretation: Performing Lab:[address] [address] Notes/Report: Blood Culture (Second) No growth after 5 days. GI Panel Reviewed date:09/16/2023 04:20:02 PM Interpretation: Performing Lab:[address] [phone] Notes/Report: Campylobacter Not Detected Not Detect. Plesiomonas [...] is performed by Multiplexed PCR, utilizing the [employer] Table Array. CT abdomen pelvis wo con Reviewed date:09/15/2023 10:09:52 AM Interpretation: Performing Lab: Notes/Report: [place] [address] CT Scan Report Signed Patient: Erasmo Quevedo MR#: [id number] 70 : 1945 Acct:[id number] Age/Sex: 78 / M ADM Date: 09/14/23 Loc: HO.ED Attending Dr: Ordering Physician: Beverly Sanchez MD Date of Service: 09/14/23 Procedure(s): CT abdomen pelvis wo IV con Accession Number(s): [id number] cc: Moris Yu MD; Beverly Sanchez MD [...] MD in OV> 09/14/232200 DD/ 54 TD/TT: Operations Research Director: [address] [address] [address] Scan Report Signed Patient: Chris Quevedo MR#: [id number] 70 : 1945 Acct:[id number] Age/Sex: 78 / M ADM Date: 09/14/23 Loc: HO.ED Attending Dr: Ordering Physician: Beverly Sanchez MD Date of Service: 09/14/23 Procedure(s): CT abd omen pelvis wo IV con Accession Number(s): [id number] cc: Moris Yu MD; Beverly Sanchez MD EXAMINATION: CT ABDOMEN AND PELVI S WITHOUT CONTRAST CLINICAL INFORMATION: History of kidney st ones status post stent COMPARISON: CT abdomen pelvis 09/04/2023 TECHNIQUE: Multidetector volume tric imaging was performed from the superior aspect of the liver through the pubic symphysis. Sagittal and coronal reformatted images w ere obtained on the technologist's workstation. This CT examination was performed using dose optimization techniques as appropriate, various ly including the following: *Automated exposure control *Adjustment of mA an d/or kV according to patient size (this includes techniques or standardized protocols for targeted exams where dose is matched to indication/reason for exam; i.e. extremities or head) *Use of iterative reconstruction technique DLP: 741 mGy-cm FINDINGS: LUNG BASES: Calcifie d granulomas are present along with traction bronchiectasis and scarring. LIVER, GALLBLADDER, AND BILIARY TREE: The liver is normal in size, shape, and attenuati on. No focal hepatic lesion or biliary ductal dilatation is presen t. The gallbladder is unremarkable with no evidence of radiopaque gallstones, gallbladder wall thickening, or obvious pericholecystic inflammatory changes. PANCREAS: Unremarkable. SPLEEN: Unremarkable. ADRENAL GLANDS: Unremarkable. KIDNEYS AND URETERS: On the right, a double-J internally stent is present. Multiple sm all intrarenal calculi are seen. There is one larger calculus at t he UP junction measuring 0.8 cm. There is a 5 mm calculus adjacent to the stent in the mid ureter. Multiple nonobstructing calcu li present in the left kidney. A benign left mid renal 1.0 cm Bosniak class I renal cyst is noted which requires no additional imaging o r follow up. No solid renal masses are seen. BLADDER: Logan esteban ter is present in the bladder GASTROINTESTINAL TRA CT: The small and large bowel are unremarkable. [...] spine with mild scoliosis convex to right. C T/CT abdomen pelvis wo IV con IMPRESSION: 1. Bilateral nephrolithiasis with right-sided double-J stent in place. There is a 5 mm calc ulus adjacent to the stent in the mid ureter. 2. Other incidental findings as described above. Fleischner guideline s were followed. Dictated By: Serjio Torres MD Signed By: <Electronically signed by Serjio oTrres MD in OV> 09/14/232200 DD/ 54 TD/TT: Yard Brakeman ist: SS Complete Blood Count Auto Di ff Reviewed date:09/16/2023 04:25:25 PM Interpretation: Performing Lab:[facility], [address] [place] [phone] Notes/Report: White Blood Count 9.5 4.8-10.8 X10*3/uL [...] 0.0-0.2 /100WBC Neutrophils Absolute Auto 7.2 2.0-8.3 x10*3/uL Imm Gran Abs Auto 0.07 0.00-0.03 X10*3/uL Lymphocytes Absolute Auto 0.9 1.2-4.9 X10*3/uL Monocytes Absolute Auto 1.2 0.1-1.2 X10*3/uL Eosinophils Absolute Auto 0.1 0.0-0.4 X10*3/uL Basophils Absolute Auto 0.0 0.0-0.2 X10*3/uL NRBC Abs Auto 0.000 0.0-0.012 X10*3/uL CO RRECTED REPORT Basic Metabolic Panel Reviewed date:09/16/2023 04:19:35 PM Interpretation: Performing Lab:[address] [phone] Notes/Report: Sodium 137 135-145 mmol/L Potassium 5.1 [...] Estimated Glomerular Filt Rate 52 NOTE: For -Jamaican individuals, multiply the result by 1.210. Chronic Kidney Disease: Estimated GFR < 60 mL/min/1.73m2 Severe Kidney Disease: Estimated GFR < 15 mL/min/1.73m2 Glucose Random 87 60-115 mg/dL Calcium 9.0 8.4-10.2 mg/dL Hold Lav - Possible Hematolo gy Reviewed date:09/16/2023 04:13:06 PM Interpretation: Performing Lab:[facility], [address] [place] [phone] Notes/Report: Hold Lav - Possible Hematology SEE NOTE Specimen will be held untested for 8 hours. Call Hematology if testing is desired. Liver Panel Reviewed date:09/16/2023 04:11:11 PM Interpretation: Performing Lab:[facility], [address] [place] [phone] Notes/Report: Bilirubin Total 0.6 0.0-1.0 mg/dL Bilirubin Direct 0.2 0.0-0.5 mg/dL Slight Hem olysis Aspartate Amino Transferase 29 5-37 U/L Slight Hemolysis Alanine Aminotransferase 23 0-40 U/L Total Protein 6.6 6.5-8.0 g/dL Albumin Level 3.1 3.5-5.0 g/dL Alkaline Phosphatase 76 39-117 U/L Basic Metabolic Panel Fastin g Reviewed date:09/16/2023 04:12:46 PM Interpretation: Performing Lab:[facility], [address] [place] [phone] Notes/Report: Sodium 141 135-145 mmol/L Potassium 4.0 [...] Estimated Glomerular Filt Rate 56 NOTE: For -Jamaican individuals, multiply the result by 1.210. Chronic Kidney Disease: Estimated GFR < 60 mL/min/1.73m2 Severe Kidney Disease: Estimated GFR < 15 mL/min/1.73m2 Glucose Fasting 76 60-99 mg/dL Calcium 9.1 8.4-10.2 mg/dL Complete Blood Count no Diff Reviewed date:09/18/2023 01:19:22 PM Interpretation: Performing Lab:[facility], [address] [place] [phone] Notes/Report: White Blood Count 7.8 4.8-10.8 X10*3/uL [...] g Reviewed date:09/18/2023 12:40:26 PM Interpretation: Performing Lab:[facility], [address] [place] [phone] Notes/Report: Sodium 139 135-145 mmol/L Potassium 3.7 [...] Estimated Glomerular Filt Rate 55 NOTE: For -Jamaican individuals, multiply the result by 1.210. Chronic Kidney Disease: Estimated GFR < 60 mL/min/1.73m2 Severe Kidney Disease: Estimated GFR < 15 mL/min/1.73m2 Glucose Fasting 86 60-99 mg/dL Calcium 8.5 8.4-10.2 mg/dL XR KUB Reviewed date:09/19/2023 12:17:19 PM Interpretation: Performing Lab: Notes/Report: [address] [address] XRay Report Signed Patient: Erasmo Quevedo MR#: [id number] 70 : 1945 Acct:[id number] Age/Sex: 78 / M ADM Date: 09/15/23 Loc: HO.S3 370-[address]: Jefry Álvarez MD Ordering Physician: Jefry Álvarez MD Date of Service: 09/18/23 Procedure(s): XR KUB Accession Number(s): [id number] cc: Moris Yu MD; Jefry Álvarez MD [...] in OV> 09/19/23 1012 DD/ 1619 TD/TT: Operations Research Director: [place] [address] XRay Report Signed Patient: Chris Quevedo MR#: [id number] 70 : 1945 Acct:[id number] Age/Sex: 78 / M ADM Date: 09/15/23 Loc: .S3 370-[address]: Mat Álvarez MD Ordering Physician: Jefry Álvarez MD Date of Service: 09/18/23 Procedure(s): XR KUB Accession Number(s): [id number] cc: Moris Yu MD; Jefry Álvarez MD EXAMINATION: XR ABDOMEN KUB CLINICAL INDICATION: Evaluate stool burden COMPARISON: CT abdomen pelvis 09/14/2023 TECHNIQUE: AP view of the abdomen. FINDINGS: Minimal stool is pre sent in the colon. Double-J right ureteral stent is present. There is ma rked degenerative changes in the spine with biconvex scoliosis. A right hip prosthesis is present. Bilateral nephrolithiasis agai n seen, better characterized on the recent CT scan. X R/XR KUB IMPRESSION: Minimal stool burden . Other incidental findings as described above. Dictated By: Serjio Torres MD Signed By: <Electronically signed by Serjio Torres MD in OV> 09/19/23 1012 DD/ 1619 TD/TT: Yard Brakeman ist: SS Complete Blood Count Auto Di ff Reviewed date:10/26/2023 09:59:23 AM Interpretation: Performing Lab:[address] [address] Notes/Report: White Blood Count 5.3 4.8-10.8 X10*3/uL [...] 0.0-0.2 /100WBC Neutrophils Absolute Auto 3.5 2.0-8.3 x10*3/uL Imm Gran Abs Auto 0.04 0.00-0.03 X10*3/uL Lymphocytes Absolute Auto 1.0 1.2-4.9 X10*3/uL Monocytes Absolute Auto 0.5 0.1-1.2 X10*3/uL Eosinophils Absolute Auto 0.2 0.0-0.4 X10*3/uL Basophils Absolute Auto 0.0 0.0-0.2 X10*3/uL NRBC Abs Auto 0.000 0.0-0.012 X10*3/uL Erythrocyte Sedimentation Ra te Reviewed date:10/25/2023 02:39:29 PM Interpretation: Performing Lab:[facility], [address] [place] [phone] Notes/Report: Erythrocyte Sedimentation Rate 23 0-15 MM/HR Patients with polycythemia and many hemoglobin abnormalities may have depressed sed rates whereas patients with anemia may have elevated sed rates. Liver Panel Reviewed date:10/25/2023 02:40:10 PM Interpretation: Performing Lab:[facility], [address] [place] [phone] Notes/Report: Bilirubin Total 0.9 0.0-1.0 mg/dL Bilirubin Direct 0.4 0.0-0.5 mg/dL Aspartate Amino Transferase 18 5-37 U/L Alanine Aminotransferase 17 0-40 U/L Total Protein 6.8 6.5-8.0 g/dL Albumin Level 3.4 3.5-5.0 g/dL Alkaline Phosphatase 75 39-117 U/L Basic Metabolic Panel Reviewed date:10/26/2023 09:58:59 AM Interpretation: Performing Lab:[facility], [address] [place] [phone] Notes/Report: Sodium 141 135-145 mmol/L Potassium 4.3 3.3-5.1 mmol/L Chloride 110 96-108 mmol/L Carbon Dioxide 25 22-29 mmol/L Anion Gap 10 12-20 Blood Urea Nitrogen 20 9-16 mg/dL Creatinine 1.99 0.5-1.4 mg/dL Estimated Glomerular Filt Rate 33 NOTE: For -Jamaican individuals, multiply the result by 1.210. Chronic Kidney Disease: Estimated GFR < 60 mL/min/1.73m2 Severe Kidney Disease: Estimated GFR < 15 mL/min/1.73m2 Glucose Random 107 60-115 mg/dL Calcium 9.6 8.4-10.2 mg/dL FL guidance in OR Reviewed date:03/05/2024 12:54:47 PM Interpretation: Performing Lab: Notes/Report: [address] [address] Fluoroscopy Report Signed Patient: Erasmo Quevedo MR#: [id number] 70 : 1945 Acct:[id number] Age/Sex: 78 / M ADM Date: 10/31/23 Loc: .[facility] Attending Dr: Kuldip Ibarra MD Ordering Physician: Kuldip Ibarra MD Date of Service: 10/31/23 Procedure(s): FL guidance in OR Accession Number(s): [id number] cc: Kuldip Ibarra MD; Moris Yu MD EXAMINATION: FLUORO GUIDANCE IN OR CLINICAL INFORMATION: Stone, right. COMPARISON: None available. TECHNIQUE: Fluoroscopy supervised by: Dr. Ibarra. Fluoroscopy time: 16 seconds. Cumulative Dose: 6.45 mGy. Images: 4. FINDINGS: Right nephrostogram and ureteral stent placement. FL/FL guidance in OR IMPRESSION: Fluoroscopy during procedure. Please see procedure report for additional information. Electronically signed by: Jeni Hart MD 03/05/2024 08:52 AM EST Dictated By: Jeni Hart MD Signed By: <Electronically signed by Jeni Hart MD in OV> 03/05/24 0852 DD/ 0758 TD/TT: 10/31/23 0831 Operations Research Director: [place] [address] Fluoroscopy Report Signed Patient: Chris Quevedo MR#: [id number] 70 : 1945 Acct:[id number] Age/Sex: 78 / M ADM Date: 10/31/23 Loc: .[facility] Attending Dr: Kuldip Ibarra MD Ordering Physician: Kuldip Ibarra MD Date of Service: 10/31/23 Procedure(s): FL guidance in OR Accession Number(s): [id number] cc: Leonardo Ibarra MD; Moris Yu MD EXAMINATION: FLUORO GUIDANCE IN OR CLINICAL INFORMATION: Stone, right. COMPARISON: None available. TECHNIQUE: Fluoroscopy supervis ed by: Dr. Ibarra. Fluoroscopy time: 16 seconds. Cumulative Dose: 6.4 5 mGy. Images: 4. FINDINGS: Right nephrostogram and ureteral stent placement. F L/FL guidance in OR IMPRESSION: Fluoroscopy during procedure. Please see procedure report for additional information. Electronically kim d by: Jeni Hart MD 03/05/2024 08:52 AM [facility] Dictated By: Jeni Hart MD Signed By: <Electronically signed by Jeni Hart MD in OV> 03/05/24 0852 DD/ 0758 TD/TT: 10/31/23 0831 Operations Research Director: TANG Urine Culture Reviewed date:11/19/2023 04:14:44 PM Interpretation: Performing Lab:[address] [phone] Notes/Report: Urine Culture Report Result Urine Culture < 10,000 cfu/ml Complete Blood Count Auto Di ff Reviewed date:01/03/2024 12:30:08 PM Interpretation: Performing Lab:[address] [address] Notes/Report: White Blood Count 5.7 4.8-10.8 X10*3/uL [...] 0.0-0.2 /100WBC Neutrophils Absolute Auto 4.0 2.0-8.3 x10*3/uL Imm Gran Abs Auto 0.04 0.00-0.03 X10*3/uL Lymphocytes Absolute Auto 0.9 1.2-4.9 X10*3/uL Monocytes Absolute Auto 0.5 0.1-1.2 X10*3/uL Eosinophils Absolute Auto 0.2 0.0-0.4 X10*3/uL Basophils Absolute Auto 0.0 0.0-0.2 X10*3/uL NRBC Abs Auto 0.000 0.0-0.012 X10*3/uL Basic Metabolic Panel Reviewed date:01/03/2024 12:18:50 PM Interpretation: Performing Lab:[facility], [address] [place] [phone] Notes/Report: Sodium 139 135-145 mmol/L Potassium 4.4 3.3-5.1 mmol/L Chloride 110 96-108 mmol/L Carbon Dioxide 23 22-29 mmol/L Anion Gap 10 12-20 Blood Urea Nitrogen 17 9-16 mg/dL Creatinine 1.74 0.5-1.4 mg/dL Estimated Glomerular Filt Rate 38 NOTE: For -Jamaican individuals, multiply the result by 1.210. Chronic Kidney Disease: Estimated GFR < 60 mL/min/1.73m2 Severe Kidney Disease: Estimated GFR < 15 mL/min/1.73m2 Glucose Random 97 60-115 mg/dL Calcium 9.7 8.4-10.2 mg/dL XR KUB Reviewed date:02/18/2024 03:50:04 PM Interpretation: Performing Lab: Notes/Report: [address] [address] XRay Report Signed Patient: Erasmo Quevedo MR#: [id number] 70 : 1945 Acct:[id number] Age/Sex: 78 / M ADM Date: 02/15/24 Loc: [facility] Attending Dr: Kuldip Ibarra MD Ordering Physician: Kuldip Ibarra MD Date of Service: 02/15/24 Procedure(s): XR KUB Accession Number(s): [id number] cc: Kuldip Ibarra MD; Moris Yu MD [...] OV> 02/17/242038 DD/ 1150 TD/TT: 02/15/24 1205 Operations Research Director: [place] [address] XRay Report Signed Patient: Chris Quevedo MR#: [id number] 70 : 1945 Acct:[id number] Age/Sex: 78 / M ADM Date: 02/15/24 Loc: HO.XRAY Attending Dr: Kuldip Ibarra MD Ordering Physician: Kuldip Ibarra MD Date of Service: 02/15/24 Procedure(s): XR KUB Accession Number(s): [id number] cc: Leonardo Ibarra MD; Moris Yu MD EXAMINATION: XR ABDOMEN KUB CLINICAL INDICATION: 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 FINDINGS: Previously seen righ t nephroureteral stent has been removed. Multiple calcified stones are again seen throughout both kidneys. There is a large calcified ston e in the right paraspinal soft tissues at the level of the L3 likely wit hin the proximal ureter. This is grossly unchanged in position compared to the prior exams. There are multiple additional calcifications along the right paraspinal soft tissues extending more inferiorly which cou ld represent additional ureteral stones. Bowel gas pattern is unremarka ble. Status post right hip total arthroplasty. Degenerative changes seen of the lumbar spine and left hip joint X R/XR KUB IMPRESSION: 1. Bilateral nephrolithiasis. 2. Large calcified s tone in the right paraspinal soft tissues at the level of L3 likely within the proximal ureter. This is grossly unchanged in positio n compared to the prior exams. There are multiple additional calcifications along the right paraspinal soft tissues extending more inferiorly which could represent additional ureteral stones. Electronically kim d by: Newton Elkins MD 02/17/2024 08:39 PM EST Dictated By: Newton Elkins MD Signed By: <Electronically signed by Newton Elkins MD in OV> 02/17/242038 DD/ 1150 TD/TT: 02/15/24 1205 Operations Research Director: Urine Culture Reviewed date:03/03/2024 06:22:09 PM Interpretation: Performing Lab:[facility], [address] [place] [phone] Notes/Report: Urine Culture No growth. CT abdomen pelvis wo con Reviewed date:04/05/2024 10:26:12 AM Interpretation: Performing Lab: Notes/Report: [address] [address] [address] Scan Report Signed Patient: Erasmo Quevedo MR#: [id number] 70 : 1945 Acct:[id number] Age/Sex: 78 / M ADM Date: 04/03/24 Loc: HO.CT Attending Dr: Kuldip Ibarra MD Ordering Physician: Kuldip Ibarra MD Date of Service: 04/03/24 Procedure(s): CT abdomen pelvis wo IV con Accession Number(s): [id number] cc: Kuldip Ibarra MD; Moris Yu MD Report Number: [id number]: Total DLP = 625.00 mGy-cm CLINICAL HISTORY: N20.1 - Calculus of ureter CT abdomen and pelvis without contrast Comparison: None Findings: Small bilateral calcified lung granulomas. Mild bibasilar lung atelectasis. Coronary artery calcifications. A few left renal cysts as well as too small to characterize bilateral renal hypodensities. Bilateral diffusely scattered nonobstructive renal stones measuring up to 9 mm. Right: 15 mm stone in the ureteropelvic junction associated with mild upstream hydronephrosis. Additional 1 or 2 neighboring stone/stones (with an overall measurement of 9 mm) in the mid ureter and 2 mm stone in the ureterovesicular junction. 4 mm stone in the left ureterovesicular junction without associated hydronephrosis/hydroureter. Focal thickening (up to 26 mm) of the posterior wall of the nondistended gastric fundus cannot be excluded. Further evaluation with barium study recommended. Small uncomplicated fat containing left inguinal hernia. Prominent prostate measuring 42 mm in width. Moderate stool in the rectum and mild stool in the more proximal colon. Unremarkable appendix. Partially visualized right hip arthroplasty. Curvilinear sclerotic line in the subarticular portion of the left pubic body may be due to an age-indeterminate (more likely chronic than acute) nondisplaced fracture. Vascular calcifications. IMPRESSION: Stones/stone fragments in the right ureter (including 1 within the right ureterovesicular junction) with associated mild hydronephrosis. Nonobstructive left ureterovesicular junction stone. Bilateral nonobstructive renal stones. Focal thickening (up to 26 mm) of the posterior wall of the nondistended gastric fundus cannot be excluded. Further evaluation with barium study recommended. Curvilinear sclerotic line in the subarticular portion of the left pubic body may be due to an age-indeterminate (more likely chronic than acute) nondisplaced fracture. Correlate clinically. This document has been electronically signed by: Carlene Persaud MD on 04/04/2024 12:46:23 Dictated By: Carlene Persaud MD Signed By: <Electronically signed by Carlene Persaud MD in OV> 04/04/24 1247 DD/ 1246 TD/TT: 04/04/24 1246 Operations Research Director: [place] [address] CT Scan Report Signed Patient: Chris Quevedo MR#: [id number] 70 : 1945 Acct:[id number] Age/Sex: 78 / M ADM Date: 04/03/24 Loc: HO.CT Attending Dr: Kuldip Ibarra MD Ordering Physician: Kuldip Ibarra MD Date of Service: 04/03/24 Procedure(s): CT abd omen pelvis wo IV con Accession Number(s): [id number] cc: Leonardo Ibarra MD; Moris Yu MD Report Number: [id number]: Total DLP = 625.00 mGy-cm CLINICAL HISTORY: N2 0.1 - Calculus of ureter CT abdomen and pelvi s without contrast Comparison: None Findings: Small bilateral calcified lung granulomas. Mild bibasilar lung atelectasis. Coronary artery calcifications. A few left renal cys ts as well as too small to characterize bilateral renal hypodensities. Bilateral diffusely scattered nonobstructive renal stones measuring up to 9 mm. Right: 15 mm stone i n the ureteropelvic junction associated with mild upstream hydronephro sis. Additional 1 or 2 neighboring stone/stones (with an overall measureme nt of 9 mm) in the mid ureter and 2 mm stone in the ureterovesicular junction. 4 mm stone in the le ft ureterovesicular junction without associated hydronephrosis/hydro uret er. Focal thickening (up to 26 mm) of the posterior wall of the nondistended gastric fundus canno t be excluded. Further evaluation with barium study recommended. Small uncomplicated fat containing left inguinal hernia. Prominent prostate measuring 42 mm in width. Moderate stool in th e rectum and mild stool in the more proximal colon. Unremarkable appendix. Partially visualized right hip arthroplasty. Curvilinear scleroti c line in the subarticular portion of the left pubic body may be due to a n age-indeterminate (more likely chronic than acute) nondisplaced fracture. Vascular calcifications. IMPRESSION: Stones/stone fragmen ts in the right ureter (including 1 within the right ureterovesicular junction) with associated mild hydronephrosis. Nonobstructive left ureterovesicular junction stone. Bilateral nonobstruc tive renal stones. Focal thickening (up to 26 mm) of the posterior wall of the nondistended gastric fundus canno t be excluded. Further evaluation with barium study recommended. Curvilinear scleroti c line in the subarticular portion of the left pubic body may be due to a n age-indeterminate (more likely chronic than acute) nondisplaced fractur e. Correlate clinically. This document has be en electronically signed by: Carlene Persaud MD on 04/04/2024 12:46:23 Dictated By: Kenrick Persaud MD Signed By: <Electronically signed by Carlene Persaud MD in OV> 04/04/24 1247 DD/ 1246 TD/TT: 04/04/24 1246 Operations Research Director: [facility] Reviewed date:05/14/2024 10:06:37 AM Interpretation: Performing Lab:[facility], [address] [place] [phone] Notes/Report: R Ureter S1246 Component 1 SEE NOTE Calcium Oxalate Dihydrate (Weddellite) 20% Calcium Oxalate Monohydrate (Whewellite) 80% Stone Weight 0.003 This test was developed and its analytical performance characteristics have been determined by [facility]. It has not been cleared or approved by the FDA. This assay has been validated pursuant to the CLIA regulations and is used for clinical purposes. THIS TEST WAS PERFORMED AT: [facility] [address] [place] [address] SIDDHARTH ZULUAGA MD,PHD,JAN [facility] Pathology Reviewed date:05/08/2024 07:02:03 PM Interpretation: Performing Lab:[facility], [address] [place] [phone] Notes/Report: ---- Name: SaeErasmo Age/Sex: 79/M : 1945 Unit#: [id number] Attend Dr: Kuldip Ibarra MD Re05/07/24 Status : [facility] Location: [facility] Disch: ---- SPEC : [id number] RECD : 05/07/24 STATUS: DI MORRISON NUM: [id number] JAQUELINE: 05/07/24-[address] [facility] [address]: Kuldip Ibarra MD ENTERED: 05/07/24 SP TYPE: Surgical OTHR DR: Moris Yu MD ORDERED: GO Diagnosis Right ureteral stone (removal): Calculus identified; macroscopic description only. Comment: The entire specimen was sent for chemical analysis. Please see the laboratory portion of the EMR f or the outside report from [facility]. Clinical History Calculus of ureter Material Received Right ureteral stone Gross Description Received fresh with gauze labeled right ureteral stone? is a 0.2 cm hard, white-odom calculus, forwarded to [facility] for chemical analysis. No soft tissue is identified. Gross description only. CEDS Copies To: Kuldip Ibarra MD [facility] [address] [place] [address] Dr. Marva wood [address] [place] [address] [email or web address] Moris Yu MD [facility] [address] [place] [address] [address] [place] [address] ---- Signed (signature on file) Judit Tejeda 05/08/24 0856 ---- END OF REPORT Urine Culture Reviewed date:05/13/2024 12:07:29 PM Interpretation: Performing Lab:[facility], [address] [place] [phone] Notes/Report: Urine Culture Report Result Urine Culture < 10,000 cfu/ml O:CANALB Christa albicans Urine Culture Quant Urine Culture < 10,000 cfu/mL FL guidance in OR Reviewed date:05/08/2024 07:02:20 PM Interpretation: Performing Lab: Notes/Report: [address] [address] Fluoroscopy Report Signed Patient: Erasmo Quevedo MR#: [id number] 70 : 1945 Acct:[id number] Age/Sex: 79 / M ADM Date: 05/07/24 Loc: [facility] Attending Dr: Kuldip Ibarra MD Ordering Physician: Kuldip Ibarra MD Date of Service: 05/07/24 Procedure(s): FL guidance in OR Accession Number(s): [id number] cc: Kuldip Ibarra MD; Moris Yu MD EXAMINATION: FL GUIDANCE ONLY HISTORY: cystoscopy, ureteroscopy, retro, laser with stent COMPARISON: Correlation is made with an unenhanced CT of the abdomen and pelvis dated 04/03/2024. TECHNIQUE: Fluoroscopy time: 29.6 seconds. Cumulative Dose: 11.52 mGy. Images: 6. FINDINGS: Images demonstrate placement of bilateral nephroureteral stents. FL/FL guidance in OR IMPRESSION: Fluoroscopy during procedure. Please see procedure report for additional information. Electronically signed by: Jose Cruz Doss MD 05/07/2024 02:42 PM EDT RP Dictated By: Jose Cruz Doss MD Signed By: <Electronically signed by Jose Cruz Doss MD in OV> 05/07/24 1442 DD/ 29 TD/TT: 05/07/24 1350 Operations Research Director: [address] [address] Fluoroscopy Report Signed Patient: Chris Quevedo MR#: [id number] 70 : 1945 Acct:[id number] Age/Sex: 79 / M ADM Date: 05/07/24 Loc: HO.[facility] Attending Dr: Kuldip Ibarra MD Ordering Physician: Kuldip Ibarra MD Date of Service: 05/07/24 Procedure(s): FL guidance in OR Accession Number(s): [id number] cc: Leonardo Ibarra MD; Moris Yu MD EXAMINATION: FL GUID ANCE ONLY HISTORY: cystoscopy, ureteroscopy, retro, laser with stent COMPARISON: Correlation is made with an unenhanced CT of the abdomen and pelvis dated 04/03/2024. TECHNIQUE: Fluoroscopy time: 29 .6 seconds. Cumulative Dose: 11. 52 mGy. Images: 6. FINDINGS: Images demonstrate placement of bilateral nephroureteral stents. F L/FL guidance in OR IMPRESSION: Fluoroscopy during procedure. Please see procedure report for additional information. Electronically kim d by: Jose Cruz Doss MD 05/07/2024 02:42 PM EDT RP Dictated By: Jose Cruz Doss MD Signed By: <Electronically signed by Jose Cruz Doss MD in OV> 05/07/24 1442 DD/ 1230 TD/TT: 05/07/24 1350 Operations Research Director: Basic Metabolic Panel Reviewed date:06/02/2024 10:00:22 AM Interpretation: Performing Lab:[facility], [address] [place] [phone] Notes/Report: Sodium 140 135-145 mmol/L Potassium 4.0 3.3-5.1 mmol/L Chloride 112 96-108 mmol/L Carbon Dioxide 23 22-29 mmol/L Anion Gap 9 12-20 Blood Urea Nitrogen 20 9-16 mg/dL Creatinine 1.83 0.5-1.4 mg/dL Estimated Glomerular Filt Rate 36 Chronic Kidney Disease: Estimated GFR < 60 mL/min/1.73m2 Severe Kidney Disease: Estimated GFR < 15 mL/min/1.73m2 Glucose Random 104 60-115 mg/dL Calcium 9.2 8.4-10.2 mg/dL XR KUB Reviewed date:06/03/2024 12:20:03 PM Interpretation: Performing Lab: Notes/Report: [address] [address] XRay Report Signed Patient: Erasmo Quevedo MR#: [id number] 70 : 1945 Acct:[id number] Age/Sex: 79 / M ADM Date: 05/31/24 Loc: [facility] Attending Dr: Mau Hodge MD Ordering Physician: Kuldip Ibarra MD Date of Service: 05/31/24 Procedure(s): XR KUB Accession Number(s): [id number] cc: Kuldip Ibarra MD; Moris Yu MD EXAMINATION: XR ABDOMEN 1 VIEW (KUB) HISTORY: N13.30 - Unspecified hydronephrosis COMPARISON: Comparison is made with the prior examination dated 02/15/2024. FINDINGS: Two supine views of the abdomen are submitted. The bowel gas pattern is unremarkable, without evidence of mechanical obstruction. A right nephroureteral stent is seen in place. Multiple calcifications are seen overlying both renal shadows. Additional calcifications to the right of the spine at the L3 level are again noted. Many of these calcifications were shown to be within the mesenteric fat on prior CT 04/03/2024. There are no abnormal soft tissue masses. There is degenerative disc disease of the spine. XR/XR KUB IMPRESSION: Right nephroureteral stent in place. Bilateral nephrolithiasis. Electronically signed by: Jose Cruz Doss MD 06/03/2024 10:07 AM EDT Dictated By: Jose Cruz Doss MD Signed By: <Electronically signed by Jose Cruz Doss MD in OV> 06/03/24 1007 DD/ 1217 TD/TT: 05/31/24 1230 Operations Research Director: [address] [address] XRay Report Signed Patient: Chris Quevedo MR#: [id number] 70 : 1945 Acct:[id number] Age/Sex: 79 / M ADM Date: 05/31/24 Loc: HO.XRAY Attending Dr: Mau Hodge MD Ordering Physician: Kuldip Ibarra MD Date of Service: 05/31/24 Procedure(s): XR KUB Accession Number(s): [id number] cc: Leonardo Ibarra MD; Moris Yu MD EXAMINATION: XR ABDO MEN 1 VIEW (KUB) HISTORY: N13.30 - Unspecified hydronephrosis COMPARISON: Comparis on is made with the prior examination dated 02/15/2024. FINDINGS: Two supine views of the abdomen are submitted. The bowel gas pattern is unremarkable, without evidence of mechanical obstruction. A right nephroureteral stent is seen in place. Multiple calcifications are s een overlying both renal shadows. Additional calcifications to th e right of the spine at the L3 level are again noted. Many of these calcifications were shown to be within the mesenteric fat on pr ior CT 04/03/2024. There are no abnormal soft tissue masses. There is degenerative disc disease of the spine. X R/XR KUB IMPRESSION: Right nephroureteral stent in place. Bilateral nephrolithiasis. Electronically kim d by: Jose Cruz Doss MD 06/03/2024 10:07 AM EDT RP Dictated By: Jose Cruz Doss MD Signed By: <Electronically signed by Jose Cruz Doss MD in OV> 06/03/24 1007 DD/ 1217 TD/TT: 05/31/24 1230 Operations Research Director: IA upper GI w air Reviewed date:06/03/2024 12:49:02 PM Interpretation: Performing Lab: Notes/Report: [address] [address] Fluoroscopy Report Signed Patient: Erasmo Quevedo MR#: [id number] 70 : 1945 Acct:[id number] Age/Sex: 79 / M ADM Date: 06/03/24 Loc: HO.XRAY Attending Dr: Moris Yu MD Ordering Physician: Moris Yu MD Date of Service: 06/03/24 Procedure(s): FL upper GI w air Accession Number(s): [id number] cc: Moris Yu MD EXAMINATION: XR FLUOROSCOPY UPPER GI WITH AIR CLINICAL INFORMATION: Thickened focal posterior wall thickening of the gastric fundus. COMPARISON: CT abdomen and pelvis 04/04/2024. TECHNIQUE: Routine upper GI air contrast study was performed. FINDINGS: Following oral administration of thick barium and effervescent granules is normal bolus from the oral cavity through the pharynx, esophagus into stomach without any obstruction, narrowing or stricture. There is mild pooling of barium in in piriform sinuses and valleculae which clears with subsequent dry swallowing. There is no extrinsic compression. On placing patient in supine and prone lying position the course, caliber and peristalsis of the stomach, duodenal bulb and sweep is normal. There is moderate gastroesophageal reflux with small sliding hiatal hernia.. Incidental note is made of a right internal ureteral stent. There are multiple bilateral parahilar small calcifications and/or calcified nodules. Likely scarring in both upper and lower lobes. FLUOROSCOPY TIME: 2 minutes 15 seconds DOSE AREA PRODUCT: 2334 uGy-m2 (microgray-meter squared) FL/FL upper GI w air IMPRESSION: Small sliding hiatal hernia with moderate gastroesophageal reflux. Electronically signed by: Gilmer Munoz MD 06/03/2024 11:33 AM EDT Dictated By: Gilmer Munoz MD Signed By: <Electronically signed by Gilmer Munoz MD in OV> 06/03/24 1133 DD/ 0745 TD/TT: 06/03/24 0820 Operations Research Director: [address] [address] Fluoroscopy Report Signed Patient: Chris Quevedo MR#: [id number] 70 : 1945 Acct:[id number] Age/Sex: 79 / M ADM Date: 06/03/24 Loc: HO.XRAY Attending Dr: Moris Yu MD Ordering Physician: Moris Yu MD Date of Service: 06/03/24 Procedure(s): FL upp er GI w air Accession Number(s): [id number] cc: Moris Yu MD EXAMINATION: XR FLUOROSCOPY UPPER GI WITH AIR CLINICAL INFORMATION: Thickened focal posterior wall thickening of the gastric fundus. COMPARISON: CT abdomen and pelvi s 04/04/2024. TECHNIQUE: Routine upper GI air contrast study was performed. FINDINGS: Following oral administration of thick barium and effervescent granules is normal bolus from the oral cavity through the pharynx, esophagus into stomach without any obstruction, narrowing or stricture. There is mild pooling of cy um in in piriform sinuses and valleculae which clears with subseque nt dry swallowing. There is no extrinsic compression. On placing patient i n supine and prone lying position the course, caliber and peristal sis of the stomach, duodenal bulb and sweep is normal. There is moderate gastroesophageal reflux with small sliding hiatal hernia.. Incidental note is m irineo of a right internal ureteral stent. There are multiple bilateral parahilar small calcifications and/or calcified nodules. Likely scar ring in both upper and lower lobes. FLUOROSCOPY TIME: 2 minutes 15 seconds DOSE AREA PRODUCT: 2334 uGy-m2 (microgray-meter squared) F L/FL upper GI w air IMPRESSION: Small sliding hiatal hernia with moderate gastroesophageal reflux. Electronically kim d by: Gilmer Munoz MD 06/03/2024 11:33 AM EDT Dictated By: Mr christi Munoz MD Signed By: <Electronically signed by Gilmer Munoz MD in OV> 06/03/24 1133 DD/ 0745 TD/TT: 06/03/24 0820 Operations Research Director: ENRIQUE Reason For Referral No Information Medications Medication SIG (Take, Route, Frequency, Duration) Notes Start Date End Date Status Potassium Citrate ER 10 MEQ (1080 MG) 1 tablet with meals Orally Twice a day Active Xelpros 0.005 % 1 null into affected eye in the evening Ophthalmic Once a day Active Dymista 137-50 MCG/ACT 1 puff in each no stril Nasally Twice a day Not-Taking Allopurinol 100 MG 1 tablet Orally Once a day for 30 day(s) Active Escitalopram Oxalate 10 MG 1 tablet Orally Once a day for 30 day(s) 07/08/2022 Not-Taking Naproxen 250 MG 1 tablet with food o r milk Orally Twice a day for 30 day(s) Not-Taking Dulera 100-5 MCG/ACT 2 puffs Inhalation Twice a day Active Losartan Potassium 25 MG 1 tablet Orally Once a day for 30 day(s) Not-Taking Alphagan P 0.1 % 1 drop into affected eye Ophthalmic every 8 hrs Not-Taking Spiriva Respimat 2.5 MCG/ACT 2 puffs Inhalation Once a day Active Bisoprolol Fumarate 5 MG 1 tablet Orally Once a day for 30 day(s) Not-Taking Albuterol Sulfate 0.63 MG/3ML 3 ml as needed Inhalation Three times a day for 90 days 10/23/2014 Not-Taking Montelukast Sodium 10 mg TAKE 1 TABLET D AILY IN THE EVENING Active Multaq 400 MG 1 tablet with meals Orally Twice a day for 30 day(s) Active Prevagen 10 MG as directed Orally Not-Taking Cialis 10 MG 1 tablet Orally for 30 day(s) Not-Taking Eliquis 5 MG 1 tablet Orally Twic e a day Active Finasteride 5 MG 1 tablet Orally Once a day for 30 day(s) Active Doxycycline Hyclate 100 MG 1 capsule Orally Once a day for 10 day(s) Not-Taking Ventolin HFA 108 2 puffs as needed Inhalation every 4 hrs Not-Ashvin stanford Atorvastatin Calcium 80 MG take 1 tablet daily Orally Once a day Active Omeprazole 20 MG TAKE 1 CAPSULE DAILY Orally Once a day for 90 days Not-Taking Albuterol Sulfate HFA 108 (90 Base) MCG/ACT 1 puff as needed Inhalation every 4 hrs 07/09/2021 Not-Takin g Budesonide (Inhalation) once a day, QOD Not-Taking Immunizations Vaccine Route Administration Date Status Comme nts Flu Vaccine Unknown 12/17/2010 Administered Shingles Unknown 06/30/2009 Administered Prevnar 13 Unknown 01/13/2012 Administered Flu Vaccine Unknown 12/07/2011 Administered given at [facility] Flu Vaccine Unknown 11/18/2012 Administered received at [facility] PPSV23 (Pnemovax) IM Intramuscular 09/19/2013 Administered Flu Vaccine Unknown 12/03/2013 Administered was given b [facility] Flu Vaccine Unknown 11/27/2014 Administered Given by wi [facility] TDaP IM Intramuscular 02/10/2015 Administered Fluarix Quadrivalent [...] [facility] Influenza High Dose Unknown 11/29/2021 Administered Social History Tobacco Use: Social History Observation [...] ast year? No Points 0 Interpretation Negative Problems Problem Type SNOMED Code ICD Code Onset Dates Problem Status W/U Status Risk Notes Problem Erectile dysfunction (628284688) Erectile Dysfunction (607.84) Active confirmed Problem 990576856 Thrombocytopenia (D69.6) Active confirmed Problem 301750320 Paroxysmal atria l fibrillation (I48.0) Active confirmed Problem 445284193 Tubular adenoma of colon (D12.6) Active confirmed Problem 911651447 History of coron shaquille artery disease (Z86.79) Active confirmed Problem 11041890 Sarcoidosis (D86.9) Active confirmed Problem 27169146 Dysthymia (F34.1) Active confirmed Problem 718689534 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) Active confirmed Problem 841490392 Pure hypercholesterolemia (E78.00) Active confirmed Problem Hypercholesterolemia (75078688) Hypercholesterolemia (E78.00) Active confirmed Problem 513176975 BMI 32.0-32.9,ad ult (Z68.32) Active confirmed Problem 940058555 Moderate asthma without complication, unspecified whether persistent (J45.909) Active confirmed Problem 66082475 Chronic congesti ve heart failure, unspecified heart failure type (I50.9) Active confirmed Problem 368085968 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) Active confirmed Problem 560769889 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 confirmed Problem Hypersomnia (12332312) Hypersomnolence (G47.10) Active confirmed Problem 07900398 Other ventricula r tachycardia (I47.29) Active confirmed Problem 971611083 Acute constipati on (K59.00) Active confirmed Vital Signs Blood pressure diastolic 50 mm Hg 03/08/2024 viktor ght is up 8 pounds since 09-25-23 Height 70 in 03/08/2024 weight is up 8 pounds since 09-25-23 Blood pressure systolic 94 mm Hg 03/08/2024 weig ht is up 8 pounds since 09-25-23 Weight 222 lbs 03/08/2024 weight is up 8 pounds since 09-25-23 BMI 31.85 kg/m2 03/08/2024 weight is up 8 pounds since 09-25-23 Encounters Encounter Location Date Provider Diagnosis Moris Yu MD [address] [place] [address] [id number] 07/14/2023 Moris Yu Pure hypercholestero lemia E78.00 Moris Yu MD [address] [place] [address] [id number] 09/11/2023 Moris Yu Paroxysmal atrial fibrillation I48.0 and Gross hematuria R31.0 Moris Yu MD [address] [place] [address] [id number] 03/01/2024 Moris Yu Pure hypercholestero lemia E78.00 ; Thrombocytopenia D69.6 and Chronic congestive heart failure, unspecified heart failure type I50.9 Moris uY MD [address] [place] [address] [id number] 07/20/2023 Moris Yu Chronic congestive h eart failure, unspecified heart failure type I50.9 ; Hypercholesterolemia E78.00 ; Nonsustained ventricular tachycardia I47.2 and Other ventricular tachycardia I47.29 Moris Yu MD [address] [place] [address] [id number] 08/29/2023 Moris Yu Acute pneumonia J18. 9 ; Thrombocytopenia D69.6 ; Elevated serum creatinine R79.89 ; Lower extremity edema R60.0 ; Gross hematuria R31.0 and Dental abscess K04.7 Moris Yu MD [address] [place] [address] [id number] 09/14/2023 Moris Yu Dysuria R30.0 ; Acut e diarrhea R19.7 and Acute constipation K59.00 Moris Yu MD [address] [place] [address] [id number] 09/25/2023 Moris Yu Status post insertio n of drug eluting coronary artery stent Z95.5 ; Paroxysmal atrial fibrillation I48.0 and Chronic congestive heart failure, unspecified heart failure type I50.9 Moris Yu MD [address] [place] [address] [id number] 03/08/2024 Moris Yu Gross hematuria R31. 0 ; Paroxysmal atrial fibrillation I48.0 ; Sarcoidosis D86.9 ; Status post insertion of drug eluting coronary artery stent Z95.5 ; Pure hypercholesterolemia E78.00 ; Chronic congestive heart failure, unspecified heart failure type I50.9 ; Moderate asthma without complication, unspecified whether persistent J45.909 ; Colon cancer screening Z12.11 and Depression screening Z13.31 Moris Yu MD [address] [place] [address] [id number] 08/28/2023 Moris Yu MD [address] [place] [address] [id number] 09/08/2023 Moris Yu MD [address] [place] [address] [id number] 09/08/2023 Moris Yu MD [address] [place] [address] [id number] 09/19/2023 Moris Yu MD [address] [place], [place] [id number] 04/05/2024 Moris Yu Abnormal computed tomography of abdomen and pelvis R93.5 Assessments Encounter Date Diagnosis (ICD Code) Assessment Notes Treatment Notes Treatment Clinical Notes Section Notes 07/14/2023 Pure hypercholesterolemia (ICD-10 - E78.00) 09/11/2023 Paroxysmal atrial fibrillation (ICD-10 - I48.0) knows that there is a risk but choses not to do any blood thinner. 09/11/2023 Gross hematuria (ICD -10 - R31.0) has not had any more. 03/01/2024 Pure hypercholesterolemia (ICD-10 - E78.00) 03/01/2024 Thrombocytopenia (ICD-10 - D69.6) 07/20/2023 Chronic congestive heart failure, unspecified heart failure type (ICD-10 - I50.9) need results from recent echo/ is always tired and short of breath. not doing any type of activity. conditioning deteriorating 07/20/2023 Hypercholesterolemia (ICD-10 - E78.00) doing well on meds, will continue curent regiment 08/29/2023 Acute pneumonia (ICD -10 - J18.9) order given to patient 08/29/2023 Thrombocytopenia (ICD-10 - D69.6) is getting repeat blood work 09/14/2023 Dysuria (ICD-10 - R30.0) 09/14/2023 Acute diarrhea (ICD- 10 - R19.7) after taking laxatives, is now having diarrhea. will observe 09/25/2023 Status post insertio n of drug eluting coronary artery stent (ICD-10 - Z95.5) no chest pain, Total time spent on the date of the encounter is 35 minutes including both face to face time spent and time spent reviewing documentation, and counseling the patient. 09/25/2023 Paroxysmal atrial fibrillation (ICD-10 - I48.0) going to get ecg this week 03/08/2024 Gross hematuria (ICD -10 - R31.0) having evaluation at urology. has kidney stones 03/08/2024 Paroxysmal atrial fibrillation (ICD-10 - I48.0) stable, will continue current regiment 04/05/2024 Abnormal computed tomography of abdomen and pelvis (ICD-10 - R93.5) 03/01/2024 Chronic congestive heart failure, unspecified heart failure type (ICD-10 - I50.9) 07/20/2023 Nonsustained ventricular tachycardia (ICD-10 - I47.2) had holter that showed nsvt and no treatment advised by cardiology 08/29/2023 Elevated serum creatinine (ICD-10 - R79.89) repeating blood work 09/14/2023 Acute constipation (ICD-10 - K59.00) at present after taking laxatives, is cleaned out and not being bothered as much 09/25/2023 Chronic congestive heart failure, unspecified heart failure type (ICD-10 - I50.9) stable with no evidence of recurrence 03/08/2024 Sarcoidosis (ICD-10 - D86.9) doing well with no problems 07/20/2023 Other ventricular tachycardia (ICD-10 - I47.29) 08/29/2023 Lower extremity lc a (ICD-10 - R60.0) 03/08/2024 Status post insertio n of drug eluting coronary artery stent (ICD-10 - Z95.5) no chest pain 08/29/2023 Gross hematuria (ICD -10 - R31.0) will hold the xarelto for now. there is a risk of clots and stroke but less than the bleeding risk 03/08/2024 Pure hypercholesterolemia (ICD-10 - E78.00) stable, will continue current regiment 08/29/2023 Dental abscess (ICD- 10 - K04.7) going back to dentist 03/08/2024 Chronic congestive heart failure, unspecified heart failure type (ICD-10 - I50.9) stable, will continue to monitor 03/08/2024 Moderate asthma with out complication, unspecified whether persistent (ICD-10 - J45.909) doing well, will continue curet regiment 03/08/2024 Colon cancer screeni ng (ICD-10 - Z12.11) guaiac negative 03/08/2024 Depression screening (ICD-10 - Z13.31) negative screen Plan Of Treatment Pending Test Test Name Order Date Electrocardiogram (EKG) 10/21/2016 CT BRAIN W&WO CONTRAST 07/08/2022 XR CHEST 2 VIEW PA & LAT 11/07/2016 XR CHEST 2 VIEW PA & LAT 05/17/2011 XR CHEST 2 VIEW PA & LAT 09/07/2015 XR GI SERIES 01/18/2013 XR GI SERIES 04/05/2024 CT head/brain wo con 07/28/2022 Future Test Test Name Order Date XR CHEST 2 VIEW PA & LAT 09/05/2023 Next Appt Details Provider Name:Moris Wiggins ier, 09/06/2024 08:00:00 AM, [address] [place] [address], [address], [place], [place], [phone], Provider Name:Moris Wiggins ier, 09/13/2024 02:00:00 PM, [address] [place] [address], [address], [place], [phone], Provider Name:Moris Wiggins ier, 03/06/2025 08:00:00 AM, [address] [place] [address], [address], [place], [phone], Provider Name:Moris Wiggins ier, 03/13/2025 02:30:00 PM, [address] [place] [address], [address], [place], [phone], Insurance Providers Payer Name Payer Address Payer Phone Subscriber Number Group Number Insured Name Patient Relationship to Insured Coverage Start Date Coverage End Date [employer] [address] [place] [address] [id number] Sae Erasmo Self - patient is the insured [address] [address] [id number] Erasmo Quevedo Self - patient is the insured Medical (General) History Medical History History ICD Code colonoscopy - 04/2006 - repea t 5 years. 07/27/12; colonoscopy 05/14/2013 - repeat 5 years; Colonoscopy done 11/19/[address] Srivastava - no further testing indicated. Achilles bursitis or tendinitis HX of Kidney Stones Incidental Lung Nodule
== END 2024-06-10 13:00 | disposition home or self-care (01) ==
PROVIDERS: PCP Internal Medicine; Visit Provider Urology
DX: N20.0 Calculus of kidney (principal); N40.1 Benign prostatic hyperplasia with lower urinary tract symptoms; N18.9 Chronic kidney disease, unspecified; Z96.0 Presence of urogenital implants
CPT/HCPCS: 99213; G2211

== ENCOUNTER → 2024-06-10 09:38 | Outpatient (BNVA) | payer MEDICARE, OTHER, SELFPAY | PROVIDERS: PCP Internal Medicine; Visit Provider Urology ==

== ENCOUNTER → 2024-06-11 09:48 | Outpatient (REF) | payer MEDICARE, OTHER, SELFPAY ==
--- NOTE | 2024-06-11 09:51 | CA_ITS ---
Transthoracic Echocardiogram Patient (Last, First, Middle): Erasmo Quevedo B Gender: Male Date of : 1945 Age: 79 Procedure Date: 06/11/2024 Procedure Type: Transthoracic Echocardiogram Location: OP Height: 177. cm Weight: 97.07 kg BSA: 2.14 m2 Heart Rate: bpm BP: 100 / 60 mmHg Crop Duster Helper: JACKLYN Lazo MD: Nuzhat Farrell NP-Erica Lead Advisor: Joon Hopper MD Symptoms: I35.0 - Nonrheumatic aortic (valve) stenosis Study Quality: Adequate ECG Rhythm: Sinus Conclusions: - 1. Mildly dilated LV with vary-hg-yeenswvz LV systolic dysfunction with LVEF of 40-45% 2. Paradoxical low-flow moderate aortic stenosis 3. Upper limits of normal ascending aortic size 4. No gross pericardial effusion Findings Left Ventricle Mildly increased left ventricular cavity size. There is normal left ventricular wall thickness. The left ventricular systolic function is mild to moderately decreased. The visually estimated ejection fraction is between 40-45%. Spectral Doppler is indicative of an impaired relaxation filling pattern. E/E prime ratio is between 8 and 15 consistent with indeterminate filling pressures. Right Ventricle Normal right ventricular cavity size. There is borderline right ventricular systolic function. Atria The left atrium is likely dilated. Interatrial shunt cannot be excluded. The right atrium is normal in size. Aortic Valve There is moderate calcification of the aortic valve. There is moderate thickening of the aortic valve. There is moderate aortic valve stenosis. The mean gradient is 11 mmHg. The aortic valve area is 1.28 cm2. There is mild aortic valve regurgitation. Mitral Valve There is mild anterior and posterior mitral leaflet thickening. There is mild anterior and mild posterior mitral annular calcification. There is mild mitral valve regurgitation. There is no mitral valve stenosis. Pulmonic Valve The pulmonic valve was not well visualized. Tricuspid Valve The tricuspid valve was not well visualized. Tricuspid regurgitation envelope is inadequate for calculation of right ventricular systolic pressure. Normal right atrial pressure. Great Vessels The pulmonary artery was not well visualized. Venous The inferior vena cava is normal in size. Pericardium/Pleural There is no evidence of pericardial effusion. Prior Study Comparison Changes noted compared to prior study dated: 01/25/2023. paradoxical low flow moderate aortic stenosis noted Measurements 2D Linear Measurements IVSd: 1.00 0.6-0.9/0.6-1.0 cm LVIDd: 6.25 3.9-5.3/4.2-5.9 cm LVIDd Index: 2.92 2.4-3.2/2.2-3.1 cm/m2 LVIDs: 4.60 2.0-3.6 cm LVPWd: 0.97 0.7-1.1 cm LA Diam: 4.60 2.7-3.8/3.0-4.0 cm LAIDs Index: 2.15 1.5-2.3 cm/m2 LV Mass: 322.67 67-162/88-224 g LV Mass Index: 150.78 43-95/49-115 g/m2 LVOT Diam: 2.40 3.0+(-)1.3 cm 2D Systolic Function EF 4C: 40.80 >55% EF 2C: 44.50 >55% EF BiP: 43.70 >55% Mitral Valve MV Pk E: 0.47 MV PK A: 0.64 MV Decel Time: 273.00 E/A: 0.70 E'Lateral: 5.44 E'Medial: 3.59 E/E' Med: 13.00 E/E' Lat: 8.60 PHT: 80.00 MVA PHT: 2.75 Decel Stafford: 1.71 Aortic Valve AoV Pk John: 2.16 AoV Mn John: 1.59 AoV VTI: 0.46 AoV Pk Grad: 19.00 Aov Mn Grad: 11.00 NATHALIE Cont.VTI: 1.28 LVOT LVOT Pk John: 0.66 LVOT Mn John: 0.49 LVOT VTI: 0.14 LVOT Pk Grad: 2.00 LVOT Mn Grad: 1.00 LVOT Diam: 2.40 LVOT Area: 4.52 Diastolic Function MV Pk E: 0.47 MV Pk A: 0.64 E/A: 0.70 E'Medial: 3.59 E/E' Med: 13.00 E' Laterial: 5.44 E/E' Lat: 8.60 Right Ventricle TAPSE (mm): 17.50 TVS' John: 11.10 Tricuspid Valve TR Pk John: 1.35 TR Pk Grad: 7.00 Great Vessels Aorta Sinus of Valsalva: 3.50 2.0-3.5 cm Ao Asc: 3.60 2.1-3.4 cm Ao Arch: 3.20 Pulmonary Valve PV Pk John: 1.00 Peak PV Grad: 4.00 Updated in Other Vendor System with Status of Final Joon Hopper MD electronically signed on 06/11/2024 1:01:32 PM with status of Final
--- OUTSIDE RECORDS SUMMARY | 2024-06-11 11:15 | XMS_ITS ---
Author Organization Moris Yu MD Address [address] [place] [phone] Care Team Providers Care Welfare Director Name Role Phone Moris Yu Primary Care Provider REASON FOR VISIT UGI orders Encounters Encounter Location Date Provider Diagnosis Moris Yu MD [address] [place] [address] [place] [phone] 04/05/2024 Moris Yu Abnormal computed tomography of abdomen and pelvis R93.5 Assessments Encounter Date Diagnosis (ICD Code) Assessment Notes Treatment Notes Treatment Clinical Notes Section Notes 04/05/2024 Abnormal computed tomography of abdomen and pelvis (ICD-10 - R93.5) Plan Of Treatment Pending Test Test Name Order Date XR GI SERIES 04/05/2024 Next Appt Details Provider Name:Moris delgadillo, 09/06/2024 08:00:00 AM, [address] [place] [address], [address], [phone], Provider Name:Moris delgadillo, 09/13/2024 02:00:00 PM, [address] [place] [address], [address], [phone], Provider Name:Moris delgadillo, 03/06/2025 08:00:00 AM, [address] [place] [address], [address], [phone], Provider Name:Moris delgadillo, 03/13/2025 02:30:00 PM, [address] [place] [address], [address], [phone], Progress Notes * Erasmo QUEVEDOOB: 6 (78 yo M)Acc No.[id number]:04/05/2024 Patient:?Erasmo QUEVEDO :1945???Age:78 Y???Sex:Male Address:[address] [id number] Subjective: * Chief Complaints: * ???UGI orders * Medical History:? * Surgical History:? * Hospitalization/Major Diagno stic Procedure:? * Medications:? Objective: * Vitals:? * Physical Examination:? Assessment: * Assessment: 1.?Abnormal computed tomogra phy of abdomen and pelvis - R93.5??? Plan: * Treatment: * Procedure Codes:? * true * Date:? Generated for Marie vázquez/Jacob/eTransmitting on:?06/11/2024 11:15 AM EDT
--- OUTSIDE RECORDS SUMMARY | 2024-06-11 11:16 | XMS_ITS | Patient Health Record ---
Author Organization Moris Yu MD Address [address] [place] [phone] Care Team Providers Care Stump Shooter Name Role Phone Moris Yu Primary Care Provider [phone] Allergies Allergen (clinical drug ingredient) Drug/Non Drug [...] Panel Reviewed date:07/14/2023 08:11:47 PM Interpretation: Performing Lab:[address] [address] Notes/Report: Bilirubin Total 1.0 0.0-1.0 mg/dL Bilirubin Direct 0.4 0.0-0.5 mg/dL Aspartate Amino Transferase 23 5-37 U/L Alanine Aminotransferase 20 0-40 U/L Total Protein 7.5 6.5-8.0 g/dL Albumin Level 3.8 3.5-5.0 g/dL Alkaline Phosphatase 63 39-117 U/L Lipid Panel with Reflex Reviewed date:07/14/2023 08:11:57 PM Interpretation: Performing Lab:[address] [address] Notes/Report: Triglycerides 97 <150 mg/dL Desirable Triglyceride: [...] ff Reviewed date:03/01/2024 11:46:39 AM Interpretation: Performing Lab:[facility], [address] [place] [phone] Notes/Report: White Blood Count 5.6 4.8-10.8 X10*3/uL [...] NRBC Abs Auto 0.000 0.0-0.012 X10*3/uL Comprehensive [place]. Panel Fa st Reviewed date:03/01/2024 12:19:08 PM Interpretation: Performing Lab:[facility], [address] [place] [phone] Notes/Report: Sodium 141 135-145 mmol/L Potassium 4.4 [...] Panel Reviewed date:03/01/2024 12:18:48 PM Interpretation: Performing Lab:[facility], [address] [place] [phone] Notes/Report: Triglycerides 76 <150 mg/dL Desirable Triglyceride: [...] (Free>4and<10) Reviewed date:03/01/2024 12:19:16 PM Interpretation: Performing Lab:[address] [address] Notes/Report: PSA,Total (Free>4and<10) 0.20 0.00-4.00 ng/mL A [...] Reviewed date:03/08/2024 11:48:58 AM Interpretation:BETSY 03/08/24 Performing Lab:[address] [address] Notes/Report: Urine, Clean Catch Color Urine Yellow Appearance Urine Hazy PH 6.0 5.0-9.0 Glucose Urine UA Negative Negative mg/dL Urine Blood Large (3+) Negative Specific [place] - Urine 1.020 1.005-1.025 Urine Protein Trace [...] date:06/25/2023 05:49:35 PM Interpretation: Performing Lab: Notes/Report: [address] [address] [address] Scan Report Signed Patient: Erasmo Quevedo MR#: [id number] 70 : 1945 Acct:[id number] Age/Sex: 78 / M ADM Date: 06/19/23 Loc: .CT Attending Dr: Sebastian Patricia MD Ordering Physician: Sebastian Patricia MD Date of Service: 06/19/23 Procedure(s): CT chest wo IV con Accession Number(s): [id number] cc: Moris Yu MD; Sebastian Patricia MD [...] in OV> 06/24/23 1154 DD/ 1042 TD/TT: Crm Coordinator: SLOANE [address] [address] [address] Scan Report Signed Patient: Chris Quevedo MR#: [id number] 70 : 1945 Acct:[id number] Age/Sex: 78 / M ADM Date: 06/19/23 Loc: HO.CT Attending Dr: Sebastian Patricia MD Ordering Physician: Sebastian Patricia MD Date of Service: 06/19/23 Procedure(s): CT bunny st wo IV con Accession Number(s): [id number] cc: Moris Yu MD; Sebastian Patricia MD [...] in OV> 06/24/23 1154 DD/ 1042 TD/TT: Service Clerk ist: SS Hold Gold Reviewed date:07/14/2023 08:13:36 PM Interpretation: Performing Lab:[facility], [address] [place] [phone] Notes/Report: Ebenezer Gold See Note Specimen held untested for 24 hours; Call to request Chemistry testing. Glucose, Whole Blood Reviewed date:08/21/2023 06:52:52 AM Interpretation: Performing Lab:[facility], [address] [place] [phone] Notes/Report: Glucose, Whole Blood 117 60-115 mg/dL METER # : [id number] Urine Culture Reviewed date:08/22/2023 12:41:19 PM Interpretation: Performing Lab:[facility], [address] [place] [phone] Notes/Report: Urine Culture No growth. UA ClnCatch+Micro w/rflx Cul t Reviewed date:08/22/2023 04:59:33 PM Interpretation: Performing Lab:[facility], [address] [place] [phone] Notes/Report: Urine, Catheterized Color Urine Dark Yellow Appearance Urine Cloudy PH 6.5 5.0-9.0 Glucose Urine UA Negative Negative mg/dL Urine Blood Large (3+) Negative Specific [place] - Urine 1.025 1.005-1.025 Urine Protein Trace [...] date:08/21/2023 06:49:40 AM Interpretation: Performing Lab: Notes/Report: [address] [address] [address] Scan Report Signed Patient: Erasmo Quevedo MR#: [id number] 70 : 1945 Acct:[id number] Age/Sex: 78 / M ADM Date: 08/20/23 Loc: HO.ED Attending Dr: Ordering Physician: Mercedes Gonzales Date of Service: 08/20/23 Procedure(s): CT soft tissue neck w IV con Accession Number(s): [id number] cc: Moris Yu MD; Mercedes Gonzales EXAMINATION: [...] Klein in OV> 08/20/232051 DD/ 30 TD/TT: Crm Coordinator: [place] [address] [address] Scan Report Signed Patient: Chris Quevedo MR#: [id number] 70 : 1945 Acct:[id number] Age/Sex: 78 / M ADM Date: 08/20/23 Loc: HO.ED Attending Dr: Ordering Physician: Mercedes Gonzales Date of Service: 08/20/23 Procedure(s): CT sof t tissue neck w IV con Accession Number(s): [id number] cc: Moris Yu MD; Mercedes Gonzales EXAMINATION: [...] Klein in OV> 08/20/232051 DD/ 30 TD/TT: Crm Coordinator: CT head/brain wo con Reviewed date:08/21/2023 06:50:20 AM Interpretation: Performing Lab: Notes/Report: [address] [address] [address] Scan Report Signed Patient: Erasmo Quevedo MR#: [id number] 70 : 1945 Acct:[id number] Age/Sex: 78 / M ADM Date: 08/20/23 Loc: HO.ED Attending Dr: Ordering Physician: Mercedes Gonzales Date of Service: 08/20/23 Procedure(s): CT head/brain wo IV con Accession Number(s): [id number] cc: Moris Yu MD; Mercedes Gonzales EXAMINATION: [...] Klein in OV> 08/20/232036 DD/ 29 TD/TT: Crm Coordinator: [address] [address] [address] Scan Report Signed Patient: Chris Quevedo MR#: [id number] 70 : 1945 Acct:[id number] Age/Sex: 78 / M ADM Date: 08/20/23 Loc: HO.ED Attending Dr: Ordering Physician: Mercedes Gonzales Date of Service: 08/20/23 Procedure(s): CT head/brain wo IV con Accession Number(s): [id number] cc: Moris Yu MD; Mercedes Gonzales EXAMINATION: [...] Klein in OV> 08/20/232036 DD/ 29 TD/TT: Crm Coordinator: CT facial bones wo con Reviewed date:08/21/2023 06:51:02 AM Interpretation: Performing Lab: Notes/Report: [address] [address] [address] Scan Report Signed Patient: Erasmo Quevedo MR#: [id number] 70 : 1945 Acct:[id number] Age/Sex: 78 / M ADM Date: 08/20/23 Loc: HO.ED Attending Dr: Ordering Physician: Mercedes Gonzales Date of Service: 08/20/23 Procedure(s): CT facial bones wo IV con Accession Number(s): [id number] cc: Moris Yu MD; Mercedes Gonzales EXAMINATION: [...] MD in OV> 08/20/232302 DD/ 42 TD/TT: Crm Coordinator: [address] [address] [address] Scan Report Signed Patient: Chris Quevedo MR#: [id number] 70 : 1945 Acct:[id number] Age/Sex: 78 / M ADM Date: 08/20/23 Loc: HO.ED Attending Dr: Ordering Physician: Mercedes Gonzales Date of Service: 08/20/23 Procedure(s): CT fac ial bones wo IV con Accession Number(s): [id number] cc: Moris Yu MD; Mercedes Gonzales EXAMINATION: [...] MD in OV> 08/20/232302 DD/ 42 TD/TT: Crm Coordinator: US abdomen limited Reviewed date:08/21/2023 06:51:42 AM Interpretation: Performing Lab: Notes/Report: [address] [address] Ultrasound Report Signed Patient: Erasmo Quevedo MR#: [id number] 70 : 1945 Acct:[id number] Age/Sex: 78 / M ADM Date: 08/20/23 Loc: HO.ED Attending Dr: Ordering Physician: Mercedes Gonzales Date of Service: 08/20/23 Procedure(s): US abdomen limited Accession Number(s): [id number] cc: Moris Yu MD; Mercedes Gonzales EXAMINATION: [...] Klein in OV> 08/20/232006 DD/ 99 TD/TT: Crm Coordinator: [address] [address] Ultrasound Report Signed Patient: Chris Quevedo MR#: [id number] 70 : 1945 Acct:[id number] Age/Sex: 78 / M ADM Date: 08/20/23 Loc: HO.ED Attending Dr: Ordering Physician: Mercedes Gonzales Date of Service: 08/20/23 Procedure(s): US abd omen limited Accession Number(s): [id number] cc: Moris Yu MD; Mercedes Gonzales EXAMINATION: [...] Klein in OV> 08/20/232006 DD/ 99 TD/TT: Crm Coordinator: XR chest 1V Reviewed date:08/21/2023 06:52:43 AM Interpretation: Performing Lab: Notes/Report: [address] [address] XRay Report Signed Patient: Erasmo Quevedo MR#: [id number] 70 : 1945 Acct:[id number] Age/Sex: 78 / M ADM Date: 08/20/23 Loc: HO.ED Attending Dr: Ordering Physician: Mercedes Gonzales Date of Service: 08/20/23 Procedure(s): XR chest 1V Accession Number(s): [id number] cc: Moris Yu MD; Mercedes Gonzales EXAMINATION: [...] MD in OV> 08/20/231931 DD/ 43 TD/TT: Crm Coordinator: [place] [address] XRay Report Signed Patient: Chris Quevedo MR#: [id number] 70 : 1945 Acct:[id number] Age/Sex: 78 / M ADM Date: 08/20/23 Loc: .ED Attending Dr: Ordering Physician: Mercedes Gonzales Date of Service: 08/20/23 Procedure(s): XR bunny st 1V Accession Number(s): [id number] cc: Moris Yu MD; Mercedes Gonzales EXAMINATION: [...] MD in OV> 08/20/231931 DD/ 43 TD/TT: Crm Coordinator: Complete Blood Count no Diff Reviewed date:08/21/2023 05:13:39 PM Interpretation: Performing Lab:[facility], [address] [place] [phone] Notes/Report: White Blood Count 10.3 4.8-10.8 X10*3/uL [...] ff Reviewed date:08/21/2023 06:48:20 AM Interpretation: Performing Lab:[facility], [address] [place] [phone] Notes/Report: White Blood Count 10.0 4.8-10.8 X10*3/uL [...] Panel Reviewed date:08/21/2023 06:52:11 AM Interpretation: Performing Lab:[facility], [address] [place] [phone] Notes/Report: Sodium 138 135-145 mmol/L Potassium 4.3 [...] Estimated Glomerular Filt Rate 47 NOTE: For -Iraqi individuals, multiply the result by 1.210. Chronic [...] Phosphorus Reviewed date:08/21/2023 06:48:29 AM Interpretation: Performing Lab:[facility], [address] [place] [phone] Notes/Report: Phosphorus 2.6 2.7-4.5 mg/dL Magnesium Reviewed date:08/21/2023 06:47:56 AM Interpretation: Performing Lab:[facility], [address] [place] [phone] Notes/Report: Magnesium 1.9 1.6-2.6 mg/dL Venous Blood Gases - POC Reviewed date:08/21/2023 06:47:48 AM Interpretation: Performing Lab:[facility], [address] [place] [phone] Notes/Report: VBG pH 7.40 7.32-7.43 METER #: [id number] additional_comment: Ganga harper lynne henriqueraymondc VBG pCO2 37 METER #: [id number] additional_comment: Ganga harper lynne henriquezc VBG pO2 26 METER #: [id number] additional_comment: Ganga harper lynne henriquezc VBG Base Excess -0.9 METER #: [id number] additional_comment: Ganga harper lynne henriquezc VBG HCO3 23 22-26 mmol/L METER #: [id number] additional_comment: Ganga harper peterbb henriquezc VBG O2 % Saturation 36.0 METER #: [id number] additional_comment: Ganga harper lynne acevesc CDiff Gene PCR Reviewed date:08/22/2023 12:32:10 PM Interpretation: Performing Lab:[facility], [address] [place] [phone] Notes/Report: CALLED ICU 1245 LEAT CDiff Gene PCR NEGATIVE Negative If C. difficile strongly suspected despite one negative test, a second test may be sent vs. empiric treatment for C. difficile infection. Complete Blood Count no Diff Reviewed date:08/22/2023 12:42:16 PM Interpretation: Performing Lab:[facility], [address] [place] [phone] Notes/Report: White Blood Count 8.4 4.8-10.8 X10*3/uL [...] Panel Reviewed date:08/22/2023 12:40:03 PM Interpretation: Performing Lab:[facility], [address] [place] [phone] Notes/Report: Sodium 140 135-145 mmol/L Potassium 3.8 [...] Estimated Glomerular Filt Rate 45 NOTE: For -Iraqi individuals, multiply the result by 1.210. Chronic Kidney Disease: Estimated GFR < 60 mL/min/1.73m2 Severe Kidney Disease: Estimated GFR < 15 mL/min/1.73m2 Glucose Random 92 60-115 mg/dL Calcium 9.2 8.4-10.2 mg/dL Phosphorus Reviewed date:08/22/2023 12:38:52 PM Interpretation: Performing Lab:[facility], [address] [place] [address] Notes/Report: Phosphorus 3.0 2.7-4.5 mg/dL Magnesium Reviewed date:08/22/2023 12:32:17 PM Interpretation: Performing Lab:[facility], [address] [place] [phone] Notes/Report: Magnesium 2.1 1.6-2.6 mg/dL XR chest 1V Reviewed date:08/22/2023 12:39:44 PM Interpretation: Performing Lab: Notes/Report: [address] [place] [address] XRay Report Signed Patient: Erasmo Quevedo MR#: [id number] 70 : 1945 Acct:[id number] Age/Sex: 78 / M ADM Date: 08/21/23 Loc: [facility] 470-[address]: Pat Patricia NP Ordering Physician: Pat Patricia NP Date of Service: 08/22/23 Procedure(s): XR chest 1V Accession Number(s): [id number] cc: Moris Yu MD; Pat Patricia NP [...] in OV> 08/22/23 1152 DD/ 1030 TD/TT: Crm Coordinator: [address] [address] XRay Report Signed Patient: Chris Quevedo MR#: [id number] 70 : 1945 Acct:[id number] Age/Sex: 78 / M ADM Date: 08/21/23 Loc: [facility] 470-[address]: Pat Patricia NP Ordering Physician: Pat Patricia NP Date of Service: 08/22/23 Procedure(s): XR bunny st 1V Accession Number(s): [id number] cc: Moris Yu MD; Pat Patricia NP [...] in OV> 08/22/23 1152 DD/ 1030 TD/TT: Crm Coordinator: Complete Blood Count no Diff Reviewed date:08/23/2023 08:05:06 PM Interpretation: Performing Lab:[facility], [address] [place] [phone] Notes/Report: White Blood Count 7.5 4.8-10.8 X10*3/uL [...] Panel Reviewed date:08/23/2023 08:05:30 PM Interpretation: Performing Lab:[facility], [address] [place] [phone] Notes/Report: Sodium 142 135-145 mmol/L Potassium 3.5 [...] Estimated Glomerular Filt Rate 43 NOTE: For -Iraqi individuals, multiply the result by 1.210. Chronic Kidney Disease: Estimated GFR < 60 mL/min/1.73m2 Severe Kidney Disease: Estimated GFR < 15 mL/min/1.73m2 Glucose Random 97 60-115 mg/dL Calcium 9.2 8.4-10.2 mg/dL XR chest 1V Reviewed date:08/26/2023 06:24:12 PM Interpretation: Performing Lab: Notes/Report: [address] [address] XRay Report Signed Patient: Erasmo Quevedo MR#: [id number] 70 : 1945 Acct:[id number] Age/Sex: 78 / M ADM Date: 08/21/23 Loc: [facility] 468-[address]: Tamera BARRON Ordering Physician: Tamera Watts Date of Service: 08/25/23 Procedure(s): XR chest 1V Accession Number(s): [id number] cc: Tamera Watts; Moris Yu MD EXAMINATION: [...] in OV> 08/25/23 190 DD/ 06 TD/TT: Crm Coordinator: [place] [address] XRay Report Signed Patient: Chris Quevedo MR#: [id number] 70 : 1945 Acct:[id number] Age/Sex: 78 / M ADM Date: 08/21/23 Loc: [facility] 468-[address]: Pavithra BARRON Ordering Physician: Tamera Watts Date of Service: 08/25/23 Procedure(s): XR bunny st 1V Accession Number(s): [id number] cc: Shira Watts; Moris Yu MD EXAMINATION: [...] in OV> 08/25/23 1901 DD/ 0600 TD/TT: Service Clerk ist: BOOM Lactic Acid Reviewed date:09/04/2023 04:43:19 PM Interpretation: Performing Lab:[facility], [address] [place] [phone] Notes/Report: Lactic Acid 1.5 0.5-2.0 mmol/L Urine Culture Reviewed date:09/05/2023 01:04:25 PM Interpretation: Performing Lab:[facility], [address] [place] [phone] Notes/Report: Urine Culture No growth. Blood Culture (First) Reviewed date:09/10/2023 01:28:56 PM Interpretation: Performing Lab:[facility], [address] [place] [phone] Notes/Report: Blood Culture (First) No growth after 5 days. Blood Culture (Second) Reviewed date:09/10/2023 01:28:42 PM Interpretation: Performing Lab:[facility], [address] [place] [phone] Notes/Report: Blood Culture (Second) No growth after [address] chest wo con Reviewed date:09/04/2023 04:44:13 PM Interpretation: Performing Lab: Notes/Report: [address] [place] [address] CT Scan Report Signed Patient: Erasmo Quevedo MR#: [id number] 70 : 1945 Acct:[id number] Age/Sex: 78 / M ADM Date: 09/04/23 [facility]: Pat Patricia [employer] Ordering Physician: Keesha Stein Date of Service: 09/04/23 Procedure(s): CT chest wo IV con Accession Number(s): [id number] cc: Moris Yu MD; Keesha Stein EXAMINATION: [...] in OV> 09/04/23 1621 DD/ 1515 TD/TT: Crm Coordinator: [place] [address] [place] [address] CT Scan Report Signed Patient: Chris Quevedo MR#: [id number] 70 : 1945 Acct:[id number] Age/Sex: 78 / M ADM Date: 09/04/23 Loc: [facility]: Pat Patricia [employer] Ordering Physician: Keesha Stein Date of Service: 09/04/23 Procedure(s): CT bunny st wo IV con Accession Number(s): [id number] cc: Moris Yu MD; Keesha Stein EXAMINATION: [...] in OV> 09/04/23 1621 DD/ 1515 TD/TT: Service Clerk ist: TANIKA CT abdomen pelvis wo con Reviewed date:09/04/2023 04:44:58 PM Interpretation: Performing Lab: Notes/Report: [address] [address] [address] Scan Report Signed Patient: Erasmo Quevedo MR#: [id number] 70 : 1945 Acct:[id number] Age/Sex: 78 / M ADM Date: 09/04/23 Loc: [facility]-[address]: Pat Patricia [employer] Ordering Physician: Keesha Stein Date of Service: 09/04/23 Procedure(s): CT abdomen pelvis wo IV con Accession Number(s): [id number] cc: Moris Yu MD; Keesha Stein EXAMINATION: [...] in OV> 09/04/23 1621 DD/ 1515 TD/TT: Crm Coordinator: [place] [address] CT Scan Report Signed Patient: Chris Quevedo MR#: [id number] 70 : 1945 Acct:[id number] Age/Sex: 78 / M ADM Date: 09/04/23 Loc: [place] [address]: Pat Patricia [employer] Ordering Physician: Keesha Stein Date of Service: 09/04/23 Procedure(s): CT abd omen pelvis wo IV con Accession Number(s): [id number] cc: Moris Yu MD; Keesha Stein EXAMINATION: [...] in OV> 09/04/23 1621 DD/ 1515 TD/TT: Service Clerk ist: TANIKA XR chest 1V Reviewed date:09/04/2023 04:46:00 PM Interpretation: Performing Lab: Notes/Report: [address] [address] XRay Report Signed Patient: Erasmo Quevedo MR#: [id number] 70 : 1945 Acct:[id number] Age/Sex: 78 / M ADM Date: 09/04/23 Loc: HO.ED Attending Dr: Ordering Physician: Keesha Stein Date of Service: 09/04/23 Procedure(s): XR chest 1V Accession Number(s): [id number] cc: Moris Yu MD; Keesha Stein EXAMINATION: [...] in OV> 09/04/23 1444 DD/ 1300 TD/TT: Crm Coordinator: [place] [address] XRay Report Signed Patient: Chris Quevedo MR#: [id number] 70 : 1945 Acct:[id number] Age/Sex: 78 / M ADM Date: 09/04/23 Loc: .ED Attending Dr: Ordering Physician: Keesha Stein Date of Service: 09/04/23 Procedure(s): XR bunny st 1V Accession Number(s): [id number] cc: Moris Yu MD; Keesha Stein EXAMINATION: [...] Moses Signed By: <Electronically signed by Santi Msoes in OV> 09/04/23 1444 DD/ 1300 TD/TT: Crm Coordinator: Complete Blood Count Auto Di ff Reviewed date:09/05/2023 01:08:06 PM Interpretation: Performing Lab:[facility], [address] [place] [phone] Notes/Report: White Blood Count 7.4 4.8-10.8 X10*3/uL [...] Panel Reviewed date:09/05/2023 01:02:01 PM Interpretation: Performing Lab:[address] [address] Notes/Report: Sodium 139 135-145 mmol/L Potassium 3.9 [...] Estimated Glomerular Filt Rate 35 NOTE: For -Iraqi individuals, multiply the result by 1.210. Chronic Kidney Disease: Estimated GFR < 60 mL/min/1.73m2 Severe Kidney Disease: Estimated GFR < 15 mL/min/1.73m2 Glucose Random 88 60-115 mg/dL Calcium 9.5 8.4-10.2 mg/dL Magnesium Reviewed date:09/05/2023 09:55:27 AM Interpretation: Performing Lab:[facility], [address] [place] [phone] Notes/Report: Magnesium 2.2 1.6-2.6 mg/dL FL guidance in [place] Reviewed date:09/10/2023 01:29:32 PM Interpretation: Performing Lab: Notes/Report: [address] [address] Fluoroscopy Report Signed Patient: Erasmo Quevedo MR#: [id number] 70 : 1945 Acct:[id number] Age/Sex: 78 / M ADM Date: 09/04/23 Loc: [facility] 363-[address]: Pat Patricia NP Ordering Physician: Kuldip Ibarra MD Date of Service: 09/05/23 Procedure(s): FL guidance in OR Accession Number(s): [id number] cc: Kuldip Ibarra MD; Moris Yu MD [...] in OV> 09/09/23 153 DD/ 184 TD/TT: Crm Coordinator: [place] [address] Fluoroscopy Report Signed Patient: Chris Quevedo MR#: [id number] 70 : 1945 Acct:[id number] Age/Sex: 78 / M ADM Date: 09/04/23 Loc: HO.S[facility] 363-[address]: Pat Patricia NP Ordering Physician: Kuldip Ibarra MD Date of Service: 09/05/23 Procedure(s): FL guidance in OR Accession Number(s): [id number] cc: Leonardo Ibarra MD; Moris Yu MD [...] in OV> 09/09/23 1538 DD/ 1845 TD/TT: Service Clerk ist: PN Creatinine Reviewed date:09/06/2023 04:10:25 PM Interpretation: Performing Lab:[facility], [address] [place] [phone] Notes/Report: Creatinine 1.63 0.5-1.4 mg/dL Creatinine Clr Calc Pharmacy 43.4 eGFR (calculated from the MDRD study equation) and eCrCl (calculated from the Cockcroft-Gault equation) are based on different parameters and may not yield comparable results. If eCrCl result is absurd, please check patient's height/weight. Estimated Glomerular Filt Rate 41 NOTE: For -Iraqi individuals, multiply the result by 1.210. Chronic Kidney Disease: Estimated GFR < 60 mL/min/1.73m2 Severe Kidney Disease: Estimated GFR < 15 mL/min/1.73m2 Hold Lav - Possible Hematolo gy Reviewed date:09/07/2023 12:36:28 PM Interpretation: Performing Lab:[facility], [address] [place] [phone] Notes/Report: Hold Lav - Possible Hematology SEE NOTE Specimen will be held untested for 8 hours. Call Hematology if testing is desired. Basic Metabolic Panel Reviewed date:09/07/2023 12:37:28 PM Interpretation: Performing Lab:[facility], [address] [place] [phone] Notes/Report: Sodium 138 135-145 mmol/L Potassium 3.8 [...] Estimated Glomerular Filt Rate 58 NOTE: For -Iraqi individuals, multiply the result by 1.210. Chronic Kidney Disease: Estimated GFR < 60 mL/min/1.73m2 Severe Kidney Disease: Estimated GFR < 15 mL/min/1.73m2 Glucose Random 98 60-115 mg/dL Calcium 8.7 8.4-10.2 mg/dL Lactic Acid Reviewed date:09/15/2023 10:08:39 AM Interpretation: Performing Lab:[address] [address] Notes/Report: Lactic Acid 1.3 0.5-2.0 mmol/L Blood Culture (First) Reviewed date:09/20/2023 08:17:24 PM Interpretation: Performing Lab:[address] [address] Notes/Report: Blood Culture (First) No growth after 5 days. Blood Culture (Second) Reviewed date:09/20/2023 08:16:12 PM Interpretation: Performing Lab:[address] [address] Notes/Report: Blood Culture (Second) No growth after 5 days. GI Panel Reviewed date:09/16/2023 04:20:02 PM Interpretation: Performing Lab:[address] [address] Notes/Report: Campylobacter Not Detected Not Detect. Plesiomonas [...] is performed by Multiplexed PCR, utilizing the [employer] Array. CT abdomen pelvis wo con Reviewed date:09/15/2023 10:09:52 AM Interpretation: Performing Lab: Notes/Report: [place] [address] CT Scan Report Signed Patient: Erasmo Quevedo MR#: [id number] 70 : 1945 Acct:[id number] Age/Sex: 78 / M ADM Date: 09/14/23 Loc: HO.ED Attending Dr: Ordering Physician: Beverly Sanchez MD Date of Service: 09/14/23 Procedure(s): CT abdomen pelvis wo IV con Accession Number(s): [id number] cc: Moris Yu MD; Beverly Sanchez MD [...] MD in OV> 09/14/232200 DD/ 54 TD/TT: Crm Coordinator: [address] [address] [address] Scan Report Signed Patient: Chris Quevedo MR#: [id number] 70 : 1945 Acct:[id number] Age/Sex: 78 / M ADM Date: 09/14/23 Loc: HO.ED Attending Dr: Ordering Physician: Beverly Sanchez MD Date of Service: 09/14/23 Procedure(s): CT abd omen pelvis wo IV con Accession Number(s): [id number] cc: Moris Yu MD; Beverly Sanchez MD [...] MD in OV> 09/14/232200 DD/ 54 TD/TT: Service Clerk ist: SS Complete Blood Count Auto Di ff Reviewed date:09/16/2023 04:25:25 PM Interpretation: Performing Lab:[facility], [address] [place] [phone] Notes/Report: White Blood Count 9.5 4.8-10.8 X10*3/uL [...] Panel Reviewed date:09/16/2023 04:19:35 PM Interpretation: Performing Lab:[address] [address] Notes/Report: Sodium 137 135-145 mmol/L Potassium 5.1 [...] Estimated Glomerular Filt Rate 52 NOTE: For -Iraqi individuals, multiply the result by 1.210. Chronic Kidney Disease: Estimated GFR < 60 mL/min/1.73m2 Severe Kidney Disease: Estimated GFR < 15 mL/min/1.73m2 Glucose Random 87 60-115 mg/dL Calcium 9.0 8.4-10.2 mg/dL Hold Lav - Possible Hematolo gy Reviewed date:09/16/2023 04:13:06 PM Interpretation: Performing Lab:[facility], [address] [place] [phone] Notes/Report: Hold Lav - Possible Hematology SEE NOTE Specimen will be held untested for 8 hours. Call Hematology if testing is desired. Liver Panel Reviewed date:09/16/2023 04:11:11 PM Interpretation: Performing Lab:[facility], [address] [place] [address] Notes/Report: Bilirubin Total 0.6 0.0-1.0 mg/dL Bilirubin Direct 0.2 0.0-0.5 mg/dL Slight Hem olysis Aspartate Amino Transferase 29 5-37 U/L Slight Hemolysis Alanine Aminotransferase 23 0-40 U/L Total Protein 6.6 6.5-8.0 g/dL Albumin Level 3.1 3.5-5.0 g/dL Alkaline Phosphatase 76 39-117 U/L Basic Metabolic Panel Fastin g Reviewed date:09/16/2023 04:12:46 PM Interpretation: Performing Lab:[facility], [address] [place] [phone] Notes/Report: Sodium 141 135-145 mmol/L Potassium 4.0 [...] Estimated Glomerular Filt Rate 56 NOTE: For -Iraqi individuals, multiply the result by 1.210. Chronic Kidney Disease: Estimated GFR < 60 mL/min/1.73m2 Severe Kidney Disease: Estimated GFR < 15 mL/min/1.73m2 Glucose Fasting 76 60-99 mg/dL Calcium 9.1 8.4-10.2 mg/dL Complete Blood Count no Diff Reviewed date:09/18/2023 01:19:22 PM Interpretation: Performing Lab:[facility], [address] [place] [phone] Notes/Report: White Blood Count 7.8 4.8-10.8 X10*3/uL [...] g Reviewed date:09/18/2023 12:40:26 PM Interpretation: Performing Lab:[facility], [address] [place] [phone] Notes/Report: Sodium 139 135-145 mmol/L Potassium 3.7 [...] Estimated Glomerular Filt Rate 55 NOTE: For -Iraqi individuals, multiply the result by 1.210. Chronic Kidney Disease: Estimated GFR < 60 mL/min/1.73m2 Severe Kidney Disease: Estimated GFR < 15 mL/min/1.73m2 Glucose Fasting 86 60-99 mg/dL Calcium 8.5 8.4-10.2 mg/dL XR KUB Reviewed date:09/19/2023 12:17:19 PM Interpretation: Performing Lab: Notes/Report: [address] [address] XRay Report Signed Patient: Erasmo Quevedo MR#: [id number] 70 : 1945 Acct:[id number] Age/Sex: 78 / M ADM Date: 09/15/23 Loc: HO.S3 370-[address]: Jefry Álvarez MD Ordering Physician: Jefry Álvarez MD Date of Service: 09/18/23 Procedure(s): XR KUB Accession Number(s): [id number] cc: Moris Yu MD; Jefry Álvarez MD [...] in OV> 09/19/23 1012 DD/ 1619 TD/TT: Crm Coordinator: [place] [address] XRay Report Signed Patient: Chris Quevedo MR#: [id number] 70 : 1945 Acct:[id number] Age/Sex: 78 / M ADM Date: 09/15/23 Loc: .S3 370-[address]: Mat Álvarez MD Ordering Physician: Jefry Álvarez MD Date of Service: 09/18/23 Procedure(s): XR KUB Accession Number(s): [id number] cc: Moris Yu MD; Jefry Álvarez MD [...] in OV> 09/19/23 1012 DD/ 1619 TD/TT: Service Clerk ist: SS Complete Blood Count Auto Di ff Reviewed date:10/26/2023 09:59:23 AM Interpretation: Performing Lab:[address] [address] Notes/Report: White Blood Count 5.3 4.8-10.8 X10*3/uL [...] te Reviewed date:10/25/2023 02:39:29 PM Interpretation: Performing Lab:[facility], [address] [place] [phone] Notes/Report: Erythrocyte Sedimentation Rate 23 0-15 MM/HR Patients with polycythemia and many hemoglobin abnormalities may have depressed sed rates whereas patients with anemia may have elevated sed rates. Liver Panel Reviewed date:10/25/2023 02:40:10 PM Interpretation: Performing Lab:[facility], [address] [place] [phone] Notes/Report: Bilirubin Total 0.9 0.0-1.0 mg/dL Bilirubin Direct 0.4 0.0-0.5 mg/dL Aspartate Amino Transferase 18 5-37 U/L Alanine Aminotransferase 17 0-40 U/L Total Protein 6.8 6.5-8.0 g/dL Albumin Level 3.4 3.5-5.0 g/dL Alkaline Phosphatase 75 39-117 U/L Basic Metabolic Panel Reviewed date:10/26/2023 09:58:59 AM Interpretation: Performing Lab:[facility], [address] [place] [phone] Notes/Report: Sodium 141 135-145 mmol/L Potassium 4.3 3.3-5.1 mmol/L Chloride 110 96-108 mmol/L Carbon Dioxide 25 22-29 mmol/L Anion Gap 10 12-20 Blood Urea Nitrogen 20 9-16 mg/dL Creatinine 1.99 0.5-1.4 mg/dL Estimated Glomerular Filt Rate 33 NOTE: For -Iraqi individuals, multiply the result by 1.210. Chronic Kidney Disease: Estimated GFR < 60 mL/min/1.73m2 Severe Kidney Disease: Estimated GFR < 15 mL/min/1.73m2 Glucose Random 107 60-115 mg/dL Calcium 9.6 8.4-10.2 mg/dL FL guidance in OR Reviewed date:03/05/2024 12:54:47 PM Interpretation: Performing Lab: Notes/Report: [address] [address] Fluoroscopy Report Signed Patient: Erasmo Quevedo MR#: [id number] 70 : 1945 Acct:[id number] Age/Sex: 78 / M ADM Date: 10/31/23 Loc: .[facility] Attending Dr: Kuldip Ibarra MD Ordering Physician: Kuldip Ibarra MD Date of Service: 10/31/23 Procedure(s): FL guidance in OR Accession Number(s): [id number] cc: Kuldip Ibarra MD; Moris Yu MD [...] 03/05/24 0852 DD/ 0758 TD/TT: 10/31/23 0831 Crm Coordinator: [place] [address] Fluoroscopy Report Signed Patient: Chris Quevedo MR#: [id number] 70 : 1945 Acct:[id number] Age/Sex: 78 / M ADM Date: 10/31/23 Loc: .[facility] Attending Dr: Kuldip Ibarra MD Ordering Physician: Kuldip Ibarra MD Date of Service: 10/31/23 Procedure(s): FL guidance in OR Accession Number(s): [id number] cc: Leonardo Ibarra MD; Moris Yu MD [...] by: Jeni Hart MD 03/05/2024 08:52 AM [facility] Dictated By: Jeni Hart MD Signed By: <Electronically signed by Jeni Hart MD in OV> 03/05/24 0852 DD/ 0758 TD/TT: 10/31/23 0831 Crm Coordinator: TANG Urine Culture Reviewed date:11/19/2023 04:14:44 PM Interpretation: Performing Lab:[address] [address] Notes/Report: Urine Culture Report Result Urine Culture < 10,000 cfu/ml Complete Blood Count Auto Di ff Reviewed date:01/03/2024 12:30:08 PM Interpretation: Performing Lab:[address] [address] Notes/Report: White Blood Count 5.7 4.8-10.8 X10*3/uL [...] Panel Reviewed date:01/03/2024 12:18:50 PM Interpretation: Performing Lab:[facility], [address] [place] [phone] Notes/Report: Sodium 139 135-145 mmol/L Potassium 4.4 3.3-5.1 mmol/L Chloride 110 96-108 mmol/L Carbon Dioxide 23 22-29 mmol/L Anion Gap 10 12-20 Blood Urea Nitrogen 17 9-16 mg/dL Creatinine 1.74 0.5-1.4 mg/dL Estimated Glomerular Filt Rate 38 NOTE: For -Iraqi individuals, multiply the result by 1.210. Chronic Kidney Disease: Estimated GFR < 60 mL/min/1.73m2 Severe Kidney Disease: Estimated GFR < 15 mL/min/1.73m2 Glucose Random 97 60-115 mg/dL Calcium 9.7 8.4-10.2 mg/dL XR KUB Reviewed date:02/18/2024 03:50:04 PM Interpretation: Performing Lab: Notes/Report: [address] [address] XRay Report Signed Patient: Erasmo Quevedo MR#: [id number] 70 : 1945 Acct:[id number] Age/Sex: 78 / M ADM Date: 02/15/24 Loc: [facility] Attending Dr: Kuldip Ibarra MD Ordering Physician: Kuldip Ibrara MD Date of Service: 02/15/24 Procedure(s): XR KUB Accession Number(s): [id number] cc: Kuldip Ibarra MD; Moris Yu MD [...] OV> 02/17/242038 DD/ 1150 TD/TT: 02/15/24 1205 Crm Coordinator: [place] [address] XRay Report Signed Patient: Chris Quevedo MR#: [id number] 70 : 1945 Acct:[id number] Age/Sex: 78 / M ADM Date: 02/15/24 Loc: HO.XRAY Attending Dr: Kuldip Ibarra MD Ordering Physician: Kuldip Ibarra MD Date of Service: 02/15/24 Procedure(s): XR KUB Accession Number(s): [id number] cc: Leonardo Ibarra MD; Moris Yu MD [...] OV> 02/17/242038 DD/ 1150 TD/TT: 02/15/24 1205 Crm Coordinator: Urine Culture Reviewed date:03/03/2024 06:22:09 PM Interpretation: Performing Lab:[facility], [address] [place] [phone] Notes/Report: Urine Culture No growth. CT abdomen pelvis wo con Reviewed date:04/05/2024 10:26:12 AM Interpretation: Performing Lab: Notes/Report: [address] [address] [address] Scan Report Signed Patient: Erasmo Quevedo MR#: [id number] 70 : 1945 Acct:[id number] Age/Sex: 78 / M ADM Date: 04/03/24 Loc: HO.CT Attending Dr: Kuldip Ibarra MD Ordering Physician: Kuldip Ibarra MD Date of Service: 04/03/24 Procedure(s): CT abdomen pelvis wo IV con Accession Number(s): [id number] cc: Kuldip Ibarra MD; Moris Yu MD Report Number: [id number]: Total DLP = 625.00 mGy-cm CLINICAL HISTORY: [...] 04/04/24 1247 DD/ 1246 TD/TT: 04/04/24 1246 Crm Coordinator: [place] [address] CT Scan Report Signed Patient: Chris Quevedo MR#: [id number] 70 : 1945 Acct:[id number] Age/Sex: 78 / M ADM Date: 04/03/24 Loc: HO.CT Attending Dr: Kuldip Ibarra MD Ordering Physician: Kuldip Ibarra MD Date of Service: 04/03/24 Procedure(s): CT abd omen pelvis wo IV con Accession Number(s): [id number] cc: Leonardo Ibarra MD; Moris Yu MD Report Number: [id number]: Total DLP = 625.00 mGy-cm CLINICAL HISTORY: [...] 04/04/24 1247 DD/ 1246 TD/TT: 04/04/24 1246 Crm Coordinator: Kidney Stone Reviewed date:05/14/2024 10:06:37 AM Interpretation: Performing Lab:[facility], [address] [place] [phone] Notes/Report: R Ureter S1246 Component 1 SEE NOTE Calcium Oxalate Dihydrate (Weddellite) 20% Calcium Oxalate Monohydrate (Whewellite) 80% Stone Weight 0.003 This test was developed and its analytical performance characteristics have been determined by [email or web address]. It has not been cleared or approved by the FDA. This assay has been validated pursuant to the CLIA regulations and is used for clinical purposes. THIS TEST WAS PERFORMED AT: [facility] [address] [place] [address] SIDDHARTH ZULUAGA MD,PHD,JAN [facility] KIDNEY STONE Pathology Reviewed date:05/08/2024 07:02:03 PM Interpretation: Performing Lab:[facility], [address] [place] [phone] Notes/Report: ---- Name: SaeErasmo Age/Sex: 79/M : 1945 Unit#: [id number] Attend Dr: Kuldip Ibarra MD Re05/07/24 Status : [facility] Location: [facility] Disch: ---- SPEC : [id number] RECD : 05/07/24 STATUS: DI MORRISON NUM: [id number] JAQUELINE: 05/07/24-[address] [facility] [address]: Kuldip Ibarra MD ENTERED: 05/07/24 SP TYPE: Surgical OTHR DR: Moris Yu MD ORDERED: GO Diagnosis Right ureteral stone (removal): Calculus identified; macroscopic description only. Comment: The entire specimen was sent for chemical analysis. Please see the laboratory portion of the EMR f or the outside report from [email or web address]. Clinical History Calculus of ureter Material Received Right ureteral stone Gross Description Received fresh with gauze labeled right ureteral stone? is a 0.2 cm hard, white-odom calculus, forwarded to [email or web address] for chemical analysis. No soft tissue is identified. Gross description only. CEDS Copies To: Kuldip Ibarra MD [facility] [address] [place] [address] Dr. Marva wood [address] [place] [address] [email or web address] Moris Yu MD [facility] [address] [place] [address] [address] [place] [address] ---- Signed (signature on file) Judit Tejeda 05/08/24 0856 ---- END OF REPORT Urine Culture Reviewed date:05/13/2024 12:07:29 PM Interpretation: Performing Lab:[facility], [address] [place] [phone] Notes/Report: Urine Culture Report Result Urine Culture < 10,000 cfu/ml O:CANALB Christa albicans Urine Culture Quant Urine Culture < 10,000 cfu/mL FL guidance in OR Reviewed date:05/08/2024 07:02:20 PM Interpretation: Performing Lab: Notes/Report: [address] [address] Fluoroscopy Report Signed Patient: Erasmo Quevedo MR#: [id number] 70 : 1945 Acct:[id number] Age/Sex: 79 / M ADM Date: 05/07/24 Loc: [facility] Attending Dr: Kuldip Ibarra MD Ordering Physician: Kuldip Ibarra MD Date of Service: 05/07/24 Procedure(s): FL guidance in OR Accession Number(s): [id number] cc: Kuldip Ibarra MD; Moris Yu MD [...] 05/07/24 1442 DD/ 29 TD/TT: 05/07/24 1350 Crm Coordinator: [address] [address] Fluoroscopy Report Signed Patient: Chris Quevedo MR#: [id number] 70 : 1945 Acct:[id number] Age/Sex: 79 / M ADM Date: 05/07/24 Loc: HO.[facility] Attending Dr: Kuldip Ibarra MD Ordering Physician: Kuldip Ibarra MD Date of Service: 05/07/24 Procedure(s): FL guidance in OR Accession Number(s): [id number] cc: Leonardo Ibarra MD; Moris Yu MD [...] 05/07/24 1442 DD/ 1230 TD/TT: 05/07/24 1350 Crm Coordinator: Basic Metabolic Panel Reviewed date:06/02/2024 10:00:22 AM Interpretation: Performing Lab:[facility], [address] [place] [phone] Notes/Report: Sodium 140 135-145 mmol/L Potassium 4.0 [...] date:06/03/2024 12:20:03 PM Interpretation: Performing Lab: Notes/Report: [address] [address] XRay Report Signed Patient: Erasmo Quevedo MR#: [id number] 70 : 1945 Acct:[id number] Age/Sex: 79 / M ADM Date: 05/31/24 Loc: [facility] Attending Dr: Mau Hodge MD Ordering Physician: Kuldip Ibarra MD Date of Service: 05/31/24 Procedure(s): XR KUB Accession Number(s): [id number] cc: Kuldip Ibarra MD; Moris Yu MD [...] 06/03/24 1007 DD/ 1217 TD/TT: 05/31/24 1230 Crm Coordinator: [address] [address] XRay Report Signed Patient: Chris Quevedo MR#: [id number] 70 : 1945 Acct:[id number] Age/Sex: 79 / M ADM Date: 05/31/24 Loc: HO.XRAY Attending Dr: Mau Hodge MD Ordering Physician: Kuldip Ibarra MD Date of Service: 05/31/24 Procedure(s): XR KUB Accession Number(s): [id number] cc: Leonardo Ibarra MD; Moris Yu MD [...] 06/03/24 1007 DD/ 1217 TD/TT: 05/31/24 1230 Crm Coordinator: OH upper GI w air Reviewed date:06/03/2024 12:49:02 PM Interpretation: Performing Lab: Notes/Report: [place] [address] Fluoroscopy Report Signed Patient: Erasmo Quevedo MR#: [id number] 70 : 1945 Acct:[id number] Age/Sex: 79 / M ADM Date: 06/03/24 Loc: HO.XRAY Attending Dr: Moris Yu MD Ordering Physician: Moris Yu MD Date of Service: 06/03/24 Procedure(s): FL upper GI w air Accession Number(s): [id number] cc: Moris Yu MD EXAMINATION: XR FLUOROSCOPY [...] 06/03/24 1133 DD/ 0745 TD/TT: 06/03/24 0820 Crm Coordinator: [address] [address] Fluoroscopy Report Signed Patient: Chris Quevedo MR#: [id number] 70 : 1945 Acct:[id number] Age/Sex: 79 / M ADM Date: 06/03/24 Loc: HO.XRAY Attending Dr: Moris Yu MD Ordering Physician: Moris Yu MD Date of Service: 06/03/24 Procedure(s): FL upp er GI w air Accession Number(s): [id number] cc: Moris Yu MD EXAMINATION: XR FLUOROSCOPY [...] 06/03/24 1133 DD/ 0745 TD/TT: 06/03/24 0820 Crm Coordinator: ENRIQUE Reason For Referral No Information Medications [...] Flu Vaccine Unknown 12/07/2011 Administered given at [facility] Flu Vaccine Unknown 11/18/2012 Administered received at [facility] PPSV23 (Pnemovax) IM Intramuscular 09/19/2013 Administered Flu Vaccine Unknown 12/03/2013 Administered was given b [facility] Flu Vaccine Unknown 11/27/2014 Administered Given by [...] W/U Status Risk Notes Problem Erectile dysfunction (633149640) Erectile Dysfunction (607.84) Active confirmed Problem 287906534 Thrombocytopenia (D69.6) Active confirmed Problem 889818158 Paroxysmal atria l fibrillation (I48.0) Active confirmed Problem 657734480 Tubular adenoma of colon (D12.6) Active confirmed Problem 392831557 History of coron shaquille artery disease (Z86.79) Active confirmed Problem 81613675 Sarcoidosis (D86.9) Active confirmed Problem 98257766 Dysthymia (F34.1) Active confirmed Problem 942961379 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) Active confirmed Problem 915484171 Pure hypercholesterolemia (E78.00) Active confirmed Problem Hypercholesterolemia (31295572) Hypercholesterolemia (E78.00) Active confirmed Problem 207277139 BMI 32.0-32.9,ad ult (Z68.32) Active confirmed Problem 878424717 Moderate asthma without complication, unspecified whether persistent (J45.909) Active confirmed Problem 15974917 Chronic congesti ve heart failure, unspecified heart failure type (I50.9) Active confirmed Problem 760153836 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) Active confirmed Problem 745191340 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 confirmed Problem Hypersomnia (41054464) Hypersomnolence (G47.10) Active confirmed Problem 58461924 Other ventricula r tachycardia (I47.29) Active confirmed Problem 307225609 Acute constipati on (K59.00) Active confirmed Vital [...] Moris Yu MD [address] [place] [id number] 07/14/2023 Moris Yu Pure hypercholestero lemia E78.00 Moris Yu MD [address] [place] [id number] 09/11/2023 Moris Yu Paroxysmal atrial fibrillation I48.0 and Gross hematuria R31.0 Moris Yu MD [address] [place] [id number] 03/01/2024 Moris Yu Pure hypercholestero lemia E78.00 ; Thrombocytopenia D69.6 and Chronic congestive heart failure, unspecified heart failure type I50.9 Moris Yu MD [address] [place] [id number] 07/20/2023 Moris Yu Chronic congestive h eart failure, unspecified heart failure type I50.9 ; Hypercholesterolemia E78.00 ; Nonsustained ventricular tachycardia I47.2 and Other ventricular tachycardia I47.29 Moris uY MD [address] [place] [id number] 08/29/2023 Moris Yu Acute pneumonia J18. 9 ; Thrombocytopenia D69.6 ; Elevated serum creatinine R79.89 ; Lower extremity edema R60.0 ; Gross hematuria R31.0 and Dental abscess K04.7 Moris Yu MD [address] [place] [id number] 09/14/2023 Moris Yu Dysuria R30.0 ; Acut e diarrhea R19.7 and Acute constipation K59.00 Moris Yu MD [address] [place] [address] [id number] 09/25/2023 Moris Yu Status post insertio n of drug eluting coronary artery stent Z95.5 ; Paroxysmal atrial fibrillation I48.0 and Chronic congestive heart failure, unspecified heart failure type I50.9 Moris Yu MD [address] [place] [address] [id number] 03/08/2024 Moris Yu Gross hematuria R31. 0 [...] Moris Yu MD [address] [place] [address] [id number] 08/28/2023 Moris Yu MD [address] [place] [address] [id number] 09/08/2023 Moris Yu MD [address] [place] [address] [id number] 09/08/2023 Moris Yu MD [address] [place] [address] [id number] 09/19/2023 Moris Yu MD [address] [place], [place] [id number] 04/05/2024 Moris Yu Abnormal computed tomography of [...] Name:Moris Wiggins ier, 09/06/2024 08:00:00 AM, [address] [place] [address], [address], [place], [place], [phone], Provider Name:Moris Wiggins ier, 09/13/2024 02:00:00 PM, [address] [place] [address], [address], [place], [phone], Provider Name:Moris Wiggins ier, 03/06/2025 08:00:00 AM, [address] [place] [address], [address], [place], [phone], Provider Name:Moris Wiggins ier, 03/13/2025 02:30:00 PM, [address] [place] [address], [address], [place], [phone], Insurance Providers Payer Name Payer Address Payer Phone Subscriber Number Group Number Insured Name Patient Relationship to Insured Coverage Start Date Coverage End Date [employer] [address] [place] [address] [id number] Sae Erasmo Self - patient is the insured [address] [address] [id number] Erasmo Quevedo Self - patient is the insured Medical (General) History Medical History History ICD Code colonoscopy - 04/2006 - repea t 5 years. 07/27/12; colonoscopy 05/14/2013 - repeat 5 years; Colonoscopy done 11/19/[address] Srivastava - no further testing indicated. Achilles bursitis or tendinitis HX of Kidney Stones Incidental Lung Nodule
--- OUTSIDE RECORDS SUMMARY | 2024-06-11 11:16 | XMS_ITS ---
Author Organization Moris Yu MD Address [address] [place], [place] [id number] Care Team Providers Care [employer] Name Role Phone Moris Yu Primary Care Provider [phone] Results Component Value Reference Range Notes Complete Blood Count Auto Di ff Reviewed date:03/01/2024 11:46:39 AM Interpretation: Performing Lab:[facility], [address] [place] [phone] Notes/Report: White Blood Count 5.6 4.8-10.8 X10*3/uL [...] NRBC Abs Auto 0.000 0.0-0.012 X10*3/uL Comprehensive [place]. Panel Fa st Reviewed date:03/01/2024 12:19:08 PM Interpretation: Performing Lab:[facility], [address] [place] [phone] Notes/Report: Sodium 141 135-145 mmol/L Potassium 4.4 [...] Panel Reviewed date:03/01/2024 12:18:48 PM Interpretation: Performing Lab:[facility], [address] [place] [phone] Notes/Report: Triglycerides 76 <150 mg/dL Desirable Triglyceride: [...] (Free>4and<10) Reviewed date:03/01/2024 12:19:16 PM Interpretation: Performing Lab:[address] [address] Notes/Report: PSA,Total (Free>4and<10) 0.20 0.00-4.00 ng/mL A [...] Reviewed date:03/08/2024 11:48:58 AM Interpretation:BETSY 03/08/24 Performing Lab:[facility], [address] [place] [phone] Notes/Report: Urine, Clean Catch Color Urine Yellow Appearance Urine Hazy PH 6.0 5.0-9.0 Glucose Urine UA Negative Negative mg/dL Urine Blood Large (3+) Negative Specific [place] - Urine 1.020 1.005-1.025 Urine Protein Trace [...] Location Date Provider Diagnosis Moris Yu MD [address] [place] [phone] 03/01/2024 Moris Yu Pure hypercholestero lemia E78.00 [...] Provider Name:Moris Wiggins ier, 09/06/2024 08:00:00 AM, [address] [place] [address], [address], [phone], Provider Name:Moris Wiggins ier, 09/13/2024 02:00:00 PM, [address] [place] [address], [address], [phone], Provider Name:Moris Wiggins ier, 03/06/2025 08:00:00 AM, [address] [place] [address], [phone], Provider Name:Moris Wiggins ier, 03/13/2025 02:30:00 PM, [address] [place] [address], [phone], Progress Notes * Erasmo QUEVEDO BDOB: (79 yo M)Acc No.[id number]:03/01/2024 Progress Note Patient:?Erasmo QUEVEDO Provider:?Moris Yu MD :1945???Age:78 Y???Sex:Male Rakesh e:03/01/2024 Address:[address], [address] [facility] [phone] Subjective: * Chief Complaints: * ???1. Annual labs. * Medical History:? Objective: * Vitals:? Assessment: * Assessment: 1.?Pure hypercholesterolemia - E78.00 (Primary)???2.?Thrombocytopenia - D69.6???3.?Chronic congestive heart failure, unspecified heart failure type - I50.9??? Plan: * Treatment: 2.?Thrombocytopenia?LAB: Complete Blood Count Auto Diff (Collection Date & Time - 03/01/2024 08:15 AM) ?LAB: Comprehensive [place]. Panel Fast (Collection Date & Time - [...] Time - 03/01/2024 08:15 AM) ?LAB: Comprehensive [place]. Panel Fast (Collection Date & Time - 03/01/2024 08:15 AM) ?LAB: Lipid Panel (Collection Date & Time - 03/01/2024 08:15 AM) ?LAB: PSA,Total (Free>4and<10) (Collection Date & Time - 03/01/2024 08:15 AM) ?LAB: UA ClnCatch+Micro w/rflx Cult (Collection Date & Time - 03/01/2024 08:15 AM) * Procedure Codes:?31452 VENIP UNCT, ROUTINE* * * The named appointment provid er may or may not be the originator of this progress note, and it is not deemed complete until electronically signed by the appointment provider. Sign off status: Pending * Provider:?Moris Yu MD Date:?0 03/01/2024 Generated for Marie vázquez/Jacob/Tuckeritting on:?06/11/2024 11:15 AM EDT
--- OUTSIDE RECORDS SUMMARY | 2024-06-11 11:16 | XMS_ITS | Clinical Summary ---
Author Organization [facility] Address [address] [place] [address] Phone Care Team Providers Care Plaster And Stucco Worker Name Role Phone Moris Yu MD Primary [...] age to complete this topic Insurance Medicare [facility] Medicare [facility] Care Teams Plaster And Stucco Worker Relationship Specialty Start Date End Date Moris Yu MD [address] [place] [address] PCP - General Internal Medicine 08/14/20
--- OUTSIDE RECORDS SUMMARY | 2024-06-11 11:17 | XMS_ITS ---
Author Organization Moris Yu MD Address [address] [place] [phone] Care Team Providers Care College Counselor Name Role Phone Moris Yu Primary Care Provider Allergies Allergen (clinical drug ingredient) Drug/Non Drug Allergy documented on EMR Reaction Allergy Type Onset Date Status Gadavist hives Drug Allergy Active azithromycin Zithromax Z-Johnny severe diarrhea Drug Allergy Active penicillin G [...] Location Date Provider Diagnosis Moris Yu MD [address] [place] [address] [place] [phone] 03/08/2024 Moris Yu Gross hematuria R31. 0 [...] 08:00:00 AM, [address], [address], [place], [place], [phone], Provider Name:Moris San Bradyeunice ier, 09/13/2024 02:00:00 PM, [address], [address], [place], [place], [phone], Provider Name:Moris eastmanr, 03/06/2025 08:00:00 AM, [address], [address], [place], [phone], Provider Name:Moris Mena Feliciano eastmanr, 03/13/2025 02:30:00 PM, [address], [address], [place], [phone], Progress Notes * Erasmo QUEVEDO BDOB: (78 yo M)Acc No.[id number]:03/08/2024 Patient:?Erasmo Quevedo B Provider:?Moris Yu MD :1945???Age:78 Y???Sex:Male Rakesh e:03/08/2024 Address:[address]-[phone] Subjective: * Chief Complaints: * ???CBACK [...] Pets: none. no Travel outside of the [place]. * Medications:?TakingMultaq 40 0 MG Tablet [...] Auto 0.000 0.0-0. 012 - X10*3/uL ???Lab:Comprehensive [place]. P iris Fast (Order Date - 03/01/2024) [...] Blood Large (3+) A Negative - ?Specific [place] - Urine 1.020 1.005-1.025 - ?Urine Protein [...] MD Date:?0 03/08/2024 Generated for Marie vázquez/Jacob/Tuckeritting on:?06/11/2024 11:16 AM EDT History and Physical Notes * [...]
--- OUTSIDE RECORDS SUMMARY | 2024-06-11 11:17 | XMS_ITS | Clinical Summary ---
Author Organization [facility] Address [address] [place] [address] Care Team Providers Care Computer Game Programmer Name Role Phone Moris Yu MD Primary Care Provider [phone] Allergies Active Allergy Reactions Criticality Noted Date [...] mg by nebulization daily. 0 Active Tiotropium [place] Monohydrate (SPIRIVA RESPIMAT) 2.5 MCG/ACT AERS Inhale [...] this topic Medical Devices Implanted Type Area Plasticator Device Identifier Shelf Expiration Date Model / Serial / Lot Shell Trident Ii F 58mm 5 Screw Hole Cluster Tritanium - [id number] - [id number] Implanted:Qty: 1 on 08/29/2019 by Ron Sanchez MD at [facility] Right: Hip [employer] [id number] 12/24/2023 702-04-58F / / [id number] Screw Trident Ii 30mm 6.5mm Low Profile Hexagonal Bone - [id number] - [id number] Implanted:Qty: 1 on 08/29/2019 by Ron Sanchez MD at [facility] Right: Hip [employer] [id number] 01/08/2024 7041-0814 / / 33TH Insert Trident 10d F 36mm X3 Acetabular Hip - [id number] - [id number] Implanted:Qty: 1 on 08/29/2019 by Ron Sanchez MD at [facility] Right: Hip [employer] [id number] 01/14/2024 623-10-36F / / [id number] Screw Trident Ii 30mm 6.5mm Low Profile Hexagonal Bone - [id number] - [id number] Implanted:Qty: 1 on 08/29/2019 by Ron Sanchez MD at [facility] Right: Hip [employer] [id number] 12/10/2023 1130-9621 / / 3HYD Stem Hip Neck Angle 127 Degree Accolade Ii Sz6 - [id number] - [id number] Implanted:Qty: 1 on 08/29/2019 by Ron Sanchez MD at [facility] Right: Hip [employer] [id number] 10/04/2022 1217-3561 / / [id number] Head V40 -5mm 36mm Delta Femoral Hip - 962831 - [id number] Implanted:Qty: 1 on 08/29/2019 by Ron Sanchez MD at [facility] Right: Hip [employer] [id number] 07/31/2024 6570-0-036 / / [id number] Advance Directives For more information, please contact: [phone] Latest Code Status on File Code Status [...] way: discussion with patient . Care Teams Computer Game Programmer Relationship Specialty Start Date End Date Moris Yu MD [address] [place] [address] PCP - General Internal Medicine 06/26/19
--- OUTSIDE RECORDS SUMMARY | 2024-06-11 11:17 | XMS_ITS | Clinical Summary ---
Author Organization [email or web address] it Address [address] [place] [address] Care Team Providers Care Silvering Applicator Name Role Phone Moris Yu MD Primary [...] TOTAL HIP; Surgeon: Ron Sanchez MD; Location: [facility] Service: Orthopedics; Laterality: Right; JOINT REPLACEMENT PROCEDURE:JOINT REPLACEMENT Medical History Medical History Date Comments Asthma 11/08/2016 DX:Asthma Interstitial lung disease ([facility] V24, [facility] V28) 11/08/2016 DX:Interstitial lung disease (HCC) Pulmonary sarcoidosis ([facility] V24) 11/24/2016 DX:Pulmonary sarcoidosis (HCC) Seasonal allergic rhinitis 11/24/2016 DX:Se asonal allergic rhinitis Nephrolithiasis 03/17/2017 DX:Nephrolithias is; COMMENT: 06/29/2015 Hyperlipidemia 04/20/2017 DX:Hyperlipidemi a Asthma DX:Asthma Hypertension DX:Hypertension Kidney damage DX:Kidney damage Osteoarthritis DX:Osteoarthriti s Sarcoidosis, lung ([facility] V24) DX:Sarcoidosis, lung (HCC) PVC (premature ventricular [...] this topic Medical Devices Implanted Type Area Information Security Engineer Device Identifier Shelf Expiration Date Model / Serial / Lot Shell Trident Ii F 58mm 5 Screw Hole Cluster Tritanium - [id number] Implanted:Qty: 1 on 08/29/2019 by Ron Sanchez MD Right: Hip [employer] [id number] 12/24/2023 702-04-58F / / [id number] Screw Trident Ii 30mm 6.5mm Low Profile Hexagonal Bone - [id number] Implanted:Qty: 1 on 08/29/2019 by Ron Sanchez MD Right: Hip [employer] [id number] 01/08/2024 6977-9008 / / 33TH Insert Trident 10d F 36mm X3 Acetabular Hip - [id number] Implanted:Qty: 1 on 08/29/2019 by Ron Sanchez MD Right: Hip [employer] [id number] 01/14/2024 623-10-36F / / [id number] Screw Trident Ii 30mm 6.5mm Low Profile Hexagonal Bone - [id number] Implanted:Qty: 1 on 08/29/2019 by Ron Sanchez MD Right: Hip [employer] [id number] 12/10/2023 3080-5436 / / 3HYD Stem Hip Neck Angle 127 Degree Accolade Ii Sz6 - [id number] Implanted:Qty: 1 on 08/29/2019 by Ron Sanchez MD Right: Hip [employer] [id number] 10/04/2022 4834-1128 / / [id number] Head V40 -5mm 36mm Delta Femoral Hip - [id number] Implanted:Qty: 1 on 08/29/2019 by Ron Sanchez MD Right: Hip [employer] [id number] 07/31/2024 6570-0-036 / / [id number] Care Teams Silvering Applicator Relationship Specialty Start Date End Date Moris Yu MD PCP - General Internal Medicine 01/24/17
== END ==
LOC: HO.CARD 09:48
PROVIDERS: PCP Internal Medicine; Visit Provider Nurse Practitioner Family
DX: I35.0 Nonrheumatic aortic (valve) stenosis (principal); I42.9 Cardiomyopathy, unspecified
CPT/HCPCS: 93306

== ENCOUNTER → 2024-06-11 09:51 | Outpatient (BNV) | payer MEDICARE, OTHER, SELFPAY | PROVIDERS: PCP Internal Medicine; Visit Provider Internal Medicine Cardiovascular Disease | DX: I35.2 Nonrheumatic aortic (valve) stenosis with insufficiency (principal); I34.81 Nonrheumatic mitral (valve) annulus calcification; I34.0 Nonrheumatic mitral (valve) insufficiency; I36.1 Nonrheumatic tricuspid (valve) insufficiency | CPT/HCPCS: 93306 ==

== ENCOUNTER 2024-06-18 14:19 | Outpatient (REF) | payer MEDICARE, OTHER, SELFPAY ==
[2024-06-18 14:39] LABS: MANUAL DIFF FLAG NO
[2024-06-18 15:16] LABS: Basophils Percent Auto 0.2 % (0-2); Eosinophils Absolute Auto 0.1 X10*3/uL (0.0-0.4); Eosinophils Percent Auto 2.5 % (0-4); Hematocrit 36.3 % (42.0-52.0); Hemoglobin 11.9 g/dl (14.0-18.0); Imm Gran Abs Auto 0.02 X10*3/uL (0.00-0.03); Imm Gran Pct Auto 0.4 % (0.0-0.4); Lymphocytes Absolute Auto 0.9 X10*3/uL (1.2-4.9); Lymphocytes Percent Auto 15.8 % (20-40); Mean Corpuscular HGB Conc 32.8 g/dl (31.0-36.0); Mean Corpuscular Hemoglobin 31.6 pg (27.0-33.0); Mean Corpuscular Volume 96.3 fL (80.0-98.0); Monocytes Absolute Auto 0.4 X10*3/uL (0.1-1.2); Monocytes Percent Auto 6.9 % (2-11); Neutrophils Absolute Auto 4.2 x10*3/uL (2.0-8.3); Neutrophils Percent Auto 74.2 % (45-73); Platelet Count 167 X10*3/uL (160-400); Red Blood Count 3.77 X10*6/uL (4.60-5.80); Red Cell Distribution Width 14.5 % (11.0-16.0); White Blood Count 5.6 X10*3/uL (4.8-10.8)
--- OUTSIDE RECORDS SUMMARY | 2024-06-18 17:11 | XMS_ITS | Continuity of Care Document ---
Author Name [facility] Organization [facility] Care Team Providers Care Take Away Worker Name Role Phone [facility] Unavailable Unavailable Medications Combined list of outpatient medications from Department of Defense and Veterans Affairs facilities.Medications provided include 1) outpatient medications from the last 15 months, and 2) patient-reported medications. Medication Details Route Status Patient Instructions Prescription Expires Prescription Number Last Dispense Date Ordering Provider Order Date Order Qty Source ALLOPURINOL (ALLOPURINO L), 100MG, TABLET, ORAL, [facility], 1000 ea. BOTTLE Active [id number] 4 2023 90 Pharmac y Data Transac tion Service Facilit y AMOX TR-POTASSIU M CLAVULANATE (AMOXICILLI N/POTASSIUM CLAV), 875-125 MG, TABLET, ORAL, [facility], 20 ea. BOTTLE Active [id number] 4 2023 14 Pharmac y Data Transac tion Service Facilit y ATORVASTATI N CALCIUM (atorvastat in calcium), 80 MG, TABLET, ORAL, PRAVIN PHARMACEU, 500 ea. BOTTLE Active [id number] 4 2023 90 Pharmac y Data Transac tion Service Facilit y BISOPROLOL FUMARATE (bisoprolol fumarate), 5 MG, TABLET, ORAL, [employer] 100 ea. BOTTLE Active [id number] 4 2023 90 Pharmac y Data Transac tion Service Facilit y BISOPROLOL FUMARATE (bisoprolol fumarate), 5 MG, TABLET, ORAL, [employer] 100 ea. BOTTLE Active [id number] 4 2023 90 Pharmac y Data Transac tion Service Facilit y ELIQUIS (APIXABAN), 5 MG, TABLET, ORAL, [facility] , 60 ea. BOTTLE Active [id number] 4 2023 180 Pharmac y Data Transac tion Service Facilit y ELIQUIS (APIXABAN), 5 MG, TABLET, ORAL, [facility] , 60 ea. BOTTLE Active [id number] 4 2023 180 Pharmac y Data Transac tion Service Facilit y ELIQUIS (APIXABAN), 5 MG, TABLET, ORAL, [facility] , 60 ea. BOTTLE Cancele d [id number] : 2023 0 Pharmac y Data Transac tion Service Facilit y ELIQUIS (APIXABAN), 5 MG, TABLET, ORAL, [facility] , 60 ea. BOTTLE Cancele d [id number] : 2023 0 Pharmac y Data Transac tion Service Facilit y ELIQUIS (APIXABAN), 5 MG, TABLET, ORAL, [facility] , 60 ea. BOTTLE Active [id number] 4 2023 60 Pharmac y Data Transac tion Service Facilit y FINASTERIDE (FINASTERID E), 5 MG, TABLET, ORAL, EXELAN PHARMACE, 90 ea. BOTTLE Active [id number] 4 2023 90 Pharmac y Data Transac tion Service Facilit y FINASTERIDE (FINASTERID E), 5 MG, TABLET, ORAL, EXELAN PHARMACE, 90 ea. BOTTLE Active [id number] 4 2023 90 Pharmac y Data Transac tion Service Facilit y FINASTERIDE (FINASTERID E), 5 MG, TABLET, ORAL, EXELAN PHARMACE, 90 ea. BOTTLE Active [id number] 4 2023 90 Pharmac y Data Transac tion Service Facilit y MULTAQ (DRONEDARON E HYDROCHLORI DE), 400 MG, TABLET, ORAL, SANOFI-AVEN TIS, 60 ea. BOTTLE Active [id number] 4 2023 180 Pharmac y Data Transac tion Service Facilit y MULTAQ (DRONEDARON E HYDROCHLORI DE), 400 MG, TABLET, ORAL, SANOFI-AVEN TIS, 60 ea. BOTTLE Active [id number] 4 2023 60 Pharmac y Data Transac tion Service Facilit y MULTAQ (DRONEDARON E HYDROCHLORI DE), 400 MG, TABLET, ORAL, SANOFI-AVEN TIS, 60 ea. BOTTLE Active [id number] 4 2023 60 Pharmac y Data Transac tion Service Facilit y POTASSIUM CITRATE (POTASSIUM CITRATE), 10MEQ, TABLET SA, ORAL, UPSHER PICKERING, 100 ea. BOTTLE Active [id number] 4 2023 200 Pharmac y Data Transac tion Service Facilit y POTASSIUM CITRATE (POTASSIUM CITRATE), 10MEQ, TABLET SA, ORAL, UPSHER PICKERING, 100 ea. BOTTLE Active [id number] 4 2023 200 Pharmac y Data Transac tion Service Facilit y Immunizations Combined list of available immunizations from the Department of Defense and Veterans Affairs facilities. Immunization Series Date Given Administered By Site Reaction Lot Number CVX Code Drug Manager Corporate Marketing Status Comments Source Tdap 2019 BOGDASARIAN, () Not Given Tdap [facility] Influenza, injectable, MDCK, quadrivalent, preservative 2018 ANNABEL,D () Not Given Influenza , injectabl e, MDCK, quadrival ent, preservat mele [facility] zoster recombinant 2018 ANNABEL,D () Not [...]
--- OUTSIDE RECORDS SUMMARY | 2024-06-18 17:11 | XMS_ITS ---
Author Organization Moris Yu MD Address [address] [place] [phone] Care Team Providers Care It Programmer Name Role Phone Moris Yu Primary Care Provider REASON FOR VISIT UGI orders Encounters Encounter Location Date Provider Diagnosis Moris Yu MD [address] [place] [address] [place] [phone] 04/05/2024 Moris Yu Abnormal computed tomography of abdomen and pelvis R93.5 Assessments Encounter Date Diagnosis (ICD Code) Assessment Notes Treatment Notes Treatment Clinical Notes Section Notes 04/05/2024 Abnormal computed tomography of abdomen and pelvis (ICD-10 - R93.5) Plan Of Treatment Pending Test Test Name Order Date XR GI SERIES 04/05/2024 Next Appt Details Provider Name:Moris delgadillo, 09/06/2024 08:00:00 AM, [address] [place] [address], [address], [phone], Provider Name:Moris delgadillo, 09/13/2024 02:00:00 PM, [address] [place] [address], [address], [phone], Provider Name:Moris delgadillo, 03/06/2025 08:00:00 AM, [address] [place] [address], [address], [phone], Provider Name:Moris delgadillo, 03/13/2025 02:30:00 PM, [address] [place] [address], [address], [phone], Progress Notes * Erasmo QUEVEDOOB: 6 (78 yo M)Acc No.[id number]:04/05/2024 Patient:?Erasmo QUEVEDO :1945???Age:78 Y???Sex:Male Address:[address] [phone] Subjective: * Chief Complaints: * ???UGI orders * Medical History:? * Surgical History:? * Hospitalization/Major Diagno stic Procedure:? * Medications:? Objective: * Vitals:? * Physical Examination:? Assessment: * Assessment: 1.?Abnormal computed tomogra phy of abdomen and pelvis - R93.5??? Plan: * Treatment: * Procedure Codes:? * true * Date:? Generated for Marie vázquez/Jacob/eTtitasmitting on:?06/18/2024 05:11 PM EDT
--- OUTSIDE RECORDS SUMMARY | 2024-06-18 17:12 | XMS_ITS | Patient Health Record ---
Author Organization Moris Yu MD Address [address] [place] [phone] Care Team Providers Care Application Security Consultant Name Role Phone Moris Yu Primary [...] Panel Reviewed date:07/14/2023 08:11:47 PM Interpretation: Performing Lab:[address] [address] Notes/Report: Bilirubin Total 1.0 0.0-1.0 mg/dL Bilirubin Direct 0.4 0.0-0.5 mg/dL Aspartate Amino Transferase 23 5-37 U/L Alanine Aminotransferase 20 0-40 U/L Total Protein 7.5 6.5-8.0 g/dL Albumin Level 3.8 3.5-5.0 g/dL Alkaline Phosphatase 63 39-117 U/L Lipid Panel with Reflex Reviewed date:07/14/2023 08:11:57 PM Interpretation: Performing Lab:[address] [address] Notes/Report: Triglycerides 97 <150 mg/dL Desirable Triglyceride: [...] ff Reviewed date:03/01/2024 11:46:39 AM Interpretation: Performing Lab:[facility], [address] [place] [phone] Notes/Report: White Blood Count 5.6 4.8-10.8 X10*3/uL [...] NRBC Abs Auto 0.000 0.0-0.012 X10*3/uL Comprehensive [place]. Panel Fa st Reviewed date:03/01/2024 12:19:08 PM Interpretation: Performing Lab:[facility], [address] [place] [phone] Notes/Report: Sodium 141 135-145 mmol/L Potassium 4.4 [...] Panel Reviewed date:03/01/2024 12:18:48 PM Interpretation: Performing Lab:[facility], [address] [place] [phone] Notes/Report: Triglycerides 76 <150 mg/dL Desirable Triglyceride: [...] (Free>4and<10) Reviewed date:03/01/2024 12:19:16 PM Interpretation: Performing Lab:[address] [address] Notes/Report: PSA,Total (Free>4and<10) 0.20 0.00-4.00 ng/mL A [...] Reviewed date:03/08/2024 11:48:58 AM Interpretation:BETSY 03/08/24 Performing Lab:[address] [address] Notes/Report: Urine, Clean Catch Color Urine Yellow Appearance Urine Hazy PH 6.0 5.0-9.0 Glucose Urine UA Negative Negative mg/dL Urine Blood Large (3+) Negative Specific [place] - Urine 1.020 1.005-1.025 Urine Protein Trace [...] date:06/25/2023 05:49:35 PM Interpretation: Performing Lab: Notes/Report: [address] [address] [address] Scan Report Signed Patient: Erasmo Quevedo MR#: [id number] 70 : 1945 Acct:[id number] Age/Sex: 78 / M ADM Date: 06/19/23 Loc: .CT Attending Dr: Sebastian Patricia MD Ordering Physician: Sebastian Patricia MD Date of Service: 06/19/23 Procedure(s): CT chest wo IV con Accession Number(s): [id number] cc: Moris Yu MD; Sebastian Patricia MD [...] in OV> 06/24/23 1154 DD/ 1042 TD/TT: Waiter/Waitress Buffet: SLOANE [address] [address] [address] Scan Report Signed Patient: Chris Quevedo MR#: [id number] 70 : 1945 Acct:[id number] Age/Sex: 78 / M ADM Date: 06/19/23 Loc: HO.CT Attending Dr: Sebastian Patricia MD Ordering Physician: Sebastian Patricia MD Date of Service: 06/19/23 Procedure(s): CT bunny st wo IV con Accession Number(s): [id number] cc: Moris Yu MD; Sebastian Patricia MD [...] in OV> 06/24/23 1154 DD/ 1042 TD/TT: Opera Singer ist: SS Hold Gold Reviewed date:07/14/2023 08:13:36 PM Interpretation: Performing Lab:[facility], [address] [place] [phone] Notes/Report: Ebenezer Gold See Note Specimen held untested for 24 hours; Call to request Chemistry testing. Glucose, Whole Blood Reviewed date:08/21/2023 06:52:52 AM Interpretation: Performing Lab:[facility], [address] [place] [phone] Notes/Report: Glucose, Whole Blood 117 60-115 mg/dL METER # : [id number] Urine Culture Reviewed date:08/22/2023 12:41:19 PM Interpretation: Performing Lab:[facility], [address] [place] [address] Notes/Report: Urine Culture No growth. UA ClnCatch+Micro w/rflx Cul t Reviewed date:08/22/2023 04:59:33 PM Interpretation: Performing Lab:[facility], [address] [place] [phone] Notes/Report: Urine, Catheterized Color Urine Dark Yellow Appearance Urine Cloudy PH 6.5 5.0-9.0 Glucose Urine UA Negative Negative mg/dL Urine Blood Large (3+) Negative Specific [place] - Urine 1.025 1.005-1.025 Urine Protein Trace [...] date:08/21/2023 06:49:40 AM Interpretation: Performing Lab: Notes/Report: [address] [address] [address] Scan Report Signed Patient: Erasmo Quevedo MR#: [id number] 70 : 1945 Acct:[id number] Age/Sex: 78 / M ADM Date: 08/20/23 Loc: HO.ED Attending Dr: Ordering Physician: Mercedes Gonzales Date of Service: 08/20/23 Procedure(s): CT soft tissue neck w IV con Accession Number(s): [id number] cc: Moris Yu MD; Mercedes Gonzales EXAMINATION: [...] Klein in OV> 08/20/232051 DD/ 30 TD/TT: Waiter/Waitress Buffet: [place] [address] [place] Scan Report Signed Patient: Chris Quevedo MR#: [id number] 70 : 1945 Acct:[id number] Age/Sex: 78 / M ADM Date: 08/20/23 Loc: HO.ED Attending Dr: Ordering Physician: Mercedes Gonzales Date of Service: 08/20/23 Procedure(s): CT sof t tissue neck w IV con Accession Number(s): [id number] cc: Moris Yu MD; Mercedes Gonzales EXAMINATION: [...] Klein in OV> 08/20/232051 DD/ 30 TD/TT: Waiter/Waitress Buffet: CT head/brain wo con Reviewed date:08/21/2023 06:50:20 AM Interpretation: Performing Lab: Notes/Report: [address] [address] [address] Scan Report Signed Patient: Erasmo Quevedo MR#: [id number] 70 : 1945 Acct:[id number] Age/Sex: 78 / M ADM Date: 08/20/23 Loc: HO.ED Attending Dr: Ordering Physician: Mercedes Gonzales Date of Service: 08/20/23 Procedure(s): CT head/brain wo IV con Accession Number(s): [id number] cc: Moris Yu MD; Mercedes Gonzales EXAMINATION: [...] Klein in OV> 08/20/232036 DD/ 29 TD/TT: Waiter/Waitress Buffet: [address] [address] [address] Scan Report Signed Patient: Chris Quevedo MR#: [id number] 70 : 1945 Acct:[id number] Age/Sex: 78 / M ADM Date: 08/20/23 Loc: HO.ED Attending Dr: Ordering Physician: Mercedes Gonzales Date of Service: 08/20/23 Procedure(s): CT head/brain wo IV con Accession Number(s): [id number] cc: Moris Yu MD; Mercedes Gonzales EXAMINATION: [...] Klein in OV> 08/20/232036 DD/ 29 TD/TT: Waiter/Waitress Buffet: CT facial bones wo con Reviewed date:08/21/2023 06:51:02 AM Interpretation: Performing Lab: Notes/Report: [address] [address] [address] Scan Report Signed Patient: Erasmo Quevedo MR#: [id number] 70 : 1945 Acct:[id number] Age/Sex: 78 / M ADM Date: 08/20/23 Loc: HO.ED Attending Dr: Ordering Physician: Mercedes Gonzales Date of Service: 08/20/23 Procedure(s): CT facial bones wo IV con Accession Number(s): [id number] cc: Moris Yu MD; Mercedes Gonzales EXAMINATION: [...] MD in OV> 08/20/232302 DD/ 42 TD/TT: Waiter/Waitress Buffet: [address] [address] [address] Scan Report Signed Patient: Chris Quevedo MR#: [id number] 70 : 1945 Acct:[id number] Age/Sex: 78 / M ADM Date: 08/20/23 Loc: HO.ED Attending Dr: Ordering Physician: Mercedes Gonzales Date of Service: 08/20/23 Procedure(s): CT fac ial bones wo IV con Accession Number(s): [id number] cc: Moris Yu MD; Mercedes Gonzales EXAMINATION: [...] MD in OV> 08/20/232302 DD/ 42 TD/TT: Waiter/Waitress Buffet: US abdomen limited Reviewed date:08/21/2023 06:51:42 AM Interpretation: Performing Lab: Notes/Report: [address] [address] Ultrasound Report Signed Patient: Erasmo Quevedo MR#: [id number] 70 : 1945 Acct:[id number] Age/Sex: 78 / M ADM Date: 08/20/23 Loc: HO.ED Attending Dr: Ordering Physician: Mercedes Gonzales Date of Service: 08/20/23 Procedure(s): US abdomen limited Accession Number(s): [id number] cc: Moris Yu MD; Mercedes Gonzales EXAMINATION: [...] Klein in OV> 08/20/232006 DD/ 99 TD/TT: Waiter/Waitress Buffet: [address] [address] Ultrasound Report Signed Patient: Chris Quevedo MR#: [id number] 70 : 1945 Acct:[id number] Age/Sex: 78 / M ADM Date: 08/20/23 Loc: HO.ED Attending Dr: Ordering Physician: Mercedes Gonzales Date of Service: 08/20/23 Procedure(s): US abd omen limited Accession Number(s): [id number] cc: Moris Yu MD; Mercedes Gonzales EXAMINATION: [...] Klein in OV> 08/20/232006 DD/ 99 TD/TT: Waiter/Waitress Buffet: XR chest 1V Reviewed date:08/21/2023 06:52:43 AM Interpretation: Performing Lab: Notes/Report: [address] [address] XRay Report Signed Patient: Erasmo Quevedo MR#: [id number] 70 : 1945 Acct:[id number] Age/Sex: 78 / M ADM Date: 08/20/23 Loc: HO.ED Attending Dr: Ordering Physician: Mercedes Gonzales Date of Service: 08/20/23 Procedure(s): XR chest 1V Accession Number(s): [id number] cc: Moris Yu MD; Mercedes Gonzales EXAMINATION: [...] MD in OV> 08/20/231931 DD/ 43 TD/TT: Waiter/Waitress Buffet: [place] [address] XRay Report Signed Patient: Chris Quevedo MR#: [id number] 70 : 1945 Acct:[id number] Age/Sex: 78 / M ADM Date: 08/20/23 Loc: .ED Attending Dr: Ordering Physician: Mercedes Gonzales Date of Service: 08/20/23 Procedure(s): XR bunny st 1V Accession Number(s): [id number] cc: Moris Yu MD; Mercedes Gonzales EXAMINATION: [...] MD in OV> 08/20/231931 DD/ 43 TD/TT: Waiter/Waitress Buffet: Complete Blood Count no Diff Reviewed date:08/21/2023 05:13:39 PM Interpretation: Performing Lab:[facility], [address] [place] [phone] Notes/Report: White Blood Count 10.3 4.8-10.8 X10*3/uL [...] ff Reviewed date:08/21/2023 06:48:20 AM Interpretation: Performing Lab:[facility], [address] [place] [phone] Notes/Report: White Blood Count 10.0 4.8-10.8 X10*3/uL [...] Panel Reviewed date:08/21/2023 06:52:11 AM Interpretation: Performing Lab:[facility], [address] [place] [phone] Notes/Report: Sodium 138 135-145 mmol/L Potassium 4.3 [...] Estimated Glomerular Filt Rate 47 NOTE: For -Citizen [place] individuals, multiply the result by 1.210. Chronic [...] Phosphorus Reviewed date:08/21/2023 06:48:29 AM Interpretation: Performing Lab:[facility], [address] [place] [address] Notes/Report: Phosphorus 2.6 2.7-4.5 mg/dL Magnesium Reviewed date:08/21/2023 06:47:56 AM Interpretation: Performing Lab:[facility], [address] [place] [phone] Notes/Report: Magnesium 1.9 1.6-2.6 mg/dL Venous Blood Gases - POC Reviewed date:08/21/2023 06:47:48 AM Interpretation: Performing Lab:[facility], [address] [place] [phone] Notes/Report: VBG pH 7.40 7.32-7.43 METER #: [id number] additional_comment: Ganga harper lynne henriqueraymondc VBG pCO2 37 METER #: [id number] additional_comment: Ganga harper lynne henriquezc VBG pO2 26 METER #: [id number] additional_comment: Ganga harper lynne henriquezc VBG Base Excess -0.9 METER #: [id number] additional_comment: Ganga harper lynne henriquezc VBG HCO3 23 22-26 mmol/L METER #: [id number] additional_comment: Ganga harper peterbb henriquezc VBG O2 % Saturation 36.0 METER #: [id number] additional_comment: Ganga harper lynne acevesc CDiff Gene PCR Reviewed date:08/22/2023 12:32:10 PM Interpretation: Performing Lab:[facility], [address] [place] [phone] Notes/Report: CALLED ICU 1245 LEAT CDiff Gene PCR NEGATIVE Negative If C. difficile strongly suspected despite one negative test, a second test may be sent vs. empiric treatment for C. difficile infection. Complete Blood Count no Diff Reviewed date:08/22/2023 12:42:16 PM Interpretation: Performing Lab:[facility], [address] [place] [phone] Notes/Report: White Blood Count 8.4 4.8-10.8 X10*3/uL [...] Panel Reviewed date:08/22/2023 12:40:03 PM Interpretation: Performing Lab:[facility], [address] [place] [phone] Notes/Report: Sodium 140 135-145 mmol/L Potassium 3.8 [...] Estimated Glomerular Filt Rate 45 NOTE: For -Citizen [place] individuals, multiply the result by 1.210. Chronic Kidney Disease: Estimated GFR < 60 mL/min/1.73m2 Severe Kidney Disease: Estimated GFR < 15 mL/min/1.73m2 Glucose Random 92 60-115 mg/dL Calcium 9.2 8.4-10.2 mg/dL Phosphorus Reviewed date:08/22/2023 12:38:52 PM Interpretation: Performing Lab:[facility], [address] [place] [address] Notes/Report: Phosphorus 3.0 2.7-4.5 mg/dL Magnesium Reviewed date:08/22/2023 12:32:17 PM Interpretation: Performing Lab:[facility], [address] [place] [phone] Notes/Report: Magnesium 2.1 1.6-2.6 mg/dL XR chest 1V Reviewed date:08/22/2023 12:39:44 PM Interpretation: Performing Lab: Notes/Report: [address] [place] [address] XRay Report Signed Patient: Erasmo Quevedo MR#: [id number] 70 : 1945 Acct:[id number] Age/Sex: 78 / M ADM Date: 08/21/23 Loc: [facility] 470-[address]: Pat Patricia NP Ordering Physician: Pat Patricia NP Date of Service: 08/22/23 Procedure(s): XR chest 1V Accession Number(s): [id number] cc: Moris Yu MD; Pat Patricia NP [...] Timmons MD Signed By: <Electronically signed by Arua Timmons MD in OV> 08/22/23 1152 DD/ 1030 TD/TT: Waiter/Waitress Buffet: [address] [address] XRay Report Signed Patient: Chris Quevedo MR#: [id number] 70 : 1945 Acct:[id number] Age/Sex: 78 / M ADM Date: 08/21/23 Loc: [facility] 470-[address]: Pat Patricia NP Ordering Physician: Pat Patricia NP Date of Service: 08/22/23 Procedure(s): XR bunny st 1V Accession Number(s): [id number] cc: Moris Yu MD; Pat Patricia NP [...] in OV> 08/22/23 1152 DD/ 1030 TD/TT: Waiter/Waitress Buffet: Complete Blood Count no Diff Reviewed date:08/23/2023 08:05:06 PM Interpretation: Performing Lab:[facility], [address] [place] [phone] Notes/Report: White Blood Count 7.5 4.8-10.8 X10*3/uL [...] Panel Reviewed date:08/23/2023 08:05:30 PM Interpretation: Performing Lab:[facility], [address] [place] [phone] Notes/Report: Sodium 142 135-145 mmol/L Potassium 3.5 [...] Estimated Glomerular Filt Rate 43 NOTE: For -Citizen [place] individuals, multiply the result by 1.210. Chronic Kidney Disease: Estimated GFR < 60 mL/min/1.73m2 Severe Kidney Disease: Estimated GFR < 15 mL/min/1.73m2 Glucose Random 97 60-115 mg/dL Calcium 9.2 8.4-10.2 mg/dL XR chest 1V Reviewed date:08/26/2023 06:24:12 PM Interpretation: Performing Lab: Notes/Report: [address] [address] XRay Report Signed Patient: Erasmo Quevedo MR#: [id number] 70 : 1945 Acct:[id number] Age/Sex: 78 / M ADM Date: 08/21/23 Loc: [facility] 468-[address]: Tamera BARRON Ordering Physician: Tamera Watts Date of Service: 08/25/23 Procedure(s): XR chest 1V Accession Number(s): [id number] cc: Tamera Watts; Moris Yu MD EXAMINATION: [...] in OV> 08/25/23 190 DD/ 06 TD/TT: Waiter/Waitress Buffet: [place] [address] XRay Report Signed Patient: Chris Quevedo MR#: [id number] 70 : 1945 Acct:[id number] Age/Sex: 78 / M ADM Date: 08/21/23 Loc: [facility] 468-[address]: Pavithra BARRON Ordering Physician: Tamera Watts Date of Service: 08/25/23 Procedure(s): XR bunny st 1V Accession Number(s): [id number] cc: Shira Watts; Moris Yu MD EXAMINATION: [...] in OV> 08/25/23 1901 DD/ 0600 TD/TT: Opera Singer ist: BOOM Lactic Acid Reviewed date:09/04/2023 04:43:19 PM Interpretation: Performing Lab:[facility], [address] [place] [phone] Notes/Report: Lactic Acid 1.5 0.5-2.0 mmol/L Urine Culture Reviewed date:09/05/2023 01:04:25 PM Interpretation: Performing Lab:[facility], [address] [place] [phone] Notes/Report: Urine Culture No growth. Blood Culture (First) Reviewed date:09/10/2023 01:28:56 PM Interpretation: Performing Lab:[facility], [address] [place] [phone] Notes/Report: Blood Culture (First) No growth after 5 days. Blood Culture (Second) Reviewed date:09/10/2023 01:28:42 PM Interpretation: Performing Lab:[facility], [address] [place] [phone] Notes/Report: Blood Culture (Second) No growth after [address] chest wo con Reviewed date:09/04/2023 04:44:13 PM Interpretation: Performing Lab: Notes/Report: [address] [place] [address] CT Scan Report Signed Patient: Erasmo Quevedo MR#: [id number] 70 : 1945 Acct:[id number] Age/Sex: 78 / M ADM Date: 09/04/23 Loc: [facility]: Pat Patricia PACKING ROOM INSPECTOR Ordering Physician: Keesha Stein Date of Service: 09/04/23 Procedure(s): CT chest wo IV con Accession Number(s): [id number] cc: Moris Yu MD; Keesha Stein EXAMINATION: [...] in OV> 09/04/23 1621 DD/ 1515 TD/TT: Waiter/Waitress Buffet: TANIKA [place] [address] [place] [address] CT Scan Report Signed Patient: Chris Quevedo MR#: [id number] 70 : 1945 Acct:[id number] Age/Sex: 78 / M ADM Date: 09/04/23 Loc: [facility]-[address]: Pat Patricia PACKING ROOM INSPECTOR Ordering Physician: Keesha Stein Date of Service: 09/04/23 Procedure(s): CT bunny st wo IV con Accession Number(s): [id number] cc: Moris Yu MD; Keesha Setin EXAMINATION: CT CHEST, ABDOMEN AN D PELVIS [...] in OV> 09/04/23 1621 DD/ 1515 TD/TT: Opera Singer ist: TANIKA CT abdomen pelvis wo con Reviewed date:09/04/2023 04:44:58 PM Interpretation: Performing Lab: Notes/Report: [address] [address] [address] Scan Report Signed Patient: Erasmo Quevedo MR#: [id number] 70 : 1945 Acct:[id number] Age/Sex: 78 / M ADM Date: 09/04/23 Loc: [facility]-[address]: Pat Patricia PACKING ROOM INSPECTOR Ordering Physician: Keesha Stein Date of Service: 09/04/23 Procedure(s): CT abdomen pelvis wo IV con Accession Number(s): [id number] cc: Moris Yu MD; Keesha Stein EXAMINATION: [...] in OV> 09/04/23 1621 DD/ 1515 TD/TT: Waiter/Waitress Buffet: [place] [address] CT Scan Report Signed Patient: Chris Quevedo MR#: [id number] 70 : 1945 Acct:[id number] Age/Sex: 78 / M ADM Date: 09/04/23 Loc: [place] [address]: Pat Patricia PACKING ROOM INSPECTOR Ordering Physician: Keesha Stein Date of Service: 09/04/23 Procedure(s): CT abd omen pelvis wo IV con Accession Number(s): [id number] cc: Moris Yu MD; Keesha Stein EXAMINATION: [...] in OV> 09/04/23 1621 DD/ 1515 TD/TT: Opera Singer ist: TANIKA XR chest 1V Reviewed date:09/04/2023 04:46:00 PM Interpretation: Performing Lab: Notes/Report: [address] [address] XRay Report Signed Patient: Erasmo Quevedo MR#: [id number] 70 : 1945 Acct:[id number] Age/Sex: 78 / M ADM Date: 09/04/23 Loc: HO.ED Attending Dr: Ordering Physician: Keesha Stein Date of Service: 09/04/23 Procedure(s): XR chest 1V Accession Number(s): [id number] cc: Moris Yu MD; Keesha Stein EXAMINATION: [...] in OV> 09/04/23 1444 DD/ 1300 TD/TT: Waiter/Waitress Buffet: [place] [address] XRay Report Signed Patient: Chris Quevedo MR#: [id number] 70 : 1945 Acct:[id number] Age/Sex: 78 / M ADM Date: 09/04/23 Loc: .ED Attending Dr: Ordering Physician: Keesha Stein Date of Service: 09/04/23 Procedure(s): XR bunny st 1V Accession Number(s): [id number] cc: Moris Yu MD; Keesha Stein EXAMINATION: [...] in OV> 09/04/23 1444 DD/ 1300 TD/TT: Waiter/Waitress Buffet: Complete Blood Count Auto Di ff Reviewed date:09/05/2023 01:08:06 PM Interpretation: Performing Lab:[facility], [address] [place] [phone] Notes/Report: White Blood Count 7.4 4.8-10.8 X10*3/uL [...] Panel Reviewed date:09/05/2023 01:02:01 PM Interpretation: Performing Lab:[address] [address] Notes/Report: Sodium 139 135-145 mmol/L Potassium 3.9 [...] Estimated Glomerular Filt Rate 35 NOTE: For -Citizen [place] individuals, multiply the result by 1.210. Chronic Kidney Disease: Estimated GFR < 60 mL/min/1.73m2 Severe Kidney Disease: Estimated GFR < 15 mL/min/1.73m2 Glucose Random 88 60-115 mg/dL Calcium 9.5 8.4-10.2 mg/dL Magnesium Reviewed date:09/05/2023 09:55:27 AM Interpretation: Performing Lab:[facility], [address] [place] [phone] Notes/Report: Magnesium 2.2 1.6-2.6 mg/dL FL guidance in OR Reviewed date:09/10/2023 01:29:32 PM Interpretation: Performing Lab: Notes/Report: [address] [address] Fluoroscopy Report Signed Patient: Erasmo Quevedo MR#: [id number] 70 : 1945 Acct:[id number] Age/Sex: 78 / M ADM Date: 09/04/23 Loc: HO.S3 363-[address]: Pat Patricia NP Ordering Physician: Kuldip Ibarra MD Date of Service: 09/05/23 Procedure(s): FL guidance in OR Accession Number(s): [id number] cc: Kuldip Ibarra MD; Moris Yu MD [...] in OV> 09/09/23 153 DD/ 184 TD/TT: Waiter/Waitress Buffet: [place] [address] Fluoroscopy Report Signed Patient: Chris Quevedo MR#: [id number] 70 : 1945 Acct:[id number] Age/Sex: 78 / M ADM Date: 09/04/23 Loc: HO.S3 363-[address]: Pat Patricia NP Ordering Physician: Kuldip Ibarra MD Date of Service: 09/05/23 Procedure(s): FL guidance in OR Accession Number(s): [id number] cc: Leonardo Ibarra MD; Moris Yu MD [...] in OV> 09/09/23 1538 DD/ 1845 TD/TT: Opera Singer ist: PN Creatinine Reviewed date:09/06/2023 04:10:25 PM Interpretation: Performing Lab:[facility], [address] [place] [phone] Notes/Report: Creatinine 1.63 0.5-1.4 mg/dL Creatinine Clr Calc Pharmacy 43.4 eGFR (calculated from the MDRD study equation) and eCrCl (calculated from the Cockcroft-Gault equation) are based on different parameters and may not yield comparable results. If eCrCl result is absurd, please check patient's height/weight. Estimated Glomerular Filt Rate 41 NOTE: For -Citizen [place] individuals, multiply the result by 1.210. Chronic Kidney Disease: Estimated GFR < 60 mL/min/1.73m2 Severe Kidney Disease: Estimated GFR < 15 mL/min/1.73m2 Hold Lav - Possible Hematolo gy Reviewed date:09/07/2023 12:36:28 PM Interpretation: Performing Lab:[facility], [address] [place] [phone] Notes/Report: Hold Lav - Possible Hematology SEE NOTE Specimen will be held untested for 8 hours. Call Hematology if testing is desired. Basic Metabolic Panel Reviewed date:09/07/2023 12:37:28 PM Interpretation: Performing Lab:[facility], [address] [place] [phone] Notes/Report: Sodium 138 135-145 mmol/L Potassium 3.8 [...] Estimated Glomerular Filt Rate 58 NOTE: For -Citizen Of [place] individuals, multiply the result by 1.210. Chronic Kidney Disease: Estimated GFR < 60 mL/min/1.73m2 Severe Kidney Disease: Estimated GFR < 15 mL/min/1.73m2 Glucose Random 98 60-115 mg/dL Calcium 8.7 8.4-10.2 mg/dL Lactic Acid Reviewed date:09/15/2023 10:08:39 AM Interpretation: Performing Lab:[address] [address] Notes/Report: Lactic Acid 1.3 0.5-2.0 mmol/L Blood Culture (First) Reviewed date:09/20/2023 08:17:24 PM Interpretation: Performing Lab:[address] [address] Notes/Report: Blood Culture (First) No growth after 5 days. Blood Culture (Second) Reviewed date:09/20/2023 08:16:12 PM Interpretation: Performing Lab:[address] [address] Notes/Report: Blood Culture (Second) No growth after 5 days. GI Panel Reviewed date:09/16/2023 04:20:02 PM Interpretation: Performing Lab:[address] [address] Notes/Report: Campylobacter Not Detected Not Detect. Plesiomonas [...] is performed by Multiplexed PCR, utilizing the CiiNOW Array. CT abdomen pelvis wo con Reviewed date:09/15/2023 10:09:52 AM Interpretation: Performing Lab: Notes/Report: [place] [address] CT Scan Report Signed Patient: Erasmo Quevedo MR#: [id number] 70 : 1945 Acct:[id number] Age/Sex: 78 / M ADM Date: 09/14/23 Loc: HO.ED Attending Dr: Ordering Physician: Beverly Sanchez MD Date of Service: 09/14/23 Procedure(s): CT abdomen pelvis wo IV con Accession Number(s): [id number] cc: Moris Yu MD; Beverly Sanchez MD [...] MD in OV> 09/14/232200 DD/ 54 TD/TT: Waiter/[employer]ress [employer]: [address] [address] [address] Scan Report Signed Patient: Chris Quevedo MR#: [id number] 70 : 1945 Acct:[id number] Age/Sex: 78 / M ADM Date: 09/14/23 Loc: HO.ED Attending Dr: Ordering Physician: Beverly Sanchez MD Date of Service: 09/14/23 Procedure(s): CT abd omen pelvis wo IV con Accession Number(s): [id number] cc: Moris Yu MD; Beverly Sanchez MD [...] MD in OV> 09/14/232200 DD/ 54 TD/TT: Opera Singer ist: SS Complete Blood Count Auto Di ff Reviewed date:09/16/2023 04:25:25 PM Interpretation: Performing Lab:[facility], [address] [place] [phone] Notes/Report: White Blood Count 9.5 4.8-10.8 X10*3/uL [...] Panel Reviewed date:09/16/2023 04:19:35 PM Interpretation: Performing Lab:[address] [address] Notes/Report: Sodium 137 135-145 mmol/L Potassium 5.1 [...] Estimated Glomerular Filt Rate 52 NOTE: For -Citizen Of [place] individuals, multiply the result by 1.210. Chronic Kidney Disease: Estimated GFR < 60 mL/min/1.73m2 Severe Kidney Disease: Estimated GFR < 15 mL/min/1.73m2 Glucose Random 87 60-115 mg/dL Calcium 9.0 8.4-10.2 mg/dL Hold Lav - Possible Hematolo gy Reviewed date:09/16/2023 04:13:06 PM Interpretation: Performing Lab:[facility], [address] [place] [phone] Notes/Report: Hold Lav - Possible Hematology SEE NOTE Specimen will be held untested for 8 hours. Call Hematology if testing is desired. Liver Panel Reviewed date:09/16/2023 04:11:11 PM Interpretation: Performing Lab:[facility], [address] [place] [phone] Notes/Report: Bilirubin Total 0.6 0.0-1.0 mg/dL Bilirubin Direct 0.2 0.0-0.5 mg/dL Slight Hem olysis Aspartate Amino Transferase 29 5-37 U/L Slight Hemolysis Alanine Aminotransferase 23 0-40 U/L Total Protein 6.6 6.5-8.0 g/dL Albumin Level 3.1 3.5-5.0 g/dL Alkaline Phosphatase 76 39-117 U/L Basic Metabolic Panel Fastin g Reviewed date:09/16/2023 04:12:46 PM Interpretation: Performing Lab:[facility], [address] [place] [phone] Notes/Report: Sodium 141 135-145 mmol/L Potassium 4.0 [...] Estimated Glomerular Filt Rate 56 NOTE: For -Citizen [place] individuals, multiply the result by 1.210. Chronic Kidney Disease: Estimated GFR < 60 mL/min/1.73m2 Severe Kidney Disease: Estimated GFR < 15 mL/min/1.73m2 Glucose Fasting 76 60-99 mg/dL Calcium 9.1 8.4-10.2 mg/dL Complete Blood Count no Diff Reviewed date:09/18/2023 01:19:22 PM Interpretation: Performing Lab:[facility], [address] [place] [phone] Notes/Report: White Blood Count 7.8 4.8-10.8 X10*3/uL [...] g Reviewed date:09/18/2023 12:40:26 PM Interpretation: Performing Lab:[facility], [address] [place] [phone] Notes/Report: Sodium 139 135-145 mmol/L Potassium 3.7 [...] Estimated Glomerular Filt Rate 55 NOTE: For -Citizen [place] individuals, multiply the result by 1.210. Chronic Kidney Disease: Estimated GFR < 60 mL/min/1.73m2 Severe Kidney Disease: Estimated GFR < 15 mL/min/1.73m2 Glucose Fasting 86 60-99 mg/dL Calcium 8.5 8.4-10.2 mg/dL XR KUB Reviewed date:09/19/2023 12:17:19 PM Interpretation: Performing Lab: Notes/Report: [address] [address] XRay Report Signed Patient: Erasmo Quevedo MR#: [id number] 70 : 1945 Acct:[id number] Age/Sex: 78 / M ADM Date: 09/15/23 Loc: HO.S3 370-[address]: Jefry Álvarez MD Ordering Physician: Jefry Álvarez MD Date of Service: 09/18/23 Procedure(s): XR KUB Accession Number(s): [id number] cc: Moris Yu MD; Jefry Álvarez MD [...] in OV> 09/19/23 1012 DD/ 1619 TD/TT: Waiter/Waitress Buffet: [place] [address] XRay Report Signed Patient: Chris Quevedo MR#: [id number] 70 : 1945 Acct:[id number] Age/Sex: 78 / M ADM Date: 09/15/23 Loc: .S3 370-[address]: Mat Álvarez MD Ordering Physician: Jefry Álvarez MD Date of Service: 09/18/23 Procedure(s): XR KUB Accession Number(s): [id number] cc: Moris Yu MD; Jefry Álvarez MD [...] in OV> 09/19/23 1012 DD/ 1619 TD/TT: Opera Singer ist: SS Complete Blood Count Auto Di ff Reviewed date:10/26/2023 09:59:23 AM Interpretation: Performing Lab:[address] [address] Notes/Report: White Blood Count 5.3 4.8-10.8 X10*3/uL [...] te Reviewed date:10/25/2023 02:39:29 PM Interpretation: Performing Lab:[facility], [address] [place] [phone] Notes/Report: Erythrocyte Sedimentation Rate 23 0-15 MM/HR Patients with polycythemia and many hemoglobin abnormalities may have depressed sed rates whereas patients with anemia may have elevated sed rates. Liver Panel Reviewed date:10/25/2023 02:40:10 PM Interpretation: Performing Lab:[facility], [address] [place] [phone] Notes/Report: Bilirubin Total 0.9 0.0-1.0 mg/dL Bilirubin Direct 0.4 0.0-0.5 mg/dL Aspartate Amino Transferase 18 5-37 U/L Alanine Aminotransferase 17 0-40 U/L Total Protein 6.8 6.5-8.0 g/dL Albumin Level 3.4 3.5-5.0 g/dL Alkaline Phosphatase 75 39-117 U/L Basic Metabolic Panel Reviewed date:10/26/2023 09:58:59 AM Interpretation: Performing Lab:[facility], [address] [place] [phone] Notes/Report: Sodium 141 135-145 mmol/L Potassium 4.3 3.3-5.1 mmol/L Chloride 110 96-108 mmol/L Carbon Dioxide 25 22-29 mmol/L Anion Gap 10 12-20 Blood Urea Nitrogen 20 9-16 mg/dL Creatinine 1.99 0.5-1.4 mg/dL Estimated Glomerular Filt Rate 33 NOTE: For -Citizen Of [place] individuals, multiply the result by 1.210. Chronic Kidney Disease: Estimated GFR < 60 mL/min/1.73m2 Severe Kidney Disease: Estimated GFR < 15 mL/min/1.73m2 Glucose Random 107 60-115 mg/dL Calcium 9.6 8.4-10.2 mg/dL FL guidance in OR Reviewed date:03/05/2024 12:54:47 PM Interpretation: Performing Lab: Notes/Report: [address] [address] Fluoroscopy Report Signed Patient: Erasmo Quevedo MR#: [id number] 70 : 1945 Acct:[id number] Age/Sex: 78 / M ADM Date: 10/31/23 Loc: .[facility] Attending Dr: Kuldip Ibarra MD Ordering Physician: Kuldip Ibarra MD Date of Service: 10/31/23 Procedure(s): FL guidance in OR Accession Number(s): [id number] cc: Kuldip Ibarra MD; Moris Yu MD [...] 03/05/24 0852 DD/ 0758 TD/TT: 10/31/23 0831 Waiter/Waitress Buffet: [place] [address] Fluoroscopy Report Signed Patient: Chris Quevedo MR#: [id number] 70 : 1945 Acct:[id number] Age/Sex: 78 / M ADM Date: 10/31/23 Loc: .[facility] Attending Dr: Kuldip Ibarra MD Ordering Physician: Kuldip Ibarra MD Date of Service: 10/31/23 Procedure(s): FL guidance in OR Accession Number(s): [id number] cc: Leonardo Ibarra MD; Moris Yu MD [...] by: Jeni Hart MD 03/05/2024 08:52 AM [facility] Dictated By: Jeni Hart MD Signed By: <Electronically signed by Jeni Hart MD in OV> 03/05/24 0852 DD/ 0758 TD/TT: 10/31/23 0831 Waiter/Waitress Buffet: TANG Urine Culture Reviewed date:11/19/2023 04:14:44 PM Interpretation: Performing Lab:[address] [address] Notes/Report: Urine Culture Report Result Urine Culture < 10,000 cfu/ml Complete Blood Count Auto Di ff Reviewed date:01/03/2024 12:30:08 PM Interpretation: Performing Lab:[address] [address] Notes/Report: White Blood Count 5.7 4.8-10.8 X10*3/uL [...] Panel Reviewed date:01/03/2024 12:18:50 PM Interpretation: Performing Lab:[facility], [address] [place] [phone] Notes/Report: Sodium 139 135-145 mmol/L Potassium 4.4 3.3-5.1 mmol/L Chloride 110 96-108 mmol/L Carbon Dioxide 23 22-29 mmol/L Anion Gap 10 12-20 Blood Urea Nitrogen 17 9-16 mg/dL Creatinine 1.74 0.5-1.4 mg/dL Estimated Glomerular Filt Rate 38 NOTE: For -Citizen [place] individuals, multiply the result by 1.210. Chronic Kidney Disease: Estimated GFR < 60 mL/min/1.73m2 Severe Kidney Disease: Estimated GFR < 15 mL/min/1.73m2 Glucose Random 97 60-115 mg/dL Calcium 9.7 8.4-10.2 mg/dL XR KUB Reviewed date:02/18/2024 03:50:04 PM Interpretation: Performing Lab: Notes/Report: [address] [address] XRay Report Signed Patient: Erasmo Quevedo MR#: [id number] 70 : 1945 Acct:[id number] Age/Sex: 78 / M ADM Date: 02/15/24 Loc: [facility] Attending Dr: Kuldip Ibarra MD Ordering Physician: Kuldip Ibarra MD Date of Service: 02/15/24 Procedure(s): XR KUB Accession Number(s): [id number] cc: Kuldip Ibarra MD; Moris Yu MD [...] OV> 02/17/242038 DD/ 1150 TD/TT: 02/15/24 1205 Waiter/Waitress Buffet: [place] [address] XRay Report Signed Patient: Chris Quevedo MR#: [id number] 70 : 1945 Acct:[id number] Age/Sex: 78 / M ADM Date: 02/15/24 Loc: HO.XRAY Attending Dr: Kuldip Ibarra MD Ordering Physician: Kuldip Ibarra MD Date of Service: 02/15/24 Procedure(s): XR KUB Accession Number(s): [id number] cc: Leonardo Ibarra MD; Moris Yu MD [...] OV> 02/17/242038 DD/ 1150 TD/TT: 02/15/24 1205 Waiter/Waitress Buffet: Urine Culture Reviewed date:03/03/2024 06:22:09 PM Interpretation: Performing Lab:[facility], [address] [place] [phone] Notes/Report: Urine Culture No growth. CT abdomen pelvis wo con Reviewed date:04/05/2024 10:26:12 AM Interpretation: Performing Lab: Notes/Report: [address] [address] [address] Scan Report Signed Patient: Erasmo Quevedo MR#: [id number] 70 : 1945 Acct:[id number] Age/Sex: 78 / M ADM Date: 04/03/24 Loc: HO.CT Attending Dr: Kuldip Ibarra MD Ordering Physician: Kuldip Ibarra MD Date of Service: 04/03/24 Procedure(s): CT abdomen pelvis wo IV con Accession Number(s): [id number] cc: Kuldip Ibarra MD; Moris Yu MD Report Number: [id number]: Total DLP = 625.00 mGy-cm CLINICAL HISTORY: [...] 04/04/24 1247 DD/ 1246 TD/TT: 04/04/24 1246 Waiter/Waitress Buffet: [place] [address] CT Scan Report Signed Patient: Chris Quevedo MR#: [id number] 70 : 1945 Acct:[id number] Age/Sex: 78 / M ADM Date: 04/03/24 Loc: HO.CT Attending Dr: Kuldip Ibarra MD Ordering Physician: Kuldip Ibarra MD Date of Service: 04/03/24 Procedure(s): CT abd omen pelvis wo IV con Accession Number(s): [id number] cc: Leonardo Ibarra MD; Moris Yu MD Report Number: [id number]: Total DLP = 625.00 mGy-cm CLINICAL HISTORY: [...] 04/04/24 1247 DD/ 1246 TD/TT: 04/04/24 1246 Waiter/Waitress Buffet: Kidney Stone Reviewed date:05/14/2024 10:06:37 AM Interpretation: Performing Lab:[facility], [address] [place] [phone] Notes/Report: R Ureter S1246 Component 1 SEE NOTE Calcium Oxalate Dihydrate (Weddellite) 20% Calcium Oxalate Monohydrate (Whewellite) 80% Stone Weight 0.003 This test was developed and its analytical performance characteristics have been determined by [employer]. It has not been cleared or approved by the FDA. This assay has been validated pursuant to the CLIA regulations and is used for clinical purposes. THIS TEST WAS PERFORMED AT: [facility] [address] [place] [address] SIDDHARTH ZULUAGA MD,PHD,JAN [facility] KIDNEY STONE Pathology Reviewed date:05/08/2024 07:02:03 PM Interpretation: Performing Lab:[facility], [address] [place] [phone] Notes/Report: ---- Name: SaeErasmo Age/Sex: 79/M : 1945 Unit#: [id number] Attend Dr: Kuldip Ibarra MD Re05/07/24 Status : [facility] Location: JOSE Disch: ---- SPEC : [id number] RECD : 05/07/24 STATUS: DI MORRISON NUM: [id number] JAQUELINE: 05/07/24-140 [facility] DR: Kuldip Ibarra MD ENTERED: 05/07/24 SP TYPE: Surgical OTHR DR: Moris Yu MD ORDERED: GO Diagnosis Right ureteral stone (removal): Calculus identified; macroscopic description only. Comment: The entire specimen was sent for chemical analysis. Please see the laboratory portion of the EMR f or the outside report from [employer]. Clinical History Calculus of ureter Material Received Right ureteral stone Gross Description Received fresh with gauze labeled right ureteral stone? is a 0.2 cm hard, white-odom calculus, forwarded to [facility] for chemical analysis. No soft tissue is identified. Gross description only. CEDS Copies To: Kuldip Ibarra MD [facility] [address] [place] [address] Dr. Marva wood [address] [place] [address] [email or web address] Moris Yu MD [facility] [address] [place] [address] [address] [place] [address] ---- Signed (signature on file) Judit Tejeda 05/08/24 0856 ---- END OF REPORT Urine Culture Reviewed date:05/13/2024 12:07:29 PM Interpretation: Performing Lab:[facility], [address] [place] [phone] Notes/Report: Urine Culture Report Result Urine Culture < 10,000 cfu/ml O:CANALB Christa albicans Urine Culture Quant Urine Culture < 10,000 cfu/mL FL guidance in OR Reviewed date:05/08/2024 07:02:20 PM Interpretation: Performing Lab: Notes/Report: [address] [address] Fluoroscopy Report Signed Patient: Erasmo Quevedo MR#: [id number] 70 : 1945 Acct:[id number] Age/Sex: 79 / M ADM Date: 05/07/24 Loc: [facility] Attending Dr: Kuldip Ibarra MD Ordering Physician: Kuldip Ibarra MD Date of Service: 05/07/24 Procedure(s): FL guidance in OR Accession Number(s): [id number] cc: Kuldip Ibarra MD; Moris Yu MD [...] 05/07/24 1442 DD/ 29 TD/TT: 05/07/24 1350 Waiter/Waitress Buffet: [address] [address] Fluoroscopy Report Signed Patient: Chris Quevedo MR#: [id number] 70 : 1945 Acct:[id number] Age/Sex: 79 / M ADM Date: 05/07/24 Loc: HO.[facility] Attending Dr: Kuldip Ibarra MD Ordering Physician: Kuldip Ibarra MD Date of Service: 05/07/24 Procedure(s): FL guidance in OR Accession Number(s): [id number] cc: Leonardo Ibarra MD; Moris Yu MD [...] 05/07/24 1442 DD/ 1230 TD/TT: 05/07/24 1350 Waiter/Waitress Buffet: Basic Metabolic Panel Reviewed date:06/02/2024 10:00:22 AM Interpretation: Performing Lab:[facility], [address] [place] [phone] Notes/Report: Sodium 140 135-145 mmol/L Potassium 4.0 [...] date:06/03/2024 12:20:03 PM Interpretation: Performing Lab: Notes/Report: [address] [address] XRay Report Signed Patient: Erasmo Quevedo MR#: [id number] 70 : 1945 Acct:[id number] Age/Sex: 79 / M ADM Date: 05/31/24 Loc: [facility] Attending Dr: Mau Hodge MD Ordering Physician: Kuldip Ibarra MD Date of Service: 05/31/24 Procedure(s): XR KUB Accession Number(s): [id number] cc: Kuldip Ibarra MD; Moris Yu MD [...] 06/03/24 1007 DD/ 1217 TD/TT: 05/31/24 1230 Waiter/Waitress Buffet: [address] [address] XRay Report Signed Patient: Chris Quevedo MR#: [id number] 70 : 1945 Acct:[id number] Age/Sex: 79 / M ADM Date: 05/31/24 Loc: HO.XRAY Attending Dr: Mau Hodge MD Ordering Physician: Kuldip Ibarra MD Date of Service: 05/31/24 Procedure(s): XR KUB Accession Number(s): [id number] cc: Leonardo Ibarra MD; Moris Yu MD [...] 06/03/24 1007 DD/ 1217 TD/TT: 05/31/24 1230 Waiter/Waitress Buffet: MT upper GI w air Reviewed date:06/03/2024 12:49:02 PM Interpretation: Performing Lab: Notes/Report: [place] [address] Fluoroscopy Report Signed Patient: Erasmo Quevedo MR#: [id number] 70 : 1945 Acct:[id number] Age/Sex: 79 / M ADM Date: 06/03/24 Loc: HO.XRAY Attending Dr: Moris Yu MD Ordering Physician: Moris Yu MD Date of Service: 06/03/24 Procedure(s): FL upper GI w air Accession Number(s): [id number] cc: Moris Yu MD EXAMINATION: XR FLUOROSCOPY [...] 06/03/24 1133 DD/ 0745 TD/TT: 06/03/24 0820 Waiter/Waitress Buffet: [address] [address] Fluoroscopy Report Signed Patient: Chris Quevedo MR#: [id number] 70 : 1945 Acct:[id number] Age/Sex: 79 / M ADM Date: 06/03/24 Loc: HO.XRAY Attending Dr: Moris Yu MD Ordering Physician: Moris Yu MD Date of Service: 06/03/24 Procedure(s): FL upp er GI w air Accession Number(s): [id number] cc: Moris Yu MD EXAMINATION: XR FLUOROSCOPY [...] 06/03/24 1133 DD/ 0745 TD/TT: 06/03/24 0820 Waiter/Waitress Buffet: ENRIQUE Complete Blood Count Auto Di ff (Not yet reviewed by provider) Interpretation: Performing Lab:[facility], [address] [place] [phone] Notes/Report: White Blood Count 5.6 4.8-10.8 X10*3/uL Red Blood Count 3.77 4.60-5.80 X10*6/uL Hemoglobin 11.9 14.0-18.0 g/dl Hematocrit 36.3 42.0-52.0 % Mean Corpuscular Volume 96.3 80.0-98.0 fL Mean Corpuscular Hemoglobin 31.6 27.0-33.0 pg Mean Corpuscular HGB Conc 32.8 31.0-36.0 g/dl Red Cell Distribution Width 14.5 11.0-16.0 % Platelet Count 167 160-400 X10*3/uL Mean Platelet Volume 11.0 9.4-12.4 fL Neutrophils Percent Auto 74.2 45-73 % Imm Gran Pct Auto 0.4 0.0-0.4 % Lymphocytes Percent Auto 15.8 20-40 % Monocytes Percent Auto 6.9 2-11 % Eosinophils Percent Auto 2.5 0-4 % Basophils Percent Auto 0.2 0-2 % NRBC Pct Auto 0.0 0.0-0.2 /100WBC Neutrophils Absolute Auto 4.2 2.0-8.3 x10*3/uL Imm Gran Abs Auto 0.02 0.00-0.03 X10*3/uL Lymphocytes Absolute Auto 0.9 1.2-4.9 X10*3/uL Monocytes Absolute Auto 0.4 0.1-1.2 X10*3/uL Eosinophils Absolute Auto 0.1 0.0-0.4 X10*3/uL Basophils Absolute Auto 0.0 0.0-0.2 X10*3/uL NRBC Abs Auto 0.000 0.0-0.012 X10*3/uL Reason For Referral No Information Medications Medication [...] needed Inhalation every 4 hrs 07/09/2021 Not-Ashvin st[place]ford Budesonide (Inhalation) once a day, QOD Not-Taking Immunizations Vaccine Route Administration Date Status Comme nts Flu Vaccine Unknown 12/17/2010 Administered Shingles Unknown 06/30/2009 Administered Prevnar 13 Unknown 01/13/2012 Administered Flu Vaccine Unknown 12/07/2011 Administered given at [facility] Flu Vaccine Unknown 11/18/2012 Administered received at [facility] PPSV23 (Pnemovax) IM Intramuscular 09/19/2013 Administered Flu Vaccine Unknown 12/03/2013 Administered was given b [facility] Flu Vaccine Unknown 11/27/2014 Administered Given by [...] W/U Status Risk Notes Problem Erectile dysfunction (615862230) Erectile Dysfunction (607.84) Active confirmed Problem 004975415 Thrombocytopenia (D69.6) Active confirmed Problem 967413019 Paroxysmal atria l fibrillation (I48.0) Active confirmed Problem 041145659 Tubular adenoma of colon (D12.6) Active confirmed Problem 419917973 History of coron shaquille artery disease (Z86.79) Active confirmed Problem 84988631 Sarcoidosis (D86.9) Active confirmed Problem 20400712 Dysthymia (F34.1) Active confirmed Problem 958804944 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) Active confirmed Problem 658952509 Pure hypercholesterolemia (E78.00) Active confirmed Problem Hypercholesterolemia (79808561) Hypercholesterolemia (E78.00) Active confirmed Problem 078231621 BMI 32.0-32.9,ad ult (Z68.32) Active confirmed Problem 392056338 Moderate asthma without complication, unspecified whether persistent (J45.909) Active confirmed Problem 33027375 Chronic congesti ve heart failure, unspecified heart failure type (I50.9) Active confirmed Problem 964461770 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) Active confirmed Problem 184179105 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 confirmed Problem Hypersomnia (63172553) Hypersomnolence (G47.10) Active confirmed Problem 75035759 Other ventricula r tachycardia (I47.29) Active confirmed Problem 998258556 Acute constipati on (K59.00) Active confirmed Vital [...] Diagnosis Moris Yu MD [address] [place] [address] [id number] 07/14/2023 Moris Yu Pure hypercholestero lemia E78.00 Moris Yu MD [address] [place] [address] [id number] 09/11/2023 Moris Yu Paroxysmal atrial fibrillation I48.0 and Gross hematuria R31.0 Moris Yu MD [address] [place] [address] [id number] 03/01/2024 Moris Yu Pure hypercholestero lemia E78.00 ; Thrombocytopenia D69.6 and Chronic congestive heart failure, unspecified heart failure type I50.9 Moris Yu MD [address] [place] [address] Drive [address] [place] [address] [id number] 07/20/2023 Moris Yu Chronic congestive h eart failure, unspecified heart failure type I50.9 ; Hypercholesterolemia E78.00 ; Nonsustained ventricular tachycardia I47.2 and Other ventricular tachycardia I47.29 Moris Yu MD [address] [place] [address] [address] [place] [address] [id number] 08/29/2023 Moris Yu Acute pneumonia J18. 9 ; Thrombocytopenia D69.6 ; Elevated serum creatinine R79.89 ; Lower extremity edema R60.0 ; Gross hematuria R31.0 and Dental abscess K04.7 Moris Yu MD [address] [place] [address] [id number] 09/14/2023 Moris Yu Dysuria R30.0 ; Acut e diarrhea R19.7 and Acute constipation K59.00 Moris Yu MD [address] [place] [address] [id number] 09/25/2023 Moris Yu Status post insertio n of drug eluting coronary artery stent Z95.5 ; Paroxysmal atrial fibrillation I48.0 and Chronic congestive heart failure, unspecified heart failure type I50.9 Moris Yu MD [address] [place] [address] [id number] 03/08/2024 Moris Yu Gross hematuria R31. 0 [...] Moris Yu MD [address] [place] [address] [id number] 08/28/2023 Moris Yu MD [address] [place] [address] [id number] 09/08/2023 Moris Yu MD [address] [place] [address] [id number] 09/08/2023 Moris Yu MD [address] [place] [address] [id number] 09/19/2023 Moris Yu MD [address] [place] [address] [id number] 04/05/2024 Moris Yu Abnormal computed tomography of abdomen and pelvis R93.5 Moris Yu MD [address] [place] [address] [id number] 06/18/2024 Moris Bombardier Diarrhea R19.7 Assessments Encounter Date Diagnosis (ICD [...] of abdomen and pelvis (ICD-10 - R93.5) 06/18/2024 Diarrhea (ICD-10 - R19.7) Order made and faxed to Patient Reg. patient's notified. Patient's will call and make appointment with Dr Srivastava. 03/01/2024 Chronic congestive heart failure, unspecified heart [...] Test Name Order Date Electrocardiogram (EKG) 10/21/2016 CBC w DIFF 06/18/2024 CT BRAIN W&WO CONTRAST 07/08/2022 XR CHEST 2 VIEW PA & LAT 11/07/2016 XR CHEST 2 VIEW PA & LAT 05/17/2011 XR CHEST 2 VIEW PA & LAT 09/07/2015 XR GI SERIES 01/18/2013 XR GI SERIES 04/05/2024 Complete Blood Count Auto Diff Comprehensive Met. Panel 06/18/2024 CT head/brain wo con 07/28/2022 GI Panel 06/18/2024 Future Test Test Name Order Date XR CHEST 2 VIEW PA & LAT 09/05/2023 Next Appt Details Provider Name:Moris Wiggins ier, 09/06/2024 08:00:00 AM, [address] [place] [address], Suite [facility], [place], [place], [phone], Provider Name:Moris Wiggins ier, 09/13/2024 02:00:00 PM, [address] [place] [address], Suite [facility], [place], [place], [phone], Provider Name:Moris Wiggins ier, 03/06/2025 08:00:00 AM, [address] [place] [address], Suite [facility], [place], [place], [phone], Provider Name:Moris Wiggins ier, 03/13/2025 02:30:00 PM, [address] [place] [address], Suite [facility], [place], [place], [phone], Insurance Providers Payer Name Payer Address Payer Phone Subscriber Number Group Number Insured Name Patient Relationship to Insured Coverage Start Date Coverage End Date [employer] [address] [place] [address] [id number] Erasmo Quevedo Self - patient is the insured [facility] [address] [place] [address] [id number] Erasmo Quevedo Self - patient is the insured Medical (General) History Medical History History ICD Code colonoscopy - 04/2006 - repea t 5 years. 07/27/12; colonoscopy 05/14/2013 - repeat 5 years; Colonoscopy done 11/19/[address] Srivastava - no further testing indicated. Achilles bursitis or tendinitis HX of Kidney Stones Incidental Lung Nodule
--- OUTSIDE RECORDS SUMMARY | 2024-06-18 17:12 | XMS_ITS | Clinical Summary ---
Author Organization [facility] Address [address] [place] [address] Care Team Providers Care Low Vision Therapist Name Role Phone Moris Yu MD Primary [...] mg by nebulization daily. 0 Active Tiotropium Lucile Monohydrate (SPIRIVA RESPIMAT) 2.5 MCG/ACT AERS Inhale [...] this topic Medical Devices Implanted Type Area Bar Gauger And Lubricator Tender Device Identifier Shelf Expiration Date Model / Serial / Lot Shell Trident Ii F 58mm 5 Screw Hole Cluster Tritanium - [id number] - [id number] Implanted:Qty: 1 on 08/29/2019 by [place] Sanchez [place] [facility] Right: Hip [employer] [id number] 12/24/2023 702-04-58F / / [id number] Screw Trident Ii 30mm 6.5mm Low Profile Hexagonal Bone - [id number] - [id number] Implanted:Qty: 1 on 08/29/2019 by Ron Sanchez MD [place] [facility] Right: Hip [employer] [id number] 01/08/2024 6108-2449 / / 33TH Insert Trident 10d F 36mm X3 Acetabular Hip - [id number] - [id number] Implanted:Qty: 1 on 08/29/2019 by Ron Sanchez MD [place] [facility] Right: Hip [employer] [id number] 01/14/2024 623-10-36F / / [id number] Screw Trident Ii 30mm 6.5mm Low Profile Hexagonal Bone - 690033 - [id number] Implanted:Qty: 1 on 08/29/2019 by Ron Sanchez MD at [facility] Right: Hip [employer] [id number] 12/10/2023 1772-1589 / / [id number] Stem Hip Neck Angle 127 Degree Accolade Ii Sz6 - [id number] - [id number] Implanted:Qty: 1 on 08/29/2019 by Ron Sanchez MD at [facility] Right: Hip [employer] [id number] 10/04/2022 5564-1339 / / [id number] Head V40 -5mm 36mm Delta Femoral Hip - 999999 - [id number] Implanted:Qty: 1 on 08/29/2019 by Ron Sanchez MD at [facility] Right: Hip [employer] [id number] 07/31/2024 6570-0-036 / / [id number] Advance Directives For more information, please contact: [phone] Latest Code Status on File Code Status [...] way: discussion with patient . Care Teams Low Vision Therapist Relationship Specialty Start Date End Date Moris Yu MD [address] [place] [address] PCP - General Internal Medicine 06/26/19
--- OUTSIDE RECORDS SUMMARY | 2024-06-18 17:12 | XMS_ITS | Clinical Summary ---
Author Organization [facility] Address [address] [place] [address] Phone Care Team Providers Care Abrasive Coating Machine Operator Name Role Phone Moris Yu MD [...] age to complete this topic Insurance Medicare [facility] [place] Medicare [facility] Care Teams Abrasive Coating Machine Operator Relationship Specialty Start Date End Date Moris Yu MD [address] [place] [address] PCP - General Internal Medicine 08/14/20
--- OUTSIDE RECORDS SUMMARY | 2024-06-18 17:12 | XMS_ITS ---
Author Organization Moris Yu MD Address [address] [place] [phone] Care Team Providers Care Sales Project Coordinator Name Role Phone Moris Yu Primary Care Provider [phone] Allergies Allergen (clinical drug ingredient) Drug/Non Drug [...] Location Date Provider Diagnosis Moris Yu MD [address] [place] [address] [place] [phone] 03/08/2024 Moris Yu Gross hematuria R31. 0 [...] 08:00:00 AM, [address], [address], [place], [place], [phone], Provider Name:Moris San Bradyeunice ier, 09/13/2024 02:00:00 PM, [address], [address], [place], [place], [phone], Provider Name:Moris eastmanr, 03/06/2025 08:00:00 AM, [address], [address], [place], [phone], Provider Name:Moris Mena Feliciano eastmanr, 03/13/2025 02:30:00 PM, [address], [address], [place], [phone], Progress Notes * Erasmo QUEVEDO BDOB: (78 yo M)Acc No.[id number]:03/08/2024 Patient:?Erasmo Quevedo B Provider:?Moris Yu MD :1945???Age:78 Y???Sex:Male Rakesh e:03/08/2024 Address:[address]-[address] Subjective: * Chief Complaints: * ???CBACK [...] Pets: none. no Travel outside of the [place]. * Medications:?TakingMultaq 40 0 MG Tablet [...] Auto 0.000 0.0-0. 012 - X10*3/uL ???Lab:Comprehensive [facility]. P iris Fast (Order Date - 03/01/2024) [...] Blood Large (3+) A Negative - ?Specific Chelsea - Urine 1.020 1.005-1.025 - ?Urine Protein [...] MD Date:?0 03/08/2024 Generated for Marie vázquez/Jacob/Komal on:?06/18/2024 05:12 PM EDT History and Physical Notes * [...]
--- OUTSIDE RECORDS SUMMARY | 2024-06-18 17:12 | XMS_ITS | Clinical Summary ---
Author Organization [facility] [facility] it Address [address] [place] [address] Care Team Providers Care Scrap Charger Name Role Phone Moris Yu MD Primary [...] PROCEDURE:TOTAL HIP ARTHROPLASTY;COMMENT:Procedure: REPLACEMENT TOTAL HIP; Surgeon: oRn Sanchez MD; Location: [facility] Service: Orthopedics; Laterality: Right; JOINT REPLACEMENT PROCEDURE:JOINT REPLACEMENT Medical History Medical History Date Comments Asthma 11/08/2016 DX:Asthma Interstitial lung disease ([facility] V24, [facility] V28) 11/08/2016 DX:Interstitial lung disease (HCC) Pulmonary sarcoidosis ([facility] V24) 11/24/2016 DX:Pulmonary sarcoidosis (HCC) Seasonal allergic rhinitis 11/24/2016 DX:Se asonal allergic rhinitis Nephrolithiasis 03/17/2017 DX:Nephrolithias is; COMMENT: 06/29/2015 Hyperlipidemia 04/20/2017 DX:Hyperlipidemi a Asthma DX:Asthma Hypertension DX:Hypertension Kidney damage DX:Kidney damage Osteoarthritis DX:Osteoarthriti s Sarcoidosis, lung ([facility] V24) DX:Sarcoidosis, lung (HCC) PVC (premature ventricular [...] this topic Medical Devices Implanted Type Area Door Clamp Operator Device Identifier Shelf Expiration Date Model / Serial / Lot Shell Trident Ii F 58mm 5 Screw Hole Cluster Tritanium - [id number] Implanted:Qty: 1 on 08/29/2019 by Ron Sanchez MD Right: Hip [employer] [id number] 12/24/2023 702-04-58F / / [id number] Screw Trident Ii 30mm 6.5mm Low Profile Hexagonal Bone - [id number] Implanted:Qty: 1 on 08/29/2019 by Ron Sanchez MD Right: Hip [employer] [id number] 01/08/2024 1030-8625 / / 33TH Insert Trident 10d F 36mm X3 Acetabular Hip - [id number] Implanted:Qty: 1 on 08/29/2019 by Ron Sanchez MD Right: Hip [employer] [id number] 01/14/2024 623-10-36F / / [id number] Screw Trident Ii 30mm 6.5mm Low Profile Hexagonal Bone - [id number] Implanted:Qty: 1 on 08/29/2019 by Ron Sanchez MD Right: Hip [employer] [id number] 12/10/2023 0962-1450 / / 3HYD Stem Hip Neck Angle 127 Degree Accolade Ii Sz6 - [id number] Implanted:Qty: 1 on 08/29/2019 by Ron Sanchez MD Right: Hip [employer] [id number] 10/04/2022 9618-9515 / / [id number] Head V40 -5mm 36mm Delta Femoral Hip - [id number] Implanted:Qty: 1 on 08/29/2019 by Ron Sanchez MD Right: Hip [employer] [id number] 07/31/2024 6570-0-036 / / [id number] Care Teams Scrap Charger Relationship Specialty Start Date End Date Moris Yu MD PCP - General Internal Medicine 01/24/17
--- OUTSIDE RECORDS SUMMARY | 2024-06-18 17:12 | XMS_ITS ---
Author Organization Moris Yu MD Address [address] [place] [phone] Care Team Providers Care Shorer Name Role Phone Moris Yu Primary Care Provider [phone] REASON FOR VISIT Diarrhea Encounters Encounter Location Date Provider Diagnosis Moris Yu MD [address] [place] [address] [place] [phone] 06/18/2024 Moris Yu Diarrhea R19.7 Assessments Encounter [...] call and make appointment with Dr Srivastava. Pending Test Test Name Order Date CBC w DIFF 06/18/2024 Comprehensive Met. Panel 06/18/2024 GI Panel 06/18/2024 Next Appt Details Provider Name:Moris delgadillo, 09/06/2024 08:00:00 AM, [address] [place] [address], [address] [place] [address], [phone], Provider Name:Moris delgadillo, 09/13/2024 02:00:00 PM, [address] [place] [address], [address], [phone], Provider Name:Moris delgadillo, 03/06/2025 08:00:00 AM, [address] [place] [address], [address], [phone], Provider Name:Moris Wiggins elie, 03/13/2025 02:30:00 PM, [address], [address], [place], [phone], Progress Notes * Erasmo QUEVEDO BDOB: (79 yo M)Acc No.[id number]:06/18/2024 Patient:?Erasmo QUEVEDO B :1945???Age:79 Y???Sex:Male Address:[place] [address] [place] [phone] Subjective: * Chief Complaints: * ???Diarrhea * Medical History:? * Surgical History:? * Hospitalization/Major Diagno stic Procedure:? * Medications:? Objective: * Vitals:? * Physical Examination:? Assessment: * Assessment: 1.?Diarrhea - R19.7??? Plan: * Treatment: * Procedure Codes:? * true * Date:? Generated for Marie vázquez/Jacob/eTransmitting on:?06/18/2024 05:12 PM EDT
[2024-06-18 19:50] LABS: Alanine Aminotransferase 7 U/L (0-40); Albumin Level 3.2 g/dL (3.5-5.0); Anion Gap 14 (12-20); Aspartate Amino Transferase 21 U/L (5-37); Blood Urea Nitrogen 15 mg/dL (9-16); Calcium 9.1 mg/dL (8.4-10.2); Carbon Dioxide 18 mmol/L (22-29); Chloride 110 mmol/L (96-108); Estimated Glomerular Filt Rate 44; Glucose Random 112 mg/dL (60-115); Potassium 4.1 mmol/L (3.3-5.1); Sodium 138 mmol/L (135-145); Total Protein 6.9 g/dL (6.5-8.0)
[2024-06-18 20:01] LABS: Alkaline Phosphatase 97 U/L (39-117)
== END 2024-06-18 14:20 | disposition home or self-care (01) ==
LOC: HO.LAB 14:19
PROVIDERS: PCP Internal Medicine; Visit Provider Internal Medicine
DX: R19.7 Diarrhea, unspecified (principal)
CPT/HCPCS: 80053; 85025

== ENCOUNTER 2024-06-19 11:16 | Outpatient (REF) | payer MEDICARE, OTHER, SELFPAY ==
[2024-06-19 13:04] LABS: Adenovirus F 40/41 Not Detected (Not Detect.); Astrovirus Not Detected (Not Detect.); Campylobacter Not Detected (Not Detect.); Cryptosporidium Not Detected (Not Detect.); Cyclospora cayetanensis Not Detected (Not Detect.); E. coli EAEC Not Detected (Not Detect.); E. coli EPEC Not Detected (Not Detect.); E. coli ETEC Not Detected (Not Detect.); E. coli STEC Not Detected (Not Detect.); Entamoeba histolytica Not Detected (Not Detect.); Giardia lamblia Not Detected (Not Detect.); Norovirus GI/GII Not Detected (Not Detect.); Plesiomonas shigelloides Not Detected (Not Detect.); Rotavirus A Not Detected (Not Detect.); Salmonella Not Detected (Not Detect.); Sapovirus Not Detected (Not Detect.); Shigella sp./EIEC Not Detected (Not Detect.); Vibrio Not Detected (Not Detect.); Vibrio Cholerae Not Detected (Not Detect.); Yersinia enterocolitica Not Detected (Not Detect.)
--- OUTSIDE RECORDS SUMMARY | 2024-06-19 13:37 | XMS_ITS ---
Author Organization Moris uY MD Address [address] [place] [phone] Care Team Providers Care Pipe Organ Installer Name Role Phone Moris Yu Primary Care Provider REASON FOR VISIT UGI orders Encounters Encounter Location Date Provider Diagnosis Moris Yu MD [address] [place] [address] [place] [phone] 04/05/2024 Moris Yu Abnormal computed tomography of abdomen and pelvis R93.5 Assessments Encounter Date Diagnosis (ICD Code) Assessment Notes Treatment Notes Treatment Clinical Notes Section Notes 04/05/2024 Abnormal computed tomography of abdomen and pelvis (ICD-10 - R93.5) Plan Of Treatment Pending Test Test Name Order Date XR GI SERIES 04/05/2024 Next Appt Details Provider Name:Moris delgadillo, 09/06/2024 08:00:00 AM, [address] [place] [address], [address], [phone], Provider Name:Moris delgadillo, 09/13/2024 02:00:00 PM, [address] [place] [address], [address], [phone], Provider Name:Moris delgadillo, 03/06/2025 08:00:00 AM, [address] [place] [address], [address], [phone], Provider Name:Moris delgadillo, 03/13/2025 02:30:00 PM, [address] [place] [address], [address], [phone], Progress Notes * Erasmo QUEVEDOOB: 6 (78 yo M)Acc No.[id number]:04/05/2024 Patient:?Erasmo QUEVEDO :1945???Age:78 Y???Sex:Male Address:[address] [address] Subjective: * Chief Complaints: * ???UGI orders * Medical History:? * Surgical History:? * Hospitalization/Major Diagno stic Procedure:? * Medications:? Objective: * Vitals:? * Physical Examination:? Assessment: * Assessment: 1.?Abnormal computed tomogra phy of abdomen and pelvis - R93.5??? Plan: * Treatment: * Procedure Codes:? * true * Date:? Generated for Marie vázquez/Jacob/eTransmitting on:?06/19/2024 01:37 PM EDT
--- OUTSIDE RECORDS SUMMARY | 2024-06-19 13:37 | XMS_ITS | Continuity of Care Document ---
Author Name [facility] Organization [facility] Care Team Providers Care Dairy Nutrition Consultant Name Role Phone [facility] Unavailable Unavailable Medications Combined list of outpatient medications from Department of Defense and Veterans Affairs facilities.Medications provided include 1) outpatient medications from the last 15 months, and 2) patient-reported medications. Medication Details Route Status Patient Instructions Prescription Expires Prescription Number Last Dispense Date Ordering Provider Order Date Order Qty Source ALLOPURINOL (ALLOPURINO L), 100MG, TABLET, ORAL, [facility], 1000 ea. BOTTLE Active [id number] 4 2023 90 Pharmac y Data Transac tion Service Facilit y AMOX TR-POTASSIU M CLAVULANATE (AMOXICILLI N/POTASSIUM CLAV), 875-125 MG, TABLET, ORAL, [facility], 20 ea. BOTTLE Active [id number] 4 2023 14 Pharmac y Data Transac tion Service Facilit y ATORVASTATI N CALCIUM (atorvastat in calcium), 80 MG, TABLET, ORAL, PRAVIN PHARMACEU, 500 ea. BOTTLE Active [id number] 4 2023 90 Pharmac y Data Transac tion Service Facilit y BISOPROLOL FUMARATE (bisoprolol fumarate), 5 MG, TABLET, ORAL, [employer]., 100 ea. BOTTLE Active [id number] 4 2023 90 Pharmac y Data Transac tion Service Facilit y BISOPROLOL FUMARATE (bisoprolol fumarate), 5 MG, TABLET, ORAL, [employer] 100 ea. BOTTLE Active [id number] 4 2023 90 Pharmac y Data Transac tion Service Facilit y ELIQUIS (APIXABAN), 5 MG, TABLET, ORAL, [facility] , 60 ea. BOTTLE Active [id number] 4 2023 180 Pharmac y Data Transac tion Service Facilit y ELIQUIS (APIXABAN), 5 MG, TABLET, ORAL, [facility] , 60 ea. BOTTLE Active [id number] 4 2023 180 Pharmac y Data Transac tion Service Facilit y ELIQUIS (APIXABAN), 5 MG, TABLET, ORAL, [facility] , 60 ea. BOTTLE Cancele d [id number] : 2023 0 Pharmac y Data Transac tion Service Facilit y ELIQUIS (APIXABAN), 5 MG, TABLET, ORAL, [facility] , 60 ea. BOTTLE Cancele d [id number] : 2023 0 Pharmac y Data Transac tion Service Facilit y ELIQUIS (APIXABAN), 5 MG, TABLET, ORAL, [facility] , 60 ea. BOTTLE Active [id number] 2023 60 Pharmac y Data Transac tion Service Facilit y FINASTERIDE (FINASTERID E), 5 MG, TABLET, ORAL, EXELAN PHARMACE, 90 ea. BOTTLE Active [id number] 4 2023 90 Pharmac y Data Transac tion Service Facilit y FINASTERIDE (FINASTERID E), 5 MG, TABLET, ORAL, EXELAN PHARMACE, 90 ea. BOTTLE Active [id number] 4 2023 90 Pharmac y Data Transac tion Service Facilit y FINASTERIDE (FINASTERID E), 5 MG, TABLET, ORAL, EXELAN PHARMACE, 90 ea. BOTTLE Active [id number] 4 2023 90 Pharmac y Data Transac tion Service Facilit y MULTAQ (DRONEDARON E HYDROCHLORI DE), 400 MG, TABLET, ORAL, SANOFI-AVEN TIS, 60 ea. BOTTLE Active [id number] 2023 180 Pharmac y Data Transac tion Service Facilit y MULTAQ (DRONEDARON E HYDROCHLORI DE), 400 MG, TABLET, ORAL, SANOFI-AVEN TIS, 60 ea. BOTTLE Active [id number] 4 2023 60 Pharmac y Data Transac tion Service Facilit y MULTAQ (DRONEDARON E HYDROCHLORI DE), 400 MG, TABLET, ORAL, SANOFI-AVEN TIS, 60 ea. BOTTLE Active [id number] 2023 60 Pharmac y Data Transac tion Service Facilit y POTASSIUM CITRATE (POTASSIUM CITRATE), 10MEQ, TABLET SA, ORAL, UPSHER PICKERING, 100 ea. BOTTLE Active [id number] 4 2023 200 Pharmac y Data Transac tion Service Facilit y POTASSIUM CITRATE (POTASSIUM CITRATE), 10MEQ, TABLET SA, ORAL, UPSHER PICKERING, 100 ea. BOTTLE Active [id number] 4 2023 200 Pharmac y Data Transac tion Service Facilit y Immunizations Combined list of available immunizations from the Department of Defense and Veterans Affairs facilities. Immunization Series Date Given Administered By Site Reaction Lot Number CVX Code Drug Sonar Watchstander Status Comments Source Tdap 2019 BOGDASARIAN, () Not Given Tdap [facility] Influenza, injectable, MDCK, quadrivalent, preservative 2018 ANNABEL,D () Not Given Influenza , injectabl e, MDCK, quadrival ent, preservat mele [facility] zoster recombinant 2018 ANNABEL,D () Not [...]
--- OUTSIDE RECORDS SUMMARY | 2024-06-19 13:38 | XMS_ITS | Clinical Summary ---
Author Organization [facility] Address [address] [place] [address] Care Team Providers Care Salesperson Art Objects Name Role Phone Moris Yu MD Primary Care Provider [phone] Allergies Active Allergy Reactions Criticality Noted Date [...] mg by nebulization daily. 0 Active Tiotropium Milo Monohydrate (SPIRIVA RESPIMAT) 2.5 MCG/ACT AERS Inhale [...] this topic Medical Devices Implanted Type Area Biztalk Consultant Device Identifier Shelf Expiration Date Model / Serial / Lot Shell Trident Ii F 58mm 5 Screw Hole Cluster Tritanium - [id number] - [id number] Implanted:Qty: 1 on 08/29/2019 by Ron Sanchez MD at [facility] Right: Hip [employer] [id number] 12/24/2023 702-04-58F / / [id number] Screw Trident Ii 30mm 6.5mm Low Profile Hexagonal Bone - 474356 - [id number] Implanted:Qty: 1 on 08/29/2019 by Ron Sanchez MD at [facility] Right: Hip [employer] [id number] 01/08/2024 7577-4542 / / 33TH Insert Trident 10d F 36mm X3 Acetabular Hip - 444663 - [id number] Implanted:Qty: 1 on 08/29/2019 by Ron Sanchez MD at [facility] Right: Hip [employer] [id number] 01/14/2024 623-10-36F / / [id number] Screw Trident Ii 30mm 6.5mm Low Profile Hexagonal Bone - 464769 - [id number] Implanted:Qty: 1 on 08/29/2019 by Ron Sanchez MD at [facility] Right: Hip [employer] [id number] 12/10/2023 9221-5462 / / [id number] Stem Hip Neck Angle 127 Degree Accolade Ii Sz6 - 623232 - [id number] Implanted:Qty: 1 on 08/29/2019 by Ron Sanchez MD at [facility] Right: Hip [employer] [id number] 10/04/2022 9588-2299 / / [id number] Head V40 -5mm 36mm Delta Femoral Hip - 090270 - [id number] Implanted:Qty: 1 on 08/29/2019 by Ron Sanchez MD at [facility] Right: Hip [employer] [id number] 07/31/2024 6570-0-036 / / [id number] Advance Directives For more information, please contact: [phone] Latest Code Status on File Code Status [...] way: discussion with patient . Care Teams Salesperson Art Objects Relationship Specialty Start Date End Date Moris Yu MD [address] [place] [address] PCP - General Internal Medicine 06/26/19
--- OUTSIDE RECORDS SUMMARY | 2024-06-19 13:38 | XMS_ITS | Patient Health Record ---
Author Organization Moris Yu MD Address [address] [place] [id number] Care Team Providers Care Fruit Thinner Name Role Phone Moris Yu Primary Care Provider [phone] Allergies Allergen (clinical drug ingredient) Drug/Non Drug [...] Panel Reviewed date:07/14/2023 08:11:47 PM Interpretation: Performing Lab:[address] [address] Notes/Report: Bilirubin Total 1.0 0.0-1.0 mg/dL Bilirubin Direct 0.4 0.0-0.5 mg/dL Aspartate Amino Transferase 23 5-37 U/L Alanine Aminotransferase 20 0-40 U/L Total Protein 7.5 6.5-8.0 g/dL Albumin Level 3.8 3.5-5.0 g/dL Alkaline Phosphatase 63 39-117 U/L Lipid Panel with Reflex Reviewed date:07/14/2023 08:11:57 PM Interpretation: Performing Lab:[address] [address] Notes/Report: Triglycerides 97 <150 mg/dL Desirable Triglyceride: [...] ff Reviewed date:03/01/2024 11:46:39 AM Interpretation: Performing Lab:[facility], [address] [place] [phone] Notes/Report: White Blood Count 5.6 4.8-10.8 X10*3/uL [...] NRBC Abs Auto 0.000 0.0-0.012 X10*3/uL Comprehensive Ten Sleep. Panel Fa st Reviewed date:03/01/2024 12:19:08 PM Interpretation: Performing Lab:[facility], [address] [place] [phone] Notes/Report: Sodium 141 135-145 mmol/L Potassium 4.4 [...] Panel Reviewed date:03/01/2024 12:18:48 PM Interpretation: Performing Lab:[facility], [address] [place] [phone] Notes/Report: Triglycerides 76 <150 mg/dL Desirable Triglyceride: [...] (Free>4and<10) Reviewed date:03/01/2024 12:19:16 PM Interpretation: Performing Lab:[address] [address] Notes/Report: PSA,Total (Free>4and<10) 0.20 0.00-4.00 ng/mL A [...] Reviewed date:03/08/2024 11:48:58 AM Interpretation:BETSY 03/08/24 Performing Lab:[address] [address] Notes/Report: Urine, Clean Catch Color Urine Yellow Appearance Urine Hazy PH 6.0 5.0-9.0 Glucose Urine UA Negative Negative mg/dL Urine Blood Large (3+) Negative Specific [place] - Urine 1.020 1.005-1.025 Urine Protein Trace Neg-Trace mg/dL Urine Ketones Negative Negative mg/dL Nitrite Urine Positive Negative Leukocyte Esterase Urine Moderate (2+) Negative RBC Urine >20 0-2 /HPF WBC Urine 0-5 0-5 /HPF Squamous Epithelial Cell Urine 0-2 0-2 /HPF Bacteria Urine 1+ None Seen Hyaline Casts Urine 0-2 0-2 /LPF GI Panel (Not yet reviewed b y provider) Interpretation: Performing Lab:[address] [address] Notes/Report: Campylobacter Not Detected Not Detect. Plesiomonas [...] is performed by Multiplexed PCR, utilizing the [place] Anymoba Array. Comprehensive Met. Panel Reviewed date:06/19/2024 12:33:30 PM Interpretation: Performing Lab:[facility], [address] [place] [address] Notes/Report: Sodium 138 135-145 mmol/L Potassium 4.1 [...] 3.5-5.0 g/dL Alkaline Phosphatase 97 39-117 U/L Ebenezer Adler Reviewed date:07/14/2023 08:13:36 PM Interpretation: Performing Lab:[facility], [address] [place] [phone] Notes/Report: Ebenezer Adler See Note Specimen held untested for 24 hours; Call to request Chemistry testing. Glucose, Whole Blood Reviewed date:08/21/2023 06:52:52 AM Interpretation: Performing Lab:[facility], [address] [place] [phone] Notes/Report: Glucose, Whole Blood 117 60-115 mg/dL METER # : [id number] Urine Culture Reviewed date:08/22/2023 12:41:19 PM Interpretation: Performing Lab:[facility], [address] [place] [phone] Notes/Report: Urine Culture No growth. UA ClnCatch+Micro w/rflx Cul t Reviewed date:08/22/2023 04:59:33 PM Interpretation: Performing Lab:[facility], [address] [place] [phone] Notes/Report: Urine, Catheterized Color Urine Dark Yellow Appearance Urine Cloudy PH 6.5 5.0-9.0 Glucose Urine UA Negative Negative mg/dL Urine Blood Large (3+) Negative Specific [place] - Urine 1.025 1.005-1.025 Urine Protein Trace [...] date:08/21/2023 06:49:40 AM Interpretation: Performing Lab: Notes/Report: [address] [address] [address] Scan Report Signed Patient: Erasmo Quevedo MR#: [id number] 70 : 1945 Acct:[id number] Age/Sex: 78 / M ADM Date: 08/20/23 Loc: HO.ED Attending Dr: Ordering Physician: Mercedes Gonzales Date of Service: 08/20/23 Procedure(s): CT soft tissue neck w IV con Accession Number(s): [id number] cc: Moris Yu MD; Mercedes Gonzales EXAMINATION: [...] Klein in OV> 08/20/232051 DD/ 30 TD/TT: Studio Producer: [place] [address] [address] Scan Report Signed Patient: Chris Quevedo MR#: [id number] 70 : 1945 Acct:[id number] Age/Sex: 78 / M ADM Date: 08/20/23 Loc: .ED Attending Dr: Ordering Physician: Mercedes Gonzales Date of Service: 08/20/23 Procedure(s): CT sof t tissue neck w IV con Accession Number(s): [id number] cc: Moris Yu MD; Mercedes Gonzales EXAMINATION: [...] Klein in OV> 08/20/232051 DD/ 30 TD/TT: Studio Producer: CT head/brain wo con Reviewed date:08/21/2023 06:50:20 AM Interpretation: Performing Lab: Notes/Report: [address] [address] [address] Scan Report Signed Patient: Erasmo Quevedo MR#: [id number] 70 : 1945 Acct:[id number] Age/Sex: 78 / M ADM Date: 08/20/23 Loc: HO.ED Attending Dr: Ordering Physician: Mercedes Gonzales Date of Service: 08/20/23 Procedure(s): CT head/brain wo IV con Accession Number(s): [id number] cc: Moris Yu MD; Mercedes Gonzales EXAMINATION: [...] Klein in OV> 08/20/232036 DD/ 29 TD/TT: Studio Producer: [address] [address] [address] Scan Report Signed Patient: Chris Quevedo MR#: [id number] 70 : 1945 Acct:[id number] Age/Sex: 78 / M ADM Date: 08/20/23 Loc: HO.ED Attending Dr: Ordering Physician: Mercedes Gonzales Date of Service: 08/20/23 Procedure(s): CT head/brain wo IV con Accession Number(s): [id number] cc: Moris Yu MD; Mercedes Gonzales EXAMINATION: [...] Klein in OV> 08/20/232036 DD/ 29 TD/TT: Studio Producer: CT facial bones wo con Reviewed date:08/21/2023 06:51:02 AM Interpretation: Performing Lab: Notes/Report: [address] [place] [address] CT Scan Report Signed Patient: Erasmo Quevedo MR#: [id number] 70 : 1945 Acct:[id number] Age/Sex: 78 / M ADM Date: 08/20/23 Loc: HO.ED Attending Dr: Ordering Physician: Mercedes Gonzales Date of Service: 08/20/23 Procedure(s): CT facial bones wo IV con Accession Number(s): [id number] cc: Moris Yu MD; Mercedes Gonzales EXAMINATION: [...] MD in OV> 08/20/232302 DD/ 42 TD/TT: Studio Producer: [address] [address] [address] Scan Report Signed Patient: Chris Quevedo MR#: [id number] 70 : 1945 Acct:[id number] Age/Sex: 78 / M ADM Date: 08/20/23 Loc: HO.ED Attending Dr: Ordering Physician: Mercedes Gonzales Date of Service: 08/20/23 Procedure(s): CT fac ial bones wo IV con Accession Number(s): [id number] cc: Moris Yu MD; Mercedes Gonzales EXAMINATION: [...] MD in OV> 08/20/232302 DD/ 42 TD/TT: Loan Reviewer ist: US abdomen limited Reviewed date:08/21/2023 06:51:42 AM Interpretation: Performing Lab: Notes/Report: [address] [address] Ultrasound Report Signed Patient: Erasmo Quevedo MR#: [id number] 70 : 1945 Acct:[id number] Age/Sex: 78 / M ADM Date: 08/20/23 Loc: HO.ED Attending Dr: Ordering Physician: Mercedes Gonzales Date of Service: 08/20/23 Procedure(s): US abdomen limited Accession Number(s): [id number] cc: Moris Yu MD; Mercedes Gonzales EXAMINATION: [...] Klein in OV> 08/20/232006 DD/ 99 TD/TT: Studio Producer: [address] [address] Ultrasound Report Signed Patient: Chris Quevedo MR#: [id number] 70 : 1945 Acct:[id number] Age/Sex: 78 / M ADM Date: 08/20/23 Loc: HO.ED Attending Dr: Ordering Physician: Mercedes Gonzales Date of Service: 08/20/23 Procedure(s): US abd omen limited Accession Number(s): [id number] cc: Moris Yu MD; Mercedes Gonzales EXAMINATION: [...] Klein in OV> 08/20/232006 DD/ 99 TD/TT: Studio Producer: TINO chest 1V Reviewed date:08/21/2023 06:52:43 AM Interpretation: Performing Lab: Notes/Report: [address] [address] XRay Report Signed Patient: Erasmo Quevedo MR#: [id number] 70 : 1945 Acct:[id number] Age/Sex: 78 / M ADM Date: 08/20/23 Loc: HO.ED Attending Dr: Ordering Physician: Mercedes Gonzales Date of Service: 08/20/23 Procedure(s): XR chest 1V Accession Number(s): [id number] cc: Moris Yu MD; Mercedes Gonzales EXAMINATION: [...] MD in OV> 08/20/231931 DD/ 43 TD/TT: Studio Producer: [place] [address] XRay Report Signed Patient: Chris Quevedo MR#: [id number] 70 : 1945 Acct:[id number] Age/Sex: 78 / M ADM Date: 08/20/23 Loc: .ED Attending Dr: Ordering Physician: Mercedes Gonzales Date of Service: 08/20/23 Procedure(s): XR bunny st 1V Accession Number(s): [id number] cc: Moris Yu MD; Mercedes Gonzales EXAMINATION: [...] 4. Trace bilateral pleural effusions. Dictated By: Sa kevin Vega MD Signed By: <Electronically signed by Samer MD Silvia in OV> 08/20/231931 DD/ 43 TD/TT: Studio Producer: Complete Blood Count no Diff Reviewed date:08/21/2023 05:13:39 PM Interpretation: Performing Lab:[address] [address] Notes/Report: White Blood Count 10.3 4.8-10.8 X10*3/uL [...] ff Reviewed date:08/21/2023 06:48:20 AM Interpretation: Performing Lab:[address] [address] Notes/Report: White Blood Count 10.0 4.8-10.8 X10*3/uL [...] Panel Reviewed date:08/21/2023 06:52:11 AM Interpretation: Performing Lab:[facility], [address] [place] [address] Notes/Report: Sodium 138 135-145 mmol/L Potassium 4.3 [...] Estimated Glomerular Filt Rate 47 NOTE: For -Wallisian individuals, multiply the result by 1.210. Chronic [...] Phosphorus Reviewed date:08/21/2023 06:48:29 AM Interpretation: Performing Lab:[address] [address] Notes/Report: Phosphorus 2.6 2.7-4.5 mg/dL Magnesium Reviewed date:08/21/2023 06:47:56 AM Interpretation: Performing Lab:[address] [address] Notes/Report: Magnesium 1.9 1.6-2.6 mg/dL Venous Blood Gases - POC Reviewed date:08/21/2023 06:47:48 AM Interpretation: Performing Lab:[address] [address] Notes/Report: VBG pH 7.40 7.32-7.43 METER #: [id number] additional_comment: Ganga harper lynne mckinney VBG pCO2 37 METER #: [id number] additional_comment: Ganga harper lynne mckinney VBG pO2 26 METER #: [id number] additional_comment: Ganga harper lynne mckinney G Base Excess -0.9 METER #: [id number] additional_comment: Ganga harper lynne mckinney G HCO3 23 22-26 mmol/L METER #: [id number] additional_comment: Ganga harper lynne mckinney G O2 % Saturation 36.0 METER #: [id number] additional_comment: Ganga harper lynne mckinney CDiff Gene PCR Reviewed date:08/22/2023 12:32:10 PM Interpretation: Performing Lab:[facility], [address] [place] [phone] Notes/Report: CALLED ICU 1245 LEAT CDiff Gene PCR NEGATIVE Negative If C. difficile strongly suspected despite one negative test, a second test may be sent vs. empiric treatment for C. difficile infection. Complete Blood Count no Diff Reviewed date:08/22/2023 12:42:16 PM Interpretation: Performing Lab:[facility], [address] [place] [phone] Notes/Report: White Blood Count 8.4 4.8-10.8 X10*3/uL [...] Panel Reviewed date:08/22/2023 12:40:03 PM Interpretation: Performing Lab:[facility], [address] [place] [address] Notes/Report: Sodium 140 135-145 mmol/L Potassium 3.8 [...] Estimated Glomerular Filt Rate 45 NOTE: For -Wallisian individuals, multiply the result by 1.210. Chronic Kidney Disease: Estimated GFR < 60 mL/min/1.73m2 Severe Kidney Disease: Estimated GFR < 15 mL/min/1.73m2 Glucose Random 92 60-115 mg/dL Calcium 9.2 8.4-10.2 mg/dL Phosphorus Reviewed date:08/22/2023 12:38:52 PM Interpretation: Performing Lab:[address] [address] Notes/Report: Phosphorus 3.0 2.7-4.5 mg/dL Magnesium Reviewed date:08/22/2023 12:32:17 PM Interpretation: Performing Lab:[address] [address] Notes/Report: Magnesium 2.1 1.6-2.6 mg/dL XR chest 1V Reviewed date:08/22/2023 12:39:44 PM Interpretation: Performing Lab: Notes/Report: [address] [address] XRay Report Signed Patient: Erasmo Quevedo MR#: [id number] 70 : 1945 Acct:[id number] Age/Sex: 78 / M ADM Date: 08/21/23 Loc: [facility] 470-[address]: Pat Patricia NP Ordering Physician: Pat Patricia NP Date of Service: 08/22/23 Procedure(s): XR chest 1V Accession Number(s): [id number] cc: Moris Yu MD; Pat Patricia NP [...] in OV> 08/22/23 1152 DD/ 1030 TD/TT: Studio Producer: [address] [address] XRay Report Signed Patient: Chris Quevedo MR#: [id number] 70 : 1945 Acct:[id number] Age/Sex: 78 / M ADM Date: 08/21/23 Loc: [facility] 470-[address]: Pat Patricia NP Ordering Physician: Pat Patricia NP Date of Service: 08/22/23 Procedure(s): XR bunny st 1V Accession Number(s): [id number] cc: Moris Yu MD; Pat Patricia NP [...] in OV> 08/22/23 1152 DD/ 1030 TD/TT: Studio Producer: Complete Blood Count no Diff Reviewed date:08/23/2023 08:05:06 PM Interpretation: Performing Lab:[facility], [address] [place] [phone] Notes/Report: White Blood Count 7.5 4.8-10.8 X10*3/uL [...] Panel Reviewed date:08/23/2023 08:05:30 PM Interpretation: Performing Lab:[facility], [address] [place] [phone] Notes/Report: Sodium 142 135-145 mmol/L Potassium 3.5 [...] Estimated Glomerular Filt Rate 43 NOTE: For -Wallisian individuals, multiply the result by 1.210. Chronic Kidney Disease: Estimated GFR < 60 mL/min/1.73m2 Severe Kidney Disease: Estimated GFR < 15 mL/min/1.73m2 Glucose Random 97 60-115 mg/dL Calcium 9.2 8.4-10.2 mg/dL XR chest 1V Reviewed date:08/26/2023 06:24:12 PM Interpretation: Performing Lab: Notes/Report: [address] [address] XRay Report Signed Patient: Erasmo Quevedo MR#: [id number] 70 : 1945 Acct:[id number] Age/Sex: 78 / M ADM Date: 08/21/23 Loc: [facility] [address]: Tamera BARRON Ordering Physician: Tamera Watts Date of Service: 08/25/23 Procedure(s): XR chest 1V Accession Number(s): [id number] cc: Tamera Watts; Moris Yu MD EXAMINATION: [...] in OV> 08/25/23 1901 DD/ 0600 TD/TT: Studio Producer: [address] [address] XRay Report Signed Patient: Chris Quevedo MR#: [id number] 70 : 1945 Acct:[id number] Age/Sex: 78 / M ADM Date: 08/21/23 Loc: [facility] 468-[address]: Pavithra BARRON Ordering Physician: Tamera Watts Date of Service: 06/28/24 Procedure(s): XR bunny st 1V Accession Number(s): [id number] cc: Shira Watts; Moris Yu MD EXAMINATION: [...] in OV> 08/25/23 1901 DD/ 0600 TD/TT: Loan Reviewer ist: BOOM Lactic Acid Reviewed date:09/04/2023 04:43:19 PM Interpretation: Performing Lab:[facility], [address] [place] [phone] Notes/Report: Lactic Acid 1.5 0.5-2.0 mmol/L Urine Culture Reviewed date:09/05/2023 01:04:25 PM Interpretation: Performing Lab:[facility], [address] [place] [phone] Notes/Report: Urine Culture No growth. Blood Culture (First) Reviewed date:09/10/2023 01:28:56 PM Interpretation: Performing Lab:[facility], [address] [place] [phone] Notes/Report: Blood Culture (First) No growth after 5 days. Blood Culture (Second) Reviewed date:09/10/2023 01:28:42 PM Interpretation: Performing Lab:[facility], [address] [place] [phone] Notes/Report: Blood Culture (Second) No growth after [address] chest wo con Reviewed date:09/04/2023 04:44:13 PM Interpretation: Performing Lab: Notes/Report: [address] [address] [address] Scan Report Signed Patient: Erasmo Quevedo MR#: [id number] 70 : 1945 Acct:[id number] Age/Sex: 78 / M ADM Date: 09/04/23 [facility]: Pat Patricia NP Ordering Physician: Keesha Stein Date of Service: 09/04/23 Procedure(s): CT chest wo IV con Accession Number(s): [id number] cc: Moris Yu MD; Keesha Stein EXAMINATION: [...] in OV> 09/04/23 1621 DD/ 1515 TD/TT: Studio Producer: [address] [address] [address] Scan Report Signed Patient: Chris Quevedo MR#: [id number] 70 : 1945 Acct:[id number] Age/Sex: 78 / M ADM Date: 09/04/23 Loc: [facility]-[address]: Pat Patricia NP Ordering Physician: Keesha Stein Date of Service: 09/04/23 Procedure(s): CT bunny st wo IV con Accession Number(s): [id number] cc: Moris Yu MD; Keesha Stein EXAMINATION: [...] lumba r spine with dextroscoliosis. Dictated By: aGmal Benedict MD Signed By: <Electronically signed by Yasmani Benedict MD in OV> 09/04/23 1621 DD/ 1515 TD/TT: Loan Reviewer ist: TANIKA CT abdomen pelvis wo con Reviewed date:09/04/2023 04:44:58 PM Interpretation: Performing Lab: Notes/Report: [place] [address] CT Scan Report Signed Patient: Erasmo Quevedo MR#: [id number] 70 : 1945 Acct:[id number] Age/Sex: 78 / M ADM Date: 09/04/23 Loc: [place] [address]: Pat Patricia [employer] Ordering Physician: Keesha Stein Date of Service: 09/04/23 Procedure(s): CT abdomen pelvis wo IV con Accession Number(s): [id number] cc: Moris Yu MD; Keesha Stein EXAMINATION: [...] in OV> 09/04/23 1621 DD/ 1515 TD/TT: Studio Producer: [place] [address] CT Scan Report Signed Patient: Chris Quevedo MR#: [id number] 70 : 1945 Acct:[id number] Age/Sex: 78 / M ADM Date: 09/04/23 Loc: [facility]: Pat Patricia NP Ordering Physician: Keesha Stein Date of Service: 09/04/23 Procedure(s): CT abd omen pelvis wo IV con Accession Number(s): [id number] cc: Moris Yu MD; Keesha Stein EXAMINATION: [...] in OV> 09/04/23 1621 DD/ 1515 TD/TT: Loan Reviewer ist: TANIKA XR chest 1V Reviewed date:09/04/2023 04:46:00 PM Interpretation: Performing Lab: Notes/Report: [address] [address] XRay Report Signed Patient: Erasmo Quevedo MR#: [id number] 70 : 1945 Acct:[id number] Age/Sex: 78 / M ADM Date: 09/04/23 Loc: .ED Attending Dr: Ordering Physician: Keesha Stein Date of Service: 09/04/23 Procedure(s): XR chest 1V Accession Number(s): [id number] cc: Moris Yu MD; Keesha Stein EXAMINATION: [...] in OV> 09/04/23 1444 DD/ 1300 TD/TT: Studio Producer: [address] [address] XRay Report Signed Patient: Chris Quevedo MR#: [id number] 70 : 1945 Acct:[id number] Age/Sex: 78 / M ADM Date: 09/04/23 Loc: .ED Attending Dr: Ordering Physician: Keesha Stein Date of Service: 09/04/23 Procedure(s): XR bunny st 1V Accession Number(s): [id number] cc: Moris Yu MD; Keesha Stein EXAMINATION: [...] in OV> 09/04/23 1444 DD/ 1300 TD/TT: Studio Producer: Complete Blood Count Auto Britney ff Reviewed date:09/05/2023 01:08:06 PM Interpretation: Performing Lab:[facility], [address] [place] [phone] Notes/Report: White Blood Count 7.4 4.8-10.8 X10*3/uL [...] Panel Reviewed date:09/05/2023 01:02:01 PM Interpretation: Performing Lab:[facility], [address] [place] [phone] Notes/Report: Sodium 139 135-145 mmol/L Potassium 3.9 [...] Estimated Glomerular Filt Rate 35 NOTE: For -Wallisian individuals, multiply the result by 1.210. Chronic Kidney Disease: Estimated GFR < 60 mL/min/1.73m2 Severe Kidney Disease: Estimated GFR < 15 mL/min/1.73m2 Glucose Random 88 60-115 mg/dL Calcium 9.5 8.4-10.2 mg/dL Magnesium Reviewed date:09/05/2023 09:55:27 AM Interpretation: Performing Lab:[facility], [address] [place] [phone] Notes/Report: Magnesium 2.2 1.6-2.6 mg/dL FL guidance in [place] Reviewed date:09/10/2023 01:29:32 PM Interpretation: Performing Lab: Notes/Report: [address] [address] Fluoroscopy Report Signed Patient: Erasmo Quevedo MR#: [id number] 70 : 1945 Acct:[id number] Age/Sex: 78 / M ADM Date: 09/04/23 Loc: HO.S3 363-[address]: Pat Patricia NP Ordering Physician: Kuldip Iabrra MD Date of Service: 09/05/23 Procedure(s): FL guidance in OR Accession Number(s): [id number] cc: Kuldip Ibarra MD; Moris Yu MD [...] in OV> 09/09/23 1538 DD/ 1845 TD/TT: Studio Producer: [place] [address] Fluoroscopy Report Signed Patient: Chris Quevedo MR#: [id number] 70 : 1945 Acct:[id number] Age/Sex: 78 / M ADM Date: 09/04/23 Loc: HO.S3 363-[address]: Pat Patricia NP Ordering Physician: Kuldip Ibarra MD Date of Service: 09/05/23 Procedure(s): FL guidance in OR Accession Number(s): [id number] cc: Leonardo Ibarra MD; Moris Yu MD [...] in OV> 09/09/23 1538 DD/ 1845 TD/TT: Loan Reviewer ist: PN Creatinine Reviewed date:09/06/2023 04:10:25 PM Interpretation: Performing Lab:[address] [address] Notes/Report: Creatinine 1.63 0.5-1.4 mg/dL Creatinine Clr Calc Pharmacy 43.4 eGFR (calculated from the MDRD study equation) and eCrCl (calculated from the Cockcroft-Gault equation) are based on different parameters and may not yield comparable results. If eCrCl result is absurd, please check patient's height/weight. Estimated Glomerular Filt Rate 41 NOTE: For -Wallisian individuals, multiply the result by 1.210. Chronic Kidney Disease: Estimated GFR < 60 mL/min/1.73m2 Severe Kidney Disease: Estimated GFR < 15 mL/min/1.73m2 Hold Lav - Possible Hematolo gy Reviewed date:09/07/2023 12:36:28 PM Interpretation: Performing Lab:[address] [address] Notes/Report: Hold Lav - Possible Hematology SEE NOTE Specimen will be held untested for 8 hours. Call Hematology if testing is desired. Basic Metabolic Panel Reviewed date:09/07/2023 12:37:28 PM Interpretation: Performing Lab:[address] [address] Notes/Report: Sodium 138 135-145 mmol/L Potassium 3.8 [...] Estimated Glomerular Filt Rate 58 NOTE: For -Wallisian individuals, multiply the result by 1.210. Chronic Kidney Disease: Estimated GFR < 60 mL/min/1.73m2 Severe Kidney Disease: Estimated GFR < 15 mL/min/1.73m2 Glucose Random 98 60-115 mg/dL Calcium 8.7 8.4-10.2 mg/dL Lactic Acid Reviewed date:09/15/2023 10:08:39 AM Interpretation: Performing Lab:[facility], [address] [place] [phone] Notes/Report: Lactic Acid 1.3 0.5-2.0 mmol/L Blood Culture (First) Reviewed date:09/20/2023 08:17:24 PM Interpretation: Performing Lab:[facility], [address] [place] [phone] Notes/Report: Blood Culture (First) No growth after 5 days. Blood Culture (Second) Reviewed date:09/20/2023 08:16:12 PM Interpretation: Performing Lab:[facility], [address] [place] [phone] Notes/Report: Blood Culture (Second) No growth after 5 days. GI Panel Reviewed date:09/16/2023 04:20:02 PM Interpretation: Performing Lab:[facility], [address] [place] [phone] Notes/Report: Campylobacter Not Detected Not Detect. Plesiomonas [...] is performed by Multiplexed PCR, utilizing the [place] Anymoba Array. CT abdomen pelvis wo con Reviewed date:09/15/2023 10:09:52 AM Interpretation: Performing Lab: Notes/Report: [place] [address] CT Scan Report Signed Patient: Erasmo Quevedo MR#: [id number] 70 : 1945 Acct:[id number] Age/Sex: 78 / M ADM Date: 09/14/23 Loc: .ED Attending Dr: Ordering Physician: Beverly Sanchez MD Date of Service: 09/14/23 Procedure(s): CT abdomen pelvis wo IV con Accession Number(s): [id number] cc: Moris Yu MD; Beverly Sanchez MD [...] MD in OV> 09/14/232200 DD/ 54 TD/TT: Studio Producer: [address] [place] [address] CT Scan Report Signed Patient: Chris Quevedo MR#: [id number] 70 : 1945 Acct:[id number] Age/Sex: 78 / M ADM Date: 09/14/23 Loc: HO.ED Attending Dr: Ordering Physician: Beverly Sanchez MD Date of Service: 09/14/23 Procedure(s): CT abd omen pelvis wo IV con Accession Number(s): [id number] cc: Moris Yu MD; Beverly Sanchez MD [...] MD in OV> 09/14/232200 DD/ 54 TD/TT: Loan Reviewer ist: SS Complete Blood Count Auto Di ff Reviewed date:09/16/2023 04:25:25 PM Interpretation: Performing Lab:[facility], [address] [place] [id number] Notes/Report: White Blood Count 9.5 4.8-10.8 X10*3/uL [...] Panel Reviewed date:09/16/2023 04:19:35 PM Interpretation: Performing Lab:[address] [phone] Notes/Report: Sodium 137 135-145 mmol/L Potassium 5.1 [...] Estimated Glomerular Filt Rate 52 NOTE: For -[place]is[place] individuals, multiply the result by 1.210. Chronic Kidney Disease: Estimated GFR < 60 mL/min/1.73m2 Severe Kidney Disease: Estimated GFR < 15 mL/min/1.73m2 Glucose Random 87 60-115 mg/dL Calcium 9.0 8.4-10.2 mg/dL Hold Lav - Possible Hematolo gy Reviewed date:09/16/2023 04:13:06 PM Interpretation: Performing Lab:[address] [place] [address] Notes/Report: Hold Lav - Possible Hematology SEE NOTE Specimen will be held untested for 8 hours. Call Hematology if testing is desired. Liver Panel Reviewed date:09/16/2023 04:11:11 PM Interpretation: Performing Lab:[address] [address] Notes/Report: Bilirubin Total 0.6 0.0-1.0 mg/dL Bilirubin Direct 0.2 0.0-0.5 mg/dL Slight Hem olysis Aspartate Amino Transferase 29 5-37 U/L Slight Hemolysis Alanine Aminotransferase 23 0-40 U/L Total Protein 6.6 6.5-8.0 g/dL Albumin Level 3.1 3.5-5.0 g/dL Alkaline Phosphatase 76 39-117 U/L Basic Metabolic Panel Fastin g Reviewed date:09/16/2023 04:12:46 PM Interpretation: Performing Lab:[address] [address] Notes/Report: Sodium 141 135-145 mmol/L Potassium 4.0 [...] Estimated Glomerular Filt Rate 56 NOTE: For -Wallisian individuals, multiply the result by 1.210. Chronic Kidney Disease: Estimated GFR < 60 mL/min/1.73m2 Severe Kidney Disease: Estimated GFR < 15 mL/min/1.73m2 Glucose Fasting 76 60-99 mg/dL Calcium 9.1 8.4-10.2 mg/dL Complete Blood Count no Diff Reviewed date:09/18/2023 01:19:22 PM Interpretation: Performing Lab:[address] [address] Notes/Report: White Blood Count 7.8 4.8-10.8 X10*3/uL [...] g Reviewed date:09/18/2023 12:40:26 PM Interpretation: Performing Lab:[address] [address] Notes/Report: Sodium 139 135-145 mmol/L Potassium 3.7 [...] Estimated Glomerular Filt Rate 55 NOTE: For -Wallisian individuals, multiply the result by 1.210. Chronic Kidney Disease: Estimated GFR < 60 mL/min/1.73m2 Severe Kidney Disease: Estimated GFR < 15 mL/min/1.73m2 Glucose Fasting 86 60-99 mg/dL Calcium 8.5 8.4-10.2 mg/dL XR KUB Reviewed date:09/19/2023 12:17:19 PM Interpretation: Performing Lab: Notes/Report: [address] [address] XRay Report Signed Patient: Erasmo Quevedo MR#: [id number] 70 : 1945 Acct:[id number] Age/Sex: 78 / M ADM Date: 09/15/23 Loc: .S3 370-[address]: Jefry Álvarez MD Ordering Physician: Jefry Álvarez MD Date of Service: 09/18/23 Procedure(s): XR KUB Accession Number(s): [id number] cc: Moris Yu MD; Jefry Álvarez MD [...] in OV> 09/19/23 1012 DD/ 1619 TD/TT: Studio Producer: [address] [address] XRay Report Signed Patient: Chris Quevedo MR#: [id number] 70 : 1945 Acct:[id number] Age/Sex: 78 / M ADM Date: 09/15/23 Loc: .S3 370-[address]: Mat Álvarez MD Ordering Physician: Jefry Álvarez MD Date of Service: 09/18/23 Procedure(s): XR KUB Accession Number(s): [id number] cc: Moris Yu MD; Jefry Álvarez MD [...] in OV> 09/19/23 1012 DD/ 1619 TD/TT: Studio Producer: SLOANE Complete Blood Count Auto Di ff Reviewed date:10/26/2023 09:59:23 AM Interpretation: Performing Lab:[facility], [address] [place] [address] Notes/Report: White Blood Count 5.3 4.8-10.8 X10*3/uL [...] te Reviewed date:10/25/2023 02:39:29 PM Interpretation: Performing Lab:[facility], [address] [place] [phone] Notes/Report: Erythrocyte Sedimentation Rate 23 0-15 MM/HR Patients with polycythemia and many hemoglobin abnormalities may have depressed sed rates whereas patients with anemia may have elevated sed rates. Liver Panel Reviewed date:10/25/2023 02:40:10 PM Interpretation: Performing Lab:[facility], [address] [place] [address] Notes/Report: Bilirubin Total 0.9 0.0-1.0 mg/dL Bilirubin Direct 0.4 0.0-0.5 mg/dL Aspartate Amino Transferase 18 5-37 U/L Alanine Aminotransferase 17 0-40 U/L Total Protein 6.8 6.5-8.0 g/dL Albumin Level 3.4 3.5-5.0 g/dL Alkaline Phosphatase 75 39-117 U/L Basic Metabolic Panel Reviewed date:10/26/2023 09:58:59 AM Interpretation: Performing Lab:[facility], [address] [place] [phone] Notes/Report: Sodium 141 135-145 mmol/L Potassium 4.3 3.3-5.1 mmol/L Chloride 110 96-108 mmol/L Carbon Dioxide 25 22-29 mmol/L Anion Gap 10 12-20 Blood Urea Nitrogen 20 9-16 mg/dL Creatinine 1.99 0.5-1.4 mg/dL Estimated Glomerular Filt Rate 33 NOTE: For -Wallisian individuals, multiply the result by 1.210. Chronic Kidney Disease: Estimated GFR < 60 mL/min/1.73m2 Severe Kidney Disease: Estimated GFR < 15 mL/min/1.73m2 Glucose Random 107 60-115 mg/dL Calcium 9.6 8.4-10.2 mg/dL FL guidance in OR Reviewed date:03/05/2024 12:54:47 PM Interpretation: Performing Lab: Notes/Report: [address] [place] [address] Fluoroscopy Report Signed Patient: Erasmo Quevedo MR#: [id number] 70 : 1945 Acct:[id number] Age/Sex: 78 / M ADM Date: 10/31/23 Loc: HO.SSS Attending Dr: Kuldip Ibarra MD Ordering Physician: Kuldip Ibarra MD Date of Service: 10/31/23 Procedure(s): FL guidance in OR Accession Number(s): [id number] cc: Kuldip Ibarra MD; Moris Yu MD [...] 03/05/24 0852 DD/ 0758 TD/TT: 10/31/23 0831 Studio Producer: TANG [address] [address] Fluoroscopy Report Signed Patient: Chris Quevedo MR#: [id number] 70 : 1945 Acct:[id number] Age/Sex: 78 / M ADM Date: 10/31/23 Loc: HO.SSS Attending Dr: Kuldip Ibarra MD Ordering Physician: Kuldip Ibarra MD Date of Service: 10/31/23 Procedure(s): FL guidance in OR Accession Number(s): [id number] cc: Leonardo Ibarra MD; Moris Yu MD [...] by: Jeni Hart MD 03/05/2024 08:52 AM [facility] Dictated By: Jeni Hart MD Signed By: <Electronically signed by Jeni Hart MD in OV> 03/05/24 0852 DD/ 0758 TD/TT: 10/31/23 0831 Studio Producer: PN Urine Culture Reviewed date:11/19/2023 04:14:44 PM Interpretation: Performing Lab:[address] [address] Notes/Report: Urine Culture Report Result Urine Culture < 10,000 cfu/ml Complete Blood Count Auto Di ff Reviewed date:01/03/2024 12:30:08 PM Interpretation: Performing Lab:[facility], [address] [place] [phone] Notes/Report: White Blood Count 5.7 4.8-10.8 X10*3/uL [...] Panel Reviewed date:01/03/2024 12:18:50 PM Interpretation: Performing Lab:[facility], [address] [place] [phone] Notes/Report: Sodium 139 135-145 mmol/L Potassium 4.4 3.3-5.1 mmol/L Chloride 110 96-108 mmol/L Carbon Dioxide 23 22-29 mmol/L Anion Gap 10 12-20 Blood Urea Nitrogen 17 9-16 mg/dL Creatinine 1.74 0.5-1.4 mg/dL Estimated Glomerular Filt Rate 38 NOTE: For -Wallisian individuals, multiply the result by 1.210. Chronic Kidney Disease: Estimated GFR < 60 mL/min/1.73m2 Severe Kidney Disease: Estimated GFR < 15 mL/min/1.73m2 Glucose Random 97 60-115 mg/dL Calcium 9.7 8.4-10.2 mg/dL XR KUB Reviewed date:02/18/2024 03:50:04 PM Interpretation: Performing Lab: Notes/Report: [address] [address] XRay Report Signed Patient: Erasmo Quevedo MR#: [id number] 70 : 1945 Acct:[id number] Age/Sex: 78 / M ADM Date: 02/15/24 Loc: BRENDA Attending Dr: Kuldip Ibarra MD Ordering Physician: Kuldip Ibarra MD Date of Service: 02/15/24 Procedure(s): XR KUB Accession Number(s): [id number] cc: Kuldip Ibarra MD; Moris Yu MD [...] by: Newton Elkins MD 02/17/2024 08:39 PM [facility] Dictated By: Newton Elkins MD Signed By: <Electronically signed by Newton Elkins MD in OV> 02/17/242038 DD/ 1150 TD/TT: 02/15/24 1205 Studio Producer: [place] [address] XRay Report Signed Patient: Chris Quevedo MR#: [id number] 70 : 1945 Acct:[id number] Age/Sex: 78 / M ADM Date: 02/15/24 Loc: BRENDA Attending Dr: Kuldip Ibarra MD Ordering Physician: Kuldip Ibarra MD Date of Service: 02/15/24 Procedure(s): XR KUB Accession Number(s): [id number] cc: Leonardo Ibarra MD; Moris uY MD EXAMINATION: XR ABDOMEN KUB CLINICAL INDICATION: [...] by: Newton Elkins MD 02/17/2024 08:39 PM [facility] Dictated By: Newton Elkins MD Signed By: <Electronically signed by Newton Elkins MD in OV> 02/17/242038 DD/ 1150 TD/TT: 02/15/24 1205 Studio Producer: Urine Culture Reviewed date:03/03/2024 06:22:09 PM Interpretation: Performing Lab:[facility], [address] [place] [phone] Notes/Report: Urine Culture No growth. CT abdomen pelvis wo con Reviewed date:04/05/2024 10:26:12 AM Interpretation: Performing Lab: Notes/Report: [address] [address] [address] Scan Report Signed Patient: Erasmo Quevedo MR#: [id number] 70 : 1945 Acct:[id number] Age/Sex: 78 / M ADM Date: 04/03/24 Loc: HO.CT Attending Dr: Kuldip Ibarra MD Ordering Physician: Kuldip Ibarra MD Date of Service: 04/03/24 Procedure(s): CT abdomen pelvis wo IV con Accession Number(s): [id number] cc: Kuldip Ibarra MD; Moris Yu MD Report Number: [id number]: Total DLP = 625.00 mGy-cm CLINICAL HISTORY: [...] 04/04/24 1247 DD/ 1246 TD/TT: 04/04/24 1246 Studio Producer: [address] [address] [address] Scan Report Signed Patient: Chris Quevedo MR#: [id number] 70 : 1945 Acct:[id number] Age/Sex: 78 / M ADM Date: 04/03/24 Loc: HO.CT Attending Dr: Kuldip Ibarra MD Ordering Physician: Kuldip Ibarra MD Date of Service: 04/03/24 Procedure(s): CT abd omen pelvis wo IV con Accession Number(s): [id number] cc: Leonardo Ibarra MD; Moris Yu MD Report Number: [id number]: Total DLP = 625.00 mGy-cm CLINICAL HISTORY: [...] 04/04/24 1247 DD/ 1246 TD/TT: 04/04/24 1246 Studio Producer: Kidney Stone Reviewed date:05/14/2024 10:06:37 AM Interpretation: Performing Lab:[facility], [address] [place] [address] Notes/Report: R Ureter S1246 Component 1 SEE NOTE Calcium Oxalate Dihydrate (Weddellite) 20% Calcium Oxalate Monohydrate (Whewellite) 80% Stone Weight 0.003 This test was developed and its analytical performance characteristics have been determined by [employer] It has not been cleared or approved by the FDA. This assay has been validated pursuant to the CLIA regulations and is used for clinical purposes. THIS TEST WAS PERFORMED AT: [employer] [address] [place] [address] SIDDHARTH ZULUAGA MD,PHD,JAN [facility] KIDNEY STONE Pathology Reviewed date:05/08/2024 07:02:03 PM Interpretation: Performing Lab:[facility], [address] [place] [phone] Notes/Report: ---- Name: Erasmo Quevedo Age/Sex: 79/M : 1945 Unit#: [id number] Attend Dr: Kuldip Ibarra MD Re05/07/24 Status : [facility] Location: [facility] Disch: ---- SPEC : [id number] RECD : 05/07/24-1457 STATUS: DI MORRISON NUM: [id number] JAQUELINE: 05/07/24-[address] [facility] [address]: Kuldip Ibarra MD ENTERED: 05/07/24 03 SP TYPE: Surgical OTHR DR: Moris Yu MD ORDERED: GO Diagnosis Right ureteral stone (removal): Calculus identified; macroscopic description only. Comment: The entire specimen was sent for chemical analysis. Please see the laboratory portion of the EMR f or the outside report from [employer] Clinical History Calculus of ureter Material Received Right ureteral stone Gross Description Received fresh with gauze labeled right ureteral stone? is a 0.2 cm hard, white-odom calculus, forwarded to [employer] for chemical analysis. No soft tissue is identified. Gross description only. CEDS Copies To: Kuldip Ibarra MD [facility] [address] [place] [address] [place] [address] [email or web address] Moris Yu MD [facility] [address] [place] [address] [address] [place], [place] [id number] ---- Signed (signature on file) Judit [place] 05/08/24 0856 ---- END OF REPORT Urine Culture Reviewed date:05/13/2024 12:07:29 PM Interpretation: Performing Lab:[facility], [address] [place] [phone] Notes/Report: Urine Culture Report Result Urine Culture < 10,000 cfu/ml O:CANALB Christa albicans Urine Culture Quant Urine Culture < 10,000 cfu/mL FL guidance in OR Reviewed date:05/08/2024 07:02:20 PM Interpretation: Performing Lab: Notes/Report: [address] [address] Fluoroscopy Report Signed Patient: Erasmo Quevedo MR#: [id number] 70 : 1945 Acct:[id number] Age/Sex: 79 / M ADM Date: 05/07/24 Loc: .SSS Attending Dr: Kuldip Ibarra MD Ordering Physician: Kuldip Ibarra MD Date of Service: 05/07/24 Procedure(s): FL guidance in OR Accession Number(s): [id number] cc: Kuldip Ibarra MD; Moris Yu MD [...] 05/07/2024 02:42 PM EDT RP Dictated By: Jsoe Cruz Doss MD Signed By: <Electronically signed by Jose Cruz Doss MD in OV> 05/07/24 1442 DD/ 1230 TD/TT: 05/07/24 1350 Studio Producer: [place] [address] Fluoroscopy Report Signed Patient: Chris Quevedo MR#: [id number] 70 : 1945 Acct:[id number] Age/Sex: 79 / M ADM Date: 05/07/24 Loc: .[facility] Attending Dr: Kuldip Ibarra MD Ordering Physician: Kuldip Ibarra MD Date of Service: 05/07/24 Procedure(s): FL guidance in OR Accession Number(s): [id number] cc: Leonardo Ibarra MD; Moris Yu MD [...] 05/07/24 1442 DD/ 1230 TD/TT: 05/07/24 1350 Studio Producer: Basic Metabolic Panel Reviewed date:06/02/2024 10:00:22 AM Interpretation: Performing Lab:[facility], [address] [place] [phone] Notes/Report: Sodium 140 135-145 mmol/L Potassium 4.0 [...] date:06/03/2024 12:20:03 PM Interpretation: Performing Lab: Notes/Report: [address] [address] XRay Report Signed Patient: Erasmo Quevedo MR#: [id number] 70 : 1945 Acct:[id number] Age/Sex: 79 / M ADM Date: 05/31/24 Loc: BRENDA Attending Dr: Mau Hodge MD Ordering Physician: Kuldip Ibarra MD Date of Service: 05/31/24 Procedure(s): XR KUB Accession Number(s): [id number] cc: Kuldip Ibarra MD; Moris Yu MD [...] 06/03/24 1007 DD/ 1217 TD/TT: 05/31/24 1230 Studio Producer: [address] [address] XRay Report Signed Patient: Chris Quevedo MR#: [id number] 70 : 1945 Acct:[id number] Age/Sex: 79 / M ADM Date: 05/31/24 Loc: HO.XRAY Attending Dr: Mau Hodge MD Ordering Physician: Kuldip Ibarra MD Date of Service: 05/31/24 Procedure(s): XR KUB Accession Number(s): [id number] cc: Leonardo Ibarra MD; Moris Yu MD [...] 06/03/24 1007 DD/ 1217 TD/TT: 05/31/24 1230 Studio Producer: AL upper GI w air Reviewed date:06/03/2024 12:49:02 PM Interpretation: Performing Lab: Notes/Report: [address] [address] Fluoroscopy Report Signed Patient: Erasmo Quevedo MR#: [id number] 70 : 1945 Acct:[id number] Age/Sex: 79 / M ADM Date: 06/03/24 Loc: HO.XRAY Attending Dr: Moris Yu MD Ordering Physician: Moris Yu MD Date of Service: 06/03/24 Procedure(s): FL upper GI w air Accession Number(s): [id number] cc: Moris Yu MD EXAMINATION: XR FLUOROSCOPY [...] Munoz MD in OV> 06/03/24 1133 DD/ TD/TT: 06/03/24 08 Studio Producer: ENRIQUE [address] [address] Fluoroscopy Report Signed Patient: Chris Quevedo MR#: [id number] 70 : 1945 Acct:[id number] Age/Sex: 79 / M ADM Date: 06/03/24 Loc: HO.XRAY Attending Dr: Moris Yu MD Ordering Physician: Moris Yu MD Date of Service: 06/03/24 Procedure(s): FL upp er GI w air Accession Number(s): [id number] cc: Moris Yu MD EXAMINATION: XR FLUOROSCOPY [...] 06/03/24 1133 DD/ 0745 TD/TT: 06/03/24 0820 Studio Producer: ENRIQUE Complete Blood Count Auto Di ff Reviewed date:06/18/2024 06:23:55 PM Interpretation: Performing Lab:[facility], [address] [place] [phone] Notes/Report: White Blood Count 5.6 4.8-10.8 X10*3/uL [...] puffs as needed Inhalation every 4 hrs Not-Taktello g Atorvastatin Calcium 80 MG take 1 tablet [...] Flu Vaccine Unknown 12/07/2011 Administered given at [facility] Flu Vaccine Unknown 11/18/2012 Administered received at [facility] PPSV23 (Pnemovax) IM Intramuscular 09/19/2013 Administered Flu Vaccine Unknown 12/03/2013 Administered was given b [facility] Flu Vaccine Unknown 11/27/2014 Administered Given by wi fe TDaP IM Intramuscular 02/10/2015 Administered Fluarix Quadrivalent Unknown 12/08/2015 Administered Gi micheal by through a Flu Clinic Fluarix Quadrivalent IM Intramuscular 11/27/2017 Administe red Shingrix Unknown 01/11/2018 Administered [facility] Shingrix Unknown 01/11/2018 Administered [facility] Shingrix Unknown 05/17/2018 Administered [facility] Fluarix Quadrivalent Unknown 12/05/2018 Administered Wo PPSV23 (Pnemovax) IM Intramuscular 12/18/2018 Administered Influenza [...] W/U Status Risk Notes Problem Erectile dysfunction (063644688) Erectile Dysfunction (607.84) Active confirmed Problem 054739077 Thrombocytopenia (D69.6) Active confirmed Problem 675825978 Paroxysmal atria l fibrillation (I48.0) Active confirmed Problem 104135822 Tubular adenoma of colon (D12.6) Active confirmed Problem 117364585 History of coron shaquille artery disease (Z86.79) Active confirmed Problem 41134698 Sarcoidosis (D86.9) Active confirmed Problem 18197195 Dysthymia (F34.1) Active confirmed Problem 772113238 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) Active confirmed Problem 874881306 Pure hypercholesterolemia (E78.00) Active confirmed Problem Hypercholesterolemia (21912528) Hypercholesterolemia (E78.00) Active confirmed Problem 919874455 BMI 32.0-32.9,ad ult (Z68.32) Active confirmed Problem 101938864 Moderate asthma without complication, unspecified whether persistent (J45.909) Active confirmed Problem 95055799 Chronic congesti ve heart failure, unspecified heart failure type (I50.9) Active confirmed Problem 293694439 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) Active confirmed Problem 898759829 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 confirmed Problem Hypersomnia (98737845) Hypersomnolence (G47.10) Active confirmed Problem 51949924 Other ventricula r tachycardia (I47.29) Active confirmed Problem 187548626 Acute constipati on (K59.00) Active confirmed Vital [...] Moris Yu MD [address] [place] [address] [id number] 07/14/2023 Moris Yu Pure hypercholestero lemia E78.00 Moris Yu MD [address] [place] [address] [id number] 09/11/2023 Moris Yu Paroxysmal atrial fibrillation I48.0 and Gross hematuria R31.0 Moris Yu MD [address] [place] [id number] 03/01/2024 Moris Yu Pure hypercholestero lemia E78.00 ; Thrombocytopenia D69.6 and Chronic congestive heart failure, unspecified heart failure type I50.9 Moris Yu MD [address] [place] [address] [id number] 07/20/2023 Moris Yu Chronic congestive h eart failure, unspecified heart failure type I50.9 ; Hypercholesterolemia E78.00 ; Nonsustained ventricular tachycardia I47.2 and Other ventricular tachycardia I47.29 Moris Yu MD [address] [place] [address] [id number] 08/29/2023 Moris Yu Acute pneumonia J18. 9 ; Thrombocytopenia D69.6 ; Elevated serum creatinine R79.89 ; Lower extremity edema R60.0 ; Gross hematuria R31.0 and Dental abscess K04.7 Moris Yu MD [address] [place] [address] [id number] 09/14/2023 Moris Yu Dysuria R30.0 ; Acut e diarrhea R19.7 and Acute constipation K59.00 Moris Yu MD [address] [place] [address] [id number] 09/25/2023 Moris Yu Status post insertio n of drug eluting coronary artery stent Z95.5 ; Paroxysmal atrial fibrillation I48.0 and Chronic congestive heart failure, unspecified heart failure type I50.9 Moris Yu MD [address] [place] [address] [id number] 03/08/2024 Moris Yu Gross hematuria R31. 0 [...] Moris Yu MD [address] [place] [address] [id number] 08/28/2023 Moris Yu MD [address] [place] [address] [id number] 09/08/2023 Moris Yu MD [address] [place] [address] [id number] 09/08/2023 Moris Yu MD [address] [place] [address] [id number] 09/19/2023 Moris Yu MD [address] [place], [place] [id number] 04/05/2024 Moris Yu Abnormal computed tomography of abdomen and pelvis R93.5 Moris Yu MD [address] [place], [place] [id number] 06/18/2024 Moris Yu Diarrhea R19.7 Assessments Encounter [...] SERIES 04/05/2024 CT head/brain wo con 07/28/2022 GI Panel 06/18/2024 Future Test Test Name Order Date XR CHEST 2 VIEW PA & LAT 09/05/2023 Next Appt Details Provider Name:Moris eastmanr, 09/06/2024 08:00:00 AM, [address] [place] [address], [address] [place] [address], [phone], Provider Name:Moris Wiggins ier, 09/13/2024 02:00:00 PM, [address] [place] [address], Suite [facility], [place], [place], [phone], Provider Name:Moris Wiggins ier, 03/06/2025 08:00:00 AM, [address] [place] [address], Suite [facility], [place], [place], [phone], Provider Name:Moris Wiggins ier, 03/13/2025 02:30:00 PM, [address] [place] [address], Suite [facility], [place], [place], [phone], Insurance Providers Payer Name Payer Address Payer Phone Subscriber Number Group Number Insured Name Patient Relationship to Insured Coverage Start Date Coverage End Date [employer] [address] [place] [address] [id number] Erasmo Quevedo Self - patient is the insured [facility] [address] [place] [address] [id number] Erasmo Quevedo Self - patient is the insured Medical (General) History Medical History History ICD Code colonoscopy - 04/2006 - repea t 5 years. 07/27/12; colonoscopy 05/14/2013 - repeat 5 years; Colonoscopy done 11/19/[address] Srivastava - no further testing indicated. Achilles bursitis or tendinitis HX of Kidney Stones Incidental Lung Nodule
--- OUTSIDE RECORDS SUMMARY | 2024-06-19 13:38 | XMS_ITS | Clinical Summary ---
Author Organization [facility] Address [address] [place] [address] Phone Care Team Providers Care Gear Tooth Grinding Machine Operator Name Role Phone Moris Yu [...] age to complete this topic Insurance Medicare [facility] Medicare [facility] Care Teams Gear Tooth Grinding Machine Operator Relationship Specialty Start Date End Date Moris Yu MD [address] [place] [address] PCP - General Internal Medicine 08/14/20
--- OUTSIDE RECORDS SUMMARY | 2024-06-19 13:38 | XMS_ITS ---
Author Organization Moris Yu MD Address [address] [place], [place] [id number] Care Team Providers Care Oracle [employer]ile [employer] Consultant Name Role Phone Moris Yu Primary Care Provider [phone] Results Component Value Reference Range Notes GI Panel (Not yet reviewed b y provider) Interpretation: Performing Lab:[facility], [address] [place] [id number] Notes/Report: Campylobacter Not Detected Not Detect. Plesiomonas [...] is performed by Multiplexed PCR, utilizing the Quietly Array. Comprehensive Met. Panel Reviewed date:06/19/2024 12:33:30 PM Interpretation: Performing Lab:[facility], [address] [place] [phone] Notes/Report: Sodium 138 135-145 mmol/L Potassium 4.1 [...] 3.5-5.0 g/dL Alkaline Phosphatase 97 39-117 U/L REASON FOR VISIT Diarrhea Encounters Encounter Location Date Provider Diagnosis Moris Yu MD [address] [place] [address] [address] [place], [place] [id number] 06/18/2024 Moris Yu Diarrhea R19.7 Assessments Encounter [...] Name Order Date CBC w DIFF 06/18/2024 GI Panel 06/18/2024 Next Appt Details Provider Name:Moris Wiggins ier, 09/06/2024 08:00:00 AM, [address] [place] [address], Suite [facility], [place], [place], [phone], Provider Name:Moris Wiggins ier, 09/13/2024 02:00:00 PM, [address] [place] [address], Suite [facility], [place], [place], [phone], Provider Name:Moris Wiggins ier, 03/06/2025 08:00:00 AM, [address] [place] [address], Suite [facility], [place], [place], [phone], Provider Name:Moris Wiggins ier, 03/13/2025 02:30:00 PM, [address] [place] [address], Suite [facility], [place], [place], [phone], Progress Notes * Erasmo QUEVEDO BDOB: [birth year] (79 yo M)Acc No.[id number]:06/18/2024 Patient:?Erasmo QUEVEDO :1945???Age:79 Y???Sex:Male Address:[facility] [address], [address] [place] [id number] Subjective: * Chief Complaints: * ???Diarrhea * Medical History:? * Surgical History:? * Hospitalization/Major Diagno stic Procedure:? * Medications:? Objective: * Vitals:? * Physical Examination:? Assessment: * Assessment: 1.?Diarrhea - R19.7??? Plan: * Treatment: * Procedure Codes:? * true * Date:? Generated for Marie vázquez/Jacob/eTransmitting on:?06/19/2024 01:38 PM EDT
--- OUTSIDE RECORDS SUMMARY | 2024-06-19 13:38 | XMS_ITS ---
Author Organization Moris Yu MD Address [address] [place] [phone] Care Team Providers Care Organ Pipe Voicer Name Role Phone Moris Yu Primary Care Provider [phone] Allergies Allergen (clinical drug ingredient) Drug/Non Drug [...] Location Date Provider Diagnosis Moris Yu MD [address] [place] [address] [place] [phone] 03/08/2024 Moris Yu Gross hematuria R31. 0 [...] 08:00:00 AM, [address], [address], [place], [place], [phone], Provider Name:Moris San Bradyeunice ier, 09/13/2024 02:00:00 PM, [address], [address], [place], [place], [phone], Provider Name:Moris eastmanr, 03/06/2025 08:00:00 AM, [address], [address], [place], [phone], Provider Name:Moris Mean Feliciano eastmanr, 03/13/2025 02:30:00 PM, [address], [address], [place], [phone], Progress Notes * Erasmo QUEVEDO BDOB: (78 yo M)Acc No.[id number]:03/08/2024 Patient:?Erasmo Quevedo B Provider:?Moris Yu MD :1945???Age:78 Y???Sex:Male Rakesh e:03/08/2024 Address:[address]-[address] Subjective: * Chief Complaints: * ???CBACK [...] Pets: none. no Travel outside of the [place]. * Medications:?TakingMultaq 40 0 MG Tablet [...] Auto 0.000 0.0-0. 012 - X10*3/uL ???Lab:[facility] [place]. P iris Fast (Order Date - 03/01/2024) [...] Blood Large (3+) A Negative - ?Specific [place] - Urine 1.020 1.005-1.025 - ?Urine Protein [...] MD Date:?0 03/08/2024 Generated for Marie vázquez/Jacob/Komal on:?06/19/2024 01:37 PM EDT History and Physical Notes * [...]
--- OUTSIDE RECORDS SUMMARY | 2024-06-19 13:38 | XMS_ITS | Clinical Summary ---
Author Organization [employer] [facility] it Address [address] [place] [address] Care Team Providers Care Shared Services Manager Name Role Phone Moris Yu MD Primary [...] Asthma 11/08/2016 DX:Asthma Interstitial lung disease ([facility] [place] V[facility], [facility] V28) 11/08/2016 DX:Interstitial lung disease (HCC) Pulmonary sarcoidosis ([facility] V24) 11/24/2016 DX:Pulmonary sarcoidosis (HCC) Seasonal allergic rhinitis 11/24/2016 DX:Se asonal allergic rhinitis Nephrolithiasis 03/17/2017 DX:Nephrolithias is; COMMENT: 06/29/2015 Hyperlipidemia 04/20/2017 DX:Hyperlipidemi a Asthma DX:Asthma Hypertension DX:Hypertension Kidney damage DX:Kidney damage Osteoarthritis DX:Osteoarthriti s Sarcoidosis, lung ([facility] V24) DX:Sarcoidosis, lung (HCC) PVC (premature ventricular [...] this topic Medical Devices Implanted Type Area Bridge Rigger Device Identifier Shelf Expiration Date Model / Serial / Lot Shell Trident Ii F 58mm 5 Screw Hole Cluster Tritanium - [id number] Implanted:Qty: 1 on 08/29/2019 by Ron Sanchez MD Right: Hip [employer] [id number] 12/24/2023 702-04-58F / / [id number] Screw Trident Ii 30mm 6.5mm Low Profile Hexagonal Bone - [id number] Implanted:Qty: 1 on 08/29/2019 by Ron Sanchez MD Right: Hip [employer] [id number] 01/08/2024 5518-6088 / / 33TH Insert Trident 10d F 36mm X3 Acetabular Hip - [id number] Implanted:Qty: 1 on 08/29/2019 by Ron Sanchez MD Right: Hip [employer] [id number] 01/14/2024 623-10-36F / / [id number] Screw Trident Ii 30mm 6.5mm Low Profile Hexagonal Bone - [id number] Implanted:Qty: 1 on 08/29/2019 by Ron Sanchez MD Right: Hip [employer] [id number] 12/10/2023 0509-8179 / / 3HYD Stem Hip Neck Angle 127 Degree Accolade Ii Sz6 - [id number] Implanted:Qty: 1 on 08/29/2019 by Ron Sanchez MD Right: Hip [employer] [id number] 10/04/2022 0735-7177 / / [id number] Head V40 -5mm 36mm Delta Femoral Hip - [id number] Implanted:Qty: 1 on 08/29/2019 by Ron Sanchez MD Right: Hip [employer] [id number] 07/31/2024 6570-0-036 / / [id number] Care Teams Shared Services Manager Relationship Specialty Start Date End Date Moris Yu MD PCP - General Internal Medicine 01/24/17
== END 2024-06-19 11:17 | disposition home or self-care (01) ==
LOC: HO.LNP 11:16
PROVIDERS: Visit Provider Internal Medicine
DX: R19.7 Diarrhea, unspecified (principal)
CPT/HCPCS: 87507

== ENCOUNTER 2024-06-20 13:47 | Outpatient (AMB) | payer MEDICARE, OTHER, SELFPAY ==
[2024-06-20 13:47] VITALS: BP 98/58; PULSE 59; O2SAT 100; BMI 29.0
--- NOTE | 2024-06-20 13:47 | HO.NEPHOV_ITS ---
Vital Signs 06/20/24 13:47 Height 5 ft 10 in Weight 202 lb 2 oz BMI 29.0 BP 98/58 L Blood Pressure Location Lt brachial Position Sitting Pulse 59 Pulse Oximetry (%) 100 Oxygen Delivery Method Room Air Intake Visit Reasons: ETELVINA/ Conf Accompanied by: Spouse Allergies gadobenic acid [Multihance] Allergy (Severe, Verified 06/20/24 13:47) Rash azithromycin [From ZITHROMAX Z-JOYCE] Allergy (Intermediate, Verified 06/20/24 13:47) HIVES Iodinated Contrast Media [IV CONTRAST] Allergy (Intermediate, Verified 06/20/24 13:47) HIVES Penicillins Allergy (Mild, Verified 06/20/24 13:47) RASH Medication List - Last Reconciled 06/20/24 by Mau Hodge MD allopurinol 100 mg PO DAILY apixaban (Eliquis) 5 mg PO BID atorvastatin 80 mg PO DAILY brimonidine 0.1% (Alphagan P) 1 drp ophthalmic (eye) BID dronedarone (Multaq) 400 mg PO Q12H 90 days finasteride 5 mg PO DAILY 90 days finasteride 5 mg PO DAILY mometasone-formoterol 200-5 mcg/actuation (Dulera) 1 puff inhalation BID montelukast 10 mg PO DAILY@1200 potassium citrate ER 10 mEq PO BID 90 days tamsulosin 0.4 mg PO BEDTIME tiotropium bromide 2.5 mcg/actuation (Spiriva Respimat) 2 inhalations inhalation DAILY HPI Comments Details: Elderly male with pertinent history of paroxysmal atrial flutter on Eliquis, BPH, 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 Underwent cystoscopy and stent placement. Stent was removed in October 2023. Blood pressure has been relatively low. Bisoprolol has been cut by 50% by Cardiology. He was accompanied by his today. He is still has relatively low blood pressure. He has been able to maintain fluid intake. No nausea or vomiting. No chest pain no palpitation. No urinary symptoms at present. Recent creatinine was 1.9 as of October 23 which is higher than the baseline. 03/26/2024. Seen by Urology recently still has a stone. Waiting for a follow up CT scan followed by a possible procedure. 06/20/24 Accompanied by family Has diarrhea. Lost weight Not feeling well Waiting for urological procedure in July [facility] Medical History Pulmonary nodules Chronic restrictive lung disease Chronic renal disease Nonsustained ventricular tachycardia PVCs (premature ventricular contractions) CAD (coronary artery disease) Dyspnea Chronic allergic rhinitis Asthma Sarcoidosis Surgical History H/O hernia repair Stented coronary artery Family History Father Atrial fibrillation Mother Atrial fibrillation Other Asthma Social History Household Members: Spouse Housing: House Do you presently have visiting nurse or other home services: No Alcohol intake: never Patient Tobacco Use Status: Never used Tobacco Tobacco use type: Cigar e-Cigarette/Vaping Use: Never Used Second Hand Smoke Exposure: No Advance Directives Date on File: 09/14/23 service: No Physical Exam Vital Signs: Last Vital Signs Pulse 59 06/20/24 13:47 BP 98/58 L 06/20/24 13:47 Pulse Ox 100 06/20/24 13:47 Oxygen Delivery Method Room Air 06/20/24 13:47 BMI result Body Mass Index 29.0 Currently in a wheelchair comfortable. Neck supple no JVD. Mucosa dry. Lungs entry equal. Heart has been steroid no gallop Abdomen soft nontender Extremities no edema. Results Reviewed Nephrology Results: Hgb 11.9 g/dl (14.0-18.0) L 06/18/24 WBC 5.6 X10*3/uL (4.8-10.8) 06/18/24 Plt Count 167 X10*3/uL (160-400) 06/18/24 Sodium 138 mmol/L (135-145) 06/18/24 Potassium 4.1 mmol/L (3.3-5.1) 06/18/24 Chloride 110 mmol/L (96-108) H 06/18/24 Carbon Dioxide 18 mmol/L (22-29) L 06/18/24 BUN 15 mg/dL (9-16) 06/18/24 Creatinine 1.53 mg/dL (0.5-1.4) H 06/18/24 Calcium 9.1 mg/dL (8.4-10.2) 06/18/24 Assessment & Plan Assessment & Plan (1) ETELVINA (acute kidney injury): Comment: Due to obstructive uropathy. Code(s): N17.9 - Acute kidney failure, unspecified Category: Medical Plan: Renal function improved after leading obstruction. Off Losartan Cr is down to 1.5 Encouraged him to increase fluid intake. (2) Bilateral kidney stones: Code(s): N20.0 - Calculus of kidney Category: Medical Plan: Increase p.o. fluid intake Continue with lemonade Low-sodium diet. (3) HTN (hypertension): Code(s): I10 - Essential (primary) hypertension Category: Medical Plan: Blood pressure is low Continue to hold losartan. Orders: Orders Basic Metabolic Panel 4 Months I10 - Essential (primary) hypertension, N17.9 - Acute kidney failure, unspecified Coding Level of Care Code Est Pt Level 4 (72360) Diagnoses ETELVINA (acute kidney injury) N17.9 Bilateral kidney stones N20.0 HTN (hypertension) I10
--- OUTSIDE RECORDS SUMMARY | 2024-06-20 16:11 | XMS_ITS | Clinical Summary ---
Author Organization [facility] Address [address] [place] [address] Care Team Providers Care Cardiac Rehabilitation Program Director Name Role Phone Moris Yu MD Primary [...] mg by nebulization daily. 0 Active Tiotropium [place] Monohydrate (SPIRIVA RESPIMAT) 2.5 MCG/ACT AERS Inhale [...] this topic Medical Devices Implanted Type Area Sales Recruiting Coordinator Device Identifier Shelf Expiration Date Model / Serial / Lot Shell Trident Ii F 58mm 5 Screw Hole Cluster Tritanium - [id number] - [id number] Implanted:Qty: 1 on 08/29/2019 by Ron Sanchez MD at [facility] Right: Hip [employer] [id number] 12/24/2023 702-04-58F / / [id number] Screw Trident Ii 30mm 6.5mm Low Profile Hexagonal Bone - 668577 - [id number] Implanted:Qty: 1 on 08/29/2019 by Ron Sanchez MD at [facility] and [facility] Right: Hip [employer] [id number] 01/08/2024 5966-7222 / / 33TH Insert Trident 10d F 36mm X3 Acetabular Hip - 522400 - [id number] Implanted:Qty: 1 on 08/29/2019 by Ron Sanchez MD at [facility] and [facility] Right: Hip [employer] [id number] 01/14/2024 623-10-36F / / [id number] Screw Trident Ii 30mm 6.5mm Low Profile Hexagonal Bone - [id number] - [id number] Implanted:Qty: 1 on 08/29/2019 by Ron Sanchez MD at [facility] and [facility] Right: Hip [employer] [id number] 12/10/2023 9547-0040 / / [id number] Stem Hip Neck Angle 127 Degree Accolade Ii Sz6 - 580071 - [id number] Implanted:Qty: 1 on 08/29/2019 by Ron Sanchez MD at [facility] and [facility] Right: Hip [employer] [id number] 10/04/2022 0774-0957 / / [id number] Head V40 -5mm 36mm Delta Femoral Hip - 716538 - [id number] Implanted:Qty: 1 on 08/29/2019 by Ron Sanchez MD at [facility] and [facility] Right: Hip [employer] [id number] 07/31/2024 6570-0-036 / / [id number] Advance Directives For more information, please contact: [phone] Latest Code Status on File Code Status [...] way: discussion with patient . Care Teams Cardiac Rehabilitation Program Director Relationship Specialty Start Date End Date Moris Yu MD [address] [place] [address] PCP - General Internal Medicine 06/26/19
--- OUTSIDE RECORDS SUMMARY | 2024-06-20 16:11 | XMS_ITS | Clinical Summary ---
Author Organization [facility] it Address [address] [place] [address] Care Team Providers Care Dye Weigher Helper Name Role Phone Moris Yu MD Primary [...] TOTAL HIP; Surgeon: Ron Sanchez MD; Location[facility] Service: Orthopedics; Laterality: Right; JOINT REPLACEMENT PROCEDURE:JOINT REPLACEMENT Medical History Medical History Date Comments Asthma 11/08/2016 DX:Asthma Interstitial lung disease ([place]/[facility] V24, [facility] V28) 11/08/2016 DX:Interstitial lung disease (HCC) Pulmonary sarcoidosis ([facility] V24) 11/24/2016 DX:Pulmonary sarcoidosis (HCC) Seasonal allergic rhinitis 11/24/2016 DX:Se asonal allergic rhinitis Nephrolithiasis 03/17/2017 DX:Nephrolithias is; COMMENT: 06/29/2015 Hyperlipidemia 04/20/2017 DX:Hyperlipidemi a Asthma DX:Asthma Hypertension DX:Hypertension Kidney damage DX:Kidney damage Osteoarthritis DX:Osteoarthriti s Sarcoidosis, lung ([facility] V24) DX:Sarcoidosis, lung (HCC) PVC (premature ventricular [...] this topic Medical Devices Implanted Type Area Orchard Hand Device Identifier Shelf Expiration Date Model / Serial / Lot Shell Trident Ii F 58mm 5 Screw Hole Cluster Tritanium - [id number] Implanted:Qty: 1 on 08/29/2019 by Ron Sanchez MD Right: Hip [employer] [id number] 12/24/2023 702-04-58F / / [id number] Screw Trident Ii 30mm 6.5mm Low Profile Hexagonal Bone - [id number] Implanted:Qty: 1 on 08/29/2019 by Ron Sanchez MD Right: Hip [employer] [id number] 01/08/2024 5281-9618 / / 33TH Insert Trident 10d F 36mm X3 Acetabular Hip - [id number] Implanted:Qty: 1 on 08/29/2019 by Ron Sanchez MD Right: Hip [employer] [id number] 01/14/2024 623-10-36F / / [id number] Screw Trident Ii 30mm 6.5mm Low Profile Hexagonal Bone - [id number] Implanted:Qty: 1 on 08/29/2019 by Ron Sanchez MD Right: Hip [employer] [id number] 12/10/2023 3458-5147 / / 3HYD Stem Hip Neck Angle 127 Degree Accolade Ii Sz6 - [id number] Implanted:Qty: 1 on 08/29/2019 by Ron Sanchez MD Right: Hip [employer] [id number] 10/04/2022 1954-9247 / / [id number] Head V40 -5mm 36mm Delta Femoral Hip - [id number] Implanted:Qty: 1 on 08/29/2019 by Ron Sanchez MD Right: Hip [employer] [id number] 07/31/2024 6570-0-036 / / [id number] Care Teams Dye Weigher Helper Relationship Specialty Start Date End Date Moris Yu MD PCP - General Internal Medicine 01/24/17
--- OUTSIDE RECORDS SUMMARY | 2024-06-20 16:11 | XMS_ITS | Continuity of Care Document ---
Author Name [facility] Organization [facility] Care Team Providers Care Manufacturer Representative Name Role Phone [facility] Unavailable Unavailable Medications Combined list of outpatient medications from Department of Defense and Veterans Affairs facilities.Medications provided include 1) outpatient medications from the last 15 months, and 2) patient-reported medications. Medication Details Route Status Patient Instructions Prescription Expires Prescription Number Last Dispense Date Ordering Provider Order Date Order Qty Source ALLOPURINOL (ALLOPURINO L), 100MG, TABLET, ORAL, '[facility], 1000 ea. BOTTLE Active [id number] 4 2023 90 Pharmac y Data Transac tion Service Facilit y AMOX TR-POTASSIU M CLAVULANATE (AMOXICILLI N/POTASSIUM CLAV), 875-125 MG, TABLET, ORAL, [facility], 20 ea. BOTTLE Active [id number] 4 2023 14 Pharmac y Data Transac tion Service Facilit y ATORVASTATI N CALCIUM (atorvastat in calcium), 80 MG, TABLET, ORAL, PRAVIN PHARMACEU, 500 ea. BOTTLE Active [id number] 4 2023 90 Pharmac y Data Transac tion Service Facilit y BISOPROLOL FUMARATE (bisoprolol fumarate), 5 MG, TABLET, ORAL, [employer]., 100 ea. BOTTLE Active [id number] 2023 90 Pharmac y Data Transac tion Service Facilit y BISOPROLOL FUMARATE (bisoprolol fumarate), 5 MG, TABLET, ORAL, [employer] 100 ea. BOTTLE Active [id number] 4 2023 90 Pharmac y Data Transac tion Service Facilit y ELIQUIS (APIXABAN), 5 MG, TABLET, ORAL, [facility] , 60 ea. BOTTLE Active [id number] 4 2023 180 Pharmac y Data Transac tion Service Facilit y ELIQUIS (APIXABAN), 5 MG, TABLET, ORAL, [facility] , 60 ea. BOTTLE Active [id number] 4 2023 180 Pharmac y Data Transac tion Service Facilit y ELIQUIS (APIXABAN), 5 MG, TABLET, ORAL, [facility] , 60 ea. BOTTLE Cancele d [id number] : 2023 0 Pharmac y Data Transac tion Service Facilit y ELIQUIS (APIXABAN), 5 MG, TABLET, ORAL, [facility] , 60 ea. BOTTLE Cancele d [id number] : 2023 0 Pharmac y Data Transac tion Service Facilit y ELIQUIS (APIXABAN), 5 MG, TABLET, ORAL, [facility] , 60 ea. BOTTLE Active [id number] 4 2023 60 Pharmac y Data Transac tion Service Facilit y FINASTERIDE (FINASTERID E), 5 MG, TABLET, ORAL, EXELAN PHARMACE, 90 ea. BOTTLE Active [id number] 4 2023 90 Pharmac y Data Transac tion Service Facilit y FINASTERIDE (FINASTERID E), 5 MG, TABLET, ORAL, EXELAN PHARMACE, 90 ea. BOTTLE Active [id number] 4 2023 90 Pharmac y Data Transac tion Service Facilit y FINASTERIDE (FINASTERID E), 5 MG, TABLET, ORAL, EXELAN PHARMACE, 90 ea. BOTTLE Active [id number] 4 2023 90 Pharmac y Data Transac tion Service Facilit y MULTAQ (DRONEDARON E HYDROCHLORI DE), 400 MG, TABLET, ORAL, SANOFI-AVEN TIS, 60 ea. BOTTLE Active [id number] 4 2023 180 Pharmac y Data Transac tion Service Facilit y MULTAQ (DRONEDARON E HYDROCHLORI DE), 400 MG, TABLET, ORAL, SANOFI-AVEN TIS, 60 ea. BOTTLE Active [id number] 4 2023 60 Pharmac y Data Transac tion Service Facilit y MULTAQ (DRONEDARON E HYDROCHLORI DE), 400 MG, TABLET, ORAL, SANOFI-AVEN TIS, 60 ea. BOTTLE Active [id number] 4 2023 60 Pharmac y Data Transac tion Service Facilit y POTASSIUM CITRATE (POTASSIUM CITRATE), 10MEQ, TABLET SA, ORAL, UPSHER PICKERING, 100 ea. BOTTLE Active [id number] 2023 200 Pharmac y Data Transac tion Service Facilit y POTASSIUM CITRATE (POTASSIUM CITRATE), 10MEQ, TABLET SA, ORAL, UPSHER PICKERING, 100 ea. BOTTLE Active [id number] 2023 200 Pharmac y Data Transac tion Service Facilit y Immunizations Combined list of available immunizations from the Department of Defense and Veterans Affairs facilities. Immunization Series Date Given Administered By Site Reaction Lot Number CVX Code Drug Baker Paint Status Comments Source Tdap 2019 BOGDASARIAN, () Not Given Tdap [facility] Influenza, injectable, MDCK, quadrivalent, preservative 2018 ANNABEL,D () Not Given Influenza , injectabl e, MDCK, quadrival ent, preservat mele [facility] zoster recombinant 2018 ANNABEL,D () [...]
--- OUTSIDE RECORDS SUMMARY | 2024-06-20 16:11 | XMS_ITS | Clinical Summary ---
Author Organization [facility] Address [address] [place] [address] Phone Care Team Providers Care Ccu Nurse Name Role Phone Moris Yu MD Primary [...] age to complete this topic Insurance Medicare [facility] Medicare [facility] Care Teams Ccu Nurse Relationship Specialty Start Date End Date Moris Yu MD [address] [place] [address] PCP - General Internal Medicine 08/14/20
== END 2024-06-20 14:06 | disposition home or self-care (01) ==
LOC: HO.HKA 13:48
PROVIDERS: PCP Internal Medicine; Visit Provider Internal Medicine Hypertension Specialist
DX: N17.9 Acute kidney failure, unspecified (principal); N20.0 Calculus of kidney; I10 Essential (primary) hypertension
CPT/HCPCS: 99214

== ENCOUNTER → 2024-06-20 13:47 | Outpatient (BNVA) | payer MEDICARE, OTHER, SELFPAY | PROVIDERS: PCP Internal Medicine; Visit Provider Internal Medicine Hypertension Specialist | DX: I10 Essential (primary) hypertension (principal); N17.9 Acute kidney failure, unspecified; N20.0 Calculus of kidney; J44.89 Other specified chronic obstructive pulmonary disease | CPT/HCPCS: 99212 ==

== ENCOUNTER 2024-07-31 07:28 | Day surgery (SDC) | payer MEDICARE, OTHER, SELFPAY ==
--- OUTSIDE RECORDS SUMMARY | 2024-06-25 07:45 | XMS_ITS | Clinical Summary ---
Author Organization [email or web address] [facility] it Address [address] [place] [address] Care Team Providers Care Purse Framer Name Role Phone Moris Yu MD Primary [...] TOTAL HIP; Surgeon: Ron Sanchez MD; Location: [facility] ([facility]); Service: Orthopedics; Laterality: Right; JOINT REPLACEMENT PROCEDURE:JOINT REPLACEMENT Medical History Medical History Date Comments Asthma 11/08/2016 DX:Asthma Interstitial lung disease ([facility] [place]/[facility] V24, [facility] V28) 11/08/2016 DX:Interstitial lung disease (HCC) Pulmonary sarcoidosis ([facility] V24) 11/24/2016 DX:Pulmonary sarcoidosis (HCC) Seasonal allergic rhinitis 11/24/2016 DX:Se asonal allergic rhinitis Nephrolithiasis 03/17/2017 DX:Nephrolithias is; COMMENT: 06/29/2015 Hyperlipidemia 04/20/2017 DX:Hyperlipidemi a Asthma DX:Asthma Hypertension DX:Hypertension Kidney damage DX:Kidney damage Osteoarthritis DX:Osteoarthriti s Sarcoidosis, lung ([facility] V24) DX:Sarcoidosis, lung (HCC) PVC (premature ventricular [...] this topic Medical Devices Implanted Type Area Automatic Washer Mechanic Device Identifier Shelf Expiration Date Model / Serial / Lot Shell Trident Ii F 58mm 5 Screw Hole Cluster Tritanium - [id number] Implanted:Qty: 1 on 08/29/2019 by Ron Sanchez MD Right: Hip [employer] [id number] 12/24/2023 702-04-58F / / [id number] Screw Trident Ii 30mm 6.5mm Low Profile Hexagonal Bone - [id number] Implanted:Qty: 1 on 08/29/2019 by Ron Sanchez MD Right: Hip [employer] [id number] 01/08/2024 5948-1870 / / 33TH Insert Trident 10d F 36mm X3 Acetabular Hip - [id number] Implanted:Qty: 1 on 08/29/2019 by Ron Sanchez MD Right: Hip [employer] [id number] 01/14/2024 623-10-36F / / [id number] Screw Trident Ii 30mm 6.5mm Low Profile Hexagonal Bone - [id number] Implanted:Qty: 1 on 08/29/2019 by Ron Sanchez MD Right: Hip [employer] [id number] 12/10/2023 0676-0501 / / [id number] Stem Hip Neck Angle 127 Degree Accolade Ii Sz6 - [id number] Implanted:Qty: 1 on 08/29/2019 by Ron Sanchez MD Right: Hip [employer] [id number] 10/04/2022 5742-7019 / / [id number] Head V40 -5mm 36mm Delta Femoral Hip - [id number] Implanted:Qty: 1 on 08/29/2019 by Ron Sanchez MD Right: Hip [employer] [id number] 07/31/2024 6570-0-036 / / [id number] Care Teams Purse Framer Relationship Specialty Start Date End Date Moris Yu MD PCP - General Internal Medicine 01/24/17
--- OUTSIDE RECORDS SUMMARY | 2024-06-25 07:45 | XMS_ITS | Continuity of Care Document ---
Author Name [facility] Organization [facility] Care Team Providers Care Fixed Capital Clerk Name Role Phone [facility] Unavailable Unavailable Medications Combined list of outpatient medications from Department of Defense and Veterans Affairs facilities.Medications provided include 1) outpatient medications from the last 15 months, and 2) patient-reported medications. Medication Details Route Status Patient Instructions Prescription Expires Prescription Number Last Dispense Date Ordering Provider Order Date Order Qty Source ALLOPURINOL (ALLOPURINO L), 100MG, TABLET, ORAL, [facility], 1000 ea. BOTTLE Active [id number] 4 2023 90 Pharmac y Data Transac tion Service Facilit y AMOX TR-POTASSIU M CLAVULANATE (AMOXICILLI N/POTASSIUM CLAV), 875-125 MG, TABLET, ORAL, [facility], 20 ea. BOTTLE Active [id number] 4 2023 14 Pharmac y Data Transac tion Service Facilit y ATORVASTATI N CALCIUM (atorvastat in calcium), 80 MG, TABLET, ORAL, PRAVIN PHARMACEU, 500 ea. BOTTLE Active [id number] 4 2023 90 Pharmac y Data Transac tion Service Facilit y BISOPROLOL FUMARATE (bisoprolol fumarate), 5 MG, TABLET, ORAL, [employer] 100 ea. BOTTLE Active [id number] 2023 90 Pharmac y Data Transac tion Service Facilit y BISOPROLOL FUMARATE (bisoprolol fumarate), 5 MG, TABLET, ORAL, [employer] 100 ea. BOTTLE Active [id number] 4 2023 90 Pharmac y Data Transac tion Service Facilit y ELIQUIS (APIXABAN), 5 MG, TABLET, ORAL, [facility] , 60 ea. BOTTLE Active [id number] 2023 180 Pharmac y Data Transac tion Service Facilit y ELIQUIS (APIXABAN), 5 MG, TABLET, ORAL, [facility] , 60 ea. BOTTLE Active [id number] 2023 180 Pharmac y Data Transac tion Service Facilit y ELIQUIS (APIXABAN), 5 MG, TABLET, ORAL, [facility] , 60 ea. BOTTLE Cancele d [id number] : 2023 0 Pharmac y Data Transac tion Service Facilit y ELIQUIS (APIXABAN), 5 MG, TABLET, ORAL, [facility] , 60 ea. BOTTLE Cancele d [id number] : 2023 0 Pharmac y Data Transac tion Service Facilit y ELIQUIS (APIXABAN), 5 MG, TABLET, ORAL, [facility] , 60 ea. BOTTLE Active [id number] 4 2023 60 Pharmac y Data Transac tion Service Facilit y MULTAQ (DRONEDARON E HYDROCHLORI DE), 400 MG, TABLET, ORAL, SANOFI-AVEN TIS, 60 ea. BOTTLE Active [id number] 4 2023 180 Pharmac y Data Transac tion Service Facilit y MULTAQ (DRONEDARON E HYDROCHLORI DE), 400 MG, TABLET, ORAL, SANOFI-AVEN TIS, 60 ea. BOTTLE Active [id number] 2023 60 Pharmac y Data Transac tion Service Facilit y MULTAQ (DRONEDARON E HYDROCHLORI DE), 400 MG, TABLET, ORAL, SANOFI-AVEN TIS, 60 ea. BOTTLE Active [id number] 4 2023 60 Pharmac y Data Transac tion Service Facilit y POTASSIUM CITRATE (POTASSIUM CITRATE), 10MEQ, TABLET SA, ORAL, UPSHER PICKERING, 100 ea. BOTTLE Active [id number] 2023 200 Pharmac y Data Transac tion Service Facilit y POTASSIUM CITRATE (POTASSIUM CITRATE), 10MEQ, TABLET SA, ORAL, [employer]HER P[employer]ERING, 100 ea. BOTTLE Active [id number] 4 2023 200 Pharmac y Data Transac tion Service Facilit y Immunizations Combined list of available immunizations from the Department of Defense and Veterans Affairs facilities. Immunization Series Date Given Administered By Site Reaction Lot Number CVX Code Drug Account Manager Status Comments Source Tdap 2019 EVAN, () Not Given Tdap [facility] Influenza, injectable, MDCK, quadrivalent, preservative 2018 ANNABEL,D () Not Given Influenza , injectabl e, MDCK, quadrival ent, preservat mele [facility] zoster recombinant 2018 ANNABEL,D () Not Given zoster recombina nt [facility] Influenza, seasonal, injectable 2014 ANNABEL,D () Not Given Influenza , seasonal, injectabl e DoD Social History Combined list of available smoking, tobacco, and other social history from Department of Defense and Veterans Affairs facilities. Social History Type Response Date Comment Sour e This section is an empty social history section. DoD
--- OUTSIDE RECORDS SUMMARY | 2024-06-25 07:45 | XMS_ITS | Clinical Summary ---
Author Organization [facility] Address [address] [place] [address] Care Team Providers Care Assistant Mechanic Name Role Phone Moris Yu MD Primary [...] mg by nebulization daily. 0 Active Tiotropium [place] Monohydrate (SPIRIVA RESPIMAT) 2.5 MCG/ACT AERS Inhale [...] topic Medical Devices Implanted Type Area Automatic Splicing Machine Operator Device Identifier Shelf Expiration Date Model / Serial / Lot Shell Trident Ii F 58mm 5 Screw Hole Cluster Tritanium - [id number] - [id number] Implanted:Qty: 1 on 08/29/2019 by Ron Sanchez MD at [facility] Right: Hip [employer] [id number] 12/24/2023 702-04-58F / / [id number] Screw Trident Ii 30mm 6.5mm Low Profile Hexagonal Bone - [id number] - [id number] Implanted:Qty: 1 on 08/29/2019 by Ron Sanchez MD at [facility] and [facility] Right: Hip [employer] [id number] 01/08/2024 7958-1686 / / [id number] Insert Trident 10d F 36mm X3 Acetabular Hip - [id number] - [id number] Implanted:Qty: 1 on 08/29/2019 by Ron Sanchez MD at [facility] and [facility] Right: Hip [employer] [id number] 01/14/2024 623-10-36F / / [id number] Screw Trident Ii 30mm 6.5mm Low Profile Hexagonal Bone - [id number] - [id number] Implanted:Qty: 1 on 08/29/2019 by Ron Sanchez MD at [facility] and [facility] Right: Hip [employer] [id number] 12/10/2023 2535-2801 / / [id number] Stem Hip Neck Angle 127 Degree Accolade Ii Sz6 - [id number] - [id number] Implanted:Qty: 1 on 08/29/2019 by Ron Sanchez MD at [facility] and [facility] Right: Hip [employer] [id number] 10/04/2022 6987-0960 / / [id number] Head V40 -5mm 36mm Delta Femoral Hip - [id number] - [id number] Implanted:Qty: 1 on 08/29/2019 by Ron Sanchez MD at [facility] and [facility] Right: Hip [employer] [id number] 07/31/2024 6570-0-036 / / [id number] Advance Directives For more information, please contact: [phone] Latest Code Status on File Code Status [...] way: discussion with patient . Care Teams Assistant Mechanic Relationship Specialty Start Date End Date Moris Yu MD [address] [place] [address] PCP - General Internal Medicine 06/26/19
--- OUTSIDE RECORDS SUMMARY | 2024-06-25 07:45 | XMS_ITS | Clinical Summary ---
Author Organization [facility] Address [address] [place] [address] Phone Care Team Providers Care Psych Coordinator Name Role Phone Moris Yu MD Primary Care Provider [phone] Allergies Active Allergy Reactions Criticality Noted Date [...] age to complete this topic Insurance Medicare [facility] Medicare [facility] Care Teams Psych Coordinator Relationship Specialty Start Date End Date Moris Yu MD [address] [place] [address] PCP - General Internal Medicine 08/14/20
[2024-07-29 14:15] VITALS: BMI 29.8
--- NOTE | 2024-07-30 09:12 | HO.ANESPROP2 ---
Documented by User: Amanda Lan NP 07/30/24 09:16 HPI - Anesthesia Eval Consult details Narrative: 79yo M for Right Lithotripsy ESW s/p cysto etc 04/2024 with GA-ETT 7.5 prior to: Cardiac optimized. Follows [facility] Cardiology for CAD with LAD stent, mild-mod aortic stenosis, PAF (eliquis), CMP (EF 35 by MRI 2023) Follows [facility] pulmo for restrictive kayden disease and sarcoid. Last visit 09/2023: chronic interstitial changes pulmonary nodules secondary to his sarcoid history but nothing acute PMFSH Active Problems Active Problems: All Active Problems Preop cardiovascular exam (Acute) Aortic stenosis (Acute) Bilateral hydronephrosis (Acute) Bilateral ureteral calculi (Acute) Paroxysmal atrial flutter (Acute) Low blood pressure (Acute) HTN (hypertension) (Acute) Pre-op chest exam (Acute) BPH loc w urin obs/LUTS (Acute) Ureteral calculus, right (Acute) Ureteral stent present (Acute) Bilateral kidney stones (Acute) Aspiration pneumonitis (Acute) ETELVINA (acute kidney injury) (Acute) Cellulitis of face (Acute) Atrial flutter (Acute) Asthma-COPD overlap syndrome (Acute) MARE (obstructive sleep apnea) (Acute) Cardiomyopathy (Acute) SOB (shortness of breath) on exertion (Acute) Chronic restrictive lung disease (Acute) Chronic renal disease (Acute) PVCs (premature ventricular contractions) (Acute) CAD (coronary artery disease) (Acute) Dyspnea (Acute) Chronic allergic rhinitis (Acute) Asthma (Acute) Past Medical History Medical History Pulmonary nodules Chronic restrictive lung disease Chronic renal disease Nonsustained ventricular tachycardia PVCs (premature ventricular contractions) CAD (coronary artery disease) Dyspnea Chronic allergic rhinitis Asthma Sarcoidosis Family History Family History Father Atrial fibrillation Mother Atrial fibrillation Other Asthma Family history of problems with anesthesia: No Surgical History Surgical History H/O hernia repair Stented coronary artery History of Problems with Anesthesia: No Social History Social History Household Members: Spouse Housing: House Do you presently have visiting nurse or other home services: No Alcohol intake: never Patient Tobacco Use Status: Never used Tobacco Tobacco use type: Cigar e-Cigarette/Vaping Use: Never Used Second Hand Smoke Exposure: No Advance Directives: No Advance Directives Information Provided: Yes Advance Directives Date on File: 09/14/23 service: No Meds Allergies Allergy/AdvReac Type Severity Reaction Status Date / Time gadobenic acid [Multihance] Allergy Severe Rash Verified 07/31/24 08:38 azithromycin Allergy Intermediate HIVES Verified 07/31/24 08:38 [From ZITHROMAX Z-JOYCE] Iodinated Contrast Media Allergy Intermediate HIVES Verified 07/31/24 08:38 [IV CONTRAST] Penicillins Allergy Mild RASH Verified 07/31/24 08:38 Home Medications ?Medication ?Instructions ?Recorded ?Confirmed ?Last Taken ?Type allopurinol 100 mg tablet 100 mg PO DAILY 04/21/20 07/31/24 09/14/23 History montelukast 10 mg tablet 10 mg PO DAILY@1200 04/21/20 07/31/24 09/14/23 History finasteride 5 mg tablet 5 mg PO DAILY 06/29/23 07/31/24 09/14/23 History brimonidine 0.1 % eye drops 1 drp ophthalmic (eye) BID 08/21/23 07/31/24 05/07/24 History (Alphagan P) mometasone-formoterol HFA 200 1 puff inhalation BID 09/04/23 07/31/24 07/31/24 History mcg-5 mcg/actuation aerosol inhaler (Dulera) Exam Height,Weight and Vital Signs: Height 5 ft 10 in Weight 94.347 kg Pertinent Lab Results Pertinent Lab Results: Laboratory Tests 06/18/24 14:38 WBC 5.6 Hgb 11.9 L Hct 36.3 L Plt Count 167 Sodium 138 Potassium 4.1 Chloride 110 H Carbon Dioxide 18 L BUN 15 Creatinine 1.53 H Narrative Narrative: EKG 04/2024 sinus rhythm with 1 PVC, rate 76, QTC 463 milliseconds Cardiac MRI 04/2023 IMPRESSION: 1. Poor quality exam, severely limited due to arrhythmia/motion artifact. 2. Normal left ventricular size. Mild septal wall thickening likely. There appears to be hypokinesis at the basal septum and inferior wall. LVEF = 35%, but this probably underestimates due to arrhythmia and global dysfunction is favored to be mild. T1 mapping reveals no definite abnormality allowing for artifact, with well-visualized regions in the upper normal range. T2 imaging is nondiagnostic. Post-contrast imaging demonstrates mild late gadolinium enhancement at the subendocardial posterolateral left ventricular wall, but inconsistently seen and likely artifactual. No specific findings of infarct or infiltrative disease. 3. Normal right ventricular size. Probably mild global RV dysfunction allowing for arrhythmia. 4. At least moderate stenosis of the aortic valve, not evident in 2015. Correlation with echocardiography is suggested. 5. Small pericardial effusion. No pericardial thickening or enhancement. [place] 2022 Conclusions: - 1. Mild to moderate LV systolic dysfunction 2. Left atrial is mildly dilated 3. Mild aortic stenosis 4. Normal RVSP 5. No pericardial effusion. Airway Loose/Missing/Broken Teeth: Yes (Missing teeth top right and left back. Cracked tooth top front. Denies loose teeth) Assessment and Plan Assessment Anesthesia Assessment: Chart Reviewed Final Anesthetic Review Family History of Problems with Anesthesia: No History of Problems with Anesthesia: No Documented by User: Moo Ayala MD 07/31/24 09:04 [facility] Past Medical History Medical History Pulmonary nodules Chronic restrictive lung disease Chronic renal disease Nonsustained ventricular tachycardia PVCs (premature ventricular contractions) CAD (coronary artery disease) Dyspnea Chronic allergic rhinitis Asthma Sarcoidosis Functional capacity: independent ambulation Family History Family History Father Atrial fibrillation Mother Atrial fibrillation Other Asthma Surgical History Surgical History H/O hernia repair Stented coronary artery Social History Social History Household Members: Spouse Housing: House Do you presently have visiting nurse or other home services: No Alcohol intake: never Patient Tobacco Use Status: Never used Tobacco Tobacco use type: Cigar e-Cigarette/Vaping Use: Never Used Second Hand Smoke Exposure: No Advance Directives: No Advance Directives Information Provided: Yes Advance Directives Date on File: 09/14/23 service: No Meds Allergies Allergy/AdvReac Type Severity Reaction Status Date / Time gadobenic acid [Multihance] Allergy Severe Rash Verified 07/31/24 08:38 azithromycin Allergy Intermediate HIVES Verified 07/31/24 08:38 [From ZITHROMAX Z-JOYCE] Iodinated Contrast Media Allergy Intermediate HIVES Verified 07/31/24 08:38 [IV CONTRAST] Penicillins Allergy Mild RASH Verified 07/31/24 08:38 Home Medications ?Medication ?Instructions ?Recorded ?Confirmed ?Last Taken ?Type allopurinol 100 mg tablet 100 mg PO DAILY 04/21/20 07/31/24 09/14/23 History montelukast 10 mg tablet 10 mg PO DAILY@1200 04/21/20 07/31/24 09/14/23 History finasteride 5 mg tablet 5 mg PO DAILY 06/29/23 07/31/24 09/14/23 History brimonidine 0.1 % eye drops 1 drp ophthalmic (eye) BID 08/21/23 07/31/24 05/07/24 History (Alphagan P) mometasone-formoterol HFA 200 1 puff inhalation BID 09/04/23 07/31/24 07/31/24 History mcg-5 mcg/actuation aerosol inhaler (Dulera) Exam Exam Date and Time: july [id number] Airway Mallampati Class: II TM Dist: >3cm Neck ROM: Full Heart: rrr Lungs: cta Assessment and Plan Final Anesthetic Review NPO: Yes ASA Class: III Final Preanesthetic Review: No Changes in Pt Med Stat, Meds/Allgs Chart Reviewed, Consent Obtained/Reviewed and Anes Risks/Benef Reviewed Patient Risk: Intermediate Procedure Risk: Low Anesthetic Plan Anesthetic Plan: MAC: Disposition: Standard PACU
[2024-07-31] VITALS (10 sets, daily range): BP systolic 82–114; BP diastolic 47–64; PULSE 64–98; RESP 16–18; TEMP 36.3–36.6; O2SAT 94–99
--- NOTE | ~2024-07-31 | XR_ITS ---
CLINICAL HISTORY: pre right ESWL Single view of the abdomen. COMPARISON: None FINDINGS: Double-J ureteral stent overlies the expected location of the right kidney and urinary bladder. No calcification identified along the course of the stent. Right total hip arthroplasty partially visualized. Normal bowel distention. Calcifications measuring 1.2, 0.7 and 1.1 cm overlie the expected location of the left renal shadow. Calcifications measuring 0.7 and 0.6 cm overlie the expected location of the left renal calculus No pneumoperitoneum identified. Mild stool burden. Moderate to advanced multilevel spondylosis. Dextrocurvature of the lumbar spine. No acute fracture identified. IMPRESSION: 1. Nonspecific nonobstructive bowel gas pattern. 2. Right double-J ureteral stent overlies the expected location of the right ureter. 3. Several calcifications overlie the renal shadows bilaterally measuring up to 1.2 cm on the left. These may represent renal calculi. This document has been electronically signed by: Terrence Beebe MD on 07/31/2024 14:28:12
[2024-07-31] MEDS: Lactated Ringers 500 ML 999 ML IV (09:14)
--- NOTE | 2024-07-31 09:41 | W.PM.OPN ---
Operative Note Operative Note Date of Service: 07/31/24 Narrative: PreOperative Diagnosis:? ? Right ureteral stone Post Operative Diagnosis:?Right ureteral stone Procedure:?1. Risht ESWL, 2. Cystoscopy right ureteral stent removal Surgeon:?Dr Kuldip Ibarra Anesthesia:? MAC Disposible Flexible Cystoscope Used Indications for procedure: The patient understands there is a risk of bruising or hematoma to the kidney, infection, and stone migration following the procedure and subsequent intervention may be required.? - Imaging 10 mm x 7 mm stone Procedure: After informed consent was verified the patient was brought to the operating room and placed in a supine position.? Anesthesia was performed per protocol. Safety pause time-out was performed. Imaging was displayed in the room and laterality confirmed. In preparation for cystoscopy, the genitalia was prepped, 2% lidocaine jelly was passed transurethrally, the disposable flexible cystoscope was passed into the bladder the stent was visualized using a grasper the stent was removed without difficulty. ESWL was then performed.?The stone was visualized on imaging.? Shockwave lithotripsy was performed, with a maximum rate of 120 hertz. After the first 300 shocks a pause for 3 minutes was completed.? A total of 3000 shocks to a maximum of power of 20 with a maximum rate of 120 hertz.? Some fragmentation of the stone was appreciated. The patient tolerated the procedure well and was transferred to the recovery area upon completion. Complications: None
--- NOTE | 2024-07-31 09:41 | MHC.SHP ---
Pre-Procedural Eval Section A - 24 Hr Update-Section A only Date of Service: 07/31/24 The patient is an INPATIENT: No The patient has been examined within 24 hours of the surgical procedure. The History & Physical has been completed within 30 days and I have reviewed it.: Yes Section B - Complete if H&P > 30 days Chief Complaint: Calculus of right kidney Allergies: Allergies Allergy/AdvReac Type Severity Reaction Status Date / Time gadobenic acid [Multihance] Allergy Severe Rash Verified 07/31/24 08:38 azithromycin Allergy Intermediate HIVES Verified 07/31/24 08:38 [From ZITHROMAX Z-JOYCE] Iodinated Contrast Media Allergy Intermediate HIVES Verified 07/31/24 08:38 [IV CONTRAST] Penicillins Allergy Mild RASH Verified 07/31/24 08:38 Plan Diagnosis/Plan: Unchanged I have reviewed the history and physical and performed a pertinent physical examination on my patient. No changes have occurred unless specified. Right ESWL, remove right ureteral stent. Discussed risks to include but not limited to, blood in the urine, bruising to the skin, kidney hematoma, possible need for another procedure if a stone fragment obstructs the ureter while passing, possible need to repeat procedure if stone is not completely fragmented. Time Spent With Patient Time: Total time managing care of this patient today ____ minutes.
== END 2024-07-31 13:41 | disposition home or self-care (01) ==
PROVIDERS: PCP Internal Medicine; Visit Provider Urology
PROC: (CPT 50590; principal; 2024-07-31 09:20)
DX: N20.1 Calculus of ureter (principal); Z96.0 Presence of urogenital implants; I25.10 Atherosclerotic heart disease of native coronary artery without angina pectoris; Z95.5 Presence of coronary angioplasty implant and graft; D86.9 Sarcoidosis, unspecified; N18.9 Chronic kidney disease, unspecified; N40.1 Benign prostatic hyperplasia with lower urinary tract symptoms; N13.30 Unspecified hydronephrosis; J45.909 Unspecified asthma, uncomplicated; I49.3 Ventricular premature depolarization; I47.20 Ventricular tachycardia, unspecified; R91.8 Other nonspecific abnormal finding of lung field; Z79.01 Long term (current) use of anticoagulants; Z79.899 Other long term (current) drug therapy; Z88.0 Allergy status to penicillin; Z88.1 Allergy status to other antibiotic agents; Z88.8 Allergy status to other drugs, medicaments and biological substances; Z91.041 Radiographic dye allergy status; Z98.890 Other specified postprocedural states; Z72.0 Tobacco use
CPT/HCPCS: 50590; 74018; 87086; J0131; J0696; J1938; J2003; J2371; J2704; J3010

== ENCOUNTER → 2024-07-31 07:28 | Outpatient (BNV) | payer MEDICARE, OTHER, SELFPAY | PROVIDERS: PCP Internal Medicine; Visit Provider Urology | DX: N20.1 Calculus of ureter (principal) | CPT/HCPCS: 50590; 52310 ==

== ENCOUNTER → 2024-07-31 07:45 | Outpatient (BNV) | payer MEDICARE, OTHER, SELFPAY | PROVIDERS: PCP Internal Medicine; Visit Provider Radiology Diagnostic Radiology | DX: N20.0 Calculus of kidney (principal) | CPT/HCPCS: 74018 ==

== ENCOUNTER 2024-08-06 09:26 | Outpatient (AMB) | payer MEDICARE, OTHER, SELFPAY ==
[2024-08-06 09:30] VITALS: BP 80/52; PULSE 68; BMI 27.7
--- NOTE | 2024-08-06 09:30 | A.OFFVIS_ITS ---
Vital Signs 08/06/24 09:30 Height 5 ft 10 in Weight 193 lb 1.999 oz BMI 27.7 BP 80/52 L Blood Pressure Location Rt brachial Position Sitting Pulse 68 Pulse Source Monitor Intake Visit Reasons: 3m follow up Account Supervisor Required: No Addictions Counselor Assistant: Addictions Counselor Assistant Present Allergies gadobenic acid [Multihance] Allergy (Severe, Verified 08/06/24 09:33) Rash azithromycin [From ZITHROMAX Z-JOYCE] Allergy (Intermediate, Verified 08/06/24 09:33) HIVES Iodinated Contrast Media [IV CONTRAST] Allergy (Intermediate, Verified 08/06/24 09:33) HIVES Penicillins Allergy (Mild, Verified 08/06/24 09:33) RASH Medication List - Last Reconciled 08/06/24 by KENIA EliasC allopurinol 100 mg PO DAILY apixaban (Eliquis) 5 mg PO BID atorvastatin 80 mg PO DAILY brimonidine 0.1% (Alphagan P) 1 drp ophthalmic (eye) BID cefuroxime axetil 250 mg PO BID 5 days dronedarone (Multaq) 400 mg PO Q12H 90 days finasteride 5 mg PO DAILY 90 days mometasone-formoterol 200-5 mcg/actuation (Dulera) 1 puff inhalation BID montelukast 10 mg PO DAILY@1200 potassium citrate ER 10 mEq PO BID 90 days tamsulosin 0.4 mg PO BEDTIME tiotropium bromide 2.5 mcg/actuation (Spiriva Respimat) 2 inhalations inhalation DAILY 90 days HPI HPI 3m follow up: Details: Erasmo is a 79-year-old male with past medical history of hyperlipidemia, CAD with LAD stent, PVCs, paroxysmal atrial fibrillation, currently suppressed with Multaq, nonischemic cardiomyopathy, aortic stenosis who presents for follow-up after recent echocardiogram. Today he reports that since her last visit he underwent a lithotripsy. reports that during the procedure he had runs of NSVT. He was monitored post procedure and noted to have PVCs. He has not been having any comfort from renal calculi or hematuria. No chest discomfort at rest or with activity. No shortness of breath, PND, orthopnea or edema. No heart palpitations, presyncope, syncope. He does have unsteadiness when he walks and uses a walker. His blood pressure runs low. states that he is up only about 6 hours per day and does drink at least 2 8 oz glasses of liquid during that time. Compliant with meds. [facility] Medical History (Updated 08/06/24 @ 10:05 by HENRY Elias) Pulmonary nodules Chronic restrictive lung disease Chronic renal disease Nonsustained ventricular tachycardia PVCs (premature ventricular contractions) CAD (coronary artery disease) Dyspnea Chronic allergic rhinitis Asthma Sarcoidosis Surgical History H/O hernia repair Stented coronary artery Family History Father Atrial fibrillation Mother Atrial fibrillation Other Asthma Social History Household Members: Spouse Housing: House Do you presently have visiting nurse or other home services: No Alcohol intake: never Patient Tobacco Use Status: Never used Tobacco Tobacco use type: Cigar e-Cigarette/Vaping Use: Never Used Second Hand Smoke Exposure: No Advance Directives Date on File: 09/14/23 service: No Review of Systems Const All systems reviewed & are unremarkable except as noted in HPI and below ENT Denies dizziness Card Denies chest pain, Denies chest pain at rest, Denies chest pain with activity, Denies rapid heart rate, Denies pedal edema, Denies edema, Denies leg edema, Denies lightheadedness, Denies palpitations, Denies dyspnea, Denies dyspnea on e xertion and Denies orthopnea Resp Denies cough, Denies dyspnea and Denies dyspnea on exertion GI Denies hematochezia and Denies change in stool character Musc Denies abnormal gait, Denies limited range of motion, Denies muscle cramps, Denies muscle weakness, Denies numbness, Denies radiating pain into limb, Denies stiffness and Denies tingling Neuro Denies abnormal gait, Denies dizziness, Denies numbness and Denies tingling Endo Denies palpitations Physical Exam Vital Signs: BMI result Body Mass Index 27.7 Const General: cooperative, healthy appearing, comfortable and no acute distress Orientation/consciousness: patient oriented x3 Neck Neck: Yes normal visual inspection Resp Effort & Inspection: normal respiratory effort Auscultation: clear to auscultation bilaterally, no rales, no rhonchi and no wheezes Cardio Rate: regular rate Rhythm: regular rhythm Heart sounds: S1 normal heart sound present, S2 normal heart sound present, no murmurs and no rubs Neuro General: patient oriented x3 Extrem General: Yes normal to inspection and No no pedal edema Psych Appearance: grossly normal Mental Status: mental status grossly normal Speech and movement: Normal speech and movement present Office Procedures EKG Details: Today, read by me, normal sinus rhythm, nonspecific ST abnormality, rate 68, QTC 465 milliseconds [id number], Complete Assessment & Plan Assessment & Plan (1) Cardiomyopathy: Code(s): I42.9 - Cardiomyopathy, unspecified Category: Medical Plan: History of nonischemic cardiomyopathy with prior EF 40-45%. History of CAD with prior LAD stent. Nuclear stress test done 03/27/2023 shows no clear ischemia or infarct. A cardiac MRI was done 04/28/2023 which did show EF 35%, no specific findings of infarct or infiltrative disease, moderate aortic stenosis. Last echo 06/11/2024 showing EF 40-45%, paradoxical low-flow moderate aortic stenosis, impaired relaxation. His blood pressure runs low, also history of CKD and he has not been on neurohormonal modulation for this reason. He does not appear fluid overloaded on examination. Signs and symptoms of heart failure reviewed with him. (2) Paroxysmal atrial flutter: Code(s): I48.92 - Unspecified atrial flutter Category: Medical Plan: History of paroxysmal atrial fibrillation which is currently suppressed with Multaq. EKG done today showing sinus rhythm, rate 68, QTC 465 millisecond. He is on Eliquis for anticoagulation. Labs done 06/18/2024 shows creatinine 1.53. Eliquis dose of 5 mg b.i.d. is still appropriate for his age and weight. Office EKG in 3 months. (3) CAD (coronary artery disease): Code(s): I25.10 - Atherosclerotic heart disease of [place] coronary artery without angina pectoris Category: Medical Plan: History of CAD with LAD stent. Last nuclear stress test as above showing no infarct or ischemia. No anginal symptoms. Continue med management. He is not on aspirin as he is on Eliquis. He is on atorvastatin with ideal LDL goal less than 70. Labs done 03/01/2024 showed LDL 60. (4) Aortic stenosis: Code(s): I35.0 - Nonrheumatic aortic (valve) stenosis Category: Medical Plan: Echocardiogram 12/2022 showed mild aortic stenosis. Cardiac MRI 04/28/2023 showed moderate aortic stenosis. Echo done 06/11/2024 shows paradoxical low-flow moderate aortic stenosis with mean gradient 11 mmHg and aortic valve area 1.28 centimeter sq. Heart tones distant and no significant murmur on examination. (5) Nonsustained ventricular tachycardia: Code(s): I47.2 - Ventricular tachycardia Category: Medical Plan: Lithotripsy anesthesia notes reviewed. There is a comment that patient had sustained VT for 2 full screens prior to spontaneous breaking. confirmed he did take Multaq that warning. He has been on Multaq without interruption. EKG done today showing normal sinus rhythm with nonspecific T-wave abnormalities, rate 68, QTC 465 milliseconds. Will check Holter to assess for any recurrent NSVT. His episode may have been related to the actual lithotripsy procedure. Cardiology follow-up 3 months, sooner if needed Plan Time spent on chart review, documentation, interview, assessment Orders: Orders ECG 3 day holter monitor Today I47.2 - Ventricular tachycardia, I48.92 - Unspecified atrial flutter Coding Level of Care Code Est Pt Level 4 (93677) Complex EM visit Add On G2211 Diagnoses Cardiomyopathy I42.9 Paroxysmal atrial flutter I48.92 CAD (coronary artery disease) I25.10 Aortic stenosis I35.0 Nonsustained ventricular tachycardia I47.2 CPT Codes EKG - CPT: 69254-[id number], Complete ([id number]) Time Spent (min) 28
--- OUTSIDE RECORDS SUMMARY | 2024-08-06 10:20 | XMS_ITS ---
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 Name Role Phone Moris Yu Primary Care Provider REASON FOR VISIT UGI orders Encounters Encounter Location Date Provider Diagnosis Moris Yu MD [address] [place] [address] [place] [id number] 04/05/2024 Moris Yu Abnormal computed tomography of abdomen and pelvis R93.5 Assessments Encounter Date Diagnosis (ICD Code) Assessment Notes Treatment Notes Treatment Clinical Notes Section Notes 04/05/2024 Abnormal computed tomography of abdomen and pelvis (ICD-10 - R93.5) Plan Of Treatment Pending Test Test Name Order Date XR GI SERIES 04/05/2024 Next Appt Details Provider Name:Moris delgadillo, 09/06/2024 08:00:00 AM, [address] [place] [address], [address], [phone], Provider Name:Moris delgadillo, 09/13/2024 02:00:00 PM, [address] [place] [address], [address], [phone], Provider Name:Moris delgadillo, 03/06/2025 08:00:00 AM, [address] [place] [address], [address], [phone], Provider Name:Moris delgadillo, 03/13/2025 02:30:00 PM, [address] [place] [address], [address], [phone], Progress Notes * Erasmo QUEVEDOOB: 6 (78 yo M)Acc No.[id number]:04/05/2024 Patient:?Erasmo QUEVEDO :1945???Age:78 Y???Sex:Male Address:[address] [address] Subjective: * Chief Complaints: * ???UGI orders * Medical History:? * Surgical History:? * Hospitalization/Major Diagno stic Procedure:? * Medications:? Objective: * Vitals:? * Physical Examination:? Assessment: * Assessment: 1.?Abnormal computed tomogra phy of abdomen and pelvis - R93.5??? Plan: * Treatment: * Procedure Codes:? * true * Date:? Generated for Marie vázquez/Jacob/eTransmitting on:?08/06/2024 10:19 AM EDT
== END 2024-08-06 10:02 | disposition home or self-care (01) ==
LOC: HO.HCS 09:26
PROVIDERS: PCP Internal Medicine; Visit Provider Nurse Practitioner Family
DX: I42.9 Cardiomyopathy, unspecified (principal); I48.92 Unspecified atrial flutter; I25.10 Atherosclerotic heart disease of native coronary artery without angina pectoris; I35.0 Nonrheumatic aortic (valve) stenosis; I47.20 Ventricular tachycardia, unspecified
CPT/HCPCS: 93010; 99214; G2211

== ENCOUNTER → 2024-08-06 09:26 | Outpatient (BNVA) | payer MEDICARE, OTHER, SELFPAY | PROVIDERS: PCP Internal Medicine; Visit Provider Nurse Practitioner Family | DX: I42.9 Cardiomyopathy, unspecified (principal); I48.92 Unspecified atrial flutter; I25.10 Atherosclerotic heart disease of native coronary artery without angina pectoris; I35.0 Nonrheumatic aortic (valve) stenosis; I47.29 Other ventricular tachycardia; R94.31 Abnormal electrocardiogram [ECG] [EKG] | CPT/HCPCS: 93005; 99212 ==

== ENCOUNTER → 2024-08-27 14:56 | Outpatient (REF) | payer MEDICARE, OTHER, SELFPAY ==
--- OUTSIDE RECORDS SUMMARY | 2024-04-05 06:15 | XMS_ITS ---
Author Organization Moris Yu MD Address [address] [place] [phone] Care Team Providers Care Care Transitions Manager Name Role Phone Moris Yu Primary Care Provider REASON FOR VISIT UGI orders Encounters Encounter Location Date Provider Diagnosis Moris Yu MD [address] [place] [address] [place] [address] [phone] 04/05/2024 Moris Yu Abnormal computed tomography of abdomen and pelvis R93.5 Assessments Encounter Date Diagnosis (ICD Code) Assessment Notes Treatment Notes Treatment Clinical Notes Section Notes 04/05/2024 Abnormal computed tomography of abdomen and pelvis (ICD-10 - R93.5) Plan Of Treatment Pending Test Test Name Order Date XR GI SERIES 04/05/2024 Next Appt Details Provider Name:Moris delgadillo, 09/06/2024 08:00:00 AM, [address] [place] [address], [address], [phone], Provider Name:Moris delgadillo, 09/13/2024 02:00:00 PM, [address] [place] [address], [address], [phone], Provider Name:Moris delgadillo, 03/06/2025 08:00:00 AM, [address] [place] [address], [address], [phone], Provider Name:Moris delgadillo, 03/13/2025 02:30:00 PM, [address] [place] [address], [address], [phone], Progress Notes * Erasmo QUEVEDOOB: 6 (78 yo M)Acc No.[id number]:04/05/2024 Patient: Erasmo JUAREZ :1945 A ge:78 Y S ex:Male Address:[place] [address] [place] [phone] Subjective: * Chief Complaints: * U GI orders * Medical History: * Surgical History: * Hospitalization/Major Diagno stic Procedure: * Medications: Objective: * Vitals: * Physical Examination: Assessment: * Assessment: 1. A bnormal computed tomography of abdomen and pelvis - R93.5 Plan: * Treatment: * Procedure Codes: * true * Date: Generated for Marie vázquez/Jacob/Tuckeritting on: 0 08/27/2024 03:51 PM EDT
--- NOTE | 2024-08-27 14:58 | HM_ITS ---
* Total monitoring time 3 days. * Underlying rhythm is sinus with an average rate of 59/Min. About 58% of the time, rate < 60/Min. * Frequent ventricular ectopy with a burden of 10%. Evidence of bigeminy, trigeminy. Rare couplets/triplets. Very short runs. Up to 4 beats. Multiple morphologies. * Rare supraventricular ectopy. * No significant pauses or high-grade AV blocks. * Patient markers used with ventricular ectopy. * Nausea, dizziness/lightheadedness correlates with ventricular ectopy/bigeminy. MTDD
--- OUTSIDE RECORDS SUMMARY | 2024-08-27 15:50 | XMS_ITS | Continuity of Care Document ---
Author Name [facility] Organization [facility] Care Team Providers Care Therapy Teacher Name Role Phone [facility] Unavailable Unavailable Medications Combined list of outpatient medications from Department of Defense and Veterans Affairs facilities.Medications provided include 1) outpatient medications from the last 15 months, and 2) patient-reported medications. Medication Details Route Status Patient Instructions Prescription Expires Prescription Number Last Dispense Date Ordering Provider Order Date Order Qty Source ALLOPURINOL (ALLOPURINO L), 100MG, TABLET, ORAL, 'S LAB, 1000 ea. BOTTLE Active [id number] 4 2023 90 Pharmac y Data Transac tion Service Facilit y AMOX TR-POTASSIU M CLAVULANATE (AMOXICILLI N/POTASSIUM CLAV), 875-125 MG, TABLET, ORAL, A[facility]OBINDO PH[facility], 20 ea. BOTTLE Active [id number] 4 2023 14 Pharmac y Data Transac tion Service Facilit y ELIQUIS (APIXABAN), 5 MG, TABLET, ORAL, [facility] , 60 ea. BOTTLE Active [id number] 4 2023 180 Pharmac y Data Transac tion Service Facilit y ELIQUIS (APIXABAN), 5 MG, TABLET, ORAL, BMS PRIMARYCARE , 60 ea. BOTTLE Active [id number] 4 2023 180 Pharmac y Data Transac tion Service Facilit y MULTAQ (DRONEDARON E HYDROCHLORI DE), 400 MG, TABLET, ORAL, SANOFI-AVEN TIS, 60 ea. BOTTLE Active [id number] 4 2023 180 Pharmac y Data Transac tion Service Facilit y POTASSIUM CITRATE (POTASSIUM CITRATE), 10MEQ, TABLET SA, ORAL, MANISH PICKERING, 100 ea. BOTTLE Active [id number] 4 2023 200 Pharmac y Data Transac tion Service Facilit y POTASSIUM CITRATE (POTASSIUM CITRATE), 10MEQ, TABLET SA, ORAL, MANISH PICKERING, 100 ea. BOTTLE Active [id number] 4 2023 200 Pharmac y Data Transac tion Service Facilit y Immunizations Combined list of available immunizations from the Department of Defense and Veterans Affairs facilities. Immunization Series Date Given Administered By Site Reaction Lot Number CVX Code Drug Tobacco Sorter Status Comments Source Tdap 2019 BOGDASARIAN, () Not Given Tdap [facility] Influenza, injectable, MDCK, quadrivalent, preservative 2018 ANNABEL,D () Not Given Influenza , injectabl e, MDCK, quadrival ent, preservat mele [facility] zoster recombinant 2018 ANNABEL,D () Not Given zoster recombina nt [facility] Influenza, seasonal, injectable 2014 ANNABEL,D () Not Given Influenza , seasonal, injectabl e DoD Social History Combined list of available smoking, tobacco, and other social history from Department of Defense and Veterans Affairs facilities. Social History Type Response Date Comment Sour e This section is an empty social history section. DoD
--- OUTSIDE RECORDS SUMMARY | 2024-08-27 15:51 | XMS_ITS | Patient Health Record ---
Author Organization [facility] Address [address] [place] [address] Care Team Providers Care Pulmonary Specialist Name Role Phone Moris Yu MD Primary Care Provider Jose Cruz Hahn [phone] Allergies Allergen (clinical drug ingredient) Drug/Non Drug Allergy documented on EMR Reaction Allergy Type Onset Date Status doxycycline Doxycycline Unknown Drug Allergy Act mele Penicillin Unknown Drug Allergy Active azithromycin Zithromax Z-Jhonny Unknown Drug Allergy Active MRI contranst (uncoded) Unknown Allergy Active Reason For Referral No Information Medications Medication SIG (Take, Route, Frequency, Duration) Notes Start Date End Date Status Allopurinol 100mg 1 tablet Orally Once a day Active Spiriva Respimat 2.5 MCG/ACT 2 puffs Inhalation Once a day Active TheraLith XR 1 4 Orally daily Active Dymista 137-50 MCG/ACT 1 puff in each no stril Nasally prn Active Atorvastatin Calcium 80 MG 1 tablet Oral ly Once a day Active Naproxen Sodium 220 MG 2-3 tablets Orall y every 12 hrs/prn Active PriLOSEC 20 MG 1 capsule Orally Onc e a day for 30 day(s) Active Bisoprolol Fumarate 5 MG 1 tablet Orally Once a day Active Budesonide 0.5 MG/2ML 2 ml Inhalation On ce a day Active Singulair 10mg 1 tablet Orally Once a day Active Dulera 100-5 MCG/ACT 2 puffs Inhalation Twice a day Active Albuterol Sulfate (2.5 MG/3ML) 0.083% 3 ml as needed Inhalation Twice a day Active Aspir-81 81 MG 1 tablet Orally Once a day Active Immunizations Vaccine Route Administration Date Status Comme nts Influenza Unknown 01/03/2018 Administered Problems Problem Type SNOMED Code ICD Code Onset Dates Problem Status W/U Status Risk Notes Problem 028294168 Encounter for screening for malignant neoplasm of colon (Z12.11) Active confirmed Problem 272859041 Anemia in other chronic diseases classified elsewhere (D63.8) Active confirmed Problem 19964611 Other fatigue (R53.83) Active confirmed Problem 808003688295065 Preprocedural examination (Z01.818) Active confirmed Problem 191243527677059 Aspirin long-ter m use (Z79.82) Active confirmed Problem 768137829 Hx of adenomatou s colonic polyps (Z86.010) Active confirmed Problem 46221764 Diarrhea, unspecified type (R19.7) Active confirmed Plan Of Treatment Future Test Test Name Order Date UPPER GI ENDOSCOPY 04/23/2013 COLONOSCOPY 04/23/2013 COLONOSCOPY 07/27/2018 Insurance Providers Payer Name Payer Address Payer Phone Subscriber Number Group Number Insured Name Patient Relationship to Insured Coverage Start Date Coverage End Date MEDICARE OF [place] [address] [place] [address] [phone] [id number] ALMA LAGOS Self - patient is the insured [employer] [address] [place] [address] [phone] [id number] ALMA LAGOS Self - patient is the insured Medical (General) History Medical History History ICD Code Colonoscopy 05-12-2006--2 sma ll tubular adenomas removed--also noted was diverticulosis and internal hemorrhoids; colonoscopy in 04/2013 with small ascending colon tubular adenomas removed Sarcoidosis-s/p scalene node bx Back pain-herniated disks--on Naproxen Asthma Kidney stones GERD--EGD in 2013 with an es ophageal ring that was dilated--no esophagitis nor Simmons's, small hiatal hernia Denies UT,DM,CVA,Renal disease Coronary artery disease--2 s tents placed in 08/2014--no UT--has tanner--Dr. Hopper COPD EGD--04/2013--esophageal ring was dilated with an 18mm balloon--no esophagitis, small hiatal hernia Colonoscopy--04/2013--small t ubular adenomas, diverticulosis, internal hemorrhoids Surgical History Surgery Date(Month/Year) Scalene node bx Hand surgery-right Hernia repair Basal cell cancer removal
--- OUTSIDE RECORDS SUMMARY | 2024-08-27 15:51 | XMS_ITS ---
Author Name [facility] Organization Unknown History of Medication Use Medication Directions Dispensed Refills Start Date End Date Stat amoxicillin 875 mg-potassium clavulanate 125 mg tablet TAKE 1 TABLET BY MOUTH EVERY 12 HOURS FOR 10 DAYS active atorvastatin 80 mg tablet active azelastine-fluticason e 137 mcg-50 mcg/spray nasal spray act mele bisoprolol fumarate 5 mg tablet active clindamycin HCl 150 mg capsule active escitalopram 10 mg tablet active montelukast 10 mg tablet active Encounters Encounter Type Encounter Reason Primary Diagnosis Location Date Ambulatory [facility] [place] 09/22/2022 Ambulatory [facility] [place] 09/12/2022
--- OUTSIDE RECORDS SUMMARY | 2024-08-27 15:52 | XMS_ITS | Clinical Summary ---
Author Organization [facility] Address [address] [place] [address] Phone Care Team Providers Care Jewelry Bearing Maker Name Role Phone Moris Yu MD Primary [...] age to complete this topic Insurance Medicare [facility] Medicare [facility] Care Teams Jewelry Bearing Maker Relationship Specialty Start Date End Date Moris Yu MD [address] [place] [address] PCP - General Internal Medicine 08/14/20
--- OUTSIDE RECORDS SUMMARY | 2024-08-27 15:52 | XMS_ITS | Clinical Summary ---
Author Organization [facility] Address [address] [place] [address] Care Team Providers Care Correctional Medicine Physician Name Role Phone Moris Yu MD Primary [...] mg by nebulization daily. 0 Active Tiotropium [place] Monohydrate (SPIRIVA RESPIMAT) 2.5 MCG/ACT AERS Inhale [...] 63 08/30/2019 8:28 AM EDT Temperature 36.9 C (98.4 F) 08/30/2019 8:28 AM EDT Respiratory Rate 15 08/30/2019 8:28 AM EDT [...] - 1-dose 75+ series) 2020 Influenza Vaccine (Season Ended) 2024 Hepatitis B Vaccines Aged Out No long er eligible based on patient's age to complete this topic RSV Ped < 20 months Aged Out No longe r eligible based on patient's age to complete this topic Medical Devices Implanted Type Area Benzene Still Utility Operator Device Identifier Shelf Expiration Date Model / Serial / Lot Shell Trident Ii F 58mm 5 Screw Hole Cluster Tritanium - [id number] - [id number] Implanted:Qty: 1 on 08/29/2019 by Ron Sanchez [place] [facility] Right: Hip [employer] [id number] 12/24/2023 702-04-58F / / [id number] Screw Trident Ii 30mm 6.5mm Low Profile Hexagonal Bone - [id number] - [id number] Implanted:Qty: 1 on 08/29/2019 by Ron Sanchez MD [place] [facility] Right: Hip [employer] [id number] 01/08/2024 7382-3381 / / 33TH Insert Trident 10d F 36mm X3 Acetabular Hip - [id number] - [id number] Implanted:Qty: 1 on 08/29/2019 by Ron Sanchez MD [place] [facility] Right: Hip [employer] [id number] 01/14/2024 623-10-36F / / [id number] Screw Trident Ii 30mm 6.5mm Low Profile Hexagonal Bone - [id number] - [id number] Implanted:Qty: 1 on 08/29/2019 by Ron Sanchez MD [place] [facility] Right: Hip [employer] [id number] 12/10/2023 2831-9649 / / [id number] Stem Hip Neck Angle 127 Degree Accolade Ii Sz6 - [id number] - [id number] Implanted:Qty: 1 on 08/29/2019 by Ron Sanchez MD [place] [facility] Right: Hip [employer] [id number] 10/04/2022 3640-9281 / / [id number] Head V40 -5mm 36mm Delta Femoral Hip - [id number] - [id number] Implanted:Qty: 1 on 08/29/2019 by Ron Sanchez MD [place] [facility] Right: Hip [employer] [id number] 07/31/2024 6570-0-036 / / [id number] Advance Directives For more information, please contact: [phone] Latest Code Status on File Code Status [...] way: discussion with patient . Care Teams Correctional Medicine Physician Relationship Specialty Start Date End Date Moris Yu MD [address] [place] [address] PCP - General Internal Medicine 06/26/19
--- OUTSIDE RECORDS SUMMARY | 2024-08-27 15:52 | XMS_ITS | Clinical Summary ---
Author Organization [facility] it Address [address] [place] [address] Care Team Providers Care Meter/Relay Craftsman Name Role Phone Moris Yu MD Primary [...] Asthma 11/08/2016 DX:Asthma Interstitial lung disease ([facility] V24, [facility] V28) 11/08/2016 DX:Interstitial lung disease (HCC) Pulmonary sarcoidosis ([facility] V24) 11/24/2016 DX:Pulmonary sarcoidosis (HCC) Seasonal allergic rhinitis 11/24/2016 DX:Se asonal allergic rhinitis Nephrolithiasis 03/17/2017 DX:Nephrolithias is; COMMENT: 06/29/2015 Hyperlipidemia 04/20/2017 DX:Hyperlipidemi a Asthma DX:Asthma Hypertension DX:Hypertension Kidney damage DX:Kidney damage Osteoarthritis DX:Osteoarthriti s Sarcoidosis, lung ([facility] V24) DX:Sarcoidosis, lung (HCC) PVC (premature ventricular [...] this topic Medical Devices Implanted Type Area Upholstery Sewer Device Identifier Shelf Expiration Date Model / Serial / Lot Shell Trident Ii F 58mm 5 Screw Hole Cluster Tritanium - [id number] Implanted:Qty: 1 on 08/29/2019 by Ron Sanchez MD Right: Hip [employer] [id number] 12/24/2023 702-04-58F / / [id number] Screw Trident Ii 30mm 6.5mm Low Profile Hexagonal Bone - [id number] Implanted:Qty: 1 on 08/29/2019 by Ron Sanchez MD Right: Hip [employer] [id number] 01/08/2024 4881-5788 / / 33TH Insert Trident 10d F 36mm X3 Acetabular Hip - [id number] Implanted:Qty: 1 on 08/29/2019 by Ron Sanchez MD Right: Hip [employer] [id number] 01/14/2024 623-10-36F / / [id number] Screw Trident Ii 30mm 6.5mm Low Profile Hexagonal Bone - [id number] Implanted:Qty: 1 on 08/29/2019 by Ron Sanchez MD Right: Hip [employer] [id number] 12/10/2023 8785-2401 / / 3HYD Stem Hip Neck Angle 127 Degree Accolade Ii Sz6 - [id number] Implanted:Qty: 1 on 08/29/2019 by Ron Sanchez MD Right: Hip [employer] [id number] 10/04/2022 5318-0865 / / [id number] Head V40 -5mm 36mm Delta Femoral Hip - [id number] Implanted:Qty: 1 on 08/29/2019 by Ron Sanchez MD Right: Hip [employer] [id number] 07/31/2024 6570-0-036 / / [id number] Care Teams Meter/Relay Craftsman Relationship Specialty Start Date End Date Moris Yu MD PCP - General Internal Medicine 01/24/17
== END ==
LOC: HO.CARD 14:56
PROVIDERS: PCP Internal Medicine; Visit Provider Nurse Practitioner Family
DX: I47.20 Ventricular tachycardia, unspecified (principal); I48.92 Unspecified atrial flutter
CPT/HCPCS: 93242

== ENCOUNTER → 2024-08-27 14:58 | Outpatient (BNV) | payer MEDICARE, OTHER, SELFPAY | PROVIDERS: PCP Internal Medicine; Visit Provider Internal Medicine | DX: I49.3 Ventricular premature depolarization (principal); I47.10 Supraventricular tachycardia, unspecified | CPT/HCPCS: 93244 ==

== ENCOUNTER 2024-09-09 10:47 | Outpatient (REF) | payer MEDICARE, OTHER, SELFPAY ==
--- OUTSIDE RECORDS SUMMARY | 2024-04-05 06:15 | XMS_ITS ---
Author Organization Moris Yu MD Address [address] [place] [phone] Care Team Providers Care Junior Sales Representative Name Role Phone Moris Yu Primary Care Provider REASON FOR VISIT UGI orders Encounters Encounter Location Date Provider Diagnosis Moris Yu MD [address] [place] [address] [place] [phone] 04/05/2024 Moris Yu Abnormal computed tomography of abdomen and pelvis R93.5 Assessments Encounter Date Diagnosis (ICD Code) Assessment Notes Treatment Notes Treatment Clinical Notes Section Notes 04/05/2024 Abnormal computed tomography of abdomen and pelvis (ICD-10 - R93.5) Plan Of Treatment Pending Test Test Name Order Date XR GI SERIES 04/05/2024 Next Appt Details Provider Name:Moris delgadillo, 09/13/2024 02:00:00 PM, [address] [place] [address], [address], [phone], Provider Name:Moris delgadillo, 03/06/2025 08:00:00 AM, [address] [place] [address], [address], [phone], Provider Name:Moris delgadillo, 03/13/2025 02:30:00 PM, [address] [place] [address], [address], [phone], Progress Notes * Erasmo QUEVEDO BDOB: 6 (78 yo M)Acc No.[id number]:04/05/2024 Patient: Erasmo JUAREZ :1945 A ge:78 Y S ex:Male Address:[facility] [address] [place] [address] Subjective: * Chief Complaints: * U GI orders * Medical History: * Surgical History: * Hospitalization/Major Diagno stic Procedure: * Medications: Objective: * Vitals: * Physical Examination: Assessment: * Assessment: 1. A bnormal computed tomography of abdomen and pelvis - R93.5 Plan: * Treatment: * Procedure Codes: * true * Date: Generated for Marie vázquez/Jacob/Susansmitting on: 0 09/09/2024 11:41 AM EDT
--- OUTSIDE RECORDS SUMMARY | 2024-09-09 11:40 | XMS_ITS | Continuity of Care Document ---
Author Name [facility] Organization [facility] Care Team Providers Care Casino Assistant Manager Name Role Phone [facility] Unavailable Unavailable Medications Combined list of outpatient medications from Department of Defense and Veterans Affairs facilities.Medications provided include 1) outpatient medications from the last 15 months, and 2) patient-reported medications. Medication Details Route Status Patient Instructions Prescription Expires Prescription Number Last Dispense Date Ordering Provider Order Date Order Qty Source ALLOPURINOL (ALLOPURINO L), 100MG, TABLET, ORAL, 'S LAB, 1000 ea. BOTTLE Active [id number] 4 2023 90 Pharmac y Data Transac tion Service Facilit y AMOX TR-POTASSIU M CLAVULANATE (AMOXICILLI N/POTASSIUM CLAV), 875-125 MG, TABLET, ORAL, AUROBINDO PHARM, 20 ea. BOTTLE Active [id number] 4 2023 14 Pharmac y Data Transac tion Service Facilit y MULTAQ (DRONEDARON E HYDROCHLORI DE), 400 MG, TABLET, ORAL, SANOFI-AVEN TIS, 60 ea. BOTTLE Active [id number] 4 2023 180 Pharmac y Data Transac tion Service Facilit y Immunizations Combined list of available immunizations from the Department of Defense and Veterans Affairs facilities. Immunization Series Date Given Administered By Site Reaction Lot Number CVX Code Drug Manager Erp Status Comments Source Tdap 2019 BOGDASARIAN, () [...]
--- OUTSIDE RECORDS SUMMARY | 2024-09-09 11:42 | XMS_ITS | Clinical Summary ---
Author Organization [facility] Address [address] [place] [address] Phone Care Team Providers Care Used Equipment Sales Representative Name Role Phone Moris Yu MD Primary [...] - PCV) 11/24/2017 11/24/2016 Influenza Vaccine (#1) 2024 Hepatitis B Vaccine Aged Out No longe r eligible based on patient's age to complete this topic Insurance Medicare [facility] Medicare [facility] Care Teams Used Equipment Sales Representative Relationship Specialty Start Date End Date Moris Yu MD [address] [place] [address] PCP - General Internal Medicine 08/14/20
--- OUTSIDE RECORDS SUMMARY | 2024-09-09 11:42 | XMS_ITS | Data Portability ---
Author Organization [facility] [place] Address [address] [place] [address] Care Team Providers Care Keeper Helper Name Role Phone CHRISTIAN WEBB Primary Care [...] findings at length with the patient today. We discussed the nature and etiology of this problem along with current treatment options. We discussed the expected course and outcomes and what to expect. We also discussed risks and benefits. All of their questions were answered today, and there was exhibited understanding and comprehension of all that was discussed. Time Spent: 10 minutes were spent reviewing previous imaging and charting. 10 minutes were spent obtaining patient history. 5 minutes were spent on physical exam. 5minutes were spent explaining diagnosis and assessment. Today's [...] view 023 09/23/19 23 [email or web address] [facility], [address], [place], [address], 16:12:07 Medication Orders None record ed. Patient TargetsNo targets recorded. Patient Instructions Encounter Date Encounter Id Patient Instructions Last Modified By Organization Details Last Modified Time 09/22/2022 [id number] three-view x-ray of the right hip reveals well-seated well-positioned total hip arthroplasty without sign of loosening. Not available 09/22/2022 13:42:30 Reason for Referral None Reported. Procedures Surgical History Date Name Laterality Status Provider Name and Address Organization Details Recorded Time total replacement of hip completed Marylou Crittenden [facility], 09/22/2022 15:39:52 Imaging Results None recorded. Procedure [...] mg-100 mg tablets in a dose pack (Moderate Renal Dose) TAKE 2 TABLETS BY MOUTH TWICE A DAY FOR 5 DAYS 09/22 completed Not Available Not Available Not Available Vitals Date Recorded Body height Body mass index (BMI) Body weight Provider Name and Address Organization Details Last Updated DateTime 09/22/2022 154.94 cm 43.5 kg/m2 200414.[address] [facility], 09/22/2022 14:14:14 Social History None recorded. Functional Status Question Answer Note LastModified by Organizat ion Details LastModified Time Do you use any illicit or recreational drugs? No Information not available 09/22/2022 Do you or have you ever used any other forms of tobacco or nicotine? No Information not available 09/22/2022 What is your level of alcohol consumption? None Information not available 09/22/2022 Mental Status None recorded. Family History Nothing Reported. Medical History Condition Response Heart Disease Y Hypertension Y Asthma Y Kidney Disease Y Past Encounters Encounter ID Performer Location Encounter Start Date Encounter Closed Date Diagnosis/Indication Diagnosis SNOMED-CT Code Diagnosis ICD10 Code Diagnosis Note [id number] [address] [address] 09/22/2022 13:17:45 09/22/2022 13:52:32 History of total replacement of right hip joint [id number] 83906 Z96.641 Health Concerns Section Related Observation LastModified by Organization Detai ls LastModified Time None Recorded Concern Status LastModified by Organization Details LastModified Time None Recorded Advance Directives Directive None Recorded Payers Insurance Date Sequence Insurance Name Policy Number Policy Grijalva Covered Member ID Grijalva Member ID Guarantor Name 09/12/2022 1 [place]ICARE [place]: [employer] Erasmo Quevedo [id number] Erasmo Quevedo 09/26/2022 2 FOR LIFE ( - MEDICARE SUPPLEMENT) Erasmo Quevedo [id number] Erasmo Quevedo Notes Date Note Type Note Provider Name and Address Organization Details Recorded Time 09/22/2022 text/html R hip. R-DEE 09/18/19. xrays today. 77-year-old male history of right total hip arthroplasty 09/18/[address] Sanchez. Here for annual follow-up. States intermittent discomfort however doing well. He does do stretching exercises. He also takes his antibiotic prophylaxis prior to dental work. COREEN SIMS PA-C [address] [place] [address], [place], [address], [place] [facility], P 09/22/2022 13:52:09
--- OUTSIDE RECORDS SUMMARY | 2024-09-09 11:42 | XMS_ITS | Patient Health Record ---
Author Organization [facility] Address [address] [place] [address] Care Team Providers Care Data Operations Manager Name Role Phone Moris Yu MD Primary Care Provider Jose Cruz Hahn [phone] Allergies Allergen (clinical drug ingredient) Drug/Non Drug [...] Problem Status W/U Status Risk Notes Problem 224169061 Encounter for screening for malignant neoplasm of colon (Z12.11) Active confirmed Problem 564823309 Anemia in other chronic diseases classified elsewhere (D63.8) Active confirmed Problem 61025358 Other fatigue (R53.83) Active confirmed Problem 942901496029719 Preprocedural examination (Z01.818) Active confirmed Problem 043136016501094 Aspirin long-ter m use (Z79.82) Active confirmed Problem 976601847 Hx of adenomatou s colonic polyps (Z86.010) Active confirmed Problem 93119428 Diarrhea, unspecified type (R19.7) Active confirmed Plan Of Treatment Future Test Test Name Order Date UPPER GI ENDOSCOPY 04/23/2013 COLONOSCOPY 04/23/2013 COLONOSCOPY 07/27/2018 Insurance Providers Payer Name Payer Address Payer Phone Subscriber Number Group Number Insured Name Patient Relationship to Insured Coverage Start Date Coverage End Date MEDICARE OF [place] [address] [place] [address] [phone] [id number] ALMA LAGOS Self - patient is the insured [employer] [address] [place] [id number] ALMA LAGOS Self - patient is the [...] esophagitis nor Simmons's, small hiatal hernia Denies SD,DM,CVA,Renal disease Coronary artery disease--2 s tents placed in 08/2014--no SD--has tanner--Dr. Hopper COPD EGD--04/2013--esophageal ring was dilated with an 18mm balloon--no esophagitis, small hiatal hernia Colonoscopy--04/2013--small t ubular adenomas, diverticulosis, internal hemorrhoids Surgical History Surgery Date(Month/Year) Scalene node bx Hand surgery-right Hernia repair Basal cell cancer removal
--- OUTSIDE RECORDS SUMMARY | 2024-09-09 11:42 | XMS_ITS | Clinical Summary ---
Author Organization [facility] it Address [address] [place] [address] Care Team Providers Care Instruction Dean Name Role Phone Moris Yu MD Primary [...] Asthma 11/08/2016 DX:Asthma Interstitial lung disease ([facility] V24, [facility] V28) 11/08/2016 DX:Interstitial lung disease (HCC) Pulmonary sarcoidosis ([facility] V24) 11/24/2016 DX:Pulmonary sarcoidosis (HCC) Seasonal allergic rhinitis 11/24/2016 DX:Se asonal allergic rhinitis Nephrolithiasis 03/17/2017 DX:Nephrolithias is; COMMENT: 06/29/2015 Hyperlipidemia 04/20/2017 DX:Hyperlipidemi a Asthma DX:Asthma Hypertension DX:Hypertension Kidney damage DX:Kidney damage Osteoarthritis DX:Osteoarthriti s Sarcoidosis, lung ([facility] V24) DX:Sarcoidosis, lung (HCC) PVC (premature [...] 2023-2 5 season) 2023 Influenza Vaccine (#1) 2024 HIB Vaccines Aged Out No longer [...] this topic Medical Devices Implanted Type Area Transportation Planner Device Identifier Shelf Expiration Date Model / Serial / Lot Shell Trident Ii F 58mm 5 Screw Hole Cluster Tritanium - [id number] Implanted:Qty: 1 on 08/29/2019 by Ron Sanchez MD Right: Hip [employer] [id number] 12/24/2023 702-04-58F / / [id number] Screw Trident Ii 30mm 6.5mm Low Profile Hexagonal Bone - [id number] Implanted:Qty: 1 on 08/29/2019 by Ron Sanchez MD Right: Hip [employer] [id number] 01/08/2024 4574-4546 / / 33TH Insert Trident 10d F 36mm X3 Acetabular Hip - [id number] Implanted:Qty: 1 on 08/29/2019 by Ron Sanchez MD Right: Hip [employer] [id number] 01/14/2024 623-10-36F / / [id number] Screw Trident Ii 30mm 6.5mm Low Profile Hexagonal Bone - [id number] Implanted:Qty: 1 on 08/29/2019 by Ron Sanchez MD Right: Hip [employer] [id number] 12/10/2023 8702-3291 / / [id number] Stem Hip Neck Angle 127 Degree Accolade Ii Sz6 - [id number] Implanted:Qty: 1 on 08/29/2019 by Ron Sanchez MD Right: Hip [employer] [id number] 10/04/2022 2607-5599 / / [id number] Head V40 -5mm 36mm Delta Femoral Hip - [id number] Implanted:Qty: 1 on 08/29/2019 by Ron Sanchez MD Right: Hip [employer] [id number] 07/31/2024 6570-0-036 / / [id number] Care Teams Instruction Dean Relationship Specialty Start Date End Date Moris Yu MD PCP - General Internal Medicine 01/24/17
--- OUTSIDE RECORDS SUMMARY | 2024-09-09 11:43 | XMS_ITS | Clinical Summary ---
Author Organization [facility] Address [address] [place] [address] Care Team Providers Care Powder Blender And Pourer Name Role Phone Moris Yu MD Primary Care Provider [phone] Allergies Active Allergy Reactions Criticality Noted Date [...] mg by nebulization daily. 0 Active Tiotropium [place] Monohydrate (SPIRIVA RESPIMAT) 2.5 MCG/ACT AERS Inhale [...] 1-dose 75+ series) 2020 Influenza Vaccine (#1) 2024 Hepatitis B Vaccines Aged Out No long er eligible based on patient's age to complete this topic RSV Ped < 20 months Aged Out No longe r eligible based on patient's age to complete this topic Medical Devices Implanted Type Area In School Suspension Aide Device Identifier Shelf Expiration Date Model / Serial / Lot Shell Trident Ii F 58mm 5 Screw Hole Cluster Tritanium - [id number] - [id number] Implanted:Qty: 1 on 08/29/2019 by Ron Sanchez MD at [facility] and [facility] Right: Hip [employer] [id number] 12/24/2023 702-04-58F / / [id number] Screw Trident Ii 30mm 6.5mm Low Profile Hexagonal Bone - [id number] - [id number] Implanted:Qty: 1 on 08/29/2019 by Ron Sanchez MD at [facility] and [facility] Right: Hip [employer] [id number] 01/08/2024 1942-2732 / / 33TH Insert Trident 10d F 36mm X3 Acetabular Hip - 149509 - [id number] Implanted:Qty: 1 on 08/29/2019 by Ron Sanchez MD at [facility] and [facility] Right: Hip [employer] [id number] 01/14/2024 623-10-36F / / [id number] Screw Trident Ii 30mm 6.5mm Low Profile Hexagonal Bone - [id number] - [id number] Implanted:Qty: 1 on 08/29/2019 by Ron Sanchez MD at [facility] and [facility] Right: Hip [employer] [id number] 12/10/2023 5949-0443 / / 3HYD Stem Hip Neck Angle 127 Degree Accolade Ii Sz6 - 190727 - [id number] Implanted:Qty: 1 on 08/29/2019 by Ron Sanchez MD at [facility] and [facility] Right: Hip [employer] [id number] 10/04/2022 9232-5279 / / [id number] Head V40 -5mm 36mm Delta Femoral Hip - 456631 - [id number] Implanted:Qty: 1 on 08/29/2019 by Ron Sanchez MD at [facility] and [facility] Right: Hip [employer] [id number] 07/31/2024 6570-0-036 / / [id number] Advance Directives For more information, please contact: [phone] Latest Code Status on File Code Status [...] way: discussion with patient . Care Teams Powder Blender And Pourer Relationship Specialty Start Date End Date Moris Yu MD [address] [place] [address] PCP - General Internal Medicine 06/26/19
[2024-09-09 11:58] LABS: Alanine Aminotransferase 12 U/L (0-40); Albumin Level 3.2 g/dL (3.5-5.0); Alkaline Phosphatase 67 U/L (39-117); Aspartate Amino Transferase 35 U/L (5-37); Cholesterol 104 mg/dL (<200); HDL Cholesterol 38 mg/dL (>40); Total Protein 6.4 g/dL (6.5-8.0); Triglycerides 75 mg/dL (<150)
[2024-09-09 12:34] LABS: Reflex LDLD? No
== END 2024-09-09 10:48 | disposition home or self-care (01) ==
LOC: HO.LNP 10:47
PROVIDERS: Visit Provider Internal Medicine
DX: E78.00 Pure hypercholesterolemia, unspecified (principal)
CPT/HCPCS: 80061; 80076

== ENCOUNTER 2024-09-10 12:18 | Outpatient (REF) | payer MEDICARE, OTHER, SELFPAY ==
--- OUTSIDE RECORDS SUMMARY | 2024-04-05 06:15 | XMS_ITS ---
Author Organization Moris Yu MD Address [address] [place] [phone] Care Team Providers Care Manager Core Name Role Phone Moris Yu Primary Care Provider REASON FOR VISIT UGI orders Encounters Encounter Location Date Provider Diagnosis Moris Yu MD [address] [place] [address] [place] [phone] 04/05/2024 Moris Yu Abnormal computed tomography of abdomen and pelvis R93.5 Assessments Encounter Date Diagnosis (ICD Code) Assessment Notes Treatment Notes Treatment Clinical Notes Section Notes 04/05/2024 Abnormal computed tomography of abdomen and pelvis (ICD-10 - R93.5) Plan Of Treatment Pending Test Test Name Order Date XR GI SERIES 04/05/2024 Next Appt Details Provider Name:Moris delgadillo, 09/13/2024 02:00:00 PM, [address] [place] [address], [address], [phone], Provider Name:Moris delgadillo, 03/06/2025 08:00:00 AM, [address] [place] [address], [address], [phone], Provider Name:Moris delgadillo, 03/13/2025 02:30:00 PM, [address] [place] [address], [address], [phone], Progress Notes * Erasmo QUEVEDO BDOB: [birth year] (78 yo M)Acc No.[id number]:04/05/2024 Patient: Erasmo JUAREZ :1945 A ge:78 Y S ex:Male Address:[facility] [address] [place] [address] Subjective: * Chief Complaints: * U GI orders * Medical History: * Surgical History: * Hospitalization/Major Diagno stic Procedure: * Medications: Objective: * Vitals: * Physical Examination: Assessment: * Assessment: 1. A bnormal computed tomography of abdomen and pelvis - R93.5 Plan: * Treatment: * Procedure Codes: * true * Date: Generated for Marie vázquez/Jcaob/Susansmitting on: 0 09/10/2024 01:29 PM EDT
--- NOTE | ~2024-09-10 | US_ITS ---
CLINICAL HISTORY: N20.1 - Calculus of ureter US renal Comparison: 08/20/2023 Findings: Right kidney 10.0 cm length. Left kidney 11.5 cm length. Multiple bilateral nonobstructing stones. Bilateral incidental cysts also noted. No bilateral hydronephrosis. Normal bilateral renal echogenicity. Impression: Bilateral nonobstructing renal stones Incidental renal cysts also noted. This document has been electronically signed by: Erasmo Kong MD on 09/10/2024 22:22:54
--- OUTSIDE RECORDS SUMMARY | 2024-09-10 13:28 | XMS_ITS | Continuity of Care Document ---
Author Name [facility] Organization [facility] Care Team Providers Care Cyanide Case Hardener Name Role Phone [facility] Unavailable Unavailable Medications Combined list of outpatient medications from Department of Defense and Veterans Affairs facilities.Medications provided include 1) outpatient medications from the last 15 months, and 2) patient-reported medications. Medication Details Route Status Patient Instructions Prescription Expires Prescription Number Last Dispense Date Ordering Provider Order Date Order Qty Source ALLOPURINOL (ALLOPURINO L), 100MG, TABLET, ORAL, 'S LAB, 1000 ea. BOTTLE Active [id number] 2023 90 Pharmac y Data Transac tion Service Facilit y AMOX TR-POTASSIU M CLAVULANATE (AMOXICILLI N/POTASSIUM CLAV), 875-125 MG, TABLET, ORAL, AUROBINDO PHARM, 20 ea. BOTTLE Active [id number] 4 2023 14 Pharmac y Data Transac tion Service Facilit y MULTAQ (DRONEDARON E HYDROCHLORI DE), 400 MG, TABLET, ORAL, SANOFI-AVEN TIS, 60 ea. BOTTLE Active [id number] 4 2023 180 Pharmac y Data Transac tion Service Facilit y Immunizations Combined list of available immunizations from the Department of Defense and Veterans Affairs facilities. Immunization Series Date Given Administered By Site Reaction Lot Number CVX Code Drug Vat Cleaner Status Comments Source Tdap 2019 BOGDASARIAN, () [...]
--- OUTSIDE RECORDS SUMMARY | 2024-09-10 13:30 | XMS_ITS | Clinical Summary ---
Author Organization [employer] [facility] it Address [address] [place] [address] Care Team Providers Care Rn Obgyn Name Role Phone Moris Yu MD Primary Care Provider [phone] Surgical History Surgery Date Site/Laterality Comments HERNIA [...] TOTAL HIP; Surgeon: Ron Sanchez MD; Location: [facility] Service: Orthopedics; Laterality: Right; JOINT REPLACEMENT PROCEDURE:JOINT REPLACEMENT Medical History Medical History Date Comments Asthma 11/08/2016 DX:Asthma Interstitial lung disease ([facility] V24, [facility] V28) 11/08/2016 DX:Interstitial lung disease (HCC) Pulmonary sarcoidosis ([facility] V24) 11/24/2016 DX:Pulmonary sarcoidosis (HCC) Seasonal allergic rhinitis 11/24/2016 DX:Se asonal allergic rhinitis Nephrolithiasis 03/17/2017 DX:Nephrolithias is; COMMENT: 06/29/2015 Hyperlipidemia 04/20/2017 DX:Hyperlipidemi a Asthma DX:Asthma Hypertension DX:Hypertension Kidney damage DX:Kidney damage Osteoarthritis DX:Osteoarthriti s Sarcoidosis, lung ([facility] V24) DX:Sarcoidosis, lung (HCC) PVC (premature ventricular [...] this topic Medical Devices Implanted Type Area Drawer In Plain Loom Device Identifier Shelf Expiration Date Model / Serial / Lot Shell Trident Ii F 58mm 5 Screw Hole Cluster Tritanium - [id number] Implanted:Qty: 1 on 08/29/2019 by Ron Sanchez MD Right: Hip [employer] [id number] 12/24/2023 702-04-58F / / [id number] Screw Trident Ii 30mm 6.5mm Low Profile Hexagonal Bone - [id number] Implanted:Qty: 1 on 08/29/2019 by Ron Sanchez MD Right: Hip [employer] [id number] 01/08/2024 0796-1440 / / 33TH Insert Trident 10d F 36mm X3 Acetabular Hip - [id number] Implanted:Qty: 1 on 08/29/2019 by Ron Sanchez MD Right: Hip [employer] [id number] 01/14/2024 623-10-36F / / [id number] Screw Trident Ii 30mm 6.5mm Low Profile Hexagonal Bone - [id number] Implanted:Qty: 1 on 08/29/2019 by Ron Sanchez MD Right: Hip [employer] [id number] 12/10/2023 2137-2398 / / [id number] Stem Hip Neck Angle 127 Degree Accolade Ii Sz6 - [id number] Implanted:Qty: 1 on 08/29/2019 by Ron Sanchez MD Right: Hip [employer] [id number] 10/04/2022 4219-2191 / / [id number] Head V40 -5mm 36mm Delta Femoral Hip - [id number] Implanted:Qty: 1 on 08/29/2019 by Ron Sanchez MD Right: Hip [employer] [id number] 07/31/2024 6570-0-036 / / [id number] Care Teams Rn Obgyn Relationship Specialty Start Date End Date Moris Yu MD PCP - General Internal Medicine 01/24/17
--- OUTSIDE RECORDS SUMMARY | 2024-09-10 13:30 | XMS_ITS | Patient Health Record ---
Author Organization [facility] Address [address] [place] [address] Care Team Providers Care Medication Care Manager Name Role Phone Moris Yu MD Primary Care Provider Jose Cruz Hahn [phone] Allergies Allergen (clinical drug ingredient) Drug/Non Drug [...] Problem Status W/U Status Risk Notes Problem 332038368 Encounter for screening for malignant neoplasm of colon (Z12.11) Active confirmed Problem 675744892 Anemia in other chronic diseases classified elsewhere (D63.8) Active confirmed Problem 45390876 Other fatigue (R53.83) Active confirmed Problem 200964418807502 Preprocedural examination (Z01.818) Active confirmed Problem 218446684554434 Aspirin long-ter m use (Z79.82) Active confirmed Problem 722264597 Hx of adenomatou s colonic polyps (Z86.010) Active confirmed Problem 96167977 Diarrhea, unspecified type (R19.7) Active confirmed Plan Of Treatment Future Test Test Name Order Date UPPER GI ENDOSCOPY 04/23/2013 COLONOSCOPY 04/23/2013 COLONOSCOPY 07/27/2018 Insurance Providers Payer Name Payer Address Payer Phone Subscriber Number Group Number Insured Name Patient Relationship to Insured Coverage Start Date Coverage End Date MEDICARE OF [place] [address] [place] [address] [phone] [id number] ALMA LAGOS Self - patient is the insured [employer] [address] [place] [address] [phone] [id number] ALMA LAGOS Self - patient is the [...] esophagitis nor Simmons's, small hiatal hernia Denies CT,DM,CVA,Renal disease Coronary artery disease--2 s tents placed in 08/2014--no CT--has tanner--Dr. Hopper COPD EGD--04/2013--esophageal ring was dilated with an 18mm balloon--no esophagitis, small hiatal hernia Colonoscopy--04/2013--small t ubular adenomas, diverticulosis, internal hemorrhoids Surgical History Surgery Date(Month/Year) Scalene node bx Hand surgery-right Hernia repair Basal cell cancer removal
--- OUTSIDE RECORDS SUMMARY | 2024-09-10 13:30 | XMS_ITS | Clinical Summary ---
Author Organization [facility] Address [address] [place] [address] Care Team Providers Care Ac/Dc Rewinder Name Role Phone Moris Yu MD Primary [...] mg by nebulization daily. 0 Active Tiotropium [place] Monohydrate (SPIRIVA RESPIMAT) 2.5 MCG/ACT AERS Inhale [...] this topic Medical Devices Implanted Type Area Tactical Debriefer Device Identifier Shelf Expiration Date Model / Serial / Lot Shell Trident Ii F 58mm 5 Screw Hole Cluster Tritanium - [id number] - [id number] Implanted:Qty: 1 on 08/29/2019 by Ron Sanchez MD at [facility] Right: Hip [employer] [id number] 12/24/2023 702-04-58F / / [id number] Screw Trident Ii 30mm 6.5mm Low Profile Hexagonal Bone - [id number] - [id number] Implanted:Qty: 1 on 08/29/2019 by Ron Sanchez MD at [facility] Right: Hip [employer] [facility] [id number] 01/08/2024 2340-6138 / / [id number] Insert Trident 10d F 36mm X3 Acetabular Hip - [id number] - [id number] Implanted:Qty: 1 on 08/29/2019 by Ron Sanchez MD at [facility] Right: Hip [facility] [id number] 01/14/2024 623-10-36F / / [id number] Screw Trident Ii 30mm 6.5mm Low Profile Hexagonal Bone - [id number] - [id number] Implanted:Qty: 1 on 08/29/2019 by Ron Sanchez MD at [facility] Right: Hip [facility] [id number] 12/10/2023 7420-4688 / / [id number] Stem Hip Neck Angle 127 Degree Accolade Ii Sz6 - [id number] - [id number] Implanted:Qty: 1 on 08/29/2019 by Ron Sanchez MD at [facility] Right: Hip [employer] [facility] [id number] 10/04/2022 [id number] / / [id number] Head V40 -5mm 36mm Delta Femoral Hip - [id number] - [id number] Implanted:Qty: 1 on 08/29/2019 by Ron Sanchez MD at [facility] Right: Hip [facility] [id number] 07/31/2024 6570-0-036 / / [id number] Advance Directives For more information, please contact: [phone] Latest Code Status on File Code Status [...] way: discussion with patient . Care Teams Ac/Dc Rewinder Relationship Specialty Start Date End Date Moris Yu MD [address] [place] [address] PCP - General Internal Medicine 06/26/19
--- OUTSIDE RECORDS SUMMARY | 2024-09-10 13:30 | XMS_ITS | Clinical Summary ---
Author Organization [facility] Address [address] [place] [address] Phone Care Team Providers Care Claim Technician Name Role Phone Moris Yu MD Primary [...] to complete this topic Insurance Medicare [facility] Medicare [facility] Care Teams Claim Technician Relationship Specialty Start Date End Date Moris Yu MD [address] [place] [address] PCP - General Internal Medicine 08/14/20
--- OUTSIDE RECORDS SUMMARY | 2024-09-10 13:30 | XMS_ITS | Data Portability ---
Author Organization [facility] Address [address] [place] [address] Care Team Providers Care Care Connector Name Role Phone CHRISTIAN WEBB Primary Care [...] view 023 09/23/19 23 [email or web address] [facility], [address], [place], [address], 16:12:07 Medication Orders None record ed. Patient TargetsNo targets recorded. Patient Instructions Encounter Date Encounter Id Patient Instructions Last Modified By Organization Details Last Modified Time 09/22/2022 [id number] three-view x-ray of the right hip reveals well-seated well-positioned total hip arthroplasty without sign of loosening. Not available 09/22/2022 13:42:30 Reason for Referral None Reported. Procedures Surgical History Date Name Laterality Status Provider Name and Address Organization Details Recorded Time total replacement of hip completed Marylou [place] [facility], 09/22/2022 15:39:52 Imaging Results None recorded. Procedure [...] Updated DateTime 09/22/2022 154.94 cm 43.5 kg/m2 111717.[address] [facility], 09/22/2022 14:14:14 Social History None recorded. Functional [...] SNOMED-CT Code Diagnosis ICD10 Code Diagnosis Note [id number] TISH W[address]OP [address] [address] 09/22/2022 13:17:45 09/22/2022 13:52:32 History of total replacement of right hip joint [id number] Z96.641 Health Concerns Section Related Observation LastModified by Organization Detai ls LastModified Time None Recorded Concern Status LastModified by Organization Details LastModified Time None Recorded Advance Directives Directive None Recorded Payers Insurance Date Sequence Insurance Name Policy Number Policy Grijalva Covered Member ID Grijalva Member ID Guarantor Name 09/12/2022 1 MEDICARE [place]: [employer] Erasmo Quevedo [id number] Erasmo Quevedo 09/26/2022 2 FOR LIFE ( - MEDICARE SUPPLEMENT) Erasmo Quevedo [id number] Erasmo Quevedo Notes Date Note Type Note Provider Name and Address Organization Details Recorded Time 09/22/2022 text/html R hip. R-DEE 09/18/19. xrays today. 77-year-old male history of right total hip arthroplasty 09/18/[address] Sanchez. Here for annual follow-up. States intermittent discomfort however doing well. He does do stretching exercises. He also takes his antibiotic prophylaxis prior to dental work. COREEN SIMS PA-C [address] [place] [address], [place], [address], [place] [facility], P 09/22/2022 13:52:09
== END 2024-09-10 12:19 | disposition home or self-care (01) ==
LOC: HO.US 12:18
PROVIDERS: PCP Internal Medicine; Visit Provider Urology
DX: N20.1 Calculus of ureter (principal)
CPT/HCPCS: 76775

== ENCOUNTER → 2024-09-10 12:21 | Outpatient (BNV) | payer MEDICARE, OTHER, SELFPAY | PROVIDERS: PCP Internal Medicine; Visit Provider Radiology Diagnostic Radiology | DX: N20.0 Calculus of kidney (principal) | CPT/HCPCS: 76775 ==

== ENCOUNTER 2024-09-12 13:50 | Outpatient (AMB) | payer MEDICARE, OTHER, SELFPAY ==
--- OUTSIDE RECORDS SUMMARY | 2024-04-05 06:15 | XMS_ITS ---
Author Organization Moris Yu MD Address [address] [place] [address] [phone] Care Team Providers Care Ice Cutter Name Role Phone Moris Yu Primary Care Provider REASON FOR VISIT UGI orders Encounters Encounter Location Date Provider Diagnosis Moris Yu MD [address] [place] [address] [place] [address] [phone] 04/05/2024 Moris Yu Abnormal computed tomography of abdomen and pelvis R93.5 Assessments Encounter Date Diagnosis (ICD Code) Assessment Notes Treatment Notes Treatment Clinical Notes Section Notes 04/05/2024 Abnormal computed tomography of abdomen and pelvis (ICD-10 - R93.5) Plan Of Treatment Pending Test Test Name Order Date XR GI SERIES 04/05/2024 Next Appt Details Provider Name:Moris delgadillo, 09/13/2024 02:00:00 PM, [address] [place] [address], [address], [phone], Provider Name:Moris delgadillo, 03/06/2025 08:00:00 AM, [address] [place] [address], [address], [phone], Provider Name:Moris delgadillo, 03/13/2025 02:30:00 PM, [address] [place] [address], [address], [phone], Progress Notes * Erasmo QUEVEDO BDOB: 6 (78 yo M)Acc No.[id number]:04/05/2024 Patient: Erasmo JUAREZ :1945 A ge:78 Y S ex:Male Address:[facility] [address] [place] [address] Subjective: * Chief Complaints: * U GI orders * Medical History: * Surgical History: * Hospitalization/Major Diagno stic Procedure: * Medications: Objective: * Vitals: * Physical Examination: Assessment: * Assessment: 1. A bnormal computed tomography of abdomen and pelvis - R93.5 Plan: * Treatment: * Procedure Codes: * true * Date: Generated for Marie vázquez/Jacob/Susansmitting on: 0 09/12/2024 02:32 PM EDT
--- NOTE | 2024-09-11 22:21 | A.OFFVIS_ITS ---
Intake Visit Reasons: ESWL follow up/KUB Intake Note: Patient is presents to office today for ESWL follow up/KUB * 07/31 KUB Urology Medication:Tamsulosin, Finasteride, Allopurinol Antibiotic Allergy:AZITHROMYCIN Blood Thinner:Eliquis Machine Precision Engraver Required: No Allergies gadobenic acid (Multihance) Allergy (Severe, Verified 09/12/24 14:01) Rash azithromycin (From ZITHROMAX Z-JOYCE) Allergy (Intermediate, Verified 09/12/24 14:01) HIVES Iodinated Contrast Media (IV CONTRAST) Allergy (Intermediate, Verified 09/12/24 14:01) HIVES Penicillins Allergy (Mild, Verified 09/12/24 14:01) RASH HPI Comments Details: 09/12/24--h/o bilateral nephrolithiasis, s/p right ESWL--07/31/24 -FU renal US - 09/10/24--no hydro, bilateral stones In review of ultrasound imaging multiple stones in the right kidney 2-3 mm and left kidney approximately 2-3 stones largest 5 mm History of Present Illness - The patient is a 79-year-old male presenting with nephrolithiasis and benign prostatic hyperplasia. - Nephrolithiasis: The patient underwent right ESWL on 07/31/24, with subsequent removal of the right ureteral stent. - A renal ultrasound on 09/10/24 revealed bilateral kidney stones, and small kidney cysts that are stable. - The patient is on allopurinol, and potassium citrate for management. - Benign Prostatic Hyperplasia: The patient is managed with finasteride and tamsulosin. - A PSA test in February showed a level of 0.20, within normal limits. Results - Renal ultrasound (09/10/24): Bilateral kidney stones; right kidney stones 2 to 3 mm, left kidney stone 5 mm. - PSA test (February): 0.20, within normal range. Plan--- Continue monitoring nephrolithiasis with follow-up imaging in nine months. - Maintain current medications: allopurinol, K+citrate, finasteride, and tamsulosin. - Encourage increased fluid intake, including lemonade, to help manage kidney stones. 06/10/24--The patient is a 79-year-old male presenting with nephrolithiasis. He has kidney stones in both kidneys and currently has a stent in place for management. Recent imaging revealed kidney stones without calcifications on the stent. The patient's treatment history includes stent placement. The focus is on resolving the stones in the right kidney to prevent movement and obstruction within the urinary tract. Plan-We plan to remove the stent and perform right shock wave therapy for kidney stones. Results - X-ray-KUB-05/31/24--Right nephroureteral stent in place. Bilateral nephrolithiasis. absence of calcifications along the stent visualized. 05/21/24--s/p bilateral ureteroscopy/b/L ureteral stents, right ureteral stone lithotripsy. Presents for left ureteral stent removal today. Cystoscopy left ureteral stent removed without difficulty. Plan right ESWL right ureteral stent removal. 04/22/24--Erasmo is here for telehealth follow-up. History of dementia. Discussed with healthcare proxy Herminia results of CT bilateral ureteral stones with mild hydronephrosis. Discussed bilateral ureteroscopy laser lithotripsy bilateral ureteral stents, patient will need to stop Eliquis. He is on Eliquis for AFib. Will get medical clearance. CTAP-04/03/24--Stones/stone fragments in the right ureter (including 1 within the right ureterovesicular junction) with associated mild hydronephrosis. Nonobstructive left ureterovesicular junction stone. Bilateral nonobstructive renal stones. 02/22/24---Erasmo is followed for kidney stones. Discussed KUB imaging results. Pt asymptomatic will check with CT stone protocol for further evaluation. KUB 02/15/24--1. Bilateral nephrolithiasis. 2. Large calcified stone in the right paraspinal soft tissues at the level of L3 likely within the proximal ureter. 11/16/23--Here for stent removal. s/p --Right ureteroscopy laser lithotripsy 10/31/23 for right ureteral stone. Right ureteral stent removed without difficulty. Erasmo was previously followed by [facility] and is on potassium citrate. Will refer to nephrology for further evaluation. Follow-up in 3 months KUB prior. Urine sent for culture will empirically place on Macrobid. 10/19/23--78-year-old male h/o kidney stones. s/p right stent placed on September 04 for a obstructing ureteral stone. CTAP - right ureteral stent in good position, B/L renal stones, right ureteral stone along stent. discussed plan for Cystoscopy, right ureteroscopy, possible laser lithotripsy, ureteral stent exchange. Risks discussed included but not limited to, possible need to repeat procedure if stone is not completely fragmented, Irritative voidi ng symptoms, bladder spasms, urgency, blood in urine. [facility] Medical History Pulmonary nodules Chronic restrictive lung disease Chronic renal disease Nonsustained ventricular tachycardia PVCs (premature ventricular contractions) CAD (coronary artery disease) Dyspnea Chronic allergic rhinitis Asthma Sarcoidosis Surgical History H/O hernia repair Stented coronary artery Family History Father Atrial fibrillation Mother Atrial fibrillation Other Asthma Social History Household Members: Spouse Housing: House Do you presently have visiting nurse or other home services: No Alcohol intake: never Patient Tobacco Use Status: Never used Tobacco Tobacco use type: Cigar e-Cigarette/Vaping Use: Never Used Second Hand Smoke Exposure: No Advance Directives Date on File: 09/14/23 service: No Results Reviewed Results Reviewed: Date of Service: 09/10/24 US renal Comparison: 08/20/2023 Findings: Right kidney 10.0 cm length. Left kidney 11.5 cm length. Multiple bilateral nonobstructing stones. Bilateral incidental cysts also noted. No bilateral hydronephrosis. Normal bilateral renal echogenicity. Impression: Bilateral nonobstructing renal stones Incidental renal cysts also noted. Date of Service: 05/31/24 EXAMINATION: XR ABDOMEN 1 VIEW (KUB) HISTORY: N13.30 - Unspecified hydronephrosis COMPARISON: Comparison is made with the prior examination dated 02/15/2024. FINDINGS: Two supine views of the abdomen are submitted. The bowel gas pattern is unremarkable, without evidence of mechanical obstruction. A right nephroureteral stent is seen in place. Multiple calcifications are seen overlying both renal shadows. Additional calcifications to the right of the spine at the L3 level are again noted. Many of these calcifications were shown to be within the mesenteric fat on prior CT 04/03/2024. There are no abnormal soft tissue masses. There is degenerative disc disease of the spine. IMPRESSION: Right nephroureteral stent in place. Bilateral nephrolithiasis. Date of Service: 04/03/24 CLINICAL HISTORY: N20.1 - Calculus of ureter CT abdomen and pelvis without contrast Comparison: None Findings: Small bilateral calcified lung granulomas. Mild bibasilar lung atelectasis. Coronary artery calcifications. A few left renal cysts as well as too small to characterize bilateral renal hypodensities. Bilateral diffusely scattered nonobstructive renal stones measuring up to 9 mm. Right: 15 mm stone in the ureteropelvic junction associated with mild upstream hydronephrosis. Additional 1 or 2 neighboring stone/stones (with an overall measurement of 9 mm) in the mid ureter and 2 mm stone in the ureterovesicular junction. 4 mm stone in the left ureterovesicular junction without associated hydronephrosis/hydroureter. Focal thickening (up to 26 mm) of the posterior wall of the nondistended gastric fundus cannot be excluded. Further evaluation with barium study recommended. Small uncomplicated fat containing left inguinal hernia. Prominent prostate measuring 42 mm in width. Moderate stool in the rectum and mild stool in the more proximal colon. Unremarkable appendix. Partially visualized right hip arthroplasty. Curvilinear sclerotic line in the subarticular portion of the left pubic body may be due to an age-indeterminate (more likely chronic than acute) nondisplaced fracture. Vascular calcifications. IMPRESSION: Stones/stone fragments in the right ureter (including 1 within the right ureterovesicular junction) with associated mild hydronephrosis. Nonobstructive left ureterovesicular junction stone. Bilateral nonobstructive renal stones. Other findings as dictated above. Date of Service: 02/15/24 XR ABDOMEN KUB CLINICAL INDICATION: N40.1 - Benign prostatic hyperplasia with lower urinary tract symptoms COMPARISON: 09/18/2023 TECHNIQUE: AP view of the abdomen. FINDINGS: Previously seen right nephroureteral stent has been removed. Multiple calcified stones are again seen throughout both kidneys. There is a large calcified stone in the right paraspinal soft tissues at the level of the L3 likely within the proximal ureter. This is grossly unchanged in position compared to the prior exams. There are multiple additional calcifications along the right paraspinal soft tissues extending more inferiorly which could represent additional ureteral stones. Bowel gas pattern is unremarkable. Status post right hip total arthroplasty. Degenerative changes seen of the lumbar spine and left hip joint IMPRESSION: 1. Bilateral nephrolithiasis. 2. Large calcified stone in the right paraspinal soft tissues at the level of L3 likely within the proximal ureter. This is grossly unchanged in position compared to the prior exams. There are multiple additional calcifications along the right paraspinal soft tissues extending more inferiorly which could represent additional ureteral stones. Date of Service: 09/14/23 CT ABDOMEN AND PELVIS WITHOUT CONTRAST CLINICAL INFORMATION: History of kidney stones status post stent COMPARISON: CT abdomen pelvis 09/04/2023 TECHNIQUE: Multidetector volumetric imaging was performed from the superior aspect of the liver through the pubic symphysis. Sagittal and coronal reformatted images were obtained on the technologist's workstation. This CT examination was performed using dose optimization techniques as appropriate, variously including the following: *Automated exposure control *Adjustment of mA and/or kV according to patient size (this includes techniques or standardized protocols for targeted exams where dose is matched to indication/reason for exam; i.e. extremities or head) *Use of iterative reconstruction technique DLP: 741 mGy-cm FINDINGS: LUNG BASES: Calcified granulomas are present along with traction bronchiectasis and scarring. LIVER, GALLBLADDER, AND BILIARY TREE: The liver is normal in size, shape, and attenuation. No focal hepatic lesion or biliary ductal dilatation is present. The gallbladder is unremarkable with no evidence of radiopaque gallstones, gallbladder wall thickening, or obvious pericholecystic inflammatory changes. PANCREAS: Unremarkable. SPLEEN: Unremarkable. ADRENAL GLANDS: Unremarkable. KIDNEYS AND URETERS: On the right, a double-J internally stent is present. Multiple small intrarenal calculi are seen. There is one larger calculus at the UP junction measuring 0.8 cm. There is a 5 mm calculus adjacent to the stent in the mid ureter. Multiple nonobstructing calculi present in the left kidney. A benign left mid renal 1.0 cm Bosniak class I renal cyst is noted which requires no additional imaging or follow up. No solid renal masses are seen. BLADDER: Logan catheter is present in the bladder GASTROINTESTINAL TRACT: The small and large bowel are unremarkable. The appendix is unremarkable. ABDOMINAL WALL: Tiny periumbilical hernia contains only fat. There is a tiny left inguinal hernia seen containing only fat. LYMPH NODES: No retroperitoneal lymphadenopathy. VASCULAR: Unremarkable. PELVIC VISCERA: The prostate and seminal vesicles are unremarkable. OSSEOUS STRUCTURES: There is a right total hip prosthesis present. Marked degenerative changes are present throughout the spine with mild scoliosis convex to right. IMPRESSION: 1. Bilateral nephrolithiasis with right-sided double-J stent in place. There is a 5 mm calculus adjacent to the stent in the mid ureter. 2. Other incidental findings as described above. Assessment & Plan Assessment & Plan (1) Bilateral kidney stones: Code(s): N20.0 - Calculus of kidney Category: Medical (2) BPH loc w urin obs/LUTS: Code(s): N40.1 - Benign prostatic hyperplasia with lower urinary tract symptoms Category: Medical (3) Chronic renal disease: Code(s): N18.9 - Chronic kidney disease, unspecified Category: Medical Qualifiers: Chronic kidney disease stage: unspecified stage Qualified Code(s): N18.9 - Chronic kidney disease, unspecified Plan Plan--- Continue monitoring nephrolithiasis with follow-up imaging in nine months. - He is also followed by Nephrology - Maintain current medications: allopurinol, K+citrate, finasteride, and tamsulosin. - Encourage increased fluid intake, including lemonade, to help manage kidney stones. Orders: Orders CT kidney stone 9 Months N20.0 - Calculus of kidney Medications: Refilled finasteride 5 mg PO DAILY 90 tabs 1RF 90 days potassium citrate ER 10 mEq PO BID 180 tabs 2RF 90 days Patient Instructions: The patient had an opportunity to ask questions regarding treatment plan. The patient expressed understanding and agreement with the above treatment plan. The patient is aware they should contact our office by phone for worsening of their current condition or the appearance of new symptoms. Compliance is enc ouraged with any medications and followup testing that is ordered. It is a privilege to be allowed the opportunity to participate in the urologic care of your patient. If you have any questions or concerns regarding treatment for the above conditions please do not hesitate to contact me. The office telephone contact is [phone]. This note is constructed in part using voice recognition software. While every effort has been made to ensure accuracy contract negotiation manager errors may have been included. Yours sincerely, Kuldip Ibarra MD Scribe Plan - Not visible on output: Patient was informed and verbally consented to the use of an ambient scribe for clinic note documentation during this visit. Coding Level of Care Code Est Pt Level 3 (17659) Global (37130) Diagnoses Bilateral kidney stones N20.0 BPH loc w urin obs/LUTS N40.1 Chronic kidney disease, unspecified CKD stage N18.9 Chronic kidney disease stage: unspecified stage
--- OUTSIDE RECORDS SUMMARY | 2024-09-12 14:30 | XMS_ITS | Continuity of Care Document ---
Author Name [facility] Organization [facility] Care Team Providers Care Manager Delivery Name Role Phone [facility] Unavailable Unavailable Medications Combined list of outpatient medications from Department of Defense and Veterans Affairs facilities.Medications provided include 1) outpatient medications from the last 15 months, and 2) patient-reported medications. Medication Details Route Status Patient Instructions Prescription Expires Prescription Number Last Dispense Date Ordering Provider Order Date Order Qty Source AMOX TR-POTASSIU M CLAVULANATE (AMOXICILLI N/POTASSIUM CLAV), 875-125 MG, TABLET, ORAL, AUROBINDO PHARM, 20 ea. BOTTLE Active [id number] 2023 14 Pharmac y Data Transac tion Service Facilit y MULTAQ (DRONEDARON E HYDROCHLORI DE), 400 MG, TABLET, ORAL, SANOFI-AVEN TIS, 60 ea. BOTTLE Active [id number] 2023 180 Pharmac y Data Transac tion Service Facilit y Immunizations Combined list of available immunizations from the Department of Defense and Veterans Affairs facilities. Immunization Series Date Given Administered By Site Reaction Lot Number CVX Code Drug Polymer Tester Status Comments Source Tdap 2019 ELIOTDACHRISTOS, () Not Given Tdap [facility] Influenza, injectable, MDCK, quadrivalent, preservative 2018 [...] facilities. Social History Type Response Date Comment Sourc e This section is an empty social history section. [facility]
--- OUTSIDE RECORDS SUMMARY | 2024-09-12 14:33 | XMS_ITS | Clinical Summary ---
Author Organization [facility] Address [address] [place] [address] Phone Care Team Providers Care Machine Carton Marker Name Role Phone Moris Yu MD Primary [...] age to complete this topic Insurance Medicare [facility] Medicare [facility] Care Teams Machine Carton Marker Relationship Specialty Start Date End Date Moris Yu MD [address] [place] [address] PCP - General Internal Medicine 08/14/20
--- OUTSIDE RECORDS SUMMARY | 2024-09-12 14:33 | XMS_ITS | Patient Health Record ---
Author Organization [facility] Address [address] [place] [address] Care Team Providers Care Household Refrigerator Mechanic Name Role Phone Moris Yu MD Primary Care Provider Jose Cruz Hahn [phone] Allergies Allergen (clinical drug ingredient) Drug/Non Drug [...] Problem Status W/U Status Risk Notes Problem 424368315 Encounter for screening for malignant neoplasm of colon (Z12.11) Active confirmed Problem 519728144 Anemia in other chronic diseases classified elsewhere (D63.8) Active confirmed Problem 82596396 Other fatigue (R53.83) Active confirmed Problem 954731208997365 Preprocedural examination (Z01.818) Active confirmed Problem 576946587111190 Aspirin long-ter m use (Z79.82) Active confirmed Problem 869915637 Hx of adenomatou s colonic polyps (Z86.010) Active confirmed Problem 02037417 Diarrhea, unspecified type (R19.7) Active confirmed Plan Of Treatment Future Test Test Name Order Date UPPER GI ENDOSCOPY 04/23/2013 COLONOSCOPY 04/23/2013 COLONOSCOPY 07/27/2018 Insurance Providers Payer Name Payer Address Payer Phone Subscriber Number Group Number Insured Name Patient Relationship to Insured Coverage Start Date Coverage End Date MEDICARE OF [place] [address] [place] [address] [phone] [id number] ALMA LAGOS Self - patient is the insured Standing [employer] [address] [place] [address] [id number] ALMA LAGOS Self - patient is the [...] esophagitis nor Simmons's, small hiatal hernia Denies CO,DM,CVA,Renal disease Coronary artery disease--2 s tents placed in 08/2014--no CO--has tanner--Dr. Hopper COPD EGD--04/2013--esophageal ring was dilated with an 18mm balloon--no esophagitis, small hiatal hernia Colonoscopy--04/2013--small t ubular adenomas, diverticulosis, internal hemorrhoids Surgical History Surgery Date(Month/Year) Scalene node bx Hand surgery-right Hernia repair Basal cell cancer removal
--- OUTSIDE RECORDS SUMMARY | 2024-09-12 14:33 | XMS_ITS | Clinical Summary ---
Author Organization [facility] Address [address] [place] [address] Care Team Providers Care Lehr Stripper Name Role Phone Moris Yu MD Primary [...] mg by nebulization daily. 0 Active Tiotropium [place] Monohydrate (SPIRIVA RESPIMAT) 2.5 MCG/ACT AERS Inhale [...] this topic Medical Devices Implanted Type Area Development Team Lead Device Identifier Shelf Expiration Date Model / Serial / Lot Shell Trident Ii F 58mm 5 Screw Hole Cluster Tritanium - [id number] - [id number] Implanted:Qty: 1 on 08/29/2019 by Ron Sanchez MD at [facility] Right: Hip [employer] [id number] 12/24/2023 702-04-58F / / [id number] Screw Trident Ii 30mm 6.5mm Low Profile Hexagonal Bone - 135483 - [id number] Implanted:Qty: 1 on 08/29/2019 by Ron Sanchez MD at [facility] and [facility] Right: Hip [employer] [id number] 01/08/2024 9457-1834 / / 33TH Insert Trident 10d F 36mm X3 Acetabular Hip - [id number] - [id number] Implanted:Qty: 1 on 08/29/2019 by Ron Sanchez MD at [facility] Right: Hip [employer] [id number] 01/14/2024 623-10-36F / / [id number] Screw Trident Ii 30mm 6.5mm Low Profile Hexagonal Bone - 727153 - [id number] Implanted:Qty: 1 on 08/29/2019 by Ron Sanchez MD at [facility] Right: Hip [employer] [id number] 12/10/2023 8661-4257 / / [id number] Stem Hip Neck Angle 127 Degree Accolade Ii Sz6 - [id number] - [id number] Implanted:Qty: 1 on 08/29/2019 by Ron Sanchez MD at [facility] Right: Hip [employer] [id number] 10/04/2022 6046-6045 / / [id number] Head V40 -5mm 36mm Delta Femoral Hip - 496836 - [id number] Implanted:Qty: 1 on 08/29/2019 by Ron Sanchez MD at [facility] Right: Hip [employer] [id number] 07/31/2024 6570-0-036 / / [id number] Advance Directives For more information, please contact: [phone] Latest Code Status on File Code Status [...] way: discussion with patient . Care Teams Lehr Stripper Relationship Specialty Start Date End Date Moris Yu MD [address] [place] [address] PCP - General Internal Medicine 06/26/19
--- OUTSIDE RECORDS SUMMARY | 2024-09-12 14:33 | XMS_ITS | Data Portability ---
Author Organization [facility] Mena Zaldivar AONE Milliken Address [address] [place] [address] Care Team Providers Care General I Farmworker Name Role Phone CHRISTIAN WEBB Primary Care Provider [phone] Assessment Encounter Date Assessment Date Assessment LastModified [...] view 023 09/23/19 23 [email or web address] [facility], [address], [address], [place], [address], 16:12:07 Medication Orders None record ed. Patient TargetsNo targets recorded. Patient Instructions Encounter Date Encounter Id Patient Instructions Last Modified By Organization Details Last Modified Time 09/22/2022 [id number] three-view x-ray of the right hip reveals well-seated well-positioned total hip arthroplasty without sign of loosening. Not available 09/22/2022 13:42:30 Reason for Referral None Reported. Procedures Surgical History Date Name Laterality Status Provider Name and Address Organization Details Recorded Time total replacement of hip completed Marylou [place] [facility], 09/22/2022 15:39:52 Imaging Results None recorded. Procedure [...] Updated DateTime 09/22/2022 154.94 cm 43.5 kg/m2 654467.[address] [facility], 09/22/2022 14:14:14 Social History None recorded. Functional [...] SNOMED-CT Code Diagnosis ICD10 Code Diagnosis Note [id number] TISH [address]OP [address] [address] 09/22/2022 13:17:45 09/22/2022 13:52:32 History of total replacement of right hip joint 2119530110 56989 Z96.641 Health Concerns Section Related Observation LastModified by Organization Detai ls LastModified Time None Recorded Concern Status LastModified by Organization Details LastModified Time None Recorded Advance Directives Directive None Recorded Payers Insurance Date Sequence Insurance Name Policy Number Policy Grijalva Covered Member ID Grijalva Member ID Guarantor Name 09/12/2022 1 [place] [employer] Erasmo Quevedo [id number] Erasmo Quevedo 09/26/2022 2 FOR LIFE ( - MEDICARE SUPPLEMENT) Erasmo Quevedo [id number] Erasmo Quevedo Notes Date Note Type Note Provider Name and Address Organization Details Recorded Time 09/22/2022 text/html R hip. R-DEE 09/18/19. xrays today. 77-year-old male history of right total hip arthroplasty 09/18/[address] Sanchez. Here for annual follow-up. States intermittent discomfort however doing well. He does do stretching exercises. He also takes his antibiotic prophylaxis prior to dental work. COREEN SIMS PA-C [address] [place] [address], [place], [address], [place] [facility], P 09/22/2022 13:52:09
--- OUTSIDE RECORDS SUMMARY | 2024-09-12 14:33 | XMS_ITS | Clinical Summary ---
Author Organization [facility] it Address [address] [place] [address] Care Team Providers Care Training Assistant Name Role Phone Moris Yu MD Primary [...] Asthma 11/08/2016 DX:Asthma Interstitial lung disease ([facility] [place] V24, [facility] V28) 11/08/2016 DX:Interstitial lung disease (HCC) Pulmonary sarcoidosis ([facility] V24) 11/24/2016 DX:Pulmonary sarcoidosis (HCC) Seasonal allergic rhinitis 11/24/2016 DX:Se asonal allergic rhinitis Nephrolithiasis 03/17/2017 DX:Nephrolithias is; COMMENT: 06/29/2015 Hyperlipidemia 04/20/2017 DX:Hyperlipidemi a Asthma DX:Asthma Hypertension DX:Hypertension Kidney damage DX:Kidney damage Osteoarthritis DX:Osteoarthriti s Sarcoidosis, lung ([facility] V24) DX:Sarcoidosis, lung (HCC) PVC (premature ventricular [...] this topic Medical Devices Implanted Type Area Insurance Verification Representative Device Identifier Shelf Expiration Date Model / Serial / Lot Shell Trident Ii F 58mm 5 Screw Hole Cluster Tritanium - [id number] Implanted:Qty: 1 on 08/29/2019 by Ron Sanchez MD Right: Hip [employer] [id number] 12/24/2023 702-04-58F / / [id number] Screw Trident Ii 30mm 6.5mm Low Profile Hexagonal Bone - [id number] Implanted:Qty: 1 on 08/29/2019 by Ron Sanchez MD Right: Hip [employer] [id number] 01/08/2024 4892-7068 / / 33TH Insert Trident 10d F 36mm X3 Acetabular Hip - [id number] Implanted:Qty: 1 on 08/29/2019 by Ron Sanchez MD Right: Hip [employer] [id number] 01/14/2024 623-10-36F / / [id number] Screw Trident Ii 30mm 6.5mm Low Profile Hexagonal Bone - [id number] Implanted:Qty: 1 on 08/29/2019 by Ron Sanchez MD Right: Hip [employer] [id number] 12/10/2023 4927-5684 / / [id number] Stem Hip Neck Angle 127 Degree Accolade Ii Sz6 - [id number] Implanted:Qty: 1 on 08/29/2019 by Ron Sanchez MD Right: Hip [employer] [id number] 10/04/2022 6086-5157 / / [id number] Head V40 -5mm 36mm Delta Femoral Hip - [id number] Implanted:Qty: 1 on 08/29/2019 by Ron Sanchez MD Right: Hip [employer] [id number] 07/31/2024 6570-0-036 / / [id number] Care Teams Training Assistant Relationship Specialty Start Date End Date Moris Yu MD PCP - General Internal Medicine 01/24/17
== END 2024-09-12 14:29 | disposition home or self-care (01) ==
LOC: HO.HUSH 13:50
PROVIDERS: PCP Internal Medicine; Visit Provider Urology
DX: N20.0 Calculus of kidney (principal); N40.1 Benign prostatic hyperplasia with lower urinary tract symptoms; N18.9 Chronic kidney disease, unspecified
CPT/HCPCS: 99024

== ENCOUNTER → 2024-09-12 13:50 | Outpatient (BNVA) | payer MEDICARE, OTHER, SELFPAY | PROVIDERS: PCP Internal Medicine; Visit Provider Urology | DX: N20.0 Calculus of kidney (principal); N40.1 Benign prostatic hyperplasia with lower urinary tract symptoms; N18.9 Chronic kidney disease, unspecified | CPT/HCPCS: 99212 ==

== ENCOUNTER 2024-10-11 10:39 | Outpatient (REF) | payer MEDICARE, OTHER, SELFPAY ==
--- OUTSIDE RECORDS SUMMARY | 2024-10-10 06:01 | XMS_ITS ---
Author Organization Moris Yu MD Address [address] [place] [phone] Care Team Providers Care Material Expeditor Name Role Phone Moris Yu Primary Care Provider [phone] REASON FOR VISIT [facility] [place] bill Encounters Encounter Location Date Provider Diagnosis Moris Yu MD [address] [place] [address] [place] [phone] 10/10/2024 Moris Yu Plan Of Treatment Next Appt Details Provider Name:Moris Wiggins iejosé, 03/06/2025 08:00:00 AM, [address] [place] [address], Suite [facility], [place], [place], [phone], Provider Name:Moris Wiggins iejosé, 03/13/2025 02:30:00 PM, [address] [place] [address], [address] [place] [address], [phone], Progress Notes * Erasmo QUEVEDO BDOB: [birth year] (79 yo M)Acc No.[id number]:10/10/2024 Patient: Erasmo JUAREZ :1945 A ge:79 Y S ex:Male Address:[address] [place] [address] * * Date:
--- OUTSIDE RECORDS SUMMARY | 2024-10-11 10:44 | XMS_ITS | Continuity of Care Document ---
Author Name [facility] Organization [facility] Care Team Providers Care Green Building Engineer Name Role Phone [facility] Unavailable Unavailable Medications [...] ORAL, AUROBINDO PHARM, 20 ea. BOTTLE Active [id number] 2023 14 Pharmac y Data Transac tion Service Facilit y MULTAQ (DRONEDARON E HYDROCHLORI DE), 400 MG, TABLET, ORAL, SANOFI-AVEN TIS, 60 ea. BOTTLE Active [id number] 2023 180 Pharmac y Data Transac tion Service Facilit y Immunizations Combined list of available immunizations from the Department of Defense and Veterans Affairs facilities. Immunization Series Date Given Administered By Site Reaction Lot Number CVX Code Drug Physician Support Coordinator Status Comments Source Tdap 2019 ELIOTDACHRISTOS, () Not Given Tdap [facility] Influenza, injectable, MDCK, quadrivalent, preservative 2018 ANNABEL,D [...] section is an empty social history section. [facility]
--- OUTSIDE RECORDS SUMMARY | 2024-10-11 10:45 | XMS_ITS | Clinical Summary ---
Author Organization [facility] Address [address] [place] [address] Phone Care Team Providers Care Slitter Helper Name Role Phone Moris Yu MD Primary Care Provider [phone] Allergies Active Allergy Reactions Criticality Noted Date [...] [facility] Medicare [facility] Care Teams Slitter Helper Relationship Specialty Start Date End Date Moris Yu MD [address] [place] [address] PCP - General Internal Medicine 08/14/20
--- OUTSIDE RECORDS SUMMARY | 2024-10-11 10:45 | XMS_ITS | Encounter Summary ---
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 Procedures NC PET/CT Cardiac Sarcoid PET/SPECT NC SPECT MYOCARDIAL VIABILITY Joon Hopper MD Phone: tel: fax: Referral ID Status Reason Start Date Expiration Date Visits Re quested Visits Authorized [id number] Closed 08/12/2021 08/12/2022 1 1 Encounter Details Date Type Department Care Team (Late st Contact Info) Description 08/12/2021 Ancillary Orders [facility] Nuclear Medicine [address] [place] [address] Joon Hopper MD [address] [place] [address] Sarcoidosis; 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 Social History Tobacco Use Types Packs/Day Years Used Date Smoking Tobacco: Never Smokeless Tobacco: Never Alcohol Use Standard Drinks/Week Comments Not Asked 0 (1 standard drink = 0.6 oz pur e alcohol) Sex and Gender Information Value Date Recorded Sex Assigned at Not on file Legal Sex Male 4:56 PM EST Gender Identity Not on file Sexual Orientation Not on file documented as of this encounter Plan of Treatment Not on file documented as of this encounter Results * NC PET/CT Cardiac Sarcoid PET/SPECT (08/23/2021 4:50 PM EDT) Anatomical Region Laterality Modality Heart Nuclear Medicine 08/23/2021 10:0 0 AM EDT Narrative 08/23/2021 6:[address] Christianson, Mr. Erasmo Quevedo is a 71-year-old man with a history of CAD and prior PCI. Multiple prior PET scans demonstrated equivocal FDG uptake and were non-diagnostic of myocardial inflammation. This study is requested to assess for myocardial inflammation. Tc-99m sestamibi SPECT/CT and FDG PET/CT Protocol (23-Aug-2021): The patient received 13.2 mCi of Tc-99m sestamibi. Myocardial perfusion SPECT/CT imaging was obtained at rest. Following perfusion imaging, the patient was injected with 10.6 mCi of F-18 FDG. After a 90-minute uptake period, a dedicated cardiac PET/CT was obtained. Finally, a limited whole body FDG PET/CT scan was obtained. He was instructed to follow a high fat low carbohydrate diet prior to the study. Rest Myocardial Perfusion and FDG Images: Image quality was excellent. The images demonstrated normal LV size and normal tracer uptake in the lungs. They also demonstrated normal RV size with normal RV tracer uptake at rest. There is adequate physiologic suppression of FDG uptake from normal myocardium. The rest perfusion images are normal. There is no evidence of abnormal glucose uptake in the heart. Gated SPECT: The LV ejection fraction was calculated at 53% with normal LV volumes. There is normal regional wall motion and thickening. RV systolic function is preserved. Limited Whole Body FDG PET/CT Images: The whole-body images were reviewed by Dr. Karlos Roblero. Images were obtained from the level of the basal ganglia to the kidneys. COMPARISON: Prior cardiac sarcoid PET/CT 12/11/2015 FINDINGS: HEAD AND NECK: There is peripheral relatively intense FDG uptake associated with an opacified left maxillary sinus. There is an FDG-avid subcentimeter left cervical lymph node. CHEST: There are diffuse calcified supraclavicular, mediastinal, and hilar lymph nodes which are not significantly FDG-avid and have increased in number compared to the prior PET/CT. Bilateral nodular opacities and consolidations predominantly in the hilar regions have decreased compared to the prior PET/CT and have mild FDG uptake similar to that of blood pool. ABDOMEN/PELVIS: There is no FDG-avid upper abdominal lymphadenopathy. The spleen has slightly increased in craniocaudal dimension compared to the prior PET/CT from 8.5 cm to 10.5 cm. There is persistent diffuse FDG uptake associated with the spleen slightly greater than that of the liver. MUSCULOSKELETAL: There is no FDG-avid or destructive bone lesion. Final Impression: 1. There is no evidence of myocardial inflammation. 2. Normal global LV systolic function. 3. There is no evidence of metabolically active extracardiac sarcoidosis involving the lymph nodes or lungs. 4. There is diffuse slightly increased FDG uptake associated with the spleen which may be reactive rather than involvement with extracardiac sarcoidosis. The teaching physician, Dr. Abdulkadir Ngo, has supervised the procedure and performed the interpretation and reporting of the resulting data. Thank you for referring this patient to us. Sincerely yours, Abdulkadir Ngo M.D., Attending Physician Karlos Roblero M.D., Attending Physician Frederick Coats M.D., Cardiovascular Imaging Fellow Procedure Note Abdulkadir Gamble MD - 08/23/[address] Christianson, Mr. Erasmo Quevedo is a 71-year-old man with a history of CAD and prior PCI.Multiple prior PET scans demonstrated equivocal FDG uptake and werenon-diagnostic of myocardial inflammation. This study is requested toassess for myocardial inflammation. Tc-99m sestamibi SPECT/CT and FDG PET/CT Protocol (23-Aug-2021): The patient received 13.2 mCi of Tc-99m sestamibi. Myocardial perfusionSPECT/CT imaging was obtained at rest. Following perfusion imaging, the patient was injected with 10.6 mCi ofF-18 FDG. After a 90-minute uptake period, a dedicated cardiac PET/CT wasobtained. Finally, a limited whole body FDG PET/CT scan was obtained. Hewas instructed to follow a high fat low carbohydrate diet prior to the study. Rest Myocardial Perfusion and FDG Images: Image quality was excellent. The images demonstrated normal LV size andnormal tracer uptake in the lungs. They also demonstrated normal RV sizewith normal RV tracer uptake at rest. There is adequate physiologic suppression of FDG uptake from normalmyocardium. The rest perfusion images are normal. There is no evidence of abnormal glucose uptake in the heart. Gated SPECT: The LV ejection fraction was calculated at 53% with normal LV volumes.There is normal regional wall motion and thickening. RV systolic functionis preserved. Limited Whole Body FDG PET/CT Images: The whole-body images were reviewed by Dr. Karlos Roblero. Images were obtained from the level of the basal ganglia to the kidneys. COMPARISON: Prior cardiac sarcoid PET/CT 12/11/2015 FINDINGS: HEAD AND NECK: There is peripheral relatively intense FDG uptakeassociated with an opacified left maxillary sinus. There is an FDG-avidsubcentimeter left cervical lymph node. CHEST: There are diffuse calcified supraclavicular, mediastinal, and hilarlymph nodes which are not significantly FDG-avid and have increased innumber compared to the prior PET/CT. Bilateral nodular opacities andconsolidations predominantly in the hilar regions have decreased compared to the prior PET/CT and have mildFDG uptake similar to that of blood pool. ABDOMEN/PELVIS: There is no FDG-avid upper abdominal lymphadenopathy. Thespleen has slightly increased in craniocaudal dimension compared to theprior PET/CT from 8.5 cm to 10.5 cm. There is persistent diffuse FDGuptake associated with the spleen slightly greater than that of the liver. MUSCULOSKELETAL: There is no FDG-avid or destructive bone lesion. Final Impression: 1. There is no evidence of myocardial inflammation. 2. Normal global LV systolic function. 3. There is no evidence of metabolically active extracardiac sarcoidosisinvolving the lymph nodes or lungs. 4. There is diffuse slightly increased FDG uptake associated with thespleen which may be reactive rather than involvement with extracardiacsarcoidosis. The teaching physician, Dr. Abdulkadir Ngo, has supervised the procedureand performed the interpretation and reporting of the resulting data. Thank you for referring this patient to us. 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 documented in this encounter Additional Health Concerns Assessment Noted Time PHQ-2 Depression Total Score: 0 01/06/20 17 4:02 PM EST documented as of this encounter Care Teams Generating Plant Superintendent Relationship Specialty Start Date End Date Moris Yu MD [address] [place] [address] [address] [place] [address] PCP - General Internal Medicine 11/14/14 Sebastian Patricia MD [address] [place] [address] [place] [address] Internal Medicine 01/27/15 Joon Hopper MD [address] [place] [address] Dr Nam [facility] [place] [address] Cardiology 01/27/15 documented as of this encounter Additional Source Comments The information contained in this document represents components of the legal health record. It is not the complete legal health record.[facility]
--- OUTSIDE RECORDS SUMMARY | 2024-10-11 10:46 | XMS_ITS | Clinical Summary ---
Author Organization [facility] Address [address] [place] [address] Care Team Providers Care Cipher Expert Name Role Phone Moris Yu MD Primary [...] mg by nebulization daily. 0 Active Tiotropium [place] Monohydrate (SPIRIVA RESPIMAT) 2.5 MCG/ACT AERS Inhale [...] this topic Medical Devices Implanted Type Area Thermometer Production Worker Device Identifier Shelf Expiration Date Model / Serial / Lot Shell Trident Ii F 58mm 5 Screw Hole Cluster Tritanium - [id number] - [id number] Implanted:Qty: 1 on 08/29/2019 by Ron Sanchez MD [facility] Right: Hip [employer] [id number] 12/24/2023 702-04-58F / / [id number] Screw Trident Ii 30mm 6.5mm Low Profile Hexagonal Bone - [id number] - [id number] Implanted:Qty: 1 on 08/29/2019 by Ron Sanchez MD at [facility] Right: Hip [employer] [id number] 01/08/2024 8720-6105 / / 33TH Insert Trident 10d F 36mm X3 Acetabular Hip - 064631 - [id number] Implanted:Qty: 1 on 08/29/2019 by Ron Sanchez MD at [facility] Right: Hip [employer] [id number] 01/14/2024 623-10-36F / / [id number] Screw Trident Ii 30mm 6.5mm Low Profile Hexagonal Bone - [id number] - [id number] Implanted:Qty: 1 on 08/29/2019 by Ron Sanchez MD at [facility] Right: Hip [employer] [id number] 12/10/2023 6376-8443 / / [id number] Stem Hip Neck Angle 127 Degree Accolade Ii Sz6 - 657821 - [id number] Implanted:Qty: 1 on 08/29/2019 by Ron Sanchez MD at [facility] Right: Hip [employer] [id number] 10/04/2022 8888-7508 / / [id number] Head V40 -5mm 36mm Delta Femoral Hip - 446083 - [id number] Implanted:Qty: 1 on 08/29/2019 by Ron Sanchez MD at [facility] Right: Hip [employer] [id number] 07/31/2024 6570-0-036 / / [id number] Advance Directives For more information, please contact: [phone] Latest Code Status on File Code Status [...] way: discussion with patient . Care Teams Cipher Expert Relationship Specialty Start Date End Date Moris Yu MD [address] [place] [address] PCP - General Internal Medicine 06/26/19
--- OUTSIDE RECORDS SUMMARY | 2024-10-11 10:46 | XMS_ITS | Clinical Summary ---
Author Organization [employer] [facility] it Address [address] [place] [address] Care Team Providers Care Fitting Room Attendant Name Role Phone Moris Yu MD Primary Care Provider [phone] Surgical History Surgery Date Site/Laterality Comments HERNIA [...] TOTAL HIP; Surgeon: Ron Sanchez MD; Location: [facility] Service: Orthopedics; Laterality: Right; JOINT REPLACEMENT PROCEDURE:JOINT REPLACEMENT Medical History Medical History Date Comments Asthma 11/08/2016 DX:Asthma Interstitial lung disease ([facility] V24, [facility] V28) 11/08/2016 DX:Interstitial lung disease (HCC) Pulmonary sarcoidosis ([facility] V24) 11/24/2016 DX:Pulmonary sarcoidosis (HCC) Seasonal allergic rhinitis 11/24/2016 DX:Se asonal allergic rhinitis Nephrolithiasis 03/17/2017 DX:Nephrolithias is; COMMENT: 06/29/2015 Hyperlipidemia 04/20/2017 DX:Hyperlipidemi a Asthma DX:Asthma Hypertension DX:Hypertension Kidney damage DX:Kidney damage Osteoarthritis DX:Osteoarthriti s Sarcoidosis, lung ([facility] V24) DX:Sarcoidosis, lung (HCC) PVC (premature [...] series) 2020 Cholesterol Screening (Lipid Panel) 02/04/2022 Falls Risk Assessment 02/04/2022 Hepatitis C Screening 02/04/2022 Social Influencers of Health Screening 02/04/2022 COVID-19 Vaccine (1 - 2023-2 5 season) 2023 Depression Screening 02/28/2024 Influenza Vaccine (#1) 2024 HIB Vaccines Aged [...] this topic Medical Devices Implanted Type Area Software Engineer Advisor Device Identifier Shelf Expiration Date Model / Serial / Lot Shell Trident Ii F 58mm 5 Screw Hole Cluster Tritanium - [id number] Implanted:Qty: 1 on 08/29/2019 by Ron Sanchez MD Right: Hip [employer] [id number] 12/24/2023 702-04-58F / / [id number] Screw Trident Ii 30mm 6.5mm Low Profile Hexagonal Bone - [id number] Implanted:Qty: 1 on 08/29/2019 by Ron Sanchez MD Right: Hip [employer] [id number] 01/08/2024 3890-0275 / / 33TH Insert Trident 10d F 36mm X3 Acetabular Hip - [id number] Implanted:Qty: 1 on 08/29/2019 by Ron Sanchez MD Right: Hip [employer] [id number] 01/14/2024 623-10-36F / / [id number] Screw Trident Ii 30mm 6.5mm Low Profile Hexagonal Bone - [id number] Implanted:Qty: 1 on 08/29/2019 by Ron Sanchez MD Right: Hip [employer] [id number] 12/10/2023 5264-3195 / / [id number] Stem Hip Neck Angle 127 Degree Accolade Ii Sz6 - [id number] Implanted:Qty: 1 on 08/29/2019 by Ron Sanchez MD Right: Hip [employer] [id number] 10/04/2022 3988-2604 / / [id number] Head V40 -5mm 36mm Delta Femoral Hip - [id number] Implanted:Qty: 1 on 08/29/2019 by Ron Sanchez MD Right: Hip [employer] [id number] 07/31/2024 6570-0-036 / / [id number] Care Teams Fitting Room Attendant Relationship Specialty Start Date End Date Moris Yu MD PCP - General Internal Medicine 01/24/17
--- OUTSIDE RECORDS SUMMARY | 2024-10-11 10:46 | XMS_ITS | Patient Health Record ---
Author Organization [facility] Address [address] [place] [address] Care Team Providers Care Mailing Jogger Name Role Phone Moris Yu MD Primary Care Provider Jose Cruz Hahn [phone] Allergies Allergen (clinical drug ingredient) Drug/Non Drug [...] Problem Status W/U Status Risk Notes Problem [id number] Encounter for screening for malignant neoplasm of colon (Z12.11) Active confirmed Problem 981684267 Anemia in other chronic diseases classified elsewhere (D63.8) Active confirmed Problem 64145128 Other fatigue (R53.83) Active confirmed Problem 489367914289522 Preprocedural examination (Z01.818) Active confirmed Problem 561246659681044 Aspirin long-ter m use (Z79.82) Active confirmed Problem 162947703 Hx of adenomatou s colonic polyps (Z86.010) Active confirmed Problem 63262550 Diarrhea, unspecified type (R19.7) Active confirmed Plan Of Treatment Future Test Test Name Order Date UPPER GI ENDOSCOPY 04/23/2013 COLONOSCOPY 04/23/2013 COLONOSCOPY 07/27/2018 Insurance Providers Payer Name Payer Address Payer Phone Subscriber Number Group Number Insured Name Patient Relationship to Insured Coverage Start Date Coverage End Date MEDICARE OF [place] [address] [place] [address] [phone] [id number] ALMA LAGOS Self - patient is the insured [employer] [address] [place] [address] [id number] ALMA LAGOS Self - patient is the [...] esophagitis nor Simmons's, small hiatal hernia Denies MD,DM,CVA,Renal disease Coronary artery disease--2 s tents placed in 08/2014--no MD--has tanner--Dr. Hopper COPD EGD--04/2013--esophageal ring was dilated with an 18mm balloon--no esophagitis, small hiatal hernia Colonoscopy--04/2013--small t ubular adenomas, diverticulosis, internal hemorrhoids Surgical History Surgery Date(Month/Year) Scalene node bx Hand surgery-right Hernia repair Basal cell cancer removal
[2024-10-11 11:56] LABS: Anion Gap 13 (12-20); Blood Urea Nitrogen 17 mg/dL (9-16); Calcium 8.9 mg/dL (8.4-10.2); Carbon Dioxide 20 mmol/L (22-29); Chloride 109 mmol/L (96-108); Estimated Glomerular Filt Rate 46; Potassium 4.3 mmol/L (3.3-5.1); Sodium 138 mmol/L (135-145)
== END 2024-10-11 10:40 | disposition home or self-care (01) ==
LOC: HO.LAB 10:39
PROVIDERS: PCP Internal Medicine; Visit Provider Internal Medicine Hypertension Specialist
DX: I10 Essential (primary) hypertension (principal); N17.9 Acute kidney failure, unspecified
CPT/HCPCS: 36415; 80048

== ENCOUNTER 2024-10-17 14:33 | Outpatient (AMB) | payer MEDICARE, OTHER, SELFPAY ==
--- OUTSIDE RECORDS SUMMARY | 2024-10-10 06:01 | XMS_ITS ---
Author Organization Moris Yu MD Address [address] [place] [phone] Care Team Providers Care Short Order Cook Name Role Phone Moris Yu Primary Care Provider REASON FOR VISIT [facility] Lab bill Encounters Encounter Location Date Provider Diagnosis Moris Yu MD [address] [place] [address] [place] [phone] 10/10/2024 Moris Yu Plan Of Treatment Next Appt Details Provider Name:Moris Wiggins iejosé, 03/06/2025 08:00:00 AM, [address] [place] [address], Suite [facility], [place], [place], [phone], Provider Name:Moris Wiggins iejosé, 03/13/2025 02:30:00 PM, [address] [place] [address], [address] [place] [address], [phone], Progress Notes * Erasmo QUEVEDO BDOB: [birth year] (79 yo M)Acc No.[id number]:10/10/2024 Patient: Erasmo JUAREZ :1945 A ge:79 Y S ex:Male Address:[address] [place] [address] * * Date:
--- OUTSIDE RECORDS SUMMARY | 2024-10-17 14:38 | XMS_ITS | Clinical Summary ---
Author Organization [facility] Address [address] [place] [address] Phone Care Team Providers Care Latex Foam Worker Name Role Phone Moris Yu MD Primary Care Provider [phone] Allergies Active Allergy Reactions Criticality Noted Date [...] [facility] Care Teams Latex Foam Worker Relationship Specialty Start Date End Date Moris Yu MD [address] [place] [address] PCP - General Internal Medicine 08/14/20
--- OUTSIDE RECORDS SUMMARY | 2024-10-17 14:38 | XMS_ITS | Encounter Summary ---
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 Procedures NC PET/CT Cardiac Sarcoid PET/SPECT NC SPECT MYOCARDIAL VIABILITY Joon Hopper MD Phone: tel: fax: Referral ID Status Reason Start Date Expiration Date Visits Re quested Visits Authorized [id number] Closed 08/12/2021 08/12/2022 1 1 Encounter Details Date Type Department Care Team (Late st Contact Info) Description 08/12/2021 Ancillary Orders [facility] Nuclear Medicine [address] [place] [address] Joon Hopper MD [address] [place] [address] Sarcoidosis; 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 It is not the complete legal health record.[facility]
--- OUTSIDE RECORDS SUMMARY | 2024-10-17 14:39 | XMS_ITS | Clinical Summary ---
Author Organization [facility] Address [address] [place] [address] Care Team Providers Care Rockboard Lather Name Role Phone Moris Yu MD Primary [...] mg by nebulization daily. 0 Active Tiotropium [place] Monohydrate (SPIRIVA RESPIMAT) 2.5 MCG/ACT AERS Inhale [...] this topic Medical Devices Implanted Type Area Mechanic Foreman Device Identifier Shelf Expiration Date Model / Serial / Lot Shell Trident Ii F 58mm 5 Screw Hole Cluster Tritanium - [id number] - [id number] Implanted:Qty: 1 on 08/29/2019 by Ron Sanchez MD at [facility] Right: Hip [employer] [facility] [id number] 12/24/2023 702-04-58F / / [id number] Screw Trident Ii 30mm 6.5mm Low Profile Hexagonal Bone - 748544 - [id number] Implanted:Qty: 1 on 08/29/2019 by Ron Sanchez MD at [facility] Right: Hip [employer] [facility] [id number] 01/08/2024 4427-9032 / / 33TH Insert Trident 10d F 36mm X3 Acetabular Hip - 022192 - [id number] Implanted:Qty: 1 on 08/29/2019 by Ron Sanchez MD at [facility] Right: Hip [employer] [facility] [id number] 01/14/2024 623-10-36F / / [id number] Screw Trident Ii 30mm 6.5mm Low Profile Hexagonal Bone - 507434 - [id number] Implanted:Qty: 1 on 08/29/2019 by Ron Sanchez MD at [facility] Right: Hip [employer] [facility] [id number] 12/10/2023 4398-4611 / / [id number] Stem Hip Neck Angle 127 Degree Accolade Ii Sz6 - 015065 - [id number] Implanted:Qty: 1 on 08/29/2019 by Ron Sanchez MD at [facility] Right: Hip [employer] [facility] [id number] 10/04/2022 1650-0260 / / [id number] Head V40 -5mm 36mm Delta Femoral Hip - 020451 - [id number] Implanted:Qty: 1 on 08/29/2019 by Ron Sanchez MD at [facility] Right: Hip [employer] [facility] [id number] 07/31/2024 6570-0-036 / / [id number] Advance Directives For more information, please contact: [phone] Latest Code Status on File Code Status [...] way: discussion with patient . Care Teams Rockboard Lather Relationship Specialty Start Date End Date Moris Yu MD [address] [place] [address] PCP - General Internal Medicine 06/26/19
--- OUTSIDE RECORDS SUMMARY | 2024-10-17 14:39 | XMS_ITS | Patient Health Record ---
Author Organization [facility] Address [address] [place] [address] Care Team Providers Care Beef Cattle Farm Manager Name Role Phone Moris Yu MD Primary Care Provider Jose Cruz Hahn [phone] Allergies Allergen (clinical drug ingredient) Drug/Non Drug [...] Problem Status W/U Status Risk Notes Problem [id number] Encounter for screening for malignant neoplasm of colon (Z12.11) Active confirmed Problem 911214465 Anemia in other chronic diseases classified elsewhere (D63.8) Active confirmed Problem 32312646 Other fatigue (R53.83) Active confirmed Problem [id number] Preprocedural examination (Z01.818) Active confirmed Problem [id number] Aspirin long-ter m use (Z79.82) Active confirmed Problem 288120050 Hx of adenomatou s colonic polyps (Z86.010) Active confirmed Problem 36962943 Diarrhea, unspecified type (R19.7) Active confirmed Plan Of Treatment Future Test Test Name Order Date UPPER GI ENDOSCOPY 04/23/2013 COLONOSCOPY 04/23/2013 COLONOSCOPY 07/27/2018 Insurance Providers Payer Name Payer Address Payer Phone Subscriber Number Group Number Insured Name Patient Relationship to Insured Coverage Start Date Coverage End Date MEDICARE OF [place] [address] [place] [address] [id number] ALMA LAGOS Self - patient is the insured [employer] [address] [place] [address] [phone] [id number] ALMA LAGOS Self - patient is the [...] esophagitis nor Simmons's, small hiatal hernia Denies MT,DM,CVA,Renal disease Coronary artery disease--2 s tents placed in 08/2014--no MT--has tanner--Dr. Hopper COPD EGD--04/2013--esophageal ring was dilated with an 18mm balloon--no esophagitis, small hiatal hernia Colonoscopy--04/2013--small t ubular adenomas, diverticulosis, internal hemorrhoids Surgical History Surgery Date(Month/Year) Scalene node bx Hand surgery-right Hernia repair Basal cell cancer removal"
--- OUTSIDE RECORDS SUMMARY | 2024-10-17 14:39 | XMS_ITS | Clinical Summary ---
Author Organization [facility] it Address [address] [place] [address] Care Team Providers Care Analytical Scientist Name Role Phone Moris Yu MD Primary [...] Asthma 11/08/2016 DX:Asthma Interstitial lung disease ([facility] V24, [facility] V28) 11/08/2016 DX:Interstitial lung disease (HCC) Pulmonary sarcoidosis ([facility] V24) 11/24/2016 DX:Pulmonary sarcoidosis (HCC) Seasonal allergic rhinitis 11/24/2016 DX:Se asonal allergic rhinitis Nephrolithiasis 03/17/2017 DX:Nephrolithias is; COMMENT: 06/29/2015 Hyperlipidemia 04/20/2017 DX:Hyperlipidemi a Asthma DX:Asthma Hypertension DX:Hypertension Kidney damage DX:Kidney damage Osteoarthritis DX:Osteoarthriti s Sarcoidosis, lung ([facility] V24) DX:Sarcoidosis, lung (HCC) PVC [...] this topic Medical Devices Implanted Type Area Export Packer Device Identifier Shelf Expiration Date Model / Serial / Lot Shell Trident Ii F 58mm 5 Screw Hole Cluster Tritanium - [id number] Implanted:Qty: 1 on 08/29/2019 by Ron Sanchez MD Right: Hip [employer] [id number] 12/24/2023 702-04-58F / / [id number] Screw Trident Ii 30mm 6.5mm Low Profile Hexagonal Bone - [id number] Implanted:Qty: 1 on 08/29/2019 by Ron Sanchez MD Right: Hip [employer] [id number] 01/08/2024 1088-6006 / / 33TH Insert Trident 10d F 36mm X3 Acetabular Hip - [id number] Implanted:Qty: 1 on 08/29/2019 by Ron Sanchez MD Right: Hip [employer] [id number] 01/14/2024 623-10-36F / / [id number] Screw Trident Ii 30mm 6.5mm Low Profile Hexagonal Bone - [id number] Implanted:Qty: 1 on 08/29/2019 by Ron Sanchez MD Right: Hip [employer] [id number] 12/10/2023 7731-8524 / / [id number] Stem Hip Neck Angle 127 Degree Accolade Ii Sz6 - [id number] Implanted:Qty: 1 on 08/29/2019 by Ron Sanchez MD Right: Hip [employer] [id number] 10/04/2022 2340-1234 / / [id number] Head V40 -5mm 36mm Delta Femoral Hip - [id number] Implanted:Qty: 1 on 08/29/2019 by Ron Sanchez MD Right: Hip [employer] [id number] 07/31/2024 6570-0-036 / / [id number] Care Teams Analytical Scientist Relationship Specialty Start Date End Date Moris Yu MD PCP - General Internal Medicine 01/24/17
[2024-10-17 14:47] VITALS: BP 104/52; PULSE 81; O2SAT 95; BMI 27.8
--- NOTE | 2024-10-17 14:47 | HO.NEPHOV ---
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 Required: No Accompanied by: Spouse Allergies gadobenic acid (Multihance) Allergy (Severe, Verified 10/17/24 14:49) Rash azithromycin (From ZITHROMAX Z-JOYCE) Allergy (Intermediate, Verified 10/17/24 14:49) HIVES Iodinated Contrast Media (IV CONTRAST) Allergy (Intermediate, Verified 10/17/24 14:49) HIVES Penicillins Allergy (Mild, Verified 10/17/24 14:49) RASH Medication List - Last Reconciled 10/17/24 by Mau Hodge MD allopurinol 100 mg PO DAILY 90 days apixaban (Eliquis) 5 mg PO BID atorvastatin 80 mg PO DAILY brimonidine 0.1% (Alphagan P) 1 drp ophthalmic (eye) BID cefuroxime axetil 250 mg PO BID 5 days dronedarone (Multaq) 400 mg PO Q12H 90 days finasteride 5 mg PO DAILY 90 days mometasone-formoterol 200-5 mcg/actuation (Dulera) 1 puff inhalation BID montelukast 10 mg PO DAILY@1200 potassium citrate ER 10 mEq PO BID 90 days tamsulosin 0.4 mg PO BEDTIME tiotropium bromide 2.5 mcg/actuation (Spiriva Respimat) 2 inhalations inhalation DAILY 90 days HPI Comments Details: Elderly male with pertinent history of paroxysmal atrial flutter on Eliquis, BPH, 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 Underwent cystoscopy and stent placement. Stent was removed in October 2023. Blood pressure has been relatively low. Bisoprolol has been cut by 50% by Cardiology. He was accompanied by his today. He is still has relatively low blood pressure. He has been able to maintain fluid intake. No nausea or vomiting. No chest pain no palpitation. No urinary symptoms at present. Recent creatinine was 1.9 as of October 23 which is higher than the baseline. 03/26/2024. Seen by Urology recently still has a stone. Waiting for a follow up CT scan followed by a possible procedure. 06/20/24 Accompanied by family Has diarrhea. Lost weight Not feeling well Waiting for urological procedure in 10/17/24 The patient is a 79-year-old male presenting for a follow-up on kidney stones and blood pressure management. The patient has low blood pressure, with recent readings around 104 mmHg, but no symptoms like lightheadedness. No changes in medications and no urination issues reported. Renal ultrasound a month ago showed small kidney stones without obstruction. Creatinine improved to 1.47 mg/dL, and kidney function increased from 36 to 46 over eight months. DIAGNOSTIC RESULTS: - Renal ultrasound: Small kidney stones, no obstruction - Creatinine: 1.47 mg/dL - Kidney function: Improved from 36 to 46 PFSH Medical History Pulmonary nodules Chronic restrictive lung disease Chronic renal disease Nonsustained ventricular tachycardia PVCs (premature ventricular contractions) CAD (coronary artery disease) Dyspnea Chronic allergic rhinitis Asthma Sarcoidosis Surgical History H/O hernia repair Stented coronary artery Family History Father Atrial fibrillation Mother Atrial fibrillation Other Asthma Social History Household Members: Spouse Housing: House Do you presently have visiting nurse or other home services: No Alcohol intake: never Patient Tobacco Use Status: Never used Tobacco Tobacco use type: Cigar e-Cigarette/Vaping Use: Never Used Second Hand Smoke Exposure: No Advance Directives Date on File: 09/14/23 service: No Physical Exam Vital Signs: Last Vital Signs Pulse 81 10/17/24 14:47 BP 104/52 L 10/17/24 14:47 Pulse Ox 95 10/17/24 14:47 Oxygen Delivery Method Room Air 10/17/24 14:47 BMI result Body Mass Index 27.8 Currently in a wheelchair comfortable. Neck supple no JVD. Mucosa dry. Lungs entry equal. Heart has been steroid no gallop Abdomen soft nontender Extremities no edema. Results Reviewed Nephrology Results: Sodium, (135-145) 138 mmol/L 10/11/24 Potassium, (3.3-5.1) 4.3 mmol/L 10/11/24 Chloride, (96-108) 109 mmol/L H 10/11/24 Carbon Dioxide, (22-29) 20 mmol/L L 10/11/24 BUN, (9-16) 17 mg/dL H 10/11/24 Creatinine, (0.5-1.4) 1.47 mg/dL H 10/11/24 Calcium, (8.4-10.2) 8.9 mg/dL 10/11/24 Renal US 09/10/24 Assessment & Plan Assessment & Plan (1) ETELVINA (acute kidney injury): Comment: Due to obstructive uropathy. Code(s): N17.9 - Acute kidney failure, unspecified Category: Medical Plan: Renal function improved after leading obstruction. Off Losartan Cr is down to 1.47 Encouraged him to increase fluid intake. (2) Bilateral kidney stones: Code(s): N20.0 - Calculus of kidney Category: Medical Plan: Increase p.o. fluid intake Continue with lemonade Low-sodium diet. (3) HTN (hypertension): Code(s): I10 - Essential (primary) hypertension Category: Medical Plan: Blood pressure is relatively low Continue to hold losartan. Plan Blood test in 6 months RTC in 1 yr instead of 6 months ( family request) Orders: Orders Basic Metabolic Panel 6 Months N17.9 - Acute kidney failure, unspecified, N20.0 - Calculus of kidney Coding Level of Care Code Est Pt Level 4 (71232) Diagnoses ETELVINA (acute kidney injury) N17.9 Bilateral kidney stones N20.0 HTN (hypertension) I10
== END 2024-10-17 15:03 | disposition home or self-care (01) ==
LOC: HO.HKA 14:33
PROVIDERS: PCP Internal Medicine; Visit Provider Internal Medicine Hypertension Specialist
DX: N17.9 Acute kidney failure, unspecified (principal); N20.0 Calculus of kidney; I10 Essential (primary) hypertension
CPT/HCPCS: 99214

== ENCOUNTER → 2024-10-17 14:33 | Outpatient (BNVA) | payer MEDICARE, OTHER, SELFPAY | PROVIDERS: PCP Internal Medicine; Visit Provider Internal Medicine Hypertension Specialist | DX: N20.0 Calculus of kidney (principal); N17.9 Acute kidney failure, unspecified; I10 Essential (primary) hypertension | CPT/HCPCS: 99212 ==

== ENCOUNTER 2024-12-02 15:20 | Outpatient (AMB) | payer MEDICARE, OTHER, SELFPAY ==
--- OUTSIDE RECORDS SUMMARY | 2024-04-05 06:15 | XMS_ITS ---
Author Organization Moris Yu MD Address [address] [place] [phone] Care Team Providers Care Supervisor Chassis Assembly Name Role Phone Moris Yu Primary Care Provider REASON FOR VISIT UGI orders Encounters Encounter Location Date Provider Diagnosis Moris Yu MD [address] [place] [address] [place] [address] [phone] 04/05/2024 Moris Yu Abnormal computed tomography of abdomen and pelvis R93.5 Assessments Encounter Date Diagnosis (ICD Code) Assessment Notes Treatment Notes Treatment Clinical Notes Section Notes 04/05/2024 Abnormal computed tomography of abdomen and pelvis (ICD-10 - R93.5) Plan Of Treatment Pending Test Test Name Order Date XR GI SERIES 04/05/2024 Next Appt Details Provider Name:Moris delgadillo, 03/06/2025 08:00:00 AM, [address] [place] [address], [address], [phone], Provider Name:Moris delgadillo, 03/13/2025 02:30:00 PM, [address] [place] [address], [address] [place] [address], [phone], Progress Notes * Erasmo QUEVEDO BDOB: [birth year] (78 yo M)Acc No.[id number]:04/05/2024 Patient: Gamal GARCIAErasmo :1945 A ge:78 Y S ex:Male Address:[address], [address] [place] [phone] Subjective: * Chief Complaints: * U GI orders * Medical History: * Surgical History: * Hospitalization/Major Diagno stic Procedure: * Medications: Objective: * Vitals: * Physical Examination: Assessment: * Assessment: 1. A bnormal computed tomography of abdomen and pelvis - R93.5 Plan: * Treatment: * Procedure Codes: * true * Date: Generated for Marie vázquez/Jacob/Susansmitting on: 1 05:41 PM EDT
--- OUTSIDE RECORDS SUMMARY | 2024-06-18 05:01 | XMS_ITS ---
Author Organization Moris Yu MD Address [address] [place], [place] [phone] Care Team Providers Care Zipper Measurer Name Role Phone Moris Yu Primary Care Provider Results Component Value Reference Range Notes Comprehensive Met. Panel Reviewed date:06/19/2024 12:33:30 PM Interpretation: Performing Lab:[facility], [address] [place] [phone] Notes/Report: Sodium 138 135-145 mmol/L Potassium 4.1 3.3-5.1 mmol/L Chloride 110 96-108 mmol/L Carbon Dioxide 18 22-29 mmol/L Anion Gap 14 12-20 Blood Urea Nitrogen 15 9-16 mg/dL Creatinine 1.53 0.5-1.4 mg/dL Estimated Glomerular Filt Rate 44 Chronic Kidney Disease: Estimated GFR < 60 mL/min/1.73m2 Severe Kidney Disease: Estimated GFR < 15 mL/min/1.73m2 Glucose Random 112 60-115 mg/dL Calcium 9.1 8.4-10.2 mg/dL Bilirubin Total 1.0 0.0-1.0 mg/dL Aspartate Amino Transferase 21 5-37 U/L Alanine Aminotransferase 7 0-40 U/L Total Protein 6.9 6.5-8.0 g/dL Albumin Level 3.2 3.5-5.0 g/dL Alkaline Phosphatase 97 39-117 U/L GI Panel Reviewed date:06/19/2024 06:27:16 PM Interpretation: Performing Lab:[address] [address] Notes/Report: Campylobacter Not Detected Not Detect. Plesiomonas [...] viability. Additionally, some organisms may be carried asymptomatically. Detection of organism targets does not imply [...] is performed by Multiplexed PCR, utilizing the Jamgle Array. REASON FOR VISIT Diarrhea Encounters Encounter Location Date Provider Diagnosis Moris Yu MD [address] [place] [address] [place] [phone] 06/18/2024 Moris Yu Diarrhea R19.7 Assessments Encounter Date Diagnosis (ICD Code) Assessment Notes Treatment Notes Treatment Clinical Notes Section Notes 06/18/2024 Diarrhea (ICD-10 - R19.7) Order made and faxed to Patient Reg. patient's notified. Patient's will call and make appointment with Dr Srivastava. Plan Of Treatment Treatment Notes Assessment Notes Diarrhea Order made and faxed to Patient Reg. patient's notified. Patient's will call and make appointment with Dr Srivsatava. Pending Test Test Name Order Date CBC w DIFF 06/18/2024 Next Appt Details Provider Name:Moris Wiggins ier, 03/06/2025 08:00:00 AM, [address] [place] [address], [address], [place], [place], [phone], Provider Name:Moris Wiggins ier, 03/13/2025 02:30:00 PM, [address] [facility], [address], [place], [place], [phone], Progress Notes * Erasmo QUEVEDO BDOB: (79 yo M)Acc No.[id number]:06/18/2024 Patient: Gamal Erasmo GARCIA :1945 A ge:79 Y S ex:Male Address:[place] [address] [place] [phone] Subjective: * Chief Complaints: * D iarrhea * Medical History: * Surgical History: * Hospitalization/Major Diagno stic Procedure: * Medications: Objective: * Vitals: * Physical Examination: Assessment: * Assessment: 1. D iarrhea - R19.7 Plan: * Treatment: * Procedure Codes: * true * Date: Generated for Marie vázquez/Jacob/eTransmitting on: 05:42 PM EDT
--- OUTSIDE RECORDS SUMMARY | 2024-09-09 04:00 | XMS_ITS ---
Author Organization Moris Yu MD Address [address] [place], [place] [id number] Care Team Providers Care Market Research Coordinator Name Role Phone Moris Yu Primary Care Provider [phone] Results Component Value Reference Range Notes Liver Panel Reviewed date:09/09/2024 12:51:06 PM Interpretation: Performing Lab:[facility], [address] [place] [id number] Notes/Report: Bilirubin Total 0.8 0.0-1.0 mg/dL Bilirubin Direct 0.3 0.0-0.5 mg/dL Aspartate Amino Transferase 35 5-37 U/L Alanine Aminotransferase 12 0-40 U/L Total Protein 6.4 6.5-8.0 g/dL Albumin Level 3.2 3.5-5.0 g/dL Alkaline Phosphatase 67 39-117 U/L Lipid Panel with Reflex Reviewed date:09/09/2024 12:54:45 PM Interpretation: Performing Lab:[facility], [address] [place] [id number] Notes/Report: Triglycerides 75 <150 mg/dL Desirable Triglyceride: less than 150 mg/dL Borderline High Triglyceride 150-199 mg/dL High Triglyceride: 200-499 mg/dL Very High Triglyceride: greater than or equal to 5OO mg/dL Cholesterol 104 <200 mg/dL Desirable Cholesterol: less than 200 mg/dL Borderline High Cholesterol: 200-239 mg/dL High Cholesterol: greater than 239 mg/dL LDL Cholesterol Calculated 51 <100 mg/dL Desirable LDL: less than 100 mg/dL Near Optimal/Above Optimal LDL: 110-129 mg/dL Borderline High LDL: 130-159 mg/dL High LDL: 160-189 mg/dL Very High LDL: greater than or equal to 190 mg/dL HDL Cholesterol 38 >40 mg/dL Desirable HDL: greater than 40 mg/dL Note: This HDL assay may give artificially low results in patients with liver disease. REASON FOR VISIT FASTING LIPIDS Encounters Encounter Location Date Provider Diagnosis Moris Yu MD [address] [place] [address] [place] [phone] 09/09/2024 Moris Yu Pure hypercholestero lemia E78.00 Assessments Encounter Date Diagnosis (ICD Code) Assessment Notes Treatment Notes Treatment Clinical Notes Section Notes 09/09/2024 Pure hypercholesterolemia (ICD-10 - E78.00) Plan Of Treatment Next Appt Details Provider Name:Moris Wiggins iejosé, 03/06/2025 08:00:00 AM, [address] [place] [address], Suite [facility], [place], [place], [phone], Provider Name:Moris delgadillo, 03/13/2025 02:30:00 PM, [address] [place] [address], Suite [facility], [place], [place], [phone], Progress Notes * Erasmo QUEVEDO BDOB: [birth year] (79 yo M)Acc No.[id number]:09/09/2024 Progress Note Patient: Erasmo JUAREZ Provider: Thomas Yu MD :1945 A ge:79 Y S ex:Male Date:09/09/2024 Address:[address] Subjective: * Chief Complaints: * 1 . FASTING LIPIDS. * Medical History: Objective: * Vitals: Assessment: * Assessment: 1. P ure hypercholesterolemia - E78.00 (Primary) Plan: * Treatment: * Procedure Codes: 3 6415 VENIPUNCT, ROUTINE* * * The named appointment provid er may or may not be the originator of this progress note, and it is not deemed complete until electronically signed by the appointment provider. Sign off status: Pending * Provider: Thomas Yu MD Date: 0 09/09/2024 Generated for Marie vázquez/Faxing/eTransmitting on: 1 05:42 PM EDT
--- OUTSIDE RECORDS SUMMARY | 2024-09-13 10:00 | XMS_ITS ---
Author Organization Moris Yu MD Address [address] [place] [phone] Care Team Providers Care Commercial Marketing Specialist Name Role Phone Moris Yu Primary Care [...] hives Drug Allergy Active REASON FOR VISIT 6 MO F/U, Accompanied by Medications Medication SIG (Take, Route, Frequency, Duration) Notes Start Date End Date Status Ventolin HFA 108 2 puffs as needed Inhalation every 4 hrs Not-Takin g Cialis 10 MG 1 tablet Orally for 30 day(s) Not-Taking Albuterol Sulfate 0.63 MG/3ML 3 ml as needed Inhalation Three times a day for 90 days 10/23/2014 Not-Taking Alphagan P 0.1 % 1 drop into affected eye Ophthalmic every 8 hrs Not-Taking Omeprazole 20 MG TAKE 1 CAPSULE DAILY Orally Once a day for 90 days Not-Taking Albuterol Sulfate HFA 108 (90 Base) MCG/ACT 1 puff as needed Inhalation every 4 hrs 07/09/2021 Not-Takin g Naproxen 250 MG 1 tablet with food o r milk Orally Twice a day for 30 day(s) Not-Taking Escitalopram Oxalate 10 MG 1 tablet Orally Once a day for 30 day(s) 07/08/2022 Not-Taking Dymista 137-50 MCG/ACT 1 puff in each no stril Nasally Twice a day Not-Taking Budesonide (Inhalation) once a day, QOD Not-Taking Doxycycline Hyclate 100 MG 1 capsule Orally Once a day for 10 day(s) Not-Taking Prevagen 10 MG as directed Orally Not-Taking Bisoprolol Fumarate 5 MG 1 tablet Orally Once a day for 30 day(s) Not-Taking Losartan Potassium 25 MG 1 tablet Orally Once a day for 30 day(s) Not-Taking Montelukast Sodium 10 mg TAKE 1 TABLET D AILY IN THE EVENING Active Dulera 100-5 MCG/ACT 2 puffs Inhalation Twice a day Active Atorvastatin Calcium 80 MG take 1 tablet daily Orally Once a day Active Allopurinol 100 MG 1 tablet Orally Once a day for 30 day(s) Active Eliquis 5 MG 1 tablet Orally Twic e a day Active Spiriva Respimat 2.5 MCG/ACT 2 puffs Inhalation Once a day Active Potassium Citrate ER 10 MEQ (1080 MG) 1 tablet with meals Orally Twice a day Active Finasteride 5 MG 1 tablet Orally Once a day for 30 day(s) Active Multaq 400 MG 1 tablet with meals Orally Twice a day for 30 day(s) Active Xelpros 0.005 % 1 null into affected eye in the evening Ophthalmic Once a day Active Vital Signs Blood pressure systolic 94 mm Hg 09/14/19 25 Blood pressure diastolic 56 mm Hg 025 Height 70 in 09/13/2024 Weight 196 lbs 09/13/2024 BMI 28.12 kg/m2 09/13/2024 weight is down 26 pounds [facility] 03-08-24 Encounters Encounter Location Date Provider Diagnosis Moris Yu MD [address] [place] [address] [place] [phone] 09/13/2024 Moris Yu Sarcoidosis D86.9 ; Chronic congestive heart failure, unspecified heart failure type I50.9 and Other ventricular tachycardia I47.29 Assessments Encounter Date Diagnosis (ICD Code) Assessment Notes Treatment Notes Treatment Clinical Notes Section Notes 09/13/2024 Sarcoidosis (ICD-10 - D86.9) seems to be getting better 09/13/2024 Chronic congestive heart failure, unspecified heart failure type (ICD-10 - I50.9) stable 09/13/2024 Other ventricular tachycardia (ICD-10 - I47.29) is being evaluated by cardiology Plan Of Treatment Treatment Notes Assessment Notes Sarcoidosis seems to be getting better Chronic congestive heart singh lure, unspecified heart failure type stable Other ventricular tachycardia is being e valuated by cardiology Next Appt Details Provider Name:Moris Wiggins ier, 03/06/2025 08:00:00 AM, [address], [address], [place], [place], [phone], Provider Name:Moris Wiggins ier, 03/13/2025 02:30:00 PM, [address], [address], [place], [place], [phone], Progress Notes * Erasmo QUEVEDO BDOB: (79 yo M)Acc No.[id number]:09/13/2024 Progress Notes Patient: Erasmo JUAREZ Provider: Thomas Yu MD :1945 A ge:79 Y S ex:Male Date:09/13/2024 Address:[place] [address] [place], [place] [address] Subjective: * Chief Complaints: * 6 MO F/UAccompanied by * HPI: S ymptom(s): patient is a 79 yo male here for 6 month follow up visit/ had laser to remove a large stone. still with some stones left./ had runs of vtach during the procedure. * ROS: G eneral/Constitutional: Denies C hills. D enies F atigue. D enies F ever. D enies H eadache. E NT: Denies S ore throat. R espiratory: Denies C ough. D enies S hortness of breath at rest. D enies S hortness of breath with exertion. G astrointestinal: Denies A bdominal pain. A dmits D iarrhea. D enies N ausea. * Medical History: * Surgical History: * Hospitalization/Major Diagno stic Procedure: * Medications: T akingMultaq 400 MG Tablet 1 tablet with meals Orally Twice a day Finasteride 5 MG Tablet 1 tablet Orally Once a day Potassium Citrate ER 10 MEQ (1080 MG) Tablet Extended Release 1 tablet with meals Orally Twice a day Xelpros 0.005 % Emulsion 1 null into affected eye in the evening Ophthalmic Once a day Allopurinol 100 MG Tablet 1 tablet Orally Once a day Atorvastatin Calcium 80 MG Tablet take 1 tablet daily Orally Once a day Dulera 100-5 MCG/ACT Aerosol 2 puffs Inhalation Twice a day Spiriva Respimat 2.5 MCG/ACT Aerosol Solution 2 puffs Inhalation Once a day Eliquis 5 MG Tablet 1 tablet Orally Twice a day Montelukast Sodium 10 mg Tablet TAKE 1 TABLET DAILY IN THE EVENING Taking Multaq 400 MG Tablet 1 tablet with meals Orally Twice a day Taking Finasteride 5 MG Tablet 1 tablet Orally Once a day Taking Potassium Citrate ER 10 MEQ (1080 MG) Tablet Extended Release 1 tablet with meals Orally Twice a day Taking Xelpros 0.005 % Emulsion 1 null into affected eye in the evening Ophthalmic Once a day Taking Allopurinol 100 MG Tablet 1 tablet Orally Once a day Taking Atorvastatin Calcium 80 MG Tablet take 1 tablet daily Orally Once a day Taking Dulera 100-5 MCG/ACT Aerosol 2 puffs Inhalation Twice a day Taking Spiriva Respimat 2.5 MCG/ACT Aerosol Solution 2 puffs Inhalation Once a day Taking Eliquis 5 MG Tablet 1 tablet Orally Twice a day Taking Montelukast Sodium 10 mg Tablet TAKE 1 TABLET DAILY IN THE EVENING Not-Taking/PRNLosartan Potassium 25 MG Tablet 1 tablet Orally Once a day Bisoprolol Fumarate 5 MG Tablet 1 tablet Orally Once a day Prevagen 10 MG Capsule as directed Orally Doxycycline Hyclate 100 MG Capsule 1 capsule Orally Once a day Dymista 137-50 MCG/ACT Suspension 1 puff in each nostril Nasally Twice a day Escitalopram Oxalate 10 MG Tablet 1 tablet Orally Once a day Naproxen 250 MG Tablet 1 tablet with food or milk Orally Twice a day Albuterol Sulfate HFA 108 (90 Base) MCG/ACT Aerosol Solution 1 puff as needed Inhalation every 4 hrs Budesonide (Inhalation) once a day, QOD Omeprazole 20 MG Capsule Delayed Release TAKE 1 CAPSULE DAILY Orally Once a day Alphagan P 0.1 % Solution 1 drop into affected eye Ophthalmic every 8 hrs Albuterol Sulfate 0.63 MG/3ML Nebulization Solution 3 ml as needed Inhalation Three times a day Cialis 10 MG Tablet 1 tablet Orally Ventolin HFA 108 Aerosol Solution 2 puffs as needed Inhalation every 4 hrs Medication List reviewed and reconciled with the patientNot-Taking/PRN Losartan Potassium 25 MG Tablet 1 tablet Orally Once a day Not-Taking/PRN Bisoprolol Fumarate 5 MG Tablet 1 tablet Orally Once a day Not-Taking/PRN Prevagen 10 MG Capsule as directed Orally Not-Taking/PRN Doxycycline Hyclate 100 MG Capsule 1 capsule Orally Once a day Not-Taking/PRN Dymista 137-50 MCG/ACT Suspension 1 puff in each nostril Nasally Twice a day Not-Taking/PRN Escitalopram Oxalate 10 MG Tablet 1 tablet Orally Once a day Not-Taking/PRN Naproxen 250 MG Tablet 1 tablet with food or milk Orally Twice a day Not-Taking/PRN Albuterol Sulfate HFA 108 (90 Base) MCG/ACT Aerosol Solution 1 puff as needed Inhalation every 4 hrs Not-Taking/PRN Budesonide (Inhalation) once a day, QOD Not-Taking/PRN Omeprazole 20 MG Capsule Delayed Release TAKE 1 CAPSULE DAILY Orally Once a day Not-Taking/PRN Alphagan P 0.1 % Solution 1 drop into affected eye Ophthalmic every 8 hrs Not-Taking/PRN Albuterol Sulfate 0.63 MG/3ML Nebulization Solution 3 ml as needed Inhalation Three times a day Not-Taking/PRN Cialis 10 MG Tablet 1 tablet Orally Not-Taking/PRN Ventolin HFA 108 Aerosol Solution 2 puffs as needed Inhalation every 4 hrs Medication List reviewed and reconciled with the patient * Allergies: P enicillin G Potassium: rashDoxycycline Calcium: hivesgadalinium: hivesGadavist: hivesZithromax Z-Jhonny: severe diarrheayes[Allergies Verified] Objective: * Vitals: H t: 70, Wt: 196, BMI:28.12, BP:94/56, Wt-k.91. weight is down 26 pounds since 03-08-24. * P ast Orders: L ab:Liver Panel (Order Date - 09/09/2024) (Collection Date & Time - 09/09/2024 08:00 AM) Value Reference Range Bilirubin Total 0.8 0.0-1.0 - mg/dL Bilirubin Direct 0.3 0.0-0.5 - mg/dL Aspartate Amino Transferase 35 5-37 - U/L Alanine Aminotransferase 12 0-40 - U/L Total Protein 6.4 L 6.5-8.0 - g/dL Albumin Level 3.2 L 3.5-5.0 - g/dL Alkaline Phosphatase 67 39-117 - U/L L ab:Lipid Panel with Reflex (Order Date - 09/09/2024) (Collection Date & Time - 09/09/2024 08:00 AM) Value Reference Range Triglycerides 75 <150 - mg/dL Cholesterol 104 <200 - mg/dL LDL Cholesterol Calculated 51 <100 - mg/dL HDL Cholesterol 38 L >40 - mg/dL * Examination: G eneral Examination: GENERAL APPEARANCE: a lert, well hydrated, in no distress.? HEAD: n ormocephalic. SKIN: g ood turgor. HEART: r egular rate and rhythm, no murmurs, rubs, gallops.? LUNGS: c lear to auscultation bilaterally, good air movement, no wheezes, rales, rhonchi. EXTREMITIES: n o edema. Assessment: * Assessment: 1. S arcoidosis - D86.9 (Primary) 2 . C hronic congestive heart failure, unspecified heart failure type - I50.9 3 . O ther ventricular tachycardia - I47.29? Plan: * Treatment: 2. C hronic congestive heart failure, unspecified heart failure type Notes: stable 3. O ther ventricular tachycardia Notes: is being evaluated by cardiology * Procedure Codes: * * Sign off status: Completed true * Provider: Thomas Yu MD Date: 0 09/13/2024 Generated for Marie vázquez/Jacob/eTtitasmitting on: 1 05:42 PM EDT History and Physical Notes * HPI (History of Present Illness) Category Sub-Category Detail Notes Category Not es Symptom(s) patient is a 79 yo male here for 6 month follow up visit/ had laser to remove a large stone. still with some stones left./ had runs of vtach during the procedure Examination Category Sub-Category Detail Notes Category Not es General Examination GENERAL APPEARANCE: alert, w ell hydrated, in no distress HEAD: normocephalic HEART: regular rate and rhy thm, no murmurs, rubs, gallops LUNGS: clear to auscultatio n bilaterally, good air movement, no wheezes, rales, rhonchi SKIN: good turgor EXTREMITIES: no edema
--- OUTSIDE RECORDS SUMMARY | 2024-10-10 06:01 | XMS_ITS ---
Author Organization Moris Yu MD Address [address] [place] [phone] Care Team Providers Care Axminster Rug Setter Name Role Phone Moris Yu Primary Care Provider [phone] REASON FOR VISIT [facility] [place] bill Encounters Encounter Location Date Provider Diagnosis Moris Yu MD [address] [place] [address] [place] [phone] 10/10/2024 Moris Yu Plan Of Treatment Next Appt Details Provider Name:Moris Wiggins ier, 03/06/2025 08:00:00 AM, [address] [place] [address], [address] [place] [address], [phone], Provider Name:Moris Wiggins ier, 03/13/2025 02:30:00 PM, [address] [place] [address], [address] [place] [address], [phone], Progress Notes * Erasmo QUEVEDO BDOB: (79 yo M)Acc No.[id number]:10/10/2024 Patient: Erasmo JUAREZ :1945 A ge:79 Y S ex:Male Address:[address] [place] [address] * true * Date: Generated for Printi ng/Faxing/eTransmitting on: 1 05:41 PM EDT
--- NOTE | 2024-12-02 15:25 | A.OFFVIS_ITS ---
Vital Signs 12/02/24 15:39 Height 5 ft 1 in Weight 200 lb 9.93 oz BMI 37.9 BP 130/76 Blood Pressure Location Lt brachial Position Sitting Pulse 73 Intake Visit Reasons: 3 mth f/up holter/ do ekg Intake Note: 3 month follow-up after holter with ekg feeling good Director Of Development And Marketing Required: No Allergies gadobenic acid (Multihance) Allergy (Severe, Verified 10/17/24 14:49) Rash azithromycin (From ZITHROMAX Z-JOYCE) Allergy (Intermediate, Verified 10/17/24 14:49) HIVES Iodinated Contrast Media (IV CONTRAST) Allergy (Intermediate, Verified 10/17/24 14:49) HIVES Penicillins Allergy (Mild, Verified 10/17/24 14:49) RASH Medication List - Last Reconciled 12/02/24 by Joon Hopper MD allopurinol 100 mg PO DAILY 90 days apixaban (Eliquis) 5 mg PO BID atorvastatin 80 mg PO DAILY dronedarone (Multaq) 400 mg PO Q12H finasteride 5 mg PO DAILY 90 days mometasone-formoterol 200-5 mcg/actuation (Dulera) 1 puff inhalation BID montelukast 10 mg PO DAILY@1200 potassium citrate ER 10 mEq PO BID 90 days tamsulosin 0.4 mg PO BEDTIME tiotropium bromide 2.5 mcg/actuation (Spiriva Respimat) 2 inhalations inhalation DAILY 90 days HPI Comments Details: Erasmo comes for follow-up, accompanied by his . He has had no worsening cardiac symptoms at this point time. He has no orthopnea, PND, leg edema. No prolonged palpitation irregular heartbeat. No lightheadedness, syncope. He is more limitations is lack of exercise activity and fall risk. He does walk around with the help of a walker. No bleeding issues or neurologic events. COUNTS INCLUDE 234 BEDS AT THE [facility] Medical History Pulmonary nodules Chronic restrictive lung disease Chronic renal disease Nonsustained ventricular tachycardia PVCs (premature ventricular contractions) CAD (coronary artery disease) Dyspnea Chronic allergic rhinitis Asthma Sarcoidosis Surgical History H/O hernia repair Stented coronary artery Family History Father Atrial fibrillation Mother Atrial fibrillation Other Asthma Social History Household Members: Spouse Housing: House Do you presently have visiting nurse or other home services: No Alcohol intake: never Patient Tobacco Use Status: Never used Tobacco Tobacco use type: Cigar e-Cigarette/Vaping Use: Never Used Second Hand Smoke Exposure: No Advance Directives Date on File: 09/14/23 service: No Review of Systems Const Denies chills, Denies fatigue, Denies fever(s), Denies frequent falls, Denies weakness, Denies weight gain and Denies weight loss ENT Denies dizziness Card Denies chest pain, Denies leg edema, Denies lightheadedness, Denies palpitations , Denies dyspnea, Denies dyspnea on exertion, Denies orthopnea and Denies other (loss of consciousness) Resp Denies cough, Denies dyspnea and Denies dyspnea on exertion GI Denies hematochezia and Denies change in stool character Musc Denies abnormal gait, Denies muscle weakness, Denies numbness, Denies radiating pain into limb and Denies tingling Neuro Denies abnormal gait, Denies dizziness, Denies frequent falls, Denies numbness, Denies tingling and Denies weakness Endo Denies fatigue and Denies palpitations Physical Exam Vital Signs: Last Vital Signs Pulse 73 12/02/24 15:39 BP 130/76 12/02/24 15:39 BMI result Body Mass Index 37.9 Const General: cooperative, healthy appearing, comfortable and no acute distress Orientation/consciousness: patient oriented x3 Neck Neck: Yes normal visual inspection Resp Effort & Inspection: normal respiratory effort Auscultation: clear to auscultation bilaterally, no rales, no rhonchi and no wheezes Cardio Rate: regular rate Rhythm: regular rhythm Heart sounds: S1 normal heart sound present, S2 normal heart sound present, Murmur heart sound present systolic mid and soft and no rubs Neuro General: patient oriented x3 Extrem General: Yes normal to inspection and No no pedal edema Psych Appearance: grossly normal Mental Status: mental status grossly normal Speech and movement: Normal speech and movement present Office Procedures EKG Details: EKG shows normal sinus rhythm with frequent PVCs with multifocal etiology with nonspecific STT wave changes [id number], Complete Assessment & Plan Assessment & Plan (1) Paroxysmal atrial flutter: Code(s): I48.92 - Unspecified atrial flutter Category: Medical Plan: Paroxysmal atrial flutter which has remained suppressed on Multaq therapy. Overall has done well with rhythm control. Continue Multaq therapy. EKGs every 3 months. Currently on full oral anticoagulation with Eliquis at 5 mg b.i.d.. Continue monitor renal function every 3 months. Being followed by Nephrology. Avoidance of stimulants was discussed. Advised to call me with new symptoms. (2) CAD (coronary artery disease): Code(s): I25.10 - Atherosclerotic heart disease of [place] coronary artery without angina pectoris Category: Medical Plan: CAD which is currently stable without any current symptoms of angina. Continue full oral anticoagulation avoid aspirin therapy to reduce bleeding risk. Continue high-intensity statin therapy with target goal LDL less than 70 mg/dL. Advised to maintain activity level as tolerated. Continue aggressive blood pressure control which is currently well optimized. (3) Cardiomyopathy: Code(s): I42.9 - Cardiomyopathy, unspecified Category: Medical Plan: Mild cardiomyopathy without overt signs of congestive heart failure. Currently not on any diuretic regimen. Continue monitor for signs and symptoms of heart failure. Most likely related to PVCs, suspected to be multifocal and therefore not a candidate for ablation. Will follow-up echocardiogram 6 months time. Has not tolerated other neurohormonal modulation. (4) Aortic stenosis: Code(s): I35.0 - Nonrheumatic aortic (valve) stenosis Category: Medical Plan: Aortic stenosis which is moderate, low-flow aortic stenosis. Continue monitor by echocardiogram. Continue aggressive vascular risk factor modifications above. No interventions required. Will follow up in the clinic in 6 months time after an echocardiogram. Thank you for allowing me to partake in his care Orders: Orders Basic Metabolic Panel Today I48.92 - Unspecified atrial flutter CA echo transthoracic complete 6 Months I35.0 - Nonrheumatic aortic (valve) stenosis Coding Level of Care Code Est Pt Level 4 (74373) Complex EM visit Add On G2211 Diagnoses Paroxysmal atrial flutter I48.92 CAD (coronary artery disease) I25.10 Cardiomyopathy I42.9 Aortic stenosis I35.0 CPT Codes EKG - CPT: 92549-[id number], Complete ([id number])
[2024-12-02 15:39] VITALS: BP 130/76; PULSE 73; BMI 37.9
--- OUTSIDE RECORDS SUMMARY | 2024-12-02 17:41 | XMS_ITS | Encounter Summary ---
Author Organization [facility] Address [address] [place] [address] [place] [address] Phone Care Team Providers Care Bench Worker Helper Name Role Phone Moris Yu MD Primary Care Provider Sebastian Patricia MD Unavailable [phone] Joon Hopper MD Unavailable [phone] Encounter Details Date Type Department Care Team (Late st Contact Info) Description 01/12/2015 Transcribe Orders [facility] Echocardiography [address] [place] [address] Doris Mac [address] [place] [address] [email or web address] Social [email or web address] Tobacco Use Types Packs/Day Years Used Date Smoking Tobacco: Never Assessed Sex and Gender Information Value Date Recorded Sex Assigned at Not on file Legal Sex Male 4:56 PM EST Gender Identity Not on file Sexual Orientation Not on file documented as of this encounter Plan of Treatment Not on file documented as of this encounter Visit Diagnoses Not on filedocumented in this encounter Care Teams Bench Worker Helper Relationship Specialty Start Date End Date Moris Yu MD [address] [place] [address] Dr Aracelis [place] [id number] PCP - General Internal Medicine 11/14/14 Sebastian Patricia MD [address] [place] [address] Dr [place] [id number] Internal Medicine 01/27/15 Joon Hopper MD [address] [place] [address] [address] [place] [address] Cardiology 01/27/15 documented as of this encounter Additional Source Comments The information contained in this document represents components of the legal health record. It is not the complete legal health record.[facility]
--- OUTSIDE RECORDS SUMMARY | 2024-12-02 17:42 | XMS_ITS | Encounter Summary ---
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 Procedures NC PET/CT Cardiac Sarcoid PET/SPECT NC SPECT MYOCARDIAL VIABILITY Joon Hopper MD Phone: tel: fax: Referral ID Status Reason Start Date Expiration Date Visits Re quested Visits Authorized [id number] Closed 08/12/2021 08/12/2022 1 1 Encounter Details Date Type Department Care Team (Late st Contact Info) Description 08/12/2021 Ancillary Orders [facility] Nuclear Medicine [address] [place] [address] Joon Hopper MD [address] [place] [id number] Sarcoidosis; 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 [...] yours, Abdulkadir Ngo M.D., Attending Physician Karlos Robleor M.D., Attending Physician Frederick Coats M.D., Cardiovascular [...] documented as of this encounter Care Teams Cloth Finishing Range Operator Chief Relationship Specialty Start Date End Date Moris Yu MD [address] [place] [address] [address] [place] [address] PCP - General Internal Medicine 11/14/14 Sebastian Patricia MD [address] [place] [address] [place] [address] Internal Medicine 01/27/15 Joon Hopper MD [address] [place] [address] Dr [facility] [place] [address] Cardiology 01/27/15 documented as of this encounter Additional Source Comments The information contained in this document represents components of the legal health record. It is not the complete legal health record.[facility]
--- OUTSIDE RECORDS SUMMARY | 2024-12-02 17:42 | XMS_ITS | Patient Health Record ---
Author Organization [facility] Address [address] [place] [address] Care Team Providers Care Gardening Manager Name Role Phone Moris Yu MD Primary Care Provider Jose Cruz Hahn [phone] Allergies Allergen (clinical drug ingredient) Drug/Non Drug [...] Problem Status W/U Status Risk Notes Problem [id number] Encounter for screening for malignant neoplasm of colon (Z12.11) Active confirmed Problem 950116571 Anemia in other chronic diseases classified elsewhere (D63.8) Active confirmed Problem 19878035 Other fatigue (R53.83) Active confirmed Problem 681429076435054 Preprocedural examination (Z01.818) Active confirmed Problem 159606765619712 Aspirin long-ter m use (Z79.82) Active confirmed Problem 440910988 Hx of adenomatou s colonic polyps (Z86.010) Active confirmed Problem 24727124 Diarrhea, unspecified type (R19.7) Active confirmed Plan Of Treatment Future Test Test Name Order Date UPPER GI ENDOSCOPY 04/23/2013 COLONOSCOPY 04/23/2013 COLONOSCOPY 07/27/2018 Insurance Providers Payer Name Payer Address Payer Phone Subscriber Number Group Number Insured Name Patient Relationship to Insured Coverage Start Date Coverage End Date MEDICARE OF [place] [address] [place] [address] [phone] [id number] ALMA LAGOS Self - patient is the insured [employer] [address] [place] [address] [phone] [id number] ALMA LAGOS Self - patient is the [...] esophagitis nor Simmons's, small hiatal hernia Denies [place],DM,CVA,Renal disease Coronary artery disease--2 s tents placed in 08/2014--no LA--has tanner--Dr. Hopper COPD EGD--04/2013--esophageal ring was dilated with an 18mm balloon--no esophagitis, small hiatal hernia Colonoscopy--04/2013--small t ubular adenomas, diverticulosis, internal hemorrhoids Surgical History Surgery Date(Month/Year) Scalene node bx Hand surgery-right Hernia repair Basal cell cancer removal
--- OUTSIDE RECORDS SUMMARY | 2024-12-02 17:42 | XMS_ITS | Patient Health Record ---
Author Organization Moris Yu MD Address [address] [place], [place] [id number] Care Team Providers Care [employer] Name Role Phone Moris Yu Primary Care Provider Allergies Allergen (clinical drug ingredient) Drug/Non Drug Allergy documented on EMR Reaction Allergy Type Onset Date Status azithromycin Zithromax Z-Jhonny severe diarrhea Drug Allergy Active penicillin G Penicillin G Potassium rash Drug Allergy Active Doxycycline Calcium hives Drug Allergy Active Gadolinium and/or gadolinium compound (FN) gadalinium (uncoded) hives Allergy Active Gadavist hives Drug Allergy Active Results Component Value Reference Range Notes Complete Blood Count Auto Di ff Reviewed date:03/01/2024 11:46:39 AM Interpretation: Performing Lab:[facility], [address] [place] [phone] Notes/Report: White Blood Count 5.6 4.8-10.8 X10*3/uL [...] NRBC Abs Auto 0.000 0.0-0.012 X10*3/uL Comprehensive Gautier. Panel Fa Reviewed date:03/01/2024 12:19:08 PM Interpretation: Performing Lab:[facility], [address] [place] [phone] Notes/Report: Sodium 141 135-145 mmol/L Potassium 4.4 [...] Panel Reviewed date:03/01/2024 12:18:48 PM Interpretation: Performing Lab:[facility], [address] [place] [phone] Notes/Report: Triglycerides 76 <150 mg/dL Desirable Triglyceride: [...] (Free>4and<10) Reviewed date:03/01/2024 12:19:16 PM Interpretation: Performing Lab:[facility], [address] [place] [phone] Notes/Report: PSA,Total (Free>4and<10) 0.20 0.00-4.00 ng/mL A [...] Reviewed date:03/08/2024 11:48:58 AM Interpretation:BETSY 03/08/24 Performing Lab:[facility], [address] [place] [phone] Notes/Report: Urine, Clean Catch Color Urine Yellow Appearance Urine Hazy PH 6.0 5.0-9.0 Glucose Urine UA Negative Negative mg/dL Urine Blood Large (3+) Negative Specific Dubberly - Urine 1.020 1.005-1.025 Urine Protein Trace Neg-Trace mg/dL Urine Ketones Negative Negative mg/dL Nitrite Urine Positive Negative Leukocyte Esterase Urine Moderate (2+) Negative RBC Urine >20 0-2 /HPF WBC Urine 0-5 0-5 /HPF Squamous Epithelial Cell Urine 0-2 0-2 /HPF Bacteria Urine 1+ None Seen Hyaline Casts Urine 0-2 0-2 /LPF Liver Panel Reviewed date:09/09/2024 12:51:06 PM Interpretation: Performing Lab:[address] [phone] Notes/Report: Bilirubin Total 0.8 0.0-1.0 mg/dL Bilirubin Direct 0.3 0.0-0.5 mg/dL Aspartate Amino Transferase 35 5-37 U/L Alanine Aminotransferase 12 0-40 U/L Total Protein 6.4 6.5-8.0 g/dL Albumin Level 3.2 3.5-5.0 g/dL Alkaline Phosphatase 67 39-117 U/L Lipid Panel with Reflex Reviewed date:09/09/2024 12:54:45 PM Interpretation: Performing Lab:[address] [phone] Notes/Report: Triglycerides 75 <150 mg/dL Desirable Triglyceride: [...] low results in patients with liver disease. Comprehensive Met. Panel Reviewed date:06/19/2024 12:33:30 PM Interpretation: Performing Lab:[address], [place] [address] Notes/Report: Sodium 138 135-145 mmol/L Potassium 4.1 [...] Panel Reviewed date:06/19/2024 06:27:16 PM Interpretation: Performing Lab:[facility], [address] [place] [phone] Notes/Report: Campylobacter Not Detected Not Detect. Plesiomonas [...] is performed by Multiplexed PCR, utilizing the [employer] Array. Complete Blood Count Auto Di ff Reviewed date:01/03/2024 12:30:08 PM Interpretation: Performing Lab:[facility], [address] [place] [phone] Notes/Report: White Blood Count 5.7 4.8-10.8 X10*3/uL [...] Panel Reviewed date:01/03/2024 12:18:50 PM Interpretation: Performing Lab:[facility], [address] [place] [phone] Notes/Report: Sodium 139 135-145 mmol/L Potassium 4.4 3.3-5.1 mmol/L Chloride 110 96-108 mmol/L Carbon Dioxide 23 22-29 mmol/L Anion Gap 10 12-20 Blood Urea Nitrogen 17 9-16 mg/dL Creatinine 1.74 0.5-1.4 mg/dL Estimated Glomerular Filt Rate 38 NOTE: For -Malian individuals, multiply the result by 1.210. Chronic Kidney Disease: Estimated GFR < 60 mL/min/1.73m2 Severe Kidney Disease: Estimated GFR < 15 mL/min/1.73m2 Glucose Random 97 60-115 mg/dL Calcium 9.7 8.4-10.2 mg/dL XR KUB Reviewed date:02/18/2024 03:50:04 PM Interpretation: Performing Lab: Notes/Report: [address] [address] XRay Report Signed Patient: Erasmo Quevedo MR#: [id number] 70 : 1945 Acct:[id number] Age/Sex: 78 / M ADM Date: 02/15/24 Loc: [facility] Attending Dr: Kuldip Ibarra MD Ordering Physician: Kuldip Ibarra MD Date of Service: 02/15/24 Procedure(s): XR KUB Accession Number(s): [id number] cc: Kuldip Ibarra MD; Moris Yu MD [...] OV> 02/17/242038 DD/ 1150 TD/TT: 02/15/24 1205 Thermostat Repairer: [place] [address] XRay Report Signed Patient: Chris Quevedo MR#: [id number] [birth year] : 1945 Acct:[id number] Age/Sex: 78 / M ADM Date: 02/15/24 Loc: HO.TINOAY Attending Dr: Kuldip Ibarra MD Ordering Physician: Kuldip Ibarra MD Date of Service: 02/15/24 Procedure(s): XR KUB Accession Number(s): [id number] cc: Leonardo Ibarra MD; Moris Yu MD [...] by: Newton Elkins MD 02/17/2024 08:39 PM [facility] Dictated By: Newton Elkins MD Signed By: <Electronically signed by Newton Elkins MD in OV> 02/17/242038 DD/ 1150 TD/TT: 02/15/24 1205 Thermostat Repairer: Urine Culture Reviewed date:03/03/2024 06:22:09 PM Interpretation: Performing Lab:[facility], [address] [place] [phone] Notes/Report: Urine Culture No growth. CT abdomen pelvis wo con Reviewed date:04/05/2024 10:26:12 AM Interpretation: Performing Lab: Notes/Report: [address] [address] [address] Scan Report Signed Patient: Erasmo Quevedo MR#: [id number] 70 : 1945 Acct:[id number] Age/Sex: 78 / M ADM Date: 04/03/24 Loc: HO.CT Attending Dr: Kuldip Ibarra MD Ordering Physician: Kuldip Ibarra MD Date of Service: 04/03/24 Procedure(s): CT abdomen pelvis wo IV con Accession Number(s): [id number] cc: Kuldip Ibarra MD; Moris Yu MD Report Number: [id number]: Total DLP = 625.00 mGy-cm CLINICAL HISTORY: [...] 04/04/24 1247 DD/ 1246 TD/TT: 04/04/24 1246 Thermostat Repairer: [address] [address] [address] Scan Report Signed Patient: Chris Quevedo MR#: [id number] 70 : 1945 Acct:[id number] Age/Sex: 78 / M ADM Date: 04/03/24 Loc: HO.CT Attending Dr: Kuldip Ibarra MD Ordering Physician: Kuldip Ibarra MD Date of Service: 04/03/24 Procedure(s): CT abdomen pelvis wo IV con Accession Number(s): [id number] cc: Leonardo Ibarra MD; Moris Yu MD Report Number: [id number]: Total DLP = 625.00 mGy-cm CLINICAL HISTORY: [...] le ft ureterovesicular junction without associated hydronephrosis/hydro ure ter. Focal thickening (up to 26 mm) of [...] 04/04/24 1247 DD/ 1246 TD/TT: 04/04/24 1246 Thermostat Repairer: Kidney Stone Reviewed date:05/14/2024 10:06:37 AM Interpretation: Performing Lab:[facility], [address] [place] [phone] Notes/Report: R Ureter S1246 Component 1 SEE NOTE Calcium Oxalate Dihydrate (Weddellite) 20% Calcium Oxalate Monohydrate (Whewellite) 80% Stone Weight 0.003 This test was developed and its analytical performance characteristics have been determined by [employer]. It has not been cleared or approved by the FDA. This assay has been validated pursuant to the CLIA regulations and is used for clinical purposes. THIS TEST WAS PERFORMED AT: [email or web address] [address] [place] [address] SIDDHARTH ZULUAGA MD,PHD,JAN [facility] Pathology Reviewed date:05/08/2024 07:02:03 PM Interpretation: Performing Lab:[facility], [address] [place] [phone] Notes/Report: --- Name: Erasmo Quevedo Age/Sex: 79/M : 1945 Unit#: [id number] Attend Dr: Kuldip Ibarra MD Re05/07/24 [place] : [facility] [place]: [facility] Disch: --- SPEC : [id number] RECD : 05/07/24 STATUS: DI MORRISON NUM: [id number] JAQUELINE: 05/07/24-[address]: Kuldip Ibarra MD ENTERED: 05/07/24 SP TYPE: Surgical OTHR DR: Moris Yu MD ORDERED: GO Diagnosis Right ureteral stone (removal): Calculus identified; macroscopic description only. Comment: The entire specimen was sent for chemical analysis. Please see the laboratory portion of the EMR f or the outside report from [employer]. Clinical History Calculus of ureter Material Received Right ureteral stone Gross Description Received fresh with gauze labeled right ureteral stone? is a 0.2 cm hard, white-odom calculus, forwarded to [facility] for chemical analysis. No soft tissue is identified. Gross description only. CEDS Copies To: Kuldip Ibarra MD [facility] [address] [place] [address] Dr. Marva [address] [place] [address] [email or web address] Moris Yu MD [facility] [address] [place] [address] [address] [place] [address] --- Signed (signature on file) Judit Nikhil 05/08/24 0856 --- END OF REPORT Urine Culture Reviewed date:05/13/2024 12:07:29 PM Interpretation: Performing Lab:[facility], [address] [place] [phone] Notes/Report: Urine Culture Report Result Urine Culture < 10,000 cfu/ml O:CANALB Christa albicans Urine Culture Quant Urine Culture < 10,000 cfu/mL FL guidance in OR Reviewed date:05/08/2024 07:02:20 PM Interpretation: Performing Lab: Notes/Report: [address] [address] Fluoroscopy Report Signed Patient: Erasmo Quevedo MR#: [id number] 70 : 1945 Acct:[id number] Age/Sex: 79 / M ADM Date: 05/07/24 Loc: [facility] Attending Dr: Kuldip Ibarra MD Ordering Physician: Kuldip Ibarra MD Date of Service: 05/07/24 Procedure(s): FL guidance in OR Accession Number(s): [id number] cc: Kuldip Ibarra MD; Moris Yu MD [...] 05/07/24 1442 DD/ 1230 TD/TT: 05/07/24 1350 Thermostat Repairer: [address] [address] Fluoroscopy Report Signed Patient: Chris Quevedo MR#: [id number] 70 : 1945 Acct:[id number] Age/Sex: 79 / M ADM Date: 05/07/24 Loc: [facility] Attending Dr: Kuldip Ibarra MD Ordering Physician: Kuldip Ibarra MD Date of Service: 05/07/24 Procedure(s): FL guidance in OR Accession Number(s): [id number] cc: Leonardo Ibarra MD; Moris Yu MD [...] 05/07/24 1442 DD/ 1230 TD/TT: 05/07/24 1350 Thermostat Repairer: Basic Metabolic Panel Reviewed date:06/02/2024 10:00:22 AM Interpretation: Performing Lab:[facility], [address] [place] [phone] Notes/Report: Sodium 140 135-145 mmol/L Potassium 4.0 [...] date:06/03/2024 12:20:03 PM Interpretation: Performing Lab: Notes/Report: [address] [address] XRay Report Signed Patient: Erasmo Quevedo MR#: [id number] 70 : 1945 Acct:[id number] Age/Sex: 79 / M ADM Date: 05/31/24 Loc: [facility] Attending Dr: Mau Hodge MD Ordering Physician: Kuldip Ibarra MD Date of Service: 05/31/24 Procedure(s): XR KUB Accession Number(s): [id number] cc: Kuldip Ibarra MD; Moris Yu MD [...] 06/03/24 1007 DD/ 1217 TD/TT: 05/31/24 1230 Thermostat Repairer: [place] [address] XRay Report Signed Patient: Chris Quevedo MR#: [id number] 70 : 1945 Acct:[id number] Age/Sex: 79 / M ADM Date: 05/31/24 Loc: HO.XRAY Attending Dr: Mau Hodge MD Ordering Physician: Kuldip Ibarra MD Date of Service: 05/31/24 Procedure(s): XR KUB Accession Number(s): [id number] cc: Leonardo Ibarra MD; Moris Yu MD [...] 06/03/24 1007 DD/ 1217 TD/TT: 05/31/24 1230 Thermostat Repairer: FL upper GI w air Reviewed date:06/03/2024 12:49:02 PM Interpretation: Performing Lab: Notes/Report: [address] [address] Fluoroscopy Report Signed Patient: Erasmo Quevedo MR#: [id number] 70 : 1945 Acct:[id number] Age/Sex: 79 / M ADM Date: 06/03/24 Loc: HO.XRAY Attending Dr: Moris Yu MD Ordering Physician: Moris Yu MD Date of Service: 06/03/24 Procedure(s): FL upper GI w air Accession Number(s): [id number] cc: Moris Yu MD EXAMINATION: XR FLUOROSCOPY [...] 06/03/24 1133 DD/ 0745 TD/TT: 06/03/24 0820 Thermostat Repairer: MSM [address] [address] Fluoroscopy Report Signed Patient: Chris Quevedo MR#: [id number] 70 : 1945 Acct:[id number] Age/Sex: 79 / M ADM Date: 06/03/24 Loc: HO.XRAY Attending Dr: Moris Yu MD Ordering Physician: Moris Yu MD Date of Service: 06/03/24 Procedure(s): FL upp er GI w air Accession Number(s): [id number] cc: Moris Yu MD EXAMINATION: XR FLUOROSCOPY [...] Gilmer Munoz MD 06/03/2024 11:33 AM EDT RP Dictated By: Gilmer Munoz MD Signed By: <Electronically signed by Gilmer Munoz MD in OV> 06/03/24 1133 DD/ 0745 TD/TT: 06/03/24 0820 Thermostat Repairer: ENRIQUE Complete Blood Count Auto Di ff Reviewed date:06/18/2024 06:23:55 PM Interpretation: Performing Lab:[facility], [address] [place] [phone] Notes/Report: White Blood Count 5.6 4.8-10.8 X10*3/uL [...] X10*3/uL NRBC Abs Auto 0.000 0.0-0.012 X10*3/uL Urine Culture Reviewed date:08/01/2024 12:42:15 PM Interpretation: Performing Lab:[facility], [address] [place] [phone] Notes/Report: Urine Culture Report Result Urine Culture < 10,000 cfu/ml XR KUB Reviewed date:07/31/2024 04:42:15 PM Interpretation: Performing Lab: Notes/Report: [address] [address] XRay Report Signed Patient: Erasmo Quevedo MR#: [id number] 70 : 1945 Acct:[id number] Age/Sex: 79 / M ADM Date: 07/31/24 Loc: HO.SSS Attending Dr: Kuldip Ibarra MD Ordering Physician: Kuldip Ibarra MD Date of Service: 07/31/24 Procedure(s): XR KUB Accession Number(s): [id number] cc: Kuldip Ibarra MD; Moris Yu MD CLINICAL HISTORY: pre right ESWL Single view of the abdomen. COMPARISON: None FINDINGS: Double-J ureteral stent overlies the expected location of the right kidney and urinary bladder. No calcification identified along the course of the stent. Right total hip arthroplasty partially visualized. Normal bowel distention. Calcifications measuring 1.2, 0.7 and 1.1 cm overlie the expected location of the left renal shadow. Calcifications measuring 0.7 and 0.6 cm overlie the expected location of the left renal calculus No pneumoperitoneum identified. Mild stool burden. Moderate to advanced multilevel spondylosis. Dextrocurvature of the lumbar spine. No acute fracture identified. IMPRESSION: 1. Nonspecific nonobstructive bowel gas pattern. 2. Right double-J ureteral stent overlies the expected location of the right ureter. 3. Several calcifications overlie the renal shadows bilaterally measuring up to 1.2 cm on the left. These may represent renal calculi. This document has been electronically signed by: Terrence Beebe MD on 07/31/2024 14:28:12 Dictated By: Terrence Beebe MD Signed By: <Electronically signed by Terrence Beebe MD in OV> 07/31/24 1428 DD/ 1428 TD/TT: 07/31/24 142 Thermostat Repairer: [address] [address] XRay Report Signed Patient: Chris Quevedo MR#: [id number] 70 : 1945 Acct:[id number] Age/Sex: 79 / M ADM Date: 07/31/24 Loc: HO.SSS Attending Dr: Kuldip Ibarra MD Ordering Physician: Kuldip Ibarra MD Date of Service: 07/31/24 Procedure(s): XR KUB Accession Number(s): [id number] cc: Leonardo Ibarra MD; Moris Yu MD CLINICAL HISTORY: pr e right ESWL Single view of the abdomen. COMPARISON: None FINDINGS: Double-J ureteral st ent overlies the expected location of the right kidney and urinary bladder. No calcification identified along the course of the stent. Right total hip arthroplasty partially visualized. Normal bowel distention. Calcifications measuring 1.2, 0.7 and 1.1 cm overlie the expected location of the left renal shadow. Calcifications measuring 0.7 and 0.6 cm overlie the expected location of the left renal calculus No pneumoperitoneum identified. Mild stool burden. Moderate to advanced multilevel spondylosis. Dextrocurvature of the lumbar spine. No acute fracture identified. IMPRESSION: 1. Nonspecific nonobstructive bowel gas pattern. 2. Right double-J ureteral stent overlies the expected location of the right ureter. 3. Several calcifications overlie the renal shadows bilaterally measuring up to 1.2 cm on the left. These may represent renal calculi. This document has be en electronically signed by: Terrence Beebe MD on 07/31/2024 14:28:12 Dictated By: Terrence Beebe MD Signed By: <Electronically signed by Terrence Beebe MD in OV> 07/31/24 1428 DD/ 1428 TD/TT: 07/31/24 1428 Thermostat Repairer: Ebenezer Adler Reviewed date:09/09/2024 12:50:56 PM Interpretation: Performing Lab:[facility], [address] [place] [phone] Notes/Report: Ebenezer Adler See Note Specimen held untested for 24 hours; Call to request Chemistry testing. US renal BI Reviewed date:09/11/2024 03:50:46 PM Interpretation: Performing Lab: Notes/Report: [address] [address] Ultrasound Report Signed Patient: Erasmo Quevedo MR#: [id number] 70 : 1945 Acct:[id number] Age/Sex: 79 / M ADM Date: 09/10/24 Loc: HO.US Attending Dr: Kuldip Ibarra MD Ordering Physician: Kuldip Ibarra MD Date of Service: 09/10/24 Procedure(s): US renal BI Accession Number(s): [id number] cc: Kuldip Ibarra MD; Moris Yu MD CLINICAL HISTORY: N20.1 - Calculus of ureter US renal Comparison: 08/20/2023 Findings: Right kidney 10.0 cm length. Left kidney 11.5 cm length. Multiple bilateral nonobstructing stones. Bilateral incidental cysts also noted. No bilateral hydronephrosis. Normal bilateral renal echogenicity. Impression: Bilateral nonobstructing renal stones Incidental renal cysts also noted. This document has been electronically signed by: Erasmo Kong MD on 09/10/2024 22:22:54 Dictated By: Erasmo Kong MD Signed By: <Electronically signed by Erasmo Kong MD in OV> 09/10/242223 DD/ 21 TD/TT: 09/10/242221 Thermostat Repairer: [place] [address] Ultrasound Report Signed Patient: Chris Quevedo MR#: [id number] 70 : 1945 Acct:[id number] Age/Sex: 79 / M ADM Date: 09/10/24 Loc: HO.US Attending Dr: Kuldip Ibarra MD Ordering Physician: Kuldip Ibarra MD Date of Service: 09/10/24 Procedure(s): US sebas al BI Accession Number(s): [id number] cc: Leonardo Ibarra MD; Moris Yu MD CLINICAL HISTORY: N2 0.1 - Calculus of ureter US renal Comparison: 08/20/2023 Findings: Right kidney 10.0 cm length. Left kidney 11.5 cm length. Multiple bilateral nonobstructing stones. Bilateral incidental cysts also noted. No bilateral hydronephrosis. Normal bilateral sebas al echogenicity. Impression: Bilateral nonobstructing renal stones Incidental renal cys ts also noted. This document has be en electronically signed by: Erasmo Kong MD on 09/10/2024 22:22:54 Dictated By: Erasmo Kong MD Signed By: <Electronically signed by Erasmo Kong MD in OV> 09/10/242223 DD/ 21 TD/TT: 09/10/242221 Thermostat Repairer: Basic Metabolic Panel Reviewed date:10/11/2024 12:33:52 PM Interpretation: Performing Lab:[facility], [address] [place] [phone] Notes/Report: Sodium 138 135-145 mmol/L Potassium 4.3 3.3-5.1 mmol/L Slight Hemolysis.Interpret result with caution. Chloride 109 96-108 mmol/L Carbon Dioxide 20 22-29 mmol/L Anion Gap 13 12-20 Blood Urea Nitrogen 17 9-16 mg/dL Creatinine 1.47 0.5-1.4 mg/dL Estimated Glomerular Filt Rate 46 Chronic Kidney Disease: Estimated GFR < 60 mL/min/1.73m2 Severe Kidney Disease: Estimated GFR < 15 mL/min/1.73m2 Glucose Random 92 60-115 mg/dL Calcium 8.9 8.4-10.2 mg/dL Reason For Referral No Information Medications Medication SIG (Take, Route, Frequency, Duration) Notes Start Date End Date Status Doxycycline Hyclate 100 MG 1 capsule Orally Once a day for 10 day(s) Not-Taking Prevagen 10 MG as directed Orally Not-Taking Ventolin HFA 108 2 puffs as needed Inhalation every 4 hrs Not-Takin g Bisoprolol Fumarate 5 MG 1 tablet Orally Once a day for 30 day(s) Not-Taking Cialis 10 MG 1 tablet Orally for 30 day(s) Not-Taking Dulera 100-5 MCG/ACT 2 puffs Inhalation Twice a day Active Albuterol Sulfate HFA 108 (90 Base) MCG/ACT 1 puff as needed Inhalation every 4 hrs 07/09/2021 Not-Takin g Atorvastatin Calcium 80 MG take 1 tablet daily Orally Once a day Active Naproxen 250 MG 1 tablet with food o r milk Orally Twice a day for 30 day(s) Not-Taking Allopurinol 100 MG 1 tablet Orally Once a day for 30 day(s) Active Escitalopram Oxalate 10 MG 1 tablet Orally Once a day for 30 day(s) 07/08/2022 Not-Taking Xelpros 0.005 % 1 null into affected eye in the evening Ophthalmic Once a day Active Dymista 137-50 MCG/ACT 1 puff in each no stril Nasally Twice a day Not-Taking Losartan Potassium 25 MG 1 tablet Orally Once a day for 30 day(s) Not-Taking Albuterol Sulfate 0.63 MG/3ML 3 ml as needed Inhalation Three times a day for 90 days 10/23/2014 Not-Taking Montelukast Sodium 10 mg TAKE 1 TABLET D AILY IN THE EVENING Active Alphagan P 0.1 % 1 drop into affected eye Ophthalmic every 8 hrs Not-Taking Eliquis 5 MG 1 tablet Orally Twic e a day Active Omeprazole 20 MG TAKE 1 CAPSULE DAILY Orally Once a day for 90 days Not-Taking Spiriva Respimat 2.5 MCG/ACT 2 puffs Inhalation Once a day Active Budesonide (Inhalation) once a day, QOD Not-Taking Potassium Citrate ER 10 MEQ (1080 MG) 1 tablet with meals Orally Twice a day Active Finasteride 5 MG 1 tablet Orally Once a day for 30 day(s) Active Multaq 400 MG 1 tablet with meals Orally Twice a day for 30 day(s) Active Immunizations Vaccine Route Administration Date Status Comme nts Flu Vaccine Unknown 12/17/2010 Administered Shingles Unknown 06/30/2009 Administered Prevnar 13 Unknown 01/13/2012 Administered Flu Vaccine Unknown 12/07/2011 Administered given at [facility] Flu Vaccine Unknown 11/18/2012 Administered received at [facility] PPSV23 (Pnemovax) IM Intramuscular 09/19/2013 Administered Flu Vaccine Unknown 12/03/2013 Administered was given b [facility] Flu Vaccine Unknown 11/27/2014 Administered Given [...] W/U Status Risk Notes Problem Erectile dysfunction (834540337) Erectile Dysfunction (607.84) Active confirmed Problem 944012829 Thrombocytopenia (D69.6) Active confirmed Problem 446385086 Paroxysmal atria l fibrillation (I48.0) Active confirmed Problem 315819999 Tubular adenoma of colon (D12.6) Active confirmed Problem 041158228 History of coron shaquille artery disease (Z86.79) Active confirmed Problem 56874017 Sarcoidosis (D86.9) Active confirmed Problem 20225443 Dysthymia (F34.1) Active confirmed Problem 449060038 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) Active confirmed Problem 794310838 Pure hypercholesterolemia (E78.00) Active confirmed Problem Hypercholesterolemia (85283360) Hypercholesterolemia (E78.00) Active confirmed Problem 243394722 BMI 32.0-32.9,ad ult (Z68.32) Active confirmed Problem 760155586 Moderate asthma without complication, unspecified whether persistent (J45.909) Active confirmed Problem 31804715 Chronic congesti ve heart failure, unspecified heart failure type (I50.9) Active confirmed Problem 825031112 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) Active confirmed Problem 577647514 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 confirmed Problem Hypersomnia (93003426) Hypersomnolence (G47.10) Active confirmed Problem 37054824 Other ventricula r tachycardia (I47.29) Active confirmed Problem 104199201 Acute constipati on (K59.00) Active confirmed Vital Signs Blood pressure diastolic 56 mm Hg 09/13/2024 viktor ght is down 26 pounds since 03-08-24 Height 70 in 09/13/2024 weight is down 26 pounds since 03-08-24 Blood pressure systolic 94 mm Hg 09/13/2024 weig ht is down 26 pounds since 03-08-24 Weight 196 lbs 09/13/2024 weight is down 26 pounds since 03-08-24 BMI 28.12 kg/m2 09/13/2024 weight is down 26 pounds since 03-08-24 Encounters Encounter Location Date Provider Diagnosis Moris Yu MD [address] [place] [id number] 03/01/2024 Moris Yu Pure hypercholestero lemia E78.00 ; Thrombocytopenia D69.6 and Chronic congestive heart failure, unspecified heart failure type I50.9 Moris Yu MD [address] [place] [address] Drive [address] [place] [id number] 09/09/2024 Moris Yu Pure hypercholestero lemia E78.00 Moris Yu MD [address] [place] [address] [address] [place], [place] [address] [id number] 03/08/2024 Moris Yu Gross hematuria R31. 0 ; Paroxysmal atrial fibrillation I48.0 ; Sarcoidosis D86.9 ; Status post insertion of drug eluting coronary artery stent Z95.5 ; Pure hypercholesterolemia E78.00 ; Chronic congestive heart failure, unspecified heart failure type I50.9 ; Moderate asthma without complication, unspecified whether persistent J45.909 ; Colon cancer screening Z12.11 and Depression screening Z13.31 Moris Yu MD [address] [place] [address] [address] [place] [address] [id number] 09/13/2024 Moris Yu Sarcoidosis D86.9 ; Chronic congestive heart failure, unspecified heart failure type I50.9 and Other ventricular tachycardia I47.29 Moris Yu MD [address] [place] [address] Drive [address] [place] [address] [id number] 04/05/2024 Moris Yu Abnormal computed tomography of abdomen and pelvis R93.5 Moris Yu MD [address] [place] [address] [id number] 06/18/2024 Moris Yu Diarrhea R19.7 Moirs Yu MD [address] [place] [address] [address] [place] [address] [id number] 10/10/2024 Moris Yu Assessments Encounter Date Diagnosis (ICD Code) Assessment Notes Treatment Notes Treatment Clinical Notes Section Notes 03/01/2024 Pure hypercholesterolemia (ICD-10 - E78.00) 03/01/2024 Thrombocytopenia (ICD-10 - D69.6) 09/09/2024 Pure hypercholesterolemia (ICD-10 - E78.00) 03/08/2024 Gross hematuria (ICD -10 - R31.0) having evaluation at urology. has kidney stones 03/08/2024 Paroxysmal atrial fibrillation (ICD-10 - I48.0) stable, will continue current regiment 09/13/2024 Sarcoidosis (ICD-10 - D86.9) seems to be getting better 04/05/2024 Abnormal computed tomography of abdomen and pelvis (ICD-10 - R93.5) 06/18/2024 Diarrhea (ICD-10 - R19.7) Order made and faxed to Patient [facility]. patient's notified. Patient's will call and make appointment with Dr Srivastava. 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) no chest pain 09/13/2024 Other ventricular tachycardia (ICD-10 - I47.29) is being evaluated by cardiology 03/08/2024 Pure hypercholesterolemia (ICD-10 - E78.00) stable, will continue current regiment 03/08/2024 Chronic congestive heart failure, unspecified heart [...] Provider Name:Moris Wiggins ier, 03/06/2025 08:00:00 AM, [address] [place] [address], [address] [place] [address], [phone], Provider Name:Moris Wiggins ier, 03/13/2025 02:30:00 PM, [address] [place] [address], [address], [place], [place], [phone], Insurance Providers Payer Name Payer Address Payer Phone Subscriber Number Group Number Insured Name Patient Relationship to Insured Coverage Start Date Coverage End Date MEDICARE [employer] [address] [place] [address] [id number] Erasmo Quevedo Self - patient is the insured [address] [id number] [id number] Erasmo Quevedo Self - patient is the insured Medical (General) History Medical History History ICD Code colonoscopy - 04/2006 - repea t 5 years. 07/27/12; colonoscopy 05/14/2013 - repeat 5 years; Colonoscopy done 11/19/[address] Srivastava - no further testing indicated. Achilles bursitis or tendinitis HX of Kidney Stones Incidental Lung Nodule
--- OUTSIDE RECORDS SUMMARY | 2024-12-02 17:42 | XMS_ITS | Clinical Summary ---
Author Organization [facility] Address [address] [address] Phone Care Team Providers Care Senior Payroll Specialist Name Role Phone Moris Yu MD Primary Care Provider Sebastian Patricia MD Unavailable Joon Hopper MD Unavailable [phone] Allergies Active Allergy Reactions Criticality Noted Date Comments Gadolinium-Containing Contrast Media Hives Medium 01/16/2015 Medications aspirin 81 MG EC tabletIndicatio ns:Calculus of both kidneys,Coronar y artery disease,Asthma, mild intermittent, uncomplicated,S arcoidosis,Paro xysmal ventricular tachycardia Take 1 tablet (81 mg total) by mouth daily. 5 Active potassium citrate (UROCIT-K) 10 mEq SR tabletIndicatio ns:Calculus of both kidneys,Coronar y artery disease,Asthma, mild intermittent, uncomplicated,S arcoidosis,Paro xysmal ventricular tachycardia Take 1 tablet (10 mEq total) by mouth 2 (two) times a day with meals. 5 Active Additional Information Patient not taking.Reported on 01/05/2017 allopurinol (ZYLOPRIM) 100 MG tabletIndicatio ns:Calculus of both kidneys,Coronar y artery disease,Asthma, mild intermittent, uncomplicated,S arcoidosis,Paro xysmal ventricular tachycardia Take 1 tablet (100 mg total) by mouth daily. 5 Active omeprazole (PRILOSEC) 20 MG capsuleIndicati ons:Calculus of both kidneys,Coronar y artery disease,Asthma, mild intermittent, uncomplicated,S arcoidosis,Paro xysmal ventricular tachycardia Take 1 capsule (20 mg total) by mouth daily. 5 Active fluticasone propionate (FLONASE) 50 mcg/actuation nasal sprayIndication s:Calculus of both kidneys,Coronar y artery disease,Asthma, mild intermittent, uncomplicated,S arcoidosis,Paro xysmal ventricular tachycardia 1 spray by Nasal route daily. 16 g 12 5 Active Additional Information Patient not taking.Reported on 01/05/2017 montelukast (SINGULAIR) 10 mg tabletIndicatio ns:Calculus of both kidneys,Coronar y artery disease,Asthma, mild intermittent, uncomplicated,S arcoidosis,Paro xysmal ventricular tachycardia Take 1 tablet (10 mg total) by mouth nightly. 5 Active atorvastatin (LIPITOR) 80 MG tabletIndicatio ns:Calculus of both kidneys,Coronar y artery disease,Asthma, mild intermittent, uncomplicated,S arcoidosis,Paro xysmal ventricular tachycardia Take 1 tablet (80 mg total) by mouth daily. 5 Active mometasone-form oterol (DULERA) 100-5 mcg/actuation HFAAIndications :Calculus of both kidneys,Coronar y artery disease,Asthma, mild intermittent, uncomplicated,S arcoidosis,Paro xysmal ventricular tachycardia Inhale 2 puffs into the lungs 2 (two) times a day. 5 Active albuterol (ACCUNEB) 1.25 mg/3 mL nebulizer solutionIndicat ions:Calculus of both kidneys,Coronar y artery disease,Asthma, mild intermittent, uncomplicated,S arcoidosis,Paro xysmal ventricular tachycardia Take 3 mL (1.25 mg total) by nebulization every 6 (six) hours as needed for wheezing. 5 Active budesonide (PULMICORT) 0.5 mg/2 mL nebulizer solution Take 0.5 mg by nebulization daily. Active azelastine-flut icasone (DYMISTA) 137-50 mcg/spray [place] 1 spray by Each Nare route 2 (two) times a day. Active vit B6-mag cit,oxid-potass cit (THERALITH XR) 3.75-45-45-49.5 mg TbER Take by mouth. Activ e tiotropium (SPIRIVA HANDIHALER) 18 mcg inhalation capsule Inhale 18 mcg into the lungs daily. Active naproxen (NAPROSYN) 250 MG tablet Take 220 mg by mouth 2 (two) times a day with meals. Active bisoprolol (ZEBETA) 5 MG tablet Take 1 tablet (5 mg total) by mouth daily. 90 tablet 3 7 Active Active Problems Problem Noted Date Diagnosed Date Hyperlipidemia 12/11/2015 Congestive heart failure 12/11/2015 Calculus of both kidneys 01/09/2015 Coronary artery disease 01/09/2015 Sarcoidosis 01/09/2015 Asthma 01/09/2015 Social History Tobacco Use Types Packs/Day Years Used Date Smoking Tobacco: Never Smokeless Tobacco: Never Alcohol Use Standard Drinks/Week Comments Not Asked 0 (1 standard drink = 0.6 oz pur e alcohol) Education Answer Date Recorded Are you interested in more education? Not on ernie e 06/26/2022 Are you concerned about learning? Not on file 06/26/2022 No 06/26/2022 No 06/26/2022 Digital Access Answer Date Recorded No 07/23/2022 No 07/23/2022 No 07/23/2022 Reliable internet access at home? Not on file 07/23/2022 Device with a working camera? Not on file Sex and Gender Information Value Date Recorded Sex Assigned at Not on file Legal Sex Male 4:56 PM EST Gender Identity Not on file Sexual Orientation Not on file Last Filed Vital Signs Vital Sign Reading Time Taken Comments Blood Pressure 126/75 01/05/2017 4:06 PM EST Pulse 62 01/05/2017 4:06 PM EST Temperature - - Respiratory Rate - - Oxygen Saturation - - Inhaled Oxygen Concentration - - Weight 95.3 kg (210 lb) 01/05/2017 4:06 PM EST Height - - Body Mass Index - - Plan of Treatment Health Maintenance Due Date Last Done Comments HEPATITIS C SCREENING 05/04/1963 CREATININE LEVEL 01/10/2016 01/09/2015 DEPRESSION SCREENING 01/05/2018 01/05/2017 RSV VACCINE (1 - 1-dose 75+ series) 2020 INFLUENZA VACCINE (#1) 2024 , 10/29/2019, 12/05/2018, Additional history exists COVID-19 VACCINE (2024- season) 2024 12/31/2020, 05/13/2020, 04/15/2020 Adult Td,Tdap Booster 04/24/2029 04/24/2019, 015 SMOKING STATUS SCREENING (Once After 26 Yrs) Completed 01/05/2017 ZOSTER VACCINES Completed 05/17/2018, 12/28, 06/30/2009 PNEUMOCOCCAL VACCINES (50+ years) Completed 12/18/2018, 01/13/2012 HEPATITIS A VACCINES Aged Out No long er eligible based on patient's age to complete this topic HIB VACCINES Aged Out No longer eligi ble based on patient's age to complete this topic MENINGOCOCCAL VACCINES (ACWY) Aged Out No longer eligible based on patient's age to complete this topic MENINGOCOCCAL VACCINES (B) Aged Out N o longer eligible based on patient's age to complete this topic Medical Devices Not on file Procedures Procedure Name Priority Date/Time Associated Diagnosis Comments COMPREHENSIVE METABOLIC PANEL Routine 01/09/2015 5:41 PM EST Calculus of both kidneys Coronary artery disease Asthma, mild intermittent, uncomplicated Sarcoidosis Paroxysmal ventricular tachycardia from Last 3 Months or Most Recently Relevant to Health Maintenance Results * Comprehensive metabolic panel ([facility], [facility], [facility], [facility] Only) (01/09/2015 5:41 PM EST) SODIUM 142 136 - 145 mmol/L [facility] POTASSIUM 4.0 3.4 - 5.0 mmol/L [facility] CHLORIDE 102 98 - 107 mmol/L [facility] CO2 24 22 - 31 mmol/L [facility] BUN 13 6 - 23 mg/dL [facility] CREATININE 0.99 0.50 - 1.20 mg/dL [facility] GLUCOSE 89 70 - 100 mg/dL [facility] ALBUMIN 4.3 3.5 - 5.2 g/dL [facility] TOTAL PROTEIN 7.6 6.4 - 8.3 g/dL [facility] CALCIUM 10.0 8.8 - 10.7 mg/dL [facility] ALKALINE PHOSPHATASE 73 35 - 130 U/L [facility] TOTAL BILIRUBIN 0.6 0.0 - 1.0 mg/dL [facility] AST 30 10 - 50 U/L [facility] ALT 33 10 - 50 U/L [facility] GLOBULIN 3.3 2.2 - 4.2 g/dL [facility] EGFR >59 >59 mL/min/1.7 3m2 [facility] Comment:If patient is black, multiply result by 1.21 ANION GAP 16 5 - 17 mmol/L [facility] 01/09/2015 5:41 PM EST 01/09/2015 6:14 PM EST us Jerardo Christianson MD LAB BLOOD ORDERABLES Final Result [facility] [address] [place] [phone] from Last 3 Months or Most Recently Relevant to Health Maintenance Insurance MEDICARE PART A & B [facility] MEDICARE SUPPLEMENT MEDICARE PART A & B [employer] FOR LIFE MEDICARE SUPPLEMENT MEDICARE PART A & B [employer] FOR [employer] MEDICARE SUPPLEMENT MEDICARE PART A & B [employer] MEDICARE SUPPLEMENT MEDICARE PART A & B [employer] MEDICARE SUPPLEMENT MEDICARE PART A & B Member Subscriber Plan / Payer ( fective 2010-) Name:Erasmo Quevedo Member ID:[id number] Relation to Subscriber:Self Name:Erasmo Quevedo Subscriber ID:[id number] Payer ID:[id number] Group ID:Not on file Type:Medicare Address: [employer] [address] [place] [id number] [employer] MEDICARE SUPPLEMENT MEDICARE PART A & B [employer] MEDICARE SUPPLEMENT MEDICARE PART A & B [facility] MEDICARE SUPPLEMENT MEDICARE PART A & B FOR LIFE MEDICARE SUPPLEMENT Care Teams Senior Payroll Specialist Relationship Specialty Start Date End Date Moris Yu MD [address] [place] [address] [place] [address] PCP - General Internal Medicine 11/14/14 Sebastian Patricia MD [address] [place] [address] [place] [address] Internal Medicine 01/27/15 Joon Hopper MD [address] [place] [address] [place] [address] Cardiology 01/27/15 Additional Source Comments The information contained in this document represents components of the legal health record. It is not the complete legal health record.[facility]
--- OUTSIDE RECORDS SUMMARY | 2024-12-02 17:42 | XMS_ITS | Clinical Summary ---
Author Organization [facility] Address [address] [place] [address] Care Team Providers Care Medical Detail Representative Name Role Phone Moris Yu MD [...] mg by nebulization daily. 0 Active Tiotropium [place] Monohydrate (SPIRIVA RESPIMAT) 2.5 MCG/ACT AERS Inhale [...] this topic Medical Devices Implanted Type Area Brick Machine Operator Device Identifier Shelf Expiration Date Model / Serial / Lot Shell Trident Ii F 58mm 5 Screw Hole Cluster Tritanium - [id number] - [id number] Implanted:Qty: 1 on 08/29/2019 by Ron Sanchez MD at [facility] Right: Hip [employer] [id number] 12/24/2023 702-04-58F / / [id number] Screw Trident Ii 30mm 6.5mm Low Profile Hexagonal Bone - [id number] - [id number] Implanted:Qty: 1 on 08/29/2019 by Ron Sanchez MD at [facility] Right: Hip [employer] [id number] 01/08/2024 2762-2428 / / [id number] Insert Trident 10d F 36mm X3 Acetabular Hip - [id number] - [id number] Implanted:Qty: 1 on 08/29/2019 by Ron Sanchez MD at [facility] Right: Hip [employer] [id number] 01/14/2024 623-10-36F / / [id number] Screw Trident Ii 30mm 6.5mm Low Profile Hexagonal Bone - [id number] - [id number] Implanted:Qty: 1 on 08/29/2019 by Ron Sanchez MD at [facility] Right: Hip [employer] [id number] 12/10/2023 8428-4533 / / [id number] Stem Hip Neck Angle 127 Degree Accolade Ii Sz6 - [id number] - [id number] Implanted:Qty: 1 on 08/29/2019 by Ron Sanchez MD at [facility] Right: Hip [employer] [id number] 10/04/2022 4905-8061 / / [id number] Head V40 -5mm 36mm Delta Femoral Hip - [id number] - [id number] Implanted:Qty: 1 on 08/29/2019 by Ron Sanchez MD at [facility] Right: Hip [employer] [id number] 07/31/2024 6570-0-036 / / [id number] Advance Directives For more information, please contact: [phone] Latest Code Status on File Code Status [...] way: discussion with patient . Care Teams Medical Detail Representative Relationship Specialty Start Date End Date Moris Yu MD [address] [place] [address] PCP - General Internal Medicine 06/26/19
--- OUTSIDE RECORDS SUMMARY | 2024-12-02 17:42 | XMS_ITS | Encounter Summary ---
Author Organization [facility] Address [address] [facility] [address] [place] [address] Phone Care Team Providers Care Dairy Bacteriologist Name Role Phone Moris Yu MD Primary Care Provider Sebastian Patricia MD Unavailable [phone] Joon Hopper MD Unavailable [phone] Encounter Details Date Type Department Care Team (Latest Contact Info) Description 11/25/2014 Transcribe Orders [facility] Echocardiography [address] [place] [address] Jerardo Christianson MD [address] [facility] [place] [address] [email or web address] Sarcoidosis (Primary Dx) Social History Tobacco Use Types Packs/Day Years Used Date Smoking Tobacco: Never Assessed Sex and Gender Information Value Date Recorded Sex Assigned at Not on file Legal Sex Male 4:56 PM EST Gender Identity Not on file Sexual Orientation Not on file documented as of this encounter Plan of Treatment Not on file documented as of this encounter Results * (ABNORMAL) TTE COMPREHENSIVE (01/09/2015 2:59 PM EST) Ejection Fraction 55.00 50 - 75 % Left Ventricular Mass 267.95 g Left Ventricle indexed to BSA 123.48 g/mL Relative Wall Thickness 0.42 0.22 - 0.42 Left Ventricle E Wave Speed 42.00 cm/s Left Ventricle A Wave Speed cm/s Left Ventricle Ea Septal Wave Speed 5.00 cm/s Echo E/Ea 8.40 Left Ventricle Ea Lateral Wave Speed cm/s Raw LV EF% % Left Ventricular Apical Contribution Mitral Valve Deceleration Time ms Left Ventricle Diastolic Volume 100.00 mL Left Ventricle Diastolic Volume Index 46.08 mL/m2 Left Ventricle Systolic Volume 48.00 mL Left Ventricle Systolic Volume Index 22.12 mL/m2 Left Ventricular Outflow Tract Velocity m/s Left Ventricular Outflow Tract Gradient at Rest mmHg Left Ventricle Mid Gradient mmHg Left Ventricular Outflow Tract Gradient at Valsalva mmHg Left Ventricle Internal Diameter End Diastole 52.00 42 - 58 mm Left Ventricle Internal Diameter End Systole 40.00(A) 25.0 - 39.8 mm Interventricular Septum Thickness 1.10 cm Left Ventricular Posterior Wall Thickness 1.10 cm Pulmonary Artery Pressure mmHg Right Ventricle Estimated PA Pressure mmHg Inferior Vena Cava Diameter 0.0 - 2.1 cm Right Ventricular Outflow Tract Stroke Volume cm3 Right Ventricle TAPSE 17 - 31 mm Right Ventricle Tricuspid Anular Systolic Motion (S') cm/s Right Ventricle Ejection Fraction 3D Equation 45 - 71 % Right Ventricle Basal Diameter 25 - 41 mm Right Ventricle Mid Diameter 19 - 35 mm Right Ventricle Longitudinal Diameter 59 - 83 mm Right Ventricular Outflow Tract PLAX Diameter 20 - 30 mm Right Ventricular Outflow Tract Proximal Diameter 21 - 35 mm Right Ventricular Outflow Tract Distal Diameter 17 - 27 mm Right Ventricle Wall Thickness Max 1 - 5 mm Right Ventricle Pulse Doppler S Wave 9.5 - 18.7 cm/s Right Ventricle Color Doppler S Wave 6 - 13.4 cm/s Right Ventricle Fractional Area Change (FAC) Right Ventricle Free Wall 2D Strain -20 - -38 % Right Ventricle Pulse Doppler MPI 0.09 - 0.43 Right Ventricle Tissue Doppler MPI 0.22 - 0.54 Left Atrium Dimension Anterior-Posterior 46.00 mm Left Atrium Dimension Superior-Inferior 2.9 - 5.3 cm Left Atrium Dimension Medial-Lateral 2.9 - 4.9 cm Left Atrial Appendage Velocity cm/s Left Atrial Volume mL Left Atrial Volume Index mL/m2 Pulmonary Vein S/D Ratio Pulmonary Venous Atrial Reverse Wave Duration msec Pulmonary Peak Systolic Velocity m/s Pulmonary Peak Diastolic Velocity m/s Right Atrium Dimension Superior-Inferior mm Right Atrium Dimension Medial-Lateral mm Mitral Valve Total Score Mitral Valve Mobility Score Mitral Valve Calcification Score Mitral Valve Thickening Score Mitral Valve Subvalvular Score Mitral Valve Peak Gradient mmHg Mitral Valve Mean Gradient mmHg Mitral Valve Gradient HR bpm Mitral Valve Gradient Cardiac Output L/min Mitral Valve Area Planimetry Equation cm2 Mitral Valve Area Pressure Half Time Eq cm2 Mitral Valve Area Continuity Equation cm2 Mitral Valve Area PISA Equation cm2 Mitral Valve Vnyquist m/s Mitral Valve Area cm2 Mitral Valve PISA Angle Correction deg Mitral Valve Regurgitant Fraction % Mitral Valve Jet Area Ratio Mitral Valve Vena Contracta cm Mitral Valve EROA cm2 Mitral Valve PISA Radius cm Mitral Valve Aliasing Velocity cm/s Mitral Valve Peak Velocity cm/s Mitral Valve Regurgitation Time Volume Integral cm Mitral Valve EROA 3D Equation cm2 Mitral Valve Regurgitant Volume PISA Equation ml Mitral Valve Regurgitant Volume Doppler ml Mitral Valve C-SEPT Mitral Valve Coaptation Length cm Mitral Valve Tenting Area cm2 Mitral Valve Tenting Volume ml Mitral Valve Anterior Leaflet Length cm Mitral Valve Anterior Leaflet Area cm2 Mitral Valve Posterior Leaflet Length cm Mitral Valve Posterior Leaflet Area cm2 Mitral Valve Anterior/Posterior Ratio Mitral Valve Annular Diameter AP Diastolic cm Mitral Valve Annular Diameter AP Systolic cm Mitral Valve Annular Diameter Commissural Diastolic cm Mitral Valve Annular Diameter Commissural Systolic cm Mitral Valve Annular Area Systolic cm2 Mitral Valve Annular Perimiter Systolic cm Aorta Mitral Angle deg Mitral Valve Annular Area Diastolic cm2 Mitral Valve Annular Perimiter Diastolic cm Mitral Valve Intertrigonal Distance Systolic cm Mitral Valve Intertrigonal Distance Diastolic cm Pulmonary Artery Systolic Pressure Estimated mmHg Right Atrium Pressure Estimated 10.00 mmHg Tricuspid Valve Peak Velocity m/s Right Ventricle to Right Atrium Pressure Gradient mmHg Tricuspid Valve Pressure Half Time Equation cm2 Tricuspid Valve Peak Gradient mmhg Tricuspid Valve Mean Gradient mmHg Tricuspid Valve Annulus Area cm2 Tricuspid Valve Annulus Dimension Anterior-Posterior cm Tricuspid Valve Annulus Dimension Medial Lateral cm Tricuspid Valve Anterior Leaflet Area cm2 Tricuspid Valve Posterior Leaflet Area cm2 Tricuspid Valve Septal Leaflet Area cm2 Tricuspid Valve Deceleration Time ms Tricuspid Valve E Wave Velocity Max cm/s Right Ventricle Peak Systolic Pressure mmHg Tricuspid Valve Vena Contracta cm Tricuspid Valve Regurgitant Volume ml Tricuspid Valve Regurgitant Volume Fraction % Tricuspid Valve Vnyquist m/s Tricuspid Valve PISA Radius cm Tricuspid Valve EROA PISA Equation cm2 Aortic Valve Peak Gradient mmHg Aortic Valve Mean Gradient mmHg LVOTmvPGR1 mmHg LVOT Gradient Mid Ventricle Peak Valsalva mmHg Left Ventricular Outflow Tract Diameter cm Aortic Valve Area cm2 Aortic Valve Area Index cm2/m2 Aortic Valve Annulus Dimension 1 2.0 - 3.2 cm Aortic Sinus Diameter cm Sinotubular Junction Diameter 2.3 - 3.5 cm Ascending Aorta Diameter cm Aortic Arch Diameter cm Aortic Isthmus Diameter cm Aortic Valve Aliasing Velocity cm/s Sinus of Valsalva Index 1.3 - 2.1 cm/m2 Proximal Ascending Aorta Index 1.1 - 1.9 cm/m2 Aortic Valve Regurgitant Volume ml Aortic Valve Regurgitant Fraction % Aortic Valve Regurgitation Pressure Half Time ms Aortic Valve Vena Contracta cm Aortic Valve Vnyquist m/s Aortic Valve PISA Radius cm Aortic Regurgitation Max Velocity m/s Aortic Valve EROA cm2 Aortic Valve Deceleration Time ms Aortic Valve Jet Height to Left Vent Outflow Tract Descending Aorta Diameter cm Aortic Valve Regurgitation Time Volume Integral cm Aortic Valve Peak Diastolic Velocity cm/s Aortic Valve Annulus Area cm2 Aortic Valve Annulus Dimension 2 cm Aortic Valve Annulus Perimeter cm Aortic Valve Mean Diameter cm Aortic Valve Distance to Coronary Ostia (LM) cm Aortic Valve Distance to Coronary [place] (RCA) cm Aortic Valve Left Coronary Leaflet Length cm Aortic Valve Right Coronary Leaflet Length cm Aortic Valve Peak Velocity cm/s Pulmonary Valve Peak Gradient mmHg Pulmonary Valve Mean Gradient mmHg Pulmonary Valve Peak Velocity m/s Pulmonary Valve Area cm2 Right Ventricular Outflow Tract Gradient mmHg Right Ventricular Outflow Tract Peak Velocity m/s Pulmonary Valve Annulus Dimension mm Pulmonary Artery Main - Dimension mm Pulmonary Artery Right - Dimension mm Pulmonary Artery Left - Dimension mm Right Ventricular Outflow Tract Pressure mmHg Pulmonary Artery Acceleration Time msec Pulmoary Artery Deceleration Time msec Pulmonary Artery End Diastolic Pressure mmHg Pulmonary Valve Pressure Half Time ms Patent Ductus Arteriosus Dimension mm Right Ventricular Outflow Tract Velocity Time Integral cm Pericardium Effusion Dimension 1 cm Pericardium Effusion Dimension 2 cm Pericardium Effusion Dimension 3 cm Body Surface Area 2.17 m2 Height 177.80 cm Weight 98.88 kg Wall Thickness Max cm Left Ventricle Aneurysm Dimension 1 cm Left Ventricle Aneurysm Dimension 2 cm Left Ventricle Aneurysm Dimension 3 cm Left Ventricle Pseudoaneurysm Dimension 1 cm Left Ventricle Pseudoaneurysm Dimension 2 cm Left Ventricle Pseudoaneurysm Dimension 3 cm Left Ventricle Thrombus Dimension 1 cm Left Ventricle Thrombus Dimension 2 cm Left Ventricle Thrombus Dimension 3 cm Left Ventricle Mass Dimension 1 cm Left Ventricle Mass Dimension 2 cm Left Ventricle Mass Dimension 3 cm Aortic Sinus mm Left Atrium Diameter mm Systolic BP mmHg Diastolic BP mmHg Anatomical Region Laterality Modality Heart [facility] Narrative 01/09/2015 4:39 PM EST Left Ventricle The left ventricular cavity size and wall thickness are normal. Left ventricular systolic function appears normal. The ejection fraction is 55% (Normal 50-75%). There are no segmental left ventricular wall motion abnormalities noted. Left ventricular diastolic function appears within normal limits for age. Right Ventricle The right ventricular size is normal. The right ventricular systolic function is normal. Left Atrium The left atrium is mildly dilated. Right Atrium The right atrium is normal in size. The IVC is normal in size (2.1cm or less). The IVC demonstrates normal collapse with inspiration. Mitral Valve There is diffuse mild increased thickening of both mitral valve leaflets. There is trace to mild mitral regurgitation detected by spectral and color Doppler. Tricuspid Valve The tricuspid valve appears normal. There is color and spectral Doppler evidence of trace tricuspid regurgitation. There is an insufficient TR Doppler profile to calculate an RV systolic pressure. Aortic Valve The aortic valve appears normal. The aortic valve is tricuspid. There is no evidence of valvular aortic stenosis. There is evidence of trace aortic regurgitation by color and spectral Doppler. The visualized portions of the thoracic aorta appears normal. Pulmonic Valve The pulmonary valve appears normal. There is evidence of trace pulmonary regurgitation by color and spectral Doppler. The pulmonary artery appears normal. Pericardium There is no evidence of pericardial effusion. Comparison Findings No prior studies for comparison. us Jerardo Christianson MD CV ECHO ORDERABLES Final Re sult * Stress Test Exercise with MVO2 (01/09/2015 2:56 PM EST) Anatomical Region Laterality Modality Heart [facility] 01/09/2015 1:00 PM EST Narrative 01/09/2015 3:[address] Christianson, Your patient Erasom Quevedo, a 69 year old male with known CAD and prior PCI was referred to us for a cardiopulmonary exercise treadmill test to evaluate for sarcoidosis. His cardiopulmonary risk factors include hypertension, dyslipidemia and obesity. The patient's resting ECG showed normal sinus rhythm and non-specific T wave abnormalities. He was on the following medications at the time of testing: Metoprolol, Aspirin, Atorvastatin, Brilinta, Allopurinol, Flonase, Singulair, Dulera. Exercise Protocol: Mr. Quevedo exercised for 8:52 minutes of a moderate ramp treadmill protocol. Oxygen saturation was measured at rest and stress using a pulse-oximeter. The heart rate increased from 63 bpm at rest to a peak heart rate of 125 bpm (83% age predicted maximal heart rate), and the blood pressure increased from 140/82 mm Hg at rest to 172/80 mm Hg at peak exercise (RPP: 29973). Oxygen saturation remained unchanged at 97% during exercise. Exercise was terminated due to fatigue. The symptomatic response to exercise was non-ischemic. The blood pressure response was normal. The ECG response to exercise showed inferolateral ST depression with frequent ventricular ectopy. During exercise, ventricular bigeminy, ventricular couplets, ventricular triplets, isolated PVC's and one 4-beat run VT were observed. = ANTHROPOMETRICS = Age: 69 Gender: Male Height: 70 in/178 cm Weight: 218 lb/99 kg BMI: 31.3 kg/m2 = EXERCISE CAPACITY = Exercise Protocol: Moderate Ramp Treadmill Exercise Duration: 8:52 (min:sec) Reason to End Exercise: Fatigue. Predicted Measured % of Predicted Rest VO2 (mL/min) 344 Peak VO2 (mL/min) 2345 1699 72% Peak VO2/kg(mL/kg/min) 17.2 = CARDIOVASCULAR RESPONSE = Symptomatic Response: Non-ischemic. Blood Pressure Response: Normal. ECG Response: inferolateral ST depression with frequent ventricular ectopy. Stress Induced Arrhythmias: During exercise, ventricular bigeminy, couplets, triplets, PVC's and one 4-beat run VT were observed. Predicted Measured % of Predicted Rest Heart Rate (bpm) 63 Peak Heart Rate (bpm) 151 125 83% HR Romayor (bpm) 88 HR Recovery (1 min) > 12 42 Rest Blood Press (mm Hg) 140/82 Peak Blood Press (mm Hg) 172/80 Peak O2 Pulse (mL/beat) 15.5 13.6 88% VO2/WR (mL/min/watt) > 10.2 +/- 1 135.5 HR/VO2 < 50 47.2 Cardiac Output (Qt) 16.8 0% Rest RER 0.71 Peak RER 1 Hemodynamic Stage Data: Intensity Heart Blood RPE Speed (Grade Rate Pressure (Scale (MPH) or Otero) (bmp) (mm Hg) of 10) BASELINE Supine 63 140/82 Sitting 61 134/78 Standing 61 134/78 STRESS Stage 1 2.0 4 84 152/78 3 Stage 2 2.6 7 112 164/80 4 Stage 3 3.2 10 125 172/80 6 RECOVERY IPE Standing 105 1 Minute 83 168/74 3 Minute 75 116/80 5 Minute 71 118/80 8 Minutes 73 118/74 = VENTILATORY RESPONSE = Measured Percent Respiratory Romayor VE/VCO2 ([place]) 31.62 VE @ Peak 59.6 = GAS EXCHANGE VARIABLES = Rest Peak SaO2% 97% 96% In summary, the test results were: 1. Functional Capacity: 17.2 mL/kg/min (4.9 METS) 2. Peak Heart Rate: 125 bpm (83% age-predicted maximal heart rate). 3. Symptomatic Response: Non-ischemic. 4. Peak Blood Pressure: 172/80 mm Hg. 5. Blood Pressure Response: Normal. 6. ECG Response: inferolateral ST depression with frequent ventricular ectopy. 7. Stress-induced Arrhythmia: ventricular bigeminy,ventricular couplets,ventricular triplets, isolated PVC's and one 4-beat run of VT. CONCLUSION: 1. Inadequate exercise effort based on RER<1.05 (RER=1.00). Mildly reduced functional capacity based on peak VO2 of 17.2 mL/kg/min that was 71% of predicted at the exercise effort achieved. Anerobic threshold not achieved. 2. Borderline VE/VCO2 slope (31.62) 4. Exercise induced ventricular ectopy and inferolateral ST depression that may be consistent with myocardial ischemia. 5. Normal blood pressure response to exercise. No prior MVO2 study for comparison. Stress ECG tracings available from [facility]'s [employer]. Findings emailed to Dr. Christianson at 3pm on 01/09/2015. Thank you for referring this patient to us. Sincerely yours, Lit Kevin M.D., Attending Physician Procedure Note Lit Kevin MD, MPH - 01/09/[address] Christianson, Your patient Erasmo Quevedo, a 69 year old male with known CAD and prior PCIwas referred to us for a cardiopulmonary exercise treadmill test toevaluate for sarcoidosis. His cardiopulmonary risk factors includehypertension, dyslipidemia and obesity. The patient's resting ECG showed normal sinus rhythm and non-specific Twave abnormalities. He was on the following medications at the time oftesting: Metoprolol, Aspirin, Atorvastatin, Brilinta, Allopurinol,Flonase, Singulair, Dulera. Exercise Protocol: Mr. Quevedo exercised for 8:52 minutes of a moderate ramp treadmillprotocol. Oxygen saturation was measured at rest and stress using apulse-oximeter. The heart rate increased from 63 bpm at rest to a peakheart rate of 125 bpm (83% age predicted maximal heart rate), and the blood pressure increased from 140/82 mm Hg atrest to 172/80 mm Hg at peak exercise (RPP: 06882). Oxygen saturationremained unchanged at 97% during exercise. Exercise was terminated due tofatigue. The symptomatic response to exercise was non-ischemic. The blood pressure response wasnormal. The ECG response to exercise showed inferolateral ST depressionwith frequent ventricular ectopy. During exercise, ventricular bigeminy,ventricular couplets, ventricular triplets, isolated PVC's and one 4-beat run VT were observed. = ANTHROPOMETRICS = Age: 69 Gender: Male Height: 70 in/178 cm Weight: 218 lb/99 kg BMI: 31.3 kg/m2 = EXERCISE CAPACITY = Exercise Protocol: Moderate Ramp Treadmill Exercise Duration: 8:52 (min:sec) Reason to End Exercise: Fatigue. Predicted Measured % of Predicted Rest VO2 (mL/min) 344 Peak VO2 (mL/min) 2345 1699 72% Peak VO2/kg(mL/kg/min) 17.2 = CARDIOVASCULAR RESPONSE = Symptomatic Response: Non-ischemic. Blood Pressure Response: Normal. ECG Response: inferolateral ST depression with frequentventricular ectopy. Stress Induced Arrhythmias: During exercise, ventricular bigeminy, couplets, triplets, PVC's and one 4-beat run VT were observed. Predicted Measured % of Predicted Rest Heart Rate (bpm) 63 Peak Heart Rate (bpm) 151 125 83% HR Romayor (bpm) 88 HR Recovery (1 min) > 12 42 Rest Blood Press (mm Hg) 140/82 Peak Blood Press (mm Hg) 172/80 Peak O2 Pulse (mL/beat) 15.5 13.6 88% VO2/WR (mL/min/watt) > 10.2 +/- 1 135.5 HR/VO2 < 50 47.2 Cardiac Output (Qt) 16.8 0% Rest RER 0.71 Peak RER 1 Hemodynamic Stage Data: Intensity Heart Blood RPE Speed (Grade Rate Pressure (Scale (MPH) or Otero) (bmp) (mm Hg) of 10) BASELINE Supine 63 140/82 Sitting 61 134/78 Standing 61 134/78 STRESS Stage 1 2.0 4 84 152/78 3 Stage 2 2.6 7 112 164/80 4 Stage 3 3.2 10 125 172/80 6 RECOVERY IPE Standing 105 1 Minute 83 168/74 3 Minute 75 116/80 5 Minute 71 118/80 8 Minutes 73 118/74 = VENTILATORY RESPONSE = Measured Percent Respiratory Romayor VE/VCO2 ([place]) 31.62 VE @ Peak 59.6 = GAS EXCHANGE VARIABLES = Rest Peak SaO2% 97% 96% In summary, the test results were: 1. Functional Capacity: 17.2 mL/kg/min (4.9 METS) 2. Peak Heart Rate: 125 bpm (83% age-predicted maximal heart rate). 3. Symptomatic Response: Non-ischemic. 4. Peak Blood Pressure: 172/80 mm Hg. 5. Blood Pressure Response: Normal. 6. ECG Response: inferolateral ST depression with frequent ventricularectopy. 7. Stress-induced Arrhythmia: ventricular bigeminy,ventricularcouplets,ventricular triplets, isolated PVC's and one 4-beat run of VT. CONCLUSION: 1. Inadequate exercise effort based on RER<1.05 (RER=1.00). Mildly reducedfunctional capacity based on peak VO2 of 17.2 mL/kg/min that was 71% ofpredicted at the exercise effort achieved. Anerobic threshold notachieved. 2. Borderline VE/VCO2 slope (31.62) 4. Exercise induced ventricular ectopy and inferolateral ST depressionthat may be consistent with myocardial ischemia. 5. Normal blood pressure response to exercise. No prior MVO2 study for comparison. Stress ECG tracings available from [facility]'s [employer]. Findings emailed to Dr. Christianson at 3pm on 01/09/2015. Thank you for referring this patient to us. Sincerely yours, Lit Kevin M.D., Attending Physician us Jerardo Christianson MD CV STRESS ORDERABLES Final Result documented in this encounter Visit Diagnoses Diagnosis Sarcoidosis- Primary Sarcoidosis Sarcoidosis documented in this encounter Care Teams Dairy Bacteriologist Relationship Specialty Start Date End Date Moris Yu MD [address] [place] [address] [place] [address] PCP - General Internal Medicine 11/14/14 Sebastian Patricia MD [address] [place] [address] [place] [id number] Internal Medicine 01/27/15 Joon Hopper MD [address] [place] [address] [place] [address] Cardiology 01/27/15 documented as of this encounter Additional Source Comments The information contained in this document represents components of the legal health record. It is not the complete legal health record.[facility]
== END 2024-12-02 16:02 | disposition home or self-care (01) ==
LOC: HO.HCS 15:21
PROVIDERS: PCP Internal Medicine; Visit Provider Internal Medicine Cardiovascular Disease
DX: I48.92 Unspecified atrial flutter (principal); I25.10 Atherosclerotic heart disease of native coronary artery without angina pectoris; I42.9 Cardiomyopathy, unspecified; I35.0 Nonrheumatic aortic (valve) stenosis
CPT/HCPCS: 93010; 99214; G2211

== ENCOUNTER 2024-12-02 15:20 | Outpatient (REF) | payer MEDICARE, OTHER, SELFPAY ==
[2024-12-02 18:14] LABS: Anion Gap 13 (12-20); Blood Urea Nitrogen 19 mg/dL (9-16); Calcium 9.3 mg/dL (8.4-10.2); Carbon Dioxide 25 mmol/L (22-29); Chloride 110 mmol/L (96-108); Estimated Glomerular Filt Rate 41; Potassium 3.9 mmol/L (3.3-5.1); Sodium 144 mmol/L (135-145)
--- OUTSIDE RECORDS SUMMARY | 2024-12-02 18:23 | XMS_ITS | Clinical Summary ---
Author Organization [facility] it Address [address] [place] [address] Care Team Providers Care Planogrammer Name Role Phone Moris Yu MD Primary [...] TOTAL HIP; Surgeon: Ron Sanchez MD; Location: [facility] Service: Orthopedics; Laterality: Right; JOINT REPLACEMENT PROCEDURE:JOINT REPLACEMENT Medical History Medical History Date Comments Asthma 11/08/2016 DX:Asthma Interstitial lung disease ([facility] V24, [facility] V28) 11/08/2016 DX:Interstitial lung disease (HCC) Pulmonary sarcoidosis ([facility] V24) 11/24/2016 DX:Pulmonary sarcoidosis (HCC) Seasonal allergic rhinitis 11/24/2016 DX:Se asonal allergic rhinitis Nephrolithiasis 03/17/2017 DX:Nephrolithias is; COMMENT: 06/29/2015 Hyperlipidemia 04/20/2017 DX:Hyperlipidemi a Asthma DX:Asthma Hypertension DX:Hypertension Kidney damage DX:Kidney damage Osteoarthritis DX:Osteoarthriti s Sarcoidosis, lung ([facility] V24) DX:Sarcoidosis, lung (HCC) [...] 02/04/2022 Social Influencers of Health Screening 02/04/2022 Depression Screening 02/28/2024 COVID-19 Vaccine ( - 2023-2 5 season) 2024 Influenza Vaccine (#1) 2024 HIB Vaccines Aged [...] this topic Medical Devices Implanted Type Area Global Compensation Director Device Identifier Shelf Expiration Date Model / Serial / Lot Shell Trident Ii F 58mm 5 Screw Hole Cluster Tritanium - [id number] Implanted:Qty: 1 on 08/29/2019 by Ron Sanchez MD Right: Hip [employer] [id number] 12/24/2023 702-04-58F / / [id number] Screw Trident Ii 30mm 6.5mm Low Profile Hexagonal Bone - [id number] Implanted:Qty: 1 on 08/29/2019 by Ron Sanchez MD Right: Hip [employer] [id number] 01/08/2024 2604-0173 / / 33TH Insert Trident 10d F 36mm X3 Acetabular Hip - [id number] Implanted:Qty: 1 on 08/29/2019 by Ron Sanchez MD Right: Hip [employer] [id number] 01/14/2024 623-10-36F / / [id number] Screw Trident Ii 30mm 6.5mm Low Profile Hexagonal Bone - [id number] Implanted:Qty: 1 on 08/29/2019 by Ron Sanchez MD Right: Hip [employer] [id number] 12/10/2023 [id number] / / [id number] Stem Hip Neck Angle 127 Degree Accolade Ii Sz6 - [id number] Implanted:Qty: 1 on 08/29/2019 by Ron Sanchez MD Right: Hip [employer] [id number] 10/04/2022 [id number] / / [id number] Head V40 -5mm 36mm Delta Femoral Hip - [id number] Implanted:Qty: 1 on 08/29/2019 by Ron Sanchez MD Right: Hip [employer] [id number] 07/31/2024 6570-0-036 / / [id number] Care Teams Planogrammer Relationship Specialty Start Date End Date Moris Yu MD PCP - General Internal Medicine 01/24/17
--- OUTSIDE RECORDS SUMMARY | 2024-12-02 18:23 | XMS_ITS | Clinical Summary ---
Author Organization [facility] Address [address] [place] [address] Phone Care Team Providers Care Cook Helper Dessert Name Role Phone Moris Yu MD Primary [...] Medicare [facility] Care Teams Cook Helper Dessert Relationship Specialty Start Date End Date Moris Yu MD [address] [place] [address] PCP - General Internal Medicine 08/14/20
--- OUTSIDE RECORDS SUMMARY | 2024-12-02 18:23 | XMS_ITS | Data Portability ---
Author Organization [place] [facility] Zaldivar [place] Address [address] [place] [address] Care Team Providers Care Hob Grinder Name Role Phone CHRISTIAN WEBB Primary Care [...] eral, 2 or 3 view 023 09/23/19 [email or web address] [facility], [address], [place], [address], 16:12:07 Medication Orders None record ed. Patient TargetsNo targets recorded. Patient Instructions Encounter Date Encounter Id Patient Instructions Last Modified By Organization Details Last Modified Time 09/22/2022 three-view x-ray of the right hip reveals well-seated well-positioned total hip arthroplasty without sign of loosening. Not available 09/22/2022 13:42:30 Reason for Referral None Reported. Problems Name Problem SNOMED Code Status Onset Date Resolution Date Notes Provider Name and Address Organization Details Recorded Time Problem 53227436 Active No known active problems Not Available [facility] 23:03:53 Problem Notes None recorded. Procedures Surgical History Date Name Laterality Status Provider Name and Address Organization Details Recorded Time total replacement of hip completed Marylou [place] [facility] [place], 09/22/2022 15:39:52 Imaging Results None recorded. Procedure Notes None recorded. Medical Equipment None Reported. Allergies Allergen ID Allergen Name Allergen Category Reaction Reaction Severity Criticality Documentation Date Start Date Code Code System Note Provider Name and Address Organization Details Recorded Time 20742 Product containin g penicilli n (product) medicatio n Not available Not available Not available 11/19/20242016 42497 8001 SNOMED React ion: Rash, sever ity: Unkno wn Not Available [facility] 01:16:05 11382 doxycycli ne Not available Not available Not available Not available 11/19/20242016 3640 RxNorm UNSUR E OF RXN Not Available [facility] 5 01:16:05 86071 Iodinated contrast media (substanc e) medicatio n Not available Not available Not available 11/19/20242019 48168 2003 SNOMED React ion: Hives , sever ity: Unkno wn;CO NTRAS T DYE Not Available [facility] 5 01:16:06 02235 gadobenat e dimeglumi ne medicatio n Not available Not available Not available 11/19/20242020 96410 RxNorm Not Available [facility] 5 01:16:06 Medications Name Sig Start Date Stop Date Status Note LastModified by Organization Details LastModified Time atorvastati n 80 mg tablet active Not Available Not Available Not Available clindamycin HCl 300 mg capsule Take 2 capsules 1 hour prior to dental appointme nt 09/16 completed Not Available Not Available Not Available albuterol sulfate 2.5 mg/3 mL (0.083 %) solution for nebulizatio n Inhale 1 vial into the lungs. active Not Available Not Available No t Available trazodone 50 mg tablet active Not Available Not Available Not Available hydrocodone 5 mg-acetamin ophen 325 mg tablet Take 1 tablet by mouth every 6 (six) hours as needed for pain. 08/29 completed Not Available Not Available Not Available sennosides 8.6 mg-docusate sodium 50 mg tablet Take 1 tablet by mouth 2 (two) times a day. 2019 active Not Available Not Available Not Avai lable clindamycin HCl 150 mg capsule TAKE 4 CAPSULES (600MG DOSE) BY MOUTH 1 HOUR PRIOR TO DENTAL APPOINTME NT 09/22 completed Not Available Not Available Not Available diphenoxyla te-atropine 2.5 mg-0.025 mg tablet Take 1 tablet by mouth 4 (four) times a day as needed for diarrhea. active Not Available Not Available No t Available allopurinol 100 mg tablet Take 100 mg by mouth. active Not Available Not Available No t Available sulfamethox azole 800 mg-trimetho prim 160 mg tablet Take 1 tablet (160 mg of trimethop rim total) by mouth 2 (two) times a day. 2019 active Not Available Not Available Not Avai lable aspirin 81 mg tablet,jeni yed release Take 1 tablet (81 mg total) by mouth 2 (two) times a day after meals. 2019 active Not Available Not Available Not Avai lable bisoprolol fumarate 5 mg tablet Take 5 mg by mouth. active Not Available Not Available No t Available hydromorpho ne 2 mg tablet Take 1 tablet (2 mg total) by mouth every 4 (four) hours as needed. May fill for lesser quantity. 2019 active Not Available Not Available Not Avai lable methocarbam ol 750 mg tablet Take 1 tablet (750 mg total) by mouth every 6 (six) hours as needed (Muscle Spasms). 2019 active Not Available Not Available Not Avai lable tamsulosin 0.4 mg capsule Take 1 capsule (0.4 mg total) by mouth daily. 2019 active Not Available Not Available Not Avai lable potassium citrate ER 10 mEq (1,080 mg) tablet,exte nded release active Not Available Not Available Not Available pantoprazol e 40 mg tablet,jeni yed release Take 1 tablet (40 mg total) by mouth every morning on an empty stomach. 2019 active Not Available Not Available Not Avai lable losartan 25 mg tablet active Not Available Not Available No t Available brimonidine 0.2 % eye drops Place 1 drop into both eyes every night at bedtime. active Not Available Not Available No t Available omeprazole 20 mg capsule,del ayed release 2019 active Not Available Not Available Not Avai lable budesonide 0.5 mg/2 mL suspension for nebulizatio n Take 0.5 mg by nebulizat ion daily. active Not Available Not Available No t Available montelukast 10 mg tablet Take 10 mg by mouth. active Not Available Not Available No t Available aspirin 81 mg tablet Take 81 mg by mouth daily. 08/29 completed Not Available Not Available Not Available furosemide 20 mg tablet 2020 active Not Available Not Available Not Avai lable amoxicillin 875 mg-potassiu m clavulanate 125 mg tablet TAKE 1 TABLET BY MOUTH EVERY 12 HOURS FOR 10 DAYS 09/22 completed Not Available Not Available Not Available escitalopra m 10 mg tablet 09/22 completed Not Available Not Available Not Available naproxen sodium 220 mg capsule Take 3 tablets by mouth 2 (two) times a day. 08/29 completed Not Available Not Available Not Available azelastine 137 mcg-flutica sone 50 mcg/spray nasal spray spray or apply 1 spray inside Nose 2 (two) times a day. active Not Available Not Available No t Available Spiriva Respimat 2.5 mcg/actuati on solution for inhalation active Not Available Not [...] Updated DateTime 09/22/2022 154.94 cm 43.5 kg/m2 503155.[address] [facility], 09/22/2022 14:14:14 Social History None recorded. Functional [...] Diagnosis SNOMED-CT Code Diagnosis ICD10 Code Diagnosis IMO Codes Diagnosis Note 44911 TISH WALDROP [address] [place] [address] [place] [address] 09/22/2022 13:17:45 09/22/2022 13:52:32 History of total replacement of right hip joint [id number] 11820 Z96.641 Health Concerns Section Related Observation LastModified by Organization Jerald angeles LastModified Time None Recorded Concern Status LastModified by Organization Details LastModified Time None Recorded Advance Directives Directive None Recorded Payers Insurance Date Sequence Insurance Name Policy Number Policy Grijalva Covered Member ID Grijalva Member ID Guarantor Name 09/12/2022 1 [place]ICARE [place]: [employer] Erasmo Quevedo [id number] Erasmo B Sae 09/26/2022 2 FOR LIFE ( - MEDICARE SUPPLEMENT) Erasmo Quevedo [id number] Erasmo Quevedo Notes Date Note Type Note Provider Name and Address Organization Details Recorded Time 09/22/2022 text/html R hip. R-DEE 09/18/19. xrays today. 77-year-old male history of right total hip arthroplasty 09/18/[address] Sanchez. Here for annual follow-up. States intermittent discomfort however doing well. He does do stretching exercises. He also takes his antibiotic prophylaxis prior to dental work. COREEN SIMS PA-C [address] [place] [address], [place], [address], [place] [facility], 09/22/2022 13:52:09
== END 2024-12-02 15:21 | disposition home or self-care (01) ==
LOC: HO.LAB 15:20
PROVIDERS: PCP Internal Medicine; Visit Provider Internal Medicine Cardiovascular Disease
DX: I48.92 Unspecified atrial flutter (principal); I25.10 Atherosclerotic heart disease of native coronary artery without angina pectoris; I42.9 Cardiomyopathy, unspecified; I35.0 Nonrheumatic aortic (valve) stenosis; Z79.01 Long term (current) use of anticoagulants
CPT/HCPCS: 36415; 80048; 93005; 99212